=== PATIENT | male | born 1945 | race Caucasian/White ===

== ENCOUNTER → 2017-06-26 08:08 | Outpatient (CLI) | payer MEDICARE, OTHER, SELFPAY ==
[2017-05-20 14:31] VITALS: BMI 25.0
[2017-06-26 12:18] LABS: Absolute Neutrophil Count 2.8 X10^3/uL (2.0-7.7); Basophil# 0.03 X10^3/uL; Basophil% 0.6 % (0-1); Eosinophil# 0.23 X10^3/uL; Eosinophils% 4.8 % (0-5); Hematocrit 45.9 % (40-54); Hemoglobin 15.3 g/dl (13.0-16.5); Lymphocyte % 25.1 % (19-41); Mean Corp Hgb Conc 33.3 g/gl (32-36); Mean Corpuscular Hgb 30.6 pg (27.0-32.0); Mean Corpuscular Volume 91.8 fL (80-94); Mean Platelet Vol. 9.7 fl (6.2-12.0); Monocyte# 0.47 X10^3/uL; Monocyte% 9.8 % (0-10); Neutrophil # 2.84 X10^3/uL (2.7-7.7); Neutrophil % 59.5 % (47-70); Platelet Count 340 K/mm3 (150-450); RBC Distribution Width CV 15.2 % (11.6-14.6); RBC Distribution Width SD 49.4 fl (35.1-43.9); White Blood Count 4.8 K/mm3 (4.4-11.0)
[2017-06-26 12:29] LABS: Anion Gap 10 (5-15); BUN 15 mg/dL (7-18); BUN/Creat Ratio 14.9 RATIO (10-20); Chloride 103 mmol/L (98-107); Creatinine, Serum 1.01 mg/dL (0.70-1.30); EST Glomerular Filtration Rate 77 mL/min (>60); Est Glom Filt Rate - Afr Amer 93 mL/min (>60); Glucose 132 mg/dL (70-110); Sodium Level 141 mmol/L (136-145); T4 Free Direct 1.18 ng/dL (0.76-1.46); Thyroid Stim Hormone (TSH) 1.89 uIU/mL (0.358-3.74)
[2017-06-26 12:40] LABS: POSITIVE COUNT NO; POSITIVE DIFFERENTIAL NO; POSITIVE MORPHOLOGY NO
[2017-06-26 12:42] LABS: International Normalized Ratio 1.8; Prothrombin Time (Protime)PT. 20.1 SECONDS (11.7-14.9)
== END ==
PROVIDERS: Family Provider Family Medicine; PCP Family Medicine; Visit Provider Family Medicine
DX: I48.91 Unspecified atrial fibrillation (principal); I10 Essential (primary) hypertension; E03.9 Hypothyroidism, unspecified
CPT/HCPCS: 36415; 80048; 84439; 84443; 85025; 85610

== ENCOUNTER 2017-08-13 16:54 | Observation (INO) | payer MEDICARE, OTHER, SELFPAY ==
[2017-05-20 14:31] VITALS: BMI 25.0
[2017-08-13] VITALS (13 sets, daily range): BP systolic 109–184; BP diastolic 69–107; PULSE 55–70; RESP 12–18; TEMP 36.5–36.9; O2SAT 94–98; BMI 27.3; BMI 26.5
--- NOTE | 2017-08-13 17:51 | RAD_ITS ---
STUDY: X-RAY CHEST REASON FOR EXAM: Male, 71 years old. Hypertension TECHNIQUE: PA and lateral views of the chest. COMPARISON: May 13, 2016 and January 07, 2017 FINDINGS: The lungs are hyperinflated. No focal consolidation is visualized. Normal size heart. Normal mediastinum and madeline. Normal visualized pulmonary arteries. There is atherosclerotic calcification of the aortic arch with tortuosity. There are diffuse degenerative changes of the visualized thoracic spine. There are stable bilateral rib deformities consistent with healed fractures. There is no demonstrated abnormality of the visualized soft tissue structures of the upper abdomen. RAD/Chest PA and Lateral IMPRESSION: Hyperinflated lungs may reflect underlying COPD. Electronically Signed: Cristal Holly MD at 19:37 EDT Tel , Service support ,
--- NOTE | 2017-08-13 17:51 | EKG12_ITS ---
Test Reason : CP Blood Pressure : / mmHG Vent. Rate : 058 BPM Atrial Rate : 058 BPM P-R Int : 178 ms QRS Dur : 112 ms QT Int : 426 ms P-R-T Axes : 021 -32 -04 degrees QTc Int : 418 ms Sinus bradycardia Left axis deviation Abnormal ECG Confirmed by CHANO SANCHEZ, LY ([id number]), telegraph editor NIKOLAS QUINN ([id number] on 08/14/2017 2:33:40 PM Referred By: SAROJ/STEVE Confirmed By:LY MADDEN MD
[2017-08-13] MEDS: Aspirin 81 MG TAB.CHEW 324 MG PO (18:04)
[2017-08-13 18:22] LABS: Absolute Lymphocyte Count 1.72 X10^3/ul (0.83-4.51); Absolute Neutrophil Count 3.4 X10^3/uL (2.0-7.7); Basophil# 0.02 X10^3/uL; Basophil% 0.3 % (0-1); Eosinophil# 0.24 X10^3/uL; Hematocrit 47.7 % (40-54); Hemoglobin 16.2 g/dl (13.0-16.5); Lymphocyte # 1.72 X10^3/ul (4.0); Lymphocyte % 28.5 % (19-41); Mean Corpuscular Hgb 30.6 pg (27.0-32.0); Mean Platelet Vol. 9.1 fl (6.2-12.0); Monocyte# 0.62 X10^3/uL; Monocyte% 10.3 % (0-10); Neutrophil # 3.42 X10^3/uL (2.7-7.7); Neutrophil % 56.7 % (47-70); Platelet Count 331 K/mm3 (150-450); RBC Distribution Width CV 14.9 % (11.6-14.6); RBC Distribution Width SD 48.2 fl (35.1-43.9)
--- NOTE | 2017-08-13 18:22 | NURSING ---
NO LW OR POA
[2017-08-13 18:23] LABS: POSITIVE COUNT NO; POSITIVE DIFFERENTIAL NO; POSITIVE MORPHOLOGY NO
[2017-08-13] MEDS: Labetalol 20 MG/4 ML Vial 10 MG IV (18:26)
[2017-08-13 18:28] LABS: International Normalized Ratio 1.9; Prothrombin Time (Protime)PT. 22.1 SECONDS (11.7-14.9)
[2017-08-13 18:40] LABS: Anion Gap 5 (5-15); BUN 16 mg/dL (7-18); BUN/Creat Ratio 18.3 RATIO (10-20); Calcium,Total 9.1 mg/dL (8.5-10.1); Chloride 104 mmol/L (98-107); Creatinine, Serum 0.87 mg/dL (0.70-1.30); EST Glomerular Filtration Rate 91 mL/min (>60); Est Glom Filt Rate - Afr Amer 110 mL/min (>60); Estimated Creatinine Clearance 63.32 ml/min; Glucose 90 mg/dL (74-106); Potassium 4.3 mmol/L (3.5-5.1); Sodium Level 139 mmol/L (136-145)
--- NOTE | 2017-08-13 19:43 | NURSING ---
PAGED DR. LUO
--- NOTE | 2017-08-13 19:49 | NURSING ---
DR. LUO CALLED BACK AT 1945
--- NOTE | 2017-08-13 19:54 | ED.VISSUMM ---
- ER Visit Summary Date of Service: 08/13/17 Chief Complaint: Elevated blood pressure History of Present Illness: The patient is a 71 M who was sent in by his card maker for accelerated hypertension. Over the past 2-3 weeks his blood pressures been uncontrolled. He was as high as 230s in the office today despite starting amlodipine. Therefore his physician wanted him evaluated for other causes including renal failure. The patient states he has had a mild headache. On arrival here he had about 15-20 minutes of substernal sharp chest pain which resolved by the time I evaluated him. There was no associated shortness of breath or diaphoresis and he does not have a known history of coronary artery disease. He does have a history of carotid dissections. These were nonsurgical. He is on warfarin for history of A. fib as well. He has had no neurological symptoms such as visual changes weakness paresthesias or speech difficulty. Physical Examination: Initial blood pressure 172/107 vitals otherwise unremarkable Moist mucous members Heart regular rhythm bradycardia 3 out of 6 systolic murmur no carotid bruit Lungs are clear Abdomen soft Extremities nontender without edema 2+ symmetric radial pulses Test Results: EKG shows sinus rhythm at rate of 58. CBC BMP unremarkable and troponin negative. INR 1.9. Two-view chest x-ray shows hyperinflation otherwise normal. Emergency Department Course and Treatment: Patient was given IV labetalol and on reevaluation his blood pressure is 152/93. Patient was sent by his card maker. I again spoke to Dr. Ontiveros. He asked that the patient be admitted for observation. He recommended discontinuing metoprolol in place of carvedilol. Discussed with the hospitalist and admitted. Treatment Plan: [] Disposition: Admit Impression: Accelerated hypertension Chest pain This note was generated with [employer] dictation software. It may contain incorrect words, spelling, and punctuation that were not noted in review of the chart prior to signing ED Disposition - Plan for ED Patient: Chief Complaint: Hypertension Referrals: Tapan Cornelius MD [Primary Care Provider] -
--- NOTE | 2017-08-13 19:59 | ED.DCSUM_ITS ---
- ER Visit Summary Date of Service: 08/13/17 Chief Complaint: Elevated blood pressure History of Present Illness: The patient is a 71 M who was sent in by his machine brusher for accelerated hypertension. Over the past 2-3 weeks his blood pressures been uncontrolled. He was as high as 230s in the office today despite starting amlodipine. Therefore his physician wanted him evaluated for other causes including renal failure. The patient states he has had a mild headache. On arrival here he had about 15-20 minutes of substernal sharp chest pain which resolved by the time I evaluated him. There was no associated shortness of breath or diaphoresis and he does not have a known history of coronary artery disease. He does have a history of carotid dissections. These were nonsurgical. He is on warfarin for history of A. fib as well. He has had no neurological symptoms such as visual changes weakness paresthesias or speech difficulty. Physical Examination: Initial blood pressure 172/107 vitals otherwise unremarkable Moist mucous members Heart regular rhythm bradycardia 3 out of 6 systolic murmur no carotid bruit Lungs are clear Abdomen soft Extremities nontender without edema 2+ symmetric radial pulses Test Results: EKG shows sinus rhythm at rate of 58. CBC BMP unremarkable and troponin negative. INR 1.9. Two-view chest x-ray shows hyperinflation otherwise normal. Emergency Department Course and Treatment: Patient was given IV labetalol and on reevaluation his blood pressure is 152/93. Patient was sent by his machine brusher. I again spoke to Dr. Ontiveros. He asked that the patient be admitted for observation. He recommended discontinuing metoprolol in place of carvedilol. Discussed with the hospitalist and admitted. Treatment Plan: [] Disposition: Admit Impression: Accelerated hypertension Chest pain This note was generated with [employer] dictation software. It may contain incorrect words, spelling, and punctuation that were not noted in review of the chart prior to signing ED Disposition - Plan for ED Patient: Chief Complaint: Hypertension Referrals: Tapan Cornelius MD [Primary Care Provider] -
--- NOTE | 2017-08-13 20:34 | PCM.HP.STD ---
Problem List (1) Paroxysmal A-fib Status: Chronic (2) Aortic stenosis, moderate Status: Chronic (3) Pericarditis Status: Chronic (4) SERGO (obstructive sleep apnea) Status: Chronic (5) Carotid dissection, bilateral Status: Chronic (6) Hypothyroidism Status: Chronic (7) Hypertension Status: Chronic (8) Chest pain Status: Acute Comment: He has been having chest pain now for the past 2 weeks. (9) Dyslipidemia Status: Chronic (10) Hypertensive urgency Status: Acute History of Present Illness Date of Admission: 08/13/17 Chief Complaint: chest pain. The patient is a 71 year old M who was sent to the emergency room for uncontrolled high blood pressure from his community development officer's office. Patient's blood pressure upon arrival was 224/125 at the office. Here it was as high as 184/104. Patient received 2 doses of IV labetalol and currently it is 155/91. While patient was here, he developed midsternal chest pain that lasted for 15 minutes. Patient denied any other symptoms but was noted by others to be diaphoretic. Patient states that this is similar to when he has had pleurisy. Patient's medical records do not notes pleurisy but does note the patient does have a history of pericarditis. Suspect that is probably related with peritonitis that he had had. Patient is currently chest pain-free at this time. Patient is being admitted for further chest pain evaluation and workup. [] Past Medical History Past Medical History (Chronic Problems): Chronic Problems Paroxysmal A-fib (Chronic) Aortic stenosis, moderate (Chronic) Pericarditis (Chronic) SERGO (obstructive sleep apnea) (Chronic) Carotid dissection, bilateral (Chronic) Hypothyroidism (Chronic) Hypertension (Chronic) Dyslipidemia (Chronic) Family history of cardiovascular disease (Chronic) Allergies cephalexin Adverse Reaction (Verified 08/13/17 16:58) Pain in joints levofloxacin [From Levaquin] Adverse Reaction (Verified 08/13/17 16:58) Unknown GENERALIZED ACHINESS Home Medications: Ambulatory Orders Medication Instructions Recorded Co Q-10 1 tablet PO BID 01/07/17 Levothyroxine [Synthroid] 75 mcg PO DAILY 01/07/17 Lisinopril [Zestril] 20 mg PO BID 01/07/17 Metoprolol Tartrate 12.5 mg PO BID 01/07/17 Multivitamin,Therapeutic [Thera] 1 each PO DAILY 01/07/17 Flecainide [Tambocor] 50 mg PO BID 05/20/17 Lysine [l-Lysine] 500 mg PO DAILY 05/20/17 Warfarin [Coumadin (PBKC)] 7.5 mg PO DAILY 05/20/17 Ubidecarenone [Q-Sorb Co Q-10] 100 mg PO BID 08/13/17 Surgical History: appendectomy, herniorrhaphy - Right inguinal, total knee arthroplasty - He had a right total knee arthroplasty 2 years ago and had a left total knee arthroplasty 6 weeks ago., TURP - He is actually had 3 surgeries on his prostate., - - Thymectomy Psychiatric History: No pertinent psych hx Lives: Spouse/ Significant Other Smoking Status: Never smoker Tobacco Use: Non-smoker Alcohol: None Drugs: None - *Family History Paternal History Items: - - His father suddenly at the age of 75 and the patient does not know the cause. Sibling History Items: Heart Disease - He has a brother who is older than he has has had a stent in the past and his twin sister has had an ablation. Review of Systems Constitutional: Denies: Anorexia, Chills, Fever, Weight Change Eyes: Denies: Blurred vision, Double vision HEENT: Denies: Head Aches, Sinus Congestion, Sinus Drainage Cardiovascular: Reports: Chest Pain. Denies: Edema Respiratory: Denies: Cough, Shortness of breath at rest, Sputum production Gastrointestinal: Denies: Abdominal Pain, Nausea, Vomiting Genitourinary: Denies: Dysuria Musculoskeletal: Denies: Joint Pain, Joint Tenderness Skin: Denies: Rash, Wounds Neurological: Denies: Numbness, Tingling, Focal weakness Psychiatric: Denies: Anxiety, Depression, Homicidal Ideations, Suicidal Ideations Endocrine: Denies: Change in Body Habitus, Heat/ Cold Intolerance Hematologic/ Lymphatic: Denies: Easy Bruising, Easy Bleeding, Hx of blood clot VTE Information - Inpt Only VTE Present on Admission: No Patient Problems: Active and Suspected Problems Hypertensive urgency (Acute) - Physical Exam General: Alert, Cooperative, No apparent distress HEENT: Atraumatic, Normocephalic Neck: No Nodes, Thyroid Normal Size and Texture Lungs: Clear to auscultation, Normal air movement, No rhonchi, No wheeze Cardiovascular: Regular rate, Regular Rhythm, Normal S1, Normal S2, No murmurs Abdomen: Bowel Sounds Present, Soft, Non Tender, Non-Distended, No Hepato-splenomegaly Extremities: No edema, No Calf Tenderness Skin: No rashes, No breakdown Musculoskeletal: No Tenderness to Palpation of Joints or Extremities, No Muscle Wasting Neurological: Muscle tone normal, Coordination normal Psych/Mental Status: Normal Affect, Appropriate Vital Signs Temp Pulse Resp BP Pulse Ox 36.9 C 57 L 12 155/91 H 98 08/13/17 16:55 08/13/17 19:56 08/13/17 19:56 08/13/17 19:56 08/13/17 19:56 Oxygen Delivery Method Room Air Weight: 72.2 kg Body Mass Index (BMI) 27.3 Finger Stick Blood Glucose 89 Laboratory Tests Past 24 Hrs 08/13/17 08/13/17 08/13/17 18:10 18:10 18:10 WBC 6.0 RBC 5.30 Hgb 16.2 Hct 47.7 MCV 90.0 MCH 30.6 MCHC 34.0 RDW 14.9 H RDW Differential 48.2 H Plt Count 331 MPV 9.1 Immature Gran % (Auto) 0.200 Neut % (Auto) 56.7 Lymph % (Auto) 28.5 [place] % (Auto) 10.3 H Eos % (Auto) 4.0 Baso % (Auto) 0.3 Absolute Neuts (auto) 3.4 Absolute Lymphs (auto) 1.72 Total Counted Not Reportable PT 22.1 H INR 1.9 Sodium 139 Potassium 4.3 Chloride 104 Carbon Dioxide 30.0 Anion Gap 5 BUN 16 Creatinine 0.87 Estim Creat Clear Calc 63.32 Est GFR (MDRD) Af Amer 110 Est GFR (MDRD) Non-Af 91 BUN/Creatinine Ratio 18.3 Glucose 90 Calcium 9.1 Troponin I < 0.02 EKG reviewed and showed normal sinus rhythm. Clinical Impression(s) from Imaging Studies Chest X-Ray 08/13/17 17:51 IMPRESSION: Hyperinflated lungs may reflect underlying COPD. Electronically Signed: Cristal Holly MD at 19:37 EDT Tel , Service support , Assessment/Plan Active and Suspected Problems Hypertensive urgency (Acute) 1. Chest pain atypical Workup here thus far has been negative Plan is for further workup with a nuclear stress in the morning. 2. Hypertensive urgency Improved. Continue with lisinopril 20 mg twice daily per cardiology's recommendations, change metoprolol tartrate to carvedilol. Patient will be started on carvedilol 6.25 mg twice daily. Patient was on an as needed dose of amlodipine. Amlodipine not be used as a more of a scheduled medication then as needed. Will hold off on starting amlodipine based on how his blood pressure will respond with the carvedilol for now. 3. Carotid dissections stable follow up with vascular surgery 4. pAfib in NSR continue w coumadin and Bblocker 5. DVT proph: on coumadin. Code Visit OBSV E&M: 10346 Initial observation care L3
--- NOTE | 2017-08-13 20:45 | HP.PCM_ITS ---
Problem List (1) Paroxysmal A-fib Status: Chronic (2) Aortic stenosis, moderate Status: Chronic (3) Pericarditis Status: Chronic (4) SERGO (obstructive sleep apnea) Status: Chronic (5) Carotid dissection, bilateral Status: Chronic (6) Hypothyroidism Status: Chronic (7) Hypertension Status: Chronic (8) Chest pain Status: Acute Comment: He has been having chest pain now for the past 2 weeks. (9) Dyslipidemia Status: Chronic (10) Hypertensive urgency Status: Acute History of Present Illness Date of Admission: 08/13/17 Chief Complaint: chest pain. The patient is a 71 year old M who was sent to the emergency room for uncontrolled high blood pressure from his groover operator's office. Patient's blood pressure upon arrival was 224/125 at the office. Here it was as high as 184/104. Patient received 2 doses of IV labetalol and currently it is 155/91. While patient was here, he developed midsternal chest pain that lasted for 15 minutes. Patient denied any other symptoms but was noted by others to be diaphoretic. Patient states that this is similar to when he has had pleurisy . Patient's medical records do not notes pleurisy but does note the patient does have a history of pericarditis. Suspect that is probably related with peritonitis that he had had. Patient is currently chest pain-free at this time. Patient is being admitted for further chest pain evaluation and workup. [] Past Medical History Past Medical History (Chronic Problems): Chronic Problems Paroxysmal A-fib (Chronic) Aortic stenosis, moderate (Chronic) Pericarditis (Chronic) SERGO (obstructive sleep apnea) (Chronic) Carotid dissection, bilateral (Chronic) Hypothyroidism (Chronic) Hypertension (Chronic) Dyslipidemia (Chronic) Family history of cardiovascular disease (Chronic) Allergies cephalexin Adverse Reaction (Verified 08/13/17 16:58) Pain in joints levofloxacin [From Levaquin] Adverse Reaction (Verified 08/13/17 16:58) Unknown GENERALIZED ACHINESS Home Medications: Ambulatory Orders Medication Instructions Recorded Co Q-10 1 tablet PO BID 01/07/17 Levothyroxine [Synthroid] 75 mcg PO DAILY 01/07/17 Lisinopril [Zestril] 20 mg PO BID 01/07/17 Metoprolol Tartrate 12.5 mg PO BID 01/07/17 Multivitamin,Therapeutic [Thera] 1 each PO DAILY 01/07/17 Flecainide [Tambocor] 50 mg PO BID 05/20/17 Lysine [l-Lysine] 500 mg PO DAILY 05/20/17 Warfarin [Coumadin (PBKC)] 7.5 mg PO DAILY 05/20/17 Ubidecarenone [Q-Sorb Co Q-10] 100 mg PO BID 08/13/17 Surgical History: appendectomy, herniorrhaphy - Right inguinal, total knee arthroplasty - He had a right total knee arthroplasty 2 years ago and had a left total knee arthroplasty 6 weeks ago., TURP - He is actually had 3 surgeries on his prostate., - - Thymectomy Psychiatric History: No pertinent psych hx Lives: Spouse/ Significant Other Smoking Status: Never smoker Tobacco Use: Non-smoker Alcohol: None Drugs: None - *Family History Paternal History Items: - - His father suddenly at the age of 75 and the patient does not know the cause. Sibling History Items: Heart Disease - He has a brother who is older than he has has had a stent in the past and his twin sister has had an ablation. Review of Systems Constitutional: Denies: Anorexia, Chills, Fever, Weight Change Eyes: Denies: Blurred vision, Double vision HEENT: Denies: Head Aches, Sinus Congestion, Sinus Drainage Cardiovascular: Reports: Chest Pain. Denies: Edema Respiratory: Denies: Cough, Shortness of breath at rest, Sputum production Gastrointestinal: Denies: Abdominal Pain, Nausea, Vomiting Genitourinary: Denies: Dysuria Musculoskeletal: Denies: Joint Pain, Joint Tenderness Skin: Denies: Rash, Wounds Neurological: Denies: Numbness, Tingling, Focal weakness Psychiatric: Denies: Anxiety, Depression, Homicidal Ideations, Suicidal Ideations Endocrine: Denies: Change in Body Habitus, Heat/ Cold Intolerance Hematologic/ Lymphatic: Denies: Easy Bruising, Easy Bleeding, Hx of blood clot VTE Information - Inpt Only VTE Present on Admission: No Patient Problems: Active and Suspected Problems Hypertensive urgency (Acute) - Physical Exam General: Alert, Cooperative, No apparent distress HEENT: Atraumatic, Normocephalic Neck: No Nodes, Thyroid Normal Size and Texture Lungs: Clear to auscultation, Normal air movement, No rhonchi, No wheeze Cardiovascular: Regular rate, Regular Rhythm, Normal S1, Normal S2, No murmurs Abdomen: Bowel Sounds Present, Soft, Non Tender, Non-Distended, No Hepato- splenomegaly Extremities: No edema, No Calf Tenderness Skin: No rashes, No breakdown Musculoskeletal: No Tenderness to Palpation of Joints or Extremities, No Muscle Wasting Neurological: Muscle tone normal, Coordination normal Psych/Mental Status: Normal Affect, Appropriate Vital Signs Temp Pulse Resp BP Pulse Ox 36.9 C 57 L 12 155/91 H 98 08/13/17 16:55 08/13/17 19:56 08/13/17 19:56 08/13/17 19:56 08/13/17 19:56 Oxygen Delivery Method Room Air Weight: 72.2 kg Body Mass Index (BMI) 27.3 Finger Stick Blood Glucose 89 Laboratory Tests Past 24 Hrs 08/13/17 08/13/17 08/13/17 18:10 18:10 18:10 WBC 6.0 RBC 5.30 Hgb 16.2 Hct 47.7 MCV 90.0 MCH 30.6 MCHC 34.0 RDW 14.9 H RDW Differential 48.2 H Plt Count 331 MPV 9.1 Immature Gran % (Auto) 0.200 Neut % (Auto) 56.7 Lymph % (Auto) 28.5 [place] % (Auto) 10.3 H Eos % (Auto) 4.0 Baso % (Auto) 0.3 Absolute Neuts (auto) 3.4 Absolute Lymphs (auto) 1.72 Total Counted Not Reportable PT 22.1 H INR 1.9 Sodium 139 Potassium 4.3 Chloride 104 Carbon Dioxide 30.0 Anion Gap 5 BUN 16 Creatinine 0.87 Estim Creat Clear Calc 63.32 Est GFR (MDRD) Af Amer 110 Est GFR (MDRD) Non-Af 91 BUN/Creatinine Ratio 18.3 Glucose 90 Calcium 9.1 Troponin I < 0.02 EKG reviewed and showed normal sinus rhythm. Clinical Impression(s) from Imaging Studies Chest X-Ray 08/13/17 17:51 IMPRESSION: Hyperinflated lungs may reflect underlying COPD. Electronically Signed: Cristal Holly MD at 19:37 EDT Tel , Service support , Assessment/Plan Active and Suspected Problems Hypertensive urgency (Acute) 1. Chest pain * atypical * Workup here thus far has been negative * Plan is for further workup with a nuclear stress in the morning. 2. Hypertensive urgency * Improved. * Continue with lisinopril 20 mg twice daily per cardiology's recommendations, change metoprolol tartrate to carvedilol. Patient will be started on carvedilol 6.25 mg twice daily. Patient was on an as needed dose of amlodipine. Amlodipine not be used as a more of a scheduled medication then as needed. Will hold off on starting amlodipine based on how his blood pressure will respond with the carvedilol for now. 3. Carotid dissections * stable * follow up with vascular surgery 4. pAfib * in NSR * continue w coumadin and Bblocker 5. DVT proph: on coumadin. Code Visit OBSV E&M: 31227 Initial observation care L3
[2017-08-14] VITALS (10 sets, daily range): BP systolic 132–151; BP diastolic 80–90; PULSE 50–61; RESP 15–158; TEMP 36.5–36.8; O2SAT 94–97
[2017-08-14] MEDS: Lisinopril 20 MG Tablet PO ×2 (00:10→05:59)
[2017-08-14] MEDS: Carvedilol 6.25 MG Tablet PO ×2 (00:10→09:48)
[2017-08-14] MEDS: Flecainide 100 MG Tablet 50 MG PO ×2 (00:11→09:48)
--- NOTE | 2017-08-14 04:00 | EKG12_ITS ---
Test Reason : AM EKG Blood Pressure : / mmHG Vent. Rate : 052 BPM Atrial Rate : 052 BPM P-R Int : 188 ms QRS Dur : 112 ms QT Int : 464 ms P-R-T Axes : 016 -29 -16 degrees QTc Int : 431 ms Sinus bradycardia Otherwise normal ECG When compared with ECG of 07-JAN-2017 19:32, No significant change was found Confirmed by CHANO SANCHEZ, LY ([id number]), news assignment editor NIKOLAS QUINN ([id number]) on 08/18/2017 1:49:33 PM Referred By: DR DAVIDSON Confirmed By:LY MADDEN MD
[2017-08-14 04:32] LABS: Hematocrit 43.4 % (40-54); Hemoglobin 14.8 g/dl (13.0-16.5); Mean Corp Hgb Conc 34.1 g/gl (32-36); Mean Platelet Vol. 9.2 fl (6.2-12.0); Platelet Count 303 K/mm3 (150-450); RBC Distribution Width SD 48.9 fl (35.1-43.9); Red Blood Count 4.77 M/mm3 (4.6-6.2); White Blood Count 4.9 K/mm3 (4.4-11.0)
[2017-08-14 04:33] LABS: Scan Indicated on CBC? Y/N NO
[2017-08-14 04:38] LABS: Anion Gap 8 (5-15); BUN 17 mg/dL (7-18); BUN/Creat Ratio 21.8 RATIO (10-20); Calcium,Total 8.4 mg/dL (8.5-10.1); Chloride 105 mmol/L (98-107); Cholesterol 224 mg/dL (200); Creatinine, Serum 0.78 mg/dL (0.70-1.30); EST Glomerular Filtration Rate 104 mL/min (>60); Est Glom Filt Rate - Afr Amer 125 mL/min (>60); Estimated Creatinine Clearance 55.09 ml/min; Glucose 86 mg/dL (74-106); High Density Lipoprotein 61 mg/dL; Potassium 3.7 mmol/L (3.5-5.1); Sodium Level 140 mmol/L (136-145); Triglycerides 213 mg/dL; Very Low Density Lipoprotein 43 mg/dL (5-40)
[2017-08-14 04:41] LABS: International Normalized Ratio 1.9
[2017-08-14 04:51] LABS: Partial Thromboplast Time 39.1 Seconds (24.1-36.2)
[2017-08-14] MEDS: Levothyroxine 75 MCG Tablet PO (05:58)
[2017-08-14] MEDS: Aspirin E.C. 81 MG Tablet PO (05:58)
--- NOTE | 2017-08-14 09:17 | STRESSREP ---
Stress Test Report Pharmacologic myocardial perfusion stress test. 71-year-old man with a history of chest pain. Stress protocol: Resting EKG demonstrates sinus bradycardia with a rate of 56 bpm normal intervals and noted resting blood pressure 152/102 mmHg. 0.4 mg of regadenoson was infused per usual protocol followed by rapid intravenous saline flush injection. Continuous EKG monitoring was performed. The maximum heart rate attained was 93 bpm which was 63% of maximum predicted heart rate the maximum workload attained was 1 metabolic equivalent. At rest there were no ST or T-wave changes noted to suggest abnormal flow reserve at peak infusion no ST or T-wave changes were noted suggest abnormal flow reserve. No clinical angina was noted no arrhythmias were noted. Resting hypertension was noted with a blood pressure 154 102. Myocardial perfusion protocol. 11.4 mCi of technetium 99m sestamibi was injected at rest. 0.4 mg regadenoson was infused per usual protocol. At peak infusion 33.1 mCi of technetium 99m sestamibi was injected. Stress images were obtained stress and rest images were reconstructed and compared in the short axis vertical long and horizontal long axis. Gated images were also obtained. Perfusion SPECT analysis: Review of the stress images demonstrate normal uptake of tracer noted in all areas of the myocardium. The resting images similarly demonstrate normal uptake of tracer noted in all areas of the myocardium. No areas of reversibility are noted suggest ischemia. Gated SPECT analysis. The gated ejection fraction is noted to be 61%. Conclusion: Normal pharmacologic myocardial perfusion stress test. Preserved ejection fraction.
--- NOTE | 2017-08-14 09:22 | STRESSREP_ITS ---
Stress Test Report Pharmacologic myocardial perfusion stress test. 71-year-old man with a history of chest pain. Stress protocol: Resting EKG demonstrates sinus bradycardia with a rate of 56 bpm normal intervals and noted resting blood pressure 152/102 mmHg. 0.4 mg of regadenoson was infused per usual protocol followed by rapid intravenous saline flush injection. Continuous EKG monitoring was performed. The maximum heart rate attained was 93 bpm which was 63% of maximum predicted heart rate the maximum workload attained was 1 metabolic equivalent. At rest there were no ST or T- wave changes noted to suggest abnormal flow reserve at peak infusion no ST or T- wave changes were noted suggest abnormal flow reserve. No clinical angina was noted no arrhythmias were noted. Resting hypertension was noted with a blood pressure 154 102. Myocardial perfusion protocol. 11.4 mCi of technetium 99m sestamibi was injected at rest. 0.4 mg regadenoson was infused per usual protocol. At peak infusion 33.1 mCi of technetium 99m sestamibi was injected. Stress images were obtained stress and rest images were reconstructed and compared in the short axis vertical long and horizontal long axis. Gated images were also obtained. Perfusion SPECT analysis: Review of the stress images demonstrate normal uptake of tracer noted in all areas of the myocardium. The resting images similarly demonstrate normal uptake of tracer noted in all areas of the myocardium. No areas of reversibility are noted suggest ischemia. Gated SPECT analysis. The gated ejection fraction is noted to be 61%. Conclusion: Normal pharmacologic myocardial perfusion stress test. Preserved ejection fraction.
[2017-08-14] MEDS: Acetaminophen 325 MG Tablet 650 MG PO (09:48)
[2017-08-14] MEDS: Multivitamins,Therapeutic Tablet 1 TABLET PO (09:48)
[2017-08-14] MEDS: oxyCODONE 5 MG Tablet PO (11:23)
[2017-08-14] MEDS: 0.9% NaCl Peripheral Flush Adult/Peds IV (11:26)
[2017-08-14] MEDS: amLODIPine 5 MG Tablet PO (11:36)
--- NOTE | 2017-08-14 14:57 | DCINST_ITS ---
- Discharge Diagnoses Current Active Problems: Current Active and Chronic Problems Paroxysmal A-fib (Chronic) Aortic stenosis, moderate (Chronic) Pericarditis (Chronic) SERGO (obstructive sleep apnea) (Chronic) Carotid dissection, bilateral (Chronic) Hypertensive urgency (Acute) You will use the following diet at home:: No restrictions Your food should be the consistency of: Regular Your liquids should be the consistency of: Regular/Thin Discharge Activity: Return to Normal Activity Weight Bearing Status: Full weight bearing Allergies/Adverse Reactions: Allergies cephalexin Adverse Reaction (Verified 08/13/17 16:58) Pain in joints levofloxacin [From Levaquin] Adverse Reaction (Verified 08/13/17 16:58) Unknown GENERALIZED ACHINESS Medications to take at Discharge Co Q-10 1 tablet PO BID 01/07/17 Levothyroxine [Synthroid] 75 mcg PO DAILY 01/07/17 Lisinopril [Zestril] 20 mg PO BID 01/07/17 Multivitamin,Therapeutic [Thera] 1 each PO DAILY 01/07/17 Flecainide [Tambocor] 50 mg PO BID 05/20/17 Lysine [l-Lysine] 500 mg PO DAILY 05/20/17 Warfarin [Coumadin] 7.5 mg PO DAILY 05/20/17 Ubidecarenone [Q-Sorb Co Q-10] 100 mg PO BID 08/13/17 Amlodipine [Norvasc] 5 mg PO DAILY #1 tablet 08/14/17 Carvedilol [Coreg (Beta Jarret)] 6.25 mg PO BID #60 tab 08/14/17 Hydrochlorothiazide 12.5 mg PO DAILY #30 cap 08/14/17 The following prescriptions were given: Amlodipine [Norvasc] 5 mg PO DAILY #1 tablet Hydrochlorothiazide 12.5 mg PO DAILY #30 cap Carvedilol [Coreg (Beta Jarert)] 6.25 mg PO BID #60 tab Primary Care Physician: Tapan Cornelius MD [Primary Care Provider] - Please follow up with your Primary Care Physician in: in 2 weeks Please Follow Up With: renal ultrasound/ [facility] Please Follow Up With: Eulogio Ontiveros MD When: as directed
--- NOTE | 2017-08-16 10:42 | PCM.DC.SUM ---
Discharge Date and Diagnosis Date of Admission: 08/13/17 Date of Discharge: 08/14/17 - Primary Discharge Diagnosis #1 musculoskeletal chest pain #2 hypertensive urgency #3 coronary artery disease - Secondary Discharge Diagnosis Chronic Problems Paroxysmal A-fib (Chronic) Aortic stenosis, moderate (Chronic) Pericarditis (Chronic) SERGO (obstructive sleep apnea) (Chronic) Carotid dissection, bilateral (Chronic) Hypothyroidism (Chronic) Hypertension (Chronic) Dyslipidemia (Chronic) Family history of cardiovascular disease (Chronic) Hospital Course and Treatment Operations: None Procedures: Nuclear stress test Summary of Care Provided: The patient is a 71 year old M who was seen in the emergency room at [facility] after being sent in by his windows systems administrator due to elevated blood pressure. According to his windows systems administrator, patient's blood pressures been elevated for the last 2-3 weeks and despite medication changes, the blood pressure remains elevated. Patient did complain of headache. On arrival to the emergency room,patient had a brief episode of chest pain that was sharp and substernal. Workup in the emergency room included an EKG which showed a normal sinus rhythm of 58, troponin was unremarkable, CBC and BMP are unremarkable. Chest x-ray showed hyperinflation but was otherwise normal. Patient was given IV labetalol and his blood pressure decreased, patient was placed in observation status on PCU and it was recommended by his windows systems administrator that his metoprolol should be discontinued and carvedilol should be started. Nuclear stress test was ordered and this was unremarkable. Patient's blood pressure medications were further adjusted during his hospital stay, his was upset that he did not have a renal duplex arterial study but this was not conveyed to the attending physician during his hospitalization that this needs to be done. Patient was set up for this test on 08/17/17, I let his windows systems administrator know about this. On 08/14/17, patient was seen and examined felt in stable condition for discharge home Discharge Activity: Return to Normal Activity Weight Bearing Status: Full weight bearing Home Medications: Medications to take at Discharge Co Q-10 1 tablet PO BID 01/07/17 Levothyroxine [Synthroid] 75 mcg PO DAILY 01/07/17 Lisinopril [Zestril] 20 mg PO BID 01/07/17 Multivitamin,Therapeutic [Thera] 1 each PO DAILY 01/07/17 Flecainide [Tambocor] 50 mg PO BID 12/27/17 Lysine [l-Lysine] 500 mg PO DAILY 05/20/17 Warfarin [Coumadin] 7.5 mg PO DAILY 05/20/17 Ubidecarenone [Q-Sorb Co Q-10] 100 mg PO BID 08/13/17 Amlodipine [Norvasc] 5 mg PO DAILY #1 tablet 08/14/17 Carvedilol [Coreg (Beta Jarret)] 6.25 mg PO BID #60 tab 08/14/17 Hydrochlorothiazide 12.5 mg PO DAILY #30 cap 08/14/17 Following Prescrptions Were Given to Patient: Amlodipine [Norvasc] 5 mg PO DAILY #1 tablet Hydrochlorothiazide 12.5 mg PO DAILY #30 cap Carvedilol [Coreg (Beta Jarret)] 6.25 mg PO BID #60 tab Primary Care Physician: Tapan Cornelius MD [Primary Care Provider] - Please follow up with your Primary Care Physician in: in 2 weeks Please Follow Up With: renal ultrasound/ [facility] Please Follow Up With: Eulogio Ontiveros MD When: as directed Disposition: Home Minutes spent on discharge:: 25 Patient Condition:: Stable Medical Necessity - Tobacco Use Smoking Status: Never smoker Tobacco Use: Non-smoker Meaningful Use Info Meaningful Use Diagnoses (Choose all that apply): None applicable Code Visit OBSV E&M: 26117 Observation care discharge
--- NOTE | 2017-08-16 10:46 | DS.PCM_ITS ---
Discharge Date and Diagnosis Date of Admission: 08/13/17 Date of Discharge: 08/14/17 - Primary Discharge Diagnosis #1 musculoskeletal chest pain #2 hypertensive urgency #3 coronary artery disease - Secondary Discharge Diagnosis Chronic Problems Paroxysmal A-fib (Chronic) Aortic stenosis, moderate (Chronic) Pericarditis (Chronic) SERGO (obstructive sleep apnea) (Chronic) Carotid dissection, bilateral (Chronic) Hypothyroidism (Chronic) Hypertension (Chronic) Dyslipidemia (Chronic) Family history of cardiovascular disease (Chronic) Hospital Course and Treatment Operations: None Procedures: Nuclear stress test Summary of Care Provided: The patient is a 71 year old M who was seen in the emergency room at [facility] after being sent in by his board handler due to elevated blood pressure. According to his board handler, patient's blood pressures been elevated for the last 2-3 weeks and despite medication changes, the blood pressure remains elevated. Patient did complain of headache. On arrival to the emergency room,patient had a brief episode of chest pain that was sharp and substernal. Workup in the emergency room included an EKG which showed a normal sinus rhythm of 58, troponin was unremarkable, CBC and BMP are unremarkable. Chest x-ray showed hyperinflation but was otherwise normal. Patient was given IV labetalol and his blood pressure decreased, patient was placed in observation status on PCU and it was recommended by his board handler that his metoprolol should be discontinued and carvedilol should be started. Nuclear stress test was ordered and this was unremarkable. Patient's blood pressure medications were further adjusted during his hospital stay, his was upset that he did not have a renal duplex arterial study but this was not conveyed to the attending physician during his hospitalization that this needs to be done. Patient was set up for this test on 08/17/17, I let his board handler know about this. On 08/14/17, patient was seen and examined felt in stable condition for discharge home Discharge Activity: Return to Normal Activity Weight Bearing Status: Full weight bearing Home Medications: Medications to take at Discharge Co Q-10 1 tablet PO BID 01/07/17 Levothyroxine [Synthroid] 75 mcg PO DAILY 01/07/17 Lisinopril [Zestril] 20 mg PO BID 01/07/17 Multivitamin,Therapeutic [Thera] 1 each PO DAILY 01/07/17 Flecainide [Tambocor] 50 mg PO BID 12/27/17 Lysine [l-Lysine] 500 mg PO DAILY 05/20/17 Warfarin [Coumadin] 7.5 mg PO DAILY 05/20/17 Ubidecarenone [Q-Sorb Co Q-10] 100 mg PO BID 08/13/17 Amlodipine [Norvasc] 5 mg PO DAILY #1 tablet 08/14/17 Carvedilol [Coreg (Beta Jarret)] 6.25 mg PO BID #60 tab 08/14/17 Hydrochlorothiazide 12.5 mg PO DAILY #30 cap 08/14/17 Following Prescrptions Were Given to Patient: Amlodipine [Norvasc] 5 mg PO DAILY #1 tablet Hydrochlorothiazide 12.5 mg PO DAILY #30 cap Carvedilol [Coreg (Beta Jarret)] 6.25 mg PO BID #60 tab Primary Care Physician: Tapan Cornelius MD [Primary Care Provider] - Please follow up with your Primary Care Physician in: in 2 weeks Please Follow Up With: renal ultrasound/ [facility] Please Follow Up With: Eulogio Ontiveros MD When: as directed Disposition: Home Minutes spent on discharge:: 25 Patient Condition:: Stable Medical Necessity - Tobacco Use Smoking Status: Never smoker Tobacco Use: Non-smoker Meaningful Use Info Meaningful Use Diagnoses (Choose all that apply): None applicable Code Visit OBSV E&M: 97972 Observation care discharge
== END 2017-08-14 14:56 | disposition home or self-care (01) ==
LOC: ED 18:17 → PCU 20:36
PROVIDERS: Emergency Provider Emergency Medicine; Family Provider Family Medicine; PCP Family Medicine; Visit Provider Internal Medicine
DX: R07.89 Other chest pain (principal); I16.0 Hypertensive urgency; I10 Essential (primary) hypertension; I25.10 Atherosclerotic heart disease of native coronary artery without angina pectoris; I48.0 Paroxysmal atrial fibrillation; G47.33 Obstructive sleep apnea (adult) (pediatric); E78.5 Hyperlipidemia, unspecified; E03.9 Hypothyroidism, unspecified; Z79.01 Long term (current) use of anticoagulants; Z79.899 Other long term (current) drug therapy; Z82.49 Family history of ischemic heart disease and other diseases of the circulatory system
CPT/HCPCS: 36415; 71046; 78452; 80048; 80061; 84484; 85025; 85027; 85610; 85730; 93005; 93017; 96374; 99218; 99284; A9500; A4216; G0378; J2785

== ENCOUNTER → 2017-08-17 08:52 | Outpatient (CLI) | payer MEDICARE, OTHER, SELFPAY ==
[2017-05-20 14:31] VITALS: BMI 25.0
--- NOTE | 2017-08-17 09:00 | RDU_ITS ---
Reason For Study: HYPERTENSION Right Renal Artery Left Renal Artery Right renal artery ostium 89.1/28.4 Left renal artery ostium 126.0/41.0 RSV/EDV. PSV/EDV. Right renal artery proximal Left renal artery proximal PSV/EDV 97.0/29.2 PSV/EDV. 122.0/48.5 . Right renal artery mid 83.0/31.7 Left renal artery mid 127.0/42.6 PSV/EDV. PSV/EDV . Right renal artery distal Left renal artery distal 96.5/30.2 101.0/35.4 PSV/EDV. PSV/EDV. Right RAR 1.2. Left RAR 1.5. Right Renal Parenchyma Left Renal Parenchyma Upper Pole Medula 34.2/10.9 Left upper pole medulla 27.8/9.2 PSV/EDV. PSV/EDV . Right upper pole medulla EDR .32 . Left upper pole medulla EDR .33 . Right upper pole medulla R.I. .68 . Left upper pole medulla R.I. .67 . Upper Mars Cortx 18.6/8.3 PSV/EDV. UP Cortex 35.1/12.2 PSV/EDV. Right upper pole cortex EDR .45 . Left upper pole cortex EDR .35 . Right upper pole cortex R.I. .56 . Left upper pole cortex R.I. .65 . Right lower Pole medulla 29.6/9.8 Left lower Pole medulla 24.8/8.6 PSV/EDV . PSV/EDV . Right lower pole medulla EDR .33 . Left lower pole medulla EDR .35 . Right lower pole medulla R.I. .67 . Left lower pole medulla R.I. .65 . Lower Pole Cortex 21.7/8.3 PSV/EDV. Lower Pole Cortx 18.0/6.1 PSV/EDV. Right lower pole cortex EDR .38 . Left lower pole cortex EDR .34 . Right lower pole cortex R.I. .62 . Left lower pole cortex R.I. .66 . Right Renal Hilar Left Renal Hilar Right Hilar avg 36.1/9.5 PSV/EDV. LT Hilar avg 41.0/10.9 PSV/EDV . Right hilar acceleration time 66 Left hilar acceleration time 51 m/sec. m/sec. Right Renal Dimensions Left Renal Dimensions Right kidney size 12.9 cm . Left kidney size 11.6 cm . Right cortical dimension 1.7 cm . Left cortical dimension 1.5 cm . Cysts noted 5.0 x 6.0 cm and 1.9 x 1.8 cm. Aorta Proximal abdominal aorta 1.9 X 1.7 cm . Distal abdominal aorta 1.4 X 1.5 cm . Proximal abdominal aorta peak systolic velocity is 82.1 cm/sec . Distal abdominal aorta peak systolic velocity is 79.3 cm/sec . Interpretation Summary Less than 60% bilateral renal artery stenosis. Preserved renal length of 12.9cm on the right and 11.6cm on the left. Right renal cysts measuring 5 x 6cm and 1.9 x 1.8 cm Normal aortic diameter 1.9 x 1.7cm with normal flow Ordering Physician: Eulogio Ontiveros Referring Physician: Tapan Cornelius Performed By: Yenni Moya RVT
== END ==
PROVIDERS: Family Provider Family Medicine; PCP Family Medicine; Visit Provider Internal Medicine Cardiovascular Disease
DX: I15.0 Renovascular hypertension (principal)
CPT/HCPCS: 93975

== ENCOUNTER → 2017-08-31 10:34 | Outpatient (CLI) | payer MEDICARE, OTHER, SELFPAY ==
[2017-05-20 14:31] VITALS: BMI 25.0
[2017-08-31 11:37] LABS: PSA,Total- Diagnostic 4.71 ng/mL (0.0-4.0)
== END ==
PROVIDERS: Family Provider Family Medicine; PCP Family Medicine; Visit Provider Urology
DX: R97.20 Elevated prostate specific antigen [PSA] (principal)
CPT/HCPCS: 36415; 84153

== ENCOUNTER 2017-10-17 13:19 | Emergency (ER) | payer MEDICARE, OTHER, SELFPAY ==
[2017-05-20 14:31] VITALS: BMI 25.0
[2017-10-17 13:20] VITALS: BP 135/84; PULSE 71; RESP 18; TEMP 37.2; O2SAT 95; BMI 25.8
--- NOTE | 2017-10-17 13:35 | RAD_ITS ---
STUDY: X-RAY CHEST REASON FOR EXAM: Male, 71 years old. Fever. TECHNIQUE: Single AP portable view of the chest. COMPARISON: 08/13/2017. FINDINGS: The lungs are hyperexpanded. There are coarsened interstitial markings suggestive of mild chronic fibrosis. No gross focal infiltrates. No gross effusions. Normal size heart. Normal mediastinum and madeline. Normal visualized pulmonary arteries. Normal visualized aortic arch and descending thoracic aorta. Normal visualized thoracic spine. Normal visualized ribs, clavicles, and shoulders. There is no demonstrated abnormality of the visualized soft tissue structures of the upper abdomen. RAD/Chest 1 View (Portable) IMPRESSION: There are findings consistent with COPD. There is no evidence of acute chest disease. Electronically Signed: Mervin Huang MD at 14:06 EDT , Service support ,
--- NOTE | 2017-10-17 13:35 | EKG12_ITS ---
Test Reason : GEN ILLNESS Blood Pressure : / mmHG Vent. Rate : 063 BPM Atrial Rate : 063 BPM P-R Int : 166 ms QRS Dur : 100 ms QT Int : 404 ms P-R-T Axes : 021 -35 -02 degrees QTc Int : 413 ms Normal sinus rhythm Left axis deviation Abnormal ECG Confirmed by MARGIE SANCHEZ, FREEMAN ([id number]), index editor NIKOLAS QUINN ([id number]) on 10/21/2017 2:21:54 PM Referred By: SAMI Confirmed By:FREEMAN HANSON MD
--- NOTE | 2017-10-17 13:41 | ED.RN ---
PER PT HAS BEEN TAKING ERECTILE DYSFUNCTION MEDICATION HE BOUGHT OUT OF PAPER. PT HAS NOT TAKEN FOR 7 DAYS.
[2017-10-17 13:44] VITALS: BP 142/91; PULSE 78; RESP 16; O2SAT 95
[2017-10-17] MEDS: 0.9% Normal Saline 1,000 ML 150 ML IV (13:45)
--- NOTE | 2017-10-17 13:45 | PCA ---
OLD EKG GOTTEN
[2017-10-17 14:09] LABS: Absolute Lymphocyte Count 0.95 X10^3/ul (0.83-4.51); Absolute Neutrophil Count 4.2 X10^3/uL (2.0-7.7); Basophil# 0.02 X10^3/uL; Basophil% 0.3 % (0-1); Eosinophil# 0.12 X10^3/uL; Eosinophils% 1.8 % (0-5); Hematocrit 43.7 % (40-54); Hemoglobin 15.1 g/dl (13.0-16.5); Lymphocyte # 0.95 X10^3/ul (4.0); Lymphocyte % 14.4 % (19-41); Mean Corp Hgb Conc 34.6 g/gl (32-36); Mean Corpuscular Hgb 30.8 pg (27.0-32.0); Mean Platelet Vol. 8.6 fl (6.2-12.0); Monocyte# 1.32 X10^3/uL; Neutrophil # 4.18 X10^3/uL (2.7-7.7); Neutrophil % 63.2 % (47-70); Platelet Count 310 K/mm3 (150-450); RBC Distribution Width CV 13.9 % (11.6-14.6); Red Blood Count 4.91 M/mm3 (4.6-6.2); White Blood Count 6.6 K/mm3 (4.4-11.0)
[2017-10-17 14:10] LABS: POSITIVE COUNT NO; POSITIVE DIFFERENTIAL NO; POSITIVE MORPHOLOGY NO
[2017-10-17 14:42] LABS: ALB/GLOB Ratio 0.8 RATIO (0.9-2.4); AST(SGOT) 14 U/L (15-37); Alanine Aminotransfer ALT/SGPT 17 U/L (16-61); Albumin, Serum 3.6 g/dL (3.2-5.0); Alkaline Phosphatase 70 U/L (45-117); Anion Gap 7 (5-15); BUN 20 mg/dL (7-18); BUN/Creat Ratio 17.4 RATIO (10-20); Calcium,Total 8.7 mg/dL (8.5-10.1); Chloride 101 mmol/L (98-107); Creatinine, Serum 1.15 mg/dL (0.70-1.30); EST Glomerular Filtration Rate 66 mL/min (>60); Est Glom Filt Rate - Afr Amer 80 mL/min (>60); Estimated Creatinine Clearance 49.76 ml/min; Globulin 4.6 g/dL (2.2-4.2); Glucose 93 mg/dL (74-106); Potassium 4.4 mmol/L (3.5-5.1); Protein, Total 8.2 g/dL (6.4-8.2); Sodium Level 134 mmol/L (136-145)
[2017-10-17 14:56] LABS: Lactic Acid 1.1 mmol/L (0.4-2.0)
[2017-10-17 15:16] LABS: Bacteria 0 SEEN /hpf (None Seen); Squamous Epithelial Cells - UA 0 SEEN /hpf (0-5); White Blood Cells 0 SEEN /hpf (0-5)
[2017-10-17 15:30] VITALS: TEMP 37.1
[2017-10-17 15:34] LABS: Color, Urine Yellow (Yellow); Glucose, Dipstick Normal (Normal); Ketone-Dipstick Negative (Negative); Leukocyte Esterase-Dipstick 25 /ul (Negative); Nitrite-Dipstick Negative (Negative); Occult Blood-Urine 150 /ul (Negative); Protein-Dipstick 30 mg/dl (Negative); Urine Bilirubin Dipstick Negative (Negative); Urine Clarity Clear (Clear); Urine Urobilinogen 1 mg/dl (Normal)
[2017-10-17 15:46] LABS: Hyaline Cast 0-5 SEEN /lpf (0-5)
[2017-10-17 15:47] LABS: Mucous, Urine RARE /hpf (<or=2+); Red Blood Cells-Urine 0-5 SEEN /hpf (0-5)
[2017-10-17 15:59] LABS: Internal QC Validated? YES +Cl - CLEAR BKGD; Monotest Negative (Negative); Record Kit Lot#, Mono 13171517
--- NOTE | 2017-10-17 16:17 | ED.VISSUMM ---
- ER Visit Summary Date of Service: 10/17/17 Chief Complaint: [Fever] History of Present Illness: The patient is a 71 M [presents the emergency department complaint of fever, body aches, and generalized weakness. Patient states that his symptoms started about a week ago. The fever only started 2 days ago. Patient denies any cough. Patient denies nausea, vomiting, or diarrhea. Patient denies any shortness of breath. Patient states at times he will have some mild discomfort with deep breath. Patient denies urinary symptoms. Patient denies sore throat or ear pain. Patient denies rashes. Past medical history significant for hypertension, high cholesterol, pericarditis history, A. fib, BPH.] Physical Examination: [HEENT-PERRLA, EOMI. Cranial nerves II through XII grossly intact. TMs clear. Mucous membranes moist. No adenopathy. No nuchal rigidity, negative Kernig's, negative Brudzinski's. Cardiovascular-regular rate and rhythm without murmur or ectopy Lungs-clear to auscultation, chest wall stable without crepitus or subcu emphysema Abdomen-normoactive bowel sounds, soft, nontender, no rebound or rigidity, no peritoneal signs. Skin-no rashes Extremities-intact ?4, normal range of motion, normal pulses, atraumatic] Test Results: [EKG obtained on arrival showed a sinus rhythm with a ventricular rate of 63 bpm with no acute ST segment changes. Blood cultures ordered. CBC with differential obtained showed a white count 6.6, hemoglobin 15, hematocrit 44, platelets 310. Chemistries unremarkable. Liver enzymes were normal. Urinalysis was normal. Influenza screen was negative, Monospot was negative lactate was normal at 1.1. Chest x-ray showed COPD otherwise nothing acute.] Emergency Department Course and Treatment: [Case was discussed with Dr. Tapan Cornelius who is patient's primary care physician.] Treatment Plan: [At this point I do not feel antibiotics are indicated as no source has been found for the fever and suspect etiology may be viral. Patient will follow up with Dr. Tapan Cornelius in 3-4 days. Patient to return to ER if condition should worsen in any way or new symptoms should arise.] Disposition: [Discharged to home in stable condition] Impression: [Fever-etiology uncertain Myalgias] This note was generated with [employer] software. It may contain incorrect words, spelling, and punctuation that were not noted in review of the chart prior to signing ED Disposition - Plan for ED Patient: Chief Complaint: General Illness Referrals: Tapan Cornelius MD [Primary Care Provider] -
--- NOTE | 2017-10-17 16:21 | ED.DEP ---
ED Disposition - Plan for ED Patient: Chief Complaint: General Illness Instructions: ED Fever Unconf Cause, ED Muscle Aching Referrals: Tapan Cornelius MD [Primary Care Provider] - 3-5 Days
[2017-10-17 16:33] VITALS: BP 141/87; PULSE 76; RESP 18; O2SAT 93
--- NOTE | 2017-10-17 16:34 | ED.RN ---
REVIEWED D/C INSTRUCTIONS, FOLLOW UP CARE, AND S/S THAT WOULD WARRANT A RETURN TO THE ED WITH PT. PT VERBALIZED AN UNDERSTANDING AND DENIES FURTHER QUESTIONS FOR THIS RN. PT SKIN P/W/D, RESP EVEN AND UNLABORED, PT A&O X 3, NO DISTRESS NOTED. PT AMBULATED OUT OF ED, GAIT STEADY.
== END 2017-10-17 16:35 | disposition home or self-care (01) ==
PROVIDERS: Emergency Provider Emergency Medicine; Family Provider Family Medicine; PCP Family Medicine
DX: R50.9 Fever, unspecified (principal); M79.1 Myalgia; I31.9 Disease of pericardium, unspecified; I10 Essential (primary) hypertension; E78.00 Pure hypercholesterolemia, unspecified; I48.91 Unspecified atrial fibrillation; N40.0 Benign prostatic hyperplasia without lower urinary tract symptoms; J44.9 Chronic obstructive pulmonary disease, unspecified; Z79.01 Long term (current) use of anticoagulants; Z79.899 Other long term (current) drug therapy
CPT/HCPCS: 71045; 80053; 81001; 83605; 85025; 86308; 87040; 87804; 93005; 99283

== ENCOUNTER → 2017-11-24 14:56 | Outpatient (CLI) | payer MEDICARE, OTHER, SELFPAY ==
[2017-05-20 14:31] VITALS: BMI 25.0
--- NOTE | 2017-11-24 | IMM_PTH ---
PATIENT: HANG KEENAN LOC: [facility] U#:[id number] AGE/SX: 79/M ROOM: RE11/24/[address]: Dr. Devon Briones MD : 1945 BED: DIS: SPEC #: [id number] RECD: 11/30/17 09:34 STATUS: CASSIDY REQ #: [id number] RHYS: 11/24/17 00:[address]: Devon Briones DEPT: IMMUNOHISTOCHEMISTRY RECD BY: Zahida Montano ENTERED: 11/30/17 09:35 SP TYPE: IMMUNO OTHR DR: Dr. Tapan Cornelius MD Tissues: C - PROSTATE RIGHT Procedures: P40 (add) 34BE12 (initial) PHYSICIAN & INSTITUTION [place] [id number] SPECIMEN INFORMATION: Tissue Source: C - Right prostate, base, core biopsy Clinical Info: Elevated PSA Specimen Number: [id number] CPT code: 44443, 19931 METHODOLOGY: Deparaffinized sections of prefer/formalin-fixed tissue or PAP/DQ stained slides are incubated with monoclonal/polyclonal antibodies/oligonucleotide probes. Localization is made via biotin free immunoperoxidase method. Appropriate controls are performed and reacted as expected. Results on target cell population are indicated in the following table: RESULTS: ANTIBODY / CLONE RESULT Block C P40 (BC28) positive 34BE12 (34BE12) positive These tests were developed and their performance characteristics determined by [facility]. They may not have been cleared or approved by the U.S. Food and Drug Administration. The FDA has determined that such clearance or approval is not necessary. INTERPRETATION: C. Right prostate, base, core biopsy: Benign prostatic tissue. AM:antelmo 11/30/17
--- NOTE | 2017-11-24 08:00 | PROSBIL_PTH ---
PATIENT: HANG KEENAN LOC: [facility] U#:[id number] AGE/SX: 79/M ROOM: RE11/24/[address]: Dr. Devon Briones MD : 1945 BED: DIS: SPEC #: [id number] RECD: 11/24/17 14:52 STATUS: CASSIDY ANKITA #: [id number] RHYS: 11/24/17 08:[address]: Devon Briones DEPT: SURGICAL PATHOLOGY RECD BY: Raffy Kimball ENTERED: 11/26/17 08:04 SP TYPE: PROST BX FREDI DR: Dr. Tapan Cornelius MD Tissues: A - PROSTATE RIGHT B - PROSTATE RIGHT C - PROSTATE RIGHT D - PROSTATE LEFT E - PROSTATE LEFT F - PROSTATE LEFT Procedures: PROSTATE BX HEADER OPERATION: Prostate biopsy PRE-OP DIAGNOSIS: Elevated PSA TISSUE SUBMITTED: A - Right apex, B - Right mid, C - Right base, D - Left apex, E - Left mid, F - Left base MICROSCOPIC DIAGNOSIS A. Right prostate, apex, core biopsy: Minimal chronic inflammation. B. Right prostate, mid, core biopsy: Focal glandular atrophy. Mild chronic inflammation. C. Right prostate, base, core biopsy: Focal glandular atrophy. Mild chronic inflammation. See comment. D. Left prostate, apex, core biopsy: Focal glandular atrophy. Mild chronic inflammation and focal acute inflammation. E. Left prostate, mid, core biopsy: Focal glandular atrophy. Mild chronic inflammation. F. Left prostate, base, core biopsy: Focal glandular atrophy. Mild chronic inflammation. AM:antelmo 11/27/17 COMMENT Immunohistochemistry ([id number]) supports the above diagnosis. MICROSCOPIC DESCRIPTION Slides are reviewed. GROSS DESCRIPTION A - Received is one container designated prostate, right apex. The specimen consists of two elongated fragments of light perez-white soft tissue each measuring 1.5 cm in length and 0.1 cm in diameter. The specimen is totally submitted in one cassette. B - Received is one container designated prostate, right mid. The specimen consists of two elongated fragments of light perez-white soft tissue each measuring 1.5 cm in length and 0.1 cm in diameter. The specimen is totally submitted in one cassette. C - Received is one container designated prostate, right base. The specimen consists of two elongated fragments of light perez-white soft tissue each measuring 1.5 cm in length and 0.1 cm in diameter. The specimen is totally submitted in one cassette. D - Received is one container designated prostate, left apex. The specimen consists of two elongated fragments of light perez-white soft tissue each measuring 1 cm in length and 0.1 cm in diameter. The specimen is totally submitted in one cassette. E - Received is one container designated prostate, left mid. The specimen consists of two elongated fragments of light perez-white soft tissue each measuring 1.5 cm in length and 0.1 cm in diameter. The specimen is totally submitted in one cassette. F - Received is one container designated prostate, left base. The specimen consists of two elongated fragments of light perez-white soft tissue each measuring 1.5 cm in length and 0.1 cm in diameter. The specimen is totally submitted in one cassette. / AM:antelmo 11/26/17 TC:3 CPT: G0146
== END ==
PROVIDERS: Family Provider Family Medicine; PCP Family Medicine; Visit Provider Urology
DX: R97.20 Elevated prostate specific antigen [PSA] (principal)
CPT/HCPCS: 88305; 88341; 88342; G0416

== ENCOUNTER → 2018-03-05 08:29 | Outpatient (CLI) | payer MEDICARE, OTHER, SELFPAY ==
[2017-05-20 14:31] VITALS: BMI 25.0
[2018-03-05 12:40] LABS: Absolute Lymphocyte Count 1.35 X10^3/ul (0.83-4.51); Absolute Neutrophil Count 3.5 X10^3/uL (2.0-7.7); Basophil# 0.02 X10^3/uL; Basophil% 0.3 % (0-1); Eosinophil# 0.25 X10^3/uL; Eosinophils% 4.4 % (0-5); Hematocrit 46.1 % (40-54); Hemoglobin 15.3 g/dl (13.0-16.5); Lymphocyte # 1.35 X10^3/ul (4.0); Lymphocyte % 23.6 % (19-41); Mean Corp Hgb Conc 33.2 g/gl (32-36); Mean Corpuscular Hgb 30.4 pg (27.0-32.0); Mean Corpuscular Volume 91.7 fL (80-94); Mean Platelet Vol. 9.5 fl (6.2-12.0); Monocyte% 10.5 % (0-10); Neutrophil # 3.49 X10^3/uL (2.7-7.7); Platelet Count 314 K/mm3 (150-450); RBC Distribution Width CV 14.1 % (11.6-14.6); RBC Distribution Width SD 46.3 fl (35.1-43.9); Red Blood Count 5.03 M/mm3 (4.6-6.2); White Blood Count 5.7 K/mm3 (4.4-11.0)
[2018-03-05 12:41] LABS: POSITIVE COUNT NO; POSITIVE DIFFERENTIAL NO; POSITIVE MORPHOLOGY NO
[2018-03-05 12:59] LABS: Anion Gap 4 (5-15); BUN 23 mg/dL (7-18); BUN/Creat Ratio 22.3 RATIO (10-20); Calcium,Total 8.9 mg/dL (8.5-10.1); Chloride 106 mmol/L (98-107); Creatinine, Serum 1.03 mg/dL (0.70-1.30); EST Glomerular Filtration Rate 75 mL/min (>60); Est Glom Filt Rate - Afr Amer 91 mL/min (>60); Glucose 94 mg/dL (74-106); Sodium Level 138 mmol/L (136-145); Thyroid Stim Hormone (TSH) 2.36 uIU/mL (0.358-3.74)
== END ==
PROVIDERS: Family Provider Family Medicine; PCP Family Medicine; Visit Provider Family Medicine
DX: I10 Essential (primary) hypertension (principal); I48.91 Unspecified atrial fibrillation; E03.9 Hypothyroidism, unspecified
CPT/HCPCS: 36415; 80048; 83735; 84439; 84443; 85025

== ENCOUNTER → 2018-06-29 09:05 | Outpatient (CLI) | payer MEDICARE, OTHER, SELFPAY ==
[2017-05-20 14:31] VITALS: BMI 25.0
[2018-06-29 12:42] LABS: T4 Free Direct 1.22 ng/dL (0.76-1.46); Thyroid Stim Hormone (TSH) 1.32 uIU/mL (0.358-3.74)
== END ==
PROVIDERS: Family Provider Family Medicine; PCP Family Medicine; Visit Provider Family Medicine
DX: E03.9 Hypothyroidism, unspecified (principal)
CPT/HCPCS: 36415; 84439; 84443

== ENCOUNTER → 2018-09-14 07:50 | Outpatient (CLI) | payer MEDICARE, OTHER, SELFPAY ==
[2017-05-20 14:31] VITALS: BMI 25.0
--- NOTE | 2018-09-14 07:53 | CT_ITS ---
STUDY: CT ABDOMEN AND PELVIS WITH AND WITHOUT CONTRAST REASON FOR EXAM: Male, 72 years old. 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 RADIATION DOSAGE (If Supplied By Facility): CTDIvol = ( 17.43 ) mGy, DLP = ( 1624.77 ) mGycm TECHNIQUE: Transaxial images were obtained from the dome of the diaphragm to the symphysis pubis without oral contrast. 100mL IV Isovue 300 was administered. Sagittal and coronal images were reconstructed. Individualized dose optimization techniques were used for this CT. COMPARISON: March 17, 2017. FINDINGS: The visualized lung bases are unremarkable for right greater than left bibasilar dependent atelectasis. There is a 5 mm well-circumscribed hypodensity within the medial segment left hepatic lobe seen on sequence 3 image 15. The liver otherwise appears unremarkable. Normal gallbladder and extrahepatic biliary system. Normal spleen. Normal pancreas. Normal bilateral adrenal glands. There is a stable anterior upper pole renal cyst. This finding measures water density. 5.75 cm in maximum extent. This finding is homogeneous and measures water density. Normal left kidney. Normal visualized stomach. There are multiple, scattered,, nonenhanced air-fluid levels throughout nondistended loops of small bowel. Diverticula There is non-visualization of the appendix. No obstruction. No free fluid. No free air. The aorta system is remarkable for multifocal calcified plaque without delineation of aneurysm. Normal inferior vena cava. The urinary bladder demonstrates diffuse wall thickening. The seminal vesicles are also enlarged. The prostate is quite enlarged containing multiple dystrophic calcifications and demonstrating mass effect upon the urinary bladder base. Normal abdominal wall. There is no acute osseous abnormality. There is no suspicious lytic or blastic osseous finding. Mild diffuse degenerative changes of the spine are identified. Stable left fatty only inguinal hernia. CT/CT Abd/Pelvis W/WO Contrast IMPRESSION: The 5 mm in hypodensity within the medial segment left hepatic lobe most consistent with a cyst versus a small hemangioma. Upon further review there is decreased overall attenuation of the liver most commonly secondary to fatty infiltration/steatosis Bilateral renal cysts. No description. No free air. Multifocal calcified vascular plaque. Fatty only periumbilical hernia. Small fatty left inguinal hernia. Atherosclerotic peripheral vascular disease. No evident aneurysm. Diffuse Urinary bladder wall thickening probably a manifestation of chronic outlet obstruction. Small, fatty only umbilical hernia. There is very prominent prostatomegaly with mass effect upon the urinary bladder base. This finding appears stable. Electronically Signed: Andrea Saenz MD at 15:33 EDT , Service support ,
[2018-09-14 08:06] LABS: EGFR FINGERSTICK > 60.0000 mL/min (>60)
== END ==
PROVIDERS: Family Provider Family Medicine; PCP Family Medicine; Referring Provider Nurse Practitioner Adult Health; Visit Provider Nurse Practitioner Adult Health
DX: R31.0 Gross hematuria (principal)
CPT/HCPCS: 74178; Q9967

== ENCOUNTER → 2018-11-02 08:04 | Outpatient (CLI) | payer MEDICARE, OTHER, SELFPAY ==
[2017-05-20 14:31] VITALS: BMI 25.0
[2018-10-28 11:09] VITALS: BMI 26.2
--- NOTE | 2018-11-02 08:20 | RAD_ITS ---
HISTORY: PRE OP; H/O THYMUS GLAND CA WITH REMOVAL, HEART MURMUR ADDITIONAL HISTORY: None provided. COMPARISON: 10/17/2017, 05/13/2016 TECHNIQUE: Frontal and lateral chest radiographs. Number of images including paperwork: 2 FINDINGS: LUNGS AND PLEURA: Hyperinflation. No consolidation, mass or pleural effusion. Minimal linear basilar opacities appear similar, probably scarring. CARDIAC SILHOUETTE: Stable. MEDIASTINUM AND ANTOLIN: Stable. UPPER ABDOMEN: Unremarkable. SKELETON AND SOFT TISSUES: No acute findings. Degenerative changes. OTHER DEVICES AND HARDWARE: None. RAD/Chest PA and Lateral IMPRESSION: No acute cardiopulmonary abnormality. Hyperinflation suggesting COPD. at 2225 Reported and signed by: Akilah Flynn MD Electronically Signed: Akilah Flynn MD at 22:24 EDT Tel , Service support ,
[2018-11-02 08:44] LABS: Absolute Lymphocyte Count 1.49 X10^3/ul (0.83-4.51); Absolute Neutrophil Count 4.5 X10^3/uL (2.0-7.7); Basophil# 0.03 X10^3/uL; Basophil% 0.4 % (0-1); Eosinophil# 0.32 X10^3/uL; Eosinophils% 4.5 % (0-5); Hemoglobin 16.3 g/dl (13.0-16.5); Lymphocyte # 1.49 X10^3/ul (4.0); Mean Corpuscular Hgb 30.4 pg (27.0-32.0); Mean Corpuscular Volume 89.4 fL (80-94); Monocyte# 0.73 X10^3/uL; Monocyte% 10.3 % (0-10); Neutrophil # 4.49 X10^3/uL (2.7-7.7); Neutrophil % 63.4 % (47-70); Platelet Count 325 K/mm3 (150-450); RBC Distribution Width CV 14.8 % (11.6-14.6); RBC Distribution Width SD 47.6 fl (35.1-43.9); Red Blood Count 5.37 M/mm3 (4.6-6.2); White Blood Count 7.1 K/mm3 (4.4-11.0)
[2018-11-02 08:47] LABS: POSITIVE COUNT NO; POSITIVE DIFFERENTIAL NO; POSITIVE MORPHOLOGY NO
[2018-11-02 08:52] LABS: International Normalized Ratio 2.2; Prothrombin Time (Protime)PT. 24.1 SECONDS (11.7-14.9)
[2018-11-02 09:07] LABS: AST(SGOT) 20 U/L (15-37); Alanine Aminotransfer ALT/SGPT 27 U/L (16-61); Albumin, Serum 3.9 g/dL (3.2-5.0); Alkaline Phosphatase 76 U/L (45-117); Anion Gap 8 (5-15); BUN 20 mg/dL (7-18); BUN/Creat Ratio 21.6 RATIO (10-20); Bilirubin, Direct 0.15 mg/dL (0.00-0.30); Calcium,Total 9.1 mg/dL (8.5-10.1); Chloride 104 mmol/L (98-107); Cholesterol 228 mg/dL (200); Creatinine, Serum 0.93 mg/dL (0.70-1.30); EST Glomerular Filtration Rate 84 mL/min (>60); Est Glom Filt Rate - Afr Amer 102 mL/min (>60); Globulin 4.4 g/dL (2.2-4.2); Glucose 98 mg/dL (74-106); High Density Lipoprotein 71 mg/dL; Potassium 4.4 mmol/L (3.5-5.1); Protein, Total 8.3 g/dL (6.4-8.2); Sodium Level 141 mmol/L (136-145); Triglycerides 120 mg/dL; Very Low Density Lipoprotein 24 mg/dL (5-40)
== END ==
PROVIDERS: Family Provider Family Medicine; PCP Family Medicine; Referring Provider Internal Medicine Cardiovascular Disease; Visit Provider Internal Medicine Cardiovascular Disease
DX: I35.0 Nonrheumatic aortic (valve) stenosis (principal); I48.0 Paroxysmal atrial fibrillation; E78.5 Hyperlipidemia, unspecified; R07.89 Other chest pain
CPT/HCPCS: 36415; 71046; 80048; 80061; 80076; 85025; 85610

== ENCOUNTER → 2018-11-05 14:31 | Outpatient (CLI) | payer MEDICARE, OTHER, SELFPAY ==
[2017-05-20 14:31] VITALS: BMI 25.0
[2018-10-28 11:09] VITALS: BMI 26.2
--- NOTE | 2018-11-05 14:34 | ECHOD_ITS ---
Reason For Study: VAVLE REPLACEMENT-EVAL Procedure This was a 2D Doppler, Color Flow transthoracic echocardiogram. Exam performed in department. Left Ventricle Normal size and thickness. The estimated ejection fraction is 65 %. Stage 1 diastolic dysfunction. No regional wall motion abnormalities noted. Right Ventricle Normal size and thickness. Normal systolic function. Atria Normal left atrium. Normal right atrium. Normal atrial septum. Mitral Valve The mitral valve is structurally normal. No prolapse or stenosis seen. Tricuspid Valve Normal tricuspid valve. Trivial tricuspid valve insufficiency. Right ventricular systolic pressure estimated to be 34 mmHg. Aortic Valve Trisinus/trileaflet aortic valve. Moderate focal aortic valve thickening. Moderate diffuse aortic valve thickening. Moderate restriction of the aortic valve. Moderate aortic stenosis. Peak aortic valve gradient 40 mmHg. Mean aortic valve gradient 25 mmHg. Calculated aortic valve area (continuity equation) is 1.2 cm2. Pulmonic Valve Normal pulmonic valve. Trivial pulmonic valve insufficiency. Great Vessels Normal aortic root. Mild atherosclerosis of the aortic arch. Normal inferior vena cava. Inferior vena cava collapse with sniff. Pericardium/Pleural No pericardial effusion. MMode/2D Measurements & Calculations LVIDd: 4.5 cm IVSd: 1.1 cm LVOT diam: 2.0 cm LVIDs: 2.8 cm LVPWd: 1.1 cm LVOT area: 3.3 cm2 RVDd: 2.8 cm FS: 36.8 % Ao root diam: 3.4 cm LAV(MOD-bp): 40.6 ml LVAd ap4: 26.8 cm2 LAV(MOD-bp) Indexed: 22.9 ml/m2 EDV(MOD-sp4): 72.7 ml LAV(MOD-sp2): 42.6 ml EDV(sp4-el): 75.6 ml LAV(MOD-sp4): 36.1 ml LVAs ap4: 15.7 cm2 ESV(MOD-sp4): 32.9 ml ESV(sp4-el): 33.3 ml EF(MOD-sp4): 54.7 % EF(sp4-el): 56.0 % SV(MOD-sp4): 39.8 ml SV(sp4-el): 42.3 ml LA A4 area: 14.7 cm2 LA dimension(2D): 4.2 cm RA A4 area: 10.8 cm2 Time Measurements MV dec time: 0.34 sec Doppler Measurements & Calculations MV E max kevin: 57.1 cm/sec Lat Peak E' Kevin: 9.5 cm/sec Med Peak E' Kevin: 6.9 cm/sec MV A max kevin: 82.2 cm/sec E/E' lat: 6.0 E/E' med: 8.2 MV E/A: 0.69 Ao V2 max: 317.3 cm/sec LV V1 max: 109.5 cm/sec SV(LVOT): 83.3 ml Ao max P.3 mmHg LV V1 max P.8 mmHg Ao V2 mean: 235.6 cm/sec LV V1 mean P.4 mmHg Ao mean P.5 mmHg LV V1 mean: 71.0 cm/sec Ao V2 VTI: 64.1 cm LV V1 VTI: 25.6 cm NADEGE(I,D): 1.3 cm2 NADEGE(V,D): 1.1 cm2 PA V2 max: 139.8 cm/sec TR max kevin: 266.9 cm/sec PI dec slope: 154.5 cm/sec2 TR max P.5 mmHg Interpretation Summary The estimated ejection fraction is 65 %. Stage 1 diastolic dysfunction. Trivial tricuspid valve insufficiency. Right ventricular systolic pressure estimated to be 34 mmHg. At least moderate aortic stenosis; may be underestimated. Peak aortic valve gradient 40 mmHg. Mean aortic valve gradient 25 mmHg. Calculated aortic valve area (continuity equation) is 1.2 cm2. Compared to echo report dated 02/24/2013, LV function has remained the same, but aortic stenosis has gone from mild to at least moderate. Ordering Physician: Ryan Bermudez Referring Physician: MANNY ROPER Performed By: Padmaja Clemente RDCS
== END ==
PROVIDERS: Family Provider Family Medicine; PCP Family Medicine; Referring Provider Internal Medicine Cardiovascular Disease; Visit Provider Internal Medicine Cardiovascular Disease
DX: R07.89 Other chest pain (principal)
CPT/HCPCS: 93306

== ENCOUNTER 2018-11-12 06:41 | Day surgery (SDC) | payer MEDICARE, OTHER, SELFPAY ==
[2017-05-20 14:31] VITALS: BMI 25.0
[2018-10-28 11:09] VITALS: BMI 26.2
[2018-11-10 14:16] VITALS: BMI 26.2
[2018-11-12 06:55] LABS: Prothrombin Time Fingerstick 16.3 SEC (11.9-14.4)
[2018-11-12 09:36] LABS: Blood Gas Specimen Type VEN; SITE OTHER; VBG BASE EXCESS -1 mmol/L (-1.0-3.5); VBG Bicarbonate 25 mmol/L (22-26); VBG Oxygen Content 26 mmol/L (23-33); VBG PO2 41 mmHg (25-40); VBG SO2 73 % (50-70); VBG pCO2 45.1 mmHg (41-51); VBG pH 7.35 (7.32-7.42)
[2018-11-12 09:36] LABS: Base Excess -1 mmol/L (-2 to +2); Bicarbonate 24.3 mmol/L (22-26); Blood Gas Specimen Type ART; PO2 65 mmHG (75-100); SO2 91 % (95-99); Total Carbon Dioxide 26 mmol/L; pCO2 44.4 mmHg (35-45); pH 7.35 (7.35-7.45)
[2018-11-12 09:36] LABS: Blood Gas Specimen Type VEN; VBG BASE EXCESS -1 mmol/L (-1.0-3.5); VBG Bicarbonate 25 mmol/L (22-26); VBG Oxygen Content 26 mmol/L (23-33); VBG PO2 41 mmHg (25-40); VBG SO2 73 % (50-70); VBG pCO2 44.3 mmHg (41-51); VBG pH 7.35 (7.32-7.42)
--- NOTE | 2018-11-12 09:46 | CL.D_ITS ---
Patient Name: HANG KEENAN Study Date: 11/12/2018 Performing: Ryan Bermudez MD Ht: 64.96 inches 165 cm : 1945 Wt: 158.73 lbs 72 kg Age: 72 Gender: male BSA: 1.79 PROCEDURE(S) PERFORMED [id number]/LHC/COR/LV DC11-AO ROOT ANGIO WITH HEART CATH CLINICAL PROFILE AND INDICATIONS Indications: New Onset Angina <= 2 months, Suspected CAD, Valvular Disease, Cardiac Transplantati on evaluation - postoperative Heart Failure: None Stress/Imaging Date: 08/14/2017Stress Test with SPECT MPI: Negative Angina Classification Anginal Classification w/in 2 Weeks: CCS II CAD Presentations: Unstable angina. 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 Surgical Intervention DEVEN in 1-2 week to eval for AVR vs medical management followed by PCI to LAD. Restart lovenox on 11/14/2108. Start plavix 75mg po daily. Manual sheath removal. DESCRIPTION OF PROCEDURE The patient arrived to the procedure lab. The risks and benefits of the procedure as well as a full d escription of our services here and current unavailability of surgical backup were fully explained to the patient and/or their significant other prior to the catheterization. The Timeout was completed, verifying the correct patient and procedure. The patient's procedural site was prepped and draped in the usual fashion. Local anesthetic was given subcutaneously to right groin region with Lidocaine 2%. Using a modified Seldinger technique, arterial access was obtained via the right femoral artery, a 4 Fr sheath was inserted Venous access was obtained via the right femoral vein, a 7Fr sheath was insert ed. A 7Fr thermal dilution catheter was inserted and right heart pressures were recorded, it was then advanced to PA position for cardiac outputs. Thermal dilution cardiac outputs were then recorded. O2 saturations were then obtained. Simultaneous pressures were then recorded. Left Ventriculography was performed in MCARTHUR projection using a 4 Fr. Pigtail catheter. LV to AO pullback pr essures were then recorded. Left Coronary Artery selective angiography was performed in multiple view s using a 4 Fr. JL5 catheter. Right Coronary Artery selective angiography was then performed in multi ple views using a 4 Fr. 3DRC catheter.The arterial sheath was pulled and manual compression applied u ntil hemostasis is achieved. CORONARY ANGIOGRAPHY DOMINANCE: Right Dominant LEFT HEART ASSESSMENT Left Ventricular Ejection Fraction: by LV Gram 65 % Normal LV wall motion Normal Left Ventricular systolic function RIGHT HEART ASSESSMENT Thermal CO: 5.23 Thermal CI: 2.92 Anusha CO: 5.97 Anusha CI: 3.34 PW: 02/28 5 PA: 8 15 RV: 28/0 4 RA: 11/25 2 PVR: 153 SVR: 1652 Mitral Valve Area: >3.50 Mitral Valve index: 1.96 Mitral Valve Mean Gradient: 10.5 Right Heart pressures - normal LEFT MAIN: Angiographically normal LEFT ANTERIOR DESCENDING ARTERY: PROX LAD: Mild luminal irregularities less than 30% MID LAD: 85 % Stenosis CIRCUMFLEX ARTERY: MID CIRC: Moderate luminal irregularities up to 50% RIGHT CORONARY ARTERY: Mild luminal irregularities less than 30% RT PDA: Proximal - Mild luminal irregularities VALVE FINDINGS: Aortic Valve Stenosis - mild Aortic Valve Insufficiency: Grade 1 AORTIC ROOT: Angiographically normal COMPLICATIONS No Complications PROCEDURE MEDICATIONS SUMMARY OF HEMODYNAMIC DATA Time AIR REST ECG 07:31:36 RA 11/25 (2) SV 09:05:44 RV 28/0, 4 09:06:14 PW 02/28 (5) PV 09:07:33 PA /8 (15) PA 09:07:46 LV 162/-15, 11 09:18:42 LV 161/-17, 10 09:18:49 LV 164/-17, 9 09:19:15 PW (16) 09:19:15 LV 157/-16, 8 09:19:22 PW 03/02 (6) 09:19:22 LV 164/-15, 10 09:19:32 PW 03/02 (6) 09:19:32 LV 155/-16, 10 09:19:56 RV 28/0, 4 09:19:56 LV 160/-14, 14 09:21:08 LV 166/-13, 14 09:21:17 LVp 170/-14, 14 09:21:22 AOp 165/76 (109) 09:21:27 AO 150/81 (110) SA 09:21:58 Valve Area (c P-P/ms Time AIR REST Mitral 3.50 10.5 mn/200 ms 09:19:22 Mitral 3.50 14.2 mn/117 ms 09:19:32 Type SV CO (l/m) CI (l/m/ HR Time AIR REST Thermal 90.20 5.23 2.92 58 07:31:36 Anusha 102.90 5.97 3.34 58 07:31:36 Label % O2 Pres/Loc Time AIR REST AO 91 PV 09:27:53 PA 73 PA 09:27:58 Signed By Ryan Bermudez MD On 11/12/2018 09:45:46 Ryan Bermudez MD
== END 2018-11-12 14:30 | disposition home or self-care (01) ==
PROVIDERS: Family Provider Family Medicine; PCP Family Medicine; Referring Provider Internal Medicine Cardiovascular Disease; Visit Provider Internal Medicine Cardiovascular Disease
DX: I25.110 Atherosclerotic heart disease of native coronary artery with unstable angina pectoris (principal); I35.2 Nonrheumatic aortic (valve) stenosis with insufficiency; E78.5 Hyperlipidemia, unspecified; I10 Essential (primary) hypertension; I73.9 Peripheral vascular disease, unspecified; R07.89 Other chest pain; E03.9 Hypothyroidism, unspecified; I48.0 Paroxysmal atrial fibrillation; I34.0 Nonrheumatic mitral (valve) insufficiency; Z79.01 Long term (current) use of anticoagulants; Z79.899 Other long term (current) drug therapy
CPT/HCPCS: 36416; 82803; 85610; 93460; 93567; J7040; C1751; C1769; C1894; J2405; Q9967

== ENCOUNTER 2018-11-23 08:37 | Day surgery (SDC) | payer MEDICARE, OTHER, SELFPAY ==
[2017-05-20 14:31] VITALS: BMI 25.0
[2018-11-10 14:16] VITALS: BMI 26.2
[2018-11-22 15:07] VITALS: BMI 26.2
[2018-11-23] VITALS (22 sets, daily range): BP systolic 125–162; BP diastolic 71–99; PULSE 52–73; RESP 12–20; TEMP 36–36.2; O2SAT 91–97; BMI 23.5; BMI 26.2
--- NOTE | 2018-11-23 08:39 | ECHOTEE_ITS ---
Reason For Study: Aortic stenosis Medication DEVEN probe passed without difficulty. No complications were noted. [id number] gargled and swallowed. Cetacaine Topical [place] given X2 orally. Versed 2 mg given slow IVP. Fentanyl 25 mcg given slow IVP. Performed a rapid injection of agitated mix of 9 cc saline and 1cc air to assess for atrial septal defect. Left Ventricle Normal size and thickness. The estimated ejection fraction is 65 %. Stage 1 diastolic dysfunction. No regional wall motion abnormalities noted. Right Ventricle Normal size and thickness. The right ventricular wall motion is normal. Atria Normal atrial septum. Bubble contrast study negative for right to left interatrial shunt. Normal left atrium. No thrombus is detected in the left atrial appendage. Normal right atrium. Mitral Valve The mitral valve is structurally normal. No prolapse or stenosis seen. Trivial mitral valve insufficiency. Tricuspid Valve Normal tricuspid valve. Trivial tricuspid valve insufficiency. Unable to estimate RV systolic pressure due to insufficient tricuspid regurgitant envelope. Aortic Valve Trisinus/trileaflet aortic valve. Moderate diffuse aortic valve thickening. Mild focal aortic valve thickening. Moderate restriction of the aortic valve. Moderate aortic stenosis. Peak aortic valve gradient 24 mmHg. Mean aortic valve gradient 14 mmHg. Calculated aortic valve area (continuity equation) is 1.4-16 cm2. Pulmonic Valve Normal pulmonic valve. Doppler Measurements & Calculations MV E max joel: 58.0 cm/sec Ao V2 max: 250.7 cm/sec MV A max joel: 79.2 cm/sec Ao V2 mean: 163.7 cm/sec MV E/A: 0.73 Ao V2 VTI: 57.2 cm Interpretation Summary The study was technically limited. The estimated ejection fraction is 65 %. Stage 1 diastolic dysfunction. Bubble contrast study negative for right to left interatrial shunt. Trivial mitral valve insufficiency. Trivial tricuspid valve insufficiency. Moderate restriction of the aortic valve. Moderate aortic stenosis. Calculated aortic valve area (continuity equation) is 1.4-16 cm2. No thrombus is detected in the left atrial appendage. Ordering Physician: Ryan Bermudez Referring Physician: Tapan Cornelius Performed By: Radha Bruce RDCS
[2018-11-23 09:46] LABS: Prothrombin Time Fingerstick 12.1 SEC (11.9-14.4)
[2018-11-23 11:40] LABS: ACT Activated Clotting Time 158 sec (74-137)
--- NOTE | 2018-11-23 11:47 | CL.I_ITS ---
Patient Name: HANG KEENAN Study Date: 11/23/2018 Performing: Ryan Bermudez MD Ht: 66.92 inches 170 cm : 1945 Wt: 149.91 lbs 68 kg Age: 72 Gender: male BSA: 1.79 PROCEDURE(S) PERFORMED [id number] W OR WO PTCA, SINGLE CORONARY ARTERY [id number], EACH ADD'L CORONARY ART, SAME MAJOR CLINICAL PROFILE AND CO-MORBIDITIES Indications: Worsening Angina, New Onset Angina <= 2 months, Worsening Angina, Valvular Disease Heart Failure: None Stress/Imaging Stress Test w/SPECT MPI: Yes Result: Negative Stress Test with SPECT MPI: Negative Angina Classification Anginal Classification w/in 2 Weeks: CCS III CAD Presentations: Unstable angina. Other: Aortic stenosis Comorbidities/Risk Factors: Hypertension Dyslipidemia CONCLUSIONS Successful PTCA/JOSEFINA mid LAD with a 2.5 x 32 Promus Synergy, post dilated in proximal 2/3 with a 2.75 x 8 NC balloon, and flared at proximal stent with a 3.0 x 8 NC Balloon; 85%-->0%, no dissection. Successful PCI with PTCA to the balloon angioplasty only to ostium of DIAG#1 with a 2.0 x 12 balloon; 75%-->30%, no dissection. 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 Bermudez Restart lovenox and coumadin on 10/27/18. INR next week. Manual sheath removal as pt is too thin for Mynx closure. DESCRIPTION OF PROCEDURE The patient arrived to the procedure lab. The risks and benefits of the procedure as well as a full d escription of our services here and current unavailability of surgical backup were fully explained to the patient and/or their significant other prior to the catheterization. The Timeout was completed, verifying the correct patient and procedure. The patient's procedural site was prepped and draped in the usual fashion. Local anesthetic was given subcutaneously to right groin region with Lidocaine 2%. Using a modified Seldinger technique, arterial access was obtained via the right femoral artery, a 6 Fr sheath was inserted.. The images were reviewed and options discussed. A decision was then made to proceed with an Intervention, IVUS or other adjunct procedure. Arterial sheath was exchanged for a 6 Fr, 55cm Sheath. EBU 3.75 Guide catheter was inserted and engaged into the LCA. Angiogram performed pre balloon dilatation. BMW #1 Guide wire was advanced to t he LAD. BMW #2 Guide wire was inserted as a lillie wire into Diagonal branch emerge 2.0 x 12 Balloon c atheter was advanced across lesion in the LAD, mid. PTCA balloon inflated at 6 atms for 9 secs. PTCA balloon inflated at 6 atms for 11 secs. PTCA balloon inflated at 8 atms for 10 secs. PTCA balloon inf lated at 6 atms for 8 secs. PTCA balloon inflated at 8 atms for 11 secs. PTCA balloon inflated at 6 a tms for 6 secs. 2.5 x 32 Synergy Drug Eluting stent was advanced across the lesion in the LAD, mid. 2 .75 x 8 NC Emerge Balloon catheter was inserted post stent. Angiogram performed post stent deployment . 3.0 x 8 NC Emerge Balloon catheter was inserted post stent. PTCA balloon inflated at 12 atms for 10 secs. BMW #2 Guide wire was repositioned to the 1st Diagonal 2.0 x 12 Emerge Balloon catheter was advanced across lesion in the first diagonal, ostial. PTCA balloon inflated at 6 atms fo r 33 secs. The arterial sheath was pulled and manual compression applied until hemostasis is achieve d. INTERVENTION INFORMATION LESION SITE: LAD (Mid) Lesion Complexity: High/C, lesion at bifurcation: Yes, thrombus present: No, lesion length: 32 mm, cu lprit lesion: Yes Pre Stenosis: 85 % Pre intervention NATHALIE flow: 3 PROCEDURE: Drug Eluting Stent with pre and post dilatation Post Stenosis: 0 % Post intervention NATHALIE flow: 3 Lesion Devices: Medtronic 6 Fr EBU3.75 100cm Guide Catheter Lovelace .014 BMW [place] Straight 190cm Lovelace .014 BMW [place] Straight 190cm Hubert Sci EMERGE MR 2.00x12 BALLOON Hubert Sci Synergy MR JOSEFINA 2.50x32 Hubert Sci NC EMERGE MR 2.75x08 BALLOON Hubert Sci NC EMERGE MR 3.00x08 BALLOON LESION SITE: 1st Diagonal (Ostial) Lesion Complexity: Non-High/Non-C, lesion at bifurcation: Yes, thrombus present: No, lesion length: 8 mm, culprit lesion: No Pre Stenosis: 75 % Pre intervention NATHALIE flow: 3 PROCEDURE: Balloon Angioplasty Post Stenosis: 30 % Post intervention NATHALIE flow: 3 Lesion Devices: Medtronic 6 Fr EBU3.75 100cm Guide Catheter Lovelace .014 BMW [place] Straight 190cm Hubert Sci EMERGE MR 2.00x12 BALLOON COMPLICATIONS No Complications PROCEDURE MEDICATIONS Oxygen: 2 L/min via nasal cannula Heparin 6000 unit(s) IV 11/23/2018 10:49:00 Nitro 200 mcg IC 11/23/2018 10:52:25 Nitro 200 mcg IC 11/23/2018 10:52:25 Nitro 200 mcg IC 11/23/2018 10:59:08 Nitro 200 mcg IC 11/23/2018 11:08:11 Nitro 200 mcg IC 11/23/2018 11:13:41 SUMMARY OF HEMODYNAMIC DATA Time AIR REST ECG 10:39:37 AO 161/88 (120) SA 10:49:49 AO 152/82 (110) 10:50:27 Signed By Ryan Bermudez MD On 11/23/2018 11:46:57 Ryan Bermudez MD
--- NOTE | 2018-11-23 12:50 | EKG12_ITS ---
Test Reason : AM EKG Blood Pressure : / mmHG Vent. Rate : 056 BPM Atrial Rate : 056 BPM P-R Int : 190 ms QRS Dur : 112 ms QT Int : 452 ms P-R-T Axes : 020 -22 -08 degrees QTc Int : 436 ms Sinus bradycardia Nonspecific ST/T Wave Abnormality Confirmed by MARGIE SANCHEZ, FREEMAN ([id number]), book editor OMAR BAEZ ([id number]) on 11/29/2018 2:02:47 PM Referred By: Ryan Bermudez Confirmed By:FREEMAN HANSON MD
[2018-11-23] MEDS: 0.9% Normal Saline 1,000 ML 150 ML IV (13:33)
[2018-11-23] MEDS: amLODIPine 5 MG Tablet PO ×2 (13:36→21:13)
--- NOTE | 2018-11-23 14:05 | CRPHASE1 ---
Patient Communication PHII Cardiac Rehab Discussed with Patient:: Yes Guide to Cardiac Rehab Given to Patient:: Yes Cardiac Rehab Facility Choice List Given to Patient:: Yes Choice Program [facility] PHII:: Communication Given to CR, Refer to [facility] Refer Phase II Cardiac Rehab:: Yes Sessions:: 36 sessions - 3 days/wk, 12 weeks Risk Factors/Lifestyle Smoking Status: Never smoker Hx Hypertension: Yes Hx Diabetes Mellitus Type 1: No Hx Diabetes Mellitus Type 2: No Hx Metabolic Disorders: No Hx Dyslipidemia: Yes Hx Obesity: No Height: 5 ft 5 in - BMI 26.2 Stress: Work-related, Home/Family Risk Factor for Sedentary Lifestyle: Moderate Risk Family History: Family History (Last Reviewed 10/28/18 @ 10:58 by Penny Hercules) Unknown No problems noted. Phase I Education Given On:: [place], Nutrition, Antiplatelet medication Knowledge of Condition:: Yes Learning Preferences: Verbal, Written - AT BEDSIDE Hospital Course Presenting Symptoms:: CHEST PAINS X 2 WEEKS Medical/Surgical History [place]:: No CAD:: No COPD:: No SERGO:: Yes Diabetes:: No Hypertension:: Yes Dyslipidemia:: Yes Arrhythmias:: Yes - HX PAROXSYMAL ATRIAL FIB PVD:: Yes - HX BILATERAL CAROTID DISSECTION 2015 Renal:: Yes - HX KIDNEY STONES Thyroid:: Yes - HYPOTHYROID CABG: No Discharge/Home/Social Eval Discharge Disposition: Home Marital Status: Cardiac Rehabilitation Info Cardiac Rehabilitation Program Information: Cardiac Rehabilitation is important for patients like you who are recovering from a heart problem. Cardiac rehabilitation programs are recognized as integral to the continued care of the patient with coronary heart disease. The cardiac rehabilitation program is designed to optimize a patient's physical, psychological, and social functioning. Health care services manager work in cardiac rehabilitation programs and assist you with getting the treatments you need to get stronger and healthier - like exercise, healthy eating habits, and medications. Cardiac rehabilitation has been show to help people with heart problems live longer and have better life enjoyment than people who do not go to cardiac rehabilitation. Please contact the Cardiac Rehabilitation Program at [facility] at in two weeks if you have not heard from them.
--- NOTE | 2018-11-23 14:11 | CRPH1.INST_ITS ---
General Education CAD and cardiac anatomy and function:: Patient communicates acknowledgment, Family communicates acknowledgment Explanation of diagnoses and procedures:: Patient communicates acknowledgment, Family communicates acknowledgment Sign/Symptoms of [place]:: Patient communicates acknowledgment, Family communicates acknowledgment Antiplatelet therapy: Patient communicates acknowledgment, Family communicates acknowledgment Proper use of NTG-SL: Not instructed Emergency procedures and activation of EMS: Patient communicates acknowledgment, Family communicates acknowledgment Compliance of all prescribed medications: Patient communicates acknowledgment, Family communicates acknowledgment - 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 Smoking Patient Nicotine/Smoking Risk Factors Are:: Never smoked Dyslipidemia Patient Dyslipidemia Risk Factors Are:: Total Cholesterol, Triglycerides, HDL, LDL Recommendations Include:: Lipid profile provided, Reviewed NCEP/ATP guidelines, Therapeutic Lifestyle Change dietary guidelines Dyslipidemia Response Code:: Patient communicates acknowledgment, Family communicates acknowledgment Overweight/Obesity Patient Overweight/Obesity Risk Factors Are:: BMI Normal [24-29 & > 65 years old ] Hypertension Recommendations Include:: Maintain BP <130/85, DASH dietary guidelines, Decrease/maintain normal body weight, Moderation of ETOH Hypertension:: Patient communicates acknowledgment, Family communicates acknowledgment Heart Disease Recommendations Include:: Educated family members of their risk, Educated family members of importance of prevention of heart disease Heart Disease Response Code:: Patient communicates acknowledgment, Family communicates acknowledgment Diabetes Patient Diabetes Risk Factors Are:: No documented hx of diabetes Metabolic Syndrome Recommendations Include:: Does not meet criteria Sedentary Patient Sedentary Risk Factors Are:: Lack of regular exercise Sedentary Response Code:: Patient communicates acknowledgment, Family communicates acknowledgment Stress Recommendations Include:: Identification of stressors, and assessment of coping skills, Stress management techniques Stress Response Code:: Patient communicates acknowledgment, Family communicates acknowledgment
[2018-11-23] MEDS: Carvedilol 6.25 MG Tablet PO (21:12)
[2018-11-23] MEDS: Rosuvastatin Calcium 5 MG Tablet PO (21:13)
[2018-11-23] MEDS: Flecainide 100 MG Tablet 50 MG PO (21:13)
[2018-11-24] VITALS (11 sets, daily range): BP systolic 97–137; BP diastolic 56–83; PULSE 52–60; RESP 13–19; TEMP 36.1–36.4; O2SAT 92–98
[2018-11-24 03:26] LABS: Hematocrit 41.3 % (40-54); Hemoglobin 13.9 g/dl (13.0-16.5); Mean Corp Hgb Conc 33.7 g/gl (32-36); Mean Corpuscular Hgb 30.7 pg (27.0-32.0); Mean Corpuscular Volume 91.2 fL (80-94); Mean Platelet Vol. 8.9 fl (6.2-12.0); Platelet Count 243 K/mm3 (150-450); RBC Distribution Width CV 15.1 % (11.6-14.6); RBC Distribution Width SD 49.9 fl (35.1-43.9); Red Blood Count 4.53 M/mm3 (4.6-6.2)
[2018-11-24 03:31] LABS: Scan Indicated on CBC? Y/N NO
[2018-11-24 03:41] LABS: Anion Gap 7 (5-15); BUN 18 mg/dL (7-18); BUN/Creat Ratio 21.5 RATIO (10-20); Calcium,Total 8.5 mg/dL (8.5-10.1); Chloride 108 mmol/L (98-107); Creatinine, Serum 0.84 mg/dL (0.70-1.30); EST Glomerular Filtration Rate 95 mL/min (>60); Est Glom Filt Rate - Afr Amer 115 mL/min (>60); Estimated Creatinine Clearance 67.11 ml/min; Glucose 96 mg/dL (74-106); Sodium Level 141 mmol/L (136-145)
[2018-11-24] MEDS: Levothyroxine 75 MCG Tablet PO (05:01)
--- NOTE | 2018-11-24 07:43 | PCM.PN.CARD ---
Subjectve: Patient feeling very well this morning. No 24-hour events. Telemetry showed normal sinus rhythm, otherwise negative. EKG showed sinus bradycardia, no acute changes. Right groin is clean/dry/intact without evidence of thrills, bruits or hematoma. Hemoglobin and creatinine within nominal limits. Objective: Vital Signs Temp Pulse Resp BP Pulse Ox 96.9 F L 60 18 116/80 95 11/24/18 02:00 11/24/18 06:00 11/24/18 06:00 11/24/18 06:00 11/24/18 06:00 Oxygen Flow Rate (L/min) 2 Oxygen Delivery Method Room Air Weight: 157 lb 10.088 oz Body Mass Index (BMI) 26.2 Finger Stick Blood Glucose 89 Intake and Output for Last 24 Hours 11/22/18 11/23/18 11/24/18 23:59 23:59 23:59 Intake Total 1006 / 1535 1009 / 1009 Output Total 850 / 1125 1000 / 1000 Balance 156 / 410 9 / 9 General: Awake, Alert, Oriented x 3 HEENT: PERRL, EOMI, Sclera Non Icteric Neck: Supple, Good ROM, No Lymph Node Enlargement Lungs: Clear to auscultation Cardiovascular: Regular Rhythm, Normal S1, Normal S2, No Murmurs, No Rubs, No Gallops Vascular: No Carotid Bruits, Normal Femoral Pulses, Normal Radial Pulses, Normal Dorsalis Pedal Pulse, Normal Posterior Tibial Pulses Abdomen: Bowel Sounds Present, Soft, Non Tender, No HSM, No Organomegaly Extremities: No Cyanosis, No Clubbing, No edema Neurological: No Focal Motor or Sensory Deficit 11/23/18 09:37: INR 1.00 11/24/18 03:18: Sodium 141, Potassium 4.0, Chloride 108 H, Carbon Dioxide 26.0, Anion Gap 7, BUN 18, Creatinine 0.84, Est GFR (MDRD) Af Amer 115, Est GFR (MDRD) Non-Af 95, BUN/Creatinine Ratio 21.5 H, Glucose 96, Calcium 8.5 11/24/18 03:18: WBC 6.0, RBC 4.53 L, Hgb 13.9, Hct 41.3, MCV 91.2, MCH 30.7, MCHC 33.7, RDW 15.1 H, RDW Differential 49.9 H, Plt Count 243, MPV 8.9 Rhythm: EKG: ECHO: Stress Test: Cardiac Cath: PCI: CT Surgery: Holter monitor: EPS: PPM: CXR: Chest CT Scan: Medical Necessity - Tobacco Use Smoking Status: Never smoker Assessment/Plan 1. Unstable angina: Patient has had unstable angina for the past several weeks, but also was found to have aortic stenosis concerning for its severity. Patient underwent transesophageal echocardiogram on 11/23/2018 which showed at best moderate aortic stenosis. From there he underwent elective angioplasty and stenting of his mid LAD with an excellent result. In addition he underwent PTCA only angioplasty of his diagonal ostium with an excellent result. Overnight the patient has felt much better, and denies any chest pain symptoms. He will continue baby aspirin for life and Plavix for at least one years time. We will hold off on his Lovenox and Coumadin until 11/26/2018 at which time he will restart both for his history of CVA, bilateral carotid dissection, possible paroxysmal atrial fibrillation. I have explained the medication sequence of the Plavix, aspirin, Coumadin and Lovenox to his Mrs. Schaeffer who I believe is a nurse, and she has agreed to assist with his Lovenox as she had prior to his angioplasty. 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 I advised him not to do any tractor work or walk through the [place] for at least 1 week's time until his groin is healed and he has been seen by our office staff. Patient is voiced understanding and agrees to comply. 2. Aortic stenosis: The patient has had at least most moderate aortic stenosis at this time and no sentinel events of presyncope or syncope. I do not believe he requires aortic valve replacement at this time. Aortic valve replacement in this gentleman would be somewhat problematic given his history of bilateral carotid artery dissection. I am hopeful that his angioplasty and stenting of his LAD will relieve his chest pain symptoms. 3. Hyperlipidemia: Continue rosuvastatin. Repeat lipid profile after cardiac rehab is completed. 4. Patient may be discharged home today and follow-up with Dr. Bermudez going forward. Code Visit Inpatient E&M: 45254 Subs Hosp L2
--- NOTE | 2018-11-24 08:04 | PCM.PN.BLA ---
Progress Note Patient is not on a betablocker despite CAD d/t bradycardia.
--- NOTE | 2018-11-24 08:05 | PCM.DC.CCA ---
Discharge Diet: Low fat/ Low Cholesterol Discharge Activity: Return to Normal Activity May shower in (days): 1 - No tub baths for 5 days May resume sexual activity in: 1-2 weeks Lifting Restrictions: no lifting greater than 10 pounds for 3 days Call your doctor if your incision/area has: Continuous Slow Oozing, Sudden Increased Bleeding, Increased Pain/ Swelling, Increased Redness, Foul Smelling Discharge, Swelling at the incision site Call your doctor if you observe: Fever of 101 or Higher, Shortness of breath, Chest pain Remove Dressing in (days):: 1 Cleanse incision/area with: Soap & Water Additional Instructions: You will continue with Aspirin and Plavix therapy. You will remain on Plavix therapy for at least one year. If anyone asks you to stop your Plavix, please call the [facility]. Please take both Lovenox injections and Coumadin on Thursday (November 27) and Thursday (November 28). Please have your INR checked on Thursday (November 29). We will then be able to decide if can stop injections based on INR level. You will have your right groin evaluated at the [facility] on 12/01/2018 at 9:45. If this looks well, you will be able to drive. You are scheduled for a hospital follow-up with Jeri Cruz, Physician [facility], on December 21, 2018 at 3:00 PM. Allergies/Adverse Reactions: Allergies cefuroxime Allergy (Intermediate, Verified 10/25/18 09:04) Rash rosuvastatin [From Crestor] Adverse Reaction (Severe, Verified 10/25/18 09:04) severe myalgias lisinopril Adverse Reaction (Intermediate, Verified 10/25/18 09:04) didn't control bp well, labile cephalexin Adverse Reaction (Verified 10/25/18 09:04) Pain in joints levofloxacin [From Levaquin] Adverse Reaction (Verified 10/25/18 09:04) Unknown GENERALIZED ACHINESS Medications to take at Discharge Levothyroxine [Synthroid] 75 mcg PO DAILY 01/07/17 Multivitamin,Therapeutic [Thera] 1 ea PO DAILY 01/07/17 Ubidecarenone [Q-Sorb Co Q-10] 100 mg PO BID 08/13/17 Carvedilol [Coreg (Beta Jarret)] 6.25 mg PO BID #60 tab 08/14/17 flecainide 50 mg tablet 50 mg PO Q12H 04/05/18 amlodipine 5 mg tablet 5 mg PO BID #180 tab 10/28/18 aspirin 81 mg tablet,delayed release 81 mg PO DAILY #30 tab 10/28/18 dutasteride 0.5 mg capsule 0.5 mg PO DAILY 10/28/18 lysine 500 mg tablet 500 mg PO DAILY 10/28/18 omega-3 fatty acids 1,000 mg capsule 1,000 mg PO DAILY 10/28/18 rosuvastatin 5 mg tablet 5 mg PO DAILY 10/28/18 clopidogrel 75 mg tablet 75 mg PO DAILY #30 tab 11/12/18 enoxaparin 60 mg/0.6 mL subcutaneous syringe 60 mg SC Q12H #2.4 ml 11/24/18 Orders to be completed after discharge: Phase II, Outpatient Cardiac Rehab Location: None Selected Primary Care Physician: Tapan Cornelius MD [Primary Care Provider] - Test Results: Test results from this visit will be discussed in further detail at your follow-up appointment, if applicable. Please Follow Up With: Jeri Cruz - Physician [facility] When: December 21, 2018 at 3:00 PM Please Follow Up With: [facility] Nurse - Groin Check When: December 01, 2018 at 9:45 AM Proposed Discharge Date: 11/24/18 Cardiac Rehabilitation Info Cardiac Rehabilitation Program Information: Cardiac Rehabilitation is important for patients like you who are recovering from a heart problem. Cardiac rehabilitation programs are recognized as integral to the continued care of the patient with coronary heart disease. The cardiac rehabilitation program is designed to optimize a patient's physical, psychological, and social functioning. Health primary care physician work in cardiac rehabilitation programs and assist you with getting the treatments you need to get stronger and healthier - like exercise, healthy eating habits, and medications. Cardiac rehabilitation has been show to help people with heart problems live longer and have better life enjoyment than people who do not go to cardiac rehabilitation. Please contact the Cardiac Rehabilitation Program at [facility] at in two weeks if you have not heard from them.
[2018-11-24] MEDS: Multivitamins,Therapeutic Tablet 1 TABLET PO (08:07)
[2018-11-24] MEDS: Aspirin E.C. 81 MG Tablet PO (08:07)
[2018-11-24] MEDS: amLODIPine 5 MG Tablet PO (08:08)
[2018-11-24] MEDS: Omega-3 Acid Ethyl Esters 1 GM Capsule PO (08:08)
[2018-11-24] MEDS: Clopidogrel Bisulfate 75 MG Tablet PO (08:08)
[2018-11-24] MEDS: Carvedilol 6.25 MG Tablet PO (08:08)
[2018-11-24] MEDS: Flecainide 100 MG Tablet 50 MG PO (08:09)
[2018-11-24] MEDS: Finasteride 5 MG Tablet PO (08:09)
== END 2018-11-24 10:15 | disposition home or self-care (01) ==
LOC: CVS 09:30 → ICU 11-24 07:16
PROVIDERS: Family Provider Family Medicine; PCP Family Medicine; Referring Provider Internal Medicine Cardiovascular Disease; Visit Provider Internal Medicine Cardiovascular Disease
DX: I35.0 Nonrheumatic aortic (valve) stenosis (principal); I34.0 Nonrheumatic mitral (valve) insufficiency; I25.110 Atherosclerotic heart disease of native coronary artery with unstable angina pectoris; Z95.5 Presence of coronary angioplasty implant and graft; E78.5 Hyperlipidemia, unspecified; R07.89 Other chest pain; I48.0 Paroxysmal atrial fibrillation; I77.71 Dissection of carotid artery; I10 Essential (primary) hypertension; E03.9 Hypothyroidism, unspecified; G47.33 Obstructive sleep apnea (adult) (pediatric); Z79.02 Long term (current) use of antithrombotics/antiplatelets; Z79.82 Long term (current) use of aspirin; Z79.899 Other long term (current) drug therapy; Z86.73 Personal history of transient ischemic attack (TIA), and cerebral infarction without residual deficits
CPT/HCPCS: 36416; 80048; 85027; 85347; 85610; 92921; 92928; 93005; 93312; 93320; 93325; J7030; J7040; A4216; C1725; C1769; C1874; C1887; C1894; C9600

== ENCOUNTER → 2018-12-01 11:18 | Outpatient (CLI) | payer MEDICARE, OTHER, SELFPAY ==
[2017-05-20 14:31] VITALS: BMI 25.0
[2018-11-23 12:20] VITALS: BMI 26.2
--- NOTE | 2018-12-01 11:22 | ADUL_ITS ---
Reason For Study: R/O Pseudoaneurysm Right Velocities Common Iliac Artery, dist = 104.6 cm./sec. Common Femoral Artery, mid = 89.6 cm./sec. Supf Femoral Artery, prox = 70.3 cm./sec. CFV & SFV are compressible, spontaneous, phasic, competent and demonstrates normal augmentation. No evidence of pseudoaneurysm noted. Interpretation Summary Normal flow right common femoral artery Normal flow right common femoral vein No evidence for pseudoaneurysm or arteriovenous fistula Ordering Physician: Ryan Bermudez Referring Physician: Tapan Cornelius Performed By: Abbie Rboert, DELMA, RVT
== END ==
PROVIDERS: Family Provider Family Medicine; PCP Family Medicine; Referring Provider Internal Medicine Cardiovascular Disease; Visit Provider Internal Medicine Cardiovascular Disease
DX: S75.001A Unspecified injury of femoral artery, right leg, initial encounter (principal); R09.89 Other specified symptoms and signs involving the circulatory and respiratory systems
CPT/HCPCS: 93926

== ENCOUNTER → 2018-12-03 08:36 | Outpatient (CLI) | payer MEDICARE, OTHER, SELFPAY ==
[2017-05-20 14:31] VITALS: BMI 25.0
[2018-12-01 10:37] VITALS: BMI 26.2
[2018-12-03 12:32] LABS: Prothrombin Time (Protime)PT. 22.6 SECONDS (11.7-14.9)
== END ==
PROVIDERS: Family Provider Family Medicine; PCP Family Medicine; Visit Provider Internal Medicine Cardiovascular Disease
DX: I48.0 Paroxysmal atrial fibrillation (principal)
CPT/HCPCS: 36415; 85610

== ENCOUNTER → 2018-12-07 08:58 | Outpatient (CLI) | payer MEDICARE, OTHER, SELFPAY ==
[2017-05-20 14:31] VITALS: BMI 25.0
[2018-11-23 12:20] VITALS: BMI 26.2
[2018-12-01 10:37] VITALS: BMI 26.2
--- NOTE | 2018-12-07 09:44 | PCM.CR.ITP ---
General Information - General Information Admitting Diagnosis: PCI with stent - Education/Goals Barriers to Learning: None Individual Counseling: Initial Assessment: Abnormal Cholesterol Levels, High Blood Pressure, Hypertension, Stress, Family History of Heart Disease (under 65 years) Cardiac Rehabilitation Goals: 1. Maintain the individual as the primary focus of care. 2. To improve the patient's quality of life. 3. Identification of cardiac risk factors and provide cardiac risk factor management. 4. Enhance the psychosocial status of the patient. 5. Reconditioning enough to allow the patient to resume customary activities. 6. Control symptoms of cardiac disease Scale for measuring improvement of personal goals: Enter appropriate number in Comments. 2 = Unchanged. 3 = Slightly Better. 4 = Moderate Improvement. 5 = Met my Goal Personal Goals: Initial Assessment: Improve management of stress and emotions, Get back to work, or to resume activities faster, Improve knowledge of cardiac disease Exercise - Initial Assessment - Visit Date of Eval: 12/07/18 - Stages of Change Stages of Change:: Action - Physician Prescribed Exercise Modalities: Biodyne, Rower, Airdyne, NuStep, SciFit Frequency (days/week): 3x/week for 12 weeks [36 sessions] Target Heart Rate:: 95-124 - Hypertension Do any of the following apply?: Yes Resting Blood Pressure:: 118/82 - Intervention Home Exercise/Activity Goal:: Moderate Exercise 30 min/day x 5 days/wk - Education Goals:: Warm-up, RPE MAYA Scale, S/S, Safe Exercise, Self-Monitoring - Exercise Program Goals Exercise Program Goals: Aerobic Activity >30 min Nutrition - Initial Assessment - Program Goals Nutrition Program Goals: LDL <70. Total Cholesterol <200. HDL >45. Triglycerides <150. HgbA1C <7%. BMI <25 - Visit Date of Assessment:: 12/07/18 - Stages of Change Stages of Change:: Action - Lipids Total Cholesterol (mg/dL) Goal = less than 200 mg/dL: 228 HDL Cholesterol (mg/dL) Goal = less than 45 mg/dL: 71 LDL Cholesterol (mg/dL) Goal = less than 70 mg/dL: 133 - Diabetes Diabetes:: No - Weight Management Height: 5 ft 5 in Weight:: 158 lb - Intervention Referral to dietitian:: No Referral to Diabetic Clinic:: No Will attend diet classes:: Yes - Education Gave educational materials for:: Signs & symptoms of hypoglycemia, Signs & symptoms of hyperglycemia, Relate diabetes to coronary artery disease, Healthy eating Tobacco - Initial Assessment - Program Goals Tobacco Program Goals: Complete smoking cessation. Attend education classes. Improve Knowledge Test score - Stage of Change Stages of Change:: Action - Learning Barriers Learning Barriers: Ready to Learn - Family Support Do you have family support?: Yes - Tobacco Use Tobacco Use: Non-smoker - Intervention Smoking Cessation Referral:: No - Education Attended class for:: Treating Heart Disease, How The Heart Works, What it means to have Heart Disease, How Coronary Artery Disease is Diagnosed, Heart Procedures, What Heart Medications Do, Risk Factors & Modifications, Living an Active Life, Nutrition, Emotions & Heart Disease, Stress Management & Relaxation, Sleep Disorders & Heart Disease Psychosocial - Initial Assess - Target Goals Target Goals: Assess presence or absence of depression. Using a valid screening tool, maximizes coping skills. Positive support system - Stages of Change Stages of Change:: Action - Psychosocial Test Tool Used:: HANDS Depression Questionnaire - Intervention PS - Interventions: Yes Attend Stress Management Classes, Yes Uses Stress Management Skills, No Referral to Mental Health, No Referral to [facility] Case Management, No Referral to Physician - Education Gave educational materials for:: Coping techniques, Signs & symptoms of depression, Stress management, Relaxation techniques - Assistive Devices Assistive Devices:: None, Cane Fall Risk Assessed:: No Patient Health Questionnaire Initial Assessment 1. Little interest or pleasure in doing things: Not at all - 2. Feeling down, depressed, or hopeless: Not at all 3. Trouble falling or staying asleep, or sleeping too much: Several days 4. Feeling tired or having little energy: Several days 5. Poor appetite or overeating: Not at all 6. Feeling bad about yourself -- or that you are a failure or have let yourself or your family down: Several days 7. Trouble concentrating on things, such as reading the newspaper or watching television: Not at all 8. Moving or speaking so slowly that other people could have noticed. Or the opposite - being so fidgety or restless that you have been moving around a lot more than usual: Not at all 9. Thoughts that you would be better off , or of hurting yourself in some way: Not at all How difficult have these problems made it for you to do your work, take care of things at home, or get along with other people?: Somewhat difficult Total Score: 3 DAMIAN-Q SV Test - Statements CAD is a disease of the arteries in the heart: False Examples of risk factors for heart disease: True Eating more meat and dairy products: False Anti-platelet medications such as aspirin are important: True The only effective way to manage stress: True An exercise warm-up slowly increases heart rate: I Don't Know Prepared, processed foods usually have high sodium: True Depression is common after a heart attack: I Don't Know The statin medications lower cholesterol: True To control blood pressure, lower the amount of sodium: True If someone gets chest discomfort during walking: False Transfats are partially hydrogenated vegetable oils: I Don't Know Sleep apnea that is not treated increases the risk: I Don't Know To control cholesterol, one should become a vegetarian: False Someone knows if he/she is exercising at the right level: I Don't Know Diabetes cannot be prevented with exercise & health eating: False Stress is a large risk for heart attack: True A diet that can help lower blood pressure is rich in: I Don't Know Self-Efficacy Initial Assessment We would like to know how confident you are in doing certain activities. Please select your confidence level for:: Select your confidence level for the following using the scale 1-10 where 1 is not at all confident and 10 is totally confident. Your score is the average of all 6 responses. Fatigue: How confident are you that you can keep the fatigue caused by your disease from interfering with the things you want to do? Select Number: 10 Physical Discomfort or Pain: How confident are you that you can keep the physical discomfort or pain of your disease from interfering with the things you want to do? Select Number: 10 Emotional Distress: How confident are you that you can keep the emotional distress caused by your disease from interfering with the things you want to do? Select Number: 10 Other Symptoms or Health Problems: How confident are you that you can keep other symptoms or health problems from interfering with the things you want to do? Select Number: 10 Different Tasks and Activities: How confident are you that you can do the different tasks and activities needed to manage your health condition so as to reduce your need to see a doctor? Select Number: 10 Medication: How confident are you that you can do things other than just taking medication to reduce how much your illness affects your everyday life? Select Number: 10 Total Score:: 10 Nutrition Survey - Nutrition Survey Instructions Scoring Instructions: Scoring is as follows: Yes = 1 points. No = 0 point. Patient score that is >/=12 is considered to be at potential nutritional risk and could benefit from a referral to a registered dietitian. - Nutrition Survey Initial Have you lost >10 lbs over the past 2 months without trying?: No Are you following a special diet at home for diabetes, low fat, or low salt?: Yes Are you interested in meeting with a dietitian for help understanding your diet?: Yes Do you eat less than 3 meals a day?: No Do you eat fatty meats (gay, sausage, ribs, etc), fried foods, desserts, large amounts of salad dressings, margarine, butter, or cheese most days?: No Do you have food allergies? [Enter types in comment field]: No Do you eat in restaurants more than 3 times a week?: No Do you season food with salt, seasoning salt, or garlic salt?: No Do you used canned, boxed, frozen meals, or soups, seasoning packets?: Yes Total Score:: 3
--- NOTE | 2018-12-07 09:48 | PCM.CR.HP2 ---
CR - History & Physical - General Arrival date:: 12/07/18 Arrival time:: 09:00 Date of Referral:: 11/23/18 Date of CR Evaluation:: 12/07/18 Referring Physician: DR SPENCER Primary Diagnosis: PCI WITH STENT - History of Present Cardiac Event Onset Date: Enter Onset Date of cardiac illnesses in Comment field below Current stable Angina Pectoris:: No Coronary Artery Bypass Graft:: No Heart valve replacement or repair:: No PTCA or coronary stenting:: Yes Heart or Heart-Lung Transplant:: No Heart Failure EF <35%:: No Type of Symptoms:: DISCOMFORT IN CHEST Were there any complications?: NO - Medications Home Medications: Ambulatory Orders Medication Instructions Recorded Levothyroxine [Synthroid] 75 mcg PO DAILY 01/07/17 Multivitamin,Therapeutic [Thera] 1 ea PO DAILY 01/07/17 Ubidecarenone [Q-Sorb Co Q-10] 100 mg PO BID 08/13/17 Carvedilol [Coreg (Beta Jarret)] 6.25 mg PO BID #60 tab 08/14/17 flecainide 50 mg tablet 50 mg PO Q12H 04/05/18 amlodipine 5 mg tablet 5 mg PO BID #180 tab 10/28/18 aspirin 81 mg tablet,delayed 81 mg PO DAILY #30 tab 10/28/18 release dutasteride 0.5 mg capsule 0.5 mg PO DAILY 10/28/18 lysine 500 mg tablet 500 mg PO DAILY 10/28/18 omega-3 fatty acids 1,000 mg 1,000 mg PO DAILY 10/28/18 capsule rosuvastatin 5 mg tablet 5 mg PO DAILY 10/28/18 clopidogrel 75 mg tablet 75 mg PO DAILY #30 tab 11/12/18 enoxaparin 60 mg/0.6 mL 60 mg SC Q12H #2.4 ml 11/24/18 subcutaneous syringe warfarin 7.5 mg tablet 7.5 mg PO DAILY #1 tab 12/01/18 - Allergies Allergies/Adverse Reactions: Allergies cefuroxime Allergy (Intermediate, Verified 10/25/18 09:04) Rash rosuvastatin [From Crestor] Adverse Reaction (Severe, Verified 10/25/18 09:04) severe myalgias lisinopril Adverse Reaction (Intermediate, Verified 10/25/18 09:04) didn't control bp well, labile cephalexin Adverse Reaction (Verified 10/25/18 09:04) Pain in joints levofloxacin [From Levaquin] Adverse Reaction (Verified 10/25/18 09:04) Unknown GENERALIZED ACHINESS - Sleep Disorder Evaluation Hx of Sleep Apnea: No Do you snore loudly (louder than talking or can be heard through closed doors)?: No Do you often feel tired/ fatigued/ sleepy during daytime?: No Has anyone observed you stop breathing during sleep?: No History of Hypertension (for STOP score): Yes STOP Results: Negative Advanced Directives - Advanced Directives Power of Metal Gauge Maker: Yes Living Will: Yes Advance Directives Information Provided: Yes Advance Directives on File: No - PT AND ENCOURAGE TO BRING COPIES OF THESE TO [facility] MEDICAL RECORDS DEPT. DNR Order?:: No Past Medical History - Past Medical Illness Medical History: Past Medical History (Last Updated 11/23/18 @ 17:15 by Penny Hercules) Atherosclerotic heart disease of [place] coronary artery without angina pectoris (Chronic) I25.10 Successful PTCA/JOSEFINA mid LAD with a 2.5 x 32 Promus Synergy, post dilated in proximal 2/3 with a 2.75 x 8 NC balloon, and flared at proximal stent with a 3.0 x 8 NC Balloon; 85%-->0%, no dissection. Successful PCI with PTCA to the balloon angioplasty only to ostium of DIAG#1 with a 2.0 x 12 balloon; 75%-->30%, no dissection. Chest tightness (Acute) R07.89 Hematuria (Acute) R31.9 Hearing loss of left ear (Chronic) H91.92 Since childhood Nonrheumatic mitral valve regurgitation (Chronic) I34.0 Mild 1+ per echo 06/15/17 @ [facility] Nonrheumatic aortic (valve) stenosis (Chronic) I35.0 Moderately severe per echo 06/15/[address] 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 - Past Surgical History Surgical History: Past Surgical History (Last Updated 11/23/18 @ 17:15 by Penny Hercules) Stented coronary artery (Chronic) Onset Date: 11/23/18 Z95.5 Successful PTCA/JOSEFINA mid LAD with a 2.5 x 32 Promus Synergy, post dilated in proximal 2/3 with a 2.75 x 8 NC balloon, and flared at proximal stent with a 3.0 x 8 NC Balloon; 85%-->0%, no dissection. Successful PCI with PTCA to the balloon angioplasty only to ostium of DIAG#1 with a 2.0 x 12 balloon; 75%-->30%, no dissection. H/O right and left heart catheterization (Chronic) Onset Date: 11/12/18 Z98.890 Normal LV size, wall motion,and systolic function; Perserved Left Ventricular systolic function with normal EDP; LVEF: by LV gram 65 %; Single vessel CAD of the mid LAD; Non obstructive coronary arteries. Aortic Valve Stenosis- Mild; Right heart pressures - Normal; Aortic Valve Insufficiency Mild RECOMMENDATIONS: Staged percutaneous intervention vs. Surgical Intervention; DEVEN in 1-2 week to eval for AVR vs medical management followed by PCI to LAD. Restart lovenox on 11/14/2108. Start plavix 75mg po daily. Manual sheath removal. History of thymectomy (Chronic) Onset Date: 04/23/17 Z90.89 Done @ [facility] per Dr. Ryan Quintanilla for anterior mediastinal mass, malignant Surgical History: appendectomy, herniorrhaphy - Right inguinal, total knee arthroplasty - He had a right total knee arthroplasty 2 years ago and had a left total knee arthroplasty 6 weeks ago., TURP - He is actually had 3 surgeries on his prostate., - - Thymectomy - Family History Summary Family History: Family History (Last Reviewed 10/28/18 @ 10:58 by Penny Hercules) Unknown No problems noted. Social History - Smoking History Smoking Status: Never smoker - Alcohol Use Alcohol Usage: No - Substance Abuse Hx Substance Use: No - Occupation Occupation (List type of work in comments):: Employed - [employer] Hours worked per day:: 12 - Hobbies, Recreation, Social Activities Hobbies: Other - [employer] Recreational Activities: I am able to engage in most, but not all activities Social Environment - Status Marital Status: - Current Living Arrangements Living Environment:: Spouse - Children How many children do you have?: 5 Do any of your children live nearby?: Yes - Safety Do you feel safe in your surroundings?: Yes - Assistance Do you need any assistance at home?: NONE Review of Systems - Review of Systems Hints: Right click = Denies (Slash). Left click = Reports ([place]) Review of Present Symptoms: Reports: Appetite - Normal, Sleep - Normal. Denies: Shortness of Breath at Rest, Shortness of Breath with Exertion, PVD, Operative Discomfort, Angina, Wound Healing, Dizziness/Lightheadedness, Fatigue, Heart Arrhythmia/Irregularities, Appetite - Special Diet - Pain Is Patient Pain Free?: Yes Risk Factor Assessment - Chief Complaint Chief Complaint: PCI WITH STENT - Vital Signs Temperature: 98.6 F Respiratory Rate: 16 Pulse Ox: 96 Blood Pressure: 118/82 Nailbeds:: PINK - Pulse Pulse Rate: 58 Pulse Rhythm: Regular - Hypertension How long have you been treated?: 4-5 YEARS On medication(s)?: YES Blood Pressure Sitting - Left Arm: 118/82 - Stress Stress: Work-related, Home/Family - ADULT CHILDREN - Blood Cholesterol/Lipids Total Cholesterol (mg/dL) Goal = less than 200 mg/dL: 228 HDL Cholesterol (mg/dL) Goal = less than 40 mg/dL: 71 LDL Cholesterol (mg/dL) Goal = less than 70 mg/dL: 133 - Diabetes Nutrition Referral for Diabetes: No - Obesity Height: 5 ft 5 in Weight:: 158 lb Weight in Pounds: 158.0 lbs Weight Source: Estimated by Patient Body Mass Index (BMI): 26.2 Nutritional Referral for Obesity: No - Physical Inactivity Physical Inactivity: Reg Exercise 30 min/day, Physically demanding job - Risk Stratification Risk Guidelines: Lowest Risk: Risk Factor for Smoking, Risk Factor for Dyslipidemia, Risk Factor for Diabetes, Risk Factor for Obesity, Risk Factor for Sedentary Lifestyle, Risk Factor for Depression, Moderate Risk: Risk Factor for Hypertension - For Smoking Smoking Risk Guidelines: Smoking Low Risk: None or quit greater than 6 months ago. Smoking Moderate Risk: Smoker or quit 6 months or less ago. Smoking High Risk: Smoker - For Dyslipidemia Dyslipidemia Risk Guidelines: Low Risk: Moderate Risk: High Risk: 15-25% fat 25.1-29% fat >/= 30% fat. <7% sat fat 7-9% sat fat >9% sat fat. <150 mg chol 150-299 mg chol >/= 300 mg chol. LDL <100 LDL 100-129 LDL >/= 130. Chol/HDL ratio <5.0 Chol/HDL ratio 5.0-6.0 Chol/HDL ratio >6.0. Triglycerides <100 Triglycerides 100-149 Triglycerides >/= 150 - For Diabetes Mellitus Diabetes Risk Guidelines: Diabetes Low Risk: HgA1c <6.5% and/or FBG <120. Diabetes Moderate Risk: HgA1c 6.6-7.9% and/or FBG 120-180. Diabetes High Risk: HgA1c >/= 8% and/or FBG >180 - For Obesity/Overweight Obesity/Overweight Risk Guidelines: Obesity Low Risk: BMI <25.0. Obesity Moderate Risk: BMI 25-29.9. Obesity High Risk: BMI >/= 30.0 - For Hypertension Hypertension Risk Guidelines: Hypertension Low Risk: Systolic <120 and Diastolic <80. Hypertension Moderate Risk: Systolic 120-139 and Diastolic 80-89. Hypertension High Risk: Systolic >/= 140 and Diastolic >/= 90 - For Sedentary Lifestyle Sedentary Lifestyle Risk Guidelines: Sedentary Lifestyle Low Risk: >/= 1,500 kcal/week. Sedentary Lifestyle Moderate Risk: 700-1,499 kcal/week. Sedentary Lifestyle High Risk: < 700 kcal/week - For Depression Depression Risk Guidelines: Depression Low Risk: Not clinically depressed. Depression Moderate Risk: Mildly depressed. Depression High Risk: Clinically depressed - Family History Family History: Family History (Last Reviewed 10/28/18 @ 10:58 by Penny Hercules) Unknown No problems noted. Motivation - Motivation to Participate On a scale of 1 to 10, how prepared are you to commit to attending program?: 10 What do you see as barriers to successfully being able to complete the program?: WORK What do you see as the benefits of succesfully completing the program? In other words, what do you hope to get out of participating in the program?: KNOW MY HEALTH BETTER Are there issues you are dealing with that will interfere with completing the program?: WORK Do you have a spouse or signficant other, family or friends who will help support you to complete the program?: SPOUSE
[2018-12-07 10:13] VITALS: BP 118/82; PULSE 58; RESP 16; TEMP 37; O2SAT 96; BMI 26.2
[2018-12-07 10:22] VITALS: BP 118/82
== END ==
PROVIDERS: Family Provider Family Medicine; PCP Family Medicine; Referring Provider Internal Medicine Cardiovascular Disease; Visit Provider Internal Medicine Cardiovascular Disease
DX: I25.10 Atherosclerotic heart disease of native coronary artery without angina pectoris (principal); Z95.5 Presence of coronary angioplasty implant and graft; G47.33 Obstructive sleep apnea (adult) (pediatric); E03.9 Hypothyroidism, unspecified; I10 Essential (primary) hypertension; N40.0 Benign prostatic hyperplasia without lower urinary tract symptoms; I48.0 Paroxysmal atrial fibrillation; E78.5 Hyperlipidemia, unspecified; Z79.899 Other long term (current) drug therapy; Z79.02 Long term (current) use of antithrombotics/antiplatelets; Z79.01 Long term (current) use of anticoagulants

== ENCOUNTER 2018-12-10 13:41 | Outpatient (RCR) | payer MEDICARE, OTHER, SELFPAY ==
[2017-05-20 14:31] VITALS: BMI 25.0
[2018-12-07 10:13] VITALS: BMI 26.2
== END 2018-12-22 23:59 ==
LOC: CR 13:41
PROVIDERS: Family Provider Family Medicine; PCP Family Medicine; Referring Provider Internal Medicine Cardiovascular Disease; Visit Provider Internal Medicine Cardiovascular Disease
DX: I25.10 Atherosclerotic heart disease of native coronary artery without angina pectoris (principal); Z95.5 Presence of coronary angioplasty implant and graft
CPT/HCPCS: 93798

== ENCOUNTER 2018-12-10 14:52 | Emergency (ER) | payer MEDICARE, OTHER, SELFPAY ==
[2017-05-20 14:31] VITALS: BMI 25.0
[2018-12-07 10:13] VITALS: BMI 26.2
[2018-12-10] VITALS (7 sets, daily range): BP systolic 142–165; BP diastolic 88–109; PULSE 53–58; RESP 12–18; TEMP 36.4; O2SAT 94–99; BMI 27.6
--- NOTE | 2018-12-10 15:07 | EKG12_ITS ---
Test Reason : CP Blood Pressure : / mmHG Vent. Rate : 055 BPM Atrial Rate : 055 BPM P-R Int : 184 ms QRS Dur : 116 ms QT Int : 434 ms P-R-T Axes : 021 -27 006 degrees QTc Int : 415 ms Sinus bradycardia Otherwise normal ECG Confirmed by CHANO SANCHEZ, LY ([id number]), digital editor PHANI SURESH ([id number]) on 12/13/2018 12:56:45 PM Referred By: DC Confirmed By:LY MADDEN MD
--- NOTE | 2018-12-10 15:08 | RAD_ITS ---
STUDY: X-RAY CHEST REASON FOR EXAM: Male, 73 years old. Chest pain TECHNIQUE: Portable chest COMPARISON: 11/02/2018 FINDINGS: There is left lower lobe scar or linear subsegmental atelectasis. There is faint density overlying the left clavicle and first rib. There is no demonstrated pleural abnormality. There is mild cardiomegaly with left ventricular enlargement.. Normal mediastinum and madeline. Normal visualized pulmonary arteries. Normal visualized aortic arch and descending thoracic aorta. Normal visualized thoracic spine. Normal visualized ribs, clavicles, and shoulders. There is no demonstrated abnormality of the visualized soft tissue structures of the upper abdomen. RAD/Chest 1 View (Portable) IMPRESSION: Mild cardiomegaly with left ventricular enlargement Faint density overlying left clavicle and first rib which is either a bone island or possible pulmonary nodule, CT chest follow-up is recommended Left lower lobe scar or linear subsegmental atelectasis Electronically Signed: Yuri Rosales, at 17:03 EDT Tel , Service support ,
--- NOTE | 2018-12-10 15:10 | ED.VISSUMM ---
- ER Visit Summary Date of Service: 12/10/18 Chief Complaint: Chest pain History of Present Illness: The patient is a 73 M who presents with chest pain. He has a history of coronary disease. He had a cardiac catheterization on November 23 of this year. He had a mid LAD stent placed and PTCA of his diagonal ostium. He has been doing well since the catheterization. He went to his first cardiac rehab session today. He was on the treadmill around 2:15 PM. He started to have chest pain that felt like his prior angina. He felt lightheaded and also complained of headache. He has been compliant with his medications including aspirin, Plavix, and Coumadin. He also has a history of atrial fibrillation and carotid dissection. He denies any other associated symptoms. Physical Examination: Blood pressure 165/89. Afebrile. Heart rate 58. Patient alert and oriented. No acute distress. Skin appears normal in color without pallor or diaphoresis. Heart regular. Lungs clear. Extremities nontender. Strong pulses. Good strength and sensation. Test Results: EKG shows sinus rhythm at a rate of 55. No sign of acute ischemia or infarction pattern. Laboratory studies and chest x-ray are pending. Emergency Department Course and Treatment: Patient placed on a monitor. EKG as above. IV access obtained. He was treated with aspirin and morphine while awaiting results. CBC, BMP unremarkable. INR done earlier today was therapeutic per patient. Troponin normal. Chest x-ray showed chronic changes and nothing acute, possibly a left pulmonary nodule. Patient was discussed with Dr. Ding. He advised that the patient may be discharged if he has a negative delta troponin and if he is pain-free. I spoke with the patient. I rechecked a 3-hour troponin which was normal. The patient reported that his pain had resolved. Patient is on blood thinners, recently on Lovenox, now therapeutic on Coumadin. I have no further suspicion for PE. He had a CT 8 years ago which was unremarkable. He has no leg swelling. He has no neurologic symptoms to suggest a vascular pathology. No other pain to suggest vascular. Patient would prefer discharge home. I advised the patient to discontinue his cardiac rehab until cleared by his mucker cofferdam. He was should return right away if his pain returns. Patient and his were advised to follow-up regarding the left pulmonary nodule. Treatment Plan: As above Disposition: Discharge Impression: 1. Chest pain 2. Left pulmonary nodule This note was generated with [employer] dictation software. It may contain incorrect words, spelling, and punctuation that were not noted in review of the chart prior to signing ED Disposition - Plan for ED Patient: Referrals: Tapan Cornelius MD [Primary Care Provider] -
[2018-12-10 15:14] LABS: Absolute Lymphocyte Count 1.15 X10^3/uL (0.83-4.51); Absolute Neutrophil Count 3.5 X10^3/uL (2.0-7.7); Basophil# 0.04 X10^3/uL; Basophil% 0.7 % (0-1); Eosinophil# 0.36 X10^3/uL; Eosinophils% 6.3 % (0-5); Hematocrit 41.9 % (40-54); Hemoglobin 14.6 g/dL (13.0-16.5); Lymphocyte # 1.15 X10^3/ul (4.0); Mean Corp Hgb Conc 34.8 g/dL (32-36); Mean Corpuscular Hgb 31.5 pg (27.0-32.0); Mean Corpuscular Volume 90.5 fL (80-94); Mean Platelet Vol. 9.1 fl (6.2-12.0); Monocyte# 0.71 X10^3/uL; Monocyte% 12.4 % (0-10); NRBC Flagged by Analyzer 0 % (0-5); Neutrophil # 3.46 X10^3/uL (2.7-7.7); Neutrophil % 60.3 % (47-70); Platelet Count 275 K/mm3 (150-450); RBC Distribution Width CV 14.8 % (11.6-14.6); RBC Distribution Width SD 48.7 fl (35.1-43.9); Red Blood Count 4.63 M/mm3 (4.6-6.2); White Blood Count 5.7 K/mm3 (4.4-11.0)
[2018-12-10 15:21] LABS: Partial Thromboplast Time 39.5 Seconds (24.1-36.2)
[2018-12-10] MEDS: Aspirin 81 MG TAB.CHEW 324 MG PO (15:22)
[2018-12-10 15:30] LABS: Anion Gap 7 (5-15); BUN 21 mg/dL (7-18); Calcium,Total 8.9 mg/dL (8.5-10.1); Chloride 107 mmol/L (98-107); Creatinine, Serum 0.88 mg/dL (0.70-1.30); EST Glomerular Filtration Rate 90 mL/min (>60); Est Glom Filt Rate - Afr Amer 109 mL/min (>60); Estimated Creatinine Clearance 60.73 ml/min; Glucose 90 mg/dL (74-106); Sodium Level 141 mmol/L (136-145)
--- NOTE | 2018-12-10 15:33 | ED.RN ---
PT REPORTS HE DOES NOT WANT MORPHINE AT THIS TIME. WILL CONTINUE TO MONITOR.
--- NOTE | 2018-12-10 18:54 | ED.DEP ---
ED Disposition - Plan for ED Patient: Instructions: CHEST PAIN, Uncertain Cause Referrals: Ryan Bermudez MD [STAFF PHYSICIAN] -
== END 2018-12-10 19:04 | disposition home or self-care (01) ==
LOC: ED 15:31
PROVIDERS: Emergency Provider Emergency Medicine; Family Provider Family Medicine; PCP Family Medicine
DX: R91.1 Solitary pulmonary nodule (principal); R07.9 Chest pain, unspecified; R51 Headache; R42 Dizziness and giddiness; I25.10 Atherosclerotic heart disease of native coronary artery without angina pectoris; I48.0 Paroxysmal atrial fibrillation; I77.71 Dissection of carotid artery; E78.00 Pure hypercholesterolemia, unspecified; G47.33 Obstructive sleep apnea (adult) (pediatric); Z95.5 Presence of coronary angioplasty implant and graft; Z79.82 Long term (current) use of aspirin; Z79.02 Long term (current) use of antithrombotics/antiplatelets; Z79.01 Long term (current) use of anticoagulants; Z79.899 Other long term (current) drug therapy
CPT/HCPCS: 71045; 80048; 84484; 85025; 85730; 93005; 99285; A4216

== ENCOUNTER 2018-12-24 09:01 | Outpatient (RCR) | payer MEDICARE, OTHER, SELFPAY ==
[2017-05-20 14:31] VITALS: BMI 25.0
[2018-12-21 14:32] VITALS: BMI 26.6
--- NOTE | 2019-01-07 08:42 | PCM.CR.ITP ---
General Information - General Information Admitting Diagnosis: PCI with stent - Education/Goals Barriers to Learning: None Cardiac Rehabilitation Goals: 1. Maintain the individual as the primary focus of care. 2. To improve the patient's quality of life. 3. Identification of cardiac risk factors and provide cardiac risk factor management. 4. Enhance the psychosocial status of the patient. 5. Reconditioning enough to allow the patient to resume customary activities. 6. Control symptoms of cardiac disease Scale for measuring improvement of personal goals: Enter appropriate number in Comments. 2 = Unchanged. 3 = Slightly Better. 4 = Moderate Improvement. 5 = Met my Goal Exercise - Initial Assessment - Visit Date of Eval: 01/07/19 Session #:: 1 - Pt is on medical hold Tobacco - Initial Assessment - Program Goals Tobacco Program Goals: Complete smoking cessation. Attend education classes. Improve Knowledge Test score - Learning Barriers Learning Barriers: Ready to Learn Psychosocial - Initial Assess - Target Goals Target Goals: Assess presence or absence of depression. Using a valid screening tool, maximizes coping skills. Positive support system - Psychosocial Test Tool Used:: HANDS Depression Questionnaire - Assistive Devices Fall Risk Assessed:: No
== END 2019-01-22 23:59 ==
LOC: CR 09:01
PROVIDERS: Family Provider Family Medicine; PCP Family Medicine; Referring Provider Internal Medicine Cardiovascular Disease; Visit Provider Internal Medicine Cardiovascular Disease
DX: I25.10 Atherosclerotic heart disease of native coronary artery without angina pectoris (principal); Z95.5 Presence of coronary angioplasty implant and graft
CPT/HCPCS: 93798

== ENCOUNTER → 2019-01-08 08:14 | Outpatient (CLI) | payer MEDICARE, OTHER, SELFPAY ==
[2017-05-20 14:31] VITALS: BMI 25.0
[2018-12-21 14:32] VITALS: BMI 26.6
--- NOTE | 2019-01-08 08:26 | CT_ITS ---
STUDY: CT CHEST WITHOUT CONTRAST REASON FOR EXAM: Male, 73 years old. Lung nodule seen on CXR, chest pain now resolved. Hx hypertension, malignant tumor (thymus) removed from behind sternum 2 years ago, heart stent. RADIATION DOSAGE (If Supplied By Facility): CTDIvol = ( 10.85 ) mGy, DLP = ( 428.31 ) mGycm TECHNIQUE: Transaxial imaging was performed without the administration of intravenous contrast material. Individualized dose optimization techniques were used for this CT. COMPARISON: 10 December 2018 plain film FINDINGS: The lungs are normal. There is no demonstrated pleural abnormality. There are calcifications of the coronary arteries. Normal mediastinum. Normal hilar regions. Normal unenhanced pulmonary arteries. Normal aorta arch and descending thoracic aorta. There are multi-level degenerative changes of the thoracic spine. Peripelvic cysts are present with right lower renal partially viewed in largest cyst measuring 3.[address]/Chest without Contrast IMPRESSION: No evidence of acute cardiopulmonary process or evidence of left upper lung nodule. Electronically Signed: Jair Valle DO at 9:32 EDT , Service support ,
== END ==
PROVIDERS: Family Provider Family Medicine; PCP Family Medicine; Referring Provider Family Medicine; Visit Provider Family Medicine
DX: R91.1 Solitary pulmonary nodule (principal)
CPT/HCPCS: 71250

== ENCOUNTER → 2019-06-17 08:10 | Outpatient (CLI) | payer MEDICARE, OTHER, SELFPAY ==
[2017-05-20 14:31] VITALS: BMI 25.0
[2019-06-09 09:19] VITALS: BMI 27.4
[2019-06-17 08:47] LABS: AST(SGOT) 27 U/L (15-37); Alanine Aminotransfer ALT/SGPT 33 U/L (16-61); Alkaline Phosphatase 74 U/L (45-117); Cholesterol 221 mg/dL (200); Globulin 3.8 g/dL (2.2-4.2); High Density Lipoprotein 82 mg/dL; Protein, Total 7.8 g/dL (6.4-8.2); Triglycerides 77 mg/dL; Very Low Density Lipoprotein 15 mg/dL (5-40)
== END ==
LOC: LAB 08:12
PROVIDERS: PCP Family Medicine; Referring Provider Internal Medicine Cardiovascular Disease; Visit Provider Internal Medicine Cardiovascular Disease
DX: E78.00 Pure hypercholesterolemia, unspecified (principal)
CPT/HCPCS: 36415; 80061; 80076

== ENCOUNTER 2019-07-06 03:36 | Inpatient (IN) | payer MEDICARE, OTHER, SELFPAY ==
[2017-05-20 14:31] VITALS: BMI 25.0
[2019-06-09 09:19] VITALS: BMI 27.4
[2019-07-06] VITALS (15 sets, daily range): BP systolic 63–116; BP diastolic 54–83; PULSE 54–159; RESP 12–21; TEMP 36.7–37; O2SAT 92–100; BMI 28.0; BMI 27.6
--- NOTE | 2019-07-06 03:39 | ED.RN ---
called for ekg per rn request, pulled old ekgs for
--- NOTE | 2019-07-06 03:56 | EKG12_ITS ---
Test Reason : RHYTHM CONVERSION Blood Pressure : / mmHG Vent. Rate : 068 BPM Atrial Rate : 068 BPM P-R Int : 210 ms QRS Dur : 114 ms QT Int : 412 ms P-R-T Axes : 029 -36 -03 degrees QTc Int : 438 ms Sinus rhythm with sinus arrhythmia with 1st degree A-V block Left axis deviation Abnormal ECG Confirmed by DEJAN SPENCER ([id number]), newspaper editor managing NIKOLAS QUINN ([id number]) on 07/07/2019 3:03:09 PM Referred By: NARGIS Confirmed By:DEJAN SPENCER
--- NOTE | 2019-07-06 03:56 | RAD_ITS ---
STUDY: X-RAY CHEST REASON FOR EXAM: Male, 73 years old. WOKE UP AT 0100 WITH A RAPID HEART RATE PER PT. HAVING CHEST DISCOMFORT -- HX OF AFIB TECHNIQUE: Single AP portable view of the chest. COMPARISON: 11/02/2018. 12/03/2018. 01/07/2017 FINDINGS: There are superimposed monitor leads. Minor scarring in the left base. There are areas of hyperinflation. There is no focal parenchymal abnormality. There is no demonstrated pleural abnormality. There is mild cardiac enlargement. Normal mediastinum and madeline. Normal visualized pulmonary arteries. There is atherosclerotic calcification of the aortic arch with tortuosity. There are diffuse degenerative changes of the visualized thoracic spine. Normal visualized ribs, clavicles, and shoulders. There is no demonstrated abnormality of the visualized soft tissue structures of the upper abdomen. RAD/Chest 1 View (Portable) IMPRESSION: Stable cardiac enlargement, atherosclerosis, scarring in the left base, hyperinflation and degenerative changes. Exam No pulmonary edema, congestive heart failure or confluent pneumonia. Electronically Signed: Ally Najera MD at 4:36 EST , Service support ,
--- NOTE | 2019-07-06 03:57 | ED.VIS.GEN ---
History of Present Illness Chief Complaint: Palpitations Informant: Patient Narrative: Patient stated he awoke up approximately 3 hours ago with heart palpitations and heart racing. He has had atrial fibrillation in the past. Also stated he has had SVT. He is never needed to be defibrillated. Currently he is having some chest pressure substernal. He has had acute coronary syndrome in the past. He has cardiac stents. He is on Coumadin. Current severity is mild. Denies shortness of breath. Worsened by nothing. Comes in for further evaluation. He stated he is out of his flecainide for the last 3 days. He takes this for atrial fibrillation. He also takes Cardizem. He took a dose of his 's flecainide tonight 100 mg which is a double dose for him. - Past Medical History (1) Chest tightness Status: Acute (2) Hematuria Status: Acute (3) Somatic dysfunction of rib cage region Status: Acute (4) Atelectasis Status: Chronic (5) Atherosclerotic heart disease of [place] coronary artery without angina pectoris Status: Chronic Comment: Successful PTCA/JOSEFINA mid LAD with a 2.5 x 32 Promus Synergy, post dilated in proximal 2/3 with a 2.75 x 8 NC balloon, and flared at proximal stent with a 3.0 x 8 NC Balloon; 85%-->0%, no dissection. Successful PCI with PTCA to the balloon angioplasty only to ostium of DIAG#1 with a 2.0 x 12 balloon; 75%-->30%, no dissection. (6) Carotid dissection, bilateral Status: Chronic Comment: Spontaneous (7) Family history of cardiovascular disease Status: Chronic (8) H/O right and left heart catheterization Status: Chronic Comment: Normal LV size, wall motion,and systolic function; Perserved Left Ventricular systolic function with normal EDP; LVEF: by LV gram 65 %; Single vessel CAD of the mid LAD; Non obstructive coronary arteries. Aortic Valve Stenosis- Mild; Right heart pressures - Normal; Aortic Valve Insufficiency Mild RECOMMENDATIONS: Staged percutaneous intervention vs. Surgical Intervention; DEVEN in 1-2 week to eval for AVR vs medical management followed by PCI to LAD. Restart lovenox on 11/14/2108. Start plavix 75mg po daily. Manual sheath removal. (9) Hearing loss of left ear Status: Chronic Comment: Since childhood (10) History of thymectomy Status: Chronic Comment: Done @ [facility] per Dr. Ryan Quintanilla for anterior mediastinal mass, malignant (11) Hyperlipidemia Status: Chronic (12) Hypertension Status: Chronic (13) Hypothyroidism Status: Chronic (14) Nonrheumatic aortic (valve) stenosis Status: Chronic Comment: Moderately severe per echo 06/15/[address] Ontiveros [facility]: NADEGE 0.84 (15) Nonrheumatic mitral valve regurgitation Status: Chronic Comment: Mild 1+ per echo 06/15/17 @ [facility] (16) SERGO (obstructive sleep apnea) Status: Chronic (17) Paroxysmal A-fib Status: Chronic (18) Pericarditis Status: Chronic (19) Stented coronary artery Status: Chronic Comment: Successful PTCA/JOSEFINA mid LAD with a 2.5 x 32 Promus Synergy, post dilated in proximal 2/3 with a 2.75 x 8 NC balloon, and flared at proximal stent with a 3.0 x 8 NC Balloon; 85%-->0%, no dissection. Successful PCI with PTCA to the balloon angioplasty only to ostium of DIAG#1 with a 2.0 x 12 balloon; 75%-->30%, no dissection. (20) Thymoma, malignant Status: Chronic Past Medical History - Allergies and Home Meds Allergies/Adverse Reactions: Allergies cefuroxime Allergy (Intermediate, Verified 07/06/19 03:37) Rash rosuvastatin [From Crestor] Adverse Reaction (Severe, Verified 07/06/19 03:37) severe myalgias lisinopril Adverse Reaction (Intermediate, Verified 07/06/19 03:37) didn't control bp well, labile cephalexin Adverse Reaction (Verified 07/06/19 03:37) Pain in joints levofloxacin [From Levaquin] Adverse Reaction (Verified 07/06/19 03:37) Unknown GENERALIZED ACHINESS Primary Care Physician: Tapan Cornelius MD [Primary Care Provider] - Prior records reviewed: Yes Past Medical History: - - Problem list Surgical History: appendectomy, herniorrhaphy - Right inguinal, total knee arthroplasty - He had a right total knee arthroplasty 2 years ago and had a left total knee arthroplasty 6 weeks ago., TURP - He is actually had 3 surgeries on his prostate., - - Thymectomy Lives: With Family Smoking Status: Never smoker Alcohol: None Drugs: None - Family History Paternal Family History: Family History (Last Reviewed 06/09/19 @ 08:23 by Penny Hercules) Unknown No problems noted. Family History: Reports: - - His father suddenly at the age of 75 and the patient does not know the cause. Sibling Family History: Family History (Last Reviewed 06/09/19 @ 08:23 by Penny Hercules) Unknown No problems noted. Family History: Reports: Heart Disease - He has a brother who is older than he has has had a stent in the past and his twin sister has had an ablation. Review of Systems General: Denies: Chills, Fever, Sweats Eyes: Denies: Visual changes - bilaterally, Diplopia ENT: Denies: Rhinorrhea, Sore throat Cardiovascular: Reports: Chest pain, Palpitations, Heart racing Respiratory: Denies: Dyspnea, Cough, Dyspnea on exertion Gastrointestinal: Denies: Abdominal pain, Nausea, Vomiting, Diarrhea, Melena, Hematochezia Genitourinary: Denies: Dysuria, Hematuria, Frequency Musculoskeletal: Denies: Back pain, Extremity Pain Skin: Denies: Rash, Wounds Neurological: Denies: Headache, Weakness, Numbness Physical Exam Vital Signs/Narrative: Vital Signs Temp Pulse Resp BP Pulse Ox 07/06/19 03:37 98.6 F 149 H 17 114/69 96 General: Well nourished, Well developed, No Acute Distress Head: Normocephalic, Atraumatic Eyes: Perrl, EOMI ENT: Moist mucous membranes, No rhinorrhea Neck: Supple, Nontender Cardiovascular: Regular rhythm, No murmurs, Tachycardia. Negative for: Regular rate Respiratory: No distress, CTA bilaterally, Chest nontender Abdomen: Soft, Nontender, Nondistended, Normal bowel sounds Back: Nontender, Normal Inspection Extremities: Nontender, No edema Skin: Normal color, No rash Neurological: Alert, Oriented x3, Cranial nerves II-XII grossly intact, Normal Strength, Normal Sensation Psychological: Normal affect, Normal Mood Diagnostic/Tx/Re-eval - Medical Decision Making Initial blood pressure 114/69 however dropped to 80 systolic. Patient with persistent chest pressure. Due to the fact that the patient has an atrial tachycardia which I suspect is SVT and the patient is hypotensive with chest pressure I will synchronize cardiovert this patient. Lab work and chest x-ray obtained. EKG shows regular tachycardia consistent with SVT at 150. Patient was cardioverted with 150 J with no conversion. This was after giving 20 mg of propofol procedural sedation. The patient was then cardioverted again at 200 J with no conversion. The patient had no difficulty protecting his airway. He woke up soon after. Case discussed with cardiology Dr. Bermudez. He recommended adenosine. The patient given 6 mg of adenosine with no conversion. Patient was given 12 mg of adenosine with conversion to normal sinus rhythm. Repeat EKG obtained shows sinus rhythm at a rate of 68 with no acute ischemia. Lab work returned with no major abnormalities. Troponin negative. CBC shows nothing acute. Electrolytes normal. Chest x-ray shows nothing acute. Patient monitored in department. Discussed again with cardiology Dr. Bermudez. Given a dose of his Coreg. He already took a dose of flecainide double dose of 100 mg at home. Discussed with the hospitalist. At this time due to the fact that the patient was hypotensive with SVT requiring cardioversion we admit the patient for close monitoring. On reevaluation he has no chest discomfort - Critical Care Time Critical care time (excluding procedures): 30-74 minutes ED Disposition - Plan for ED Patient: Disposition: [facility] Diagnosis: Sustained SVT, Hypotension
[2019-07-06 04:03] LABS: Absolute Lymphocyte Count 1.67 X10^3/uL (0.83-4.51); Absolute Neutrophil Count 5.4 X10^3/uL (2.0-7.7); Basophil# 0.05 X10^3/uL; Basophil% 0.6 % (0-1); Eosinophil# 0.41 X10^3/uL; Eosinophils% 4.9 % (0-5); Hematocrit 49.1 % (40-54); Hemoglobin 16.2 g/dL (13.0-16.5); Lymphocyte # 1.67 X10^3/ul (4.0); Lymphocyte % 19.8 % (19-41); Mean Corpuscular Hgb 30.5 pg (27.0-32.0); Mean Corpuscular Volume 92.3 fL (80-94); Monocyte# 0.85 X10^3/uL; Monocyte% 10.1 % (0-10); NRBC Flagged by Analyzer 0 % (0-5); Neutrophil # 5.43 X10^3/uL (2.7-7.7); Neutrophil % 64.2 % (47-70); Platelet Count 336 K/mm3 (150-450); RBC Distribution Width CV 14.3 % (11.6-14.6); RBC Distribution Width SD 48.5 fl (35.1-43.9); Red Blood Count 5.32 M/mm3 (4.6-6.2); White Blood Count 8.4 K/mm3 (4.4-11.0)
[2019-07-06 04:13] LABS: International Normalized Ratio 2.5; Prothrombin Time (Protime)PT. 26.8 SECONDS (11.7-14.9)
[2019-07-06 04:16] LABS: Anion Gap 5 (5-15); BUN 20 mg/dL (7-18); BUN/Creat Ratio 21.6 RATIO (10-20); Chloride 106 mmol/L (98-107); Creatinine, Serum 0.92 mg/dL (0.70-1.30); EST Glomerular Filtration Rate 85 mL/min (>60); Est Glom Filt Rate - Afr Amer 102 mL/min (>60); Estimated Creatinine Clearance 58.09 ml/min; Glucose 105 mg/dL (74-106); Potassium 3.9 mmol/L (3.5-5.1); Sodium Level 139 mmol/L (136-145)
[2019-07-06] MEDS: Adenosine 6 MG/2 ML Syringe IV (04:22)
[2019-07-06] MEDS: Adenosine 6 MG/2 ML Syringe 12 MG IV (04:23)
--- NOTE | 2019-07-06 04:27 | EKG12_ITS ---
Test Reason : DYSRHYTHMIA Blood Pressure : / mmHG Vent. Rate : 150 BPM Atrial Rate : 150 BPM P-R Int : 000 ms QRS Dur : 120 ms QT Int : 298 ms P-R-T Axes : 000 -52 040 degrees QTc Int : 470 ms Supraventricular tachycardia Left anterior fascicular block Abnormal ECG Confirmed by DEJAN SPENCER ([id number]), video news editor NIKOLAS QUINN ([id number]) on 07/07/2019 3:03:44 PM Referred By: NARGIS Confirmed By:DEJAN SPENCER
--- NOTE | 2019-07-06 04:27 | EKG12_ITS ---
Test Reason : DYSRHYTHMIA Blood Pressure : / mmHG Vent. Rate : 136 BPM Atrial Rate : 138 BPM P-R Int : 000 ms QRS Dur : 102 ms QT Int : 330 ms P-R-T Axes : 000 -47 009 degrees QTc Int : 496 ms Supraventricular tachycardia Left axis deviation Pulmonary disease pattern Abnormal ECG Confirmed by DEJAN SPENCER ([id number]), slot editor NIKOLAS QUINN ([id number]) on 07/07/2019 3:03:24 PM Referred By: NARGIS Confirmed By:DEJAN SPENCER
[2019-07-06] MEDS: Propofol 200 MG/20 ML Vial 20 MG IV BOLUS (04:28)
[2019-07-06] MEDS: Carvedilol 6.25 MG Tablet PO (05:22)
--- NOTE | 2019-07-06 05:54 | HP.PCM_ITS ---
Problem List (1) SVT (supraventricular tachycardia) Status: Acute (2) Atherosclerotic heart disease of [place] coronary artery without angina pectoris Status: Chronic Qualifiers: [place] vs. transplanted heart: [place] heart Qualified Code(s): I25.10 - Atherosclerotic heart disease of [place] coronary artery without angina pectoris Comment: Successful PTCA/JOSEFINA mid LAD with a 2.5 x 32 Promus Synergy, post d ilated in proximal 2/3 with a 2.75 x 8 NC balloon, and flared at proximal stent with a 3.0 x 8 NC Balloon; 85%-->0%, no dissection. Successful PCI with PTCA to the balloon angioplasty only to ostium of DIAG#1 with a 2.0 x 12 balloon; 75%-->30%, no dissection. (3) Hearing loss of left ear Status: Chronic Qualifiers: Hearing loss type: unspecified Qualified Code(s): H91.92 - Unspecified hearing loss, left ear Comment: Since childhood (4) Thymoma, malignant Status: Chronic (5) Hyperlipidemia Status: Chronic Qualifiers: Hyperlipidemia type: pure hypercholesterolemia Qualified Code(s): E78.00 - Pure hypercholesterolemia, unspecified; E78.0 - Pure hypercholesterolemia (6) Paroxysmal A-fib Status: Chronic (7) SERGO (obstructive sleep apnea) Status: Chronic (8) Carotid dissection, bilateral Status: Chronic Comment: Spontaneous (9) Hypothyroidism Status: Chronic Qualifiers: Hypothyroidism type: unspecified Qualified Code(s): E03.9 - Hypothyroidism, unspecified (10) Hypertension Status: Chronic Qualifiers: Hypertension type: essential hypertension Qualified Code(s): I10 - Essential (primary) hypertension History of Present Illness Date of Admission: 07/06/19 Chief Complaint: Chest pain, palpitations, lightheadedness, dizziness The patient is a 73 y/o M w/ PMHx: CAD s/p PCI mid LAD and balloon angioplasty to the ostium of the diagonal, HTN, HLD, Hx Pericarditis s/p thymectomy w/ hx Thymoma, Chronic L sided hearing deficit, Hypothyroidism, Valvular Heart Disease, SERGO, PAF, Hx Carotid dissection BL who presents to the [facility] ED on 07/06/19 with history of onset palpitations with racing heart sensation with substernal chest pressure, rated 3-4 out of 10 in severity with no radiation with no associated dyspnea, diaphoresis, nausea or emesis with no alleviating or worsening factors; however, he did have lightheadedness and dizziness associated prompting eventual ED presentation as patient with history of PAF. Patient does note that he has been out of his flecainide for approximately 3 days. He did take a dose of his 's flecainide on evening prior to ED presentation of approximately 100 mg. In the ED upon presentation patient noted to be in SVT, hypotensive with a shock attempted, unsuccessful with administration of initially adenosine 6 mg and repeat dose of 12 mg administered with spontaneous conversion following. Additional ED work-up included initial T 88.6, heart rate initially in the 140s to 150s with improvement to 71 following conversion, BP initially 89/69 with currently improvement to 115/83, respiratory rate 18, 100% on 2 L nasal cannula, CBC with WC 8.4, hemoglobin 16.2, platelet 336 without market shift, INR 2.5, BMP unremarkable, troponin less than 0.015, EKG upon initial presentation with evidence of SVT with repeat performed following spontaneous conversion with confirmation of sinus rhythm, chest x-ray with cardiac enlargement, atherosclerosis with scarring at the left base with hyperinflation and degenerative changes. In the ED as noted patient administered adenosine 6 mg IV x1 followed by adenosine 12 mg IV x1 with propofol 20 mg IV bolus administered for shock in addition to recently administered Coreg 6.25 mg p.o. x1. On evaluation patient noted resolution of prior chest discomfort, 0-10. Past Medical History Past Medical History (Chronic Problems): Chronic Problems (Last Reviewed 06/09/19 @ 08:23 by Penny Hercules) Atherosclerotic heart disease of [place] coronary artery without angina pectoris (Chronic) Successful PTCA/JOSEFINA mid LAD with a 2.5 x 32 Promus Synergy, post dilated in proximal 2/3 with a 2.75 x 8 NC balloon, and flared at proximal stent with a 3.0 x 8 NC Balloon; 85%-->0%, no dissection. Successful PCI with PTCA to the balloon angioplasty only to ostium of DIAG#1 with a 2.0 x 12 balloon; 75%-->30%, no dissection. Stented coronary artery (Chronic 11/23/18) Successful PTCA/JOSEFINA mid LAD with a 2.5 x 32 Promus Synergy, post dilated in proximal 2/3 with a 2.75 x 8 NC balloon, and flared at proximal stent with a 3.0 x 8 NC Balloon; 85%-->0%, no dissection. Successful PCI with PTCA to the balloon angioplasty only to ostium of DIAG#1 with a 2.0 x 12 balloon; 75%-->30%, no dissection. H/O right and left heart catheterization (Chronic 11/12/18) Normal LV size, wall motion,and systolic function; Perserved Left Ventricular systolic function with normal EDP; LVEF: by LV gram 65 %; Single vessel CAD of the mid LAD; Non obstructive coronary arteries. Aortic Valve Stenosis- Mild; Right heart pressures - Normal; Aortic Valve Insufficiency Mild RECOMMENDATIONS: Staged percutaneous intervention vs. Surgical Intervention; DEVEN in 1-2 week to eval for AVR vs medical management followed by PCI to LAD. Restart lovenox on 11/14/2108. Start plavix 75mg po daily. Manual sheath removal. Hearing loss of left ear (Chronic) Since childhood Nonrheumatic mitral valve regurgitation (Chronic) Mild 1+ per echo 06/15/17 @ [facility] [place] Nonrheumatic aortic (valve) stenosis (Chronic) Moderately severe per echo 06/15/[address] Ontiveros [facility]: NADEGE 0.84 History of thymectomy (Chronic 04/23/17) Done @ [facility] per Dr. Ryan Quintanilla for anterior mediastinal mass, malignant Atelectasis (Chronic) Thymoma, malignant (Chronic) Hyperlipidemia (Chronic) Paroxysmal A-fib (Chronic) Pericarditis (Chronic) SERGO (obstructive sleep apnea) (Chronic) Carotid dissection, bilateral (Chronic 04/08/16) Spontaneous Hypothyroidism (Chronic) Hypertension (Chronic) Family history of cardiovascular disease (Chronic) Medical History: Medical History (Last Reviewed 06/09/19 @ 08:23 by Penny Hercules) Atherosclerotic heart disease of [place] coronary artery without angina pectoris (Chronic) I25.10 Successful PTCA/JOSEFINA mid LAD with a 2.5 x 32 Promus Synergy, post dilated in proximal 2/3 with a 2.75 x 8 NC balloon, and flared at proximal stent with a 3.0 x 8 NC Balloon; 85%-->0%, no dissection. Successful PCI with PTCA to the balloon angioplasty only to ostium of DIAG#1 with a 2.0 x 12 balloon; 75%-->30%, no dissection. Chest tightness (Acute) R07.89 Hematuria (Acute) R31.9 Hearing loss of left ear (Chronic) H91.92 Since childhood Nonrheumatic mitral valve regurgitation (Chronic) I34.0 Mild 1+ per echo 06/15/17 @ [facility] [place] Nonrheumatic aortic (valve) stenosis (Chronic) I35.0 Moderately severe per echo 06/15/[address] Ontiveros [facility] [place]: NADEGE 0.84 Atelectasis (Chronic) J98.11 Thymoma, malignant (Chronic) C37 Hyperlipidemia (Chronic) E78.5 Paroxysmal A-fib (Chronic) I48.0 SERGO (obstructive sleep apnea) (Chronic) G47.33 Carotid dissection, bilateral (Chronic) Onset Date: 04/08/16 I77.71 Spontaneous Hypothyroidism (Chronic) E03.9 Hypertension (Chronic) I10 History of BPH Z87.438 History of kidney stones Z87.442 History of pericarditis Onset Date: ~04/2017 Z86.79 post thymectomy Right inguinal hernia K40.90 Chest pain (Resolved) R07.9 He has been having chest pain now for the past 2 weeks. Allergies cefuroxime Allergy (Intermediate, Verified 07/06/19 03:37) Rash rosuvastatin [From Crestor] Adverse Reaction (Severe, Verified 07/06/19 03:37) severe myalgias lisinopril Adverse Reaction (Intermediate, Verified 07/06/19 03:37) didn't control bp well, labile cephalexin Adverse Reaction (Verified 07/06/19 03:37) Pain in joints levofloxacin [From Levaquin] Adverse Reaction (Verified 07/06/19 03:37) Unknown GENERALIZED ACHINESS Home Medications: Ambulatory Orders Medication Instructions Recorded Levothyroxine [Synthroid] 75 mcg PO DAILY 01/07/17 Multivitamin,Therapeutic [Thera] 1 ea PO DAILY 01/07/17 Ubidecarenone [Q-Sorb Co Q-10] 100 mg PO BID 08/13/17 Carvedilol [Coreg (Beta Jarret)] 6.25 mg PO BID #60 tab 08/14/17 aspirin 81 mg tablet,delayed 81 mg PO DAILY #30 tab 10/28/18 release rosuvastatin 5 mg tablet 5 mg PO DAILY 10/28/18 clopidogrel 75 mg tablet 75 mg PO DAILY #30 tab 11/12/18 warfarin 7.5 mg tablet 7.5 mg PO DAILY #1 tab 12/01/18 nitroglycerin 0.4 mg sublingual 0.4 mg SUBLINGUAL Q5-15M PRN #25 12/21/18 tablet tab amlodipine 5 mg tablet 2.5 mg PO DAILY tab 02/04/19 flecainide 50 mg tablet 50 mg PO Q12H #90 tab 06/09/19 lysine 500 mg tablet 500 mg PO DAILY 06/09/19 Surgical History: Surgical History (Last Reviewed 06/09/19 @ 08:23 by Penny Hercules) Stented coronary artery (Chronic) Onset Date: 11/23/18 Z95.5 Successful PTCA/JOSEFINA mid LAD with a 2.5 x 32 Promus Synergy, post dilated in proximal 2/3 with a 2.75 x 8 NC balloon, and flared at proximal stent with a 3.0 x 8 NC Balloon; 85%-->0%, no dissection. Successful PCI with PTCA to the balloon angioplasty only to ostium of DIAG#1 with a 2.0 x 12 balloon; 75%-->30%, no dissection. H/O right and left heart catheterization (Chronic) Onset Date: 11/12/18 Z98.890 Normal LV size, wall motion,and systolic function; Perserved Left Ventricular systolic function with normal EDP; LVEF: by LV gram 65 %; Single vessel CAD of the mid LAD; Non obstructive coronary arteries. Aortic Valve Stenosis- Mild; Right heart pressures - Normal; Aortic Valve Insufficiency Mild RECOMMENDATIONS: Staged percutaneous intervention vs. Surgical Intervention; DEEVN in 1-2 week to eval for AVR vs medical management followed by PCI to LAD. Restart lovenox on 11/14/2108. Start plavix 75mg po daily. Manual sheath removal. History of thymectomy (Chronic) Onset Date: 04/23/17 Z90.89 Done @ [facility] per Dr. Ryan Quintanilla for anterior mediastinal mass, malignant Surgical History: appendectomy, herniorrhaphy - Right inguinal, total knee arthroplasty - He had a right total knee arthroplasty 2 years ago and had a left total knee arthroplasty 6 weeks ago., TURP - He is actually had 3 surgeries on his prostate., - - Thymectomy Psychiatric History: No pertinent psych hx Lives: With Family Smoking Status: Never smoker Tobacco Use: Non-smoker Alcohol: None Drugs: None - *Family History Paternal Family History: Family History (Last Reviewed 06/09/19 @ 08:23 by Penny Hercules) Unknown No problems noted. History Items: - - His father suddenly at the age of 75 and the patient does not know the cause. Sibling Family History: Family History (Last Reviewed 06/09/19 @ 08:23 by Penny Hercules) Unknown No problems noted. History Items: Heart Disease - He has a brother who is older than he has has had a stent in the past and his twin sister has had an ablation. Review of Systems Constitutional: Reports: Malaise, Weakness, Fatigue. Denies: Chills, Fever, Weight Change HEENT: Denies: Head Aches, Sinus Congestion, Sinus Drainage Cardiovascular: Reports: Chest Pain, Chest Pressure, Light Headedness, Palpitations. Denies: Chest Tightness, Heaviness, Orthopnea, Syncope Respiratory: Denies: Cough, Shortness of Breath, Shortness of breath at rest, Shortness of breath upon exertion, Sputum production Gastrointestinal: Denies: Abdominal Pain, Nausea, Vomiting Genitourinary: Denies: Dysuria Musculoskeletal: Reports: Joint Pain. Denies: Joint Tenderness Skin: Denies: Rash, Wounds Neurological: Denies: Numbness, Tingling, Focal weakness Psychiatric: Denies: Anxiety, Depression, Homicidal Ideations, Suicidal Ideations Hematologic/ Lymphatic: Denies: Easy Bruising, Easy Bleeding VTE Information - Inpt Only VTE Present on Admission: No VTE Mechan Device Prophylaxis: SCD's VTE Pharm Prophylaxis ordered?: No Reason prophylaxis not ordered:: Treatment Not Indicated - Continue home coumadin w/ INR trending. Patient Problems: Active and Suspected Problems (Last Reviewed 06/09/19 @ 08:23 by Penny Hercules) SVT (supraventricular tachycardia) (Acute) Sustained SVT (Acute) Hypotension (Acute) Subjective: Seated upright in the ED bed extremely fatigued appearing, notes prior chest pressure and palpitations have improved. Objective: Physical Examination: General: awake, alert, oriented x 3 and cooperative, seated right in the ED bed, very fatigued appearing, notes chest pressure has resolved. Skin: normal color, turgor, no icterus, cyanosis. HEENT: AT/NC, EOMI, PERRLA, moderately dry MM, no carotid bruits or JVD noted. Lungs: CTA bilaterally, moderate effort, moderate decrease BL bases, no rales, ronchi or wheezing. Heart: Currently improved, regular rate and rhythm; no gallop, rub audible. Abdomen: soft, NTTP, ND, normal BS, no HSM. Extremities: no cyanosis, clubbing, or edema. Neurological: patient awake, alert, oriented x 3; cognitive function intact; pupils equally reactive to light and accomodation; cranial nerves II-XII grossly normal, moving all 4 extremities, no focal deficits, strength moderately to severely globally decreased secondary to recent acute presentation. Psychiatric: affect appears fatigued, no acute evidence of depressive or anxiety feelings. - Physical Exam Vitals/I&O's: Vital Signs Temp Pulse Resp BP Pulse Ox 98.6 F 71 15 115/83 H 96 07/06/19 03:37 07/06/19 05:00 07/06/19 05:00 07/06/19 05:00 07/06/19 05:00 Oxygen Flow Rate (L/min) [6] 15 Oxygen Flow Rate (L/min) [5] 15 Oxygen Flow Rate (L/min) [4] 15 Oxygen Flow Rate (L/min) [2] 15 Oxygen Flow Rate (L/min) [1 ( 15 Initial Baseline)] Oxygen Flow Rate (L/min) 2 Oxygen Delivery Method [6] Non-Rebreather Oxygen Delivery Method [5] Non-Rebreather Oxygen Delivery Method [4] Non-Rebreather Oxygen Delivery Method [3] Non-Rebreather Oxygen Delivery Method [2] Non-Rebreather Oxygen Delivery Method [1 ( Non-Rebreather Initial Baseline)] Oxygen Delivery Method Nasal Cannula Weight: 163 lb 2.273 oz Body Mass Index (BMI) 28.0 Finger Stick Blood Glucose 89 Laboratory Results 07/06/19 03:40: WBC 8.4, RBC 5.32, Hgb 16.2, Hct 49.1, MCV 92.3, MCH 30.5, MCHC 33.0, RDW Std Deviation 48.5 H, RDW Coeff of Eddie 14.3, Plt Count 336, MPV 9.0, Immature Gran % (Auto) 0.400, Neut % (Auto) 64.2, Lymph % (Auto) 19.8, [place] % (Auto) 10.1 H, Eos % (Auto) 4.9, Baso % (Auto) 0.6, Absolute Neuts (auto) 5.4, Absolute Lymphs (auto) 1.67, Nucleated RBC % 0 07/06/19 03:40: PT 26.8 H, INR 2.5 07/06/19 03:40: Sodium 139, Potassium 3.9, Chloride 106, Carbon Dioxide 28.0, Anion Gap 5, BUN 20 H, Creatinine 0.92, Estim Creat Clear Calc 58.09, Est GFR (MDRD) Af Amer 102, Est GFR (MDRD) Non-Af 85, BUN/Creatinine Ratio 21.6 H, Glucose 105, Calcium 9.0, Troponin I < 0.015 Assessment/Plan All Active Problems (Last Reviewed 06/09/19 @ 08:23 by Penny Hercules) SVT (supraventricular tachycardia) (Acute) Sustained SVT (Acute) Hypotension (Acute) Chest tightness (Acute) Hematuria (Acute) Somatic dysfunction of rib cage region (Acute) Chest pain (Resolved) Dehydration (Resolved) Elevated d-dimer (Resolved) Generalized weakness (Resolved) Hypertensive urgency (Resolved) The patient is a 73 y/o M w/ PMHx: CAD s/p PCI mid LAD and balloon angioplasty to the ostium of the diagonal, HTN, HLD, Hx Pericarditis s/p thymectomy w/ hx Thymoma, Chronic L sided hearing deficit, Hypothyroidism, Valvular Heart Disease, SERGO, PAF, Hx Carotid dissection BL who presents to the [facility] ED on 07/06/19 with history of onset palpitations with racing heart sensation with substernal chest pressure with no radiation with no associated dyspnea, diaphoresis, nausea or emesis with no alleviating or worsening factors; however, he did have lightheadedness and dizziness associated. 1. Chest Pain, Hypotension, Palpitations secondary to SVT: In the ED as noted patient with SVT upon presentation, shocked x1 unsuccessful with follow-up adenosine x2 with spontaneous conversion following prior to need for additional shock, likely onset with recent missed flecainide regimen x3 days given that the patient is on this regimen for his paroxysmal atrial fibrillation concurrently, will admit to telemetry, closely monitor, reinitiate patient's flecainide regimen which he had missed x 3 days prior to recent administration of an increased dose from his , will consult cardiology as may prefer addition/alteration to current regimen including potential increase of his beta- jarret, Cardizem or even flecainide, per Dr. Bermudez direction given double dose of his flecainide recently will initiate next dose in the evening, will obtain magnesium level with supplementation as needed, obtain TSH level, cycle cardiac enzymes, repeat EKG in a.m. 2. CAD: Status post 11/2018 PCI to the LAD and balloon angioplasty to the ostium of the diagonal, will continue aspirin, Plavix, coumadin w/ INR trending, Coreg, not on VINEET inhibitor or ARB. 3. Hypertension: Continue home regimen including Norvasc, Coreg, PRN hydralazine. 4. Hyperlipidemia: Continue home statin regimen. 5. Hypothyroidism: Continue home synthroid regimen, TSH and free T4 pending. 6. History of thymoma: Status post thymectomy, noted postoperative complication with pericarditis. 7. Valvular heart disease: 11/23/2018 DEVEN with noted EF 65%, stage I diastolic dysfunction, bubble contrast study negative for right to left interatrial shunt, trivial MVI, trivial TBI, moderate restriction of the aortic valve, moderate aortic stenosis, calcified aortic valve area 1.4 to 1.6 cm? with no thrombus detected in the left atrial appendage. 8. History of carotid dissection: Spontaneous dissection per report, maintained on asa, plavix, Coumadin with INR trending, continue hypertensive regimen as well as statin therapy. 9. SERGO: CPAP nightly. 10. DVT prophylaxis: SCDs, Coumadin with INR trending, therapeutic upon admission. 11. CODE status: Patient HCPOA is patient's and living will is currently in place. Discussed CODE status at length including difference between FULL code, DNR-CCA and DNR-CC status. Following discussions about the differences in these status, requested full code. Advanced Care Planning Face to Face Time: 16 minutes. Code Visit Inpatient E&M: 11610 Init Hosp L3 Procedures: 15397 Advncd Care Plan 30 Min
[2019-07-06 07:55] LABS: Magnesium 2.1 mg/dL (1.6-2.6); T4 Free Direct 0.98 ng/dL (0.76-1.46); Thyroid Stim Hormone (TSH) 3.79 uIU/mL (0.358-3.74)
[2019-07-06] MEDS: 0.9% Normal Saline 1,000 ML 100 ML IV (08:03)
[2019-07-06] MEDS: 0.9% Saline Lock 10 ML Syringe IV (08:03)
[2019-07-06] MEDS: amLODIPine 2.5 MG Tablet PO (08:07)
[2019-07-06] MEDS: Clopidogrel Bisulfate 75 MG Tablet PO (08:07)
[2019-07-06] MEDS: Aspirin E.C. 81 MG Tablet PO (08:07)
[2019-07-06] MEDS: Flecainide 100 MG Tablet 50 MG PO (08:08)
[2019-07-06] MEDS: Famotidine 20 MG Tablet PO (08:08)
--- NOTE | 2019-07-06 08:32 | PCM.CONS.C ---
<Roger Kamara - Last Filed: 07/06/19 09:30> Problem List (1) SVT (supraventricular tachycardia) Status: Acute (2) Atherosclerotic heart disease of [place] coronary artery without angina pectoris Status: Chronic Qualifiers: [place] vs. transplanted heart: [place] heart Qualified Code(s): I25.10 - Atherosclerotic heart disease of [place] coronary artery without angina pectoris Comment: Successful PTCA/JOSEFINA mid LAD with a 2.5 x 32 Promus Synergy, post dilated in proximal 2/3 with a 2.75 x 8 NC balloon, and flared at proximal stent with a 3.0 x 8 NC Balloon; 85%-->0%, no dissection. Successful PCI with PTCA to the balloon angioplasty only to ostium of DIAG#1 with a 2.0 x 12 balloon; 75%-->30%, no dissection. (3) Stented coronary artery Status: Chronic Comment: Successful PTCA/JOSEFINA mid LAD with a 2.5 x 32 Promus Synergy, post dilated in proximal 2/3 with a 2.75 x 8 NC balloon, and flared at proximal stent with a 3.0 x 8 NC Balloon; 85%-->0%, no dissection. Successful PCI with PTCA to the balloon angioplasty only to ostium of DIAG#1 with a 2.0 x 12 balloon; 75%-->30%, no dissection. (4) Chest tightness Status: Acute (5) Nonrheumatic mitral valve regurgitation Status: Chronic Comment: Mild 1+ per echo 06/15/17 @ [facility] (6) Nonrheumatic aortic (valve) stenosis Status: Chronic Comment: Moderately severe per echo 06/15/[address] Ontiveros [facility]: NADEGE 0.84 (7) Paroxysmal A-fib Status: Chronic (8) Hypertension Status: Chronic Qualifiers: Hypertension type: essential hypertension Qualified Code(s): I10 - Essential (primary) hypertension Reason for Consult Date of Consultation: 07/06/19 Reason for Consultation: SVT, chest pressure History of Present Illness: The patient is a 73 year old M who presented to [facility] Emergency Department on 07/06/2019 for palpitations. He has a past medical history of coronary artery disease status post stenting to his LAD and balloon angioplasty to the ostium of his diagonal in November 2018, thymus tumor resection with negative biopsy for malignancy or metastasis and pericarditis in 2015, spontaneous bilateral carotid dissections, moderate aortic valve stenosis, supraventricular tachycardia, paroxysmal atrial fibrillation, hypertension, hyperlipidemia, and obstructive sleep apnea. Patient presented to the Emergency Department for palpitations and a sense of heart racing for approximately 3 hours. He also noted substernal chest pressure. He did acknowledge being out of his flecainide for 3 days and took 1 of his 's dosages at 100 mg. In the Emergency Department his blood pressure initially was 114/69 and later noted to be systolic in the 80s. Due to his SVT, chest pressure, and hypotension, he underwent a cardioversion at 150 J, which was unsuccessful. He underwent a second cardioversion at 200 J which was also unsuccessful. He was given 6 mg of adenosine, which was also unsuccessful. He was given 12 mg of adenosine and converted to sinus rhythm. His troponin was negative. Electrolytes were noted to be normal. Chest x-ray is negative. On reevaluation his chest discomfort had resolved. Patient was admitted for observation given symptoms and recent ER treatment plan. Cardiology was consulted for further assistance. Past Medical History Allergies/Adverse Reactions: Allergies cefuroxime Allergy (Intermediate, Verified 07/06/19 03:37) Rash rosuvastatin [From Crestor] Adverse Reaction (Severe, Verified 07/06/19 03:37) severe myalgias lisinopril Adverse Reaction (Intermediate, Verified 07/06/19 03:37) didn't control bp well, labile cephalexin Adverse Reaction (Verified 07/06/19 03:37) Pain in joints levofloxacin [From Levaquin] Adverse Reaction (Verified 07/06/19 03:37) Unknown GENERALIZED ACHINESS Home Medications: Ambulatory Orders Medication Instructions Recorded Levothyroxine [Synthroid] 75 mcg PO DAILY 01/07/17 Multivitamin,Therapeutic [Thera] 1 ea PO DAILY 01/07/17 Ubidecarenone [Q-Sorb Co Q-10] 100 mg PO BID 08/13/17 Carvedilol [Coreg (Beta Jarret)] 6.25 mg PO BID #60 tab 08/14/17 aspirin 81 mg tablet,delayed 81 mg PO DAILY #30 tab 10/28/18 release rosuvastatin 5 mg tablet 5 mg PO DAILY 10/28/18 clopidogrel 75 mg tablet 75 mg PO DAILY #30 tab 11/12/18 warfarin 7.5 mg tablet 7.5 mg PO DAILY #1 tab 12/01/18 nitroglycerin 0.4 mg sublingual 0.4 mg SUBLINGUAL Q5-15M PRN #25 12/21/18 tablet tab amlodipine 5 mg tablet 2.5 mg PO DAILY tab 02/04/19 flecainide 50 mg tablet 50 mg PO Q12H #90 tab 06/09/19 lysine 500 mg tablet 500 mg PO DAILY 06/09/19 Past Medical History (Chronic Problems): Chronic Problems (Last Reviewed 06/09/19 @ 08:23 by Penny Hercules) Atherosclerotic heart disease of [place] coronary artery without angina pectoris (Chronic) Successful PTCA/JOSEFINA mid LAD with a 2.5 x 32 Promus Synergy, post dilated in proximal 2/3 with a 2.75 x 8 NC balloon, and flared at proximal stent with a 3.0 x 8 NC Balloon; 85%-->0%, no dissection. Successful PCI with PTCA to the balloon angioplasty only to ostium of DIAG#1 with a 2.0 x 12 balloon; 75%-->30%, no dissection. Stented coronary artery (Chronic 11/23/18) Successful PTCA/JOSEFINA mid LAD with a 2.5 x 32 Promus Synergy, post dilated in proximal 2/3 with a 2.75 x 8 NC balloon, and flared at proximal stent with a 3.0 x 8 NC Balloon; 85%-->0%, no dissection. Successful PCI with PTCA to the balloon angioplasty only to ostium of DIAG#1 with a 2.0 x 12 balloon; 75%-->30%, no dissection. H/O right and left heart catheterization (Chronic 11/12/18) Normal LV size, wall motion,and systolic function; Perserved Left Ventricular systolic function with normal EDP; LVEF: by LV gram 65 %; Single vessel CAD of the mid LAD; Non obstructive coronary arteries. Aortic Valve Stenosis- Mild; Right heart pressures - Normal; Aortic Valve Insufficiency Mild RECOMMENDATIONS: Staged percutaneous intervention vs. Surgical Intervention; DEVEN in 1-2 week to eval for AVR vs medical management followed by PCI to LAD. Restart lovenox on 11/14/2108. Start plavix 75mg po daily. Manual sheath removal. Hearing loss of left ear (Chronic) Since childhood Nonrheumatic mitral valve regurgitation (Chronic) Mild 1+ per echo 06/15/17 @ [facility] [place] Nonrheumatic aortic (valve) stenosis (Chronic) Moderately severe per echo 06/15/[address] Ontiveros [facility]: NADEGE 0.84 History of thymectomy (Chronic 04/23/17) Done @ [facility] per Dr. Ryan Quintanilla for anterior mediastinal mass, malignant Atelectasis (Chronic) Thymoma, malignant (Chronic) Hyperlipidemia (Chronic) Paroxysmal A-fib (Chronic) Pericarditis (Chronic) SERGO (obstructive sleep apnea) (Chronic) Carotid dissection, bilateral (Chronic 04/08/16) Spontaneous Hypothyroidism (Chronic) Hypertension (Chronic) Family history of cardiovascular disease (Chronic) Surgical History: appendectomy, herniorrhaphy - Right inguinal, total knee arthroplasty - He had a right total knee arthroplasty 2 years ago and had a left total knee arthroplasty 6 weeks ago., TURP - He is actually had 3 surgeries on his prostate., - - Thymectomy Psychiatric History: No pertinent psych hx - *Family History Paternal Family History: Family History (Last Reviewed 06/09/19 @ 08:23 by Penny Hercules) Unknown No problems noted. History Items: - - His father suddenly at the age of 75 and the patient does not know the cause. Sibling Family History: Family History (Last Reviewed 06/09/19 @ 08:23 by Penny Hercules) Unknown No problems noted. History Items: Heart Disease - He has a brother who is older than he has has had a stent in the past and his twin sister has had an ablation. Lives: With Family Smoking Status: Never smoker Tobacco Use: Non-smoker Alcohol: None Drugs: None Review of Systems - Review of Systems General: Reports: Fatigue. Denies: Fever, Malaise, Chills HEENT: Denies: Vision Change Cardiovascular: Denies: Chest Discomfort, Chest Discomfort at Rest, Chest Discomfort with Exertion, Chest Pressure, Chest Tightness, Chest Heaviness, Shortness of Breath, Shortness of Breath at Rest, Shortness of Breath with Exertion, Orthopnea, PND, Peripheral Edema, Palpitations, Lightheadedness, Dizziness, Near Syncope, Syncope Respiratory: Denies: Cough Neurological: Denies: Dizziness Subjectve: Patient seen and evaluated. He states feeling fatigued this morning. He denies any shortness of breath, chest pain, lightheadedness, dizziness, or palpitations. Patient states having episode of palpitations on day 07/03/2019. This lasted for approximately 10 minutes and resolved. He states he took his last flecainide on day 07/01/2019. He said 1 pill from pharmacy over the weekend. He then proceeded take 1 pill of his 's night 100 mg. Objective: Vital Signs Temp Pulse Resp BP Pulse Ox 98.0 F 55 L 18 116/72 95 07/06/19 06:50 07/06/19 07:14 07/06/19 06:50 07/06/19 06:50 07/06/19 06:50 Oxygen Flow Rate (L/min) [6] 15 Oxygen Flow Rate (L/min) [5] 15 Oxygen Flow Rate (L/min) [4] 15 Oxygen Flow Rate (L/min) [2] 15 Oxygen Flow Rate (L/min) [1 ( 15 Initial Baseline)] Oxygen Flow Rate (L/min) 2 Oxygen Delivery Method [6] Non-Rebreather Oxygen Delivery Method [5] Non-Rebreather Oxygen Delivery Method [4] Non-Rebreather Oxygen Delivery Method [3] Non-Rebreather Oxygen Delivery Method [2] Non-Rebreather Oxygen Delivery Method [1 ( Non-Rebreather Initial Baseline)] Oxygen Delivery Method Room Air Weight: 161 lb 6.054 oz Body Mass Index (BMI) 27.6 Finger Stick Blood Glucose 89 General: Healthy Appearing, Awake, Alert, Oriented x 3, Cooperative, No Acute Distress, Lethargic Oral: Moist Mucosa Neck: No JVD Lungs: Clear to auscultation Cardiovascular: Regular Rhythm, Normal S1, Normal S2 Murmur Murmur: Grade 2/6, Crescendo-Decrescendo, LLSB, RLSB Vascular: No Carotid Bruits Abdomen: Soft Extremities: No Cyanosis, No Clubbing, No edema, Normal Capillary Refill Neurological: No Focal Motor or Sensory Deficit Psych/Mental Status: Appropriate, Normal Affect 07/06/19 03:40: WBC 8.4, RBC 5.32, Hgb 16.2, Hct 49.1, MCV 92.3, MCH 30.5, MCHC 33.0, Plt Count 336, MPV 9.0, Immature Gran % (Auto) 0.400, Neut % (Auto) 64.2, Lymph % (Auto) 19.8, Mitchell % (Auto) 10.1 H, Eos % (Auto) 4.9, Baso % (Auto) 0.6, Absolute Neuts (auto) 5.4, Nucleated RBC % 0 07/06/19 03:40: PT 26.8 H, INR 2.5 07/06/19 03:40: Sodium 139, Potassium 3.9, Chloride 106, Carbon Dioxide 28.0, Anion Gap 5, BUN 20 H, Creatinine 0.92, Est GFR (MDRD) Af Amer 102, Est GFR (MDRD) Non-Af 85, BUN/Creatinine Ratio 21.6 H, Glucose 105, Calcium 9.0, Troponin I < 0.015 07/06/19 03:40: Magnesium 2.1, Troponin I Cancelled 07/06/19 07:42: Troponin I 0.113 H Rhythm: EKG: ECHO: 11/08/2018 Interpretation Summary The estimated ejection fraction is 65 %. Stage 1 diastolic dysfunction. Trivial tricuspid valve insufficiency. Right ventricular systolic pressure estimated to be 34 mmHg. At least moderate aortic stenosis; may be underestimated. Peak aortic valve gradient 40 mmHg. Mean aortic valve gradient 25 mmHg. Calculated aortic valve area (continuity equation) is 1.2 cm2. Compared to echo report dated 02/24/2013, LV function has remained the same, but aortic stenosis has gone from mild to at least moderate. Stress Test: 08/14/2017 Conclusion: Normal pharmacologic myocardial perfusion stress test. Preserved ejection fraction. Cardiac Cath: 11/12/2018 CONCLUSIONS Normal LV size, wall motion,and systolic function Perserved Left Ventricular systolic function with normal EDP LVEF: by LV gram 65 % Single vessel CAD of the mid LAD Non obstructive coronary arteries Aortic Valve Stenosis- Mild Right heart pressures - Normal Aortic Valve Insufficiency Mild RECOMMENDATIONS Staged percutaneous intervention vs. Surgical Intervention DEVEN in 1-2 week to eval for AVR vs medical management followed by PCI to LAD. Restart lovenox on 11/14/2108. Start plavix 75mg po daily. Manual sheath removal. CORONARY ANGIOGRAPHY DOMINANCE: Right Dominant LEFT HEART ASSESSMENT Left Ventricular Ejection Fraction: by LV Gram 65 % Normal LV wall motion Normal Left Ventricular systolic function RIGHT HEART ASSESSMENT Thermal CO: 5.23 Thermal CI: 2.92 Anusha CO: 5.97 Anusha CI: 3.34 PW: /7 5 PA: 27/8 15 RV: 28/0 4 RA: 7/4 2 PVR: 153 SVR: 1652 Mitral Valve Area: >3.50 Mitral Valve index: 1.96 Mitral Valve Mean Gradient: 10.5 Right Heart pressures - normal LEFT MAIN: Angiographically normal LEFT ANTERIOR DESCENDING ARTERY: PROX LAD: Mild luminal irregularities less than 30% MID LAD: 85 % Stenosis CIRCUMFLEX ARTERY: MID CIRC: Moderate luminal irregularities up to 50% RIGHT CORONARY ARTERY: Mild luminal irregularities less than 30% RT PDA: Proximal - Mild luminal irregularities VALVE FINDINGS: Aortic Valve Stenosis - mild Aortic Valve Insufficiency: Grade 1 AORTIC ROOT: Angiographically normal PCI: 11/23/2018 CONCLUSIONS Successful PTCA/JOSEFINA mid LAD with a 2.5 x 32 Promus Synergy, post dilated in proximal 2/3 with a 2.75 x 8 NC balloon, and flared at proximal stent with a 3.0 x 8 NC Balloon; 85%-->0%, no dissection. Successful PCI with PTCA to the balloon angioplasty only to ostium of DIAG#1 with a 2.0 x 12 balloon; 75%-->30%, no dissection. CT Surgery: Holter monitor: EPS: PPM: CXR: Chest CT Scan: Assessment/Plan 1. SVT/paroxysmal atrial fibrillation Patient underwent cardioversion x2 in the Emergency Department that were unsuccessful. He underwent adenosine 6 mg which was also unsuccessful. Patient converted to sinus rhythm after 12 mg adenosine IV. His telemetry this morning continues to show sinus rhythm/sinus bradycardia. At this time, he will continue current medical therapy which includes Coreg 6.25 mg p.o. twice daily and flecainide 50 mg p.o. twice daily. He will continue with Coumadin therapy. 2. Chest pain Patient did present to the Emergency Department with with chest pressure. This pain appeared to have resolved after conversion to sinus rhythm. He denies chest pressure this morning. His initial troponin was negative. Second upon was slightly elevated 0.113. It is very possible that his elevated troponin was due to recent cardioversion. However, given his history of coronary artery disease, he will undergo a medical nuclear stress test. If this is positive he may require heart catheterization for further assessment. 3. Atherosclerotic coronary artery disease He does have history of stenting in November 2018. His last stress test was noted to be in July 2017. As noted above, his elevated troponin is thought to be related to his cardioversions in the Emergency Department rather than an acute coronary event. However, given his coronary artery disease history and symptoms of vague short lasting chest pressure a few weeks ago, he will undergo a stress test to evaluate further. He denies any chest pain today. Based on results of his stress test, further recommendation will be made. 4. Valvular heart disease His last echocardiogram in October 2018 showed ejection of 65%, stage I diastolic dysfunction, structurally normal mitral valve, RVSP of 34 mmHg, moderate aortic valve stenosis with a peak aortic valve gradient 40 mmHg, mean aortic valve gradient 25 mmHg, and a calculated aortic valve area 1.2 cm?. At this time, he will continue current medical therapy. We will continue to monitor on an outpatient basis. 5. Hyperlipidemia He will continue current statin medication. This to be followed on outpatient basis. 6. Hypertension Patient's blood pressure is well-controlled. We will continue to monitor. We will not make any medication regimen changes. Patient's case was discussed and reviewed with Dr. Bermudez, who will also personally evaluate patient. Thank you for allowing us to participate in the patients plan of care, if you have any questions please do not hesitate to call. This note was generated using a voice recognition system and there may be incorrect words, spelling or punctuation that were not noted when reviewing the office note prior to saving. <Ryan Bermudez - Last Filed: 07/06/19 10:50> Problem List (1) Non-STEMI (non-ST elevated myocardial infarction) Status: Acute (2) SVT (supraventricular tachycardia) Status: Acute (3) Hypotension Status: Acute (4) Atherosclerotic heart disease of [place] coronary artery without angina pectoris Status: Chronic Qualifiers: [place] vs. transplanted heart: [place] heart Qualified Code(s): I25.10 - Atherosclerotic heart disease of [place] coronary artery without angina pectoris Comment: Successful PTCA/JOSEFINA mid LAD with a 2.5 x 32 Promus Synergy, post dilated in proximal 2/3 with a 2.75 x 8 NC balloon, and flared at proximal stent with a 3.0 x 8 NC Balloon; 85%-->0%, no dissection. Successful PCI with PTCA to the balloon angioplasty only to ostium of DIAG#1 with a 2.0 x 12 balloon; 75%-->30%, no dissection. (5) Stented coronary artery Status: Chronic Comment: Successful PTCA/JOSEFINA mid LAD with a 2.5 x 32 Promus Synergy, post dilated in proximal 2/3 with a 2.75 x 8 NC balloon, and flared at proximal stent with a 3.0 x 8 NC Balloon; 85%-->0%, no dissection. Successful PCI with PTCA to the balloon angioplasty only to ostium of DIAG#1 with a 2.0 x 12 balloon; 75%-->30%, no dissection. (6) H/O right and left heart catheterization Status: Chronic Comment: Normal LV size, wall motion,and systolic function; Perserved Left Ventricular systolic function with normal EDP; LVEF: by LV gram 65 %; Single vessel CAD of the mid LAD; Non obstructive coronary arteries. Aortic Valve Stenosis- Mild; Right heart pressures - Normal; Aortic Valve Insufficiency Mild RECOMMENDATIONS: Staged percutaneous intervention vs. Surgical Intervention; DEVEN in 1-2 week to eval for AVR vs medical management followed by PCI to LAD. Restart lovenox on 11/14/2108. Start plavix 75mg po daily. Manual sheath removal. (7) Chest tightness Status: Acute (8) SERGO (obstructive sleep apnea) Status: Chronic Reason for Consult History of Present Illness: The patient is a 73 year old M, current patient of mine as is his , with a history of supraventricular tachycardia and paroxysmal atrial fibrillation. The patient apparently ran out of his flecainide over the weekend, and went to go refill it on Thursday here at [facility], but unfortunately they did not have enough medication and he received 1 flecainide tablet on 07/04/2019. The patient was instructed to return the next day 07/05/2019 afternoon, for the remainder of his flecainide medication per the patient. Although the patient took his flecainide tablet on Thursday, he had no flecainide for the following day. At around 2 AM last evening he awoke with palpitations, and substernal chest pain. He took 100 mg of his 's flecainide, however this did not improve his symptoms and he presented to [facility] ER early this morning. At that time he was found to be in what appeared to be supraventricular tachycardia. The ER physician attempted to cardiovert him which was initially successful but then he reverted back to supraventricular tachycardia. I was then called about the patient's condition, and recommended we attempt to chemically cardiovert the patient with adenosine. The patient received 6 mg followed by 12 mg of adenosine which converted him to normal sinus rhythm. His electrolytes and initial troponin were negative however his second troponin was 0.113 and he was admitted to the PCU. Prior to this the patient denies any exertional chest pain, angina, shortness of breath or dyspnea on exertion. He did not complete cardiac rehab. EKG this morning shows normal sinus rhythm, left anterior hemiblock, no acute changes. Past Medical History - *Family History Paternal Family History: Family History (Last Reviewed 06/09/19 @ 08:23 by Penny Hercules) Unknown No problems noted. Sibling Family History: Family History (Last Reviewed 06/09/19 @ 08:23 by Penny Hercules) Unknown No problems noted. Review of Systems - Review of Systems General: Denies: Fever, Night Sweats, Fatigue Cardiovascular: Reports: Chest Discomfort at Rest, Palpitations. Denies: Chest Discomfort, Shortness of Breath, Orthopnea, PND, Peripheral Edema, Lightheadedness, Dizziness, Near Syncope, Syncope Respiratory: Denies: Cough, Sputum Production, Hemoptysis Gastrointestinal: Denies: Hematemesis, Hematochezia, Melena Genitourinary: Denies: Dysuria, Hematuria Skin: Denies: Rash Objective: Vital Signs Temp Pulse Resp BP Pulse Ox 98.0 F 55 L 18 116/72 95 07/06/19 06:50 07/06/19 07:14 07/06/19 06:50 07/06/19 06:50 07/06/19 06:50 Oxygen Flow Rate (L/min) [6] 15 Oxygen Flow Rate (L/min) [5] 15 Oxygen Flow Rate (L/min) [4] 15 Oxygen Flow Rate (L/min) [2] 15 Oxygen Flow Rate (L/min) [1 ( 15 Initial Baseline)] Oxygen Flow Rate (L/min) 2 Oxygen Delivery Method [6] Non-Rebreather Oxygen Delivery Method [5] Non-Rebreather Oxygen Delivery Method [4] Non-Rebreather Oxygen Delivery Method [3] Non-Rebreather Oxygen Delivery Method [2] Non-Rebreather Oxygen Delivery Method [1 ( Non-Rebreather Initial Baseline)] Oxygen Delivery Method Room Air Weight: 161 lb 6.054 oz Body Mass Index (BMI) 27.6 Finger Stick Blood Glucose 89 General: Awake, Alert, Oriented x 3 HEENT: PERRL, EOMI, Sclera Non Icteric Neck: Supple, Good ROM, No Lymph Node Enlargement Lungs: Clear to auscultation Cardiovascular: Regular Rhythm, Normal S1, Normal S2, No Murmurs, No Rubs, No Gallops 07/06/19 03:40: WBC 8.4, RBC 5.32, Hgb 16.2, Hct 49.1, MCV 92.3, MCH 30.5, MCHC 33.0, Plt Count 336, MPV 9.0, Immature Gran % (Auto) 0.400, Neut % (Auto) 64.2, Lymph % (Auto) 19.8, Mitchell % (Auto) 10.1 H, Eos % (Auto) 4.9, Baso % (Auto) 0.6, Absolute Neuts (auto) 5.4, Nucleated RBC % 0 07/06/19 03:40: PT 26.8 H, INR 2.5 07/06/19 03:40: Sodium 139, Potassium 3.9, Chloride 106, Carbon Dioxide 28.0, Anion Gap 5, BUN 20 H, Creatinine 0.92, Est GFR (MDRD) Af Amer 102, Est GFR (MDRD) Non-Af 85, BUN/Creatinine Ratio 21.6 H, Glucose 105, Calcium 9.0, Troponin I < 0.015 07/06/19 03:40: Magnesium 2.1, Troponin I Cancelled 07/06/19 07:42: Troponin I 0.113 H 07/06/19 10:02: Troponin I 0.152 H Rhythm: EKG: ECHO: Stress Test: Cardiac Cath: PCI: CT Surgery: Holter monitor: EPS: PPM: CXR: Chest CT Scan: Assessment/Plan Interventional cardiology attending addendum: The patient was seen and examined in conjunction with Roger kamara. Agree with the above. Please refer to my history and physical to describe the patient's most recent events. At this point the patient has known coronary occlusive disease and elective PCI and angioplasty of his LAD in November 2018. Given the patient's recurrent chest pain despite his SVT and mild troponin release, I believe it is reasonable to obtain a modified Hari treadmill echocardiogram to assess for possible anterior ischemia. If this is grossly abnormal, the patient may require a repeat diagnostic coronary angiogram. I do not believe his aortic stenosis is significant enough to disqualify him from modified Hari treadmill echocardiogram. He has had no sentinel events and tolerated his SVT rather well. In addition I would recommend the patient never run out of his flecainide, and advised him to fill his prescription prior to completely running out of his flecainide medication. In addition I went to the pharmacy here at [facility] to explain what happened to the patient and put a note in his computer chart that he may fill his prescription prior to its termination. The patient be resumed on flecainide 50 mg p.o. twice daily as well as his carvedilol. If his stress test is negative he may be discharged home. Thank you very much for the opportunity to participate in the cardiac care of your patient. Consultation time took place between 10 AM and 10:50 AM. Code Visit Inpatient E&M: 40344 Init Hosp L2
--- NOTE | 2019-07-06 10:14 | STE_ITS ---
Reason For Study: CHEST PAIN Stress Results Protocol: MODIFIED MONIKA Maximum Predicted HR: 145 bpm Target HR: 123 bpm % Maximum Predicted HR: 69 % DurationHeart Rate Stage (mm:ss) (bpm) BP BASELINE 53 120/74 STAGE 0 3:00 86 140/80 STAGE 1/2 3:00 86 152/84 STAGE 1 3:00 92 152/84 STAGE 2 1:20 100 / RECOVERY 63 120/74 Stress Duration: 10:20 mm:ss Maximum Stress HR: 100 bpm Baseline Echocardiogram Findings The estimated ejection fraction is 65 %. Stress Echo Wall motion Data Resting WM Intermediate WM Stress WM Resting Wall Motion Wall Motion Stress No regional wall motion No regional wall motion abnormalities noted. abnormalities noted. EKG Data The baseline ECG displays normal sinus rhythm. The patient exercised according to the regular Monika protocol for a total duration of 4:21. The maximum heart rate attained was 100 beats per minute. This was 68% of maximum predicted heart rate. The patient exercised into stage 2 of the Monika protocol. During stress, there were no ST or T wave changes noted to suggest ischemia. No clinical angina was noted. Interpretation Summary The estimated ejection fraction is 65 %. Normal, adequate, treadmill echocardiogram. Negative for ischemia by EKG and echocardiographic criteria. No anginal symptoms noted. Rare PVC noted. Appropriate blood pressure response to exercise. Although patient did not reach target heart rate, his rate pressure product of 13,984 demonstrated an adequate test. All love contracted normally at peak exercise. Test terminated due to fatigue. Final LVEF is 75%. No complications. Ordering Physician: Ryan Bermudez Referring Physician: Ryan Bermudez MD Performed By: Padmaja Clemente RDCS
--- NOTE | 2019-07-06 11:35 | CASEMGMT ---
RN MISTY SYSTEMS TESTER CM to room to meet with patient for initial transition planning/care coordination assessment. JESSICA JAY introduced self and role at [facility]. Pt voices understanding and consents to assessment at this time. Pt resting in bed in no distress at this time. Pt's twin sister @ [place] and pt agreeable to her staying during assessment. Pt is A/O at this time and answers all questions appropriately. Care providers, pharmacy, and demographics verified/updated at this time. PCP: Dr Tapan Cornelius Specialists: Dr Ryan Quintanilla @ [facility] (Hx of Hymectomy) Dr Varma--@ [facility], vascular. Dr Bermudez--cardiology Preferred Pharmacy: [facility] Retail Insurance: [employer] MCR Prescription Benefit: Yes Living Will/HPOA: Has both LW and Healthcare POA, who is his , Trina Schaeffer. Copies not on file @ [facility] and pt is aware. LNOK: , Trina (who is a retired Surgical nurse). 3 sons and 2 daughters Living Arrangements: Lives with his in 2-story home. Denies issues with stairs. Independent. Transportation: Pt states drives self and states no transportation concerns at this time. also drives. DME: Denies using any DME and denies needs. H/P states pt has a CPAP, but pt states he does not have a CPAP and states, I never will. HHC/SNF: No history of either. Pt wishes to return home and states has no concerns with going home at time of discharge. CM to follow for any discharge planning/needs. Pt voices no concerns/needs at this time. Advised pt to ask for CM if any further questions/concerns/needs arise. Voices understanding. PLAN: Home. Erin HERNÁNDEZ RN, CM
--- NOTE | 2019-07-06 14:35 | DCINST_ITS ---
- Discharge Diagnoses Current Active Problems: Current Active and Chronic Problems (Last Reviewed 06/09/19 @ 08:23 by Penny Hercules) SVT (supraventricular tachycardia) (Acute) Sustained SVT (Acute) Hypotension (Acute) Non-STEMI (non-ST elevated myocardial infarction) (Acute) You will use the following diet at home:: Cardiac Your food should be the consistency of: Regular Discharge Activity: May Not Drive - for arrthymia Call your doctor if you observe: Fever of 101 or Higher, Coldness, Increased Pain, Inability to urinate, Inability to have a bowel movement, Shortness of breath, Dizziness, Fainting spells, Swelling in the ankles, Chest pain, Prolonged hiccoughing, Increased palpitations (irregular heartbeat), Calf discomfort, Uncontrolled pain Allergies/Adverse Reactions: Allergies cefuroxime Allergy (Intermediate, Verified 07/06/19 03:37) Rash rosuvastatin [From Crestor] Adverse Reaction (Severe, Verified 07/06/19 03:37) severe myalgias lisinopril Adverse Reaction (Intermediate, Verified 07/06/19 03:37) didn't control bp well, labile cephalexin Adverse Reaction (Verified 07/06/19 03:37) Pain in joints levofloxacin [From Levaquin] Adverse Reaction (Verified 07/06/19 03:37) Unknown GENERALIZED ACHINESS Medications to take at Discharge Levothyroxine [Synthroid] 75 mcg PO DAILY 01/07/17 Multivitamin,Therapeutic [Thera] 1 ea PO DAILY 01/07/17 Ubidecarenone [Q-Sorb Co Q-10] 100 mg PO BID 08/13/17 Carvedilol [Coreg (Beta Jarret)] 6.25 mg PO BID #60 tab 08/14/17 aspirin 81 mg tablet,delayed release 81 mg PO DAILY #30 tab 10/28/18 rosuvastatin 5 mg tablet 5 mg PO DAILY 10/28/18 clopidogrel 75 mg tablet 75 mg PO DAILY #30 tab 11/12/18 warfarin 7.5 mg tablet 7.5 mg PO DAILY #1 tab 12/01/18 nitroglycerin 0.4 mg sublingual tablet 0.4 mg SUBLINGUAL Q5-15M PRN #25 tab 12/21/18 amlodipine 5 mg tablet 2.5 mg PO DAILY tab 02/04/19 flecainide 50 mg tablet 50 mg PO Q12H #90 tab 06/09/19 lysine 500 mg tablet 500 mg PO DAILY 06/09/19 Primary Care Physician: Tapan Cornelius MD [Primary Care Provider] - Please follow up with your Primary Care Physician in: in 2 weeks Test Results: Test results from this visit will be discussed in further detail at your follow- up appointment, if applicable. Please Follow Up With: Ryan Bermudez MD When: in 3-4 weeks
--- NOTE | 2019-07-06 14:36 | DS.PCM_ITS ---
Discharge Date and Diagnosis - Problem List Patient Problems: Active and Suspected Problems (Last Reviewed 06/09/19 @ 08:23 by Penny Hercules) SVT (supraventricular tachycardia) (Acute) Sustained SVT (Acute) Hypotension (Acute) Non-STEMI (non-ST elevated myocardial infarction) (Acute) Date of Admission: 07/06/19 Date of Discharge: 07/06/19 - Primary Discharge Diagnosis Active and Suspected Problems (Last Reviewed 06/09/19 @ 08:23 by Penny Hercules) SVT (supraventricular tachycardia) (Acute) Sustained SVT (Acute) Hypotension (Acute) Non-STEMI (non-ST elevated myocardial infarction) (Acute) - Secondary Discharge Diagnosis Chronic Problems (Last Reviewed 06/09/19 @ 08:23 by Penny Hercules) Atherosclerotic heart disease of [place] coronary artery without angina pectoris (Chronic) Successful PTCA/JOSEFINA mid LAD with a 2.5 x 32 Promus Synergy, post dilated in proximal 2/3 with a 2.75 x 8 NC balloon, and flared at proximal stent with a 3.0 x 8 NC Balloon; 85%-->0%, no dissection. Successful PCI with PTCA to the balloon angioplasty only to ostium of DIAG#1 with a 2.0 x 12 balloon; 75%-->30%, no dissection. Stented coronary artery (Chronic 11/23/18) Successful PTCA/JOSEFINA mid LAD with a 2.5 x 32 Promus Synergy, post dilated in proximal 2/3 with a 2.75 x 8 NC balloon, and flared at proximal stent with a 3.0 x 8 NC Balloon; 85%-->0%, no dissection. Successful PCI with PTCA to the balloon angioplasty only to ostium of DIAG#1 with a 2.0 x 12 balloon; 75%-->30%, no dissection. H/O right and left heart catheterization (Chronic 11/12/18) Normal LV size, wall motion,and systolic function; Perserved Left Ventricular systolic function with normal EDP; LVEF: by LV gram 65 %; Single vessel CAD of the mid LAD; Non obstructive coronary arteries. Aortic Valve Stenosis- Mild; Right heart pressures - Normal; Aortic Valve Insufficiency Mild RECOMMENDATIONS: Staged percutaneous intervention vs. Surgical Intervention; DEVEN in 1-2 week to eval for AVR vs medical management followed by PCI to LAD. Restart lovenox on 11/14/2108. Start plavix 75mg po daily. Manual sheath removal. Hearing loss of left ear (Chronic) Since childhood Nonrheumatic mitral valve regurgitation (Chronic) Mild 1+ per echo 06/15/17 @ [facility] Nonrheumatic aortic (valve) stenosis (Chronic) Moderately severe per echo 06/15/[address] Ontiveros [facility]: NADEGE 0.84 History of thymectomy (Chronic 04/23/17) Done @ [facility] per Dr. Ryan Quintanilla for anterior mediastinal mass, malignant Atelectasis (Chronic) Thymoma, malignant (Chronic) Hyperlipidemia (Chronic) Paroxysmal A-fib (Chronic) Pericarditis (Chronic) SERGO (obstructive sleep apnea) (Chronic) Carotid dissection, bilateral (Chronic 04/08/16) Spontaneous Hypothyroidism (Chronic) Hypertension (Chronic) Family history of cardiovascular disease (Chronic) Hospital Course and Treatment Imaging Results: 07/06/19 10:14 Stress Test Echo w/o Contrast [ECHO] Routine Operations: None Summary of Care Provided: The patient is a 73 year old M with history of coronary artery disease status post LAD stent and balloon angioplasty November 2018 pericarditis in 2014 after thymus tumor resection with negative biopsy for malignancy moderate aortic stenosis and arrhythmia was admitted with palpitation. Patient had palpitation for about 3 hours along with dizziness, near syncope, near fainting along with substernal chest pressure. He did not take flecainide for 3 days. Patient denies syncope. In ER, he underwent cardioversion at 150 J was unsuccessful then 200 J joules unsuccessfully. He then converted to sinus rhythm after 12 mg of adenosine. Telemetry rhythm reviewed. It was SVT and then dropped QRS dropped/heart block probably secondary to IV adenosine Then patient was admitted in PCU and filter pulp washer consulted. Slight increase in troponin mostly secondary to DC cardioversion. Electrolytes within normal limit. K3.9, magnesium 2.1. TSH 3.79, free T4 normal. Thereafter, patient had modified Hari protocol treadmill stress echo. It is reported normal, adequate treadmill echo, negative for ischemia by EKG and echocardiographic criteria. Anginal symptoms. Adequate blood pressure and acceptable heart rate response. Patient has 3 refills of flecainide. Advised to continue flecainide and carvedilol. Patient other comorbidities include coronary artery disease status post PCI in November 2018, hypertension, dyslipidemia, hypothyroidism, moderate aortic stenosis and history of carotid dissection. Obstructive sleep apnea on CPAP. Patient on Coumadin. INR therapeutic Discharge medication reconciliation done. Discharge follow-up instructions completed. Discharge process discussed with the patient and all questions were answered to patient's satisfaction. Patient was admitted as inpatient but was discharged because of sooner recovery than expected. Total time spent, exact 35 minutes on discharge meds reconciliation, examinat ion, coordination of care with nurses and ancillary staff, review of imaging and blood test and discussion with the patient on follow-up instructions Patient Problems: Active and Suspected Problems (Last Reviewed 06/09/19 @ 08:23 by Penny Hercules) SVT (supraventricular tachycardia) (Acute) Sustained SVT (Acute) Hypotension (Acute) Non-STEMI (non-ST elevated myocardial infarction) (Acute) Subjective: Seen and examined. Telemetry reviewed. Patient admitted with SVT, and was hemodynamically unstable with low blood pressure. Patient had DC shock but is still was in SVT therefore adenosine was tried. Prior to the second dose, he converted to sinus rhythm. Patient also had dropped QRS complex for about 19 beats most likely after adenosine. Currently, in sinus rhythm heart rate in 50s. - Physical Exam Vitals/I&O's: Vital Signs Temp Pulse Resp BP Pulse Ox 98.0 F 54 L 15 108/61 94 07/06/19 12:38 07/06/19 12:38 07/06/19 12:38 07/06/19 12:38 07/06/19 12:38 Oxygen Flow Rate (L/min) [6] 15 Oxygen Flow Rate (L/min) [5] 15 Oxygen Flow Rate (L/min) [4] 15 Oxygen Flow Rate (L/min) [2] 15 Oxygen Flow Rate (L/min) [1 ( 15 Initial Baseline)] Oxygen Flow Rate (L/min) 2 Oxygen Delivery Method [6] Non-Rebreather Oxygen Delivery Method [5] Non-Rebreather Oxygen Delivery Method [4] Non-Rebreather Oxygen Delivery Method [3] Non-Rebreather Oxygen Delivery Method [2] Non-Rebreather Oxygen Delivery Method [1 ( Non-Rebreather Initial Baseline)] Oxygen Delivery Method Room Air Weight: 161 lb 6.054 oz Body Mass Index (BMI) 27.6 Finger Stick Blood Glucose 89 Intake and Output for Last 24 Hours 07/04/19 07/05/19 07/06/19 23:59 23:59 23:59 Intake Total 886.67 / 886.67 Balance 886.67 / 886.67 General: Alert, Oriented x3, Cooperative HEENT: Atraumatic, PERRLA, EOMI, Normocephalic Neck: Supple, No JVD, Negative Carotid Bruits Lungs: Clear to auscultation, Normal air movement, No rhonchi, No wheeze, No rales Cardiovascular: Regular rate, Regular Rhythm, Normal S1, Normal S2, Bradycardic, Murmur - Ejection systolic murmur present over right second intercostal space and left lower sternal border. Abdomen: Bowel Sounds Present, Soft, Non Tender, Non-Distended Extremities: No edema, Capillary Refill Less than 3 Seconds Skin: No rashes, No breakdown Musculoskeletal: No Tenderness to Palpation of Joints or Extremities, Arthritic Changes Neurological: Cranial nerves II-XII grossly intact Psych/Mental Status: Normal Affect, Appropriate Laboratory Results 07/06/19 03:40: WBC 8.4, RBC 5.32, Hgb 16.2, Hct 49.1, MCV 92.3, MCH 30.5, MCHC 33.0, RDW Std Deviation 48.5 H, RDW Coeff of Eddie 14.3, Plt Count 336, MPV 9.0, Immature Gran % (Auto) 0.400, Neut % (Auto) 64.2, Lymph % (Auto) 19.8, [place] % (Auto) 10.1 H, Eos % (Auto) 4.9, Baso % (Auto) 0.6, Absolute Neuts (auto) 5.4, Absolute Lymphs (auto) 1.67, Nucleated RBC % 0 07/06/19 03:40: PT 26.8 H, INR 2.5 07/06/19 03:40: Sodium 139, Potassium 3.9, Chloride 106, Carbon Dioxide 28.0, Anion Gap 5, BUN 20 H, Creatinine 0.92, Estim Creat Clear Calc 58.09, Est GFR (MDRD) Af Amer 102, Est GFR (MDRD) Non-Af 85, BUN/Creatinine Ratio 21.6 H, Glucose 105, Calcium 9.0, Troponin I < 0.015 07/06/19 03:40: Magnesium 2.1, Troponin I Cancelled, TSH 3.79 H, Free T4 0.98 07/06/19 07:42: Troponin I 0.113 H 07/06/19 10:02: Troponin I 0.152 H Current Medications Acetaminophen (Tylenol) 650 mg PO Q6H PRN PRN PRN Reason: Pain Score 1-10/Temp > 100.7 F Al Hydroxide/Mg Hydroxide (Mylanta Ii) 30 ml PO Q6H PRN PRN PRN Reason: Gastric Burning Albuterol Sulfate (Ventolin Aerosols) 2.5 mg INHALATION Q2H PRN PRN PRN Reason: SOB/Wheezing Amlodipine Besylate (Norvasc) 2.5 mg PO DAILY [facility] Last Admin: 07/06/19 08:07 Dose: 2.5 mg Documented by: Aspirin (Ecotrin) 81 mg PO DAILY@0800 [facility] Last Admin: 07/06/19 08:07 Dose: 81 mg Documented by: Atorvastatin Calcium (Lipitor) 10 mg PO QHS [facility] Carvedilol (Coreg) 6.25 mg PO BID [facility] Clopidogrel Bisulfate (Plavix) 75 mg PO DAILY [facility] Last Admin: 07/06/19 08:07 Dose: 75 mg Documented by: Famotidine (Pepcid) 20 mg PO BID [facility] Last Admin: 07/06/19 08:08 Dose: 20 mg Documented by: Flecainide Acetate (Tambocor) 50 mg PO Q12H [facility] Last Admin: 07/06/19 08:08 Dose: 50 mg Documented by: Glucagon () 1 mg IM .X1 PRN PRN Reason: Hypoglycemia Guaifenesin (Robitussin) 20 ml PO Q4H PRN PRN PRN Reason: COUGH Sodium Chloride () 250 mls @ 15 mls/hr IV .[id number] PRN PRN Reason: Saline Flush Sodium Chloride () 250 mls @ 15 mls/hr IV .[id number] PRN PRN Reason: Additional IVPB Infusion Sodium Chloride () 1,000 mls @ 100 mls/hr IV .Q10H [facility] Stop: 07/06/19 17:24 Last Infusion: 07/06/19 12:55 Dose: 0 mls/hr Documented by: Dextrose (Dextrose 10%-Water) 250 mls @ 999 mls/hr IV .Q16M PRN; Protocol PRN Reason: HYPOGLYCEMIA Levothyroxine Sodium (Synthroid) 75 mcg PO DAILY@0600 [facility] Last Admin: 07/06/19 08:09 Dose: Not Given Documented by: Magnesium Hydroxide (Milk Of Magnesia) 30 ml PO DAILY PRN PRN PRN Reason: Constipation Melatonin (Melatonin) 3 mg PO QHS PRN PRN PRN Reason: INSOMNIA Morphine Sulfate () 2 mg IV Q3H PRN PRN PRN Reason: Pain Score 6-10/10 Nitroglycerin (Nitrostat) 0.4 mg SUBLINGUAL Q5M PRN PRN Reason: CARDIAC/CHEST PAIN Ondansetron HCl (Zofran) 4 mg IV Q8H PRN PRN PRN Reason: NAUSEA/VOMITING Oxycodone HCl (Oxyir) 5 mg PO Q4H PRN PRN PRN Reason: Pain Score 4-5/10 Prochlorperazine Edisylate (Compazine Iv) 5 mg IV Q4H PRN PRN PRN Reason: Breakthrough Nausea/Vomiting Psyllium Hydrophilic Mucilloid (Metamucil) 1 packet PO DAILY PRN PRN PRN Reason: Constipation Senna/Docusate Sodium (Senokot-S, Michelle-Colace) 2 tablet PO BID PRN PRN PRN Reason: Constipation Sodium Chloride () 10 - 40 ml IV UD PRN PRN Reason: SALINE FLUSH Last Admin: 07/06/19 08:03 Dose: 10 ml Documented by: Throat Lozenges (Cepacol Sore Throat Lozenge) 1 lozenge MUCOUS MEM Q2H PRN PRN PRN Reason: SORE THROAT Warfarin Sodium (Coumadin (Pbkc)) 7.5 mg PO DAILY@1700 [facility] Discharge Activity: May Not Drive - for arrthymia Call your doctor if you observe: Fever of 101 or Higher, Coldness, Increased Pain, Inability to urinate, Inability to have a bowel movement, Shortness of breath, Dizziness, Fainting spells, Swelling in the ankles, Chest pain, Prolonge d hiccoughing, Increased palpitations (irregular heartbeat), Calf discomfort, Uncontrolled pain Home Medications: Medications to take at Discharge Levothyroxine [Synthroid] 75 mcg PO DAILY 01/07/17 Multivitamin,Therapeutic [Thera] 1 ea PO DAILY 01/07/17 Ubidecarenone [Q-Sorb Co Q-10] 100 mg PO BID 08/13/17 Carvedilol [Coreg (Beta Jarret)] 6.25 mg PO BID #60 tab 08/14/17 aspirin 81 mg tablet,delayed release 81 mg PO DAILY #30 tab 10/28/18 rosuvastatin 5 mg tablet 5 mg PO DAILY 10/28/18 clopidogrel 75 mg tablet 75 mg PO DAILY #30 tab 11/12/18 warfarin 7.5 mg tablet 7.5 mg PO DAILY #1 tab 12/01/18 nitroglycerin 0.4 mg sublingual tablet 0.4 mg SUBLINGUAL Q5-15M PRN #25 tab 12/21/18 amlodipine 5 mg tablet 2.5 mg PO DAILY tab 02/04/19 flecainide 50 mg tablet 50 mg PO Q12H #90 tab 06/09/19 lysine 500 mg tablet 500 mg PO DAILY 06/09/19 Primary Care Physician: Tapan Cornelius MD [Primary Care Provider] - Please follow up with your Primary Care Physician in: in 2 weeks Please Follow Up With: Ryan Bermudez MD When: in 3-4 weeks Medical Necessity - Tobacco Use Smoking Status: Never smoker Tobacco Use: Non-smoker Meaningful Use Info Meaningful Use Diagnoses (Choose all that apply): None applicable Code Visit Inpatient E&M: 34268 Disch Hosp
--- NOTE | 2019-07-06 14:47 | PHA.DC.MR ---
Pharmacy Service has performed discharge medication reconciliation for this patient. The patient's discharge medication list was reviewed for discrepancies and discrepancies were resolved. Home Medications Levothyroxine [Synthroid] 75 mcg PO DAILY 01/07/17 Multivitamin,Therapeutic [Thera] 1 ea PO DAILY 01/07/17 Ubidecarenone [Q-Sorb Co Q-10] 100 mg PO BID 08/13/17 Carvedilol [Coreg (Beta Jarret)] 6.25 mg PO BID #60 tab 08/14/17 aspirin 81 mg tablet,delayed release 81 mg PO DAILY #30 tab 10/28/18 rosuvastatin 5 mg tablet 5 mg PO DAILY 10/28/18 clopidogrel 75 mg tablet 75 mg PO DAILY #30 tab 11/12/18 warfarin 7.5 mg tablet 7.5 mg PO DAILY #1 tab 12/01/18 nitroglycerin 0.4 mg sublingual tablet 0.4 mg SUBLINGUAL Q5-15M PRN #25 tab 12/21/18 amlodipine 5 mg tablet 2.5 mg PO DAILY tab 02/04/19 flecainide 50 mg tablet 50 mg PO Q12H #90 tab 06/09/19 lysine 500 mg tablet 500 mg PO DAILY 06/09/19
== END 2019-07-06 15:36 | disposition home or self-care (01) | DRG 310 ==
LOC: ED 06:10 → PCU 06:29
PROVIDERS: Admitting Provider Family Medicine; Emergency Provider Emergency Medicine; PCP Family Medicine; Visit Provider Internal Medicine
DX: I47.1 Supraventricular tachycardia (principal); I25.10 Atherosclerotic heart disease of native coronary artery without angina pectoris; E78.5 Hyperlipidemia, unspecified; E03.9 Hypothyroidism, unspecified; I10 Essential (primary) hypertension; G47.33 Obstructive sleep apnea (adult) (pediatric); H91.92 Unspecified hearing loss, left ear; I95.9 Hypotension, unspecified; I48.0 Paroxysmal atrial fibrillation; Z79.02 Long term (current) use of antithrombotics/antiplatelets; Z79.82 Long term (current) use of aspirin; Z79.01 Long term (current) use of anticoagulants; Z95.5 Presence of coronary angioplasty implant and graft; I35.0 Nonrheumatic aortic (valve) stenosis; I34.0 Nonrheumatic mitral (valve) insufficiency
CPT/HCPCS: 36415; 71045; 80048; 83735; 84439; 84443; 84484; 85025; 85610; 92960; 93005; 93017; 93350; 99152; 99251; 99285; J7030; A4216; G0463; J0153

== ENCOUNTER 2019-11-19 09:29 | Emergency (ER) | payer MEDICARE, OTHER, SELFPAY ==
[2017-05-20 14:31] VITALS: BMI 25.0
[2019-08-05 13:28] VITALS: BMI 27.4
[2019-11-19 09:30] VITALS: BP 155/87; PULSE 65; RESP 17; TEMP 36.3; O2SAT 95; BMI 25.0
--- NOTE | 2019-11-19 09:53 | ED.VIS.GEN ---
History of Present Illness Informant: Patient, Significant Other Onset: Days - 2 days Context: Gradual Onset Timing: Continuous Quality: bloody, blood clots Location: urine Current Severity: Severe Maximum Severity: Severe Worsened by: urination Relieved by: nothing Associated Symptoms: Urge incontinence Narrative: 73-year-old male presents to the emergency department with hematuria, passing clots and some urge incontinence. He has had this problem in the past and he follows with Dr. Briones. He is on warfarin for history of a carotid dissection. He is also on aspirin. For 2 days he has been passing blood and clots and has had some urge incontinence. He often feels like he does not able to fully empty his bladder. He gets severe discomfort suprapubic. He denies any other symptoms of bleeding. He denies dysuria. He denies any lightheadedness or dizziness. Prior similar symptoms: Yes Recent Illness/Hospitalization: No <César Urena - Last Filed: 11/19/19 13:07> <Marie Delarosa - Last Filed: 11/19/19 23:49> Chief Complaint: Complaint Past Medical History Prior records reviewed: Yes Past Medical History: - - Carotid artery dissection hypertension hyperlipidemia Surgical History: appendectomy, herniorrhaphy - Right inguinal, total knee arthroplasty - He had a right total knee arthroplasty 2 years ago and had a left total knee arthroplasty 6 weeks ago., TURP - He is actually had 3 surgeries on his prostate., - - Thymectomy Lives: With Family Smoking Status: Never smoker Alcohol: None Drugs: None - Family History Paternal Family History: Family History (Last Reviewed 08/05/19 @ 13:28 by Penny Hercules) Unknown No problems noted. Family History: Reports: - - His father suddenly at the age of 75 and the patient does not know the cause. Sibling Family History: Family History (Last Reviewed 08/05/19 @ 13:28 by Penny Hercules) Unknown No problems noted. Family History: Reports: Heart Disease - He has a brother who is older than he has has had a stent in the past and his twin sister has had an ablation. <César Urena - Last Filed: 11/19/19 13:07> - Family History Paternal Family History: Family History (Last Reviewed 08/05/19 @ 13:28 by Penny Hercules) Unknown No problems noted. Sibling Family History: Family History (Last Reviewed 08/05/19 @ 13:28 by Penny Hercules) Unknown No problems noted. <Melonie Delarosason - Last Filed: 11/19/19 23:49> - Allergies and Home Meds Allergies/Adverse Reactions: Allergies cefuroxime Allergy (Intermediate, Verified 11/19/19 09:30) Rash rosuvastatin [From Crestor] Adverse Reaction (Severe, Verified 11/19/19 09:30) severe myalgias lisinopril Adverse Reaction (Intermediate, Verified 11/19/19 09:30) didn't control bp well, labile cephalexin Adverse Reaction (Verified 11/19/19 09:30) Pain in joints levofloxacin [From Levaquin] Adverse Reaction (Verified 11/19/19 09:30) Unknown GENERALIZED ACHINESS Primary Care Physician: Devon Briones MD [STAFF PHYSICIAN] - 2 Days Tapan Cornelius MD [Primary Care Provider] - Review of Systems All systems negative except as indicated General: Denies: Chills, Fever, Sweats Eyes: Denies: Visual changes - bilaterally, Diplopia ENT: Denies: Rhinorrhea, Sore throat Cardiovascular: Denies: Chest pain, Palpitations Respiratory: Denies: Dyspnea, Cough, Dyspnea on exertion Gastrointestinal: Denies: Abdominal pain, Nausea, Vomiting, Diarrhea, Melena, Hematochezia Genitourinary: Reports: Hematuria, Frequency. Denies: Dysuria Musculoskeletal: Denies: Myalgias, Arthralgias, Neck pain, Back pain, Extremity Pain Skin: Denies: Rash, Abscess, Abrasions, Wounds Neurological: Denies: Headache, Weakness, Numbness Hematologic: Denies: Easy bruising, Easy bleeding <César Urena - Last Filed: 11/19/19 13:07> Physical Exam Vital Signs/Narrative: Vital Signs Temp Pulse Resp BP Pulse Ox 11/19/19 09:30 97.4 F L 65 17 155/87 H 95 Inital Vital Signs reviewed: Yes General: Well nourished, Well developed, No Acute Distress Head: Normocephalic, Atraumatic Eyes: Perrl, EOMI ENT: Moist mucous membranes, No rhinorrhea Neck: Supple, Nontender Cardiovascular: Regular rate, Regular rhythm, No murmurs Respiratory: No distress, CTA bilaterally, Chest nontender Abdomen: Soft, Nontender, Nondistended, Normal bowel sounds : - - Normal inspection of the penis and scrotum. No swelling or bruising signs of trauma or infection. Back: Nontender, Normal Inspection Extremities: Nontender, No edema Skin: Normal color, No rash Neurological: Alert, Oriented x3, Cranial nerves II-XII grossly intact, Normal Strength, Normal Sensation Psychological: Normal affect, Normal Mood <César Urena - Last Filed: 11/19/19 13:07> Diagnostic/Tx/Re-eval - Medical Decision Making We spoke with on-call urology recommended bladder scan and if retaining Espinoza catheter with irrigation. Bladder scan showed nearly 300 cc of urine. Espinoza catheter was placed. It was irrigated until clear. There are no clots noted or further bleeding. His INR is therapeutic at 2.7. The rest of his labs are unremarkable. Again spoke with on-call urology Dr. Briones, mended discharging with Espinoza catheter in place with leg bag and follow-up on Thursday in his office or return for worsening bleeding. Patient and are agreeable with plan. Return precautions discussed. Will continue medications as prescribed. Discharged - Critical Care Time Critical care time (excluding procedures): Discussing w/Consultants <César Urena - Last Filed: 11/19/19 13:07> - Medical Decision Making I have personally performed a face to face assessment and have reviewed the MAINTENANCE ASSOCIATE/PA note. My pang findings include 73 year old male presenting with hematuria, on coumadin. Espinoza catheter placed and irrgated until clear. INR therapeutic. Discussed with urology and patient will follow up as an outpatient. Advised to return to the ED for worsening bleeding. <Marie Delarosa - Last Filed: 11/19/19 23:49> ED Disposition <César Urena - Last Filed: 11/19/19 13:07> <Marie Delarosa - Last Filed: 11/19/19 23:49> - Plan for ED Patient: Disposition: Home or Assisted Living Diagnosis: Urinary retention, Hematuria, therapeutic inr Instructions: ED Espinoza Catheter Care, ED Hematuria, ED Urinary Retention Male Referrals: Tapan Cornelius MD [Primary Care Provider] - Devon Briones MD [STAFF PHYSICIAN] - 2 Days
[2019-11-19 10:32] LABS: Bacteria 0 SEEN /hpf (None Seen); Mucous, Urine 0 SEEN /hpf (<or=2+); Squamous Epithelial Cells - UA 0 SEEN /hpf (0-5); White Blood Cells 0 SEEN /hpf (0-5)
[2019-11-19 10:39] LABS: Color, Urine Red (Yellow); Glucose, Dipstick Normal (Normal); Ketone-Dipstick 5 mg/dl (Negative); Leukocyte Esterase-Dipstick Negative /ul (Negative); Nitrite-Dipstick Negative (Negative); Occult Blood-Urine 250 /ul (Negative); Protein-Dipstick 500 mg/dl (Negative); Specific Gravity, Urine 1.015 (1.002-1.030); Urine Bilirubin Dipstick Negative (Negative); Urine Clarity Turbid (Clear); Urine Urobilinogen Normal (Normal)
[2019-11-19 10:59] LABS: Absolute Lymphocyte Count 0.95 X10^3/uL (0.83-4.51); Basophil# 0.03 X10^3/uL; Basophil% 0.3 % (0-1); Eosinophil# 0.09 X10^3/uL; Eosinophils% 0.9 % (0-5); Hematocrit 44.2 % (40-54); Hemoglobin 14.6 g/dL (13.0-16.5); Lymphocyte # 0.95 X10^3/ul (4.0); Lymphocyte % 9.8 % (19-41); Mean Corpuscular Hgb 30.7 pg (27.0-32.0); Mean Corpuscular Volume 93.1 fL (80-94); Mean Platelet Vol. 8.9 fl (6.2-12.0); Monocyte# 0.55 X10^3/uL; Monocyte% 5.7 % (0-10); NRBC Flagged by Analyzer 0 % (0-5); Neutrophil # 8.04 X10^3/uL (2.7-7.7); Neutrophil % 82.9 % (47-70); Platelet Count 300 K/mm3 (150-450); RBC Distribution Width CV 14.9 % (11.6-14.6); RBC Distribution Width SD 50.9 fl (35.1-43.9); Red Blood Count 4.75 M/mm3 (4.6-6.2); White Blood Count 9.7 K/mm3 (4.4-11.0)
[2019-11-19 11:06] LABS: Anion Gap 3 (5-15); BUN 23 mg/dL (7-18); BUN/Creat Ratio 28.3 RATIO (10-20); Chloride 107 mmol/L (98-107); Creatinine, Serum 0.81 mg/dL (0.70-1.30); EST Glomerular Filtration Rate 98 mL/min (>60); Est Glom Filt Rate - Afr Amer 119 mL/min (>60); Estimated Creatinine Clearance 73.67 ml/min; Glucose 106 mg/dL (74-106); Potassium 4.2 mmol/L (3.5-5.1); Sodium Level 138 mmol/L (136-145)
[2019-11-19 11:06] LABS: Red Blood Cells-Urine > 100 SEEN /hpf (0-5)
[2019-11-19 11:17] LABS: International Normalized Ratio 2.7; Prothrombin Time (Protime)PT. 28.1 SECONDS (11.7-14.9)
[2019-11-19 11:37] VITALS: BP 142/89; PULSE 61; RESP 18; O2SAT 97
== END 2019-11-19 13:40 | disposition home or self-care (01) ==
PROVIDERS: Emergency Provider Physician Assistant Medical; PCP Family Medicine
DX: R33.9 Retention of urine, unspecified (principal); R31.9 Hematuria, unspecified; Z79.01 Long term (current) use of anticoagulants; Z79.82 Long term (current) use of aspirin; I10 Essential (primary) hypertension
CPT/HCPCS: 51702; 80048; 81001; 85025; 85610; 87086; 99284; A4216

== ENCOUNTER 2019-11-19 22:34 | Inpatient (IN) | payer MEDICARE, OTHER, SELFPAY ==
[2017-05-20 14:31] VITALS: BMI 25.0
[2019-11-19 09:30] VITALS: BMI 25.0
[2019-11-19 22:35] VITALS: BP 138/78; PULSE 56; RESP 15; TEMP 36.6; O2SAT 95; BMI 24.2
--- NOTE | 2019-11-19 22:46 | EKG12_ITS ---
Test Reason : CARDIAC HISTORY Blood Pressure : / mmHG Vent. Rate : 054 BPM Atrial Rate : 054 BPM P-R Int : 190 ms QRS Dur : 114 ms QT Int : 442 ms P-R-T Axes : 008 -30 -05 degrees QTc Int : 419 ms Sinus bradycardia Left axis deviation Abnormal ECG Confirmed by MARGIE SANCHEZ, FREEMAN ([id number]), videotape editor OMAR BAEZ ([id number]) on 11/22/2019 11:02:33 AM Referred By: SAROJ Confirmed By:FREEMAN HANSON MD
--- NOTE | 2019-11-19 22:47 | ED.VIS.GEN ---
History of Present Illness Chief Complaint: Complaint Informant: Patient Onset: Today Context: Gradual Onset Timing: Intermittent Current Severity: Moderate Maximum Severity: Moderate Narrative: The patient is a 73-year-old male with medical history significant for SVT, paroxysmal atrial fibrillation, prior CO, hypertension, and hyperlipidemia that presents to the emergency department with hematuria. Patient was actually seen here earlier for the same. At that point, he had a 22 Bulgarian three-way catheter placed. He was irrigated until clear. There is no evidence of obstruction. He was discussed with urology who was planning to see the patient Thursday. Tonight, he has had 2 episodes where he has obstructed his Espinoza with clots. He was having leakage around the Espinoza. He does get some cramping pain in his suprapubic area. He denies fevers or chills. He is otherwise been in his normal state of health. Prior similar symptoms: Yes Recent Illness/Hospitalization: No Past Medical History - Allergies and Home Meds Allergies/Adverse Reactions: Allergies cefuroxime Allergy (Intermediate, Verified 11/19/19 09:30) Rash rosuvastatin [From Crestor] Adverse Reaction (Severe, Verified 11/19/19 09:30) severe myalgias lisinopril Adverse Reaction (Intermediate, Verified 11/19/19 09:30) didn't control bp well, labile cephalexin Adverse Reaction (Verified 11/19/19 09:30) Pain in joints levofloxacin [From Levaquin] Adverse Reaction (Verified 11/19/19 09:30) Unknown GENERALIZED ACHINESS Primary Care Physician: Tapan Cornelius MD [Primary Care Provider] - Prior records reviewed: Yes Past Medical History: - - A. fib, SVT, hypertension, hyperlipidemia Surgical History: appendectomy, herniorrhaphy - Right inguinal, total knee arthroplasty - He had a right total knee arthroplasty 2 years ago and had a left total knee arthroplasty 6 weeks ago., TURP - He is actually had 3 surgeries on his prostate., - - Thymectomy Smoking Status: Never smoker - Family History Paternal Family History: Family History (Last Reviewed 08/05/19 @ 13:28 by Penny Hercules) Unknown No problems noted. Family History: Reports: - - His father suddenly at the age of 75 and the patient does not know the cause. Sibling Family History: Family History (Last Reviewed 08/05/19 @ 13:28 by Penny Hercules) Unknown No problems noted. Family History: Reports: Heart Disease - He has a brother who is older than he has has had a stent in the past and his twin sister has had an ablation. Review of Systems General: Denies: Chills, Fever, Sweats Eyes: Denies: Visual changes - bilaterally, Diplopia ENT: Denies: Rhinorrhea, Sore throat Cardiovascular: Denies: Chest pain, Palpitations Respiratory: Denies: Dyspnea, Cough, Dyspnea on exertion Gastrointestinal: Denies: Abdominal pain, Nausea, Vomiting, Diarrhea, Melena, Hematochezia Genitourinary: Reports: Hematuria. Denies: Dysuria, Frequency Musculoskeletal: Denies: Back pain, Extremity Pain Skin: Denies: Rash, Wounds Neurological: Denies: Headache, Weakness, Numbness Physical Exam Vital Signs/Narrative: Vital Signs Temp Pulse Resp BP Pulse Ox 11/19/19 22:35 97.9 F 56 L 15 138/78 H 95 Inital Vital Signs reviewed: Yes General: Well nourished, Well developed, No Acute Distress Head: Normocephalic, Atraumatic Eyes: Perrl, EOMI ENT: Moist mucous membranes, No rhinorrhea Neck: Supple, Nontender Cardiovascular: Regular rate, Regular rhythm, No murmurs Respiratory: No distress, CTA bilaterally, Chest nontender Abdomen: Soft, Nontender, Nondistended, Normal bowel sounds Back: Nontender, Normal Inspection Extremities: Nontender, No edema Skin: Normal color, No rash Neurological: Alert, Oriented x3, Cranial nerves II-XII grossly intact, Normal Strength, Normal Sensation Psychological: Normal affect, Normal Mood Diagnostic/Tx/Re-eval - Medical Decision Making The patient has had a rather thorough work-up already today. He has had recurrent bleeding with clotting of his Espinoza. He has a three-way in place and is still blocked it with his gross hematuria. He is on Coumadin. He was started on CBI. I did discuss this case with Dr. Briones. He agrees with plan for admission for continued bladder irrigation and potential intervention. Impression 1. Gross hematuria ED Disposition - Plan for ED Patient: Referrals: Tapan Cornelius MD [Primary Care Provider] -
[2019-11-19 23:16] LABS: Absolute Lymphocyte Count 1.41 X10^3/uL (0.83-4.51); Absolute Neutrophil Count 6.5 X10^3/uL (2.0-7.7); Basophil# 0.05 X10^3/uL; Basophil% 0.5 % (0-1); Eosinophil# 0.35 X10^3/uL; Eosinophils% 3.8 % (0-5); Hemoglobin 15.2 g/dL (13.0-16.5); Lymphocyte # 1.41 X10^3/ul (4.0); Lymphocyte % 15.1 % (19-41); Mean Corpuscular Hgb 30.2 pg (27.0-32.0); Mean Corpuscular Volume 91.3 fL (80-94); Mean Platelet Vol. 8.9 fl (6.2-12.0); Monocyte# 0.98 X10^3/uL; Monocyte% 10.5 % (0-10); NRBC Flagged by Analyzer 0 % (0-5); Neutrophil # 6.49 X10^3/uL (2.7-7.7); Neutrophil % 69.7 % (47-70); Platelet Count 324 K/mm3 (150-450); RBC Distribution Width CV 15.2 % (11.6-14.6); RBC Distribution Width SD 50.1 fl (35.1-43.9); Red Blood Count 5.04 M/mm3 (4.6-6.2); White Blood Count 9.3 K/mm3 (4.4-11.0)
[2019-11-19 23:24] LABS: International Normalized Ratio 2.6; Prothrombin Time (Protime)PT. 27.1 SECONDS (11.7-14.9)
[2019-11-19 23:26] VITALS: BP 135/76; PULSE 86; RESP 16; TEMP 36.8; O2SAT 97
[2019-11-19 23:32] LABS: AST(SGOT) 19 U/L (15-37); Alanine Aminotransfer ALT/SGPT 27 U/L (16-61); Albumin, Serum 3.9 g/dL (3.2-5.0); Alkaline Phosphatase 66 U/L (45-117); Anion Gap 6 (5-15); BUN 21 mg/dL (7-18); BUN/Creat Ratio 24.9 RATIO (10-20); Calcium,Total 8.8 mg/dL (8.5-10.1); Chloride 107 mmol/L (98-107); Creatinine, Serum 0.84 mg/dL (0.70-1.30); EST Glomerular Filtration Rate 94 mL/min (>60); Est Glom Filt Rate - Afr Amer 114 mL/min (>60); Estimated Creatinine Clearance 68.57 ml/min; Globulin 3.8 g/dL (2.2-4.2); Glucose 100 mg/dL (74-106); Potassium 4.3 mmol/L (3.5-5.1); Protein, Total 7.7 g/dL (6.4-8.2); Sodium Level 139 mmol/L (136-145)
--- NOTE | 2019-11-19 23:45 | NURSING ---
Talked to Syl LOPEZ in ER. Each of the pt's home meds were reviewed by her with Dr. Briones before they were ordered.
[2019-11-20 00:23] VITALS: BP 144/90; PULSE 55; RESP 18; TEMP 36.8; O2SAT 99
[2019-11-20 00:37] VITALS: BMI 25.5
[2019-11-20 00:45] VITALS: BMI 25.5
[2019-11-20] MEDS: 0.9% Normal Saline 1,000 ML 75 ML IV ×2 (01:24→13:58)
[2019-11-20] MEDS: 0.9% Saline Lock 10 ML Syringe IV (01:24)
[2019-11-20 05:19] VITALS: BP 137/83; PULSE 56; RESP 18; TEMP 36.4; O2SAT 95
[2019-11-20] MEDS: Levothyroxine 75 MCG Tablet PO (05:38)
[2019-11-20 06:20] LABS: Hematocrit 41.7 % (40-54); Hemoglobin 13.7 g/dL (13.0-16.5); Mean Corp Hgb Conc 32.9 g/dL (32-36); Mean Corpuscular Hgb 30.8 pg (27.0-32.0); Mean Corpuscular Volume 93.7 fL (80-94); Mean Platelet Vol. 9.2 fl (6.2-12.0); Platelet Count 291 K/mm3 (150-450); RBC Distribution Width CV 15.5 % (11.6-14.6); RBC Distribution Width SD 52.9 fl (35.1-43.9); Red Blood Count 4.45 M/mm3 (4.6-6.2); White Blood Count 7.3 K/mm3 (4.4-11.0)
[2019-11-20 06:56] LABS: Anion Gap 5 (5-15); BUN 18 mg/dL (7-18); BUN/Creat Ratio 24.1 RATIO (10-20); Calcium,Total 8.3 mg/dL (8.5-10.1); Chloride 108 mmol/L (98-107); Creatinine, Serum 0.75 mg/dL (0.70-1.30); EST Glomerular Filtration Rate 108 mL/min (>60); Est Glom Filt Rate - Afr Amer 131 mL/min (>60); Glucose 100 mg/dL (74-106); Potassium 4.1 mmol/L (3.5-5.1); Sodium Level 140 mmol/L (136-145)
[2019-11-20 09:42] VITALS: BP 131/78; PULSE 59; RESP 18; TEMP 36.9; O2SAT 95
[2019-11-20] MEDS: Multivitamins,Therapeutic Tablet 1 TABLET PO (09:44)
[2019-11-20] MEDS: Carvedilol 6.25 MG Tablet PO ×2 (09:45→21:17)
[2019-11-20] MEDS: amLODIPine 2.5 MG Tablet PO (09:45)
[2019-11-20] MEDS: Flecainide 100 MG Tablet 50 MG PO ×2 (09:45→21:17)
--- NOTE | 2019-11-20 10:02 | PCM.HP.STD ---
Problem List (1) Gross hematuria Status: Acute History of Present Illness Date of Admission: 11/19/19 Chief Complaint: Gross hematuria The patient is a 73 year old male who has a history of a large prostate prior TURP a long time ago says he was doing well without any problems and suddenly started bleeding and had heavy blood clots came to emergency room catheter was placed he was sent home with a catheter but came back with catheter clogged so he was admitted for three-way irrigation. He does take Coumadin. His INR was 2.6 on admission. His urine is now clear on slow irrigation, plan to do a CT scan. Past Medical History Past Medical History (Chronic Problems): Chronic Problems (Last Reviewed 08/05/19 @ 13:28 by Penny Hercules) Atherosclerotic heart disease of [place] coronary artery without angina pectoris (Chronic) Successful PTCA/JOSEFINA mid LAD with a 2.5 x 32 Promus Synergy, post dilated in proximal 2/3 with a 2.75 x 8 NC balloon, and flared at proximal stent with a 3.0 x 8 NC Balloon; 85%-->0%, no dissection. Successful PCI with PTCA to the balloon angioplasty only to ostium of DIAG#1 with a 2.0 x 12 balloon; 75%-->30%, no dissection. Stented coronary artery (Chronic 11/23/18) Successful PTCA/JOSEFINA mid LAD with a 2.5 x 32 Promus Synergy, post dilated in proximal 2/3 with a 2.75 x 8 NC balloon, and flared at proximal stent with a 3.0 x 8 NC Balloon; 85%-->0%, no dissection. Successful PCI with PTCA to the balloon angioplasty only to ostium of DIAG#1 with a 2.0 x 12 balloon; 75%-->30%, no dissection. H/O right and left heart catheterization (Chronic 11/12/18) Normal LV size, wall motion,and systolic function; Perserved Left Ventricular systolic function with normal EDP; LVEF: by LV gram 65 %; Single vessel CAD of the mid LAD; Non obstructive coronary arteries. Aortic Valve Stenosis- Mild; Right heart pressures - Normal; Aortic Valve Insufficiency Mild RECOMMENDATIONS: Staged percutaneous intervention vs. Surgical Intervention; DEVEN in 1-2 week to eval for AVR vs medical management followed by PCI to LAD. Restart lovenox on 11/14/2108. Start plavix 75mg po daily. Manual sheath removal. Hearing loss of left ear (Chronic) Since childhood Nonrheumatic mitral valve regurgitation (Chronic) Mild 1+ per echo 06/15/17 @ [facility] [place] Nonrheumatic aortic (valve) stenosis (Chronic) Moderately severe per echo 06/15/[address] Ontiveros [facility] [place]: NADEGE 0.84 History of thymectomy (Chronic 04/23/17) Done @ [facility] per Dr. Ryan Quintanilla for anterior mediastinal mass, malignant Atelectasis (Chronic) Thymoma, malignant (Chronic) Hyperlipidemia (Chronic) Paroxysmal A-fib (Chronic) Pericarditis (Chronic) SERGO (obstructive sleep apnea) (Chronic) Carotid dissection, bilateral (Chronic 04/08/16) Spontaneous Hypothyroidism (Chronic) Hypertension (Chronic) Family history of cardiovascular disease (Chronic) Medical History: Medical History (Last Reviewed 11/20/19 @ 10:[address] Devon Briones MD) Atherosclerotic heart disease of [place] coronary artery without angina pectoris (Chronic) I25.10 Successful PTCA/JOSEFINA mid LAD with a 2.5 x 32 Promus Synergy, post dilated in proximal 2/3 with a 2.75 x 8 NC balloon, and flared at proximal stent with a 3.0 x 8 NC Balloon; 85%-->0%, no dissection. Successful PCI with PTCA to the balloon angioplasty only to ostium of DIAG#1 with a 2.0 x 12 balloon; 75%-->30%, no dissection. Chest tightness (Acute) R07.89 Hematuria (Acute) R31.9 Hearing loss of left ear (Chronic) H91.92 Since childhood Nonrheumatic mitral valve regurgitation (Chronic) I34.0 Mild 1+ per echo 06/15/17 @ [facility] [place] Nonrheumatic aortic (valve) stenosis (Chronic) I35.0 Moderately severe per echo 06/15/[address] Ontiveros [facility] [place]: NADEGE 0.84 Atelectasis (Chronic) J98.11 Thymoma, malignant (Chronic) C37 Hyperlipidemia (Chronic) E78.5 Paroxysmal A-fib (Chronic) I48.0 SERGO (obstructive sleep apnea) (Chronic) G47.33 Carotid dissection, bilateral (Chronic) Onset Date: 04/08/16 I77.71 Spontaneous Hypothyroidism (Chronic) E03.9 Hypertension (Chronic) I10 History of BPH Z87.438 History of kidney stones Z87.442 History of pericarditis Onset Date: ~04/2017 Z86.79 post thymectomy Right inguinal hernia K40.90 Chest pain (Resolved) R07.9 He has been having chest pain now for the past 2 weeks. Allergies cefuroxime Allergy (Intermediate, Verified 11/19/19 09:30) Rash rosuvastatin [From Crestor] Adverse Reaction (Severe, Verified 11/19/19 09:30) severe myalgias lisinopril Adverse Reaction (Intermediate, Verified 11/19/19 09:30) didn't control bp well, labile cephalexin Adverse Reaction (Verified 11/19/19 09:30) Pain in joints levofloxacin [From Levaquin] Adverse Reaction (Verified 11/20/19 00:40) achiness Home Medications: Ambulatory Orders Medication Instructions Recorded Levothyroxine [Synthroid] 75 mcg PO DAILY 01/07/17 Multivitamin,Therapeutic [Thera] 1 ea PO DAILY 01/07/17 Ubidecarenone [Q-Sorb Co Q-10] 100 mg PO DAILY 08/13/17 rosuvastatin 5 mg tablet 5 mg PO DAILY 10/28/18 nitroglycerin 0.4 mg sublingual 0.4 mg SUBLINGUAL Q5-15M PRN #25 12/21/18 tablet tab amlodipine 5 mg tablet 2.5 mg PO DAILY tab 02/04/19 lysine 500 mg tablet 500 mg PO DAILY 06/09/19 Aspirin [Low Dose Aspirin EC] 81 mg PO DAILY 11/19/19 Carvedilol [Coreg (Beta Ajrret)] 6.25 mg PO BID 11/19/19 Flecainide [Tambocor] 50 mg PO BID 11/19/19 Warfarin Sodium 7.5 mg PO DAILY 11/19/19 Surgical History: Surgical History (Last Reviewed 11/20/19 @ 10:[address] Devon Briones MD) Stented coronary artery (Chronic) Onset Date: 11/23/18 Z95.5 Successful PTCA/JOSEFINA mid LAD with a 2.5 x 32 Promus Synergy, post dilated in proximal 2/3 with a 2.75 x 8 NC balloon, and flared at proximal stent with a 3.0 x 8 NC Balloon; 85%-->0%, no dissection. Successful PCI with PTCA to the balloon angioplasty only to ostium of DIAG#1 with a 2.0 x 12 balloon; 75%-->30%, no dissection. H/O right and left heart catheterization (Chronic) Onset Date: 11/12/18 Z98.890 Normal LV size, wall motion,and systolic function; Perserved Left Ventricular systolic function with normal EDP; LVEF: by LV gram 65 %; Single vessel CAD of the mid LAD; Non obstructive coronary arteries. Aortic Valve Stenosis- Mild; Right heart pressures - Normal; Aortic Valve Insufficiency Mild RECOMMENDATIONS: Staged percutaneous intervention vs. Surgical Intervention; DEVEN in 1-2 week to eval for AVR vs medical management followed by PCI to LAD. Restart lovenox on 11/14/2108. Start plavix 75mg po daily. Manual sheath removal. History of thymectomy (Chronic) Onset Date: 04/23/17 Z90.89 Done @ [facility] per Dr. Ryan Quintanilla for anterior mediastinal mass, malignant Surgical History: appendectomy, herniorrhaphy - Right inguinal, total knee arthroplasty - He had a right total knee arthroplasty 2 years ago and had a left total knee arthroplasty 6 weeks ago., TURP - He is actually had 3 surgeries on his prostate., - - Thymectomy Psychiatric History: No pertinent psych hx Lives: Spouse/ Significant Other Smoking Status: Never smoker Tobacco Use: Non-smoker Alcohol: None Drugs: None - *Family History Paternal Family History: Family History (Last Reviewed 08/05/19 @ 13:28 by Penny Hercules) Unknown No problems noted. History Items: - - His father suddenly at the age of 75 and the patient does not know the cause. Sibling Family History: Family History (Last Reviewed 08/05/19 @ 13:28 by Penny Hercules) Unknown No problems noted. History Items: Heart Disease - He has a brother who is older than he has has had a stent in the past and his twin sister has had an ablation. Review of Systems Constitutional: Denies: Chills, Fever, Weight Change HEENT: Denies: Head Aches, Sinus Congestion, Sinus Drainage Cardiovascular: Denies: Chest Pain, Palpitations Respiratory: Denies: Cough, Shortness of breath at rest, Sputum production Gastrointestinal: Denies: Abdominal Pain, Nausea, Vomiting Genitourinary: Reports: Hematuria. Denies: Dysuria Musculoskeletal: Denies: Joint Pain, Joint Tenderness Skin: Denies: Rash, Wounds Neurological: Denies: Numbness, Tingling, Focal weakness Psychiatric: Denies: Anxiety, Depression, Homicidal Ideations, Suicidal Ideations Hematologic/ Lymphatic: Denies: Easy Bruising, Easy Bleeding VTE Information - Inpt Only VTE Present on Admission: No VTE Mechan Device Prophylaxis: SCD's Patient Problems: Active and Suspected Problems (Last Reviewed 08/05/19 @ 13:28 by Penny Hercules) Gross hematuria (Acute) - Physical Exam Vitals/I&O's: Vital Signs Temp Pulse Resp BP Pulse Ox 98.4 F 59 L 18 131/78 H 95 11/20/19 09:42 11/20/19 09:42 11/20/19 09:42 11/20/19 09:42 11/20/19 09:42 Oxygen Delivery Method Room Air Weight: 71.8 kg Body Mass Index (BMI) 25.5 Finger Stick Blood Glucose 89 Intake and Output for Last 24 Hours 11/18/19 11/19/19 11/20/19 23:59 23:59 23:59 Intake Total 300 / 300 Output Total 1575 / 1575 Balance -1275 / -1275 General: Alert, Oriented x3, Cooperative HEENT: Atraumatic, PERRLA, EOMI, Normocephalic Neck: Supple, No JVD, Negative Carotid Bruits Lungs: Clear to auscultation, Normal air movement Cardiovascular: Regular rate, No murmurs Abdomen: Bowel Sounds Present, Soft, Non Tender Extremities: No edema, Capillary Refill Less than 3 Seconds Skin: No rashes, No breakdown Musculoskeletal: No Tenderness to Palpation of Joints or Extremities Neurological: Cranial nerves II-XII grossly intact Psych/Mental Status: Normal Affect, Appropriate Laboratory Results 11/19/19 22:50: WBC 9.3, RBC 5.04, Hgb 15.2, Hct 46.0, MCV 91.3, MCH 30.2, MCHC 33.0, RDW Std Deviation 50.1 H, RDW Coeff of Eddie 15.2 H, Plt Count 324, MPV 8.9, Immature Gran % (Auto) 0.400, Neut % (Auto) 69.7, Lymph % (Auto) 15.1 L, [place] % (Auto) 10.5 H, Eos % (Auto) 3.8, Baso % (Auto) 0.5, Absolute Neuts (auto) 6.5, Absolute Lymphs (auto) 1.41, Nucleated RBC % 0 11/19/19 22:50: PT 27.1 H, INR 2.6 11/19/19 22:50: Sodium 139, Potassium 4.3, Chloride 107, Carbon Dioxide 26.0, Anion Gap 6, BUN 21 H, Creatinine 0.84, Estim Creat Clear Calc 68.57, Est GFR (MDRD) Af Amer 114, Est GFR (MDRD) Non-Af 94, BUN/Creatinine Ratio 24.9 H, Glucose 100, Calcium 8.8, Total Bilirubin 0.50, AST 19, ALT 27, Alkaline Phosphatase 66, Total Protein 7.7, Albumin 3.9, Globulin 3.8, Albumin/Globulin Ratio 1.0 11/20/19 05:28: WBC 7.3, RBC 4.45 L, Hgb 13.7, Hct 41.7, MCV 93.7, MCH 30.8, MCHC 32.9, RDW Std Deviation 52.9 H, RDW Coeff of Eddie 15.5 H, Plt Count 291, MPV 9.2 11/20/19 05:28: Sodium 140, Potassium 4.1, Chloride 108 H, Carbon Dioxide 27.0, Anion Gap 5, BUN 18, Creatinine 0.75, Estim Creat Clear Calc 57.60, Est GFR (MDRD) Af Amer 131, Est GFR (MDRD) Non-Af 108, BUN/Creatinine Ratio 24.1 H, Glucose 100, Calcium 8.3 L Current Medications Amlodipine Besylate (Norvasc) 2.5 mg PO DAILY [facility] Last Admin: 11/20/19 09:45 Dose: 2.5 mg Documented by: Atorvastatin Calcium (Lipitor) 10 mg PO DAILY@2200 [facility] Carvedilol (Coreg) 6.25 mg PO BID [facility] Last Admin: 11/20/19 09:45 Dose: 6.25 mg Documented by: Flecainide Acetate (Tambocor) 50 mg PO BID [facility] Last Admin: 11/20/19 09:45 Dose: 50 mg Documented by: Sodium Chloride () 1,000 mls @ 75 mls/hr IV .[id number] [facility] Last Admin: 11/20/19 01:24 Dose: 75 mls/hr Documented by: Levothyroxine Sodium (Synthroid) 75 mcg PO DAILY@0600 [facility] Last Admin: 11/20/19 05:38 Dose: 75 mcg Documented by: Morphine Sulfate () 1 - 2 mg IV Q2H PRN PRN PRN Reason: PAIN (-03/03) Multivitamins (Multivitamin) 1 tablet PO DAILYCM [facility] Last Admin: 11/20/19 09:44 Dose: 1 tablet Documented by: Nitroglycerin (Nitrostat) 0.4 mg SUBLINGUAL Q5M PRN PRN Reason: chest pain Ondansetron HCl (Zofran) 4 mg IV Q8H PRN PRN PRN Reason: nausea Sodium Chloride () 10 - 40 ml IV UD PRN PRN Reason: SALINE FLUSH Last Admin: 11/20/19 01:24 Dose: 10 ml Documented by: Assessment/Plan All Active Problems (Last Reviewed 08/05/19 @ 13:28 by Penny Hercules) SVT (supraventricular tachycardia) (Acute) Sustained SVT (Acute) Hypotension (Acute) Non-STEMI (non-ST elevated myocardial infarction) (Acute) Gross hematuria (Acute) Chest tightness (Acute) Hematuria (Acute) Somatic dysfunction of rib cage region (Acute) Chest pain (Resolved) Dehydration (Resolved) Elevated d-dimer (Resolved) Generalized weakness (Resolved) Hypertensive urgency (Resolved) 73-year-old male admitted with gross hematuria continue with bladder irrigation, will do a CT scan of the abdomen pelvis. If urine clears up we will remove catheter tomorrow for voiding trial.
--- NOTE | 2019-11-20 10:05 | CT_ITS ---
STUDY: CT ABDOMEN AND PELVIS WITH AND WITHOUT CONTRAST REASON FOR EXAM: Male, 73 years old. Gross hematuria RADIATION DOSAGE (If Supplied By Facility): CTDIvol = ( 12.24 ) mGy, DLP = ( 1026.62 ) mGycm TECHNIQUE: Transaxial images were obtained from the dome of the diaphragm to the symphysis pubis without oral contrast. IV 100mL Isovue-300 was administered. Sagittal and coronal images were reconstructed. Individualized dose optimization techniques were used for this CT. COMPARISON: September 14, 2018 FINDINGS: The visualized lung bases are unremarkable. The visualized portions of the heart are within normal limits. Normal liver. Normal gallbladder and extrahepatic biliary system. Normal spleen. Normal pancreas. Normal bilateral adrenal glands. Cysts up to 5.8 cm in the right kidney. Probable parapelvic cysts in the left kidney. Small hiatal hernia. Normal small intestine. Normal colon. The appendix is not visualized. Normal abdominal aorta. Normal inferior vena cava. Normal retroperitoneum. Espinoza catheter in the urinary bladder. Filling defect within the layering contrast in the urinary bladder may be due to blood clots. Intraluminal gas in the gallbladder with small anterior diverticuli noted. Mild urinary bladder wall thickening. The prostate measures 4.3 x 5.1 cm Normal abdominal wall. Degenerative vertebral changes. CT/CT Abd/Pelvis W/WO Contrast IMPRESSION: Mild urinary bladder wall thickening may be due to incomplete distention. Intraluminal filling defects may be related to blood clots. Small urinary bladder diverticuli anteriorly. Espinoza catheter in place. Bilateral renal cysts. No renal stones noted. Small hiatal hernia. Electronically Signed: Joseph Prince DO at 11:40 EDT Tel [phone], Service support ,
[2019-11-20 14:00] VITALS: BP 121/76; PULSE 57; RESP 18; TEMP 37.2; O2SAT 97
--- NOTE | 2019-11-20 14:30 | NURSING ---
[address] GARCIA WITH NS CBI DRAINING CLEAR YELLOW. NO BLEEDING, NO CLOTS NOTED. PT IS HOWEVER HAVING MODERATE AMOUNT OF LEAKING AROUND CATHETER INSERTION SITE. DR LINARES MADE AWARE. STATES MANUALLY FLUSH CATHETER & MONITOR.
[2019-11-20 20:29] VITALS: BP 136/79; PULSE 55; RESP 20; TEMP 37.1; O2SAT 98
[2019-11-20 20:45] VITALS: PULSE 54
[2019-11-20] MEDS: Atorvastatin Calcium 10 MG Tablet PO (21:17)
[2019-11-21 02:01] VITALS: BP 139/81; PULSE 61; RESP 16; TEMP 36.6; O2SAT 95
--- NOTE | 2019-11-21 03:34 | NURSING ---
Pt felt like he was leaking around galvan a little in attends. Catheter flushed with just a couple of tiny clots noted. CBI continues to run. Urine looks clear in tubing. Attends changed.
[2019-11-21] MEDS: 0.9% Normal Saline 1,000 ML 75 ML IV (03:35)
[2019-11-21] MEDS: Levothyroxine 75 MCG Tablet PO (06:39)
--- NOTE | 2019-11-21 06:56 | PCM.PROGNOTE ---
Patient Problems: Active and Suspected Problems (Last Reviewed 11/20/19 @ 10:[address] Devon Briones MD) Gross hematuria (Acute) Subjective: urine clear, ct scan reviewed and clear could be prostate bleeding d/c galvan - Physical Exam Vitals/I&O's: Vital Signs Temp Pulse Resp BP Pulse Ox 97.9 F 61 16 139/81 H 95 11/21/19 02:01 11/21/19 02:01 11/21/19 02:01 11/21/19 02:01 11/21/19 02:01 Oxygen Delivery Method Room Air Weight: 71.8 kg Body Mass Index (BMI) 25.5 Finger Stick Blood Glucose 89 Intake and Output for Last 24 Hours 11/19/19 11/20/19 11/21/19 23:59 23:59 23:59 Intake Total 1882.5 / 1882.5 1200 / 1200 Output Total 1575 / 1575 1600 / 1600 Balance 307.5 / 307.5 -400 / -400 General: Alert, Oriented x3, Cooperative HEENT: Atraumatic, PERRLA, EOMI, Normocephalic Neck: Supple, No JVD, Negative Carotid Bruits Lungs: Clear to auscultation, Normal air movement Cardiovascular: Regular rate, No murmurs Abdomen: Bowel Sounds Present, Soft, Non Tender Extremities: No edema, Capillary Refill Less than 3 Seconds Skin: No rashes, No breakdown Musculoskeletal: No Tenderness to Palpation of Joints or Extremities Neurological: Cranial nerves II-XII grossly intact Psych/Mental Status: Normal Affect, Appropriate Laboratory Results 11/20/19 05:28: Sodium 140, Potassium 4.1, Chloride 108 H, Carbon Dioxide 27.0, Anion Gap 5, BUN 18, Creatinine 0.75, Estim Creat Clear Calc 57.60, Est GFR (MDRD) Af Amer 131, Est GFR (MDRD) Non-Af 108, BUN/Creatinine Ratio 24.1 H, Glucose 100, Calcium 8.3 L Current Medications Amlodipine Besylate (Norvasc) 2.5 mg PO DAILY [facility] Last Admin: 11/20/19 09:45 Dose: 2.5 mg Documented by: Atorvastatin Calcium (Lipitor) 10 mg PO DAILY@2200 [facility] Last Admin: 11/20/19 21:17 Dose: 10 mg Documented by: Carvedilol (Coreg) 6.25 mg PO BID [facility] Last Admin: 11/20/19 21:17 Dose: 6.25 mg Documented by: Flecainide Acetate (Tambocor) 50 mg PO BID [facility] Last Admin: 11/20/19 21:17 Dose: 50 mg Documented by: Sodium Chloride () 1,000 mls @ 75 mls/hr IV .[id number] [facility] Last Admin: 11/21/19 03:35 Dose: 75 mls/hr Documented by: Iopamidol (Contrast Allergy Check) 0 ml IV X1 [facility] Last Admin: 11/20/19 17:20 Dose: Not Given Documented by: Levothyroxine Sodium (Synthroid) 75 mcg PO DAILY@0600 [facility] Last Admin: 11/21/19 06:39 Dose: 75 mcg Documented by: Morphine Sulfate () 1 - 2 mg IV Q2H PRN PRN PRN Reason: PAIN (-03/03) Multivitamins (Multivitamin) 1 tablet PO DAILYCM [facility] Last Admin: 11/20/19 09:44 Dose: 1 tablet Documented by: Nitroglycerin (Nitrostat) 0.4 mg SUBLINGUAL Q5M PRN PRN Reason: chest pain Ondansetron HCl (Zofran) 4 mg IV Q8H PRN PRN PRN Reason: nausea Sodium Chloride () 10 - 40 ml IV UD PRN PRN Reason: SALINE FLUSH Last Admin: 11/20/19 01:24 Dose: 10 ml Documented by: Medical Necessity - Tobacco Use Smoking Status: Never smoker Tobacco Use: Non-smoker Assessment/Plan All Active Problems (Last Reviewed 11/20/19 @ 10:[address] Devon Briones MD) SVT (supraventricular tachycardia) (Acute) Sustained SVT (Acute) Hypotension (Acute) Non-STEMI (non-ST elevated myocardial infarction) (Acute) Gross hematuria (Acute) Chest tightness (Acute) Hematuria (Acute) Somatic dysfunction of rib cage region (Acute) Chest pain (Resolved) Dehydration (Resolved) Elevated d-dimer (Resolved) Generalized weakness (Resolved) Hypertensive urgency (Resolved) home today follow up outpatient for cyto stay off coumadin for risk of surgery
--- NOTE | 2019-11-21 06:58 | DCINST_ITS ---
Discharge Diet: Light diet - advance as tolerated Discharge Activity: Return to Normal Activity, May Shower Call your doctor if your incision/area has: Sudden Increased Bleeding Additional Instructions: do not take coumadin okay to take baby aspirin Allergies/Adverse Reactions: Allergies cefuroxime Allergy (Intermediate, Verified 11/19/19 09:30) Rash rosuvastatin [From Crestor] Adverse Reaction (Severe, Verified 11/19/19 09:30) severe myalgias lisinopril Adverse Reaction (Intermediate, Verified 11/19/19 09:30) didn't control bp well, labile cephalexin Adverse Reaction (Verified 11/19/19 09:30) Pain in joints levofloxacin [From Levaquin] Adverse Reaction (Verified 11/20/19 00:40) achiness Medications to take at Discharge Levothyroxine [Synthroid] 75 mcg PO DAILY 01/07/17 Multivitamin,Therapeutic [Thera] 1 ea PO DAILY 01/07/17 Ubidecarenone [Q-Sorb Co Q-10] 100 mg PO DAILY 08/13/17 rosuvastatin 5 mg tablet 5 mg PO DAILY 10/28/18 nitroglycerin 0.4 mg sublingual tablet 0.4 mg SUBLINGUAL Q5-15M PRN #25 tab 11/24 amlodipine 5 mg tablet 2.5 mg PO DAILY tab 02/04/19 lysine 500 mg tablet 500 mg PO DAILY 06/09/19 Aspirin [Low Dose Aspirin EC] 81 mg PO DAILY 11/19/19 Carvedilol [Coreg (Beta Jarret)] 6.25 mg PO BID 11/19/19 Flecainide [Tambocor] 50 mg PO BID 11/19/19 Finasteride [Proscar] 5 mg PO DAILY #90 tab 11/21/19 The following prescriptions were given: Finasteride [Proscar] 5 mg PO DAILY #90 tab Transmission Status: Pending to [facility] Primary Care Physician: Tapan Cornelius MD [Primary Care Provider] - Test Results: Test results from this visit will be discussed in further detail at your follow- up appointment, if applicable. Please Follow Up With: Devon Briones MD When: please call to make an appointment.
--- NOTE | 2019-11-21 06:59 | PCM.DC.SUM ---
Discharge Date and Diagnosis - Problem List Patient Problems: Active and Suspected Problems (Last Reviewed 11/20/19 @ 10:[address] Devon Briones MD) Gross hematuria (Acute) Date of Admission: 11/19/19 Date of Discharge: 11/21/19 - Primary Discharge Diagnosis Acute Problems: Active Problems (Last Reviewed 11/20/19 @ 10:[address] Devon Briones MD) Gross hematuria (Acute) - Secondary Discharge Diagnosis Chronic Problems: Chronic Problems (Last Reviewed 11/20/19 @ 10:[address] Devon Briones MD) Atherosclerotic heart disease of [place] coronary artery without angina pectoris (Chronic) Successful PTCA/JOSEFINA mid LAD with a 2.5 x 32 Promus Synergy, post dilated in proximal 2/3 with a 2.75 x 8 NC balloon, and flared at proximal stent with a 3.0 x 8 NC Balloon; 85%-->0%, no dissection. Successful PCI with PTCA to the balloon angioplasty only to ostium of DIAG#1 with a 2.0 x 12 balloon; 75%-->30%, no dissection. Stented coronary artery (Chronic 11/23/18) Successful PTCA/JOSEFINA mid LAD with a 2.5 x 32 Promus Synergy, post dilated in proximal 2/3 with a 2.75 x 8 NC balloon, and flared at proximal stent with a 3.0 x 8 NC Balloon; 85%-->0%, no dissection. Successful PCI with PTCA to the balloon angioplasty only to ostium of DIAG#1 with a 2.0 x 12 balloon; 75%-->30%, no dissection. H/O right and left heart catheterization (Chronic 11/12/18) Normal LV size, wall motion,and systolic function; Perserved Left Ventricular systolic function with normal EDP; LVEF: by LV gram 65 %; Single vessel CAD of the mid LAD; Non obstructive coronary arteries. Aortic Valve Stenosis- Mild; Right heart pressures - Normal; Aortic Valve Insufficiency Mild RECOMMENDATIONS: Staged percutaneous intervention vs. Surgical Intervention; DEVEN in 1-2 week to eval for AVR vs medical management followed by PCI to LAD. Restart lovenox on 11/14/2108. Start plavix 75mg po daily. Manual sheath removal. Hearing loss of left ear (Chronic) Since childhood Nonrheumatic mitral valve regurgitation (Chronic) Mild 1+ per echo 06/15/17 @ [facility] Nonrheumatic aortic (valve) stenosis (Chronic) Moderately severe per echo 06/15/[address] Ontiveros [facility] [place]: NADEGE 0.84 History of thymectomy (Chronic 04/23/17) Done @ [facility] per Dr. Ryan Quintanilla for anterior mediastinal mass, malignant Atelectasis (Chronic) Thymoma, malignant (Chronic) Hyperlipidemia (Chronic) Paroxysmal A-fib (Chronic) Pericarditis (Chronic) SERGO (obstructive sleep apnea) (Chronic) Carotid dissection, bilateral (Chronic 04/08/16) Spontaneous Hypothyroidism (Chronic) Hypertension (Chronic) Family history of cardiovascular disease (Chronic) Hospital Course and Treatment Operations: None Procedures: None Summary of Care Provided: The patient is a 73 year old male admitted with bleeding on coumadin for carotid dissection several years ago bleeding stopped after CBI ct scan with no obvious cause probably prostate h/o TURP in the past. d/c galvan home with urine when goes home hold coumadin for high risk of bleeding will restart in 1 week risk is low discussed with patient. Patient Problems: Active and Suspected Problems (Last Reviewed 11/20/19 @ 10:[address] Devon Briones MD) Gross hematuria (Acute) - Physical Exam Vitals/I&O's: Vital Signs Temp Pulse Resp BP Pulse Ox 97.9 F 61 16 139/81 H 95 11/21/19 02:01 11/21/19 02:01 11/21/19 02:01 11/21/19 02:01 11/21/19 02:01 Oxygen Delivery Method Room Air Weight: 71.8 kg Body Mass Index (BMI) 25.5 Finger Stick Blood Glucose 89 Intake and Output for Last 24 Hours 11/19/19 11/20/19 11/21/19 23:59 23:59 23:59 Intake Total 1882.5 / 1882.5 1200 / 1200 Output Total 1575 / 1575 1600 / 1600 Balance 307.5 / 307.5 -400 / -400 General: Alert, Oriented x3, Cooperative HEENT: Atraumatic, PERRLA, EOMI, Normocephalic Neck: Supple, No JVD, Negative Carotid Bruits Lungs: Clear to auscultation, Normal air movement Cardiovascular: Regular rate, No murmurs Abdomen: Bowel Sounds Present, Soft, Non Tender Extremities: No edema, Capillary Refill Less than 3 Seconds Skin: No rashes, No breakdown Musculoskeletal: No Tenderness to Palpation of Joints or Extremities Neurological: Cranial nerves II-XII grossly intact Psych/Mental Status: Normal Affect, Appropriate Current Medications Amlodipine Besylate (Norvasc) 2.5 mg PO DAILY [facility] Last Admin: 11/20/19 09:45 Dose: 2.5 mg Documented by: Atorvastatin Calcium (Lipitor) 10 mg PO DAILY@2200 [facility] Last Admin: 11/20/19 21:17 Dose: 10 mg Documented by: Carvedilol (Coreg) 6.25 mg PO BID [facility] Last Admin: 11/20/19 21:17 Dose: 6.25 mg Documented by: Flecainide Acetate (Tambocor) 50 mg PO BID [facility] Last Admin: 11/20/19 21:17 Dose: 50 mg Documented by: Sodium Chloride () 1,000 mls @ 75 mls/hr IV .[id number] [facility] Last Admin: 11/21/19 03:35 Dose: 75 mls/hr Documented by: Iopamidol (Contrast Allergy Check) 0 ml IV X1 [facility] Last Admin: 11/20/19 17:20 Dose: Not Given Documented by: Levothyroxine Sodium (Synthroid) 75 mcg PO DAILY@0600 [facility] Last Admin: 11/21/19 06:39 Dose: 75 mcg Documented by: Morphine Sulfate () 1 - 2 mg IV Q2H PRN PRN PRN Reason: PAIN (1-10/10) Multivitamins (Multivitamin) 1 tablet PO DAILYCM [facility] Last Admin: 11/20/19 09:44 Dose: 1 tablet Documented by: Nitroglycerin (Nitrostat) 0.4 mg SUBLINGUAL Q5M PRN PRN Reason: chest pain Ondansetron HCl (Zofran) 4 mg IV Q8H PRN PRN PRN Reason: nausea Sodium Chloride () 10 - 40 ml IV UD PRN PRN Reason: SALINE FLUSH Last Admin: 11/20/19 01:24 Dose: 10 ml Documented by: Discharge Diet: Light diet - advance as tolerated Discharge Activity: Return to Normal Activity, May Shower Call your doctor if your incision/area has: Sudden Increased Bleeding Home Medications: Medications to take at Discharge Levothyroxine [Synthroid] 75 mcg PO DAILY 01/07/17 Multivitamin,Therapeutic [Thera] 1 ea PO DAILY 01/07/17 Ubidecarenone [Q-Sorb Co Q-10] 100 mg PO DAILY 08/13/17 rosuvastatin 5 mg tablet 5 mg PO DAILY 10/28/18 nitroglycerin 0.4 mg sublingual tablet 0.4 mg SUBLINGUAL Q5-15M PRN #25 tab 12/21/18 amlodipine 5 mg tablet 2.5 mg PO DAILY tab 02/04/19 lysine 500 mg tablet 500 mg PO DAILY 06/09/19 Aspirin [Low Dose Aspirin EC] 81 mg PO DAILY 11/19/19 Carvedilol [Coreg (Beta Jarret)] 6.25 mg PO BID 11/19/19 Flecainide [Tambocor] 50 mg PO BID 11/19/19 Finasteride [Proscar] 5 mg PO DAILY #90 tab 11/21/19 Following Prescrptions Were Given to Patient: Finasteride [Proscar] 5 mg PO DAILY #90 tab Transmission Status: Pending to [facility] Primary Care Physician: Tapan Cornelius MD [Primary Care Provider] - Please Follow Up With: Devon Briones MD When: please call to make an appointment. Additional Instructions: do not take coumadin okay to take baby aspirin Medical Necessity - Tobacco Use Smoking Status: Never smoker Tobacco Use: Non-smoker Meaningful Use Info Meaningful Use Diagnoses (Choose all that apply): None applicable
[2019-11-21 07:29] VITALS: BP 140/81; PULSE 55; RESP 18; TEMP 37; O2SAT 97
[2019-11-21 07:35] VITALS: PULSE 60
[2019-11-21] MEDS: Carvedilol 6.25 MG Tablet PO (07:40)
[2019-11-21] MEDS: Flecainide 100 MG Tablet 50 MG PO (07:40)
[2019-11-21] MEDS: amLODIPine 2.5 MG Tablet PO (07:41)
[2019-11-21] MEDS: Multivitamins,Therapeutic Tablet 1 TABLET PO (07:41)
--- NOTE | 2019-11-21 10:25 | CASEMGMT ---
JESSICA JAY attempted to complete assessment but patient was discharged. Patient lives with and is established with Dr Cornelius as PCP. Patient is to follow-up with urology. No needs identified.
--- NOTE | 2019-11-22 15:33 | CASEMGMT ---
RN CM Discharge Follow-up Phone Call: MILY: Shala Strata: 3 Call Date: 11/22/19 Discharge Date: 11/21/19 Time of Call: 1530 Duration: 1 min Admitting Diagnosis: Gross hematuria RN MISTY attempted to complete follow-up phone call after recent hospitalization. No answer, voice message left with return contact information.
== END 2019-11-21 09:58 | disposition home or self-care (01) | DRG 696 ==
LOC: ED 23:08 → MS3 23:23
PROVIDERS: Admitting Provider Urology; Emergency Provider Emergency Medicine; PCP Family Medicine; Visit Provider Urology
DX: R31.0 Gross hematuria (principal); I47.1 Supraventricular tachycardia; I48.0 Paroxysmal atrial fibrillation; I25.2 Old myocardial infarction; I10 Essential (primary) hypertension; E78.5 Hyperlipidemia, unspecified; Z79.01 Long term (current) use of anticoagulants; Z79.899 Other long term (current) drug therapy; Z79.82 Long term (current) use of aspirin
CPT/HCPCS: 36415; 51702; 74178; 80048; 80053; 81001; 85025; 85027; 85610; 87077; 87086; 87088; 87186; 93005; 99284; 99285; J7030; Q9967; A4216

== ENCOUNTER → 2019-12-01 11:38 | Outpatient (CLI) | payer MEDICARE, OTHER, SELFPAY ==
[2017-05-20 14:31] VITALS: BMI 25.0
[2019-11-20 00:37] VITALS: BMI 25.5
--- NOTE | 2019-12-01 | FLU_PTH ---
PATIENT: HANG KEENAN LOC: [facility] U#:[id number] AGE/SX: 79/M ROOM: RE12/01/[address]: Dr. Devon Briones MD : 1945 BED: DIS: SPEC #: [id number] RECD: 12/01/19 13:48 STATUS: CASSIDY REJesus #: [id number] RHYS: 12/01/19 00:[address]: Devon Briones DEPT: CYTOLOGY RECD BY: Arden Falcon ENTERED: 12/01/19 13:48 SP TYPE: Fluid OTHR DR: Dr. Tapan Cornelius MD Tissues: Urine Procedures: Special Stain Group II Cytospin Fluid HEADER OPERATION: Not noted PRE-OP DIAGNOSIS: Hematuria TISSUE SUBMITTED: Urine for cytology DIAGNOSIS CYTOLOGY Urine for cytology (cytospin): Negative for malignant cells. Acute inflammation. See comment. VERONIKA:antelmo 12/02/19 COMMENT Clinical correlation and appropriate follow up are necessary. CYTOLOGY STUDY Slides are reviewed. CYTOLOGY GROSS Received is 50 ml of sheridan yellow, hazy fluid labeled with the patient's name and and designated per the requisition as urine. Submitted for cytology preparation. / antelmo 12/01/19 TC:2 CPT: 51483
[2019-12-01 13:08] LABS: Cytology, Body Fluid / CSF SEE PATHOLOGY REPORT
== END ==
PROVIDERS: PCP Family Medicine; Referring Provider Urology; Visit Provider Urology
DX: R31.9 Hematuria, unspecified (principal)
CPT/HCPCS: 88108; 88305; 88313

== ENCOUNTER → 2020-02-08 07:40 | Outpatient (CLI) | payer MEDICARE, OTHER, SELFPAY ==
[2017-05-20 14:31] VITALS: BMI 25.0
[2020-01-19 09:31] VITALS: BMI 27.1
--- NOTE | 2020-02-08 07:41 | ECHOD_ITS ---
Reason For Study: Valve Evaluation Procedure This was a 2D Doppler, Color Flow transthoracic echocardiogram. Exam performed in department. Left Ventricle Normal LV size. The estimated ejection fraction is 65 %. No evidence for diastolic dysfunction. No regional wall motion abnormalities noted. Right Ventricle Normal RV size. Normal systolic function. Atria Normal left atrium. Normal right atrium. No doppler evidence for ASD. Mitral Valve There is no mitral valve stenosis. Trivial mitral valve insufficiency. Tricuspid Valve There is no tricuspid stenosis. Trivial tricuspid valve insufficiency. Pulmonary artery systolic pressure is 25 mmHg. Aortic Valve Trisinus/trileaflet aortic valve. Moderate diffuse aortic valve thickening. Mild aortic stenosis. Trivial aortic valve insufficiency. Pulmonic Valve There is no pulmonic valvular stenosis. Trivial pulmonic valve insufficiency. Great Vessels Normal aortic root. Pericardium/Pleural No pericardial effusion. MMode/2D Measurements & Calculations LVIDd: 5.0 cm IVSd: 1.8 cm LVOT diam: 2.0 cm LVIDs: 2.7 cm LVPWd: 1.1 cm LVOT area: 3.3 cm2 RVDd: 4.0 cm FS: 45.7 % Ao root diam: 3.7 cm LAV(MOD-bp): 43.9 ml Aortic Valve Planimetry: 1.0 cm2 LA dimension: 4.3 cm LAV(MOD-bp) Indexed: 25.4 ml/m2 LAV(MOD-sp2): 48.9 ml LAV(MOD-sp4): 39.5 ml LA A4 area: 15.5 cm2 RA A4 area: 12.9 cm2 Time Measurements MV dec time: 0.35 sec Doppler Measurements & Calculations MV E max kevin: 61.1 cm/sec Lat Peak E' Kevin: 6.8 cm/sec Med Peak E' Kevin: 5.4 cm/sec MV A max kevin: 71.3 cm/sec E/E' lat: 8.9 E/E' med: 11.4 MV E/A: 0.86 MV V2 max: 75.5 cm/sec MV P1/2t max kevin: 55.9 cm/sec Ao V2 max: 262.2 cm/sec MV max P.3 mmHg MV P1/2t: 100.7 msec Ao max P.5 mmHg MV V2 mean: 38.3 cm/sec MV dec slope: 162.5 cm/sec2 Ao V2 mean: 181.3 cm/sec MV mean P.70 mmHg Ao mean P.8 mmHg MV V2 VTI: 26.7 cm MVA(P1/2t): 2.2 cm2 Ao V2 VTI: 55.4 cm MVA(VTI): 1.9 cm2 NADEGE(I,D): 0.94 cm2 NADEGE(V,D): 0.95 cm2 LV V1 max: 75.5 cm/sec SV(LVOT): 52.0 ml PA V2 max: 71.3 cm/sec LV V1 max P.3 mmHg LV V1 mean P.94 mmHg LV V1 mean: 43.4 cm/sec LV V1 VTI: 15.8 cm TR max kevin: 220.9 cm/sec TR max P.5 mmHg Interpretation Summary The estimated ejection fraction is 65 %. No evidence for diastolic dysfunction. Trivial mitral valve insufficiency. Trivial tricuspid valve insufficiency. Mild aortic stenosis. Trivial aortic valve insufficiency. Ordering Physician: Ryan Bermudez Referring Physician: Tapan Cornelius Performed By: Bernard Dumont RCS
== END ==
PROVIDERS: PCP Family Medicine; Referring Provider Internal Medicine Cardiovascular Disease; Visit Provider Internal Medicine Cardiovascular Disease
DX: I47.1 Supraventricular tachycardia (principal)
CPT/HCPCS: 93306

== ENCOUNTER 2021-02-14 07:11 | Emergency (ER) | payer MEDICARE, OTHER, SELFPAY ==
[2017-05-20 14:31] VITALS: BMI 25.0
[2021-02-14 07:12] VITALS: BP 169/109; PULSE 65; RESP 6; TEMP 36.7; O2SAT 96; BMI 25.0
--- NOTE | 2021-02-14 07:35 | RAD_ITS ---
STUDY: X-RAY - LEFT HAND, ATTENTION INDEX FINGER REASON FOR EXAM: Male, 75 years old. Injury (left index) TECHNIQUE: 3 view(s) of the finger were obtained. COMPARISON: None. FINDINGS: Normal metacarpal head. Normal metacarpophalangeal joint. Normal proximal phalanx. Normal middle phalanx. Nondisplaced fracture at the base of the distal phalanx of the index finger. Normal proximal interphalangeal joint. There is severe degenerative arthrosis of the distal interphalangeal joint. Diffuse overlying soft tissue swelling. RAD/Finger(s) Min 2 Views IMPRESSION: Degenerative joint disease, as described above. Nondisplaced fracture at the base of the distal phalanx of the index finger. Soft tissue swelling. Electronically Signed: Larry Hewitt MD at 8:09 EDT , Service support ,
--- NOTE | 2021-02-14 07:35 | VDLE_ITS ---
Reason For Study: pain RIGHT GSV is normal. CFV is compressible, spontaneous, phasic, competent and demonstrates normal augmentation. FV is compressible, spontaneous, phasic, competent and demonstrates normal augmentation. POP V is compressible, spontaneous, phasic, competent and demonstrates normal augmentation. T/P Trunk is compressible. PTV is compressible. RT PerV is compressible. Procedure This is a venous duplex using B-mode, color flow and spectral Doppler. Exam performed portable in ED. The exam was abbreviated due to the COVID 19 protocol. The exam was diagnostic. A preliminary report was called and/or faxed to Dr. Labyo. VL/Venous Duplex US, Unilateral Interpretation Summary There is no evidence of right lower extremity deep vein thrombosis. Right great saphenous vein appears patent and compressible segmentally. Abbreviated COVID-19 protocol Ordering Physician: Seth Laboy Performed By: Morales Jasmine RVT
--- NOTE | 2021-02-14 07:38 | EX.ED.UPPERE ---
HPI History of Present Illness Chief Complaint: Upper Extremity Injury Informant: patient and spouse/S.O. Occured/Mechanism Mechanism/Context: Yes injury Onset/Context/Timing Onset: Today and Hours Context: Sudden Onset Timing: Continuous Quality of Pain: Dull Current Severity: Mild Maximum Severity: Mild Associated Symptoms Associated Symptoms: Negative for Parasthesia and Weakness Narrative Narrative: 75-year-old male history of CAD with a stent on Coumadin. Patient works as a [employer]. Today he has left index finger caught in a mixer machine causing a laceration and injury. This occurred about an hour ago. Unsure of his last tetanus. Also he his is concerned because he has had right calf pain for the last several weeks. It is better with walking and worse with just sitting or lying. He denies any chest pain or shortness of breath. He is on Coumadin. He has never had a DVT or PE. He has had no recent travel, surgery or immobilization. He denies knee pain. Tetanus Immunization: Unknown Prior similar symptoms: No Recent Illness/Hospitalization: No [facility] Medical History (Updated 02/14/21 @ 09:[address] Seth Laboy MD) Atelectasis Atherosclerotic heart disease of [place] coronary artery without angina pectoris Carotid dissection, 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) Chest pain Chest tightness Hearing loss of left ear Hematuria History of BPH History of kidney stones History of pericarditis (~04/2017) Hyperlipidemia Hypertension Hypothyroidism Nonrheumatic aortic (valve) stenosis Nonrheumatic mitral valve regurgitation SERGO (obstructive sleep apnea) Paroxysmal A-fib Right inguinal hernia Thymoma, malignant Home Medications levothyroxine 75 mcg PO DAILY 01/07/17 [History Last Taken 11/19/19 05:00] therapeutic multivitamin 1 ea PO DAILY 01/07/17 [History Last Taken 11/19/19 08:00] coenzyme Q10 100 mg PO DAILY 08/13/17 [History Last Taken 11/19/19 08:00] rosuvastatin 5 mg tablet 5 mg PO DAILY 10/28/18 [History Last Taken 11/19/19 08:00] nitroglycerin 0.4 mg sublingual tablet 0.4 mg SUBLINGUAL Q5-15M PRN #25 tab 12/21/18 [Rx Last Taken Unknown] lysine 500 mg tablet 500 mg PO DAILY 06/09/19 [History Last Taken 11/19/19 08:00] aspirin 81 mg PO DAILY 11/19/19 [History Last Taken 11/19/19 08:00] flecainide 50 mg PO BID 11/19/19 [History Last Taken 11/19/19 18:00] finasteride 5 mg PO DAILY #90 tab 11/21/19 [Rx Last Taken Unknown] carvedilol 6.25 mg tablet 6.25 mg PO DAILY tab 01/19/20 [History Last Taken Unknown] warfarin 7.5 mg tablet 7.5 mg PO DAILY tab 01/19/20 [History Last Taken Unknown] amlodipine 2.5 mg tablet 2.5 mg PO DAILY #90 tab 02/07/20 [Rx Last Taken Unknown] cephalexin 500 mg PO Q8H 7 Days #21 cap 02/14/21 [Rx Last Taken Unknown] Allergy/AdvReac Type Severity Reaction Status Date / Time cefuroxime Allergy Intermediate Rash Verified 02/14/21 07:13 rosuvastatin [From Crestor] AdvReac Severe severe Verified 02/14/21 07:13 myalgias lisinopril AdvReac Intermediate didn't Verified 02/14/21 07:13 control bp well, labile cephalexin AdvReac Pain in Verified 02/14/21 07:13 joints levofloxacin [From Levaquin] AdvReac achiness Verified 02/14/21 07:13 Family History Unknown No problems noted. Surgical History H/O right and left heart catheterization (11/12/18) History of thymectomy (04/23/17) Stented coronary artery (11/23/18) Social History Smoking Status: Never smoker ROS ROS ED ROS Narrative Denies recent illness. Review of Systems ROS Unobtainable: Denies due to encephalopathy Constitutional Constitutional ED: Denies frequent falls Eyes Eyes: Denies change in vision ENT ENT ED: Denies ear pain or sore throat Cardiovascular Cardiovascular: Denies chest pain Respiratory/Chest Respiratory/Chest: Denies cough or dyspnea Gastrointestinal Gastrointestinal: Denies abdominal pain, diarrhea, nausea or vomiting Genitourinary Genitourinary ED: Denies dysuria Musculoskeletal Musculoskeletal: Denies myalgias Integumentary Denies rash Neurologic Neurologic: Denies headache(s) Psychiatric Psychiatric: Denies depression Endocrine Endocrinology: Denies polyuria Hematologic/Lymphatic Hematologic/Lymphatic: Denies easy bruising Allergic/Immunologic Allergic/Immunologic ED: Denies urticaria EXAM Physical Exam Narrative Exam Narrative: Well-appearing male no acute distress. Vital signs stable afebrile. H EENT exam unremarkable. Lungs are clear. Heart regular rhythm. Abdomen soft nontender. Moving all 4 extremities. Neurovascularly intact. The left index finger he has flexion-extension there is a large laceration over the finger. It appears irregular in shape that is probably from chronic arthritis but an x-ray will be obtained to rule out fracture. There is no obvious foreign body noted. He has normal touch sensation. There is oozing of blood. The other fingers thumb and palm are unremarkable. Both lower extremities are unremarkable. There is no swelling to his right calf. There is no cord. He has range of motion to his knee ankle and foot. There is no bony deformity. Neurologic exam unremarkable. Const Vital Signs: 02/14/21 07:12 Temperature 98.1 F Temperature Source Temporal Pulse Rate 65 Respiratory Rate 6 L Blood Pressure 169/109 H Blood Pressure Mean 129 Pulse Ox 96 Oxygen Delivery Method Room Air Positive well nourished and well developed; Negative for obese, cachectic, contractures or unkempt General Appearance ED: well developed and NAD; Negative for unkempt, cachectic or contractures Nutritional Appearance: Negative for cachectic or obese HEENT Reports moist mucous membranes normocephalic and atraumatic Eyes PERRL and EOMs intact bilaterally Neck full ROM and supple General: Negative for tenderness Chest Wall inspection of chest normal and palpation of chest normal Resp normal respiratory effort and clear to auscultation bilaterally Effort and Inspection: Negative for pain with movement Cardio regular rate, regular rhythm, S1 normal heart sound, S2 normal heart sound and no murmurs GI non-tender, non-distended and no masses Auscultation: normoactive bowel sounds Palpation: soft; Negative for tender or guarding Back/Spine no CVA tenderness General Back: Negative for CVA tenderness Extremity normal to inspection Extremity Narrative: Except laceration left index finger on the palmar aspect. The large wound. He has flexion, extension and touch sensation. Right calf is nontender. Nonswollen. No cords. He has normal flexion-extension of the right hip, knee ankle and foot. He is a strong DP pulse. Neuro oriented x3, CN's II-XII intact bilaterally and moves all extremities Sensorium / Orientation: alert, oriented to person, oriented to place and oriented to time; Negative for orientation impaired, lethargic or stuporous Motor Exam: strength 5/5 throughout Psych mental status grossly normal Appearance: Negative for unkempt Skin Lesions: no lesions Rashes: no rashes MDM MDM MDM Narrative Medical decision making narrative: Patient has a significant laceration left index finger. X-ray will be obtained. Tetanus will be updated. He is on Coumadin not level be checked as has been checked in a while and also a venous study to be done of his right calf even though clinically I do not think he has a DVT. The left index finger may need to be washed out thoroughly. Cleaned and closed. Lab Data Attestation: I reviewed the patient's lab results. Lab results narrative: INR is 2.7. Venous study of his right lower extremity shows no DVT as read by the satellite dish technician reported to me. Radiography Diagnostic Testing: X-ray right index finger three views interpreted by myself shows arthritis but no acute fracture. I went over the x-ray results and other test results with the patient and his . Procedures Lacerations Left index finger: Length: 3 in Depth: Muscle Shape: Linear Prep: Sterile Conditions and Shure-Clens Laceration repair: Digital block, Irrigated, Lidocaine, Nerve block, Skin sutures and Wound explored Number of Sutures/Ming: 7 Suture Information: Ethilon Comment: Patient has a deep irregular linear laceration on the palmar aspect of his left index finger. Approximately 3 inches in length. There is a secondary wound on the radial side that has loss of tissue. There is significant swelling. The finger is neurovascularly intact. The laceration involves the skin and subcu tissue digital muscle on the flexor side and is down to the flexor tendon but I do not see any obvious tendon laceration. He has full flexion-extension of the digit. Digital block was performed. Wound was cleaned with Shur-Clens copiously irrigated and explored. I did not see any foreign bodies. Closed as best as I could with 7 simple interrupted 3-0 Ethilon sutures. I needed thicker suturing to approximate the wound. Patient tolerated procedure well. Patient, his and myself discussed the wound in his care and follow-up. He will be placed on Keflex. Wound dressing and aluminum splint. Discharge Plan Triage Chief Complaint: Upper Extremity Injury ED Provider: Seth Laboy Dx/Rx/DC Orders Clinical Impression: Finger laceration Instructions: ED Laceration, Hand: All Closures Prescriptions: New cephalexin 500 mg capsule 500 mg PO Q8H 7 Days Qty: 21 RF: 0 No Action rosuvastatin 5 mg tablet 5 mg PO DAILY RF: 0 lysine 500 mg tablet 500 mg PO DAILY RF: 0 nitroglycerin 0.4 mg tablet, sublingual 0.4 mg SUBLINGUAL Q5-15M PRN (Reason: chest pain) Qty: 25 RF: 3 warfarin 7.5 mg tablet 7.5 mg PO DAILY RF: 0 carvedilol 6.25 mg tablet 6.25 mg PO DAILY RF: 0 therapeutic multivitamin 1 EACH tablet 1 ea PO DAILY RF: 0 levothyroxine 75 MCG tablet 75 mcg PO DAILY RF: 0 coenzyme Q10 100 MG capsule 100 mg PO DAILY RF: 0 flecainide 100 MG tablet 50 mg PO BID RF: 0 aspirin 81 MG tablet,delayed release (DR/EC) 81 mg PO DAILY RF: 0 finasteride 5 MG tablet 5 mg PO DAILY Qty: 90 RF: 3 amlodipine 2.5 mg tablet 2.5 mg PO DAILY Qty: 90 RF: 3 Primary Care Provider: Tapan Cornelius Referrals: Yossi Mondragon MD [STAFF PHYSICIAN] - 1 Week Tapan Cornelius MD [Primary Care Provider] - As Needed Activity Restrictions/Additional Instructions: This is a bad laceration it was deep and just above the tendon. You need to take very good care of it. Ice and elevate to decrease pain and swelling. Tylenol for pain. Clean daily with soap and water or peroxide and water at least once a day if not twice a day. Apply antibiotic ointment daily. Stitches out in 14 days. There are 7 stitches. I used larger thicker stitches to approximate the wound better. Any signs of infection such as redness streaks fever or pus return. Antibiotic Keflex 1 pill 3 times a day to prevent infection. Call and follow-up with either Dr. Mondragon or your primary care physician to ensure this is improving. This wound will take weeks to heal. Keep it dry and clean except when cleaning it. Have your Coumadin level rechecked in 2 to 3 weeks because the antibiotic may change the Coumadin level. Disposition Disposition: Home, Self Care
[2021-02-14] MEDS: Diphth,Pertuss(Acell),Tet Vac 0.5 ML Vial IM (08:00)
[2021-02-14] MEDS: Lidocaine 1% (20 ml mdv) 20 ML Vial 10 ML INFILT (08:01)
[2021-02-14 08:03] LABS: International Normalized Ratio 2.6
== END 2021-02-14 09:43 | disposition home or self-care (01) ==
PROVIDERS: Emergency Provider Emergency Medicine; PCP Family Medicine
DX: S61.211A Laceration without foreign body of left index finger without damage to nail, initial encounter (principal); I25.10 Atherosclerotic heart disease of native coronary artery without angina pectoris; M79.661 Pain in right lower leg; Z95.5 Presence of coronary angioplasty implant and graft; Z87.442 Personal history of urinary calculi; X58.XXXA Exposure to other specified factors, initial encounter
CPT/HCPCS: 12002; 73140; 85610; 90471; 90715; 93971; 99283

== ENCOUNTER 2021-02-15 06:42 | Emergency (ER) | payer MEDICARE, OTHER, SELFPAY ==
[2017-05-20 14:31] VITALS: BMI 25.0
[2021-02-15 06:44] VITALS: BP 167/99; PULSE 76; RESP 16; TEMP 36.6; O2SAT 96; BMI 25.7
--- NOTE | 2021-02-15 07:08 | EDS_ITS ---
HPI History of Present Illness Chief Complaint: Wound Informant: patient and family Narrative Narrative: Patient is a 75-year-old male that is on Coumadin therapy secondary to proximal atrial fibrillation presenting with bleeding wound. Patient sustained a laceration to his left index finger yesterday. Laceration repair was performed however there is another part that had an avulsion that cannot be sutured. This part is continued to bleed since she has gone home. Patient's has change his bandage about 5 times and then came back because it kept bleeding. Patient denies any lightheadedness or chest pain. Patient's INR was 2.6 yesterday. [facility] Medical History (Updated 02/15/21 @ 08:[address] Greta Callahan, DO) Atelectasis Atherosclerotic heart disease of [place] coronary artery without angina pectoris Carotid dissection, 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) Chest pain Chest tightness Hearing loss of left ear Hematuria History of BPH History of kidney stones History of pericarditis (~04/2017) Hyperlipidemia Hypertension Hypothyroidism Nonrheumatic aortic (valve) stenosis Nonrheumatic mitral valve regurgitation SERGO (obstructive sleep apnea) Paroxysmal A-fib Right inguinal hernia Thymoma, malignant Home Medications levothyroxine 75 mcg PO DAILY 01/07/17 [History Last Taken 11/19/19 05:00] therapeutic multivitamin 1 ea PO DAILY 01/07/17 [History Last Taken 11/19/19 08:00] coenzyme Q10 100 mg PO DAILY 08/13/17 [History Last Taken 11/19/19 08:00] rosuvastatin 5 mg tablet 5 mg PO DAILY 10/28/18 [History Last Taken 11/19/19 08:00] nitroglycerin 0.4 mg sublingual tablet 0.4 mg SUBLINGUAL Q5-15M PRN #25 tab 12/21/18 [Rx Last Taken Unknown] lysine 500 mg tablet 500 mg PO DAILY 06/09/19 [History Last Taken 11/19/19 08:00] aspirin 81 mg PO DAILY 11/19/19 [History Last Taken 11/19/19 08:00] flecainide 50 mg PO BID 11/19/19 [History Last Taken 11/19/19 18:00] finasteride 5 mg PO DAILY #90 tab 11/21/19 [Rx Last Taken Unknown] carvedilol 6.25 mg tablet 6.25 mg PO DAILY tab 01/19/20 [History Last Taken Unknown] warfarin 7.5 mg tablet 7.5 mg PO DAILY tab 01/19/20 [History Last Taken Unknown] amlodipine 2.5 mg tablet 2.5 mg PO DAILY #90 tab 02/07/20 [Rx Last Taken Unknown] cephalexin 500 mg PO Q8H 7 Days #21 cap 02/14/21 [Rx Last Taken Unknown] Allergy/AdvReac Type Severity Reaction Status Date / Time cefuroxime Allergy Intermediate Rash Verified 02/15/21 06:49 rosuvastatin [From Crestor] AdvReac Severe severe Verified 02/15/21 06:49 myalgias lisinopril AdvReac Intermediate didn't Verified 02/15/21 06:49 control bp well, labile cephalexin AdvReac Pain in Verified 02/15/21 06:49 joints levofloxacin [From Levaquin] AdvReac achiness Verified 02/15/21 06:49 Family History Unknown No problems noted. Surgical History H/O right and left heart catheterization (11/12/18) History of thymectomy (04/23/17) Stented coronary artery (11/23/18) Social History Smoking Status: Never smoker ROS ROS ED Constitutional Constitutional ED: Denies chills, fever(s) or malaise Eyes Eyes: Denies blurry vision or loss of vision ENT ENT ED: Denies rhinorrhea or sore throat Cardiovascular Cardiovascular: Denies chest pain or dizziness Respiratory/Chest Respiratory/Chest: Denies cough or dyspnea Gastrointestinal Gastrointestinal: Denies nausea or vomiting Genitourinary Genitourinary ED: Denies dysuria or hematuria Musculoskeletal Musculoskeletal: Denies arthralgias or myalgias Integumentary Reports other Details: bleeding wound ; Denies rash or wounds Neurologic Neurologic: Denies focal weakness or headache(s) Psychiatric Psychiatric: Denies anxiety or behavioral changes EXAM Physical Exam Const Vital Signs: 02/15/21 06:44 Temperature 97.8 F Temperature Source Temporal Pulse Rate 76 Respiratory Rate 16 Blood Pressure 167/99 H Blood Pressure Mean 121 Pulse Ox 96 Oxygen Delivery Method Room Air Positive well nourished and well developed General Appearance ED: well developed HEENT Reports moist mucous membranes Negative for trauma Eyes PERRL and EOMs intact bilaterally General Eye ED: Negative for pale conjunctiva Neck supple Resp normal respiratory effort Extremity Extremity Narrative: Laceration to left index finger with associated surrounding pain General Extremety ED: Yes tenderness Neuro oriented x3 and no sensory deficits noted Sensorium / Orientation: alert Psych mental status grossly normal Skin Skin Narrative: Patient has a laceration along the Left index finger that is sutured. On the distal aspect there is about a 1 cm area of avulsion of the skin that is oozing steadily. MDM MDM MDM Narrative Medical decision making narrative: Patient evaluated for bleeding wounds. He appears nontoxic in no acute distress. Is hemodynamically stable. He does not have any symptoms of acute blood loss including lightheadedness or dizziness. Bleeding is controlled with direct pressure and Gelfoam. Pressure bandages applied. Patient counseled on wound care as well as return precautions. He is instructed to hold his Coumadin today should he have further bleeding. Will follow up with his Coumadin clinic for INR check on. Patient is counseled on signs and symptoms requiring return to the emergency room. Patient verbalizes agreement and understand this plan. Patient discharged home in stable and improved condition. Discharge Plan Triage Chief Complaint: Wound ED Provider: Greta Callahan Dx/Rx/DC Orders Clinical Impression: Finger laceration, Bleeding from wound, Chronic anticoagulation Instructions: ED Post Op Wound Check, Bleeding, ED Skin Avulsion, ED Wound Check (No Infection) Prescriptions: No Action rosuvastatin 5 mg tablet 5 mg PO DAILY RF: 0 lysine 500 mg tablet 500 mg PO DAILY RF: 0 nitroglycerin 0.4 mg tablet, sublingual 0.4 mg SUBLINGUAL Q5-15M PRN (Reason: chest pain) Qty: 25 RF: 3 warfarin 7.5 mg tablet 7.5 mg PO DAILY RF: 0 carvedilol 6.25 mg tablet 6.25 mg PO DAILY RF: 0 therapeutic multivitamin 1 EACH tablet 1 ea PO DAILY RF: 0 levothyroxine 75 MCG tablet 75 mcg PO DAILY RF: 0 coenzyme Q10 100 MG capsule 100 mg PO DAILY RF: 0 flecainide 100 MG tablet 50 mg PO BID RF: 0 aspirin 81 MG tablet,delayed release (DR/EC) 81 mg PO DAILY RF: 0 finasteride 5 MG tablet 5 mg PO DAILY Qty: 90 RF: 3 cephalexin 500 mg capsule 500 mg PO Q8H 7 Days Qty: 21 RF: 0 amlodipine 2.5 mg tablet 2.5 mg PO DAILY Qty: 90 RF: 3 Primary Care Provider: Tapan Cornelius Referrals: Tapan Cornelius MD [Primary Care Provider] - Activity Restrictions/Additional Instructions: Please follow-up with your doctor that manages your INR/Coumadin level for recheck on Thursday. Hold your Coumadin today and resume tomorrow if you have no further bleeding. If you have further bleeding remove the bandages, applied direct pressure and then apply remaining Gelfoam directly to the wound with further pressure. Return to the emergency room if you cannot get bleeding controlled. Disposition Disposition: Home, Self Care Discharge Date/Time: 02/15/21 08:43
[2021-02-15] MEDS: Morphine 4 MG/ML Syringe IM (07:54)
[2021-02-15] MEDS: Acetaminophen 325 MG Tablet 650 MG PO (07:55)
--- NOTE | 2021-02-15 08:28 | ED.RN ---
DRESSING APPLIED TO FINGER. SURGIFOAM PLACED FIRST, FOLLOWED BY 2X2, THEN TUBE GAUZE. PRESSURE THEN REINFORCED WITH COBAN. PT INSTRUCTED ABOUT CARE
[2021-02-15] MEDS: Gelfoam 12-7 MM Sponge (1) 1 EACH TOPICAL (08:33)
== END 2021-02-15 08:43 | disposition home or self-care (01) ==
PROVIDERS: Emergency Provider Emergency Medicine; PCP Family Medicine
DX: S61.211A Laceration without foreign body of left index finger without damage to nail, initial encounter (principal); I25.10 Atherosclerotic heart disease of native coronary artery without angina pectoris; Z79.01 Long term (current) use of anticoagulants; Z87.442 Personal history of urinary calculi; X58.XXXA Exposure to other specified factors, initial encounter
CPT/HCPCS: 96372; 99282

== ENCOUNTER → 2021-02-18 09:04 | Outpatient (CLI) | payer MEDICARE, OTHER, SELFPAY ==
[2017-05-20 14:31] VITALS: BMI 25.0
[2021-02-18 10:22] LABS: PSA,Total- Diagnostic 3.42 ng/mL (0.0-4.0)
== END ==
PROVIDERS: PCP Family Medicine; Referring Provider Urology; Visit Provider Urology
DX: R97.20 Elevated prostate specific antigen [PSA] (principal)
CPT/HCPCS: 36415; 84153

== ENCOUNTER 2021-07-01 07:35 | Outpatient (CLI) | payer MEDICARE, OTHER, SELFPAY ==
[2017-05-20 14:31] VITALS: BMI 25.0
--- NOTE | 2021-07-01 07:45 | CT_ITS ---
STUDY: CT RIGHT LOWER EXTREMITY WITHOUT CONTRAST REASON FOR EXAM: Right knee osteoarthritis, surgical planning. TECHNIQUE: Transaxial CT imaging of the lower extremity was performed. Coronal and sagittal images were reformatted. Individualized dose optimization techniques were used for this CT. COMPARISON: None. FINDINGS: Knee: There is a unicompartmental medial femorotibial arthroplasty. There are small marginal osteophytes of the lateral femorotibial compartment and mild joint space narrowing at the mesial aspect of the lateral femorotibial compartment (coronal reconstruction 30). There are marginal osteophytes, subchondral cystic change especially of the femoral trochlea and and joint space narrowing of the patellofemoral compartment (axial image 294). There is a small joint effusion. There is vascular calcification. Hip: There are small marginal osteophytes of the femoral head, a small subchondral cyst of the acetabulum and joint space narrowing of the posterior aspect of the right hip (axial image 28). There are prostatic calcifications. Ankle: Normal tibiotalar, posterior subtalar and calcaneocuboid articulations. There is mild subchondral cystic change of the head of the talus CT/Extremity Lower without Contra IMPRESSION: Right knee osteoarthritis, unicompartmental medial femorotibial arthroplasty. Electronically Signed: Wu Rodríguez MD at 15:01 EST ,
[2021-07-01 09:07] LABS: AST(SGOT) 25 U/L (15-37); Alanine Aminotransfer ALT/SGPT 29 U/L (16-61); Albumin, Serum 3.9 g/dL (3.2-5.0); Alkaline Phosphatase 77 U/L (45-117); Bilirubin, Direct 0.18 mg/dL (0.00-0.30); Cholesterol 236 mg/dL (200); Globulin 4.3 g/dL (2.2-4.2); High Density Lipoprotein 90 mg/dL; Protein, Total 8.2 g/dL (6.4-8.2); Triglycerides 85 mg/dL; Very Low Density Lipoprotein 17 mg/dL (5-40)
== END 2021-07-01 23:59 | disposition home or self-care (01) ==
PROVIDERS: Nurse Practitioner Family; PCP Family Medicine; Referring Provider Specialist; Visit Provider Specialist
DX: E03.9 Hypothyroidism, unspecified (principal); E78.00 Pure hypercholesterolemia, unspecified; Z96.651 Presence of right artificial knee joint
CPT/HCPCS: 73700; 80061; 80076

== ENCOUNTER 2021-07-09 06:01 | Outpatient (CLI) | payer MEDICARE, OTHER, SELFPAY ==
[2017-05-20 14:31] VITALS: BMI 25.0
--- NOTE | 2021-07-09 06:04 | ECHOCS_ITS ---
Reason For Study: AV Disorder Procedure This was a 2D Doppler, Color Flow transthoracic echocardiogram. The study was technically difficult. Contrast injection was performed. Exam performed in department. Left Ventricle Normal LV size. Left ventricular systolic function is normal. The estimated ejection fraction is 65 %. Diastolic function is indeterminate. No regional wall motion abnormalities noted. Right Ventricle Normal RV size. Normal systolic function. Atria Normal left atrium. Normal right atrium. No doppler evidence for ASD. Mitral Valve There is mild to moderate mitral annular calcification. Extensionthe mitral annular calcification onto the base of the posterior mitral valve leaflet. Mild (1+) mitral valve insufficiency. Tricuspid Valve Normal tricuspid valve. Mild tricuspid valve insufficiency. Right ventricular systolic pressure estimated to be 30 mmHg. Aortic Valve Trisinus/trileaflet aortic valve. Mild diffuse aortic valve thickening. Moderate focal aortic valve thickening. Moderate focal aortic valve calcification. Moderate to severe aortic valve stenosis. Trivial aortic valve insufficiency. Pulmonic Valve The pulmonic valve is not well visualized. Great Vessels Normal sized aortic root. Pericardium/Pleural No pericardial effusion. Medication 22 gauge I.V. with prn adaptor inserted into right arm. Diluted definity 4ml given slow IV push to enhance endocardial definition. MMode/2D Measurements & Calculations LVIDd: 4.2 cm IVSd: 1.6 cm LVOT diam: 2.0 cm LVIDs: 3.0 cm LVPWd: 1.3 cm RVDd: 3.6 cm FS: 29.4 % LVOT area: 3.2 cm2 Ao root diam: 3.7 cm LAV(MOD-bp): 55.8 ml LA A4 area: 18.1 cm2 ACS: 0.34 cm LAV(MOD-bp) Indexed: 31.0 ml/m2 LAV(MOD-sp2): 57.2 ml LAV(MOD-sp4): 53.8 ml RA A4 area: 11.5 cm2 Time Measurements MV dec time: 0.42 sec Doppler Measurements & Calculations MV E max kevin: 58.0 cm/sec Lat Peak E' Kevin: 2.6 cm/sec Med Peak E' Kevin: 4.1 cm/sec MV A max kevin: 94.9 cm/sec E/E' lat: 21.9 E/E' med: 14.3 MV E/A: 0.61 MV V2 max: 89.3 cm/sec MV P1/2t max kevin: 64.3 cm/sec Ao V2 max: 337.9 cm/sec MV max P.2 mmHg MV P1/2t: 110.3 msec Ao max P.7 mmHg MV V2 mean: 54.2 cm/sec MV dec slope: 170.7 cm/sec2 Ao V2 mean: 231.5 cm/sec MV mean P.3 mmHg Ao mean P.8 mmHg MV V2 VTI: 21.8 cm MVA(P1/2t): 2.0 cm2 Ao V2 VTI: 68.9 cm MVA(VTI): 3.2 cm2 NADEGE(I,D): 1.0 cm2 NADEGE(V,D): 0.78 cm2 LV V1 max: 81.6 cm/sec SV(LVOT): 69.1 ml PA V2 max: 154.1 cm/sec LV V1 max P.7 mmHg LV V1 mean P.6 mmHg LV V1 mean: 59.6 cm/sec LV V1 VTI: 21.5 cm TR max kevin: 260.0 cm/sec TR max P.0 mmHg ECHO/Echo Complete W/ Contrast Interpretation Summary The study was technically difficult. Contrast injection was performed. Left ventricular systolic function is normal. The estimated ejection fraction is 65 %. There is mild to moderate mitral annular calcification. Extensionthe mitral annular calcification onto the base of the posterior mitral valve leaflet. Mild (1+) mitral valve insufficiency. Mild tricuspid valve insufficiency. Moderate to severe aortic valve stenosis. Trivial aortic valve insufficiency. Right ventricular systolic pressure estimated to be 30 mmHg. Diastolic function is indeterminate. Ordering Physician: Roger Kamara Referring Physician: Tapan Cornelius Performed By: Bernard Dumont RCS
--- NOTE | 2021-07-09 13:24 | STRESSREP_ITS ---
Stress Test Report Date: 07-09-2021 Procedure: Pharmacologic stress nuclear imaging study Indications: CAD; PCI; PAF; aortic valve disorder; preoperative evaluation Consent: Per the patient Procedure: The patient underwent pharmacologic (Regadenoson 0.4mg ) evaluation with a peak heart rate of 93 beats per minute (65%predicted maximal heart rate) and a peak blood pressure of 144/92 mmHg. The baseline ECG demonstrated normal sinus rhythm. The peak pharmacologic ECG demonstrated no obvious ECG changes. There were no cardiac dysrhythmias pretest, during pharmacologic infusion, or recovery. There was no complaint of chest discomfort during pharmacologic infusion or recovery. The examination was discontinued secondary to completion of protocol. Impression: 1. Pharmacologic (Regadenoson) evaluation 2. Peak pharmacologic ECG with no obvious ECG changes. 3. There were no cardiac dysrhythmias pretest, during pharmacologic infusion, or recovery. 4. Nuclear images pending Myocardial perfusion imaging study: Technique: The patient was injected with 10.9 millicuries of technetium 99m Cardiolite and subsequently rest SPECT Cardiolite nuclear imaging was obtained in the horizontal long, vertical long, and short axis views. The patient underwent pharmacologic (Regadenoson) evaluation with a peak heart rate of 93 beats per minute (65% percent predicted maximal heart rate) and a peak blood pressure of 144/92 mmHg. The patient was injected with 33.6 millicuries of technetium 99m Cardiolite and subsequently stress SPECT Cardiolite nuclear imaging was obtained in the horizontal long, vertical long, and short axis views. A gated Cardiolite study at peak stress was obtained. Interpretation: Rest and stress SPECT Cardiolite nuclear imaging status post realignment, normalization, and attenuation correction demonstrate relative uniform tracer uptake and myocardial perfusion appearing within normal limits. There is end systolic thickening and brightening. The gated Cardiolite study demonstrates myocardial thickening and inward wall motion. The reported LVEF is 57%. Impression: 1. Rest and stress SPECT Cardiolite nuclear imaging demonstrate relative uniform tracer uptake and myocardial perfusion appearing within normal limits. 2. The gated Cardiolite study reports an LVEF of 57%. This note was generated with [employer] software. It may contain incorrect words, spelling, and punctuation that were not noted in checking the note before signing.
== END 2021-07-09 23:59 | disposition home or self-care (01) ==
LOC: CVS 06:02
PROVIDERS: PCP Family Medicine; Referring Provider Internal Medicine Cardiovascular Disease; Visit Provider Internal Medicine Cardiovascular Disease
DX: Z01.810 Encounter for preprocedural cardiovascular examination (principal); I47.1 Supraventricular tachycardia; I48.0 Paroxysmal atrial fibrillation; I25.10 Atherosclerotic heart disease of native coronary artery without angina pectoris; I35.0 Nonrheumatic aortic (valve) stenosis; Z95.5 Presence of coronary angioplasty implant and graft
CPT/HCPCS: 78452; 93017; 93306; A9500; Q9957; A4216; C8929; J2785

== ENCOUNTER 2021-07-10 12:19 | Observation (INO) | payer MEDICARE, OTHER, SELFPAY ==
[2017-05-20 14:31] VITALS: BMI 25.0
[2021-07-01 08:26] LABS: Absolute Lymphocyte Count 1.29 X10^3/uL (0.83-4.51); Absolute Neutrophil Count 5.3 X10^3/uL (2.0-7.7); Basophil# 0.05 X10^3/uL; Basophil% 0.6 % (0-1); Eosinophil# 0.36 X10^3/uL; Eosinophils% 4.6 % (0-5); Hematocrit 51.9 % (40-54); Lymphocyte # 1.29 X10^3/ul (0.83-4.51); Lymphocyte % 16.4 % (19-41); Mean Corp Hgb Conc 32.8 g/dL (32-36); Mean Corpuscular Hgb 29.7 pg (27.0-32.0); Mean Corpuscular Volume 90.6 fL (80-94); Mean Platelet Vol. 9.2 fl (6.2-12.0); Monocyte% 10.2 % (0-10); NRBC Flagged by Analyzer 0 % (0-5); Neutrophil % 67.6 % (47-70); Platelet Count 364 K/mm3 (150-450); RBC Distribution Width CV 14.6 % (11.6-14.6); RBC Distribution Width SD 48.4 fl (35.1-43.9); Red Blood Count 5.73 M/mm3 (4.6-6.2); White Blood Count 7.9 K/mm3 (4.4-11.0)
[2021-07-01 09:02] LABS: Anion Gap 2 (5-15); BUN 20 mg/dL (7-18); BUN/Creat Ratio 20.2 RATIO (10-20); Calcium,Total 9.2 mg/dL (8.5-10.1); Chloride 107 mmol/L (98-107); Creatinine, Serum 0.99 mg/dL (0.70-1.30); EST Glomerular Filtration Rate 78 mL/min (>60); Est Glom Filt Rate - Afr Amer 94 mL/min (>60); Glucose 101 mg/dL (74-106); Potassium 4.4 mmol/L (3.5-5.1); Sodium Level 139 mmol/L (136-145)
[2021-07-02 16:16] LABS: Thyroid Stim Hormone (TSH) 7.24 uIU/mL (0.358-3.74)
[2021-07-04 10:27] LABS: MG Sendout 2.2 mg/dL (1.6-2.3)
--- NOTE | 2021-07-09 06:17 | RAD_ITS ---
STUDY: X-RAY CHEST REASON FOR EXAM: Male, 75 years old. Preop TECHNIQUE: PA and lateral views of the chest. COMPARISON: Comparison is made with prior study dated 07/06/2019. FINDINGS: Stable mild linear scarring at the left lung base. There is no demonstrated pleural abnormality. Normal size heart. Normal mediastinum and madeline. Normal visualized pulmonary arteries. There is atherosclerotic tortuosity of the aortic arch and descending thoracic aorta. There are diffuse degenerative changes of the visualized thoracic spine. Normal visualized ribs, clavicles, and shoulders. There is no demonstrated abnormality of the visualized soft tissue structures of the upper abdomen. RAD/Chest PA and Lateral IMPRESSION: Stable minimal linear scarring at the left lung base. Electronically Signed: Larry Hewitt MD at 14:18 EST ,
[2021-07-10] VITALS (11 sets, daily range): BP systolic 119–135; BP diastolic 76–89; PULSE 67–88; RESP 16–18; TEMP 36.1–37; O2SAT 91–98; BMI 27.2
[2021-07-10] MEDS: Lactated Ringers 1,000 ML 999 ML IV ×2 (09:49→15:07)
[2021-07-10] MEDS: Acetaminophen 500 MG Tablet 1000 MG PO ×2 (09:50→20:42)
[2021-07-10] MEDS: Celecoxib 200 MG Capsule 400 MG PO (09:50)
[2021-07-10] MEDS: Gabapentin 600 MG Tablet PO (09:50)
[2021-07-10 09:51] LABS: Bedside Glucose 85 mg/dL (70-110)
[2021-07-10 10:02] LABS: International Normalized Ratio 1.1; Partial Thromboplast Time 33.2 Seconds (24.1-36.2); Prothrombin Time (Protime)PT. 13.3 SECONDS (11.7-14.9)
[2021-07-10] MEDS: Lactated Ringers 1,000 ML 125 ML IV (10:30)
[2021-07-10] MEDS: Lactated Ringers 1,000 ML 75 ML IV (11:53)
[2021-07-10] MEDS: Cefazolin 2 GM in 0.9% Normal Saline 100 ML IV (12:10)
[2021-07-10] MEDS: TXA 1000mg in NS100 100ml (IVPB at Incision) 660 MG IV (12:20)
--- NOTE | 2021-07-10 12:20 | RAD_ITS ---
STUDY: X-RAY - RIGHT KNEE REASON FOR EXAM: Male, 75 years old. Post op -- AP and Lateral xray of operative knee in PACU TECHNIQUE: 2 view(s) of the knee. COMPARISON: None. FINDINGS: Normal visualized distal femur. Normal visualized proximal tibia and fibula. Normal proximal tibiofibular articulation. The patient is status post total knee replacement. There is good alignment. Postoperative soft tissue changes. RAD/Knee 1 or 2 Views IMPRESSION: Status post total knee replacement. There is good alignment. Postoperative soft tissue changes. Electronically Signed: Larry Hewitt MD at 15:33 EST ,
[2021-07-10] MEDS: dexAMETHasone 10 MG/ML Vial IV (12:30)
[2021-07-10] MEDS: TXA 1000mg in NS100 100ml (IVPB at Closure) 660 MG IV (14:10)
--- NOTE | 2021-07-10 14:10 | PCM.OPRPT ---
Report of Operation Date of Procedure: 07/10/21 Pre-Operative Diagnosis: Right knee primary osteoarthritis, painful right knee partial replacement Post-Operative Diagnosis: Right knee primary osteoarthritis, painful right knee partial replacement Surgery/Procedure Performed:: Right minimally invasive robotic revision total knee replacement entire femoral and tibial components Description of Surgical Findings:: Stable knee with good patella tracking Surgeon: Malick Gonzales television picture tube rebuilder: Vish Hernandez Type of Anesthesia: General Anesthesiologist: Tej Dickey Special Medications: 2 g Ancef, 1 g TXA at incision, 1 g TXA closure, 10 mg Decadron, joint cocktail (5 mg Duramorph, 30 mL of 0.5% Ropivicaine, 1000 units of epinephrine, 30 mg of Toradol) Specimen's removed: Bony cuts Estimated Blood Loss (mL): 50 Fluids Replaced: 1200 mL crystalloid Description of Procedure: Implants used: 1. [place] size 4 triathlon total stabilized right femoral component with 12 x 50 mm cemented stem 2. [place] size 5 universal tibial baseplate with 5 mm medial augment and 12 x 50 mm cemented stem 3. [place] X3 9 mm PS polyethylene 4. [place] X3 32 mm asymmetric patella Brief history operative indications: 75-year-old m with history of right knee partial medial compartment replacement with progression of patellofemoral and lateral compartment osteoarthritis with radiographic findings with loss of joint space, osteophyte formation and subchondral sclerosis. Failed conservative measures as mentioned in the H&P. Discussion of revision total knee arthroplasty as well as risk and benefits were discussed the patient including but not limited to blood loss, DVTs, PEs, neurovascular damage, general risk of anesthesia including loss of life, and stiffness or instability were discussed with patient. Patient demonstrated understanding and was able to sign informed consent. Procedure: On the date of procedure patient's right lower extremity was marked in the preoperative area. The patient was then taken back to the operating room where the patient was placed on the table in the supine position. All bony prominences were identified a well-padded. Anesthesia assumed control of the C-spine and airway and remained controlled throughout the remainder of the procedure. A tourniquet was placed on the right upper thigh and the leg was prepped in a sterile fashion. The surgeon then scrubbed at this time .Upon reentering the room right lower extremity was draped in a standard orthopedic fashion. A timeout was then called and everyone agreed upon the side, the site, the procedure to be performed, patient's identity and antibiotics given. Esmarch bandage was used to exsanguinate the extremity and the tourniquet was placed up to 250 mmHg with the knee in flexion. A midline skin incision was made and sharp dissection was taken down through skin subcutaneous tissue and fat. The standard medial parapatellar incision was made and the patella was subluxed laterally. An Appropriate deep MCL release was done and the fat pad was resected. Our attention was then directed to the patella. The patella was everted and a flat resection was made. The knee was then flexed up in 2 femoral pins were placed inside the incision and 2 tibial pins were placed outside the incision in the medial tibia bicortically. Once this was completed the 2 checkpoints in the femur and tibia were placed. Knee was then flexed up and the bony landmarks were registered. Once this was completed knee was taken through range of motion and manually stressed allowing us to a plan for an appropriate tibial cut. After registering in stressing the knee and coming up with our tentative surgical plan the implants were then removed. First we focused on the femur removing it with an osteotome. The tibial component was removed with a saw and osteotome. Residual cement was removed. Membrane from behind each implant were sent for culture. After removing the implants with minimal bone loss we proceeded with the surgical revision. The robotic arm was brought into the field sterilely and checkpoint and saw were registered. Based on the patient's deformity the tibial cut was made in 2 degrees of varus. In addition we made a 5 mm deeper medial sided cut for a medial 5 mm augment. At this time the tensioner was then placed in the joint and ligament tension was checked at 90 degrees and full extension. Based on the patient's ligamentous tension appropriate adjustments were made to the operative plan and ligament releases were done. Once we were happy with our operative plan with balanced flexion and extension gaps our attention was directed to the femur. The robot was brought into the field sterilely and registered. Posterior condylar cuts, anterior chamfer cuts and anterior cuts were appropriately made for a size 4 femur. When these were completed the saws were switched out in the distal femoral and posterior chamfer cuts were made. Protecting the soft tissue throughout this time. A size 5 tibial base plate was selected. the knee was flexed to 90 degrees and the soft tissues and posterior osteophytes were removed from the joint. 40 cc of the periarticular injection was injected into the posterior medial corner of the joint. After this was done we then prepared the tibia for the augment and stem. Once this was done we prepared the femur for the total stabilized implant cutting the notch and reaming for the stem. The appropriate trials were then placed on the femur and tibia. A trial polyethylene was trialed to ensure proper balancing and stability of the knee. The appropriate tibial internal rotation was then marked with a bovie. Our attention was then directed to the patella. The lug holes were drilled and the patella trial was placed. Patellar tracking was checked and deemed appropriate. Once we were happy lug holes were drilled for the femur and trial components were removed. the tibia was subluxed and pinned into place and the keel was punched and drilled appropriately. Final components were verified and opened, and cement was mixed in a vacuum. [employer] Simplex cement was used. The wound was copiously irrigated with normal saline. When the cement was ready the components were cemented into place starting with the tibia, femur and finally cementing the patella. The trial poly component was placed and the knee was placed in full extension. All excess cement was removed in the process. Once the cement had cured the tracking, alignment and balance were verified and a size 9 mm PS polyethylene component was placed. Once the final components were placed a 3-minute dilute Betadine lavage was performed followed by an Irrisept lavage was performed and the wound was copiously irrigated with normal saline solution and the periarticular injection was given. The wound was closed in a layer downs fashion using #1 vicryl interrupted sutures for the arthrotomy, 2-0 interrupted Vicryl suture for the subcuticular layer and riya for final skin closure. A sterile compressive dressing was then placed. The patient was then awakened from anesthesia, transferred to the [facility] and transferred to the PACU for recovery. Post op plan DVT ppx: Patient will resume home aspirin and warfarin dose tomorrow for DVT prophylaxis, thigh high compression stockings Follow up: in office in 2 weeks for wound check PT: to start POD #0 at hospital, outpatient PT should be arranged. Patient will be on doxycycline for 2 weeks as we follow cultures My physician photography assistant was a vital part of this case. He was important in appropriate retraction during the case, and protection of soft tissues during bony cuts. His intimate knowledge of the case and my steps aided in safe and expedient completion of the procedure as well as appropriate position of the leg during the case. He was also vital in assisting with closure under my direct supervision. Due to the complexity of this case robotic arm was used to assist in the surgery to improve accuracy and clinical outcomes. Complications No intraoperative complications Admit VTE Documentation VTE Present on Admission: No VTE Mechan Device Prophylaxis: SCD's and Thigh High DALTON Hose VTE Pharm Prophylaxis ordered?: Yes
[2021-07-10] MEDS: Ensure Surgery 237 ML LIQUID PO (17:46)
--- NOTE | 2021-07-10 18:23 | PN.HOSP_ITS ---
Documented by User: ISSA Bowles 07/10/21 18:31 Subjective Subjective Patient seen and examined. Patient lying in bed, no distress noted, eating ice cup. and RN at bedside. Objective Data Objective Data Vital Signs: Vital Signs Temp Pulse Resp BP Pulse Ox 98.6 F 88 18 134/87 H 98 07/10/21 17:00 07/10/21 17:00 07/10/21 17:00 07/10/21 17:00 07/10/21 17:00 Oxygen Flow Rate (L/min) 2 Oxygen Delivery Method Room Air Weight: 158 lb 11.725 oz Body Mass Index (BMI) 27.2 Intake & Output: Intake and Output for Last 24 Hours 07/08/21 07/09/21 07/10/21 23:59 23:59 23:59 Intake Total 4392.33 / 4392.33 Balance 4392.33 / 4392.33 Lab / Micro Data Result Diagrams: 07/01/21 08:03 07/01/21 08:03 Labs: Laboratory Results - last 24 hr 07/10/21 09:35: POC Glucose 85 07/10/21 09:47: PT 13.3, INR 1.1, APTT 33.2 Micro: Microbiology 07/01/21 08:03 Swab (Method) Nasal Screen MRSA/MSSA - Final Radiography Diagnostic Testing: Radiology Impression Knee X-Ray 07/10/21 12:20 IMPRESSION: Status post total knee replacement. There is good alignment. Postoperative soft tissue changes. Electronically Signed: Larry Hewitt MD at 15:33 EST , Physical Exam Const alert, oriented x3 and no apparent distress HEENT head/scalp atraumatic Head and Scalp: normocephalic Eyes conjunctivae normal and no scleral icterus Neck no lymphadenopathy and supple General: trachea midline Resp normal respiratory effort, normal air movement, no use of accessory muscles and clear to auscultation bilaterally Effort and Inspection: able to speak in complete sentences and symmetric chest movement Cardio regular rate, regular rhythm and peripheral pulses 2+ throughout Heart Sounds: murmur Peripheral Pulses: pulses 2+ throughout GI normal to inspection, nondistended, normoactive bowel sounds, soft to palpation and non-tender Extremity normal to inspection, full ROM and no clubbing, cyanosis or edema Peripheral Pulses: Yes pulses 2+ throughout Skin no rashes or lesions noted, no wounds and skin turgor normal Neuro oriented x3, moves all extremities, no focal motor deficits and no sensory deficits noted Sensorium / Orientation: awake and alert Psych affect normal Assessment & Plan Assessment/Plan (1) Essential hypertension: (2) Paroxysmal A-fib: PLAN: 1.Hypertension -Vital signs per protocol, stable -continue home regimen including amlodipine, carvedilol 2.BPH -Continue finasteride 3.Paroxysmal AFib -Continue flecainide - Will restart Warfarin at the direction of ortho 4. TKR -Pain management per ortho -Restart warfarin at ortho discretion -immobilizer in place DVT prophylaxis-SCD's This patient was seen by ISSA Bowles under the supervision of Dr. Orellana. 13 minutes spent in coordination of care of patient. Documented by User: Dr. Boston Orellana MD 07/10/21 19:55 Subjective Subjective Date of consult/service: 07/10/2021 Referring physician: Attending Malick Lorenz Reason for consult: Medical management with multiple complex medical problems including non-STEMI, coronary artery status post stent, valvular heart disease, hypothyroidism, paroxysmal A. fib HPI: The patient is a 75-year-old patient with being admitted to [facility] floor after elective right minimally invasive robotic revision of TKR on 07/10/21. Patient does not have chest pain, shortness of breath, palpitation. He is still mild groggy/lethargy from anesthetic effects. Patient voided urine spontaneously. Had bowel movement yesterday. Past medical history: History of carotid dissection bilateral which was conservatively managed in [facility]. Coronary artery disease status post stent, supraventricular tachycardia, paroxysmal A. fib. Moderate to severe aortic stenosis as per echo in June 2021, mild MR, mild tricuspid insufficiency. Hypertension, dyslipidemia, hypothyroidism and kidney stones Past surgical history: Multiple including hernia repair, kidney stone, laser surgery for BPH, multiple knee surgeries Objective Data Lab / Micro Data Result Diagrams: 07/01/21 08:03 07/01/21 08:03 Physical Exam Narrative General: Mild lethargic, drowsy. Oriented to place and person. HEENT: Atraumatic, PERRLA, EOMI, Normocephalic Oral: No Gingival or Mucosal Lesions/ Ulcerations Neck: Supple, No JVD, Negative Carotid Bruits Lungs: Air entry diminished in bilateral lung bases. No crepitation/rhonchi Cardiovascular: Regular rate, Regular Rhythm, Normal S1, Normal S2, grade 4/6 systolic ejection murmur at right second ICS, pansystolic murmur over cardiac apex and LLSB. Abdomen: Bowel Sounds Present, Soft, Non Tender, Non-Distended : No renal angle tenderness. No suprapubic tenderness. Extremities: No edema, Capillary Refill Less than 3 Seconds Skin: No rashes, No breakdown Musculoskeletal: Right knee TKR under ice pack. No obvious hematoma. Right ankle 5/5. Neurological: Cranial nerves II-XII grossly intact, DTR 2+/4 and Symmetrical, no gross asymmetry in touch or pressure in between right and left lower extremities. Psych/Mental Status: Flat affect Assessment & Plan Assessment/Plan (1) Atherosclerotic heart disease of [place] coronary artery without angina pectoris: QUALIFIERS: [place] vs. transplanted heart: [place] heart Qualified Code(s): I25.10 - Atherosclerotic heart disease of [place] coronary artery without angina pectoris PLAN: This patient was seen in conjunction with RONNIE Morris. I have independently interviewed and examined the patient and reviewed pertinent history, examination findings, laboratory and plan of management. I have reviewed the note and agree with the documented findings with the few additional points. In brief, patient is 75-year-old question gentleman with multiple comorbidities admitted for elective right TKR by Dr. Gonzales, orthopedic surgeon. The patient had right minimally invasive robotic revision of total knee replacement, entire femoral and tibial components. Patient voided urine. No chest pain or shortness of breath. Twelve-lead EKG last 112 322 shows sinus bradycardia 59 bpm, LAD, QTC 415 ms. Last 2D echo in June 2021 shows moderate to severe aortic stenosis, mild MR, mild TR, RVSP 30 mmHg. The patient also had found to be clinically a stress test in June 2021 reported myocardial perfusion within normal limit. Blood pressure and heart rate is in normal limits. No hypoxia or tachypnea. 2. Valvular heart disease, history of SVT and paroxysmal A. fib history of carotid dissection: Moderate to severe aortic stenosis, mild MR, mild TR as mentioned above. Continue patient cardiac medications. Patient on flecainide. Resume warfarin when hemostasis is controlled and appropriate by orthopedic surgeon. 3. Hypertension and dyslipidemia: Blood pressure in normal limit. Continue amlodipine and carvedilol. On rosuvastatin 5 mg daily. 4. History of BPH status post prostate surgery: Monitor for urine retention. Patient voided spontaneously urine Rest of the comorbidities as mentioned above. I have discussed my assessment with RONNIE Morris and orders have been reviewed. Total time of the visit includes total time spent in counseling or coordination of care, (more than 50% of the total time, spent in obtaining medical information from nurses and other ancillary care providers,explaining to the patient about labs, imaging, diagnosis and management), discussion with building performance consultant, review of labs and imaging is 45 minutes; I spent 30 minutes, more than half time and PA spent 15 minutes Charges/Coding Visit Charges Office Visits / Consults: 21501 OP Consult L4
[2021-07-10] MEDS: Cefazolin 1 GM/50 ML BAG IV (20:38)
[2021-07-10] MEDS: Atorvastatin Calcium 20 MG Tablet PO (20:41)
[2021-07-10] MEDS: Flecainide 100 MG Tablet 50 MG PO (20:41)
[2021-07-10] MEDS: Carvedilol 6.25 MG Tablet PO (20:41)
[2021-07-10] MEDS: Senna/Docusate Sodium 1 Tablet 2 TABLET PO (20:41)
[2021-07-10] MEDS: Doxycycline 100 MG CAPSULE PO (20:41)
[2021-07-11 01:00] VITALS: BMI 27.2
[2021-07-11 02:38] VITALS: BP 132/89; PULSE 77; RESP 18; TEMP 36.4; O2SAT 94
[2021-07-11] MEDS: Cefazolin 1 GM/50 ML BAG IV (04:35)
[2021-07-11 05:00] VITALS: BMI 27.2
[2021-07-11] MEDS: oxyCODONE 5 MG Tablet PO ×2 (06:00→13:00)
[2021-07-11] MEDS: Acetaminophen 500 MG Tablet 1000 MG PO ×3 (06:00→21:18)
[2021-07-11] MEDS: Levothyroxine 75 MCG Tablet PO (06:00)
[2021-07-11 06:38] LABS: Mean Corp Hgb Conc 32.6 g/dL (32-36); Mean Corpuscular Volume 88.8 fL (80-94); Mean Platelet Vol. 9.1 fl (6.2-12.0); Platelet Count 340 K/mm3 (150-450); RBC Distribution Width CV 14.6 % (11.6-14.6); RBC Distribution Width SD 46.5 fl (35.1-43.9); Red Blood Count 5.18 M/mm3 (4.6-6.2)
[2021-07-11 07:04] LABS: Anion Gap 5 (5-15); BUN 16 mg/dL (7-18); BUN/Creat Ratio 16.4 RATIO (10-20); Calcium,Total 8.7 mg/dL (8.5-10.1); Chloride 103 mmol/L (98-107); Creatinine, Serum 0.97 mg/dL (0.70-1.30); EST Glomerular Filtration Rate 79 mL/min (>60); Est Glom Filt Rate - Afr Amer 96 mL/min (>60); Glucose 135 mg/dL (74-106); Potassium 4.5 mmol/L (3.5-5.1); Sodium Level 134 mmol/L (136-145)
[2021-07-11] MEDS: Aspirin E.C. 81 MG Tablet PO ×2 (08:18→10:52)
[2021-07-11 08:30] VITALS: BP 130/83; PULSE 59; RESP 18; TEMP 36.3; O2SAT 98
[2021-07-11] MEDS: Ensure Surgery 237 ML LIQUID PO ×3 (08:48→17:14)
[2021-07-11 09:00] VITALS: BMI 27.2
[2021-07-11 09:39] VITALS: RESP 18
--- NOTE | 2021-07-11 10:23 | PN.ORTHO_ITS ---
Subjective Subjective The patient was sitting in bedside chair upon examination. Patient denies any chest pain, shortness of breath, dizziness, lightheadedness, nausea or vomiting, or calf pain. Pain is controlled on medications. No adverse overnight events. his right knee did buckle o not comfortable on his right kneen him with nursing. He did do therapy and was slightly better. He is still Patient states this morning. Objective Data Objective Data Vital Signs: Vital Signs Temp Pulse Resp BP Pulse Ox 97.3 F L 59 L 18 130/83 H 98 07/11/21 08:30 07/11/21 08:30 07/11/21 09:39 07/11/21 08:30 07/11/21 08:30 Oxygen Flow Rate (L/min) 2 Oxygen Delivery Method Room Air Weight: 72 kg Body Mass Index (BMI) 27.2 Intake & Output: Intake and Output for Last 24 Hours 07/09/21 07/10/21 07/11/21 23:59 23:59 23:59 Intake Total 5392.33 / 5812.33 1270 / 1270 Output Total 500 / 1400 1974 Balance 4892.33 / 4412.33 -705 / -705 Lab / Micro Data Result Diagrams: 07/11/21 06:25 07/11/21 06:25 Labs: Laboratory Results - last 24 hr 07/11/21 06:25: WBC 18.0 H, RBC 5.18, Hgb 15.0, Hct 46.0, MCV 88.8, MCH 29.0, MCHC 32.6, RDW Std Deviation 46.5 H, RDW Coeff of Eddie 14.6, Plt Count 340, MPV 9.1 07/11/21 06:25: Sodium 134 L, Potassium 4.5, Chloride 103, Carbon Dioxide 26.0, Anion Gap 5, BUN 16, Creatinine 0.97, Estim Creat Clear Calc 53.40, Est GFR (MDRD) Af Amer 96, Est GFR (MDRD) Non-Af 79, BUN/Creatinine Ratio 16.4, Glucose 135 H, Calcium 8.7 Micro: Microbiology 07/01/21 08:03 Swab (Method) Nasal Screen MRSA/MSSA - Final Radiography Diagnostic Testing: Radiology Impression Knee X-Ray 07/10/21 12:20 IMPRESSION: Status post total knee replacement. There is good alignment. Postoperative soft tissue changes. Electronically Signed: Larry Hewitt MD at 15:33 EST , Physical Exam Narrative Vital signs stable and afebrile. Patient is able to plantarflex and dorsiflex actively. Sensation is intact to light touch to saphenous, sural, superficial and deep peroneal, and tibial distribution. Dressing is clean dry and intact. Patient currently wearing DALTON hose and SCDs Negative Homans bilaterally, negative signs and symptoms of DVT. Const alert, oriented x3 and no apparent distress Assessment & Plan Assessment/Plan (1) Status post revision of total replacement of right knee: PLAN: 1. S/P right revision partial knee replacement to a total knee a rthroplasty POD #1 2. Continue Pain Medications: Tylenol and oxycodone 3. DVT Prophylaxis: Patient is resuming his warfarin and his 81 mg aspirin. Patient has history of atrial fibrillation. Patient will follow with provider managing his Coumadin to make sure his INR is therapeutic over the next 1 to 2 weeks. 4. PT/OT: Continue with physical therapy, weightbearing as tolerated with walker 5. H & H: 15.0/46.0, asymptomatic. Postoperative anemia secondary to acute blood loss from surgery without any intra operative complications. 6. Reactive leukocytosis: 18.0, afebrile. Patient did receive Decadron intraoperatively. 7. Continue antibiotics while following cultures: Cultures are currently pending. Will be placed on doxycycline for 2 weeks postoperatively 8. Continue postoperative medical management per medicine 9. Encouraged Incentive Spirometry 10. Disposition: Patient was having some difficulties this morning while weightbearing and did have buckling of the knee. I would like him to continue with physical therapy today and tomorrow. I would like him to stay an additio nal day so that we can make sure he goes home in a safe manner. Physical therapy appointment will be adjusted as he was scheduled to begin outpatient physical therapy tomorrow. We will recheck lab work tomorrow. I have reviewed the [place] Automated Rx Reporting System ([place]ARRS) report for this patient for refill pattern and other prescriber involvement as part of the appropriate surveillance for the provision of acute and chronic controlled medications. The report was requested and reviewed on the date of this entry and was considered in the prescribing process.
[2021-07-11] MEDS: Famotidine 20 MG Tablet PO (10:51)
[2021-07-11] MEDS: Carvedilol 6.25 MG Tablet PO ×2 (10:52→21:18)
[2021-07-11] MEDS: amLODIPine 5 MG Tablet PO (10:52)
[2021-07-11] MEDS: Finasteride 5 MG Tablet PO (10:52)
[2021-07-11] MEDS: Doxycycline 100 MG CAPSULE PO ×2 (10:52→21:18)
[2021-07-11] MEDS: Senna/Docusate Sodium 1 Tablet 2 TABLET PO ×2 (10:52→21:18)
[2021-07-11] MEDS: Flecainide 100 MG Tablet 50 MG PO ×2 (10:52→21:17)
[2021-07-11] MEDS: Cholecalciferol (VIT D3) 25 MCG TABLET (1,000 UNITS) PO (10:53)
--- NOTE | 2021-07-11 11:00 | CASEMGMT ---
Addendum entered by Ramu Brandt 07/11/21 16:36: 1245: To room to talk w/pt. Pt states he still has not decided if he wants to do OP therapy or HHC. He states he understands ASHLEY Wahl, feels he would have better recovery/therapy w/OP therapy but he states again he would not be able to tolerate wearing a mask while doing therapy @ [facility]. He states, if he does decide to do OP therapy, that his would be able to take him to the appts. Also states, if his was not available, he would be able to contact someone else to take him. Pt was provided with list of C providers including quality and resource use data and consistent with the patient's preferred geographic region, medical needs, and insurance network. The pt's states he will look over the list and continue to think about what he would like to do. [place] form also explained to pt at this time re: Observation status for treatment of Rt total knee w/NAHID. Explained hospitalization will be paid per his insurance policy for Outpatient billing and condition will continue to be evaluated for Inpt necessity. Also let pt know that [facility] sends paper in the billing packet with their phone number if questions arise. Discussed Pharmacy section of [place] form and self administered medication guideline. Pt verbalizes understanding and does not have further questions. Form signed, copy made and placed in chart, and original given to pt. Erin HERNÁNDEZ RN CM Original Note: RN CM COTTON DISPATCHER CM to room to meet with patient for initial transition planning/care coordination assessment. RN CM introduced self and role at [facility]. Pt voices understanding and consents to assessment at this time. Pt sitting up in recliner chair in no distress at this time. Pt is A/O at this time and answers all questions appropriately. Care providers, pharmacy, and demographics verified/updated at this time. PCP: Dr Tapan Cornelius Specialists: Dr Gonzales-ortho, Dr Bravo-cardio, Dr Briones-urology. 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 He plans to call and schedule f/u appt w/her. Preferred Pharmacy: [facility] Retail Insurance: YULISSA, [employer] Prescription Benefit: Yes Living Will/HPOA: Has both LW and HPOA, who is his , Trina. Copies of both are on e-chart @ [facility]. LNOK: , Trina. 5 children. Living Arrangements: Lives w/ in 2-story home w/1 step to enter. FFSU. 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 does most home mgmt tasks and able to assist pt as needed. also helps to manage pt's medications and appts. Transportation: Pt, DME: States has the following DME: shower chair, walker. Pt has grab bars but they have not been installed yet. Pt states no need for further DME at this time. HHC/SNF: No history of either. Pt wishes to return home and states has no concerns with going home at time of discharge. Discussed OP therapy. Pt states he can't stand wearing a mask for an hour for OP therapy and would like to do HHC. ASHLEY Srinivasan, made aware of same. Per Vish, he states feels better has better recovery/outcome w/OP therapy and that he will discuss this with pt further. Pt voices no further concerns/needs at this time. Advised pt to ask for CM if any further questions/concerns/needs arise. Voices understanding. PLAN: TBD. Home w/HHC vs Home w/OP therapy. CM to follow for further discharge planning/needs after ASHLEY Wahl, talks w/pt. Erin HERNÁNDEZ RN CM
[2021-07-11 13:00] VITALS: BMI 27.2
[2021-07-11 15:53] VITALS: BP 125/74; PULSE 68; RESP 18; TEMP 36.8; O2SAT 98
--- NOTE | 2021-07-11 16:41 | PCM.PN.HOSP ---
Subjective Subjective Patient reports his knee gave out on him this morning when he got up with therapy. He did have a block and explained to him that he perhaps may do better later this afternoon with therapy. He denies any specific complaints other than his leg giving out and states his pain is fairly well controlled. Objective Data Objective Data Vital Signs: Vital Signs Temp Pulse Resp BP Pulse Ox 98.2 F 68 18 125/74 H 98 07/11/21 15:53 07/11/21 15:53 07/11/21 15:53 07/11/21 15:53 07/11/21 15:53 Oxygen Flow Rate (L/min) 2 Oxygen Delivery Method Room Air Weight: 72 kg Body Mass Index (BMI) 27.2 Intake & Output: Intake and Output for Last 24 Hours 07/09/21 07/10/21 07/11/21 23:59 23:59 23:59 Intake Total 5392.33 / 5812.33 2470 / 2470 Output Total 500 / 1400 3375 / 3375 Balance 4892.33 / 4412.33 -905 / -905 Lab / Micro Data Result Diagrams: 07/11/21 06:25 07/11/21 06:25 Labs: Laboratory Results - last 24 hr 07/11/21 06:25: WBC 18.0 H, RBC 5.18, Hgb 15.0, Hct 46.0, MCV 88.8, MCH 29.0, MCHC 32.6, RDW Std Deviation 46.5 H, RDW Coeff of Eddie 14.6, Plt Count 340, MPV 9.1 07/11/21 06:25: Sodium 134 L, Potassium 4.5, Chloride 103, Carbon Dioxide 26.0, Anion Gap 5, BUN 16, Creatinine 0.97, Estim Creat Clear Calc 53.40, Est GFR (MDRD) Af Amer 96, Est GFR (MDRD) Non-Af 79, BUN/Creatinine Ratio 16.4, Glucose 135 H, Calcium 8.7 Micro: Microbiology 07/10/21 15:09 Tissue - Knee Gram Stain - Final 07/10/21 15:09 Tissue - Knee Wound Culture - Preliminary No growth-Final to follow 07/10/21 15:09 Tissue - Knee Gram Stain - Final 07/10/21 15:09 Tissue - Knee Wound Culture - Preliminary No growth-Final to follow 07/10/21 15:09 Tissue - Knee Gram Stain - Final 07/10/21 15:09 Tissue - Knee Wound Culture - Preliminary No growth-Final to follow 07/01/21 08:03 Swab (Method) Nasal Screen MRSA/MSSA - Final Physical Exam Const alert, oriented x3, no apparent distress, healthy appearing and well nourished Constitutional Narrative: Slightly overweight older white male sitting up in a chair at the bedside, appears comfortable and nontoxic Exam Limitations: no limitations Nutritional Appearance: overweight HEENT head/scalp atraumatic and moist oral mucous membranes Head and Scalp: normocephalic Resp normal respiratory effort, no retractions, no use of accessory muscles and clear to auscultation bilaterally Auscultation: Negative for crackles, rales, rhonchi or wheezes Cardio regular rate, regular rhythm, S1 normal heart sound, S2 normal heart sound, no murmurs, no rub, no gallops, no clicks and no JVD GI normal to inspection, nondistended, normoactive bowel sounds, soft to palpation, non-tender and non-distended; Negative for hepatosplenomegaly Extremity no clubbing, cyanosis or edema Extremity Narrative: Bilateral DALTON hose in place, polar ice on knee-R Peripheral Pulses: Yes pulses 2+ throughout Neuro oriented x3, moves all extremities and no focal motor deficits Sensorium / Orientation: awake and alert Speech: speech normal Assessment & Plan Assessment/Plan (1) Leukocytosis: (2) Hyponatremia: (3) Status post revision of total replacement of right knee: PLAN: Severe right knee osteoarthritis status post TKA-revision -Postop day 1 -Slight weakness when up with therapy today -Continue PT/OT -Pain management per primary service -Recommend bowel regimen -Weightbearing as tolerated -Resuming warfarin and continuing his home aspirin dose -We will need follow-up INR -Plan is for follow-up doxycycline for 2 weeks after discharge -Preliminary cultures from the OR are negative thus far Leukocytosis -Suspect reactive -Repeat CBC in a.m. Mild hyponatremia -Sodium is 135 -May be related to volume resuscitation in the OR -Repeat BMP in a.m. Paroxysmal atrial fibrillation/HTN/HPL -Continue carvedilol 6.25 mg daily -Continue flecainide -Restart Coumadin -Continue aspirin -Continue Crestor -Continue amlodipine Moderate to severe aortic stenosis -Monitor clinically -No signs of acute decompensation at this time Hypothyroidism -Continue levothyroxine BPH -Continue finasteride -Has had TURP previously -Monitor urine output DVT prophylaxis -Management per primary service -Reinitiating Coumadin Charges/Coding Visit Charges Inpatient E&M: 30693 Subs Hosp L2
[2021-07-11 16:51] VITALS: BMI 27.2
[2021-07-11 21:00] VITALS: BMI 27.2
[2021-07-11] MEDS: Atorvastatin Calcium 20 MG Tablet PO (21:17)
[2021-07-11 21:30] VITALS: BP 137/81; PULSE 60; RESP 16; TEMP 36.5; O2SAT 96
[2021-07-12 04:00] VITALS: BP 139/88; PULSE 60; RESP 16; TEMP 37; O2SAT 97
[2021-07-12] MEDS: oxyCODONE 5 MG Tablet PO ×3 (04:13→13:59)
[2021-07-12] MEDS: Levothyroxine 75 MCG Tablet PO (06:17)
[2021-07-12] MEDS: Acetaminophen 500 MG Tablet 1000 MG PO ×2 (06:18→13:59)
[2021-07-12 06:24] LABS: Hemoglobin 14.2 g/dL (13.0-16.5); Mean Corpuscular Hgb 29.6 pg (27.0-32.0); Mean Corpuscular Volume 89.6 fL (80-94); Mean Platelet Vol. 9.2 fl (6.2-12.0); Platelet Count 297 K/mm3 (150-450); RBC Distribution Width CV 14.8 % (11.6-14.6); RBC Distribution Width SD 47.5 fl (35.1-43.9); White Blood Count 10.4 K/mm3 (4.4-11.0)
[2021-07-12 06:35] LABS: International Normalized Ratio 1.1; Prothrombin Time (Protime)PT. 13.2 SECONDS (11.7-14.9)
[2021-07-12 06:53] LABS: Anion Gap 3 (5-15); BUN 23 mg/dL (7-18); BUN/Creat Ratio 23.3 RATIO (10-20); Calcium,Total 8.5 mg/dL (8.5-10.1); Chloride 107 mmol/L (98-107); Creatinine, Serum 0.99 mg/dL (0.70-1.30); EST Glomerular Filtration Rate 78 mL/min (>60); Est Glom Filt Rate - Afr Amer 94 mL/min (>60); Estimated Creatinine Clearance 52.32 ml/min; Glucose 86 mg/dL (74-106); Potassium 4.4 mmol/L (3.5-5.1); Sodium Level 140 mmol/L (136-145)
--- NOTE | 2021-07-12 07:07 | PCM.PN.ORT ---
Subjective Subjective The patient was sitting in bed upon examination. Patient denies any chest pain, shortness of breath, dizziness, lightheadedness, nausea or vomiting, or calf pain. Pain is controlled on medications. No adverse overnight events. Patient states he does feel better today. He tolerated therapy much better in the afternoon. He also reports he has been up walking in the room by himself. There has been some drainage from the middle one third of the dressing. Objective Data Objective Data Vital Signs: Vital Signs Temp Pulse Resp BP Pulse Ox 98.6 F 60 16 139/88 H 97 07/12/21 04:00 07/12/21 04:00 07/12/21 04:00 07/12/21 04:00 07/12/21 04:00 Oxygen Flow Rate (L/min) 2 Oxygen Delivery Method Room Air Weight: 72 kg Body Mass Index (BMI) 27.2 Intake & Output: Intake and Output for Last 24 Hours 07/10/21 07/11/21 07/12/21 23:59 23:59 23:59 Intake Total 5392.33 / 5812.33 2470 / 2470 Output Total 500 / 1400 3375 / 3825 1250 / 1250 Balance 4892.33 / 4412.33 -905 / -1355 -1250 / -1250 Lab / Micro Data Result Diagrams: 07/12/21 05:55 07/12/21 05:55 Labs: Laboratory Results - last 24 hr 07/12/21 05:55: WBC 10.4, RBC 4.80, Hgb 14.2, Hct 43.0, MCV 89.6, MCH 29.6, MCHC 33.0, RDW Std Deviation 47.5 H, RDW Coeff of Eddie 14.8 H, Plt Count 297, MPV 9.2 07/12/21 05:55: PT 13.2, INR 1.1 07/12/21 05:55: Sodium 140, Potassium 4.4, Chloride 107, Carbon Dioxide 30.0, Anion Gap 3 L, BUN 23 H, Creatinine 0.99, Estim Creat Clear Calc 52.32, Est GFR (MDRD) Af Amer 94, Est GFR (MDRD) Non-Af 78, BUN/Creatinine Ratio 23.3 H, Glucose 86, Calcium 8.5 Micro: Microbiology 07/10/21 15:09 Tissue - Knee Gram Stain - Final 07/10/21 15:09 Tissue - Knee Wound Culture - Preliminary No growth-Final to follow 07/10/21 15:09 Tissue - Knee Gram Stain - Final 07/10/21 15:09 Tissue - Knee Wound Culture - Preliminary No growth-Final to follow 07/10/21 15:09 Tissue - Knee Gram Stain - Final 07/10/21 15:09 Tissue - Knee Wound Culture - Preliminary No growth-Final to follow 07/01/21 08:03 Swab (Method) Nasal Screen MRSA/MSSA - Final Physical Exam Narrative Vital signs stable and afebrile. Patient is able to plantarflex and dorsiflex actively. Sensation is intact to light touch to saphenous, sural, superficial and deep peroneal, and tibial distribution. Patient did have some drainage from the middle one third of the Mepilex dressing. Remaining dressings are clean dry and intact. DALTON hose and SCDs are in place Negative Homans bilaterally, negative signs and symptoms of DVT. Const alert, oriented x3 and no apparent distress Assessment & Plan Assessment/Plan (1) Status post revision of total replacement of right knee: PLAN: 1. S/P right revision partial knee replacement to a total knee arthroplasty POD #2 2. Continue Pain Medications: Tylenol and oxycodone 3. DVT Prophylaxis: Patient is resuming his warfarin and his 81 mg aspirin. Patient has history of atrial fibrillation. Patient will follow with provider managing his Coumadin to make sure his INR is therapeutic over the next 1 to 2 weeks. 4. PT/OT: Continue with physical therapy, weightbearing as tolerated with walker 5. H & H: 14.2/43.0, asymptomatic. Postoperative anemia secondary to acute blood loss from surgery without any intra operative complications. 6. Reactive leukocytosis: Resolved, currently 10.4, afebrile. Patient did receive Decadron intraoperatively. 7. Continue antibiotics while following cultures: Cultures are currently with no growth or no organisms seen. Will be placed on doxycycline for 2 weeks postoperatively while continuing to follow cultures 8. Continue postoperative medical management per medicine 9. Encouraged Incentive Spirometry 10. Disposition: Patient overall is doing much better today. He tolerated therapy much better in the afternoon. He has been up walking on his own. At this time I do feel patient is orthopedically stable and plan will be for discharge home today. Patient states he is going to do outpatient physical therapy. We will have case management move his appointment from today to early next week. He will continue with exercises through the weekend. Prior to discharge today we will have a new Mepilex dressing placed. He will continue with ice through the weekend. Patient would like the prescription to be E scribed to [facility]. He will follow-up per postop instructions. He will contact her office with any concerns or questions once discharged from the hospital I have reviewed the [place] Automated Rx Reporting System (OARRS) report for this patient for refill pattern and other prescriber involvement as part of the appropriate surveillance for the provision of acute and chronic controlled medications. The report was requested and reviewed on the date of this entry and was considered in the prescribing process.
--- NOTE | 2021-07-12 07:13 | DCINST_ITS ---
Discharge Instructions Diet Discharge Diet: No restrictions Activity Discharge Activity: May Not Drive (while taking narcotic pain medications.) May shower in (days): 1 (Please turn dressing away from water. Okay to get wet as long as dressing is intact to skin.) Ice area for (Minutes): 20 (Every 1-2 hours while awake[address] place barrier between the skin and ice pack.) Weight Bearing Status: Weight bearing as tolerated Keep extremity elevated above heart level: Operative Extremity Dressing / Incision Call your doctor if your incision/area has: Continuous Slow Oozing, Sudden Increased Bleeding, Increased Pain/ Swelling, Increased Redness and Foul Smelling Discharge Call your doctor if you observe: Fever of 101 or Higher, Coldness, Increased Pain, Numbness or Tingling, Change in Color, Shortness of breath, Chest pain, Calf discomfort and Uncontrolled pain Remove Dressing in: 3 days (Okay to remove dressing on July 15, 2021) Additional Dressing/Incision Instructions:: Follow [facility] Post-op Instructions. Once postoperative dressing has been removed only use gentle soap and water over the incision. Do not use any ointments, Neosporin, salves, alcohol pads over the incision for 6 weeks postoperatively. Do not submerge underwater for 6 weeks postoperatively. Continue with DALTON hose/elastic stockings for 2 weeks postoperatively. May remove at nighttime but needs to be placed back on the leg during the day. Do NOT use alcohol with narcotic pain medication. Do NOT make important decisions while taking narcotic medication. If you have problems with taking your medication (rash, itching, nausea, etc.) call the office at once. Follow Up Care Test Results: Test results from this visit will be discussed in further detail at your follow-up appointment, if applicable. Discharge Plan Admission Admit Date/Time: 07/10/21 12:19 Attending Provider: Dulce Espana Primary Care Provider: Tapan Cornelius Consulting Providers: [place] Orell[place] Discharge Orders/Prescriptions Prescriptions: New acetaminophen 500 mg Tablet 1,000 mg PO TID 14 Days Qty: 84 RF: 0 doxycycline monohydrate 100 mg Capsule 100 mg PO BID Qty: 26 RF: 0 oxycodone 5 mg Tablet 5 - 10 mg PO Q4H PRN PRN (Reason: Pain Score 4-10) 5 Days Qty: 52 RF: 0 Continued lysine 500 mg tablet 500 mg PO DAILY RF: 0 nitroglycerin 0.4 mg tablet, sublingual 0.4 mg SUBLINGUAL Q5-15M PRN (Reason: chest pain) Qty: 25 RF: 3 warfarin 7.5 mg tablet 7.5 mg PO DAILY RF: 0 carvedilol 6.25 mg tablet 6.25 mg PO BID RF: 0 cholecalciferol (vitamin D3) 25 mcg (1,000 unit) tablet 25 mcg PO DAILY RF: 0 cyanocobalamin (vitamin B-12) [Vitamin B-12] 1,000 mcg tablet 1,000 mcg PO DAILY RF: 0 therapeutic multivitamin 1 EACH tablet 1 ea PO DAILY RF: 0 levothyroxine 75 MCG tablet 75 mcg PO DAILY RF: 0 flecainide 100 MG tablet 50 mg PO BID RF: 0 aspirin 81 MG tablet,delayed release (DR/EC) 81 mg PO DAILY RF: 0 finasteride 5 MG tablet 5 mg PO DAILY Qty: 90 RF: 3 amlodipine 5 mg tablet 5 mg PO DAILY Qty: 90 RF: 3 rosuvastatin 5 mg tablet 10 mg PO DAILY RF: 0 Other Ambulatory Orders: Albumin, Serum (Routine) Timeframe: 20210701 Facility: [facility] - Location: Laboratory Ordered By: Dr. Malick Gonzales Basic Metabolic Profile (BMP) (Routine) Timeframe: 20210701 Facility: [facility] - Location: Laboratory Ordered By: Dr. Malick Gonzales CBC W/Diff, Automated (Routine) Timeframe: 20210701 Facility: [facility] - Location: Laboratory Ordered By: Dr. Malick Gonzales MRSA/SAID SCREEN (PRE SURG) (Routine) Timeframe: 20210701 Facility: [facility] - Location: Laboratory Ordered By: Dr. Mailck Gonzales Referrals / Follow Up: Tapan Cornelius MD [Primary Care Provider] - Disposition Disposition (needs filled in before D/C Order can be placed): Home, Self Care
[2021-07-12 08:35] VITALS: BP 164/98; PULSE 77; RESP 18; TEMP 36.9; O2SAT 95
[2021-07-12] MEDS: Flecainide 100 MG Tablet 50 MG PO (08:50)
[2021-07-12] MEDS: Cholecalciferol (VIT D3) 25 MCG TABLET (1,000 UNITS) PO (08:50)
[2021-07-12] MEDS: amLODIPine 5 MG Tablet PO (08:51)
[2021-07-12] MEDS: Aspirin E.C. 81 MG Tablet PO (08:51)
[2021-07-12] MEDS: Senna/Docusate Sodium 1 Tablet 2 TABLET PO (08:52)
[2021-07-12] MEDS: Famotidine 20 MG Tablet PO (08:52)
[2021-07-12] MEDS: Finasteride 5 MG Tablet PO (08:52)
[2021-07-12] MEDS: Carvedilol 6.25 MG Tablet PO (08:52)
[2021-07-12] MEDS: Doxycycline 100 MG CAPSULE PO (08:52)
--- NOTE | 2021-07-12 10:35 | CASEMGMT ---
Late entry for 07/11/2021 at 5pm. JESSICA JAY in to pt room per request of to review [place] form. Reviewed the document and purpose, she verbalized understanding. Pt states that pt does not want to wear a mask at outpt therapy. She states that if the doctor writes a rx stating he does not have to wear a mask, it will be accepted. She states that cannot come from the ortho doctory. They will discuss HHC vs outpt and JESSICA JAY to check back in the morning.
--- NOTE | 2021-07-12 10:37 | CASEMGMT ---
Discussed rx with hospitalist in rounds, no order received for pt to not wear mask at therapy. JESSICA JAY in to pt room, pt finishing with therapy. Pt states he does not have a choice about going to outpt. He is aware this RN MISTY called [facility] and their policy is to wear a mask as well. Pt upset and began to state his beliefs with mask wearing. He declines HHC, he will keep his appt at [facility]. Pt denies further needs at this time.
[2021-07-12 13:55] VITALS: BP 132/78; PULSE 78; RESP 18; TEMP 36.9; O2SAT 94
== END 2021-07-12 14:50 | disposition home or self-care (01) ==
LOC: SDC 13:23 → MS3 13:23
PROVIDERS: Anesthesiology; Physician Assistant Surgical; Admitting Provider Specialist; PCP Family Medicine; Referring Provider Specialist; Visit Provider Internal Medicine
PROC: 0SRC0JZ Replacement of Right Knee Joint with Synthetic Substitute, Open Approach (ICD-10-PCS; CPT 27447; principal; 2021-07-10 11:00)
DX: M17.11 Unilateral primary osteoarthritis, right knee (principal); I48.0 Paroxysmal atrial fibrillation; I47.1 Supraventricular tachycardia; I10 Essential (primary) hypertension; E78.5 Hyperlipidemia, unspecified; I25.10 Atherosclerotic heart disease of native coronary artery without angina pectoris; E03.9 Hypothyroidism, unspecified; E87.1 Hypo-osmolality and hyponatremia; E78.00 Pure hypercholesterolemia, unspecified; L40.9 Psoriasis, unspecified; N40.0 Benign prostatic hyperplasia without lower urinary tract symptoms; I35.0 Nonrheumatic aortic (valve) stenosis; Z79.01 Long term (current) use of anticoagulants; Z79.899 Other long term (current) drug therapy; Z79.890 Hormone replacement therapy; Z79.82 Long term (current) use of aspirin; Z96.651 Presence of right artificial knee joint; Z95.5 Presence of coronary angioplasty implant and graft
CPT/HCPCS: 27447; S2900; 01402; 36415; 71046; 73560; 73700; 78452; 80048; 80061; 80076; 82040; 82962; 83735; 84443; 85025; 85027; 85610; 85730; 87015; 87070; 87075; 87081; 87102; 87116; 87176; 87205; 87206; 93017; 93306; 96365; 96366; 97110; 97162; 97166; 97530; 97535; 99218; 99251; A9500; C1776; J7120; Q9957; A4216; C8929; G0378; G0463; J2405; J2785

== ENCOUNTER 2021-07-31 11:22 | Outpatient (CLI) | payer MEDICARE, OTHER, SELFPAY ==
[2017-05-20 14:31] VITALS: BMI 25.0
[2021-07-31 12:53] LABS: Thyroid Stim Hormone (TSH) 8.82 uIU/mL (0.358-3.74)
== END 2021-07-31 23:59 | disposition home or self-care (01) ==
LOC: LAB 11:24
PROVIDERS: PCP Family Medicine; Referring Provider Physician Assistant Medical; Visit Provider Physician Assistant Medical
DX: E03.9 Hypothyroidism, unspecified (principal)
CPT/HCPCS: 36415; 84443

== ENCOUNTER 2021-09-14 16:25 | Inpatient (IN) | payer MEDICARE, OTHER, SELFPAY ==
[2017-05-20 14:31] VITALS: BMI 25.0
[2021-09-14] VITALS (20 sets, daily range): BP systolic 107–169; BP diastolic 82–133; PULSE 74–89; RESP 12–32; TEMP 36.6–37.2; O2SAT 92–100; BMI 27.4; BMI 27.6
--- NOTE | 2021-09-14 16:35 | EKG12_ITS ---
Test Reason : CP Blood Pressure : / mmHG Vent. Rate : 068 BPM Atrial Rate : 068 BPM P-R Int : 168 ms QRS Dur : 102 ms QT Int : 398 ms P-R-T Axes : 050 -50 021 degrees QTc Int : 423 ms Sinus rhythm with marked sinus arrhythmia Left anterior fascicular block Voltage criteria for left ventricular hypertrophy ST-Segment abnormality: Consider Anterior Infarct MT-Possibly Acute Abnormal ECG Confirmed by MARGIE SANCHEZ, FREEMAN ([id number]), medical transcription editor OMAR BAEZ ([id number]) on 09/17/2021 9:21:11 AM Referred By: Toro Guillermo Confirmed By:FREEMAN HANSON MD
--- NOTE | 2021-09-14 16:37 | EDS_ITS ---
HPI History of Present Illness Chief Complaint: Chest Pain Informant: patient and family Onset/Context/Timing Onset: Today Activity at onset: sudden and exertion (Clearing brush) Timing: Continuous Quality: Positive for Tightness Location: Substernal Current Severity: Severe Maximum Severity: Severe Worsened By: Nothing Relieved By: Nothing Associated Symptoms: Positive for - (weak) Narrative Narrative: Limited history available from this patient who was not feeling well, started having chest pain while exerting himself working in his field. Called family and immediately brought to the hospital. History of having had a stent and is on warfarin for paroxysmal atrial fibrillation. [facility] Medical History Arthritis Atelectasis Atherosclerotic heart disease of [place] coronary artery without angina pectoris Cancer Cardiology follow-up encounter Carotid dissection, 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) Chest pain Chest pain Chest tightness Easy bruising Essential hypertension Excessive bleeding Hearing loss of left ear Hematuria High cholesterol History of BPH History of echocardiogram History of kidney stones History of pericarditis (~04/2017) History of stress test Hyperlipidemia Hypothyroidism Nonrheumatic aortic (valve) stenosis Nonrheumatic mitral valve regurgitation SERGO (obstructive sleep apnea) Paroxysmal A-fib Right inguinal hernia Stented coronary artery (11/23/18) Thymoma, malignant Wears glasses Wears partial dentures Home Medications levothyroxine 75 mcg PO DAILY 01/07/17 [History Last Taken 07/10/21] nitroglycerin 0.4 mg sublingual tablet 0.4 mg SUBLINGUAL Q5-15M PRN #25 tab 12/21/18 [Rx Last Taken Unknown] lysine 500 mg tablet 500 mg PO DAILY 06/09/19 [History Last Taken 11/19/19 08:00] aspirin 81 mg PO DAILY 11/19/19 [History Last Taken 07/03/21] finasteride 5 mg PO DAILY #90 tab 11/21/19 [Rx Last Taken Unknown] warfarin 7.5 mg tablet 7.5 mg PO DAILY tab 01/19/20 [History Last Taken 07/05/21] carvedilol 6.25 mg tablet 6.25 mg PO BID tab 06/27/21 [History Last Taken 07/10/21] cholecalciferol (vitamin D3) 25 mcg (1,000 unit) tablet 25 mcg PO DAILY 06/27/21 [History Last Taken Unknown] cyanocobalamin (vitamin B-12) 1,000 mcg tablet 1,000 mcg PO DAILY 06/27/21 [History Last Taken Unknown] acetaminophen 1,000 mg PO TID 14 Days #84 tab 07/12/21 [Rx Last Taken Unknown] amlodipine 5 mg tablet 5 mg PO DAILY tab 07/31/21 [History Last Taken Unknown] multivitamin 1 tab PO DAILY 07/31/21 [History Last Taken Unknown] rosuvastatin 5 mg tablet 5 mg PO DAILY tab 07/31/21 [History Last Taken Unknown] flecainide 50 mg tablet 50 mg PO BID #180 tab 08/05/21 [Rx Last Taken Unknown] warfarin 5 mg PO QODAY 09/14/21 [History Last Taken Unknown] Allergy/AdvReac Type Severity Reaction Status Date / Time cefuroxime Allergy Intermediate Rash Verified 09/14/21 16:34 rosuvastatin [From Crestor] AdvReac Severe severe Verified 09/14/21 16:34 myalgias lisinopril AdvReac Intermediate didn't Verified 09/14/21 16:34 control bp well, labile cephalexin AdvReac Pain in Verified 09/14/21 16:34 joints levofloxacin [From Levaquin] AdvReac achiness Verified 09/14/21 16:34 Family History Father Heart disease Hypertension Mother CVA (cerebral vascular accident) Brother Cancer Hypertension Sister Cancer Hypertension Surgical History H/O right and left heart catheterization (11/12/18) History of arthroscopy of left knee History of cardiac catheterization History of hernia repair History of partial knee replacement History of thymectomy (04/23/17) History of tonsillectomy History of transurethral resection of prostate Presence of coronary angioplasty implant and graft (~11/23/18) Social History Smoking Status: Never smoker alcohol intake: never substance use type: does not use caffeine: No EXAM Physical Exam Const Vital Signs: 09/14/21 16:26 09/14/21 16:37 09/14/21 16:39 Temperature 98.9 F Temperature Source Temporal Pulse Rate 83 75 Respiratory Rate 24 H 19 H 20 H Blood Pressure 169/133 H 169/133 H Blood Pressure Mean 145 Pulse Ox 100 98 Oxygen Delivery Method Room Air Oxygen Flow Rate (L/min) 09/14/21 16:43 09/14/21 16:45 09/14/21 16:48 Temperature Temperature Source Pulse Rate 86 89 Respiratory Rate Blood Pressure 169/133 H 122/86 H Blood Pressure Mean Pulse Ox 98 Oxygen Delivery Method Nasal Cannula Oxygen Flow Rate (L/min) 2 Positive well nourished and well developed Constitutional Narrative: Appears malaised, but alert and able to follow commands General Appearance ED: well developed HEENT Reports moist mucous membranes normocephalic and atraumatic Eyes PERRL and EOMs intact bilaterally Neck full ROM and supple Resp normal respiratory effort and clear to auscultation bilaterally Cardio regular rate and regular rhythm Cardio Narrative: Occasionally irregular but for the most part regular Heart Sounds: murmur systolic GI non-tender and non-distended Auscultation: normoactive bowel sounds Palpation: soft; Negative for pulsatile mass Back/Spine no CVA tenderness General Back: other FROM Extremity normal to inspection General Extremety ED: Negative for edema, pulses abnormal or tenderness General Extremity: Negative for edema or pulses abnormal Neuro CN's II-XII intact bilaterally and no sensory deficits noted Sensorium / Orientation: awake and alert Motor Exam: strength 5/5 throughout Skin no rashes or lesions noted and no wounds Heart Score History: Highly Suspicious ECG: Significant ST-Depression Age: >/= 65 years Risk Factors: >/= 3 Risk Factors or History of CAD Troponin: </= Normal Limit Score: 8 MDM MDM MDM Narrative Medical decision making narrative: Patient is on warfarin, so until cardiology arrived to hold off on giving any medications other than morphine, nitroglycerin, and amiodarone since he had a nonsustained run of ventricular tachycardia for about 5 or 6 seconds followed by lots of ectopy. Discussed w/ Dr. Guillermo. INR came back a little subtherapeutic 1.5. He requested that we hold off on aspirin, Brilinta, heparin, other drips as able provide medications during the procedure in the Ingredient Handler. Patient was given nitroglycerin, IV fluid bolus, and morphine here, it helped his pain a little but he was still in painful distress, his blood pressure remained stable. Disposition directly to the Ingredient Handler. Lab Data Attestation: I reviewed the patient's lab results. Labs: Laboratory Results - last 24 hr 09/14/21 09/14/21 16:30 16:30 WBC 10.2 RBC 4.90 Hgb 14.4 Hct 43.4 MCV 88.6 MCH 29.4 MCHC 33.2 RDW Std Deviation 54.4 H RDW Coeff of Eddie 17.0 H Plt Count 419 MPV 9.1 Immature Gran % (Auto) 0.400 Neut % (Auto) 55.4 Lymph % (Auto) 28.6 [place] % (Auto) 11.7 H Eos % (Auto) 3.3 Baso % (Auto) 0.6 Absolute Neuts (auto) 5.6 Absolute Lymphs (auto) 2.91 Nucleated RBC % 0 PT 18.0 H INR 1.5 APTT 28.5 Rhythm Strip Rhythm Strip: Sinus Rhythm Rate: 90 Ectopy: PVC(s) EKG Initial EKG: Attestation: I personally reviewed and interpreted this EKG as follows: Interpretation: Sinus Rhythm and S-T Elevation (septolat, I, aVL, and also V1) Comments: lateral STEMI Prior EKG tracings: available for review Prior: Changed Critical Care Time Critical Care Time: Yes Critical care time (excluding procedures): 30-74 minutes (40 min), Including time spent:, Discussing w/Patient &/or Family/Director Of Product Design, Discussing w/Consultants and Arranging Admission or Transfer Discharge Plan Dx/Rx/DC Orders Clinical Impression: ST elevation (STEMI) myocardial infarction, Paroxysmal A-fib, Nonrheumatic aortic (valve) stenosis, Ventricular tachycardia, nonsustained Disposition Disposition: Acute Care [facility]
[2021-09-14 16:41] LABS: Absolute Lymphocyte Count 2.91 X10^3/uL (0.83-4.51); Absolute Neutrophil Count 5.6 X10^3/uL (2.0-7.7); Basophil# 0.06 X10^3/uL; Basophil% 0.6 % (0-1); Eosinophil# 0.34 X10^3/uL; Eosinophils% 3.3 % (0-5); Hematocrit 43.4 % (40-54); Hemoglobin 14.4 g/dL (13.0-16.5); Lymphocyte # 2.91 X10^3/ul (0.83-4.51); Lymphocyte % 28.6 % (19-41); Mean Corp Hgb Conc 33.2 g/dL (32-36); Mean Corpuscular Hgb 29.4 pg (27.0-32.0); Mean Corpuscular Volume 88.6 fL (80-94); Mean Platelet Vol. 9.1 fl (6.2-12.0); Monocyte# 1.19 X10^3/uL; Monocyte% 11.7 % (0-10); NRBC Flagged by Analyzer 0 % (0-5); Neutrophil # 5.63 X10^3/uL (2.7-7.7); Neutrophil % 55.4 % (47-70); Platelet Count 419 K/mm3 (150-450); RBC Distribution Width SD 54.4 fl (35.1-43.9); White Blood Count 10.2 K/mm3 (4.4-11.0)
[2021-09-14] MEDS: Nitroglycerin Oint 1 INCH PACKET TD (16:45)
[2021-09-14] MEDS: Morphine 4 MG/ML Syringe IV (16:45)
[2021-09-14] MEDS: Nitroglycerin SL (ED/IMG/CATH) 0.4 MG TABLET SL (16:48)
--- NOTE | 2021-09-14 16:49 | RAD_ITS ---
STUDY: X-RAY CHEST REASON FOR EXAM: Male, 75 years old. chest pain TECHNIQUE: AP COMPARISON: None. FINDINGS: The lungs are clear and expanded. There is no demonstrated pleural abnormality. There is mild cardiac enlargement. Normal mediastinum and madeline. Normal visualized pulmonary arteries. There is atherosclerotic calcification of the aortic arch with tortuosity. There is demineralization of the osseous structures. Old right rib fractures. There is no demonstrated abnormality of the visualized soft tissue structures of the upper abdomen. RAD/Chest 1 View (Portable) IMPRESSION: Nonacute portable x-ray examination of the chest. Electronically Signed: Royer Alvarez MD (Brooks) at 17:11 EDT ,
[2021-09-14 16:50] LABS: International Normalized Ratio 1.5
[2021-09-14 16:51] LABS: Partial Thromboplast Time 28.5 Seconds (24.1-36.2)
[2021-09-14] MEDS: Morphine 2 MG/ML Syringe IV (16:53)
--- NOTE | 2021-09-14 16:55 | HP.PCM.HOS_ITS ---
Documented by User: Tammy Rosa NP, AMMONIUM NITRATE NEUTRALIZER-C 09/14/21 17:21 HPI - General HPI Narrative HANG KEENAN, is a 75 M who presents to the emergency room due to chest pain. Patient was outside working in the yard when he developed chest pain. He called his son who brought him to the emergency room. Patient appears restless and very uncomfortable upon examination in the emergency room. He reports 10/10 crushing pain in the center of his chest. He denies pain radiation. He describes associated shortness of breath, nausea and diaphoresis. STEMI alert called in ER. He has a past medical history of CAD with history of stents in 2019, nonrheumatic aortic valve stenosis, paroxysmal atrial fibrillation, SVT, hypertension, hyperlipidemia, obstructive sleep apnea, BPH, hypothyroidism. [facility] Medical History Arthritis Atelectasis Atherosclerotic heart disease of [place] coronary artery without angina pectoris Cancer Cardiology follow-up encounter Carotid dissection, 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) Chest pain Chest pain Chest tightness Easy bruising Essential hypertension Excessive bleeding Hearing loss of left ear Hematuria High cholesterol History of BPH History of echocardiogram History of kidney stones History of pericarditis (~04/2017) History of stress test Hyperlipidemia Hypothyroidism Nonrheumatic aortic (valve) stenosis Nonrheumatic mitral valve regurgitation SERGO (obstructive sleep apnea) Paroxysmal A-fib Right inguinal hernia Stented coronary artery (11/23/18) Thymoma, malignant Wears glasses Wears partial dentures Home Medications levothyroxine 75 mcg PO DAILY 01/07/17 [History Last Taken 07/10/21] nitroglycerin 0.4 mg sublingual tablet 0.4 mg SUBLINGUAL Q5-15M PRN #25 tab 12/21/18 [Rx Last Taken Unknown] lysine 500 mg tablet 500 mg PO DAILY 06/09/19 [History Last Taken 11/19/19 08:00] aspirin 81 mg PO DAILY 11/19/19 [History Last Taken 07/03/21] finasteride 5 mg PO DAILY #90 tab 11/21/19 [Rx Last Taken Unknown] warfarin 7.5 mg tablet 7.5 mg PO QODAY tab 01/19/20 [History Last Taken 07/05/21] carvedilol 6.25 mg tablet 6.25 mg PO BID tab 06/27/21 [History Last Taken 07/10/21] cholecalciferol (vitamin D3) 25 mcg (1,000 unit) tablet 25 mcg PO DAILY 06/27/21 [History Last Taken Unknown] cyanocobalamin (vitamin B-12) 1,000 mcg tablet 1,000 mcg PO DAILY 06/27/21 [History Last Taken Unknown] acetaminophen 1,000 mg PO TID 14 Days #84 tab 07/12/21 [Rx Last Taken Unknown] amlodipine 5 mg tablet 5 mg PO DAILY tab 07/31/21 [History Last Taken Unknown] multivitamin 1 tab PO DAILY 07/31/21 [History Last Taken Unknown] rosuvastatin 5 mg tablet 5 mg PO DAILY tab 07/31/21 [History Last Taken Unknown] flecainide 50 mg tablet 50 mg PO BID #180 tab 08/05/21 [Rx Last Taken Unknown] warfarin 5 mg PO QODAY 09/14/21 [History Last Taken Unknown] Allergy/AdvReac Type Severity Reaction Status Date / Time cefuroxime Allergy Intermediate Rash Verified 09/14/21 16:34 rosuvastatin [From Crestor] AdvReac Severe severe Verified 09/14/21 16:34 myalgias lisinopril AdvReac Intermediate didn't Verified 09/14/21 16:34 control bp well, labile cephalexin AdvReac Pain in Verified 09/14/21 16:34 joints levofloxacin [From Levaquin] AdvReac achiness Verified 09/14/21 16:34 Family History (Reviewed 09/14/21 @ 17:03 by Tammy Rosa AMMONIUM NITRATE NEUTRALIZER, AMMONIUM NITRATE NEUTRALIZER-C) Father Heart disease Hypertension Mother CVA (cerebral vascular accident) Brother Cancer Hypertension Sister Cancer Hypertension Surgical History H/O right and left heart catheterization (11/12/18) History of arthroscopy of left knee History of cardiac catheterization History of hernia repair History of partial knee replacement History of thymectomy (04/23/17) History of tonsillectomy History of transurethral resection of prostate Presence of coronary angioplasty implant and graft (~11/23/18) Social History (Reviewed 09/14/21 @ 17:03 by Tammy Rosa AMMONIUM NITRATE NEUTRALIZER, AMMONIUM NITRATE NEUTRALIZER-C) Smoking Status: Never smoker alcohol intake: never substance use type: does not use caffeine: No ROS ROS Narrative Diaphoresis Constitutional Constitutional: Denies change in weight, chills, fatigue or fever(s) Cardiovascular Cardiovascular: Reports chest pain; Denies edema, lightheadedness, palpitations or syncope Respiratory/Chest Respiratory/Chest: Reports dyspnea; Denies cough, productive cough or wheezing Gastrointestinal Gastrointestinal: Reports nausea; Denies abdominal pain, constipation, diarrhea or vomiting Genitourinary Genitourinary: Denies burning urination, difficulty urinating, dysuria, hematuria, urinary frequency, urinary incontinence or urinary urgency Musculoskeletal Musculoskeletal: Denies back pain, joint pain or muscle weakness Integumentary Integumentary: Denies erythema, lesions, rash or wounds Neurologic Neurologic: Denies abnormal speech, confusion, dizziness, focal weakness, numbness, paresthesias, seizure-like activity or syncope Psychiatric Psychiatric: Denies anxiety or depression Hematologic/Lymphatic Hematologic/Lymphatic: Denies anemia, easy bleeding or easy bruising Allergic/Immunologic Allergic/Immunologic: Denies hives or asthma Vital Signs Vital Signs Vital Signs: 09/14/21 16:26 09/14/21 16:37 09/14/21 16:39 Temperature 98.9 F Temperature Source Temporal Pulse Rate 83 75 Respiratory Rate 24 H 19 H 20 H Blood Pressure 169/133 H 169/133 H Blood Pressure Mean 145 Pulse Ox 100 98 Oxygen Delivery Method Room Air Oxygen Flow Rate (L/min) 09/14/21 16:43 09/14/21 16:45 09/14/21 16:48 Temperature Temperature Source Pulse Rate 86 89 Respiratory Rate Blood Pressure 169/133 H 122/86 H Blood Pressure Mean Pulse Ox 98 Oxygen Delivery Method Nasal Cannula Oxygen Flow Rate (L/min) 2 Weight Weight: 160 lb Body Mass Index (BMI) 27.4 Physical Exam Const alert and oriented x3 Constitutional Narrative: Appears restless, uncomfortable/painful Orientation / Consciousness: awake, oriented to person, oriented to place and oriented to time HEENT normocephalic and moist oral mucous membranes Eyes PERRL, EOMs intact bilaterally and conjunctivae normal Neck no lymphadenopathy Resp normal respiratory effort and clear to auscultation bilaterally Cardio regular rate and regular rhythm Heart Sounds: murmur Peripheral Pulses: pulses 2+ throughout GI normal to inspection, nondistended, normoactive bowel sounds, non-tender and non-distended Extremity normal to inspection Skin no rashes or lesions noted Lesions: no lesions Rashes: no rashes Trauma: no lacerations or abrasions Neuro CN's II-XII intact bilaterally, no focal motor deficits, no sensory deficits noted and deep tendon reflexes 2+ bilaterally Psych mental status grossly normal Mood & Affect: anxious Results Lab / Micro Data Result Diagrams: 09/14/21 16:30 09/14/21 16:30 Labs: Laboratory Results - last 24 hr 09/14/21 16:30: WBC 10.2, RBC 4.90, Hgb 14.4, Hct 43.4, MCV 88.6, MCH 29.4, MCHC 33.2, RDW Std Deviation 54.4 H, RDW Coeff of Eddie 17.0 H, Plt Count 419, MPV 9.1, Immature Gran % (Auto) 0.400, Neut % (Auto) 55.4, Lymph % (Auto) 28.6, [place] % (Auto) 11.7 H, Eos % (Auto) 3.3, Baso % (Auto) 0.6, Absolute Neuts (auto) 5.6, Absolute Lymphs (auto) 2.91, Nucleated RBC % 0 09/14/21 16:30: PT 18.0 H, INR 1.5, APTT 28.5 Rhythm Strip Rhythm Strip: Sinus Rhythm Rate: 90 Ectopy: PVC(s) Assessment & Plan Assessment/Plan (1) ST elevation (STEMI) myocardial infarction: PLAN: 1. STEMI-aspirin, morphine, nitro in ED. STEMI alert called and patient to undergo emergent heart cath. Further recommendations per cardiology. 2. Nonsustained V. tach-amnio bolus in ER. Emergent cath as noted above. 3. CAD-stenting to LAD and balloon angioplasty to the ostium of the diagonal 11/2018. On aspirin, statin, carvedilol. 4. Nonrheumatic aortic valve stenosis-echocardiogram June 2021 demonstrated an EF of 65%, moderate to severe aortic valve stenosis. 5. Paroxysmal atrial fibrillation-on flecainide, Coumadin. 6. Hypertension-stable, continue amlodipine, carvedilol. 7. Hyperlipidemia-continue statin. 8. Obstructive sleep apnea-continue home PAP regimen. 9. BPH-continue finasteride, history of TURP. 10. Hypothyroidism-continue Synthroid. DVT prophylaxis- coumadin This patient was seen by Tammy Rosa NP-Lorrie under the supervision of Dr. Gonzalez. Time spent examining patient, reviewing data and subsequent management of care: 16 minutes Documented by User: Dr. Bharat Gonzalez DO 09/14/21 18:52 HPI - General General Date of Admission: 09/14/21 [facility] Medical History Arthritis Atelectasis Atherosclerotic heart disease of [place] coronary artery without angina pectoris Cancer Cardiology follow-up encounter Carotid dissection, 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) Chest pain Chest pain Chest tightness Easy bruising Essential hypertension Excessive bleeding Hearing loss of left ear Hematuria High cholesterol History of BPH History of echocardiogram History of kidney stones History of pericarditis (~04/2017) History of stress test Hyperlipidemia Hypothyroidism Nonrheumatic aortic (valve) stenosis Nonrheumatic mitral valve regurgitation SERGO (obstructive sleep apnea) Paroxysmal A-fib Right inguinal hernia Stented coronary artery (11/23/18) Thymoma, malignant Wears glasses Wears partial dentures Home Medications levothyroxine 75 mcg PO DAILY 01/07/17 [History Last Taken 07/10/21] nitroglycerin 0.4 mg sublingual tablet 0.4 mg SUBLINGUAL Q5-15M PRN #25 tab 12/21/18 [Rx Last Taken Unknown] lysine 500 mg tablet 500 mg PO DAILY 06/09/19 [History Last Taken 11/19/19 08:00] aspirin 81 mg PO DAILY 11/19/19 [History Last Taken 07/03/21] finasteride 5 mg PO DAILY #90 tab 11/21/19 [Rx Last Taken Unknown] warfarin 7.5 mg tablet 7.5 mg PO QODAY tab 01/19/20 [History Last Taken 07/05/21] carvedilol 6.25 mg tablet 6.25 mg PO BID tab 06/27/21 [History Last Taken 07/10/21] cholecalciferol (vitamin D3) 25 mcg (1,000 unit) tablet 25 mcg PO DAILY 06/27/21 [History Last Taken Unknown] cyanocobalamin (vitamin B-12) 1,000 mcg tablet 1,000 mcg PO DAILY 06/27/21 [History Last Taken Unknown] acetaminophen 1,000 mg PO TID 14 Days #84 tab 07/12/21 [Rx Last Taken Unknown] amlodipine 5 mg tablet 5 mg PO DAILY tab 07/31/21 [History Last Taken Unknown] multivitamin 1 tab PO DAILY 07/31/21 [History Last Taken Unknown] rosuvastatin 5 mg tablet 5 mg PO DAILY tab 07/31/21 [History Last Taken Unknown] flecainide 50 mg tablet 50 mg PO BID #180 tab 08/05/21 [Rx Last Taken Unknown] warfarin 5 mg PO QODAY 09/14/21 [History Last Taken Unknown] Allergy/AdvReac Type Severity Reaction Status Date / Time cefuroxime Allergy Intermediate Rash Verified 09/14/21 16:34 rosuvastatin [From Crestor] AdvReac Severe severe Verified 09/14/21 16:34 myalgias lisinopril AdvReac Intermediate didn't Verified 09/14/21 16:34 control bp well, labile cephalexin AdvReac Pain in Verified 09/14/21 16:34 joints levofloxacin [From Levaquin] AdvReac achiness Verified 09/14/21 16:34 Family History (Reviewed 09/14/21 @ 17:03 by Tammy Rosa AMMONIUM NITRATE NEUTRALIZER, AMMONIUM NITRATE NEUTRALIZER-C) Father Heart disease Hypertension Mother CVA (cerebral vascular accident) Brother Cancer Hypertension Sister Cancer Hypertension Surgical History H/O right and left heart catheterization (11/12/18) History of arthroscopy of left knee History of cardiac catheterization History of hernia repair History of partial knee replacement History of thymectomy (04/23/17) History of tonsillectomy History of transurethral resection of prostate Presence of coronary angioplasty implant and graft (~11/23/18) Social History Smoking Status: Never smoker alcohol intake: never substance use type: does not use caffeine: No Results Lab / Micro Data Result Diagrams: 09/14/21 16:30 09/14/21 16:30 Charges/Coding Addendum Addendum: Patient was seen and examined independently of Tammy Rosa, came to the emergency room today at [facility] for evaluation of precordial chest pain, patient was outside working in his yard when he developed chest pain, he called his son who brought him into the emergency room by private car. At the time of my examination, patient complains of severe precordial chest pain, he appears diaphoretic, he does not appear short of breath. Patient states his chest pain is a 10 out of 10 in intensity. EKG was performed which showed an acute STEMI involving the anterior lateral wall on the EKG. On examination he appeared uncomfortable secondary to severe precordial chest. Vital signs as documented. Skin warm and dry and without overt rashes. Neck without JVD, neck was supple, trachea midline, thyroid was normal. Lungs clear bilaterally, normal air movement was noted. Heart exam notable for regular rhythm, normal sounds and absence of murmurs, rubs or gallops. Abdomen unremarkable and without evidence of organomegaly, masses, or abdominal aortic enlargement. Bowel sounds are present, abdomen is not distended. Extremities nonedematous, no cyanosis was noted, no clubbing was noted. Neuro: Cranial nerves II through XII are grossly intact, no focal motor deficits were noted, sensation to light touch and pinprick intact, motor exam 5/5 throughout. Psych: Patient is alert and oriented x3, patient appears in distress secondary to severe precordial chest pain. Patient was taken to the cardiac Human Factors Scientist, his LAD was noted to be 100% occluded and he had a JOSEFINA inserted. There is also some coronary disease in the circumflex artery which was not addressed during the cardiac catheterization. Impression: #[address] elevation anterior lateral MN-again patient underwent JOSEFINA insertion in the LAD, he will be admitted to ICU for further care, patient's medications will be continued with additional medications ordered per cardiology. #2 nonsustained ventricular tachycardia-patient was started on amiodarone by the emergency room physician due to a 6-second episode of nonsustained ventricular tachycardia, following this episode there were PACs noted. #3 paroxysmal atrial fibrillation-patient is currently on Coumadin, this will be continued, INR will be rechecked #4 hyperlipidemia-patient will remain on a statin #5 hypothyroidism-patient is on Synthroid I have reviewed Tammy Rosa's history and physical including her medical assessment and plan of care and endorse it with the above additions. Total clinical time spent by myself addressing the patient's medical issues, reviewing the patient's data, and collaborating with the patient's care team: 55 minutes. Visit Charges Inpatient E&M: 27588 Init Hosp L3
[2021-09-14 17:02] LABS: Anion Gap 9 (5-15); BUN 22 mg/dL (7-18); BUN/Creat Ratio 18.3 RATIO (10-20); Calcium,Total 9.6 mg/dL (8.5-10.1); Chloride 108 mmol/L (98-107); EST Glomerular Filtration Rate 62 mL/min (>60); Est Glom Filt Rate - Afr Amer 75 mL/min (>60); Estimated Creatinine Clearance 43.17 ml/min; Glucose 128 mg/dL (74-106); Potassium 4.2 mmol/L (3.5-5.1); Sodium Level 139 mmol/L (136-145); Troponin-I HS 8 pg/mL (3.0-78.0)
--- NOTE | 2021-09-14 17:12 | CM.ED ---
Addendum entered by Dasha Roman 09/14/21 18:16: BYRON provided emotional support to patient's . BYRON also took patient's machine adjuster leader case trim to the Professor Of Early Childhood Education to provide support. BYRON spoke to finishing lab technician staff and they advised that they would take the patient's family to the ICU. SW remains available if needs arise. Dasha HAZEL Original Note: BYRON Note Referral Source: STEMI Referral Reason: STEMI SW responded to STEMI alert. Patient's son was present in the ED. Patient's is on the way. BYRON walked patient's son to the ammunition assembly laborer and provided emotional support. Dasha HAZEL
--- NOTE | 2021-09-14 18:12 | PCIREPORT_ITS ---
PCI Cardiac Cath Report PCI Report: 1. Successful PCI of the culprit, occluded proximal LAD stent with predilatation, followed by placement of drug-eluting stent 3 x 32 mm Synergy Postdilated with 3 x 20 mm NC balloon With reduction of stenosis from 100% to 0% And improvement of NATHALIE from NATHALIE 0 to NATHALIE-3 flow. 2. Selective left coronary angiography 3. Selective right cholangiography 4. Placement of TR band to maintain hemostasis of the right radial artery arteriotomy site Consent; Risk and benefit of the procedure explained, in detail to the patient, he elected to proceed, and informed consent obtained. Preprocedure diagnosis: 75-year-old patient presented to the emergency room with severe retrosternal chest pain, evidently he was working outside in the yard when he developed severe retrosternal chest pain, patient called his son who brought him to the emergency room he was very restless and very uncomfortable when I saw him in the ER on examination. With severe crushing chest pain described as 10 out of 10. In the center of the chest no specific radiation From review of the record patient had a history of PCI and stent by Dr. Bermudez in 2019 where he stented the mid LAD using drug-eluting stent 2.5 mm in diameter/LEV/and patient has nonrheumatic aortic valve stenosis paroxysmal atrial fibrillation supraventricular tachycardia hypertension hyperlipidemia obstructive sleep apnea and was on medical therapy. Also noted he will currently was taking Coumadin. Carvedilol, amlodipine, rosuvastatin and he was on flecainide 50 mg twice daily in addition to warfarin. Physical exam in the ER cardiac rhythm is sinus he had episode of nonsustained V. tach requiring 150 mg of IV amiodarone. S1-S2 is regular systolic murmur heard in the aortic valve area no diastolic murmur Chest exam clear to auscultation bilateral. Based on the clinical presentation patient was taken as an emergency to the [facility], I did not see ST elevation in the LAD distribution minor change in the septal region V1 V2. Procedures in detail; Patient was brought to the emergency to the [facility], Access obtained from the right radial artery 6 [place] sheath placed in the right radial artery, will proceed with a diagnostic catheter we used a 5 [place]ian [place] as well we used 5 Burundian JL 4.5 Cannulated the right coronary without difficulty multiple views right colostomy obtained following this catheter exchanged for 5 Burundian JL 4.5 cannulated the left coronary ostium and multiple views the left wrist and were obtained following this we identified the culprit which is occluded proximal LAD stent. Then we proceed with interventional plan Interventional equipments and plan; 1. 6 Bur[place]ian 3.5 EBU guide catheter 2. 0 0.14 run-through extra floppy 180 cm straight wire 3. 0.035 to 60 cm exchange wire 4. 2 x 15 mm emerge MR balloon 5. 3 x 32 mm drug-eluting stent/JOSEFINA-synergy 6. 3 x 20 mm NC balloon Medication used in the [facility]; 1. Was given a total of 10,000 heparin 3000 through the right radial sheath 5000 and ACT level was still on the lower to 14 then we will add another 2000 heparin 2. We will give 2 bolus of Integrilin with Integrilin infusion 3. Brilinta 180 mg. 4. He was given also aspirin in the ER Procedure in detail; Following access from the right radial artery proceed with the 5 [place] catheter advanced ascending aorta cannulated the right coronary ostium multiple views of the right colostomy obtained following this catheter exchanged for 5 Burundian JL 4.5 and selective angiographic view left difficulty tomorrow plan Following this we identified the culprit lesion is occluded proximal LAD stent then will proceed with the guide catheter which is a 6 Burundian 3.5 EBU guide catheter cannulated the left main and then across the lesion using run-through wire and then we proceed with balloon dilatation using 2 x 15 mm balloon followed by placement of drug-eluting stent 3 x 32 mm Synergy, followed by postdilatation using 3 3 x 20 mm NC balloon and achieve a NATHALIE-3 flow and excellent result. Findings #1 left main is the normal angiographically bifurcating into LAD and left circumflex 2. Proximal LAD stent is occluded 3. Large OM1 with 75% stenosis in the midportion of the OM1 4. RCA large dominant with no significant obstructive atherosclerosis Conclusion and recommendation 1. Successful PCI of the culprit lesion is identified There is a lesion involving the ostial diagonal however this was left because he had 2 layers of stents in the mid LAD which will make it difficult to cannulate and to intervene on the diagonal there is a NATHALIE-3 flow in the diagonal and the left it alone The OM1 lesion is significant however patient following the PCI does not have any symptoms of chest pain hemodynamically stable and I will plan to do that as an outpatient in elective 2 to 3 weeks. 2. This patient's primary precision dyer Dr. Bravo and I will discuss the case with him and he will resume care on Thursday Echocardiogram will be performed on Thursday Patient will continue on DAPT Brilinta 90 mg twice daily in addition to low-dose aspirin 3. We will discuss need for further anticoagulation with his primary ca rdiologist Patient will start on phase 1 cardiac rehab program.
--- NOTE | 2021-09-14 18:15 | EKG12_ITS ---
Test Reason : Blood Pressure : / mmHG Vent. Rate : 073 BPM Atrial Rate : 073 BPM P-R Int : 184 ms QRS Dur : 108 ms QT Int : 438 ms P-R-T Axes : 042 -35 088 degrees QTc Int : 482 ms Normal sinus rhythm with sinus arrhythmia Left axis deviation T wave abnormality consider anterior-lateral ischemia Abnormal ECG Confirmed by MARGIE SANCHEZ, FREEMAN ([id number]), editorial assistant MOAR BAEZ ([id number]) on 09/18/2021 10:07:31 AM Referred By: Toro Guillermo Confirmed By:FREEMAN HANSON MD
[2021-09-14 18:54] LABS: Hematocrit 41.4 % (40-54); Hemoglobin 13.7 g/dL (13.0-16.5); Mean Corp Hgb Conc 33.1 g/dL (32-36); Mean Corpuscular Hgb 29.5 pg (27.0-32.0); Mean Corpuscular Volume 89.2 fL (80-94); Mean Platelet Vol. 9.3 fl (6.2-12.0); Platelet Count 348 K/mm3 (150-450); RBC Distribution Width SD 55.3 fl (35.1-43.9); Red Blood Count 4.64 M/mm3 (4.6-6.2); White Blood Count 14.2 K/mm3 (4.4-11.0)
--- NOTE | 2021-09-14 19:10 | ECHOCS_ITS ---
Reason For Study: STEMI Procedure This was a 2D Doppler, Color Flow transthoracic echocardiogram. The study was technically difficult. Contrast injection was performed. Exam performed portable in ICU/CCU. Left Ventricle Normal LV size. Moderate concentric left ventricular hypertrophy. Segmental dysfunction with preserved ejection fraction (see wall motion). The estimated ejection fraction is 60 %. There is evidence of diastolic dysfunction. Mid-Anterior : Hypokinetic. Mid-anteroseptal : Hypokinetic. Anterior [place] : Hypokinetic. Lateral [place] : Dyskinetic. Right Ventricle Normal RV size. Normal systolic function. Atria Normal left atrium. Normal right atrium. No doppler evidence for ASD. Mitral Valve There is mild to moderate mitral annular calcification. Extension of the mitral annular calcification on the base of the posterior mitral valve leaflet. Trivial mitral valve insufficiency. Tricuspid Valve Normal tricuspid valve. Mild tricuspid valve insufficiency. Right ventricular systolic pressure estimated to be 26 mmHg. Aortic Valve Trisinus/trileaflet aortic valve. Mild diffuse aortic valve thickening. Moderate focal aortic valve calcification. Moderate to severe aortic valve stenosis. Trivial aortic valve insufficiency. Pulmonic Valve The pulmonic valve is not well visualized. Great Vessels Normal sized aortic root. Pericardium/Pleural No pericardial effusion. Medication Diluted definity 2ml given slow IV push to enhance endocardial definition. MMode/2D Measurements & Calculations LVIDd: 4.6 cm IVSd: 1.6 cm LVOT diam: 2.0 cm LVIDs: 3.1 cm LVPWd: 1.3 cm RVDd: 3.6 cm FS: 32.3 % LVOT area: 3.2 cm2 Ao root diam: 3.6 cm LAV(MOD-bp): 62.5 ml LVAd ap4: 36.2 cm2 LAV(MOD-bp) Indexed: 35.3 ml/m2 LVLd ap4: 8.9 cm LAV(MOD-sp2): 58.2 ml EDV(MOD-sp4): 118.6 ml LAV(MOD-sp4): 62.1 ml EDV(sp4-el): 124.6 ml LVAs ap4: 24.0 cm2 LVLs ap4: 8.6 cm ESV(MOD-sp4): 54.7 ml ESV(sp4-el): 57.1 ml EF(MOD-sp4): 53.9 % EF(sp4-el): 54.2 % LVAd ap2: 32.5 cm2 SV(MOD-sp4): 63.9 ml SV(MOD-sp2): 53.3 ml LVLd ap2: 9.0 cm EDV(MOD-sp2): 94.3 ml EDV(sp2-el): 99.0 ml LVAs ap2: 20.2 cm2 LVLs ap2: 8.2 cm ESV(MOD-sp2): 41.1 ml ESV(sp2-el): 42.5 ml EF(MOD-sp2): 56.4 % SV(sp4-el): 67.5 ml LA dimension(2D): 3.7 cm LA A4 area: 20.7 cm2 RA A4 area: 11.9 cm2 Doppler Measurements & Calculations MV E max kevin: 51.8 cm/sec Lat Peak E' Kevin: 3.1 cm/sec Med Peak E' Kevin: 3.5 cm/sec MV A max kevin: 91.5 cm/sec E/E' lat: 16.7 E/E' med: 14.9 MV E/A: 0.57 Ao V2 max: 310.6 cm/sec LV V1 max: 84.3 cm/sec SV(LVOT): 54.8 ml Ao max P.7 mmHg LV V1 max P.9 mmHg Ao V2 mean: 222.9 cm/sec LV V1 mean P.7 mmHg Ao mean P.2 mmHg LV V1 mean: 62.6 cm/sec Ao V2 VTI: 56.8 cm LV V1 VTI: 16.9 cm NADEGE(I,D): 0.96 cm2 NADEGE(V,D): 0.88 cm2 PA V2 max: 142.3 cm/sec TR max kevin: 239.3 cm/sec TR max P.9 mmHg ECHO/Echo Complete W/ Contrast Interpretation Summary The study was technically difficult. Contrast injection was performed. Segmental dysfunction with preserved ejection fraction (see wall motion). The estimated ejection fraction is 60 %. Moderate concentric left ventricular hypertrophy. There is mild to moderate mitral annular calcification. Extension of the mitral annular calcification on the base of the posterior mitr al valve leaflet Trivial mitral valve insufficiency. Mild tricuspid valve insufficiency. Moderate to severe aortic valve stenosis. Trivial aortic valve insufficiency. Right ventricular systolic pressure estimated to be 26 mmHg. There is evidence of diastolic dysfunction. Ordering Physician: Bharat Gonzalez Referring Physician: Tapan Cornelius Performed By: Radha Bruce RDCS
[2021-09-14] MEDS: 0.9% Normal Saline 1,000 ML 75 ML IV (19:49)
[2021-09-14 20:19] LABS: Troponin-I HS 7863 pg/mL (3.0-78.0)
[2021-09-14] MEDS: Flecainide 100 MG Tablet 50 MG PO (21:52)
[2021-09-14] MEDS: Atorvastatin Calcium 40 MG Tablet PO (21:52)
[2021-09-14 23:48] LABS: Troponin-I HS 25179 pg/mL (3.0-78.0)
[2021-09-15] VITALS (27 sets, daily range): BP systolic 97–145; BP diastolic 71–97; PULSE 62–92; RESP 11–20; TEMP 36.4–36.9; O2SAT 92–98
[2021-09-15] MEDS: Morphine 4 MG/ML Syringe IV ×2 (01:57→06:05)
[2021-09-15] MEDS: Ondansetron 4 MG/2 ML Vial IV (01:58)
[2021-09-15 04:21] LABS: Hematocrit 40.9 % (40-54); Hemoglobin 13.6 g/dL (13.0-16.5); Mean Corp Hgb Conc 33.3 g/dL (32-36); Mean Corpuscular Hgb 29.3 pg (27.0-32.0); Mean Corpuscular Volume 88.1 fL (80-94); Mean Platelet Vol. 9.1 fl (6.2-12.0); Platelet Count 327 K/mm3 (150-450); RBC Distribution Width CV 17.2 % (11.6-14.6); RBC Distribution Width SD 54.9 fl (35.1-43.9); Red Blood Count 4.64 M/mm3 (4.6-6.2)
[2021-09-15 04:42] LABS: AST(SGOT) 209 U/L (15-37); Alanine Aminotransfer ALT/SGPT 46 U/L (16-61); Albumin, Serum 3.8 g/dL (3.2-5.0); Alkaline Phosphatase 72 U/L (45-117); Anion Gap 9 (5-15); BUN 17 mg/dL (7-18); BUN/Creat Ratio 19.3 RATIO (10-20); Calcium,Total 8.5 mg/dL (8.5-10.1); Chloride 99 mmol/L (98-107); Creatinine, Serum 0.88 mg/dL (0.70-1.30); EST Glomerular Filtration Rate 89 mL/min (>60); Est Glom Filt Rate - Afr Amer 107 mL/min (>60); Estimated Creatinine Clearance 58.86 ml/min; Globulin 3.8 g/dL (2.2-4.2); Glucose 101 mg/dL (74-106); Potassium 3.7 mmol/L (3.5-5.1); Protein, Total 7.6 g/dL (6.4-8.2); Sodium Level 134 mmol/L (136-145)
[2021-09-15 05:07] LABS: International Normalized Ratio 1.4; Prothrombin Time (Protime)PT. 17.1 SECONDS (11.7-14.9)
[2021-09-15] MEDS: Levothyroxine 75 MCG Tablet PO (06:04)
[2021-09-15] MEDS: TITRATION PARAMETER CHANGE 1 EACH IV (07:04)
--- NOTE | 2021-09-15 07:24 | PCM.PN.HOSP ---
Objective Data Objective Data Vital Signs: Vital Signs Temp Pulse Resp BP Pulse Ox 98.4 F 67 18 128/90 H 97 09/15/21 04:00 09/15/21 07:00 09/15/21 07:00 09/15/21 07:00 09/15/21 07:00 Oxygen Flow Rate (L/min) 2 Oxygen Delivery Method Room Air Weight: 157 lb 13.616 oz Body Mass Index (BMI) 27.6 Intake & Output: Intake and Output for Last 24 Hours 09/13/21 09/14/21 09/15/21 23:59 23:59 23:59 Intake Total 300 / 500 1200 / 1200 Output Total 700 / 1450 1350 / 1350 Balance -400 / -950 -150 / -150 Lab / Micro Data Result Diagrams: 09/15/21 04:15 09/15/21 04:15 Labs: Laboratory Results - last 24 hr 09/14/21 16:30: WBC 10.2, RBC 4.90, Hgb 14.4, Hct 43.4, MCV 88.6, MCH 29.4, MCHC 33.2, RDW Std Deviation 54.4 H, RDW Coeff of Eddie 17.0 H, Plt Count 419, MPV 9.1, Immature Gran % (Auto) 0.400, Neut % (Auto) 55.4, Lymph % (Auto) 28.6, [place] % (Auto) 11.7 H, Eos % (Auto) 3.3, Baso % (Auto) 0.6, Absolute Neuts (auto) 5.6, Absolute Lymphs (auto) 2.91, Nucleated RBC % 0 09/14/21 16:30: PT 18.0 H, INR 1.5, APTT 28.5 09/14/21 16:30: Sodium 139, Potassium 4.2, Chloride 108 H, Carbon Dioxide 22.0, Anion Gap 9, BUN 22 H, Creatinine 1.20, Estim Creat Clear Calc 43.17, Est GFR (MDRD) Af Amer 75, Est GFR (MDRD) Non-Af 62, BUN/Creatinine Ratio 18.3, Glucose 128 H, Calcium 9.6, Troponin I High Sens 8 09/14/21 18:35: WBC 14.2 H, RBC 4.64, Hgb 13.7, Hct 41.4, MCV 89.2, MCH 29.5, MCHC 33.1, RDW Std Deviation 55.3 H, RDW Coeff of Eddie 17.0 H, Plt Count 348, MPV 9.3 09/14/21 19:40: Troponin I High Sens [id number] H* 09/14/21 22:00: Troponin I High Sens [id number] H* 09/15/21 02:05: Troponin I High Sens [id number] H* 09/15/21 04:15: WBC 11.0, RBC 4.64, Hgb 13.6, Hct 40.9, MCV 88.1, MCH 29.3, MCHC 33.3, RDW Std Deviation 54.9 H, RDW Coeff of Eddie 17.2 H, Plt Count 327, MPV 9.1 09/15/21 04:15: Sodium 134 L, Potassium 3.7, Chloride 99, Carbon Dioxide 26.0, Anion Gap 9, BUN 17, Creatinine 0.88, Estim Creat Clear Calc 58.86, Est GFR (MDRD) Af Amer 107, Est GFR (MDRD) Non-Af 89, BUN/Creatinine Ratio 19.3, Glucose 101, Calcium 8.5, Total Bilirubin 1.50 H, AST 209 H, ALT 46, Alkaline Phosphatase 72, Total Protein 7.6, Albumin 3.8, Globulin 3.8, Albumin/Globulin Ratio 1.0 09/15/21 04:15: PT Cancelled, INR Cancelled 09/15/21 04:50: PT 17.1 H, INR 1.4 Radiography Diagnostic Testing: Radiology Impression Chest X-Ray 09/14/21 16:49 IMPRESSION: Nonacute portable x-ray examination of the chest. Electronically Signed: Royer Alvarez MD (Brooks) at 17:11 EDT Reading Location ID and State: [facility] / [place] , Service support , Rhythm Strip Rhythm Strip: Sinus Rhythm Rate: 90 Ectopy: PVC(s) Assessment & Plan Assessment/Plan (1) ST elevation (STEMI) myocardial infarction: PLAN: 1. STEMI-aspirin, morphine, nitro in ED. STEMI alert called and patient to undergo emergent heart cath. Further recommendations per cardiology. The patient had successful PCI of the culprit occluded proximal LAD stent with dilatation and JOSEFINA. Large OM1 with 75% restenosis in the midportion. RCA large dominant with no significant obstruction. 2. Nonsustained V. tach-amnio bolus in ER. Patient on amiodarone drip 3. CAD-stenting to LAD and balloon angioplasty to the ostium of the diagonal 11/2018. On aspirin, statin, carvedilol. 4. Nonrheumatic aortic valve stenosis-echocardiogram June 2021 demonstrated an EF of 65%, moderate to severe aortic valve stenosis. 5. Paroxysmal atrial fibrillation-on flecainide, Coumadin. 6. Hypertension-stable, continue amlodipine, carvedilol. 7. Hyperlipidemia-continue statin. 8. Obstructive sleep apnea-continue home PAP regimen. 9. BPH-continue finasteride, history of TURP. 10. Hypothyroidism-continue Synthroid. DVT prophylaxis- coumadin
--- NOTE | 2021-09-15 09:33 | PN.HOSP_ITS ---
Documented by User: Tammy Rosa NP, [facility]IECE HANDLER-C 09/15/21 09:43 Subjective Subjective Patient seen and examined. Reports he still has chest pain in the center of his chest although now feels sore as opposed to significant pain. Denies shortness of breath, nausea or other associated symptoms. Objective Data Objective Data Vital Signs: Vital Signs Temp Pulse Resp BP Pulse Ox 98.4 F 66 18 128/90 H 97 09/15/21 04:00 09/15/21 07:00 09/15/21 07:00 09/15/21 07:00 09/15/21 07:00 Oxygen Flow Rate (L/min) 2 Oxygen Delivery Method Room Air Weight: 157 lb 13.616 oz Body Mass Index (BMI) 27.6 Intake & Output: Intake and Output for Last 24 Hours 09/13/21 09/14/21 09/15/21 23:59 23:59 23:59 Intake Total 300 / 500 1200 / 1200 Output Total 700 / 1450 1350 / 1350 Balance -400 / -950 -150 / -150 Lab / Micro Data Result Diagrams: 09/15/21 04:15 09/15/21 04:15 Labs: Laboratory Results - last 24 hr 09/14/21 16:30: WBC 10.2, RBC 4.90, Hgb 14.4, Hct 43.4, MCV 88.6, MCH 29.4, MCHC 33.2, RDW Std Deviation 54.4 H, RDW Coeff of Eddie 17.0 H, Plt Count 419, MPV 9.1, Immature Gran % (Auto) 0.400, Neut % (Auto) 55.4, Lymph % (Auto) 28.6, [place] % (Auto) 11.7 H, Eos % (Auto) 3.3, Baso % (Auto) 0.6, Absolute Neuts (auto) 5.6, Absolute Lymphs (auto) 2.91, Nucleated RBC % 0 09/14/21 16:30: PT 18.0 H, INR 1.5, APTT 28.5 09/14/21 16:30: Sodium 139, Potassium 4.2, Chloride 108 H, Carbon Dioxide 22.0, Anion Gap 9, BUN 22 H, Creatinine 1.20, Estim Creat Clear Calc 43.17, Est GFR (MDRD) Af Amer 75, Est GFR (MDRD) Non-Af 62, BUN/Creatinine Ratio 18.3, Glucose 128 H, Calcium 9.6, Troponin I High Sens 8 09/14/21 18:35: WBC 14.2 H, RBC 4.64, Hgb 13.7, Hct 41.4, MCV 89.2, MCH 29.5, MCHC 33.1, RDW Std Deviation 55.3 H, RDW Coeff of Eddie 17.0 H, Plt Count 348, MPV 9.3 09/14/21 19:40: Troponin I High Sens 7863 H* 09/14/21 22:00: Troponin I [place] Sens 54710 H* 09/15/21 02:05: Troponin I High Sens [id number] H* 09/15/21 04:15: WBC 11.0, RBC 4.64, Hgb 13.6, Hct 40.9, MCV 88.1, MCH 29.3, MCHC 33.3, RDW Std Deviation 54.9 H, RDW Coeff of Eddie 17.2 H, Plt Count 327, MPV 9.1 09/15/21 04:15: Sodium 134 L, Potassium 3.7, Chloride 99, Carbon Dioxide 26.0, Anion Gap 9, BUN 17, Creatinine 0.88, Estim Creat Clear Calc 58.86, Est GFR (MDRD) Af Amer 107, Est GFR (MDRD) Non-Af 89, BUN/Creatinine Ratio 19.3, Glucose 101, Calcium 8.5, Total Bilirubin 1.50 H, AST 209 H, ALT 46, Alkaline Phosphatase 72, Total Protein 7.6, Albumin 3.8, Globulin 3.8, Albumin/Globulin Ratio 1.0 09/15/21 04:15: PT Cancelled, INR Cancelled 09/15/21 04:50: PT 17.1 H, INR 1.4 09/15/21 08:30: Troponin I High Sens [id number] H* Radiography Diagnostic Testing: Radiology Impression Chest X-Ray 09/14/21 16:49 IMPRESSION: Nonacute portable x-ray examination of the chest. Electronically Signed: Royer Alvarez MD (Brooks) at 17:11 EDT Reading Location ID and State: [facility] / [place] , Service support , Rhythm Strip Rhythm Strip: Sinus Rhythm Rate: 90 Ectopy: PVC(s) Physical Exam Const alert, oriented x3 and no apparent distress Orientation / Consciousness: awake, oriented to person, oriented to place and oriented to time HEENT normocephalic and moist oral mucous membranes Eyes PERRL, EOMs intact bilaterally and conjunctivae normal Neck no lymphadenopathy Resp normal respiratory effort and clear to auscultation bilaterally Cardio regular rate, regular rhythm and no murmurs Peripheral Pulses: pulses 2+ throughout GI normal to inspection, nondistended, normoactive bowel sounds, non-tender and non-distended Extremity normal to inspection Skin no rashes or lesions noted Lesions: no lesions Rashes: no rashes Trauma: no lacerations or abrasions Neuro CN's II-XII intact bilaterally, no focal motor deficits, no sensory deficits noted and deep tendon reflexes 2+ bilaterally Psych mental status grossly normal and affect normal Assessment & Plan Assessment/Plan (1) ST elevation (STEMI) myocardial infarction: PLAN: 1. STEMI-cardiology consulted. Underwent PCI of occluded proximal LAD followed by placement of drug-eluting stent. On Integrilin infusion. Patient also noted to have OM1 lesion that will likely require additional PCI, plan for elective cath in 2 to 3 weeks. Echo in a.m. Continue Brilinta, aspirin, carvedilol. 2. Nonsustained V. tach-amnio bolus in ER. PVCs on telemetry, no further episodes of NSVT. 3. CAD-stenting to LAD and balloon angioplasty to the ostium of the diagonal 11/2018. PCI to proximal LAD as noted above. On aspirin, statin, carvedilol. Brilinta added. 4. Nonrheumatic aortic valve stenosis-echocardiogram June 2021 demonstrated an EF of 65%, moderate to severe aortic valve stenosis. 5. Paroxysmal atrial fibrillation-on flecainide, Coumadin. 6. Hypertension-stable, continue amlodipine, carvedilol. 7. Hyperlipidemia-continue statin. 8. Obstructive sleep apnea-continue home PAP regimen. 9. BPH-continue finasteride, history of TURP. 10. Hypothyroidism-continue Synthroid. DVT prophylaxis- Coumadin This patient was seen by [facility] under the supervision of Dr. Orellana. Time spent examining patient, reviewing data and subsequent management of care: 12 minutes Documented by User: Dr. Boston Orellana MD 09/15/21 10:27 Subjective Subjective Follow-up for STEMI Patient is still has chest tightness left-sided, 2-4/10 intensity, intermittent. Patient also had NSVT yesterday. No shortness of breath. Objective Data Lab / Micro Data Result Diagrams: 09/15/21 04:15 09/15/21 04:15 Physical Exam Narrative General: Alert, Oriented x3, Cooperative HEENT: Atraumatic, PERRLA, EOMI, Normocephalic Oral: No Gingival or Mucosal Lesions/ Ulcerations Neck: Supple, No JVD, Negative Carotid Bruits Lungs: Air entry diminished in bilateral lung bases. No crepitation/rhonchi Cardiovascular: Sinus rhythm with PVCs, Normal S1, Normal S2, ejection systolic murmur over right second ICS. Abdomen: Bowel Sounds Present, Soft, Non Tender, Non-Distended : No renal angle tenderness. No suprapubic tenderness. Extremities: No edema, Capillary Refill Less than 3 Seconds Skin: No rashes, No breakdown Musculoskeletal: No Tenderness to Palpation of Joints or Extremities Neurological: Cranial nerves II-XII grossly intact, DTR 2+/4 and Symmetrical, Neuro grossly intact Psych/Mental Status: Normal Affect, Appropriate Assessment & Plan Assessment/Plan (1) ST elevation (STEMI) myocardial infarction: PLAN: This patient was seen in conjunction with SHORT PIECE HANDLERTammy. I have independently interviewed and examined the patient and reviewed pertinent history, examination findings, laboratory and plan of management. I have reviewed the note and agree with the documented findings with the few additional points. In brief, patient is admitted for chest pain while exertion. In the ED, diagnosis was made STEMI or minor ST elevation in the septal region V1 and V2. Patient was taken to [facility]. The patient had successful PCI of the culprit occluded proximal LAD stent with dilatation and JOSEFINA. Large OM1 with 75% re stenosis in the midportion. RCA large dominant with no significant obstruction. Patient is still having mild chest tightness. He needs to continue monitor. On aspirin, Brilinta and carvedilol. 2. Patient also had nonsustained V. tach's about 5 to 6 seconds in ED. Patient had 150 mill Movymia syndrome in ED. Patient still has PVCs although frequency has decreased overnight. 3. Coronary artery status post LAD stent and balloon angioplasty clinic diagonal ostium in November [address] Bermudez. 4. Nonrheumatic aortic valve stenosis as per echo 10/11/2021, EF 75% moderate to severe . 5. Multiple other comorbidities include paroxysmal A. fib on flecainide and warfarin, hypertension, dyslipidemia, SERGO on CPAP, BPH status post TURP, hypothyroidism. Multiple comorbidities complicates the present care and expect difficult and delay recovery I have discussed my assessment with SHORT PIECE HANDLERTammy and orders have been reviewed. Total time of the visit includes total time spent in counseling or coordination of care, (more than 50% of the total time, spent in obtaining medical information from nurses and other ancillary care providers,explaining to the patient about labs, imaging, diagnosis and management), discussion with identity management consultant, review of labs and imaging is 30 minutes; I spent 30 minutes, more than half time and PA spent 15 minutes Charges/Coding Visit Charges Inpatient E&M: 88013 Subs Hosp L3
--- NOTE | 2021-09-15 10:00 | EKG12_ITS ---
Test Reason : POST-CATH STEMI Blood Pressure : / mmHG Vent. Rate : 079 BPM Atrial Rate : 079 BPM P-R Int : 208 ms QRS Dur : 116 ms QT Int : 402 ms P-R-T Axes : 044 -41 014 degrees QTc Int : 460 ms Sinus rhythm with 1st degree A-V block Left axis deviation Borderline Prolonged QT , may be secondary to QRS abnormality Septal PR, age undetermined Confirmed by MARGIE SANCHEZ, FREEMAN ([id number]), book editor OMAR BAEZ ([id number]) on 09/18/2021 10:08:13 AM Referred By: Toro Guillermo Confirmed By:FREEMAN HANSON MD
[2021-09-15] MEDS: Aspirin E.C. 81 MG Tablet PO (11:05)
[2021-09-15] MEDS: amLODIPine 5 MG Tablet PO (11:06)
[2021-09-15] MEDS: Finasteride 5 MG Tablet PO (11:08)
[2021-09-15] MEDS: Flecainide 100 MG Tablet 50 MG PO ×2 (11:08→20:16)
[2021-09-15] MEDS: NON-FORMULARY TOPICAL ×2 (16:00→20:18)
--- NOTE | 2021-09-15 16:21 | CON.PCM.CA_ITS ---
Assessment & Plan Assessment/Plan (1) Essential hypertension: (2) Atherosclerotic heart disease of [place] coronary artery without angina pectoris: QUALIFIERS: [place] vs. transplanted heart: [place] heart Qualified Code(s): I25.10 - Atherosclerotic heart disease of [place] coronary artery without angina pectoris (3) Hyperlipidemia: QUALIFIERS: Hyperlipidemia type: pure hypercholesterolemia Qualified Code(s): E78.00 - Pure hypercholesterolemia, unspecified; E78.0 - Pure hypercholesterolemia (4) Paroxysmal A-fib: (5) ST elevation (STEMI) myocardial infarction: PLAN: 75-year-old patient presented with symptoms of severe retrosternal chest pain had a history of CAD with prior PCI and stent by Dr. Bermudez in 2019 using drug-eluting stent to the mid LAD 2.5 mm in diameter Patient had paroxysmal defibrillation and was on Coumadin INR subtherapeutic 1.5 on admission Patient was taken as an emergency to the [facility] with occluded proximal LAD with successful PCI and stent using a drug-eluting stent 3 x 32 mm Remained stable clinically no further episode of chest pain with resolution of ST-T change Cardiac care plan recommendations; 1. I reviewed his current medication will continue on DAPT Brilinta 90 mg twice daily in addition to low-dose aspirin 81 mg 2. Patient had paroxysmal atrial fibrillation and I will continue on Coumadin with INR target 2?3 3. Echocardiogram tomorrow Also reviewed the current medication he is on beta-shawn carvedilol statin and flecainide and maintaining normal sinus rhythm. 4. Patient to follow-up with his primary safety investigator/cause analyst Dr. Bravo HPI Consult Data Date of Consult: 09/15/21 HPI Narrative Reason for Consultation: STEMI/cad/ pCI of LAD/instent occlusion/Pafib HPI Narrative: HANG KEENAN, is a 75 M who presents [facility] Medical History (Reviewed 09/14/21 @ 17:03 by Tmamy Rosa AMBULATORY SERVICE REPRESENTATIVE, AMBULATORY SERVICE REPRESENTATIVE-C) Arthritis Atelectasis Atherosclerotic heart disease of [place] coronary artery without angina pectoris Cancer Cardiology follow-up encounter Carotid dissection, 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) Chest pain Chest pain Chest tightness Easy bruising Essential hypertension Excessive bleeding Hearing loss of left ear Hematuria High cholesterol History of BPH History of echocardiogram History of kidney stones History of pericarditis (~04/2017) History of stress test Hyperlipidemia Hypothyroidism Nonrheumatic aortic (valve) stenosis Nonrheumatic mitral valve regurgitation SERGO (obstructive sleep apnea) Paroxysmal A-fib Right inguinal hernia Stented coronary artery (11/23/18) Thymoma, malignant Wears glasses Wears partial dentures Home Medications levothyroxine 75 mcg PO DAILY 01/07/17 [History Last Taken 07/10/21] nitroglycerin 0.4 mg sublingual tablet 0.4 mg SUBLINGUAL Q5-15M PRN #25 tab 12/21/18 [Rx Last Taken Unknown] lysine 500 mg tablet 500 mg PO DAILY 06/09/19 [History Last Taken 11/19/19 08:00] aspirin 81 mg PO DAILY 11/19/19 [History Last Taken 07/03/21] finasteride 5 mg PO DAILY #90 tab 11/21/19 [Rx Last Taken Unknown] warfarin 7.5 mg tablet 7.5 mg PO QODAY tab 01/19/20 [History Last Taken 07/05/21] carvedilol 6.25 mg tablet 6.25 mg PO BID tab 06/27/21 [History Last Taken 07/10] cholecalciferol (vitamin D3) 25 mcg (1,000 unit) tablet 25 mcg PO DAILY 06/27/21 [History Last Taken Unknown] cyanocobalamin (vitamin B-12) 1,000 mcg tablet 1,000 mcg PO DAILY 06/27/21 [History Last Taken Unknown] acetaminophen 1,000 mg PO TID 14 Days #84 tab 07/12/21 [Rx Last Taken Unknown] amlodipine 5 mg tablet 5 mg PO DAILY tab 07/31/21 [History Last Taken Unknown] multivitamin 1 tab PO DAILY 07/31/21 [History Last Taken Unknown] rosuvastatin 5 mg tablet 5 mg PO DAILY tab 07/31/21 [History Last Taken Unknown] flecainide 50 mg tablet 50 mg PO BID #180 tab 08/05/21 [Rx Last Taken Unknown] warfarin 5 mg PO QODAY 09/14/21 [History Last Taken Unknown] Allergy/AdvReac Type Severity Reaction Status Date / Time cefuroxime Allergy Intermediate Rash Verified 09/14/21 16:34 rosuvastatin [From Crestor] AdvReac Severe severe Verified 09/14/21 16:34 myalgias lisinopril AdvReac Intermediate didn't Verified 09/14/21 16:34 control bp well, labile cephalexin AdvReac Pain in Verified 09/14/21 16:34 joints levofloxacin [From Levaquin] AdvReac achiness Verified 09/14/21 16:34 Family History Father Heart disease Hypertension Mother CVA (cerebral vascular accident) Brother Cancer Hypertension Sister Cancer Hypertension Surgical History H/O right and left heart catheterization (11/12/18) History of arthroscopy of left knee History of cardiac catheterization History of hernia repair History of partial knee replacement History of thymectomy (04/23/17) History of tonsillectomy History of transurethral resection of prostate Presence of coronary angioplasty implant and graft (~11/23/18) Social History Smoking Status: Never smoker alcohol intake: never substance use type: does not use caffeine: No ROS ROS Narrative Presented with symptoms of retrosternal severe chest pain 10 of 10 Evidently he was working in his yard and developed symptoms of chest pain called his son who drove him over to the ER where EKG was obtained there was no ST elevation noted in the EKG however he had severe chest pain and had a PCI and stent of the LAD [place] [address] Bermudez and based on that he was taken immediately to the [facility] with a PCI and stent of occluded LAD stent. He see his primary safety investigator/cause analyst Dr. Bravo and had a history of proximal atrial fibrillation and was on low-dose aspirin in addition to Coumadin. Rest of the review of systems unremarkable Physical Exam Narrative Seen and evaluated today at bedside along with the nursing staff and at bedside Alert orientated x3 not in acute distress Does not have any active symptoms or chest pain budget director showed underlying normal sinus rhythm Blood pressure stable Cardiac exam S1-S2 regular Chest exam is clear to auscultation bilateral Abdomen soft Examination lower extremity no clubbing no cyanosis no extremity edema. Risk Stratification Risk Stratification Applicable: Yes Age >/= 65: Yes >/= 3 CAD Risk Factors (HTN, HLD, DM, family hx of CAD, or current smoker): Yes Aspirin Use in the Past 7 Days: Yes Severe Angina (>/= episodes in 24 hours): Yes EKG ST Changes >/= 0.5mm: Yes Positive Cardiac Marker: Yes NATHALIE Risk Stratification Score: 6 NATHALIE % Risk: 41% Risk Objective Data Vital Signs: Vital Signs Temp Pulse Resp BP Pulse Ox 97.7 F L 72 13 114/73 93 09/15/21 12:00 09/15/21 14:00 09/15/21 14:00 09/15/21 14:00 09/15/21 14:37 Oxygen Flow Rate (L/min) 2 Oxygen Delivery Method Room Air Weight: 157 lb 13.616 oz Body Mass Index (BMI) 27.6 Intake & Output: Intake and Output for Last 24 Hours 09/13/21 09/14/21 09/15/21 23:59 23:59 23:59 Intake Total 300 / 500 1620.00 / 1620.00 Output Total 700 / 1450 1550 / 1550 Balance -400 / -950 70.00 / 70.00 Lab / Micro Data Result Diagrams: 09/15/21 04:15 09/15/21 04:15 Labs: Laboratory Results - last 24 hr 09/14/21 16:30: WBC 10.2, RBC 4.90, Hgb 14.4, Hct 43.4, MCV 88.6, MCH 29.4, MCHC 33.2, RDW Std Deviation 54.4 H, RDW Coeff of Eddie 17.0 H, Plt Count 419, MPV 9.1, Immature Gran % (Auto) 0.400, Neut % (Auto) 55.4, Lymph % (Auto) 28.6, [place] % (Auto) 11.7 H, Eos % (Auto) 3.3, Baso % (Auto) 0.6, Absolute Neuts (auto) 5.6, Absolute Lymphs (auto) 2.91, Nucleated RBC % 0 09/14/21 16:30: PT 18.0 H, INR 1.5, APTT 28.5 09/14/21 16:30: Sodium 139, Potassium 4.2, Chloride 108 H, Carbon Dioxide 22.0, Anion Gap 9, BUN 22 H, Creatinine 1.20, Estim Creat Clear Calc 43.17, Est GFR (MDRD) Af Amer 75, Est GFR (MDRD) Non-Af 62, BUN/Creatinine Ratio 18.3, Glucose 128 H, Calcium 9.6, Troponin I High Sens 8 09/14/21 18:35: WBC 14.2 H, RBC 4.64, Hgb 13.7, Hct 41.4, MCV 89.2, MCH 29.5, MCHC 33.1, RDW Std Deviation 55.3 H, RDW Coeff of Eddie 17.0 H, Plt Count 348, MPV 9.3 09/14/21 19:40: Troponin I High Sens [id number] H* 09/14/21 22:00: Troponin I High Sens [id number] H* 09/15/21 02:05: Troponin I [place] Sens [id number] H* 09/15/21 04:15: WBC 11.0, RBC 4.64, Hgb 13.6, Hct 40.9, MCV 88.1, MCH 29.3, MCHC 33.3, RDW Std Deviation 54.9 H, RDW Coeff of Eddie 17.2 H, Plt Count 327, MPV 9.1 09/15/21 04:15: Sodium 134 L, Potassium 3.7, Chloride 99, Carbon Dioxide 26.0, Anion Gap 9, BUN 17, Creatinine 0.88, Estim Creat Clear Calc 58.86, Est GFR (MDRD) Af Amer 107, Est GFR (MDRD) Non-Af 89, BUN/Creatinine Ratio 19.3, Glucose 101, Calcium 8.5, Total Bilirubin 1.50 H, AST 209 H, ALT 46, Alkaline Phosphatase 72, Total Protein 7.6, Albumin 3.8, Globulin 3.8, Albumin/Globulin Ratio 1.0 09/15/21 04:15: PT Cancelled, INR Cancelled 09/15/21 04:50: PT 17.1 H, INR 1.4 09/15/21 08:30: Troponin I High Sens [id number] H* Rhythm Strip Rhythm Strip: Sinus Rhythm Rate: 90 Ectopy: PVC(s) Cardiology Labs/Tests 09/14/21 16:30: WBC 10.2, RBC 4.90, Hgb 14.4, Hct 43.4, MCV 88.6, MCH 29.4, MCHC 33.2, Plt Count 419, MPV 9.1, Immature Gran % (Auto) 0.400, Neut % (Auto) 55.4, Lymph % (Auto) 28.6, [place] % (Auto) 11.7 H, Eos % (Auto) 3.3, Baso % (Auto) 0.6, Absolute Neuts (auto) 5.6, Nucleated RBC % 0 09/14/21 16:30: PT 18.0 H, INR 1.5, APTT 28.5 09/14/21 16:30: Sodium 139, Potassium 4.2, Chloride 108 H, Carbon Dioxide 22.0, Anion Gap 9, BUN 22 H, Creatinine 1.20, Est GFR (MDRD) Af Amer 75, Est GFR (MDRD) Non-Af 62, BUN/Creatinine Ratio 18.3, Glucose 128 H, Calcium 9.6 09/14/21 18:35: WBC 14.2 H, RBC 4.64, Hgb 13.7, Hct 41.4, MCV 89.2, MCH 29.5, MCHC 33.1, Plt Count 348, MPV 9.3 09/15/21 04:15: WBC 11.0, RBC 4.64, Hgb 13.6, Hct 40.9, MCV 88.1, MCH 29.3, MCHC 33.3, Plt Count 327, MPV 9.1 09/15/21 04:15: Sodium 134 L, Potassium 3.7, Chloride 99, Carbon Dioxide 26.0, Anion Gap 9, BUN 17, Creatinine 0.88, Est GFR (MDRD) Af Amer 107, Est GFR (MDRD) Non-Af 89, BUN/Creatinine Ratio 19.3, Glucose 101, Calcium 8.5, Total Bilirubin 1.50 H 09/15/21 04:15: PT Cancelled, INR Cancelled 09/15/21 04:50: PT 17.1 H, INR 1.4 Rhythm: Normal sinus rhythm with episode of SVT EKG: Consistent with septal infarction ECHO: Stress Test: Cardiac Cath: Left main normal, occluded proximal LAD with successful PCI and stent With drug-eluting stent 3 x 32 mm Synergy, postdilated with NC balloon 3 mm. 80% stenosis of the proximal large OM1 RCA is dominant with no significant atherosclerosis Radiography Diagnostic Testing: Radiology Impression Chest X-Ray 09/14/21 16:49 IMPRESSION: Nonacute portable x-ray examination of the chest. Electronically Signed: Royer Alvarez MD (Brooks) at 17:11 EDT ,
[2021-09-15] MEDS: Acetaminophen 325 MG Tablet 650 MG PO (17:42)
--- NOTE | 2021-09-15 18:15 | EKG12_ITS ---
Test Reason : POST PCI Blood Pressure : / mmHG Vent. Rate : 062 BPM Atrial Rate : 062 BPM P-R Int : 186 ms QRS Dur : 106 ms QT Int : 448 ms P-R-T Axes : 042 -20 007 degrees QTc Int : 454 ms Normal sinus rhythm with sinus arrhythmia Septal infarct , age undetermined Abnormal ECG Confirmed by MARGIE SANCHEZ, FREEMAN ([id number]), digital editor OMAR BAEZ ([id number]) on 09/18/2021 10:07:45 AM Referred By: Toro Guillermo Confirmed By:FREEMAN HANSON MD
[2021-09-15] MEDS: Atorvastatin Calcium 40 MG Tablet PO (20:16)
[2021-09-15] MEDS: Carvedilol 3.125 MG TABLET PO (20:16)
[2021-09-15] MEDS: TICAGRELOR 90 MG TABLET PO (20:18)
[2021-09-16] VITALS (17 sets, daily range): BP systolic 99–147; BP diastolic 65–94; PULSE 66–95; RESP 12–23; TEMP 36.6–37.2; O2SAT 86–96
[2021-09-16 03:53] LABS: Hemoglobin 13.9 g/dL (13.0-16.5); Mean Corp Hgb Conc 33.9 g/dL (32-36); Mean Corpuscular Hgb 29.9 pg (27.0-32.0); Mean Corpuscular Volume 88.2 fL (80-94); Mean Platelet Vol. 9.2 fl (6.2-12.0); Platelet Count 326 K/mm3 (150-450); RBC Distribution Width CV 17.4 % (11.6-14.6); RBC Distribution Width SD 55.8 fl (35.1-43.9); Red Blood Count 4.65 M/mm3 (4.6-6.2); White Blood Count 8.3 K/mm3 (4.4-11.0)
[2021-09-16 04:01] LABS: International Normalized Ratio 1.5; Prothrombin Time (Protime)PT. 17.4 SECONDS (11.7-14.9)
[2021-09-16 04:14] LABS: Anion Gap 6 (5-15); BUN 22 mg/dL (7-18); BUN/Creat Ratio 22.2 RATIO (10-20); Calcium,Total 8.7 mg/dL (8.5-10.1); Chloride 102 mmol/L (98-107); Creatinine, Serum 0.99 mg/dL (0.70-1.30); EST Glomerular Filtration Rate 78 mL/min (>60); Est Glom Filt Rate - Afr Amer 94 mL/min (>60); Estimated Creatinine Clearance 52.32 ml/min; Glucose 108 mg/dL (74-106); Potassium 3.9 mmol/L (3.5-5.1); Sodium Level 136 mmol/L (136-145)
[2021-09-16] MEDS: Levothyroxine 75 MCG Tablet PO (04:52)
[2021-09-16] MEDS: Acetaminophen 325 MG Tablet 650 MG PO (04:55)
--- NOTE | 2021-09-16 07:27 | CRPHASE1 ---
Patient Communication Former Patient:: Phase II PHII Cardiac Rehab Discussed with Patient:: Yes Guide to Cardiac Rehab Given to Patient:: Yes Cardiac Rehab Facility Choice List Given to Patient:: Yes Choice Program [facility] CR PHII:: Communication Given to CR I[employer] Systems Programmer:: Toro Guillermo Refer Phase II Cardiac Rehab:: Yes Sessions:: 36 sessions - 3 days/wk, 12 weeks Cardiac Rehabilitation Info Cardiac Rehabilitation Program Information: Cardiac Rehabilitation is important for patients like you who are recovering from a heart problem. Cardiac rehabilitation programs are recognized as integral to the continued care of the patient with coronary heart disease. The cardiac rehabilitation program is designed to optimize a patient's physical, psychological, and social functioning. Health child care group leader work in cardiac rehabilitation programs and assist you with getting the treatments you need to get stronger and healthier - like exercise, healthy eating habits, and medications. Cardiac rehabilitation has been show to help people with heart problems live longer and have better life enjoyment than people who do not go to cardiac rehabilitation. Please contact the Cardiac Rehabilitation Program at [facility] at in two weeks if you have not heard from them.
--- NOTE | 2021-09-16 07:28 | CRPH1.INSTRU ---
General Education CAD and cardiac anatomy and function:: Patient communicates acknowledgment Explanation of diagnoses and procedures:: Patient communicates acknowledgment Sign/Symptoms of [place]:: Patient communicates acknowledgment Antiplatelet therapy: Patient communicates acknowledgment Proper use of NTG-SL: Patient communicates acknowledgment Emergency procedures and activation of EMS: Patient communicates acknowledgment Compliance of all prescribed medications: Patient communicates acknowledgment Dyslipidemia Patient Dyslipidemia Risk Factors Are:: Total Cholesterol, Triglycerides, HDL, LDL Recommendations Include:: Lipid profile not available, Therapeutic Lifestyle Change dietary guidelines Dyslipidemia Response Code:: Patient communicates acknowledgment Overweight/Obesity Patient Overweight/Obesity Risk Factors Are:: BMI Normal [24-29 & > 65 years old] Recommendations Include:: Weight loss of 5-10%, Reduced calorie diet, Exercise 5-7 times/week Overweight/Obesity:: Patient communicates acknowledgment, Family communicates acknowledgment Hypertension Recommendations Include:: Maintain BP <130/85, Decrease/maintain normal body weight Hypertension:: Patient communicates acknowledgment Heart Disease Patient Heart Disease Risk Factors Are:: Previous cardiac event Recommendations Include:: Educated family members of their risk, Educated family members of importance of prevention of heart disease Heart Disease Response Code:: Patient communicates acknowledgment Diabetes Patient Diabetes Risk Factors Are:: No documented hx of diabetes Sedentary Patient Sedentary Risk Factors Are:: Lack of regular exercise Recommendations Include:: Aerobic exercise 5-7 times/week for 20-30 minutes continuously, Benefits of regular exercise, Discussed home walking program, Monitored Outpatient Cardiac Rehab Sedentary Response Code:: Patient communicates acknowledgment Stress Recommendations Include:: Identification of stressors, and assessment of coping skills Stress Response Code:: Patient communicates acknowledgment
[2021-09-16] MEDS: Aspirin E.C. 81 MG Tablet PO (09:05)
--- NOTE | 2021-09-16 10:05 | NURSING ---
Dr. Bravo in to see pt. at [phone]
[2021-09-16] MEDS: Lidocaine 5% Patch 2 PATCH TOPICAL (10:27)
[2021-09-16] MEDS: amLODIPine 5 MG Tablet PO (10:28)
[2021-09-16] MEDS: Finasteride 5 MG Tablet PO (10:28)
[2021-09-16] MEDS: TICAGRELOR 90 MG TABLET PO (10:28)
[2021-09-16] MEDS: NON-FORMULARY TOPICAL (10:29)
[2021-09-16] MEDS: Carvedilol 3.125 MG TABLET PO (10:29)
--- NOTE | 2021-09-16 10:29 | PN.CARD_ITS ---
Subjective Subjective Patient seen and evaluated today at bedside He is alert orientated No event from last night Symptoms of chest pain resolved. Objective Data Vital Signs: Vital Signs Temp Pulse Resp BP Pulse Ox 98.9 F 87 17 116/80 94 09/16/21 08:00 09/16/21 09:00 09/16/21 09:00 09/16/21 09:00 09/16/21 09:20 Oxygen Flow Rate (L/min) 2 Oxygen Delivery Method Room Air Weight: 160 lb 7.944 oz Body Mass Index (BMI) 27.6 Intake & Output: Intake and Output for Last 24 Hours 09/14/21 09/15/21 09/16/21 23:59 23:59 23:59 Intake Total 300 / 500 1890.00 / 1890.00 Output Total 700 / 1450 2170 / 2170 650 / 650 Balance -400 / -950 -280.00 / -280.00 -650 / -650 Lab / Micro Data Result Diagrams: 09/16/21 03:40 09/16/21 03:40 Labs: Laboratory Results - last 24 hr 09/16/21 03:40: WBC 8.3, RBC 4.65, Hgb 13.9, Hct 41.0, MCV 88.2, MCH 29.9, MCHC 33.9, RDW Std Deviation 55.8 H, RDW Coeff of Eddie 17.4 H, Plt Count 326, MPV 9.2 09/16/21 03:40: PT 17.4 H, INR 1.5 09/16/21 03:40: Sodium 136, Potassium 3.9, Chloride 102, Carbon Dioxide 28.0, Anion Gap 6, BUN 22 H, Creatinine 0.99, Estim Creat Clear Calc 52.32, Est GFR (MDRD) Af Amer 94, Est GFR (MDRD) Non-Af 78, BUN/Creatinine Ratio 22.2 H, Glucose 108 H, Calcium 8.7 Rhythm Strip Rhythm Strip: Sinus Rhythm Rate: 90 Ectopy: PVC(s) Cardiology Labs/Tests 09/16/21 03:40: WBC 8.3, RBC 4.65, Hgb 13.9, Hct 41.0, MCV 88.2, MCH 29.9, MCHC 33.9, Plt Count 326, MPV 9.2 09/16/21 03:40: PT 17.4 H, INR 1.5 09/16/21 03:40: Sodium 136, Potassium 3.9, Chloride 102, Carbon Dioxide 28.0, Anion Gap 6, BUN 22 H, Creatinine 0.99, Est GFR (MDRD) Af Amer 94, Est GFR (MDRD) Non-Af 78, BUN/Creatinine Ratio 22.2 H, Glucose 108 H, Calcium 8.7 Rhythm: EKG: ECHO: Stress Test: Cardiac Cath: PCI: CT Surgery: Holter monitor: EPS: PPM: CXR: Chest CT Scan: Physical Exam Narrative Review of design engineer marine equipment showed normal sinus Cardiovascular exam S1-S2 regular He had ejection systolic murmur heard in the aortic valve area/aortic stenosis Chest exam clear to auscultation bilateral Examination abdomen soft Examination lower extremity no clubbing no cyanosis no lower extremity edema Assessment & Plan Assessment/Plan (1) SVT (supraventricular tachycardia): (2) Hypotension: (3) Essential hypertension: (4) Nonrheumatic mitral valve regurgitation: (5) Nonrheumatic aortic (valve) stenosis: (6) Hyperlipidemia: QUALIFIERS: Hyperlipidemia type: pure hypercholesterolemia Qualified Code(s): E78.00 - Pure hypercholesterolemia, unspecified; E78.0 - Pure hypercholesterolemia (7) Paroxysmal A-fib: (8) SERGO (obstructive sleep apnea): (9) ST elevation (STEMI) myocardial infarction: PLAN: Patient seen and evaluated today at bedside in ICU Post PCI of LAD for NSTEMI Stable clinically securities compliance examiner showed normal sinus Cardiac exam S1-S2 normal Had systolic murmur heard in the aortic valve area consistent with aortic stenosis Cardiac care plan recommendations; 1. Discontinued flecainide due to recent ME 2. Echocardiogram to evaluate LV function as well to assess severity of the aortic stenosis 3. Continue on dual antiplatelet with Brilinta/aspirin 4. We will continue on Coumadin with a target INR 2?3 5. Patient has a significant atherosclerosis of large OM1 proximal of around 80% This can be done as an outpatient 1 to 2 weeks 6. His primary electrical appliance mechanic Dr. Bravo will review his echocardiogram and he will discuss further plan as an outpatient setting. The rest of the cardiac medication. From cardiac standpoint patient is stable clinically he can be discharged
--- NOTE | 2021-09-16 10:50 | CASEMGMT ---
RN CM Face to Face with patient for initial transition planning/care coordination assessment. RN CM introduced self and role at [facility]. Patient lying in bed, alert and oriented, at bedside. Patient willing to participate in assessment and is able to answer all questions appropriately. Care providers, pharmacy, and demographics verified. Patient wishes to discharge home, denies need for home health at this time. Patient states he has no further needs or concerns at this time. CM to follow for discharge planning needs that may arise. PCP: Ashli Specialists: Shelly dimension warehouse supervisor; nayely Gonzales Preferred Pharmacy: [facility] retail Insurance: [employer], [employer] Prescription Benefit: yes Living Will/HPOA: yes, Trina Schaeffer LNOK: , son Living Arrangements: Patient lives with in a Transportation: self, DME/HHC: Patient has cane and walker at home. No previous HHC or SNF. Disposition Plan: Patient to discharge home with family support and follow-up plans in place. Lela HERNÁNDEZ, RN, CM
--- NOTE | 2021-09-16 10:54 | PCM.DC ---
Discharge Instructions Diet Discharge Diet: Low fat / Low cholesterol and 2000 mg Sodium Diet Activity Additional Activity Instructions:: follow post op cath/activity instructions Dressing / Incision Call your doctor if your incision/area has: Continuous Slow Oozing, Sudden Increased Bleeding, Increased Pain/ Swelling, Increased Redness, Foul Smelling Discharge and Swelling at the incision site Call your doctor if you observe: Shortness of breath, Dizziness and Chest pain Follow Up Care Test Results: Test results from this visit will be discussed in further detail at your follow-up appointment, if applicable. Discharge Plan Admission Admit Date/Time: 09/14/21 18:33 Primary Reason for Your Visit: STEMI Attending Provider: Debra Ford Primary Care Provider: Tapan Cornelius Consulting Providers: Toro Guillermo Instructions Patient Instructions: Symptoms of a Heart Attack, Angiography Risks Complications, Taking Medicines for Your Heart, Heart Attack: Back at Home, Living Well After a Heart Attack Discharge Orders/Prescriptions Prescriptions: New Brilinta 90 mg Tablet 90 mg PO BID 30 Days Qty: 60 RF: 0 Continued lysine 500 mg tablet 500 mg PO DAILY RF: 0 nitroglycerin 0.4 mg tablet, sublingual 0.4 mg SUBLINGUAL Q5-15M PRN (Reason: chest pain) Qty: 25 RF: 3 warfarin 7.5 mg tablet 7.5 mg PO QODAY RF: 0 carvedilol 6.25 mg tablet 6.25 mg PO BID RF: 0 amlodipine 5 mg tablet 5 mg PO DAILY RF: 0 multivitamin Tablet 1 tab PO DAILY RF: 0 cholecalciferol (vitamin D3) 25 mcg (1,000 unit) tablet 25 mcg PO DAILY RF: 0 cyanocobalamin (vitamin B-12) [Vitamin B-12] 1,000 mcg tablet 1,000 mcg PO DAILY RF: 0 levothyroxine 75 MCG tablet 75 mcg PO DAILY RF: 0 aspirin 81 MG tablet,delayed release (DR/EC) 81 mg PO DAILY RF: 0 finasteride 5 MG tablet 5 mg PO DAILY Qty: 90 RF: 3 acetaminophen 500 mg Tablet 1,000 mg PO TID 14 Days Qty: 84 RF: 0 warfarin 5 mg Tablet 5 mg PO QODAY RF: 0 rosuvastatin 5 mg tablet 5 mg PO DAILY RF: 0 Discontinued flecainide 50 mg tablet 50 mg PO BID Qty: 180 RF: 3 Referrals / Follow Up: Shamir Bravo MD [STAFF PHYSICIAN] - 09/30/21 10:30 am Tapan Cornelius MD [Primary Care Provider] - 09/25/21 8:40 am (Appointment made for 09/25 at 0840am w/ Dr. Stewart. Dr. Cornelius had not availability for a couple weeks. ) Disposition Disposition (needs filled in before D/C Order can be placed): Home, Self Care
--- NOTE | 2021-09-16 11:04 | PCM.DC.SUM ---
Documented by User: Tammy Rosa NP, AIR QUALITY SPECIALIST-C 09/16/21 12:26 Providers Date of Admission: 09/14/21 Date of Discharge: 09/16/21 Primary Care Physician: Dr. Tapan Cornelius MD Consultations 09/14/21 19:10 Consult: Cardiology Routine Consulting Provider: Toro Guillermo Reason for Consult: acute STEMI EMERGENT Consult: Yes MD Notified: Yes Date Notified: 09/14/21 Time Notified: 18:38 Method of Notification: Verbal Method of Consult:: In-Person Reason For Visit: ACUTE STEMI Diagnosis Discharge Diagnosis (1) SVT (supraventricular tachycardia): Status: Acute Code(s): I47.1 - Supraventricular tachycardia (2) Hypotension: Status: Acute Code(s): I95.9 - Hypotension, unspecified (3) Essential hypertension: Status: Acute Code(s): I10 - Essential (primary) hypertension (4) Nonrheumatic mitral valve regurgitation: Status: Chronic Code(s): I34.0 - Nonrheumatic mitral (valve) insufficiency (5) Nonrheumatic aortic (valve) stenosis: Status: Chronic Code(s): I35.0 - Nonrheumatic aortic (valve) stenosis (6) Hyperlipidemia: Status: Chronic Code(s): E78.5 - Hyperlipidemia, unspecified Qualifiers: Hyperlipidemia type: pure hypercholesterolemia Qualified Code(s): E78.00 - Pure hypercholesterolemia, unspecified; E78.0 - Pure hypercholesterolemia (7) Paroxysmal A-fib: Status: Chronic Code(s): I48.0 - Paroxysmal atrial fibrillation (8) SERGO (obstructive sleep apnea): Status: Chronic Code(s): G47.33 - Obstructive sleep apnea (adult) (pediatric) (9) ST elevation (STEMI) myocardial infarction: Status: Acute Code(s): I21.3 - ST elevation (STEMI) myocardial infarction of unspecified site Medications at Discharge Home Medications levothyroxine 75 mcg PO DAILY 01/07/17 nitroglycerin 0.4 mg sublingual tablet 0.4 mg SUBLINGUAL Q5-15M PRN #25 tab 12/21/18 lysine 500 mg tablet 500 mg PO DAILY 06/09/19 aspirin 81 mg PO DAILY 11/19/19 finasteride 5 mg PO DAILY #90 tab 11/21/19 warfarin 7.5 mg tablet 7.5 mg PO QODAY tab 01/19/20 carvedilol 6.25 mg tablet 6.25 mg PO BID tab 06/27/21 cholecalciferol (vitamin D3) 25 mcg (1,000 unit) tablet 25 mcg PO DAILY 06/27/21 cyanocobalamin (vitamin B-12) 1,000 mcg tablet 1,000 mcg PO DAILY 06/27/21 acetaminophen 1,000 mg PO TID 14 Days #84 tab 07/12/21 amlodipine 5 mg tablet 5 mg PO DAILY tab 07/31/21 multivitamin 1 tab PO DAILY 07/31/21 rosuvastatin 5 mg tablet 5 mg PO DAILY tab 07/31/21 warfarin 5 mg PO QODAY 09/14/21 ticagrelor [Brilinta] 90 mg PO BID 30 Days #60 tab 09/16/21 Hospital Course Operations None Procedures 2-D Echocardiogram and Cardiac catheterization Summary of Care Provided Hospital Course: Patient is a 75-year-old male admitted 09/14/2021 due to chest pain. 1. STEMI-cardiology consulted. Underwent PCI of occluded proximal LAD followed by placement of drug-eluting stent. Patient also noted to have OM1 lesion that will require additional PCI, plan for elective cath in 2 to 3 weeks. Continue Brilinta, aspirin, carvedilol. Follow-up with cardiology in 2 weeks. 2. Nonsustained V. tach-amnio bolus in ER. PVCs on telemetry, no further episodes of NSVT. 3. CAD-stenting to LAD and balloon angioplasty to the ostium of the diagonal 11/2018. PCI to proximal LAD as noted above. On aspirin, statin, carvedilol. Brilinta added. 4. Nonrheumatic aortic valve stenosis-echocardiogram June 2021 demonstrated an EF of 65%, moderate to severe aortic valve stenosis. Repeat echo pending and will be reviewed prior to discharge. 5. Paroxysmal atrial fibrillation-on Coumadin, carvedilol. Flecainide discontinued due to ME. 6. Hypertension-stable, continue amlodipine, carvedilol. 7. Hyperlipidemia-continue statin. 8. Obstructive sleep apnea-continue home PAP regimen. 9. BPH-continue finasteride, history of TURP. 10. Hypothyroidism-continue Synthroid. Physical Exam Const alert, oriented x3 and no apparent distress Orientation / Consciousness: awake, oriented to person, oriented to place and oriented to time HEENT normocephalic and moist oral mucous membranes Eyes PERRL, EOMs intact bilaterally and conjunctivae normal Neck no lymphadenopathy Resp normal respiratory effort and clear to auscultation bilaterally Cardio regular rate, regular rhythm. + murmur Peripheral Pulses: pulses 2+ throughout GI normal to inspection, nondistended, normoactive bowel sounds, non-tender and non-distended Extremity normal to inspection Skin no rashes or lesions noted Lesions: no lesions Rashes: no rashes Trauma: no lacerations or abrasions Neuro CN's II-XII intact bilaterally, no focal motor deficits, no sensory deficits noted and deep tendon reflexes 2+ bilaterally Psych mental status grossly normal and affect normal Patient seen and examined prior to discharge. Physical assessment as noted above. Patient is stable for discharge with follow up recommendations as noted above. This patient was seen by ISSA Henry under the supervision of Dr. Ford. Time spent examining patient, reviewing data and subsequent management of care: 17 minutes Weight / BMI Weight Weight: 160 lb 7.944 oz Body Mass Index (BMI) 27.6 ABG / Lab / Microbiology Data Result Diagrams: 09/16/21 03:40 09/16/21 03:40 Laboratory: Laboratory Results - last 24 hr 09/16/21 03:40: WBC 8.3, RBC 4.65, Hgb 13.9, Hct 41.0, MCV 88.2, MCH 29.9, MCHC 33.9, RDW Std Deviation 55.8 H, RDW Coeff of Eddie 17.4 H, Plt Count 326, MPV 9.2 09/16/21 03:40: PT 17.4 H, INR 1.5 09/16/21 03:40: Sodium 136, Potassium 3.9, Chloride 102, Carbon Dioxide 28.0, Anion Gap 6, BUN 22 H, Creatinine 0.99, Estim Creat Clear Calc 52.32, Est GFR (MDRD) Af Amer 94, Est GFR (MDRD) Non-Af 78, BUN/Creatinine Ratio 22.2 H, Glucose 108 H, Calcium 8.7 D/C Instructions Discharge Diet: Low fat / Low cholesterol and 2000 mg Sodium Diet Additional Activity Instructions: follow post op cath/activity instructions Call your doctor if your incision/area has: Continuous Slow Oozing, Sudden Increased Bleeding, Increased Pain/ Swelling, Increased Redness, Foul Smelling Discharge and Swelling at the incision site Call your doctor if you observe: Shortness of breath, Dizziness and Chest pain Meaningful Use Info Meaningful Use Diagnoses (Choose all that apply): AMI AMI/Post PCI/Angioplasty Aspirin given w/in 24hrs of arrival?: Yes ASA at discharge?: Yes Statins at discharge?: Yes Gregg/ARB at discharge?: Yes Beta Jarret at discharge?: Yes Done w/ Acute ME measure.: Yes Discharge Plan Admission Admit Date/Time: 09/14/21 18:33 Primary Reason for Your Visit: STEMI Attending Provider: Debra Ford Primary Care Provider: Tapan Cornelius Consulting Providers: Toro Guillermo Instructions Patient Instructions: Symptoms of a Heart Attack, Angiography Risks Complications, Taking Medicines for Your Heart, Heart Attack: Back at Home, Living Well After a Heart Attack Discharge Orders/Prescriptions Prescriptions: New Brilinta 90 mg Tablet 90 mg PO BID 30 Days Qty: 60 RF: 0 Continued lysine 500 mg tablet 500 mg PO DAILY RF: 0 nitroglycerin 0.4 mg tablet, sublingual 0.4 mg SUBLINGUAL Q5-15M PRN (Reason: chest pain) Qty: 25 RF: 3 warfarin 7.5 mg tablet 7.5 mg PO QODAY RF: 0 carvedilol 6.25 mg tablet 6.25 mg PO BID RF: 0 amlodipine 5 mg tablet 5 mg PO DAILY RF: 0 multivitamin Tablet 1 tab PO DAILY RF: 0 cholecalciferol (vitamin D3) 25 mcg (1,000 unit) tablet 25 mcg PO DAILY RF: 0 cyanocobalamin (vitamin B-12) [Vitamin B-12] 1,000 mcg tablet 1,000 mcg PO DAILY RF: 0 levothyroxine 75 MCG tablet 75 mcg PO DAILY RF: 0 aspirin 81 MG tablet,delayed release (DR/EC) 81 mg PO DAILY RF: 0 finasteride 5 MG tablet 5 mg PO DAILY Qty: 90 RF: 3 acetaminophen 500 mg Tablet 1,000 mg PO TID 14 Days Qty: 84 RF: 0 warfarin 5 mg Tablet 5 mg PO QODAY RF: 0 rosuvastatin 5 mg tablet 5 mg PO DAILY RF: 0 Discontinued flecainide 50 mg tablet 50 mg PO BID Qty: 180 RF: 3 Referrals / Follow Up: Shamir Bravo MD [STAFF PHYSICIAN] - 09/30/21 10:30 am Tapan Cornelius MD [Primary Care Provider] - 09/25/21 8:40 am (Appointment made for 09/25 at 0840am w/ Dr. Stewart. Dr. Cornelius had not availability for a couple weeks. ) Disposition Disposition (needs filled in before D/C Order can be placed): Home, Self Care Documented by User: Dr. Debra Ford MD 09/16/21 14:32 Providers Date of Admission: 09/14/21 Date of Discharge: 09/16/21 Reason For Visit: ACUTE STEMI Medications at Discharge Home Medications levothyroxine 75 mcg PO DAILY 01/07/17 nitroglycerin 0.4 mg sublingual tablet 0.4 mg SUBLINGUAL Q5-15M PRN #25 tab 12/21/18 lysine 500 mg tablet 500 mg PO DAILY 06/09/19 aspirin 81 mg PO DAILY 11/19/19 finasteride 5 mg PO DAILY #90 tab 11/21/19 warfarin 7.5 mg tablet 7.5 mg PO QODAY tab 01/19/20 carvedilol 6.25 mg tablet 6.25 mg PO BID tab 06/27/21 cholecalciferol (vitamin D3) 25 mcg (1,000 unit) tablet 25 mcg PO DAILY 06/27/21 cyanocobalamin (vitamin B-12) 1,000 mcg tablet 1,000 mcg PO DAILY 06/27/21 acetaminophen 1,000 mg PO TID 14 Days #84 tab 07/12/21 amlodipine 5 mg tablet 5 mg PO DAILY tab 07/31/21 multivitamin 1 tab PO DAILY 07/31/21 rosuvastatin 5 mg tablet 5 mg PO DAILY tab 07/31/21 warfarin 5 mg PO QODAY 09/14/21 ticagrelor [Brilinta] 90 mg PO BID 30 Days #60 tab 09/16/21 ABG / Lab / Microbiology Data Result Diagrams: 09/16/21 03:40 09/16/21 03:40 Discharge Plan Admission Admit Date/Time: 09/14/21 18:33 Primary Reason for Your Visit: STEMI Attending Provider: Debra Ford Primary Care Provider: Tapan Cornelius Consulting Providers: Toro Guillermo Instructions Patient Instructions: Symptoms of a Heart Attack, Angiography Risks Complications, Taking Medicines for Your Heart, Heart Attack: Back at Home, Living Well After a Heart Attack Discharge Orders/Prescriptions Prescriptions: New Brilinta 90 mg Tablet 90 mg PO BID 30 Days Qty: 60 RF: 0 Continued lysine 500 mg tablet 500 mg PO DAILY RF: 0 nitroglycerin 0.4 mg tablet, sublingual 0.4 mg SUBLINGUAL Q5-15M PRN (Reason: chest pain) Qty: 25 RF: 3 warfarin 7.5 mg tablet 7.5 mg PO QODAY RF: 0 carvedilol 6.25 mg tablet 6.25 mg PO BID RF: 0 amlodipine 5 mg tablet 5 mg PO DAILY RF: 0 multivitamin Tablet 1 tab PO DAILY RF: 0 cholecalciferol (vitamin D3) 25 mcg (1,000 unit) tablet 25 mcg PO DAILY RF: 0 cyanocobalamin (vitamin B-12) [Vitamin B-12] 1,000 mcg tablet 1,000 mcg PO DAILY RF: 0 levothyroxine 75 MCG tablet 75 mcg PO DAILY RF: 0 aspirin 81 MG tablet,delayed release (DR/EC) 81 mg PO DAILY RF: 0 finasteride 5 MG tablet 5 mg PO DAILY Qty: 90 RF: 3 acetaminophen 500 mg Tablet 1,000 mg PO TID 14 Days Qty: 84 RF: 0 warfarin 5 mg Tablet 5 mg PO QODAY RF: 0 rosuvastatin 5 mg tablet 5 mg PO DAILY RF: 0 Discontinued flecainide 50 mg tablet 50 mg PO BID Qty: 180 RF: 3 Referrals / Follow Up: Shamir Bravo MD [STAFF PHYSICIAN] - 09/30/21 10:30 am Tapan Cornelius MD [Primary Care Provider] - 09/25/21 8:40 am (Appointment made for 09/25 at 0840am w/ Dr. Stewart. Dr. Cornelius had not availability for a couple weeks. ) Disposition Disposition (needs filled in before D/C Order can be placed): Home, Self Care Charges/Coding Addendum Addendum: This patient was seen in conjunction with Tammy Rosa NP. I have independently interviewed and examined the patient and reviewed pertinent historical, laboratory, and other data. I have reviewed her note and concur with her documentation 75-year-old male with past medical history of CAD status post stent to LAD and balloon angioplasty to the ostium of the diagonal in 2019 who comes in with severe onset of chest pain. EKG had showed ST elevations in lead V1 and V2. Patient also had an episode of nonsustained V. tach, received amiodarone boluses. He underwent emergent cardiac catheterization and had a stent placed in the proximal LAD. He has 75% stenosis of his obtuse marginal 1. Postprocedure, patient was monitored in the hospital with no acute event. He complains of pain in the posterior neck that improved Lidoderm patches and Tylenol as needed. He will follow-up with cardiac rehab in the outpatient. Physical Exam: Gen: Comfortable, not pale, not jaundiced CVS:HS I +II, regular, no murmurs RESP: Diminished at lung bases GI: BS present and normal, soft, nontender, no palpable organs EXT:No edema Time spent coordinating all aspects of patient's care, discussing with cardiology and nursin minutes Visit Charges Inpatient E&M: 45938 Disch Hosp
--- NOTE | 2021-09-16 13:55 | CHAPLAIN ---
Type of Pastoral Visit _x__ Initial Visit ___ Follow-up Visit ___ On-call Visit ___ General Patient Visit ___ Spiritual Assessment ___ Family Conference ___ Bereavement ___ Rapid Response ___ Code Blue ___ Other (describe below) Pastoral Care Referral From ___ Patient _x__ Family ___ Nurse ___ Physician ___ Assembly Operator ___ Nutritional Services Host ___ Other (describe below) Sacrament/Intervention _x__ Active listening ___ Anointing ___ Confucianist ___ Bereavement ___ Communion ___ Do exploration ___ ___ Life review _x__ Prayer ___ Reconciliation ___ Sacrament of Sick _x__ Supportive presence ___ Wedding ___ Other (describe below) Pastoral Comments patient and spouse in room; patient admits to some level of anxiety and being impatient for news about prognosis/damage to heart; patient speaks freely about his political views on current topics; redirected patient and spouse with offer of spiritual care and prayer; prayer is accepted by pt who acknowledges his belief in God; spouse shares concern for health and getting their spring sosa ready for planting
== END 2021-09-16 14:00 | disposition home or self-care (01) | DRG 247 ==
LOC: ED 16:46 → ICU 17:48
PROVIDERS: Internal Medicine; Admitting Provider Internal Medicine Interventional Cardiology; Emergency Provider Emergency Medicine; PCP Family Medicine; Referring Provider Internal Medicine Interventional Cardiology; Visit Provider Internal Medicine
DX: I21.02 ST elevation (STEMI) myocardial infarction involving left anterior descending coronary artery (principal); I47.1 Supraventricular tachycardia; I95.9 Hypotension, unspecified; I48.0 Paroxysmal atrial fibrillation; E03.9 Hypothyroidism, unspecified; I25.10 Atherosclerotic heart disease of native coronary artery without angina pectoris; I10 Essential (primary) hypertension; G47.33 Obstructive sleep apnea (adult) (pediatric); E78.00 Pure hypercholesterolemia, unspecified; N40.0 Benign prostatic hyperplasia without lower urinary tract symptoms; M54.2 Cervicalgia; I08.3 Combined rheumatic disorders of mitral, aortic and tricuspid valves; Z95.5 Presence of coronary angioplasty implant and graft; Z79.01 Long term (current) use of anticoagulants; Z79.02 Long term (current) use of antithrombotics/antiplatelets; Z79.82 Long term (current) use of aspirin; Z79.899 Other long term (current) drug therapy
CPT/HCPCS: 71045; 80048; 80053; 84484; 85025; 85027; 85610; 85730; 92941; 93005; 93306; 93454; 97802; 99284; J7030; Q9957; Q9967; A4216; C1725; C1769; C1874; C1887; C1894; C8929; C9606; J1327; J1940; J2405

== ENCOUNTER 2021-09-18 11:49 | Emergency (ER) | payer MEDICARE, OTHER, SELFPAY ==
[2017-05-20 14:31] VITALS: BMI 25.0
[2021-09-18 11:52] VITALS: BP 132/94; PULSE 85; RESP 14; TEMP 36.8; O2SAT 98; BMI 28.0
--- NOTE | 2021-09-18 12:36 | EKG12_ITS ---
Test Reason : Blood Pressure : / mmHG Vent. Rate : 066 BPM Atrial Rate : 066 BPM P-R Int : 166 ms QRS Dur : 106 ms QT Int : 408 ms P-R-T Axes : 031 -37 016 degrees QTc Int : 427 ms Normal sinus rhythm with sinus arrhythmia Left axis deviation Septal infarct , age undetermined Abnormal ECG Confirmed by MARGIE SANCHEZ, FREEMAN ([id number]), magazine editor OMAR BAEZ ([id number]) on 09/20/2021 10:18:30 AM Referred By: BRYAN Confirmed By:FREEMAN HANSON MD
[2021-09-18 12:49] LABS: Absolute Lymphocyte Count 1.07 X10^3/uL (0.83-4.51); Absolute Neutrophil Count 5.8 X10^3/uL (2.0-7.7); Basophil# 0.05 X10^3/uL; Basophil% 0.6 % (0-1); Eosinophil# 0.41 X10^3/uL; Hematocrit 44.1 % (40-54); Hemoglobin 14.5 g/dL (13.0-16.5); Lymphocyte # 1.07 X10^3/ul (0.83-4.51); Lymphocyte % 13.1 % (19-41); Mean Corp Hgb Conc 32.9 g/dL (32-36); Mean Corpuscular Hgb 29.7 pg (27.0-32.0); Mean Corpuscular Volume 90.2 fL (80-94); Mean Platelet Vol. 8.8 fl (6.2-12.0); Monocyte# 0.84 X10^3/uL; Monocyte% 10.3 % (0-10); NRBC Flagged by Analyzer 0 % (0-5); Neutrophil # 5.75 X10^3/uL (2.7-7.7); Neutrophil % 70.4 % (47-70); Platelet Count 321 K/mm3 (150-450); RBC Distribution Width CV 17.1 % (11.6-14.6); RBC Distribution Width SD 56.8 fl (35.1-43.9); Red Blood Count 4.89 M/mm3 (4.6-6.2); White Blood Count 8.2 K/mm3 (4.4-11.0)
[2021-09-18] MEDS: 0.9% Normal Saline 1,000 ML 150 ML IV (12:50)
--- NOTE | 2021-09-18 13:00 | RAD_ITS ---
STUDY: X-RAY CHEST REASON FOR EXAM: Male, 75 years old. cp TECHNIQUE: Single AP portable view of the chest. COMPARISON: SEPTEMBER 14, 2021 FINDINGS: The lungs are clear and expanded. There is no demonstrated pleural abnormality. There is mild cardiac enlargement. Normal mediastinum and madeline. Normal visualized pulmonary arteries. There is atherosclerotic tortuosity of the aortic arch and descending thoracic aorta. There are diffuse degenerative changes of the visualized thoracic spine. Normal visualized ribs, clavicles, and shoulders. There is no demonstrated abnormality of the visualized soft tissue structures of the upper abdomen. RAD/Chest 1 View (Portable) IMPRESSION: Degenerative changes, as described above. No demonstrated acute cardiopulmonary process. Electronically Signed: Robert Ling MD at 13:16 EDT ,
[2021-09-18 13:02] LABS: International Normalized Ratio 1.6; Prothrombin Time (Protime)PT. 18.4 SECONDS (11.7-14.9)
[2021-09-18 13:08] LABS: Anion Gap 7 (5-15); BUN 20 mg/dL (7-18); BUN/Creat Ratio 21.8 RATIO (10-20); Calcium,Total 8.4 mg/dL (8.5-10.1); Chloride 108 mmol/L (98-107); Creatinine, Serum 0.92 mg/dL (0.70-1.30); EST Glomerular Filtration Rate 85 mL/min (>60); Est Glom Filt Rate - Afr Amer 103 mL/min (>60); Glucose 93 mg/dL (74-106); Sodium Level 140 mmol/L (136-145); Troponin-I HS 7384 pg/mL (3.0-78.0)
[2021-09-18 13:52] VITALS: BP 123/85; PULSE 86; RESP 19; O2SAT 97
--- NOTE | 2021-09-18 14:28 | EDS_ITS ---
HPI History of Present Illness Chief Complaint: Palpitations Informant: patient Onset/Context/Timing Onset: Today Current Severity: Gone Maximum Severity: Moderate Narrative Narrative: Patient presents via EMS secondary to palpitations. Patient was seen 4 days ago with an acute STEMI. He was taken emergently to [facility]. While in the emergency room at that time he did have a short run of V. tach and received 150 mg of amiodarone. He had an in-stent stenosis that was cleared and a new stent was placed. Patient was discharged home on Thursday, 2 days ago. Patient states while sitting at rest today he developed palpitations and racing heart. His checked his vital signs multiple times and noted his heart rate to be elevated. EMS was called. Initial EKG revealed evidence of SVT at 168. After speaking with med control 6 mg of adenosine was given and patient converted to a sinus rhythm in the 80s. On arrival to the emergency room patient states he has mild discomfort but denies actual chest pain or palpitations at this time. [facility] Medical History Arthritis Atelectasis Atherosclerotic heart disease of resighini coronary artery without angina pectoris Cancer Cardiology follow-up encounter Carotid dissection, 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) Chest pain Chest pain Chest tightness Easy bruising Essential hypertension Excessive bleeding Hearing loss of left ear Hematuria High cholesterol History of BPH History of echocardiogram History of kidney stones History of pericarditis (~04/2017) History of stress test Hyperlipidemia Hypothyroidism Nonrheumatic aortic (valve) stenosis Nonrheumatic mitral valve regurgitation SERGO (obstructive sleep apnea) Paroxysmal A-fib Right inguinal hernia Stented coronary artery (09/14/21) Thymoma, malignant Wears glasses Wears partial dentures Home Medications levothyroxine 75 mcg PO DAILY 01/07/17 [History Last Taken 09/18/21] nitroglycerin 0.4 mg sublingual tablet 0.4 mg SUBLINGUAL Q5-15M PRN #25 tab 12/21/18 [Rx Last Taken Unknown] lysine 500 mg tablet 500 mg PO DAILY 06/09/19 [History Last Taken 09/18/21] aspirin 81 mg PO DAILY 11/19/19 [History Last Taken 09/18/21] finasteride 5 mg PO DAILY #90 tab 11/21/19 [Rx Last Taken 09/18/21] warfarin 7.5 mg tablet 7.5 mg PO QODAY tab 01/19/20 [History Last Taken 09/16/21] carvedilol 6.25 mg tablet 6.25 mg PO BID tab 06/27/21 [History Last Taken 09/18/21] cholecalciferol (vitamin D3) 25 mcg (1,000 unit) tablet 25 mcg PO DAILY 06/27/21 [History Last Taken 09/18/21] cyanocobalamin (vitamin B-12) 1,000 mcg tablet 1,000 mcg PO DAILY 06/27/21 [History Last Taken 09/18/21] acetaminophen 1,000 mg PO TID 14 Days #84 tab 07/12/21 [Rx Last Taken Unknown] amlodipine 5 mg tablet 5 mg PO DAILY tab 07/31/21 [History Last Taken 09/18/21] multivitamin 1 tab PO DAILY 07/31/21 [History Last Taken 09/18/21] rosuvastatin 5 mg tablet 5 mg PO DAILY tab 07/31/21 [History Last Taken 09/17/21] warfarin 5 mg PO QODAY 09/14/21 [History Last Taken 09/17/21] ticagrelor [Brilinta] 90 mg PO BID 30 Days #60 tab 09/16/21 [Rx Last Taken 09/18/21] amiodarone 200 mg PO DAILY 09/18/21 [History Last Taken Unknown] amiodarone 200 mg PO DAILY #35 tab 09/18/21 [Rx Last Taken Unknown] carvedilol [Coreg] 12.5 mg PO BID #60 tab 09/18/21 [Rx Last Taken Unknown] Allergy/AdvReac Type Severity Reaction Status Date / Time cefuroxime Allergy Intermediate Rash Verified 09/18/21 11:54 rosuvastatin [From Crestor] AdvReac Severe severe Verified 09/18/21 11:54 myalgias lisinopril AdvReac Intermediate didn't Verified 09/18/21 11:54 control bp well, labile cephalexin AdvReac Pain in Verified 09/18/21 11:54 joints levofloxacin [From Levaquin] AdvReac achiness Verified 09/18/21 11:54 Family History Father Heart disease Hypertension Mother CVA (cerebral vascular accident) Brother Cancer Hypertension Sister Cancer Hypertension Surgical History H/O right and left heart catheterization (11/12/18) History of arthroscopy of left knee History of cardiac catheterization History of hernia repair History of partial knee replacement History of thymectomy (04/23/17) History of tonsillectomy History of transurethral resection of prostate Presence of coronary angioplasty implant and graft (~09/14/21) Social History Smoking Status: Never smoker alcohol intake: never substance use type: does not use caffeine: No ROS ROS ED Constitutional Constitutional ED: Denies chills or fever(s) Eyes Eyes: Denies change in vision ENT ENT ED: Denies sore throat Cardiovascular Cardiovascular: Reports chest pain, palpitations and racing heartbeat Respiratory/Chest Respiratory/Chest: Denies cough or dyspnea Gastrointestinal Gastrointestinal: Denies abdominal pain, nausea or vomiting Genitourinary Genitourinary ED: Denies dysuria Musculoskeletal Musculoskeletal: Denies back pain or neck pain Integumentary Denies rash Neurologic Neurologic: Denies headache(s) or weakness Allergic/Immunologic Allergic/Immunologic ED: Denies urticaria EXAM Physical Exam Const Vital Signs: 09/18/21 11:52 09/18/21 13:52 09/18/21 15:19 Temperature 98.2 F Temperature Source Temporal Pulse Rate 85 86 86 Respiratory Rate 14 19 H 18 Blood Pressure 132/94 H 123/85 H 116/86 H Blood Pressure Mean 106 97 96 Pulse Ox 98 97 Oxygen Delivery Method Room Air Room Air Positive well nourished and well developed General Appearance ED: well developed HEENT Reports moist mucous membranes Eyes PERRL and EOMs intact bilaterally Neck supple Chest Wall inspection of chest normal and palpation of chest normal Resp normal respiratory effort and clear to auscultation bilaterally Cardio regular rate and regular rhythm GI non-tender Palpation: soft Extremity normal to inspection Neuro oriented x3 Sensorium / Orientation: alert Psych mental status grossly normal Skin no rashes or lesions noted MDM MDM MDM Narrative Medical decision making narrative: 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 EKG, lab work, chest x-ray obtained. Lab Data Attestation: I reviewed the patient's lab results. Labs: Laboratory Results - last 24 hr 09/18/21 09/18/21 09/18/21 12:40 12:40 12:40 WBC 8.2 RBC 4.89 Hgb 14.5 Hct 44.1 MCV 90.2 MCH 29.7 MCHC 32.9 RDW Std Deviation 56.8 H RDW Coeff of Eddie 17.1 H Plt Count 321 MPV 8.8 Immature Gran % (Auto) 0.600 Neut % (Auto) 70.4 H Lymph % (Auto) 13.1 L Drew % (Auto) 10.3 H Eos % (Auto) 5.0 Baso % (Auto) 0.6 Absolute Neuts (auto) 5.8 Absolute Lymphs (auto) 1.07 Nucleated RBC % 0 PT 18.4 H INR 1.6 Sodium 140 Potassium 4.0 Chloride 108 H Carbon Dioxide 25.0 Anion Gap 7 BUN 20 H Creatinine 0.92 Estim Creat Clear Calc 56.30 Est GFR (MDRD) Af Amer 103 Est GFR (MDRD) Non-Af 85 BUN/Creatinine Ratio 21.8 H Glucose 93 Calcium 8.4 L Troponin I High Sens 7384 H* Radiography Chest X-Ray - ED: 1 View, Read by ED Physician and Chronic Changes Diagnostic Testing: Clinical Impression(s) from Imaging Studies Chest X-Ray 09/18/21 13:00 IMPRESSION: Degenerative changes, as described above. No demonstrated acute cardiopulmonary process. Electronically Signed: Robert Ling MD at 13:16 EDT Reading Location ID and State: [address] [place] [address] , Service support , EKG Initial EKG: Attestation: I personally reviewed and interpreted this EKG as follows: Interpretation: Sinus Rhythm (Sinus at 66 with no acute ischemia.) Treatment and Re-Evaluation Narrative: Patient is remained in sinus rhythm throughout his ED stay. Chest x- ray per my interpretation shows chronic changes. Lab work reveals normal potassium. Troponin 7300. It appears his troponin peaked around 45,000 while he was in the hospital. I spoke with Dr. Bravo. He believes the patient had episode of arrhythmia secondary to stopping flecainide when he was here in the hospital and starting amiodarone at a low dose. He is currently on amiodarone 200 mg daily. He did suggest patient take amiodarone 3 times daily x1 week, then twice daily x1 week, then back to daily dose. He also asked that we have the patient double his Coreg dose from 6.25-12.5. states that his blood pressure was low last evening in the 90s. I asked her to check his blood pressure before the evening Coreg dose. If his systolic blood pressure is less than 105 to give the smaller dose. Patient is to follow-up for another heart cath on October 01. He is to check with the office to see when he needs to stop his Coumadin prior to that procedure. All medication instructions have been written out for patient and family. Return instructions provided. Discharge Plan Triage Chief Complaint: Palpitations ED Provider: Rebecca Hendrickson Dx/Rx/DC Orders Clinical Impression: SVT (supraventricular tachycardia) Instructions: ED Understanding Supraventricular Tachycardia (SVT) Prescriptions: New amiodarone 200 mg tablet 200 mg PO DAILY Qty: 35 RF: 0 carvedilol [Coreg] 12.5 mg tablet 12.5 mg PO BID Qty: 60 RF: 0 No Action lysine 500 mg tablet 500 mg PO DAILY RF: 0 nitroglycerin 0.4 mg tablet, sublingual 0.4 mg SUBLINGUAL Q5-15M PRN (Reason: chest pain) Qty: 25 RF: 3 warfarin 7.5 mg tablet 7.5 mg PO QODAY RF: 0 carvedilol 6.25 mg tablet 6.25 mg PO BID RF: 0 amlodipine 5 mg tablet 5 mg PO DAILY RF: 0 multivitamin Tablet 1 tab PO DAILY RF: 0 cholecalciferol (vitamin D3) 25 mcg (1,000 unit) tablet 25 mcg PO DAILY RF: 0 cyanocobalamin (vitamin B-12) [Vitamin B-12] 1,000 mcg tablet 1,000 mcg PO DAILY RF: 0 levothyroxine 75 MCG tablet 75 mcg PO DAILY RF: 0 aspirin 81 MG tablet,delayed release (DR/EC) 81 mg PO DAILY RF: 0 finasteride 5 MG tablet 5 mg PO DAILY Qty: 90 RF: 3 acetaminophen 500 mg Tablet 1,000 mg PO TID 14 Days Qty: 84 RF: 0 warfarin 5 mg Tablet 5 mg PO QODAY RF: 0 Brilinta 90 mg Tablet 90 mg PO BID 30 Days Qty: 60 RF: 0 amiodarone 200 mg tablet 200 mg PO DAILY RF: 0 rosuvastatin 5 mg tablet 5 mg PO DAILY RF: 0 Primary Care Provider: Tapan Cornelius Referrals: Shamir Bravo MD [STAFF PHYSICIAN] - Keep [facility] appointment Tapan Cornelius MD [Primary Care Provider] - Activity Restrictions/Additional Instructions: Medication changes: You are currently on Amiodarone 200mg dailly. For the next 1 week, take Amiodarone 200mg three times a day, then Amiodarone 200mg twice a day for one week, then Back to Amiodarone 200mg daily as previously prescribed. You are currently on Carvedilol 6.25mg daily. Please increase your dose to 12.5mg twice daily. If your blood pressure is low (systolic < 105) only take 6.25mg as discussed.) You will need to stop your Coumadin before your heart cath on October 01. If you do not hear from your heart doctor by early next week, please call them for further instructions about when to stop your Coumadin. Disposition Disposition: Home, Self Care Discharge Date/Time: 09/18/21 16:15
[2021-09-18 15:19] VITALS: BP 116/86; PULSE 86; RESP 18
[2021-09-18 16:14] VITALS: BP 116/86; PULSE 86; RESP 16
== END 2021-09-18 16:15 | disposition home or self-care (01) ==
PROVIDERS: Emergency Provider Emergency Medicine; PCP Family Medicine; Visit Provider Emergency Medicine
DX: I47.1 Supraventricular tachycardia (principal); I48.0 Paroxysmal atrial fibrillation; I10 Essential (primary) hypertension; E78.5 Hyperlipidemia, unspecified; I25.10 Atherosclerotic heart disease of native coronary artery without angina pectoris; G47.33 Obstructive sleep apnea (adult) (pediatric); M19.90 Unspecified osteoarthritis, unspecified site; E03.9 Hypothyroidism, unspecified; Z95.5 Presence of coronary angioplasty implant and graft; Z79.82 Long term (current) use of aspirin; Z79.01 Long term (current) use of anticoagulants; Z79.899 Other long term (current) drug therapy
CPT/HCPCS: 71045; 80048; 84484; 85025; 85610; 93005; 99285; A4216

== ENCOUNTER 2021-10-01 11:27 | Observation (INO) | payer MEDICARE, OTHER, SELFPAY ==
[2017-05-20 14:31] VITALS: BMI 25.0
[2021-09-23 13:35] LABS: INR Fingerstick 1.9; Prothrombin Time Fingerstick 22.2 SEC (11.7-14.9)
[2021-09-30 07:54] VITALS: BMI 28.3
--- NOTE | 2021-09-30 15:12 | PCM.HP.BLA ---
History and Physical Date of Admission: 10/01/21 [facility] [address], [place] [phone] OFFICE VISITDate of Service: 09/30/21 MR#:[id number]:[id number]: HANG KEENAN [facility] #:[id number]:[id number] Provider: ISSA Raza/Sex: 75/M [facility] HPI HPI History of Present Illness Surgical H&P: Yes Details: This is a 75-year-old male who presents to the office today for a cardiovascular outpatient follow-up. He has a history of coronary artery disease with stenting to his LAD and balloon angioplasty to the ostium of the diagonal in November 2018. He also has a history of nonrheumatic aortic valve stenosis, paroxysmal atrial fibrillation, supraventricular tachycardia, hypertension, hyperlipidemia, and obstructive sleep apnea. He did undergo stress test and echocardiogram for preoperative assessment in June of this year. He was noted to have moderate to severe aortic stenosis. He presented to the emergency room on 09/15/2021 with symptoms of severe retrosternal chest pain. He was taken to the [facility], and underwent a successful PCI and stent to the proximal LAD using a drug-eluting stent 3 x 32 mm. He is scheduled for a staged PCI for the 75-80% stenosis of the proximal large OM 1, on 10/01/2021. From a cardiac standpoint, the patient is doing well. He denies any palpitations. He does have complaints of intermittent mild chest discomfort, located mid sternum with rest and exertion. This does not radiate and he denies any other symptoms. He does have an occasional SOB with exertion-he states this is newer. He denies Orthopnea, and PND. He does not have bleeding issues; no blood in urine, stool or nosebleeds. He states that he has not had any energy since being discharged from the hospital-he is attributing this to either the amiodarone or carvedilol. He denies myalgias, or claudication. He denies edema, or sudden weight gain. He states that he has had an occasional lightheadedness. He denies dizziness, syncopal or near syncopal episodes, and headaches. Intake Vital Signs 09/30/21 10:17 Height 5 ft 4 in Weight: 160 lb BMI 27.4 BP 134/83 H Blood Pressure Location Lt brachial Position Sitting Respiration 18 Pulse 49 L Pulse Source Monitor Pulse Oximetry (%) 98 Intake Visit Reasons: STEMI Block Operator Required: No Is patient in pain?: No Allergies cefuroxime Allergy (Intermediate, Verified 09/30/21 10:43) Rash rosuvastatin [From Crestor] Adverse Reaction (Severe, Verified 09/30/21 10:43) severe myalgias lisinopril Adverse Reaction (Intermediate, Verified 09/30/21 10:43) didn't control bp well, labile cephalexin Adverse Reaction (Verified 09/30/21 10:43) Pain in joints levofloxacin [From Levaquin] Adverse Reaction (Verified 09/30/21 10:43) achiness Medications nitroglycerin 0.4 mg sublingual tablet 0.4 mg SUBLINGUAL Q5-15M PRN #25 tab 12/21/18 [Rx Confirmed 09/30/21] lysine 500 mg tablet 500 mg PO DAILY 06/09/19 [History Confirmed 09/30/21] aspirin 81 mg PO DAILY 11/19/19 [History Confirmed 09/30/21] finasteride 5 mg PO DAILY #90 tab 11/21/19 [Rx Confirmed 09/30/21] warfarin 7.5 mg tablet 7.5 mg PO QODAY tab 01/19/20 [History Confirmed 09/30/21] cholecalciferol (vitamin D3) 25 mcg (1,000 unit) tablet 25 mcg PO DAILY 06/27/21 [History Confirmed 09/30/21] cyanocobalamin (vitamin B-12) 1,000 mcg tablet 1,000 mcg PO DAILY 06/27/21 [History Confirmed 09/30/21] acetaminophen 1,000 mg PO TID 14 Days #84 tab 07/12/21 [Rx Confirmed 09/30/21] amlodipine 5 mg tablet 5 mg PO DAILY tab 07/31/21 [History Confirmed 09/30/21] multivitamin 1 tab PO DAILY 07/31/21 [History Confirmed 09/30/21] rosuvastatin 5 mg tablet 5 mg PO DAILY tab 07/31/21 [History Confirmed 09/30/21] warfarin 5 mg PO QODAY 09/14/21 [History Confirmed 09/30/21] ticagrelor [Brilinta] 90 mg PO BID 30 Days #60 tab 09/16/21 [Rx Confirmed 09/30/21] amiodarone 200 mg PO DAILY #35 tab 09/18/21 [Rx Confirmed 09/30/21] carvedilol [Coreg] 12.5 mg PO BID #60 tab 09/18/21 [Rx Confirmed 09/30/21] levothyroxine 75 mcg tablet 88 mcg PO DAILY tab 09/30/21 [History Confirmed 09/30/21] [facility] Medical History (Updated 09/30/21 @ 14:25 by Audrey Georges NP, EXTRACTOR OPERATOR SOLVENT PROCESS-C) Arthritis Atelectasis Atherosclerotic heart disease of [place] coronary artery without angina pectoris Cancer Cardiology follow-up encounter Carotid dissection, 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) Chest pain Chest pain Chest tightness Easy bruising Essential hypertension Excessive bleeding Hearing loss of left ear Hematuria High cholesterol History of BPH History of echocardiogram History of kidney stones History of pericarditis (~04/2017) History of stress test Hyperlipidemia 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 Nonrheumatic aortic (valve) stenosis Nonrheumatic mitral valve regurgitation SERGO (obstructive sleep apnea) Paroxysmal A-fib Right inguinal hernia ST elevation (STEMI) myocardial infarction Stented coronary artery (09/14/21) Thymoma, malignant Wears glasses Wears partial dentures Surgical History H/O right and left heart catheterization (11/12/18) History of arthroscopy of left knee History of cardiac catheterization History of hernia repair History of partial knee replacement History of thymectomy (04/23/17) History of tonsillectomy History of transurethral resection of prostate Presence of coronary angioplasty implant and graft (~09/14/21) Family History (Reviewed 09/30/21 @ 10:43 by Audrey Georges EXTRACTOR OPERATOR SOLVENT PROCESS, EXTRACTOR OPERATOR SOLVENT PROCESS-C) Father Heart disease Hypertension Mother CVA (cerebral vascular accident) Brother Cancer Hypertension Sister Cancer Hypertension Social History Smoking Status: Never smoker alcohol intake: never substance use type: does not use caffeine: No ROS Const Const: Positive for fatigue (since discharge-attributing this to amiodarone or carvedilol); Negative for weakness, fever(s), headache(s), chills, frequent falls, weight gain or weight loss Eyes Eyes: Negative for blind spots, loss of peripheral vision, transient loss of vision, blurry vision, change in vision, double vision, floaters or tunnel vision ENT ENT: Negative for headache(s), dizziness, Nosebleed/epistaxis, balance problems or neck pain Cardio Chest Pain: Yes Frequency: weekly Character: other (discomfort) Onset: at rest and exercise Location: mid sternal Duration: minutes Exacerbation: exercise Palpitations: No Edema: None Muscle aches with walking: None Resp Respiratory: Positive for SOB with activity (newer); Negative for SOB at rest or SOB orthopnea\SOB lying down GI GI: Negative nausea, vomiting, heartburn, bloating, vomiting blood/hematemesis, bright, red blood in stools or black,tarry stools Musc Musc: Negative for muscle aches/ myalgia, muscle weakness, joint pain or balance problems Neuro Neuro: Positive for lightheadedness (occasional); Negative for dizziness, near syncope, syncope, orthostatic symptoms, frequent falls, headache(s), weakness, blurry vision or double vision Armand Hematologic/Lymphatic: Negative for easy bleeding or easy bruising Endo Endo: Positive for fatigue (since discharge-attributing this to amiodarone or carvedilol) Cardiology Exam Const Appearance: cooperative and no acute distress Orientation: alert and oriented x3 Head Head: normal to inspection Ears: hearing grossly normal bilaterally Nose: external nose normal Face and Sinus: face symmetric Eyes General: appearance normal, both eyes and all related structures Eyelids: eyelids normal Conjunctivae: conjunctivae normal Pupils: PERRL and pupil size EOM: EOM intact bilaterally Neck Neck: normal visual inspection Carotids: Negative bruit Chest Chest inspection: normal inspection of the chest and normal respiratory effort Auscultation: Bilateral: Clear to Auscultation Cardio Palpation: normal PMI Rate: bradycardic Rhythm: regular rhythm Heart sounds: S1 normal, S2 normal and murmur; Negative rub or gallop Murmur: Grade 3/6, harsh, mid systolic and KELLY loudest primary aortic area GI GI: normal to inspection and soft; Negative no hepatosplenomegaly Neuro General: patient alert, patient oriented x3 and CN's II-XI intact bilaterally Skin Skin: no rashes or lesions noted Extremities Pulses: Normal: Right Posterior Tibial Pulse, Left Posterior Tibial Pulse, Right Radial Pulse and Left Radial Pulse Lower Extremity Edema: None: Bilateral Psych Psychological: normal affect Supplemental Info Supplemental Information Cardiac Catheterization 08/2021: Findings #1 left main is the normal angiographically bifurcating into LAD and left circumflex 2. Proximal LAD stent is occluded 3. Large OM1 with 75% stenosis in the midportion of the OM1 4. RCA large dominant with no significant obstructive atherosclerosis Conclusion and recommendation 1. Successful PCI of the culprit lesion is identified There is a lesion involving the ostial diagonal however this was left because he had 2 layers of stents in the mid LAD which will make it difficult to cannulate and to intervene on the diagonal there is a NATHALIE-3 flow in the diagonal and the left it alone The OM1 lesion is significant however patient following the PCI does not have any symptoms of chest pain hemodynamically stable and I will plan to do that as an outpatient in elective 2 to 3 weeks. Echocardiogram 09/14/2021: Interpretation Summary The study was technically difficult. Contrast injection was performed. Segmental dysfunction with preserved ejection fraction (see wall motion). The estimated ejection fraction is 60 %. Moderate concentric left ventricular hypertrophy. There is mild to moderate mitral annular calcification. Extension of the mitral annular calcification on the base of the posterior mitral valve leaflet Trivial mitral valve insufficiency. Mild tricuspid valve insufficiency. Moderate to severe aortic valve stenosis. Trivial aortic valve insufficiency. Right ventricular systolic pressure estimated to be 26 mmHg. There is evidence of diastolic dysfunction. Echocardiogram 06/2021: Left ventricular systolic function is normal. The estimated ejection fraction is 65 %. There is mild to moderate mitral annular calcification. Extension the mitral annular calcification onto the base of the posterior mitral valve leaflet. Mild (1+) mitral valve insufficiency. Mild tricuspid valve insufficiency. Moderate to severe aortic valve stenosis. Trivial aortic valve insufficiency. Right ventricular systolic pressure estimated to be 30 mmHg. Diastolic function is indeterminate. Echocardiogram from 02/08/2020: Interpretation Summary The estimated ejection fraction is 65 %. No evidence for diastolic dysfunction. Trivial mitral valve insufficiency. Trivial tricuspid valve insufficiency. Mild aortic stenosis. Trivial aortic valve insufficiency. Transesophageal echocardiogram from 11/23/2018: Interpretation Summary The study was technically limited. The estimated ejection fraction is 65 %. Stage 1 diastolic dysfunction. Bubble contrast study negative for right to left interatrial shunt. Trivial mitral valve insufficiency. Trivial tricuspid valve insufficiency. Moderate restriction of the aortic valve. Moderate aortic stenosis. Calculated aortic valve area (continuity equation) is 1.4-16 cm2. No thrombus is detected in the left atrial appendage. Echocardiogram from 06/13/2017: Conclusions: ?Exam dictation: Pericardial effusion ?The left ventricle is normal in size. There is mild concentric left ventricular perjury. Left ventricular systolic function is normal. EF equals 53?5% (2D biplane) indeterminate left ventricular diastolic dysfunction. ?The right ventricle is normal in size. Right ventricular systolic function is normal. ?The left atrial cavity is mildly dilated. ?Tricuspid aortic valve. There is a low flow, low gradient, moderately severe aortic valve stenosis. NADEGE area is 0.84 cm? (0.48 cm?/m?) by continuity, VTI. The peak gradient is 32 mmHg, the mean gradient is 18 mmHg and the dimensionless valve index is 0.27. ?Exam was compared with prior CC echocardiographic exam performed on 04/25/2017, no significant change. Transthoracic Echocardiogram from 02/24/2013: Interpretation Summary 1. Normal LV size, wall motion, and systolic function, EF 60% 2. Mild (stage I) diastolic dysfunction 3. Mild concentric LVH 4. Calcific aortic valve disease with mild and trivial AR 5. Mitral annular calcification with 1+ MR 6. Normal estimated pulmonary artery pressure 7. No previous echoes available for comparison. Heart catheterization from 11/12/2018: CONCLUSIONS Normal LV size, wall motion,and systolic function Perserved Left Ventricular systolic function with normal EDP LVEF: by LV gram 65 % Single vessel CAD of the mid LAD Non obstructive coronary arteries Aortic Valve Stenosis- Mild Right heart pressures - Normal Aortic Valve Insufficiency Mild RECOMMENDATIONS Staged percutaneous intervention vs. Surgical Intervention DEVEN in 1-2 week to eval for AVR vs medical management followed by PCI to LAD. Restart lovenox on 11/14/2108. Start plavix 75mg po daily. Manual sheath removal. CORONARY ANGIOGRAPHY DOMINANCE: Right Dominant LEFT HEART ASSESSMENT Left Ventricular Ejection Fraction: by LV Gram 65 % Normal LV wall motion Normal Left Ventricular systolic function RIGHT HEART ASSESSMENT Thermal CO: 5.23 Thermal CI: 2.92 Anusha CO: 5.97 Anusha CI: 3.34 PW: 10/7 5 PA: 27/8 15 RV: 28/0 4 RA: 7/4 2 PVR: 153 SVR: 1652 Mitral Valve Area: >3.50 Mitral Valve index: 1.96 Mitral Valve Mean Gradient: 10.5 Right Heart pressures - normal LEFT MAIN: Angiographically normal LEFT ANTERIOR DESCENDING ARTERY: PROX LAD: Mild luminal irregularities less than 30% MID LAD: 85 % Stenosis CIRCUMFLEX ARTERY: MID CIRC: Moderate luminal irregularities up to 50% RIGHT CORONARY ARTERY: Mild luminal irregularities less than 30% RT PDA: Proximal - Mild luminal irregularities VALVE FINDINGS: Aortic Valve Stenosis - mild Aortic Valve Insufficiency: Grade 1 AORTIC ROOT: Angiographically normal Stress Test Report Date: 07-09-2021 Procedure: Pharmacologic stress nuclear imaging study Indications: CAD; PCI; PAF; aortic valve disorder; preoperative evaluation Consent: Per the patient Procedure: The patient underwent pharmacologic (Regadenoson 0.4mg ) evaluation with a peak heart rate of 93 beats per minute (65%predicted maximal heart rate) and a peak blood pressure of 144/92 mmHg. The baseline ECG demonstrated normal sinus rhythm. The peak pharmacologic ECG demonstrated no obvious ECG changes. There were no cardiac dysrhythmias pretest, during pharmacologic infusion, or recovery. There was no complaint of chest discomfort during pharmacologic infusion or recovery. The examination was discontinued secondary to completion of protocol. Impression: 1. Pharmacologic (Regadenoson) evaluation 2. Peak pharmacologic ECG with no obvious ECG changes. 3. There were no cardiac dysrhythmias pretest, during pharmacologic infusion, or recovery. 4. Nuclear images pending Myocardial perfusion imaging study: Technique: The patient was injected with 10.9 millicuries of technetium 99m Cardiolite and subsequently rest SPECT Cardiolite nuclear imaging was obtained in the horizontal long, vertical long, and short axis views. The patient underwent pharmacologic (Regadenoson) evaluation with a peak heart rate of 93 beats per minute (65% percent predicted maximal heart rate) and a peak blood pressure of 144/92 mmHg. The patient was injected with 33.6 millicuries of technetium 99m Cardiolite and subsequently stress SPECT Cardiolite nuclear imaging was obtained in the horizontal long, vertical long, and short axis views. A gated Cardiolite study at peak stress was obtained. Interpretation: Rest and stress SPECT Cardiolite nuclear imaging status post realignment, normalization, and attenuation correction demonstrate relative uniform tracer uptake and myocardial perfusion appearing within normal limits. There is end systolic thickening and brightening. The gated Cardiolite study demonstrates myocardial thickening and inward wall motion. The reported LVEF is 57%. Impression: 1. Rest and stress SPECT Cardiolite nuclear imaging demonstrate relative uniform tracer uptake and myocardial perfusion appearing within normal limits. 2. The gated Cardiolite study reports an LVEF of 57%. Labs: No Data to Display Diagnostics: Electrocardiogram Echocardiogram Chest X-Ray Pulmonary: No Data to Display Assessment and Plan Assessment and Plan (1) Chest tightness: Status: Acute Plan - Audrey Georges NP, EXTRACTOR OPERATOR SOLVENT PROCESS-C: Patient does have complaints of chest discomfort, and shortness of breath with exertion?this is newer. He is scheduled for a staged PCI of his large OM1 on 10/01/2021. (2) Atherosclerotic heart disease of [place] coronary artery without angina pectoris: Status: Acute Qualifiers: [place] vs. transplanted heart: [place] heart Qualified Code(s): I25.10 - Atherosclerotic heart disease of [place] coronary artery without angina pectoris Comment: Successful PTCA/JOSEFINA mid LAD with a 2.5 x 32 Promus Synergy, post dilated in proximal 2/3 with a 2.75 x 8 NC balloon, and flared at proximal stent with a 3.0 x 8 NC Balloon; 85%-->0%, no dissection. Successful PCI with PTCA to the balloon angioplasty only to ostium of DIAG#1 with a 2.0 x 12 balloon; 75%-->30%, no dissection. Plan - Audrey Georges NP, EXTRACTOR OPERATOR SOLVENT PROCESS-C: Patient has a history of coronary artery disease with recent stent placement in August 2021. He does have complaints of chest discomfort, and occasional shortness of breath with exertion?this is newer. He is scheduled for a staged PCI of his Large OM1 on 10/01/2021. At this time, he will continue with his current medical therapy, along with aggressive risk factor and lifestyle modifications. (3) Stented coronary artery: Status: Chronic Comment: Successful PCI of the culprit, occluded proximal LAD stent with predilatation, followed by placement of drug-eluting stent 3 x 32 mm Synergy Postdilated with 3 x 20 mm NC balloon per cardiac cath 09/14/21 Dr. Guillermo ;Successful PTCA/JOSEFINA mid LAD with a 2.5 x 32 Promus Synergy, post dilated in proximal 2/3 with a 2.75 x 8 NC balloon, and flared at proximal stent with a 3.0 x 8 NC Balloon; 85%-->0%, no dissection. Successful PCI with PTCA to the balloon angioplasty only to ostium of DIAG#1 with a 2.0 x 12 balloon; 75%-->30%, no dissection. Orders: Orders: 12 Lead EKG performed by [facility] Today Stacey Georges NP, EXTRACTOR OPERATOR SOLVENT PROCESS-C: Patient has a history of coronary artery disease with recent stent placement to his LAD in August 2021. He does have complaints of chest discomfort, and occasional shortness of breath with exertion?this is newer. He is scheduled for a staged PCI of his Large OM1 on 10/01/2021. At this time, he will continue with his current medical therapy, along with aggressive risk factor and lifestyle modifications. (4) Paroxysmal A-fib: Status: Acute Stacey Georges NP, EXTRACTOR OPERATOR SOLVENT PROCESS-C: Patient has a history of paroxysmal atrial fibrillation. His EKG from today demonstrated sinus bradycardia with heart rate of 50. He does have complaints of lightheadedness since starting amiodarone. He will be asked to decrease his amiodarone dose to 100 mg daily. He will continue carvedilol 12.5 mg twice daily, and warfarin. He will continue to monitor for any concerning symptoms of atrial fibrillation. (5) Sustained SVT: Status: Acute Stacey Georges NP, EXTRACTOR OPERATOR SOLVENT PROCESS-C: Patient has a history of sustained SVT. His EKG from today demonstrates sinus bradycardia with heart rate of 50. He denies any recent SVT symptoms or events. He does have complaints of lightheadedness with starting amiodarone. After discussing with Dr. Bravo, he will be asked to decrease his amiodarone 100 mg daily. He will continue carvedilol 12.5 mg twice daily. He will continue to monitor for any concerning symptoms. (6) Nonrheumatic aortic (valve) stenosis: Status: Acute Comment: Moderately severe per echo 06/15/[address] Weston PEREZ [place]: NADEGE 0.84 Stacey Georges NP, EXTRACTOR OPERATOR SOLVENT PROCESS-C: Patient has a history of nonrheumatic aortic valve stenosis. His most recent echocardiogram from 09/14/2021 demonstrated moderate to severe aortic valve stenosis. We will continue to monitor this with history, exam, and echocardiograms as deemed appropriate. (7) Nonrheumatic mitral valve regurgitation: Status: Acute Comment: Mild 1+ per echo 06/15/17 @ [facility] Tian Stacey Georges EXTRACTOR OPERATOR SOLVENT PROCESS, EXTRACTOR OPERATOR SOLVENT PROCESS-C: Patient has a history of nonrheumatic mitral valve regurgitation. His most recent echocardiogram from 09/14/2021 demonstrated mild to moderate mitral annular calcification, extension of the mitral annular calcification on the base of the posterior mitral valve leaflet, and trivial mitral valve insufficiency. We will continue to monitor this with history, exam, and echocardiograms as deemed appropriate. (8) Essential hypertension: Status: Acute Stacey - Audrey Georges EXTRACTOR OPERATOR SOLVENT PROCESS, EXTRACTOR OPERATOR SOLVENT PROCESS-C: Patient has a history of hypertension. His blood pressure is well controlled at this time. He will continue with his current medical therapy, along with monitoring blood pressures at home. He will notify our office of any persistent high or low blood pressure readings. (9) Hyperlipidemia: Status: Acute Qualifiers: Hyperlipidemia type: pure hypercholesterolemia Qualified Code(s): E78.00 - Pure hypercholesterolemia, unspecified; E78.0 - Pure hypercholesterolemia Stacey Georges EXTRACTOR OPERATOR SOLVENT PROCESS, EXTRACTOR OPERATOR SOLVENT PROCESS-C: Patient has a history of hyperlipidemia. His most recent lipid panel from 07/01/2021: Cholesterol 236, HDL 90, LDL 129, triglycerides 85. He will continue rosuvastatin 5 mg daily, along with aggressive risk factor and lifestyle modifications. Plan Details Additional Comments: Patient will follow up in 4-6 weeks, or sooner if needed. Thank you for allowing me to participate in the care of your patient. Please don't hesitate to call if any issues arise. This note was generated using a voice recognition system and there may be incorrect words, spelling, or punctuation that were not noted when reviewing the office note prior to saving. Follow Up: 4-6 Weeks (EXTRACTOR OPERATOR SOLVENT PROCESS/PA) COVID (Procedure Consent) Procedure Criteria Procedure Criteria: Yes Elective The surgeon/proceduralist and patient have discussed in detail the risk of exposure to and/or potential harm posed by the COVID-19 virus with having a surgery/procedure at this time versus the risk of delaying the surgery/procedure. It is not possible to know either the risk of delaying the surgery or procedure or chance of getting an infection with perfect accuracy, but a joint decision was made between the patient and the surgeon/proceduralist to proceed at this time with the scheduled surgery/procedure as indicated on the consent form. Coding Level of Care Code Off vis,est,level 3 Diagnoses Chest tightness R07.89 Atherosclerotic heart disease of [place] coronary artery without angina pectoris I25.10 [place] vs. transplanted heart: [place] heart Stented coronary artery Z95.5 Paroxysmal A-fib I48.0 Sustained SVT I47.1 Nonrheumatic aortic (valve) stenosis I35.0 Nonrheumatic mitral valve regurgitation I34.0 Essential hypertension I10 Hyperlipidemia E78.00; E78.0 Hyperlipidemia type: pure hypercholesterolemia Coding Level of Care Code Off vis,est,level 3 Diagnoses Chest tightness R07.89 Atherosclerotic heart disease of [place] coronary artery without angina pectoris I25.10 [place] vs. transplanted heart: [place] heart Stented coronary artery Z95.5 Paroxysmal A-fib I48.0 Sustained SVT I47.1 Nonrheumatic aortic (valve) stenosis I35.0 Nonrheumatic mitral valve regurgitation I34.0 Essential hypertension I10 Hyperlipidemia E78.00; E78.0 Hyperlipidemia type: pure hypercholesterolemia 09/30/21 1440<Electronically signed by Audrey Georges EXTRACTOR OPERATOR SOLVENT PROCESS EXTRACTOR OPERATOR SOLVENT PROCESS-C>Date Audrey Georges NP EXTRACTOR OPERATOR SOLVENT PROCESS-C 09/30/21 1510<Electronically signed by Shamir Bravo MD>Cosigner Signature:Date (if applicable)Shamir Bravo MD CC: Dr. Tapan Cornelius MD ~ Assessment & Plan Addt'l Comments I have re-examined the patient. There are no clinical changes since date of exam. The patient is going to continue under the care of Dr. Guillermo of interventional cardiology. This note was generated using a voice recognition system and there may be incorrect words, spelling or punctuation that were not noted when reviewing the office note prior to saving.
[2021-10-01] VITALS (13 sets, daily range): BP systolic 107–149; BP diastolic 68–82; PULSE 48–67; RESP 14–18; TEMP 36.6–36.8; O2SAT 94–98; BMI 26.6
[2021-10-01 07:55] LABS: Prothrombin Time Fingerstick 12.8 SEC (11.7-14.9)
[2021-10-01 09:12] LABS: AST(SGOT) 21 U/L (15-37); Alanine Aminotransfer ALT/SGPT 31 U/L (16-61); Albumin, Serum 3.8 g/dL (3.2-5.0); Alkaline Phosphatase 72 U/L (45-117); Bilirubin, Direct 0.24 mg/dL (0.00-0.30); Cholesterol 169 mg/dL (200); Globulin 3.9 g/dL (2.2-4.2); High Density Lipoprotein 72 mg/dL; Protein, Total 7.7 g/dL (6.4-8.2); Triglycerides 86 mg/dL; Very Low Density Lipoprotein 17 mg/dL (5-40)
--- NOTE | 2021-10-01 11:20 | PCIREPORT_ITS ---
PCI Cardiac Cath Report PCI Report: 1. Successful PCI of proximal OM eccentric 80% stenosis, with primary stenting using drug-eluting stent JOSEFINA/Reed Vasquez MR 3 x 22 mm Postdilated with 3 x 15 mm NC emerge balloon With reduction of stenosis from 80% to 0% And maintenance of pre and post NATHALIE-3 flow. 2. Successful placement of TR band to right radial artery arteriotomy site 3. Moderate sedation. Preprocedure diagnosis; 75-year-old patient scheduled today for elective PCI of OM1 branch Patient recently has episode of STEMI with occluded mid LAD stent had V. tach and has a PCI and stent of the LAD Also had paroxysmal atrial fibrillation was on warfarin and amiodarone for now Patient had a history of valve disease with moderate to severe aortic stenosis LV function is preserved. Today in the Blood Bank Laboratory Technician he been stable clinically he does not have any symptoms of chest pain Access; Right radial artery approach with placement of 6 Micronesian sheath/trauma to the right radial artery A cocktail of 3000 units of heparin, 200 mcg of nitroglycerin and 2.5 mg of verapamil was given through the sheath. In addition patient given a total of 6000 units of heparin The ACT level was 253 at the end of the procedure he was given additional doses of 2000 units of heparin to keep the ACT in the range of around 300 Patient already took his Brilinta and aspirin today. Consent; Risk and benefit of the procedure explained in detail informed consent obtained and placed in the chart Interventional equipment used; 1. 6 Micronesian 3.5 EBU guide catheter 100 cm 2. 0.014 run-through extra floppy 180 cm straight wire 3. 3 x 22 mm drug-eluting stent JOSEFINA/Reed Vasquez 4. 3 x 15 mm NC emerge MR balloon Procedure in detail; Under fluoroscopic guidance we will proceed with a 6 Micronesian 3.5 EBU guide catheter advanced ascending aorta cannulated the left main without difficulty noted the left main is short, then we proceed with 0.014 guidewire run-through across the lesion in the proximal OM1. 2 views MCARTHUR caudal and CAMBODIAN caudal/spider views were obtained. As interventional be used during this procedure And then will proceed with primary stenting using 3 x 22 mm drug-eluting stent followed by NC balloon 3 x 15 mm and achieve an excellent result with no complication in the Blood Bank Laboratory Technician. Conclusion and recommendation; 1. Patient to continue on DAPT with Brilinta low-dose aspirin for 1 year 2. Patient had paroxysmal atrial fibrillation will be on warfarin will be guided by INR 3. Rest of his medication have been reviewed and we will continue the current medication 4. Patient is scheduled for cardiac rehab phase 1 5. Patient will follow up with his primary long lines operator Dr. Bravo for continuation of cardiac care plan for medical management. I discussed with and the patient the PCI procedures and the findings and there is no complication in the Blood Bank Laboratory Technician. Toro Guillermo MD,FACC,[facility] supervisor cytogenetic laboratory
--- NOTE | 2021-10-01 11:45 | EKG12_ITS ---
Test Reason : PC Blood Pressure : / mmHG Vent. Rate : 048 BPM Atrial Rate : 048 BPM P-R Int : 196 ms QRS Dur : 106 ms QT Int : 526 ms P-R-T Axes : 021 -28 041 degrees QTc Int : 469 ms Sinus bradycardia T wave abnormality, consider anterolateral ischemia Prolonged QT Abnormal ECG Confirmed by MARGIE SANCHEZ, FREEMAN ([id number]), news assignment editor OMAR BAEZ ([id number]) on 10/02/2021 11:17:56 AM Referred By: Toro Guillermo Confirmed By:FREEMAN HANSON MD
--- NOTE | 2021-10-01 13:44 | CRPHASE1_ITS ---
Patient Communication Former Patient:: Phase II PHII Cardiac Rehab Discussed with Patient:: Yes Guide to Cardiac Rehab Given to Patient:: No - Staged Procedure. Pt received Booklet on previous hospitalization. Cardiac Rehab Facility Choice List Given to Patient:: Yes Choice Program [facility] PHII:: Communication Given to CR Certified Physician Assistant:: Toro Guillermo Refer Phase II Cardiac Rehab:: Yes Sessions:: 36 sessions - 3 days/wk, 12 weeks Cardiac Rehabilitation Info Cardiac Rehabilitation Program Information: Cardiac Rehabilitation is important for patients like you who are recovering from a heart problem. Cardiac rehabilitation programs are recognized as integral to the continued care of the patient with coronary heart disease. The cardiac rehabilitation program is designed to optimize a patient's physical, psychological, and social functioning. Health career based intervention coordinator work in cardiac rehabilitation programs and assist you with getting the treatments you need to get stronger and healthier - like exercise, healthy eating habits, and medications. Cardiac rehabilitation has been show to help people with heart problems live longer and have better life enjoyment than people who do not go to cardiac rehabilitation. Please contact the Cardiac Rehabilitation Program at [facility] at in two weeks if you have not heard from them.
--- NOTE | 2021-10-01 13:47 | CRPH1.INSTRU ---
General Education CAD and cardiac anatomy and function:: Patient communicates acknowledgment, Needs reinforcement Explanation of diagnoses and procedures:: Patient communicates acknowledgment, Needs reinforcement Sign/Symptoms of ME:: Patient communicates acknowledgment, Needs reinforcement Antiplatelet therapy: Patient communicates acknowledgment, Needs reinforcement Proper use of NTG-SL: Patient communicates acknowledgment, Needs reinforcement Emergency procedures and activation of EMS: Patient communicates acknowledgment, Needs reinforcement Compliance of all prescribed medications: Patient communicates acknowledgment, Needs reinforcement Smoking Patient Nicotine/Smoking Risk Factors Are:: Non-smoker Dyslipidemia Patient Dyslipidemia Risk Factors Are:: Total Cholesterol, Triglycerides, HDL, LDL Recommendations Include:: Lipid profile not available, Reviewed NCEP/ATP guidelines, Therapeutic Lifestyle Change dietary guidelines Dyslipidemia Response Code:: Patient communicates acknowledgment Overweight/Obesity Patient Overweight/Obesity Risk Factors Are:: BMI Normal [24-29 & > 65 years old] Recommendations Include:: Weight loss of 5-10%, Reduced calorie diet, Exercise 5-7 times/week Overweight/Obesity:: Patient communicates acknowledgment Hypertension Recommendations Include:: Maintain BP <130/85, Decrease/maintain normal body weight, Moderation of ETOH Hypertension:: Patient communicates acknowledgment, Family communicates acknowledgment Heart Disease Patient Heart Disease Risk Factors Are:: Previous cardiac event Recommendations Include:: Educated family members of their risk Heart Disease Response Code:: Patient communicates acknowledgment Sedentary Patient Sedentary Risk Factors Are:: Lack of regular exercise Recommendations Include:: Aerobic exercise 5-7 times/week for 20-30 minutes continuously, Benefits of regular exercise, Discussed home walking program, Monitored Outpatient Cardiac Rehab Sedentary Response Code:: Patient communicates acknowledgment, Family communicates acknowledgment Stress Patient Stress Risk Factors Are:: Patient denies stress as a risk factor Recommendations Include:: Identification of stressors, and assessment of coping skills, Stress management techniques Stress Response Code:: Patient communicates acknowledgment, Family communicates acknowledgment
[2021-10-01] MEDS: 0.9% Normal Saline 1,000 ML 75 ML IV (14:02)
[2021-10-01] MEDS: Atorvastatin Calcium 10 MG Tablet PO (14:04)
[2021-10-01] MEDS: Acetaminophen 500 MG Tablet 1000 MG PO ×2 (14:36→22:18)
[2021-10-01] MEDS: Finasteride 5 MG Tablet PO (14:37)
--- NOTE | 2021-10-01 19:22 | CHAPLAIN ---
Type of Pastoral Visit _x__ Initial Visit ___ Follow-up Visit ___ On-call Visit ___ General Patient Visit ___ Spiritual Assessment ___ Family Conference ___ Bereavement ___ Rapid Response ___ Code Blue ___ Other (describe below) Pastoral Care Referral From _x__ Patient ___ Family ___ Nurse ___ Physician ___ Director Of Sustainable Design ___ [place] Filler ___ Other (describe below) Sacrament/Intervention _x__ Active listening ___ Anointing ___ Restoration ___ Bereavement ___ Communion _x__ Do exploration ___ _x__ Life review _x__ Prayer ___ Reconciliation ___ Sacrament of Sick ___ Supportive presence ___ Wedding ___ Other (describe below) Pastoral Comments much life review and expression of the answers to prayer and the goodness of God in patient's life
[2021-10-01] MEDS: Carvedilol 12.5 MG Tablet PO (22:18)
[2021-10-01] MEDS: TICAGRELOR 90 MG TABLET PO (22:18)
[2021-10-02 03:28] VITALS: PULSE 52
[2021-10-02 04:00] VITALS: BP 119/66; PULSE 51; RESP 18; TEMP 36.6; O2SAT 95
[2021-10-02] MEDS: Levothyroxine 75 MCG Tablet PO (05:26)
[2021-10-02] MEDS: Acetaminophen 500 MG Tablet 1000 MG PO (05:27)
[2021-10-02 06:15] LABS: Absolute Neutrophil Count 4.9 X10^3/uL (2.0-7.7); Basophil# 0.04 X10^3/uL; Basophil% 0.6 % (0-1); Eosinophils% 5.6 % (0-5); Hematocrit 41.4 % (40-54); Hemoglobin 13.5 g/dL (13.0-16.5); Lymphocyte % 16.9 % (19-41); Mean Corp Hgb Conc 32.6 g/dL (32-36); Mean Corpuscular Hgb 29.5 pg (27.0-32.0); Mean Corpuscular Volume 90.6 fL (80-94); Mean Platelet Vol. 9.1 fl (6.2-12.0); Monocyte# 0.57 X10^3/uL; NRBC Flagged by Analyzer 0 % (0-5); Neutrophil # 4.87 X10^3/uL (2.7-7.7); Neutrophil % 68.3 % (47-70); Platelet Count 343 K/mm3 (150-450); RBC Distribution Width CV 17.2 % (11.6-14.6); Red Blood Count 4.57 M/mm3 (4.6-6.2); White Blood Count 7.1 K/mm3 (4.4-11.0)
[2021-10-02 06:43] LABS: ALB/GLOB Ratio 0.9 RATIO (0.9-2.4); AST(SGOT) 17 U/L (15-37); Alanine Aminotransfer ALT/SGPT 26 U/L (16-61); Albumin, Serum 3.5 g/dL (3.2-5.0); Alkaline Phosphatase 64 U/L (45-117); Anion Gap 7 (5-15); BUN 21 mg/dL (7-18); BUN/Creat Ratio 19.3 RATIO (10-20); Calcium,Total 8.7 mg/dL (8.5-10.1); Chloride 108 mmol/L (98-107); Creatinine, Serum 1.09 mg/dL (0.70-1.30); EST Glomerular Filtration Rate 70 mL/min (>60); Est Glom Filt Rate - Afr Amer 84 mL/min (>60); Estimated Creatinine Clearance 49.37 ml/min; Globulin 3.7 g/dL (2.2-4.2); Glucose 87 mg/dL (74-106); Potassium 4.1 mmol/L (3.5-5.1); Protein, Total 7.2 g/dL (6.4-8.2); Sodium Level 138 mmol/L (136-145)
[2021-10-02 06:59] VITALS: PULSE 54
[2021-10-02 07:14] VITALS: O2SAT 95
[2021-10-02] MEDS: Multivitamins,Therapeutic Tablet 1 TABLET PO (08:07)
[2021-10-02] MEDS: Aspirin E.C. 81 MG Tablet PO (08:07)
[2021-10-02] MEDS: Amiodarone 200 MG Tablet 100 MG PO (08:07)
--- NOTE | 2021-10-02 08:26 | PCM.DC ---
Discharge Instructions Diet Discharge Diet: Low fat / Low cholesterol Activity Discharge Activity: May Not Drive (x 48 hours), May Shower (today) and May Take a Tub Bath (in 7 days) May resume sexual activity in: 1-2 weeks Weight Bearing Status: - (avoid heavy exertional activity for 1-2 weeks) Dressing / Incision Call your doctor if your incision/area has: Continuous Slow Oozing, Sudden Increased Bleeding, Increased Pain/ Swelling, Increased Redness, Foul Smelling Discharge and Swelling at the incision site Call your doctor if you observe: Fever of 101 or Higher, Shortness of breath, Dizziness, Fainting spells, Swelling in the ankles, Chest pain, Increased palpitations (irregular heartbeat) and Uncontrolled pain Remove Dressing in: 1 day Cleanse incision/area with: Soap & Water Follow Up Care Please Follow Up With: Shamir Bravo MD When: 11/08/2021: 9:00 AM: with ASHLEY Mccullough Test Results: Test results from this visit will be discussed in further detail at your follow-up appointment, if applicable. Discharge Plan Admission Admit Date/Time: 10/01/21 11:27 Primary Reason for Your Visit: CAD; Staged PCI Attending Provider: Toro Guillermo Primary Care Provider: Tapan Cornelius Consulting Providers: Shamir Bravo Discharge Orders/Prescriptions Prescriptions: Continued lysine 500 mg tablet 500 mg PO DAILY RF: 0 nitroglycerin 0.4 mg tablet, sublingual 0.4 mg SUBLINGUAL Q5-15M PRN (Reason: chest pain) Qty: 25 RF: 3 warfarin 7.5 mg tablet 7.5 mg PO QODAY RF: 0 multivitamin Tablet 1 tab PO DAILY RF: 0 cholecalciferol (vitamin D3) 25 mcg (1,000 unit) tablet 25 mcg PO DAILY RF: 0 cyanocobalamin (vitamin B-12) [Vitamin B-12] 1,000 mcg tablet 1,000 mcg PO DAILY RF: 0 amiodarone 200 mg tablet 100 mg PO DAILY Qty: 35 RF: 0 levothyroxine 75 mcg tablet 88 mcg PO DAILY RF: 0 aspirin 81 MG tablet,delayed release (DR/EC) 81 mg PO DAILY RF: 0 finasteride 5 MG tablet 5 mg PO DAILY Qty: 90 RF: 3 acetaminophen 500 mg Tablet 1,000 mg PO TID 14 Days Qty: 84 RF: 0 warfarin 5 mg Tablet 5 mg PO QODAY RF: 0 Brilinta 90 mg Tablet 90 mg PO BID 30 Days Qty: 60 RF: 0 carvedilol [Coreg] 12.5 mg tablet 12.5 mg PO BID Qty: 60 RF: 0 rosuvastatin 5 mg tablet 5 mg PO DAILY RF: 0 No Action amlodipine 5 mg tablet 5 mg PO DAILY RF: 0 Referrals / Follow Up: Tapan Cornelius MD [Primary Care Provider] - Shamir Bravo MD [STAFF PHYSICIAN] -
--- NOTE | 2021-10-02 08:34 | PCM.DC.SUM ---
Providers Date of Admission: 10/01/21 Date of Discharge: 10/02/21 Primary Care Physician: Dr. Tapan Cornelius MD Reason For Visit: STAGED PROCEDURE Diagnosis Discharge Diagnosis (1) Atherosclerotic heart disease of [place] coronary artery without angina pectoris: Status: Acute Code(s): I25.10 - Atherosclerotic heart disease of [place] coronary artery without angina pectoris Qualifiers: [place] vs. transplanted heart: [place] heart Qualified Code(s): I25.10 - Atherosclerotic heart disease of [place] coronary artery without angina pectoris (2) Stented coronary artery: Status: Chronic Code(s): Z95.5 - Presence of coronary angioplasty implant and graft (3) Nonrheumatic aortic (valve) stenosis: Status: Acute Code(s): I35.0 - Nonrheumatic aortic (valve) stenosis (4) Nonrheumatic mitral valve regurgitation: Status: Acute Code(s): I34.0 - Nonrheumatic mitral (valve) insufficiency (5) Paroxysmal A-fib: Status: Acute Code(s): I48.0 - Paroxysmal atrial fibrillation (6) Hyperlipidemia: Status: Acute Code(s): E78.5 - Hyperlipidemia, unspecified Qualifiers: Hyperlipidemia type: pure hypercholesterolemia Qualified Code(s): E78.00 - Pure hypercholesterolemia, unspecified; E78.0 - Pure hypercholesterolemia (7) Essential hypertension: Status: Acute Code(s): I10 - Essential (primary) hypertension Medications at Discharge Home Medications nitroglycerin 0.4 mg sublingual tablet 0.4 mg SUBLINGUAL Q5-15M PRN #25 tab 12/21/18 lysine 500 mg tablet 500 mg PO DAILY 06/09/19 aspirin 81 mg PO DAILY 11/19/19 finasteride 5 mg PO DAILY #90 tab 11/21/19 warfarin 7.5 mg tablet 7.5 mg PO QODAY tab 01/19/20 cholecalciferol (vitamin D3) 25 mcg (1,000 unit) tablet 25 mcg PO DAILY 06/27/21 cyanocobalamin (vitamin B-12) 1,000 mcg tablet 1,000 mcg PO DAILY 06/27/21 acetaminophen 1,000 mg PO TID 14 Days #84 tab 07/12/21 amlodipine 5 mg tablet 5 mg PO DAILY tab 07/31/21 multivitamin 1 tab PO DAILY 07/31/21 rosuvastatin 5 mg tablet 5 mg PO DAILY tab 07/31/21 warfarin 5 mg PO QODAY 09/14/21 Brilinta 90 mg PO BID 30 Days #60 tab 09/16/21 carvedilol [Coreg] 12.5 mg PO BID #60 tab 09/18/21 amiodarone 200 mg tablet 100 mg PO DAILY #35 tab 09/30/21 levothyroxine 75 mcg tablet 88 mcg PO DAILY tab 09/30/21 Hospital Course Procedures Cardiac catheterization and - (Cardiac Intervention: PTCA/STENT) Summary of Care Provided Minutes Spent on Discharge: 45 Hospital Course: Is a 75-year-old male with a past cardiovascular history of an acute ST segment elevation MS status post LAD PCI who presented for staged cardiac catheterization/PCI/stent to the [facility]. This was performed on 10-01-2021 under the direction of Dr. Guillermo of Interventional Cardiology. The procedure included a successful PCI of proximal OM eccentric 80% stenosis, with primary stenting using drug-eluting stent JOSEFINA/[email or web address] [place] MR 3 x 22 mm Postdilated with 3 x 15 mm NC emerge balloon MR. With reduction of stenosis from 80% to 0% and maintenance of pre and post NATHALIE-3 flow. The procedure was without apparent adverse event/complication. The patient was monitored overnight and remained symptomatically and hemodynamically stable. On this day it was felt the patient was stable to be released home for continued outpatient cardiovascular follow-up. Physical Exam Const alert, oriented x3 and no apparent distress General Appearance: cooperative, comfortable, well kempt and well developed HEENT normocephalic, head/scalp atraumatic and hearing grossly normal bilaterally Head and Scalp: normal to inspection, normocephalic and atraumatic Eyes PERRL, EOMs intact bilaterally and conjunctivae normal Neck full ROM Chest Chest: symmetrical chest wall rise Resp normal respiratory effort Auscultation: clear to auscultation bilaterally Cardio regular rate, regular rhythm, S1 normal heart sound and S2 normal heart sound Heart Sounds: murmur systolic III/ harsh mid left sternal border, LVOT and sternal notch GI normal to inspection, nondistended, normoactive bowel sounds Extremity no pedal edema Peripheral Pulses: Yes radial pulses present right (No bruits: No hematoma) 2+ Skin no rashes or lesions noted Neuro oriented x3, moves all extremities, no focal motor deficits and no sensory deficits noted Weight / BMI Weight Weight: 160 lb 1.6 oz Body Mass Index (BMI) 26.6 ABG / Lab / Microbiology Data Result Diagrams: 10/02/21 05:30 10/02/21 05:30 Laboratory: Laboratory Results - last 24 hr 10/01/21 07:56: Total Bilirubin 1.10 H, Direct Bilirubin 0.24, AST 21, ALT 31, Alkaline Phosphatase 72, Total Protein 7.7, Albumin 3.8, Globulin 3.9, Triglycerides 86, Cholesterol 169, LDL Cholesterol 80, VLDL Cholesterol 17, HDL Cholesterol 72 10/02/21 05:30: WBC 7.1, RBC 4.57 L, Hgb 13.5, Hct 41.4, MCV 90.6, MCH 29.5, MCHC 32.6, RDW Std Deviation 57.0 H, RDW Coeff of Eddie 17.2 H, Plt Count 343, MPV 9.1, Immature Gran % (Auto) 0.600, Neut % (Auto) 68.3, Lymph % (Auto) 16.9 L, [place] % (Auto) 8.0, Eos % (Auto) 5.6 H, Baso % (Auto) 0.6, Absolute Neuts (auto) 4.9, Absolute Lymphs (auto) 1.20, Nucleated RBC % 0 10/02/21 05:30: Sodium 138, Potassium 4.1, Chloride 108 H, Carbon Dioxide 23.0, Anion Gap 7, BUN 21 H, Creatinine 1.09, Estim Creat Clear Calc 49.37, Est GFR (MDRD) Af Amer 84, Est GFR (MDRD) Non-Af 70, BUN/Creatinine Ratio 19.3, Glucose 87, Calcium 8.7, Total Bilirubin 1.00, AST 17, ALT 26, Alkaline Phosphatase 64, Total Protein 7.2, Albumin 3.5, Globulin 3.7, Albumin/Globulin Ratio 0.9 D/C Instructions Discharge Diet: Low fat / Low cholesterol May resume sexual activity in: 1-2 weeks Weight Bearing Status: - (avoid heavy exertional activity for 1-2 weeks) Call your doctor if your incision/area has: Continuous Slow Oozing, Sudden Increased Bleeding, Increased Pain/ Swelling, Increased Redness, Foul Smelling Discharge and Swelling at the incision site Call your doctor if you observe: Fever of 101 or Higher, Shortness of breath, Dizziness, Fainting spells, Swelling in the ankles, Chest pain, Increased palpitations (irregular heartbeat) and Uncontrolled pain Cleanse incision/area with: Soap & Water Additional Instructions: Comment regarding medications: Acetaminophen/Tylenol: Previously prescribed by the PCP: Continue with acetaminophen/Tylenol under the directions of of the PCP. Please Follow Up With: Shamir Bravo MD When: 11/08/2021: 9:00 AM: with ASHLEY Mccullough Meaningful Use Info Meaningful Use Diagnoses (Choose all that apply): None applicable Discharge Plan Admission Admit Date/Time: 10/01/21 11:27 Primary Reason for Your Visit: CAD; Staged PCI Attending Provider: Toro Guillermo Primary Care Provider: Tapan Cornelius Consulting Providers: Shamir Bravo Discharge Orders/Prescriptions Prescriptions: Continued lysine 500 mg tablet 500 mg PO DAILY RF: 0 nitroglycerin 0.4 mg tablet, sublingual 0.4 mg SUBLINGUAL Q5-15M PRN (Reason: chest pain) Qty: 25 RF: 3 warfarin 7.5 mg tablet 7.5 mg PO QODAY RF: 0 multivitamin Tablet 1 tab PO DAILY RF: 0 cholecalciferol (vitamin D3) 25 mcg (1,000 unit) tablet 25 mcg PO DAILY RF: 0 cyanocobalamin (vitamin B-12) [Vitamin B-12] 1,000 mcg tablet 1,000 mcg PO DAILY RF: 0 amiodarone 200 mg tablet 100 mg PO DAILY Qty: 35 RF: 0 levothyroxine 75 mcg tablet 88 mcg PO DAILY RF: 0 aspirin 81 MG tablet,delayed release (DR/EC) 81 mg PO DAILY RF: 0 finasteride 5 MG tablet 5 mg PO DAILY Qty: 90 RF: 3 acetaminophen 500 mg Tablet 1,000 mg PO TID 14 Days Qty: 84 RF: 0 warfarin 5 mg Tablet 5 mg PO QODAY RF: 0 Brilinta 90 mg Tablet 90 mg PO BID 30 Days Qty: 60 RF: 0 carvedilol [Coreg] 12.5 mg tablet 12.5 mg PO BID Qty: 60 RF: 0 rosuvastatin 5 mg tablet 5 mg PO DAILY RF: 0 No Action amlodipine 5 mg tablet 5 mg PO DAILY RF: 0 Referrals / Follow Up: Shamir Bravo MD [STAFF PHYSICIAN] - Tapan Cornelius MD [Primary Care Provider] -
[2021-10-02 09:25] VITALS: BP 108/67; PULSE 56; RESP 16; TEMP 36.6; O2SAT 96
[2021-10-02] MEDS: Cyanocobalamin 500 MCG Tablet 1000 MCG PO (09:25)
[2021-10-02] MEDS: TICAGRELOR 90 MG TABLET PO (09:25)
[2021-10-02] MEDS: Cholecalciferol (VIT D3) 25 MCG TABLET (1,000 UNITS) PO (09:26)
[2021-10-02] MEDS: Finasteride 5 MG Tablet PO (09:26)
[2021-10-02] MEDS: Atorvastatin Calcium 10 MG Tablet PO (09:26)
--- NOTE | 2021-10-02 09:56 | PHA.DC.MR ---
Pharmacy Service has performed discharge medication reconciliation for this patient. The patient's discharge medication list was reviewed for discrepancies and discrepancies were resolved. Home Medications nitroglycerin 0.4 mg sublingual tablet 0.4 mg SUBLINGUAL Q5-15M PRN #25 tab 12/21/18 lysine 500 mg tablet 500 mg PO DAILY 06/09/19 aspirin 81 mg PO DAILY 11/19/19 finasteride 5 mg PO DAILY #90 tab 11/21/19 warfarin 7.5 mg tablet 7.5 mg PO QODAY tab 01/19/20 cholecalciferol (vitamin D3) 25 mcg (1,000 unit) tablet 25 mcg PO DAILY 06/27/21 cyanocobalamin (vitamin B-12) 1,000 mcg tablet 1,000 mcg PO DAILY 06/27/21 acetaminophen 1,000 mg PO TID 14 Days #84 tab 07/12/21 amlodipine 5 mg tablet 5 mg PO DAILY tab 07/31/21 multivitamin 1 tab PO DAILY 07/31/21 rosuvastatin 5 mg tablet 5 mg PO DAILY tab 07/31/21 warfarin 5 mg PO QODAY 09/14/21 Brilinta 90 mg PO BID 30 Days #60 tab 09/16/21 carvedilol [Coreg] 12.5 mg PO BID #60 tab 09/18/21 amiodarone 200 mg tablet 100 mg PO DAILY #35 tab 09/30/21 levothyroxine 75 mcg tablet 88 mcg PO DAILY tab 09/30/21
--- NOTE | 2021-10-02 10:00 | EKG12_ITS ---
Test Reason : AM EKG Blood Pressure : / mmHG Vent. Rate : 054 BPM Atrial Rate : 054 BPM P-R Int : 190 ms QRS Dur : 098 ms QT Int : 466 ms P-R-T Axes : 019 -26 069 degrees QTc Int : 441 ms Sinus bradycardia T wave abnormality, consider anterior ischemia Abnormal ECG Confirmed by MARGIE SANCHEZ, FREEMAN ([id number]), publishing editor OMAR BAEZ ([id number]) on 10/03/2021 8:46:16 AM Referred By: Toro Guillermo Confirmed By:FREEMAN HANSON MD
== END 2021-10-02 08:46 | disposition home or self-care (01) ==
LOC: CLSP 11:52 → PCU 11:54
PROVIDERS: Admitting Provider Internal Medicine Cardiovascular Disease; PCP Family Medicine; Referring Provider Internal Medicine Interventional Cardiology; Visit Provider Internal Medicine Interventional Cardiology
DX: I25.10 Atherosclerotic heart disease of native coronary artery without angina pectoris (principal); I47.1 Supraventricular tachycardia; I48.0 Paroxysmal atrial fibrillation; R06.02 Shortness of breath; I10 Essential (primary) hypertension; I08.0 Rheumatic disorders of both mitral and aortic valves; Z79.02 Long term (current) use of antithrombotics/antiplatelets; R07.89 Other chest pain; E78.5 Hyperlipidemia, unspecified; Z01.818 Encounter for other preprocedural examination; Z95.5 Presence of coronary angioplasty implant and graft; Z79.890 Hormone replacement therapy; Z79.899 Other long term (current) drug therapy; Z79.01 Long term (current) use of anticoagulants; M19.90 Unspecified osteoarthritis, unspecified site; G47.33 Obstructive sleep apnea (adult) (pediatric); I25.2 Old myocardial infarction; N40.0 Benign prostatic hyperplasia without lower urinary tract symptoms; E03.9 Hypothyroidism, unspecified
CPT/HCPCS: 36415; 36416; 80053; 80061; 80076; 80299; 85025; 85610; 92928; 93005; 96360; 96361; 99152; 99153; 99218; C1874; J7030; Q9967; C1725; C1769; C1887; C1894; C9600; G0378

== ENCOUNTER → 2021-10-15 | Outpatient (CLI) | payer MEDICARE, OTHER, SELFPAY ==
[2017-05-20 14:31] VITALS: BMI 25.0
--- NOTE | 2021-10-15 08:46 | PCM.CR.HP2 ---
CR - History & Physical - General Arrival date:: 10/15/21 Arrival time:: 08:00 Date of Referral:: 10/01/21 Date of CR Evaluation:: 10/15/21 Referring Physician: Dr. Shamir Bravo Primary Diagnosis: NSTEMI, PCI w/coronary stenting - History of Present Cardiac Event Onset Date: Enter Onset Date of cardiac illnesses in Comment field below Acute Myocardial Infarction within 12 months:: Yes - 09/14/2021 PTCA or coronary stenting:: Yes - 09/14/2021 Type of Symptoms:: chest pain Were there any complications?: none - Sleep Disorder Evaluation Hx of Sleep Apnea: No Do you snore loudly (louder than talking or can be heard through closed doors)?: Yes Do you often feel tired/ fatigued/ sleepy during daytime?: No Has anyone observed you stop breathing during sleep?: No History of Hypertension (for STOP score): Yes STOP Results: Positive - Medications Home Medications: Ambulatory Orders Medication Instructions Recorded nitroglycerin 0.4 mg sublingual 0.4 mg SUBLINGUAL Q5-15M PRN #25 12/21/18 tablet tab lysine 500 mg tablet 500 mg PO DAILY 06/09/19 aspirin 81 mg PO DAILY 11/19/19 finasteride 5 mg PO DAILY #90 tab 11/21/19 cholecalciferol (vitamin D3) 25 25 mcg PO DAILY 06/27/21 mcg (1,000 unit) tablet cyanocobalamin (vitamin B-12) 1,000 mcg PO DAILY 06/27/21 1,000 mcg tablet multivitamin 1 tab PO DAILY 07/31/21 rosuvastatin 5 mg tablet 5 mg PO DAILY tab 07/31/21 amiodarone 200 mg tablet 100 mg PO DAILY #35 tab 09/30/21 acetaminophen 500 mg tablet 1,000 mg PO TID PRN tab 10/09/21 amlodipine 5 mg tablet 5 mg PO .PRN PRN #90 tab 10/09/21 carvedilol 12.5 mg tablet 12.5 mg PO BID #60 tab 10/09/21 levothyroxine 88 mcg tablet 88 mcg PO DAILY 10/09/21 ticagrelor 90 mg tablet 90 mg PO BID 30 Days #60 tab 10/09/21 warfarin 5 mg tablet 5 mg PO QODAY 10/09/21 warfarin 7.5 mg tablet 7.5 mg PO QODAY tab 10/09/21 - Allergies Allergies/Adverse Reactions: Allergies cefuroxime Allergy (Intermediate, Verified 10/09/21 11:18) Rash rosuvastatin [From Crestor] Adverse Reaction (Severe, Verified 10/09/21 11:18) severe myalgias lisinopril Adverse Reaction (Intermediate, Verified 10/09/21 11:18) didn't control bp well, labile cephalexin Adverse Reaction (Verified 10/09/21 11:18) Pain in joints levofloxacin [From Levaquin] Adverse Reaction (Verified 10/09/21 11:18) achiness Advanced Directives - Advanced Directives 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 Has not been vaccinated. Had contact w/person w/symptoms or Covid-19 (+) last 14 days: No Has High Risk Exposures ID'd by Health dept/Inf Control team: No 65 years or older:: Yes Lives in Assisted Living facility:: No Has a chronic lung disease or moderate to severe asthma:: No Has a serious heart condition:: Yes Immunocompromised:: No Severely obese (Body Mass Index of 40 or higher):: No Diabetic:: No Has chronic kidney disease undergoing dialysis:: No Has liver disease:: No - Past Medical Illness Medical History: Past Medical History (Last Reviewed 10/09/21 @ 11:23 by Vashti Haynes) Arthritis M19.90 Atelectasis J98.11 Atherosclerotic heart disease of [place] coronary artery without angina pectoris I25.10 Successful PTCA/JOSEFINA mid LAD with a 2.5 x 32 Promus Synergy, post dilated in proximal 2/3 with a 2.75 x 8 NC balloon, and flared at proximal stent with a 3.0 x 8 NC Balloon; 85%-->0%, no dissection. Successful PCI with PTCA to the balloon angioplasty only to ostium of DIAG#1 with a 2.0 x 12 balloon; 75%-->30%, no dissection. 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 Ontiveros [facility]: NADEGE 0.84 Nonrheumatic mitral valve regurgitation I34.0 Mild 1+ per echo 06/15/17 @ [facility] SERGO (obstructive sleep apnea) G47.33 Paroxysmal A-fib I48.0 [address] inguinal hernia K40.90 ST elevation (STEMI) myocardial infarction I21.3 Stented coronary artery Onset Date: 10/01/21 Z95.5 Successful PCI of proximal OM eccentric 80% stenosis, with primary stenting using drug-eluting stent JOSEFINA/[employer] [place] MR 3 x 22 mm Postdilated with 3 x 15 mm NC emerge balloon MR. With reduction of stenosis from 80% to 0%, And maintenance of pre and post NATHALIE-3 flow 10/01/21 Dr. Guillermo ;Successful PCI of the culprit, occluded proximal LAD stent with predilatation, followed by placement of drug-eluting stent 3 x 32 mm Synergy Postdilated with 3 x 20 mm NC balloon per cardiac cath 09/14/21 Dr. Guillermo ;Successful PTCA/JOSEFINA mid LAD with a 2.5 x 32 Promus Synergy, post dilated in proximal 2/3 with a 2.75 x 8 NC balloon, and flared at proximal stent with a 3.0 x 8 NC Balloon; 85%-->0%, no dissection. Successful PCI with PTCA to the balloon angioplasty only to ostium of DIAG#1 with a 2.0 x 12 balloon; 75%-->30%, no dissection. Thymoma, malignant C37 Wears glasses Z97.3 Wears partial dentures Z97.2 - Past Surgical History Surgical History: Past Surgical History (Last Reviewed 10/09/21 @ 11:23 by Vashti Haynes) H/O right and left heart catheterization Onset Date: 11/12/18 Z98.890 Normal LV size, wall motion,and systolic function; Perserved Left Ventricular systolic function with normal EDP; LVEF: by LV gram 65 %; Single vessel CAD of the mid LAD; Non obstructive coronary arteries. Aortic Valve Stenosis- Mild; Right heart pressures - Normal; Aortic Valve Insufficiency Mild RECOMMENDATIONS: Staged percutaneous intervention vs. Surgical Intervention; DEVEN in 1-2 week to eval for AVR vs medical management followed by PCI to LAD. Restart lovenox on 11/14/2108. Start plavix 75mg po daily. Manual sheath removal. History of arthroscopy of left knee Z98.890 History of cardiac catheterization Z98.890 11/23/2018 [facility] History of hernia repair Z98.890, Z87.19 History of partial knee replacement Z96.659 History of thymectomy Onset Date: 04/23/17 Z90.89 Done @ [facility] per Dr. Ryan Quintanilla for anterior mediastinal mass, malignant History of tonsillectomy Z90.89 History of transurethral resection of prostate Z98.890, Z90.79 Presence of coronary angioplasty implant and graft Onset Date: ~09/14/21 Z95.5 Successful PCI of the culprit, occluded proximal LAD stent with predilatation, followed by placement of drug-eluting stent 3 x 32 mm Synergy Postdilated with 3 x 20 mm NC balloon per cardiac cath 09/14/21 Dr. Guillermo ;Successful PTCA/JOSEFINA mid LAD with a 2.5 x 32 Promus Synergy, post dilated in proximal 2/3 with a 2.75 x 8 NC balloon, and flared at proximal stent with a 3.0 x 8 NC Balloon; 85%-->0%, no dissection. Successful PCI with PTCA to the balloon angioplasty only to ostium of DIAG#1 with a 2.0 x 12 balloon; 75%-->30%, no dissection. Surgical History: appendectomy, herniorrhaphy - Right inguinal, total knee arthroplasty - He had a right total knee arthroplasty 2 years ago and had a left total knee arthroplasty 6 weeks ago., TURP - He is actually had 3 surgeries on his prostate., - - Thymectomy - Family History Summary Family History: Family History (Last Reviewed 10/09/21 @ 11:23 by Vashti Haynes) Father Heart disease Hypertension Mother CVA (cerebral vascular accident) Brother Cancer Hypertension Sister Cancer Hypertension Social History - Smoking History Smoking Status: Never smoker - Alcohol Use Alcohol Usage: No - Substance Abuse Hx Substance Use: No - Occupation Occupation (List type of work in comments):: Retired - Hobbies, Recreation, Social Activities Hobbies: Farm - help son with farming, 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 Left click = Reports ([place]) Review of Present Symptoms: Reports: Shortness of Breath with Exertion - sometimes, Operative Discomfort - still having some chest pressure since having the stent placed. Patient states he feels it is just the stent and not a heart concern at this time., Fatigue - still feels very tired and weak even after the stent., Appetite - Normal, Sleep - Normal. Denies: Shortness of Breath at Rest, Dizziness/Lightheadedness, Appetite - Special Diet, Sexual Changes - Pain Is Patient Pain Free?: Yes Pain Location: lower extremity - right knee surgery recently still having some discomfort in the knee. Pain Level: 2/10 Risk Factor Assessment - Vital Signs Temperature: 97.9 F Respiratory Rate: 14 Pulse Ox: 97 Blood Pressure: 132/94 - Pulse Pulse Rate: 85 Pulse Rhythm: Regular - Hypertension Blood Pressure Sitting - Left Arm: 132/94 - Blood Cholesterol/Lipids Total Cholesterol (mg/dL) Goal = less than 200 mg/dL: 169 HDL Cholesterol (mg/dL) Goal = less than 40 mg/dL: 72 LDL Cholesterol (mg/dL) Goal = less than 70 mg/dL: 80 Triglycerides (mg/dL) Goal = less than 150 mg/dL: 86 - Obesity Height: 5 ft 5 in Weight:: 160 lb Weight in Pounds: 160.0 lbs Weight Source: Stated by Patient Body Mass Index (BMI): 26.6 Nutritional Referral for Obesity: No - Physical Inactivity Physical Inactivity: None - Family History Family History: Family History (Last Reviewed 10/09/21 @ 11:23 by Vashti Haynes) Father Heart disease Hypertension Mother CVA (cerebral vascular accident) Brother Cancer Hypertension Sister Cancer Hypertension Motivation - Motivation to Participate On a scale of 1 to 10, how prepared are you to commit to attending program?: 3 What do you see as barriers to successfully being able to complete the program?: have mixed feeling about it, recovered fine the last time without it. What do you see as the benefits of succesfully completing the program? In other words, what do you hope to get out of participating in the program?: hope it would help Are there issues you are dealing with that will interfere with completing the program?: Wasn't treated well in the ER, have mixed feeling. Do you have a spouse or signficant other, family or friends who will help support you to complete the program?: Yes.
[2021-10-15 09:01] VITALS: BP 132/94; PULSE 85; RESP 14; TEMP 36.6; O2SAT 97; BMI 26.6
--- NOTE | 2021-10-15 09:01 | CR.ITP_ITS ---
Diagnosis - General Information Admitting Diagnosis: NSTEMI, PCI w/coronary stenting Personal Learning Style:: Audio/Visual, Written Barriers to Learning: Decreased Motivation, Hearing Impairment, Vision Impairment Stage of change r/t lifestyle modifications:: Contemplation Gave educational material for:: Treating Heart Disease, Emotions & Heart Disease, Stress Management & Relaxation, Sleep Disorders & Heart Disease, How The Heart Works, What it means to have Heart Disease, How Coronary Artery Disease is Diagnosed, Heart Procedures, What Heart Medications Do, Risk Factors & Modifications, Living an Active Life, Nutrition - Education/Goals Individual Counseling: Initial Assessment: Abnormal Cholesterol Levels, High Blood Pressure Cardiac Rehabilitation Goals: 1. Maintain the individual as the primary focus of care. 2. To improve the patient's quality of life. 3. Identification of cardiac risk factors and provide cardiac risk factor management. 4. Enhance the psychosocial status of the patient. 5. Reconditioning enough to allow the patient to resume customary activities. 6. Control symptoms of cardiac disease Personal Goals: Initial Assessment: Improve energy level, Get back to work, or to resume activities faster, Improve knowledge of cardiac disease, Improve diet and eating habits (eat healthier) Scale for measuring improvement of personal goals: Enter appropriate number in Comments. 2 = Unchanged. 3 = Slightly Better. 4 = Moderate Improvement. 5 = Met my Goal - Diagnosis & Disease Process Outcomes/Goals: Pt IDs own risk factors & lifestyle modifications by Session 10, Verbalizes symptoms of angina & response by session 3., Pt independently manages Plan/Interventions: Assist Pt to ID & engage in lifestyle modification to reduce CVD risk, Instruct on individual risk factors, Review symptoms of angina & emergency actions, Review secondary diagnosis & identify educational needs. - Safety Referral to Physical Therapy: No Referral to [facility] Case Management: No Fall Risk Assessed:: Yes Assistive Devices:: None Exercise - Initial Assessment - Visit Date of Eval: 10/15/21 Session #:: 0 - pre-cardiac rehab evaluation Mets: Pre-: >5 METS for 30 minutes by discharge Comments:: Patient was previously referred to Cardiac Rehab following a previous stent procedure and dropped out after his first session. Patient stated today, he is unlikely to participate in cardiac rehab but we will see. Patient is unhappy with his care as an inpatient during this recent PCI admission and treatment in the emergency room. I did provide the patient with the Name and phone number of the Patient Advocate (Chase Mulligan). - Physician Prescribed Exercise Modalities: Treadmill, NuStep, SciFit Frequency: 3x/week for 12 weeks [36 sessions] Intensity: 60-80% of age predicted maximum heart rate reserve Current METSs:: 3.0 Target Heart Rate:: 93-121 Resting Blood Pressure: 132/94 EKG Type: Normal Sinus Rhythm - Outcomes & Goals Goals:: Verbalizes understanding of THR, RPE & goal METS by session 6, Documents in home exercise log/reports 30 min aerobic 5 day/wk by DC, Demonstrates accurate pulse taking by DC - Intervention & Plan Exercise Program Goals: Instruct on personal THR & RPE, Instruct on MET level & personal MET goal, Show patient to take own pulse /validate performance until accurate, Instruct on home exercise - Physical Activity Home Exercise Physical Activity - Home Exercise: Safe Exercise, Warm-up, Self-monitoring, Cool-Down, Home Exercise > 30 min Daily, Sitting Time <3 hours/daily - Outcomes & Goals Outcomes/Goals: Demonstrates correct Warm-up/exercise Cool-Down (S3) if = 2.5 METs, Verbalizes symptoms of exercise intolerance by Session 3 (S3), Demonstrate safe equipment use (S3) & follows exercise prescrition (6) - Intervention & Plan Plan/Intervention: Instruct warm-up & cool-down if exercising at > 2 METs, Instruct on symptoms of exercise intolerance & actions to take, Instruct & monitor on saf, Assess intial functional capacity & safety risk Nutrition - Initial Assessment - Program Goals Nutrition Program Goals: LDL <100 optimal. 100 - 129 Near optimal. 130 - 159 Borderline High. 160 - 189 High. Total Cholesterol <200 desirable. 200 - 239 Borderline High. >/= 240 High. HDL < 40 Low >/=60 High. Triglycerides <150 desirable. <199 optimal. VlDL 5 - 40. HgbA1C <7%. BMI <25 Patient has diagnosis of Hyperlipidemia (ICD E78)?: Yes - Visit Date of Assessment:: 10/15/21 Session #:: 0 - Cholesterol/Lipids Triglycerides (mg/dL): 86 Total Cholesterol (mg/dL): 169 LDL Cholesterol (mg/dL): 80 HDL Cholesterol (mg/dL): 72 Determine presence & major risk factors that modify LDL goal: Hypertension or hypertensive medication, Family history of premature CHD in Male < 55 years: female <65 yearsFa, Age men > 45 years; women >/= 55 years Outcomes/Goals: Pt IDs own risk factors & lifestyle modifications by Session 10, Verbalizes symptoms of angina & response by session 3., Pt independently manages Intervention/Plan: Instruct on personal lipid levels & lipid goals/NCEP guidelines, Instruct on cholesterol Referral to dietitian:: No - Weight Mgt (Other Care) Not Applicable: Yes Height: 5 ft 4 in Weight:: 160 lb BMI: 27.4 Diagnosis Overweight/Obesity BMI> 30% ICD-10 E66: No Diagnosis High BMI/Morbid Obesity BMI> 35% ICD-10 Z68: No Outcomes/Goals: Pt sets, maintains & shows weight loss goal & trend during rehab Intervention/Plan: Instruct on ideal BMI & set weight loss goal w/patient, Assist pt to ID & incorporate diet changes for weight loss by S9, Encourage goal of using 250-300dcal per session for weight loss - Healthy Eating Habits Will attend diet classes:: Yes Outcomes/Goals:: Consume diet rich in vegs,fruits,whole grain/high fiber,fish,lean meat, Limit sat/trans fats,cholesterol & added salts & sugars Intervention/Plan:: Assess current eating habits - Education Gave educational materials for:: Healthy eating Nutrition - 30-Day Assessment Nutrition - 60-Day Assessment Nutrition - 90-Day Assessment Nutrition - Final Assessment Medical - Initial Assessment - Visit Date of Eval: 10/15/21 Session #:: 0 - pre-cardiac rehab evaluation - Medication Compliance Preventative Medication(s):: Aspirin, Ticagrelor/P2Y12 inhibitor, Statin/lipid, Beta shawn H/O mental health issues: depression, anxiety, or addiction?: No Doesn?t believe in the benefits of treatment?: No Believes medications are unnecessary or harmful?: No Has a concern about medication side effects?: No Expresses concern over the cost of medications?: No Outcomes/Goals: Verbalizes medications,desired effect & common side effects @ DC, Pt self-reports following medication regimen, Keeps card in wallet w/medications listed by DC Interventions/plans: Instruct on medication effects & side effects, Review medication list w/patient every two weeks, Instruct importance of taking meds as ordered & assist problem solving - Tobacco Use Tobacco Use: Non-smoker - Hypertension Hypertension Diagnosis:: Hypertension ICD-10 I10 Resting Blood Pressure:: 132/94 [place] [employer] Hypertension Guidelines: [place] [employer] Hypertension Guidelines. Normal BP Less than 120/80. Elevated BP 120/80. Hypertension Stage 1: BP 130-139/80-89. Hypertesnion Stage 2: BP 140 or higher/90 or higher. Hypertension Crisis: BP higher than 180/120 Outcomes/Goals: Able to verbalize/achieve optimal blood pressure <130/80, Incorporates diet changes & exercise for blood pressure control by DC Interventions/plan: Instruct on optimal blood pressure, hypertension & medications, Instruct on effects of sodium, alcohol, stress, exercise &hypertension - Tobacco Cessation Referral Smoking Cessation Referral:: No Individual Education/Counseling:: No Education Schedule Given:: Yes Medical- 30-Day Assessment Medical- 60-Day Assessment Medical- 90-Day Assessment Medical - Final Assessment Psychosocial - Initial Assess - VIsit Date of Eval: 10/15/21 Session #:: 0 - pre-cardiac rehab evaluation Not Applicable: No History of previous Mental disease:: Yes History of Emotional Disorders: Depression - Psychosocial Test Tool Used:: [employer] [place] QOL Cardiac, PHQ-9 Questionnaire phq-9 Severity: Severity. 1-4 Minimal Depression. 5-9 Mild Depression. 10-14 Moderate Depression. 15-19 Moderately Sever Depression. 20-27 Severe Depression. Rule: - Referral to Behavioral Health PS - Interventions: Yes Attend Stress Management Classes, No Referral to Behavioral Health if PHQ-9 score >9:, No Referral to [facility], No Referral to Physician if PHQ-9 if score is 5-9: - Outcomes/Goals: See list Psychosocial Outcomes/Goals:: ID's personal stressors & 2 strategies to manage stress by discharge - Intervention/Plan: See List Interventions/Plan:: Assess stressors,coping strategies & signs of derpression on admission, Instruct/assist pt to develop coping & personal stress Mgt strategies, Instruct patient to recognize signs & symptoms of depression, Instruct patient to recog Psychosocial - 30-Day Assess Psychosocial - 60-Day Assess Psychosocial - 90-Day Assess Psychosocial - Final Assessmen Patient Health Questionnaire Initial Assessment 1. Little interest or pleasure in doing things: Several days 2. Feeling down, depressed, or hopeless: Several days 3. Trouble falling or staying asleep, or sleeping too much: Not at all 4. Feeling tired or having little energy: Several days 5. Poor appetite or overeating: Several days 6. Feeling bad about yourself -- or that you are a failure or have let yourself or your family down: Several days 7. Trouble concentrating on things, such as reading the newspaper or watching television: Not at all 8. Moving or speaking so slowly that other people could have noticed. Or the opposite - being so fidgety or restless that you have been moving around a lot more than usual: Not at all 9. Thoughts that you would be better off , or of hurting yourself in some way: Not at all Total Score: 5 DAMIAN-Q SV Test - Statements CAD is a disease of the arteries in the heart: True Examples of risk factors for heart disease: True Angina is chest pain or discomfort: I Don't Know The benefits of resistance training include: I Don't Know Eating more meat and dairy products: I Don't Know Anti-platelet medications such as aspirin are important: False The only effective way to manage stress: False An exercise warm-up slowly increases heart rate: True Prepared, processed foods usually have high sodium: True Depression is common after a heart attack: True The statin medications lower cholesterol: True To control blood pressure, lower the amount of sodium: True If someone gets chest discomfort during walking: False Transfats are partially hydrogenated vegetable oils: I Don't Know Sleep apnea that is not treated increases the risk: I Don't Know To control cholesterol, one should become a vegetarian: False Someone knows if he/she is exercising at the right level: I Don't Know Diabetes cannot be prevented with exercise & health eating: False Stress is a large risk for heart attack: True A diet that can help lower blood pressure is rich in: True - Total Score Total Correct Responses: 12 Self-Efficacy Initial Assessment We would like to know how confident you are in doing certain activities. Please select your confidence level for:: Select your confidence level for the following using the scale 1-10 where 1 is not at all confident and 10 is totally confident. Your score is the average of all 6 responses. Fatigue: How confident are you that you can keep the fatigue caused by your disease from interfering with the things you want to do? Select Number: 8 Physical Discomfort or Pain: How confident are you that you can keep the physical discomfort or pain of your disease from interfering with the things you want to do? Select Number: 8 Emotional Distress: How confident are you that you can keep the emotional distress caused by your disease from interfering with the things you want to do? Select Number: 8 Other Symptoms or Health Problems: How confident are you that you can keep other symptoms or health problems from interfering with the things you want to do? Select Number: 9 Different Tasks and Activities: How confident are you that you can do the different tasks and activities needed to manage your health condition so as to reduce your need to see a doctor? Select Number: 9 Medication: How confident are you that you can do things other than just taking medication to reduce how much your illness affects your everyday life? Select Number: 9 Total Score:: 8 Nutrition Survey - Nutrition Survey Initial Have you lost >10 lbs over the past 2 months without trying?: No Are you following a special diet at home for diabetes, low fat, or low salt?: Yes Are you interested in meeting with a dietitian for help understanding your diet?: No Do you eat less than 3 meals a day?: No Do you eat fatty meats (gay, sausage, ribs, etc), fried foods, desserts, large amounts of salad dressings, margarine, butter, or cheese most days?: No Do you have food allergies? [Enter types in comment field]: No Do you eat in restaurants more than 3 times a week?: No Do you season food with salt, seasoning salt, or garlic salt?: No Do you used canned, boxed, frozen meals, or soups, seasoning packets?: No Total Score:: 1
[2021-10-15 09:14] VITALS: BP 132/94; BMI 27.4
== END | disposition home or self-care (01) ==
LOC: CR 08:08
PROVIDERS: PCP Family Medicine; Visit Provider Internal Medicine Cardiovascular Disease
DX: Z00.00 Encounter for general adult medical examination without abnormal findings (principal)

== ENCOUNTER 2021-11-04 08:00 | Outpatient (RCR) | payer MEDICARE, OTHER, SELFPAY ==
[2021-10-15 09:14] VITALS: BMI 27.4
--- NOTE | 2021-11-15 08:37 | PCM.CR.ITP ---
Diagnosis Exercise - 30-day Assessment - Visit Date of Eval: 11/15/21 Session #:: 6 - Physician Prescribed Exercise Modalities: Treadmill, Airdyne, NuStep Frequency: 3x/week for 12 weeks [36 sessions] Intensity: 60-80% of age predicted maximum heart rate reserve Current METSs:: 4 Target Heart Rate:: 93-121 Current RPE:: 10-11 Maximum Excercise HR:: 86 Resting Blood Pressure: 124/60 Maximum Exercise Blood Pressure: 140/72 EKG Type: NSR with occas PAC and rare PVC - Outcomes & Goals Goals:: Verbalizes understanding of THR, RPE & goal METS by session 6, Documents in home exercise log/reports 30 min aerobic 5 day/wk by DC, Demonstrates accurate pulse taking by DC, Other additional outcome/goals: see below - Intervention & Plan Exercise Program Goals: Instruct on personal THR & RPE, Instruct on MET level & personal MET goal, Show patient to take own pulse /validate performance until accurate, Instruct on home exercise, Other additional plan/int - 30-day Reassessments 30 day Reassessments:: Progressing - Physical Activity Home Exercise Physical Activity - Home Exercise: Safe Exercise, Warm-up, Self-monitoring, Cool-Down, Home Exercise > 30 min Daily, Sitting Time <3 hours/daily - Outcomes & Goals Outcomes/Goals: Demonstrates correct Warm-up/exercise Cool-Down (S3) if = 2.5 METs, Verbalizes symptoms of exercise intolerance by Session 3 (S3), Demonstrate safe equipment use (S3) & follows exercise prescrition (6), Other: See below - Intervention & Plan Plan/Intervention: Instruct warm-up & cool-down if exercising at > 2 METs, Instruct on symptoms of exercise intolerance & actions to take, Instruct & monitor on saf, Assess intial functional capacity & safety risk, Other See below - 30-day Reassessments 30 day Reassessments:: Progressing Nutrition - Initial Assessment Nutrition - 30-Day Assessment - Program Goals Nutrition Program Goals: LDL <100 optimal. 100 - 129 Near optimal. 130 - 159 Borderline High. 160 - 189 High. Total Cholesterol <200 desirable. 200 - 239 Borderline High. >/= 240 High. HDL < 40 Low >/=60 High. Triglycerides <150 desirable. <199 optimal. VlDL 5 - 40. HgbA1C <7%. BMI <25 Patient has diagnosis of Hyperlipidemia (ICD E78)?: Yes - Visit Date of Assessment:: 11/15/21 Session #:: 7 - Cholesterol/Lipids Determine presence & major risk factors that modify LDL goal: Hypertension or hypertensive medication, Low HDL cholesterol <40 mg/dL*, Family history of premature CHD in Male < 55 years: female <65 yearsFa, Age men > 45 years; women >/= 55 years Outcomes/Goals: Pt IDs own risk factors & lifestyle modifications by Session 10, Verbalizes symptoms of angina & response by session 3., Pt independently manages, Other Additional Outcomes/Goals: Intervention/Plan: Advocate for lipid panel cholesterol medication if applicable, Instruct on personal lipid levels & lipid goals/NCEP guidelines, Instruct on cholesterol, Other additional plan/int Referral to dietitian:: No - Weight Mgt (Other Care) Height: 5 ft 4 in Weight:: 71.214 kg BMI: 26.9 Diagnosis Overweight/Obesity BMI> 30% ICD-10 E66: No Diagnosis High BMI/Morbid Obesity BMI> 35% ICD-10 Z68: No Outcomes/Goals: Pt sets, maintains & shows weight loss goal & trend during rehab, Other additional outcomes/goals Intervention/Plan: Instruct on ideal BMI & set weight loss goal w/patient, Assist pt to ID & incorporate diet changes for weight loss by S9, Refer to Structured Weight Loss program as appropriate, Encourage goal of using 250-300dcal per session for weight loss, Other additional plan/interventions 30 day Reassessments:: Progressing - Healthy Eating Habits Will attend diet classes:: Yes Outcomes/Goals:: Consume diet rich in vegs,fruits,whole grain/high fiber,fish,lean meat, Limit sat/trans fats,cholesterol & added salts & sugars, Other additional outcome/goals: Intervention/Plan:: Assess current eating habits, Other Additional plan/interventions 30-day Reassessments:: Progressing - Education Gave educational materials for:: Signs & symptoms of hypoglycemia, Signs & symptoms of hyperglycemia, Relate diabetes to coronary artery disease, Healthy eating Nutrition - 60-Day Assessment Nutrition - 90-Day Assessment Nutrition - Final Assessment Medical - Initial Assessment Medical- 30-Day Assessment - Visit Date of Eval: 11/15/21 Session #:: 7 - Medication Compliance Preventative Medication(s):: Aspirin, Ticagrelor/P2Y12 inhibitor, Statin/lipid, Beta shawn H/O mental health issues: depression, anxiety, or addiction?: No Doesn?t believe in the benefits of treatment?: No Believes medications are unnecessary or harmful?: No Has a concern about medication side effects?: No Expresses concern over the cost of medications?: No Outcomes/Goals: Verbalizes medications,desired effect & common side effects @ DC, Pt self-reports following medication regimen, Keeps card in wallet w/medications listed by DC, Other additional outcome/goals: Interventions/plans: Instruct on medication effects & side effects, Review medication list w/patient every two weeks, Instruct importance of taking meds as ordered & assist problem solving, Other additional 30-day Reassessments:: Progressing - Tobacco Use Tobacco Use: Non-smoker - Hypertension Hypertension Diagnosis:: Hypertension ICD-10 I10 [place] [employer] Hypertension Guidelines: [place] [employer] Hypertension Guidelines. Normal BP Less than 120/80. Elevated BP 120/80. Hypertension Stage 1: BP 130-139/80-89. Hypertesnion Stage 2: BP 140 or higher/90 or higher. Hypertension Crisis: BP higher than 180/120 Peak Exercise Blood Pressure:: 124/60 Outcomes/Goals: Able to verbalize/achieve optimal blood pressure <130/80, Incorporates diet changes & exercise for blood pressure control by DC, Other additional outcomes/goals Interventions/plan: Instruct on optimal blood pressure, hypertension & medications, Instruct on effects of sodium, alcohol, stress, exercise &hypertension, Other additional plan/interventions 30 day Reassessments:: Progressing - Tobacco Cessation Referral Smoking Cessation Referral:: No Individual Education/Counseling:: No Education Schedule Given:: Yes Medical- 60-Day Assessment Medical- 90-Day Assessment Medical - Final Assessment Psychosocial - Initial Assess Psychosocial - 30-Day Assess - VIsit Date of Eval: 11/15/21 Session #:: 7 History of previous Mental disease:: Yes History of Emotional Disorders: Depression - Psychosocial Test Tool Used:: [employer] QOL Cardiac, PHQ-9 Questionnaire phq-9 Severity: Severity. 1-4 Minimal Depression. 5-9 Mild Depression. 10-14 Moderate Depression. 15-19 Moderately Sever Depression. 20-27 Severe Depression. Rule: - Outcomes/Goals: See list Psychosocial Outcomes/Goals:: ID's personal stressors & 2 strategies to manage stress by discharge, Other Additional outcome/goals: - Intervention/Plan: See List Interventions/Plan:: Assess stressors,coping strategies & signs of derpression on admission, Instruct/assist pt to develop coping & personal stress Mgt strategies, Refer to Behavioral Health if appropriate, Refer to Physician if appropriate, Instruct patient to recognize signs & symptoms of depression, Instruct patient to recog, Other additional plan/intervention - 30-day Reassessments: 30 day Reassessments:: Progressing Psychosocial - 60-Day Assess Psychosocial - 90-Day Assess Psychosocial - Final Assessmen Patient Health Questionnaire 30-Day Re-eval Assessment 1. Little interest or pleasure in doing things: Several days 2. Feeling down, depressed, or hopeless: Several days 3. Trouble falling or staying asleep, or sleeping too much: Not at all 4. Feeling tired or having little energy: Several days 5. Poor appetite or overeating: Several days 6. Feeling bad about yourself -- or that you are a failure or have let yourself or your family down: Several days 7. Trouble concentrating on things, such as reading the newspaper or watching television: Not at all 8. Moving or speaking so slowly that other people could have noticed. Or the opposite - being so fidgety or restless that you have been moving around a lot more than usual: Not at all 9. Thoughts that you would be better off , or of hurting yourself in some way: Not at all How difficult have these problems made it for you to do your work, take care of things at home, or get along with other people?: Not difficult at all Total Score: 5 Self-Efficacy 30-Day Re-eval Assessment We would like to know how confident you are in doing certain activities. Please select your confidence level for:: Select your confidence level for the following using the scale 1-10 where 1 is not at all confident and 10 is totally confident. Your score is the average of all 6 responses. Fatigue: How confident are you that you can keep the fatigue caused by your disease from interfering with the things you want to do? Select Number: 8 Physical Discomfort or Pain: How confident are you that you can keep the physical discomfort or pain of your disease from interfering with the things you want to do? Select Number: 8 Emotional Distress: How confident are you that you can keep the emotional distress caused by your disease from interfering with the things you want to do? Select Number: 8 Other Symptoms or Health Problems: How confident are you that you can keep other symptoms or health problems from interfering with the things you want to do? Select Number: 9 Different Tasks and Activities: How confident are you that you can do the different tasks and activities needed to manage your health condition so as to reduce your need to see a doctor? Select Number: 9 Medication: How confident are you that you can do things other than just taking medication to reduce how much your illness affects your everyday life? Select Number: 9 Total Score:: 8 Nutrition Survey
[2021-11-15 08:49] VITALS: BP 124/60; BMI 26.9
== END 2021-11-21 23:59 ==
LOC: CR 08:00
PROVIDERS: PCP Family Medicine; Visit Provider Internal Medicine Cardiovascular Disease
DX: I25.10 Atherosclerotic heart disease of native coronary artery without angina pectoris (principal); Z95.5 Presence of coronary angioplasty implant and graft
CPT/HCPCS: 93798

== ENCOUNTER 2021-11-07 11:54 | Emergency (ER) | payer MEDICARE, OTHER, SELFPAY ==
[2021-10-15 09:14] VITALS: BMI 27.4
[2021-11-07 11:56] VITALS: BP 157/105; PULSE 65; RESP 14; TEMP 36.8; O2SAT 95; BMI 26.9
--- NOTE | 2021-11-07 12:24 | EDS_ITS ---
HPI History of Present Illness Chief Complaint: Male Pain/Injury Pain Onset: Days (3) Context: Sudden Onset Timing: Continuous Worsened by: Nothing Relieved by: Nothing Urinary Symptoms Genitourinary Symptoms: Frequency, Burning, Dysuria and Hematuria Narrative Narrative: Patient presents with hematuria and burning with urination that has been getting worse over the last 3 days. Patient states it is gradually gotten worse. Patient states nothing makes it better nothing makes it worse. Patient admits to some urinary frequency. Patient denies any fevers or chills. Patient denies any back pain. Patient denies any nausea or vomiting. Patient is on Coumadin, Plavix, and aspirin. Patient has had some recent cardiac stents placed approximately 1 month ago. Patient states he has been passing some clots as well. 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 Nonrheumatic aortic (valve) stenosis Nonrheumatic mitral valve regurgitation SERGO (obstructive sleep apnea) Paroxysmal A-fib Right inguinal hernia ST elevation (STEMI) myocardial infarction Stented coronary artery (10/01/21) Thymoma, malignant Wears glasses Wears partial dentures Home Medications nitroglycerin 0.4 mg sublingual tablet 0.4 mg sublingual Q5-15M PRN chest pain #25 tabs 12/21/18 [Rx Last Taken Unknown] lysine 500 mg tablet 500 mg PO DAILY supplement 06/09/19 [History Last Taken 09/18/21] aspirin 81 mg tablet,delayed release 81 mg PO DAILY heart health 11/19/19 [History Last Taken 10/01/21] finasteride 5 mg tablet 5 mg PO DAILY #90 tabs 11/21/19 [Rx Last Taken 09/18/21] cholecalciferol (vitamin D3) 25 mcg (1,000 unit) tablet 25 mcg PO DAILY vitamin 06/27/21 [History Last Taken 09/18/21] cyanocobalamin (vitamin B-12) 1,000 mcg tablet (Vitamin B-12) 1,000 mcg PO DAILY vitamin 06/27/21 [History Last Taken 09/18/21] multivitamin 1 tab PO DAILY vitamin 07/31/21 [History Last Taken 09/18/21] rosuvastatin 5 mg tablet 5 mg PO DAILY cholesterol 07/31/21 [History Last Taken 09/17/21] amiodarone 200 mg tablet 100 mg PO DAILY #35 tabs 09/30/21 [Rx Last Taken 10/01/21] acetaminophen 500 mg tablet 1,000 mg PO TID PRN Pain 10/09/21 [History Last Taken Unknown] amlodipine 5 mg tablet 5 mg PO .PRN PRN blood pressure greater 140/90 mmHg #90 tabs 10/09/21 [Rx Last Taken Unknown] levothyroxine 88 mcg tablet 88 mcg PO DAILY 10/09/21 [History Last Taken Unknown] warfarin 5 mg tablet 5 mg PO QODAY blood thinner 10/09/21 [History Last Taken Unknown] warfarin 7.5 mg tablet 7.5 mg PO QODAY blood thinner 10/09/21 [History Last Taken Unknown] carvedilol 12.5 mg tablet (Coreg) 12.5 mg PO BID #180 tabs 10/22/21 [Rx Last Taken Unknown] nitrofurantoin monohydrate/macrocrystals 100 mg capsule 100 mg PO Q12 #10 CAPSULES 11/07/21 [Rx Last Taken Unknown] ticagrelor 90 mg tablet (Brilinta) 1 tab PO BID 11/07/21 [History Last Taken U nknown] Allergy/AdvReac Type Severity Reaction Status Date / Time cefuroxime Allergy Intermediate Rash Verified 11/07/21 11:56 rosuvastatin [From Crestor] AdvReac Severe severe Verified 11/07/21 11:56 myalgias lisinopril AdvReac Intermediate didn't Verified 11/07/21 11:56 control bp well, labile cephalexin AdvReac Pain in Verified 11/07/21 11:56 joints levofloxacin [From Levaquin] AdvReac achiness Verified 11/07/21 11:56 Family History Father Heart disease Hypertension Mother CVA (cerebral vascular accident) Brother Cancer Hypertension Sister Cancer Hypertension Surgical History H/O right and left heart catheterization (11/12/18) History of arthroscopy of left knee History of cardiac catheterization History of hernia repair History of partial knee replacement History of thymectomy (04/23/17) History of tonsillectomy History of transurethral resection of prostate Presence of coronary angioplasty implant and graft (~09/14/21) Social History Smoking Status: Never smoker alcohol intake: never substance use type: does not use caffeine: No ROS ROS ED Constitutional Constitutional ED: Denies chills or fever(s) Eyes Eyes: Denies blurry vision or change in vision ENT ENT ED: Denies rhinorrhea or sore throat Cardiovascular Cardiovascular: Denies chest pain or palpitations Respiratory/Chest Respiratory/Chest: Denies cough or dyspnea Gastrointestinal Gastrointestinal: Denies nausea or vomiting Genitourinary Genitourinary ED: Reports dysuria, hematuria and urinary frequency Musculoskeletal Musculoskeletal: Denies back pain or neck pain Integumentary Denies abscess or rash Neurologic Neurologic: Denies headache(s) or weakness Allergic/Immunologic Allergic/Immunologic ED: Denies mouth swelling or urticaria EXAM Physical Exam Const Vital Signs: 11/07/21 11:56 Temperature 98.2 F Temperature Source Temporal Pulse Rate 65 Respiratory Rate 14 Blood Pressure 157/105 H Blood Pressure Mean 122 Pulse Ox 95 Oxygen Delivery Method Room Air Positive well nourished and well developed General Appearance ED: well developed HEENT Reports moist mucous membranes Neck supple and no JVD Resp normal respiratory effort and clear to auscultation bilaterally Cardio regular rate, regular rhythm and no murmurs GI normal to inspection, nondistended, normoactive bowel sounds Palpation: soft and tender suprapubic; Negative for guarding Extremity normal to inspection General Extremety ED: Negative for edema or tenderness General Extremity: Negative for edema Neuro oriented x3, CN's II-XII intact bilaterally and no sensory deficits noted Sensorium / Orientation: alert Motor Exam: strength 5/5 throughout Psych mental status grossly normal Skin no rashes or lesions noted MDM MDM MDM Narrative Medical decision making narrative: CBC was within normal limits. Comprehensive metabolic profile was essentially within normal limits. PT with INR was therapeutic at 2.8. Urinalysis shows leukocyte esterase of 100. There were 50-100 red blood cells. There is 10-25 white blood cells. There is 1+ bacteria. Urine culture was ordered. Patient was given a dose of Macrobid here. Patient was given a prescription for Macrobid. Bladder scan was performed. There was 450 cc of urine noted. Because of this, Espinoza catheter was placed. There was good return of bloody urine. Patient was given a leg bag. Patient was instructed to follow-up with his primary care physician in 2-3 days for catheter removal. Patient understood and was agreeable with the plan. All questions were answered. Lab Data Attestation: I reviewed the patient's lab results. Labs: Laboratory Results - last 24 hr 11/07/21 11/07/21 11/07/21 13:00 13:05 13:05 WBC 7.6 RBC 4.50 L Hgb 13.2 Hct 40.1 MCV 89.1 MCH 29.3 MCHC 32.9 RDW Std Deviation 50.5 H RDW Coeff of Eddie 15.5 H Plt Count 326 MPV 9.2 Immature Gran % (Auto) 0.400 Neut % (Auto) 73.8 H Lymph % (Auto) 14.0 L [place] % (Auto) 8.0 Eos % (Auto) 3.3 Baso % (Auto) 0.5 Absolute Neuts (auto) 5.6 Absolute Lymphs (auto) 1.07 Nucleated RBC % 0 PT 29.3 H INR 2.8 Sodium Potassium Chloride Carbon Dioxide Anion Gap BUN Creatinine Estim Creat Clear Calc Est GFR (MDRD) Af Amer Est GFR (MDRD) Non-Af BUN/Creatinine Ratio Glucose Calcium Total Bilirubin AST ALT Alkaline Phosphatase Total Protein Albumin Globulin Albumin/Globulin Ratio Urine Color Red Urine Clarity Turbid Urine pH 7.0 Ur Specific [place] 1.010 Urine Protein 500 H Urine Glucose (UA) Normal Urine Ketones 5 H Urine Occult Blood 250 H Urine Nitrite Negative Urine Bilirubin Negative Urine Urobilinogen Normal Ur Leukocyte Esterase 100 H Urine RBC 50-100 SEEN Urine WBC 10-25 SEEN Ur Squamous Epith Cells 0-5 SEEN Urine Bacteria 1+ Urine Mucus 0 SEEN 11/07/21 13:05 WBC RBC Hgb Hct MCV MCH MCHC RDW Std Deviation RDW Coeff of Eddie Plt Count MPV Immature Gran % (Auto) Neut % (Auto) Lymph % (Auto) [place] % (Auto) Eos % (Auto) Baso % (Auto) Absolute Neuts (auto) Absolute Lymphs (auto) Nucleated RBC % PT INR Sodium 139 Potassium 4.0 Chloride 109 H Carbon Dioxide 25.0 Anion Gap 5 BUN 19 H Creatinine 0.97 Estim Creat Clear Calc 53.40 Est GFR (MDRD) Af Amer 96 Est GFR (MDRD) Non-Af 80 BUN/Creatinine Ratio 19.6 Glucose 84 Calcium 9.4 Total Bilirubin 0.70 AST 14 L ALT 20 Alkaline Phosphatase 65 Total Protein 7.6 Albumin 3.9 Globulin 3.7 Albumin/Globulin Ratio 1.1 Urine Color Urine Clarity Urine pH Ur Specific [place] Urine Protein Urine Glucose (UA) Urine Ketones Urine Occult Blood Urine Nitrite Urine Bilirubin Urine Urobilinogen Ur Leukocyte Esterase Urine RBC Urine WBC Ur Squamous Epith Cells Urine Bacteria Urine Mucus Discharge Plan Triage Chief Complaint: Male Pain/Injury ED Provider: Shawn Rodriguez Dx/Rx/DC Orders Clinical Impression: Hematuria, Urinary tract infection Instructions: ED Hematuria, ED Bladder Infection, Male (Adult) Prescriptions: New nitrofurantoin monohyd/m-cryst [nitrofurantoin monohyd/m-cryst] 100 mg capsule 100 mg PO Q12 Qty: 10 0RF No Action lysine 500 mg tablet 500 mg PO DAILY nitroglycerin 0.4 mg tablet, sublingual 0.4 mg SUBLINGUAL Q5-15M PRN (Reason: chest pain) Qty: 25 3RF Rx Instructions: until response; do not exceed 3 doses per episode warfarin 7.5 mg tablet 7.5 mg PO QODAY Label Comments: pt was told to stop today 11/07/21 Rx Instructions: Managed by PCP multivitamin Tablet 1 tab PO DAILY cholecalciferol (vitamin D3) 25 mcg (1,000 unit) tablet 25 mcg PO DAILY cyanocobalamin (vitamin B-12) [Vitamin B-12] 1,000 mcg tablet 1,000 mcg PO DAILY amiodarone 200 mg tablet 100 mg PO DAILY Qty: 35 0RF levothyroxine 88 mcg tablet 88 mcg PO DAILY acetaminophen 500 mg tablet 1,000 mg PO TID PRN (Reason: Pain) Rx Instructions: Do not take more than 3000 mg Tylenol in a 24-hour period. amlodipine 5 mg tablet 5 mg PO .PRN PRN (Reason: blood pressure greater 140/90 mmHg) Qty: 90 0RF aspirin 81 MG tablet,delayed release (DR/EC) 81 mg PO DAILY Label Comments: will stop 5days before surgery per dr Gonzales's instructions finasteride 5 MG tablet 5 mg PO DAILY Qty: 90 3RF warfarin 5 mg tablet 5 mg PO QODAY Label Comments: was told to stop warfain today 11/07/21 Rx Instructions: Managed by PCP Brilinta 90 mg tablet 1 tab PO BID rosuvastatin 5 mg tablet 5 mg PO DAILY carvedilol [Coreg] 12.5 mg tablet 12.5 mg PO BID Qty: 180 3RF Rx Instructions: must administer with a meal/food Primary Care Provider: Tapan Cornelius Referrals: Tapan Cornelius MD [Primary Care Provider] - 3-5 Days Disposition Disposition: Home, Self Care
[2021-11-07 13:16] LABS: Mucous, Urine 0 SEEN /hpf (<or=2+)
[2021-11-07 13:20] LABS: Absolute Lymphocyte Count 1.07 X10^3/uL (0.83-4.51); Absolute Neutrophil Count 5.6 X10^3/uL (2.0-7.7); Basophil# 0.04 X10^3/uL; Basophil% 0.5 % (0-1); Eosinophil# 0.25 X10^3/uL; Eosinophils% 3.3 % (0-5); Hematocrit 40.1 % (40-54); Hemoglobin 13.2 g/dL (13.0-16.5); Lymphocyte # 1.07 X10^3/ul (0.83-4.51); Mean Corp Hgb Conc 32.9 g/dL (32-36); Mean Corpuscular Hgb 29.3 pg (27.0-32.0); Mean Corpuscular Volume 89.1 fL (80-94); Mean Platelet Vol. 9.2 fl (6.2-12.0); Monocyte# 0.61 X10^3/uL; NRBC Flagged by Analyzer 0 % (0-5); Neutrophil # 5.62 X10^3/uL (2.7-7.7); Neutrophil % 73.8 % (47-70); Platelet Count 326 K/mm3 (150-450); RBC Distribution Width CV 15.5 % (11.6-14.6); RBC Distribution Width SD 50.5 fl (35.1-43.9); White Blood Count 7.6 K/mm3 (4.4-11.0)
[2021-11-07 13:22] LABS: Color, Urine Red (Yellow); Glucose, Dipstick Normal (Normal); Ketone-Dipstick 5 mg/dl (Negative); Leukocyte Esterase-Dipstick 100 /ul (Negative); Nitrite-Dipstick Negative (Negative); Occult Blood-Urine 250 /ul (Negative); Protein-Dipstick 500 mg/dl (Negative); Urine Bilirubin Dipstick Negative (Negative); Urine Clarity Turbid (Clear); Urine Urobilinogen Normal (Normal)
[2021-11-07 13:27] LABS: Red Blood Cells-Urine 50-100 SEEN /hpf (0-5)
[2021-11-07 13:28] LABS: Bacteria 1+ /hpf (None Seen); Squamous Epithelial Cells - UA 0-5 SEEN /hpf (0-5); White Blood Cells 10-25 SEEN /hpf (0-5)
[2021-11-07 13:32] LABS: International Normalized Ratio 2.8; Prothrombin Time (Protime)PT. 29.3 SECONDS (11.7-14.9)
[2021-11-07 13:33] LABS: ALB/GLOB Ratio 1.1 RATIO (0.9-2.4); AST(SGOT) 14 U/L (15-37); Alanine Aminotransfer ALT/SGPT 20 U/L (16-61); Albumin, Serum 3.9 g/dL (3.2-5.0); Alkaline Phosphatase 65 U/L (45-117); Anion Gap 5 (5-15); BUN 19 mg/dL (7-18); BUN/Creat Ratio 19.6 RATIO (10-20); Calcium,Total 9.4 mg/dL (8.5-10.1); Chloride 109 mmol/L (98-107); Creatinine, Serum 0.97 mg/dL (0.70-1.30); EST Glomerular Filtration Rate 80 mL/min (>60); Est Glom Filt Rate - Afr Amer 96 mL/min (>60); Globulin 3.7 g/dL (2.2-4.2); Glucose 84 mg/dL (74-106); Protein, Total 7.6 g/dL (6.4-8.2); Sodium Level 139 mmol/L (136-145)
[2021-11-07] MEDS: Nitrofurantoin Macrocrystals 100 MG Capsule PO (13:48)
[2021-11-07] MEDS: Lidocaine Jelly 2% 20 ML Syringe (URO-JET) 1 APPLIC TOPICAL (13:48)
[2021-11-07 14:27] VITALS: BP 162/89; PULSE 50; RESP 16; O2SAT 97
== END 2021-11-07 14:49 | disposition home or self-care (01) ==
PROVIDERS: Emergency Provider Emergency Medicine; PCP Family Medicine; Visit Provider Emergency Medicine
DX: R31.9 Hematuria, unspecified (principal); I48.0 Paroxysmal atrial fibrillation; N39.0 Urinary tract infection, site not specified; I10 Essential (primary) hypertension; I25.10 Atherosclerotic heart disease of native coronary artery without angina pectoris; E78.00 Pure hypercholesterolemia, unspecified; G47.33 Obstructive sleep apnea (adult) (pediatric); I25.2 Old myocardial infarction; M19.90 Unspecified osteoarthritis, unspecified site; E03.9 Hypothyroidism, unspecified; Z79.82 Long term (current) use of aspirin; Z79.899 Other long term (current) drug therapy; Z79.01 Long term (current) use of anticoagulants
CPT/HCPCS: 51702; 80053; 81001; 85025; 85610; 87086; A4216

== ENCOUNTER 2021-11-07 20:33 | Emergency (ER) | payer MEDICARE, OTHER, SELFPAY ==
[2021-10-15 09:14] VITALS: BMI 27.4
[2021-11-07 20:35] VITALS: BP 129/83; PULSE 54; RESP 15; TEMP 36.6; O2SAT 98; BMI 26.6
--- NOTE | 2021-11-07 21:35 | EDS_ITS ---
HPI History of Present Illness Chief Complaint: Complaint Detail of Chief Complaint: Unable to urinate. Catheter obstructed by blood. Informant: patient and spouse/S.O. Pain Onset: Today and Hours Timing: Continuous Current Severity: Mild Maximum Severity: Mild Narrative Narrative: 75-year-old male history of 3 prior prostate surgery Zalasta a TURP procedure. Today he presented earlier to the emergency department was diagnosed with urinary tract infection and hematuria. IDET [place] Espinoza catheter placed. He is done well pulmonary 1 home the catheter obstructed by the blood and clots and he is returning because its not draining now. He does have a history of coronary disease and is on Brilinta, Coumadin and aspirin. They did hold his Coumadin today. He denies any other complaints. He has had this happen before. 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 Nonrheumatic aortic (valve) stenosis Nonrheumatic mitral valve regurgitation SERGO (obstructive sleep apnea) Paroxysmal A-fib Right inguinal hernia ST elevation (STEMI) myocardial infarction Stented coronary artery (10/01/21) Thymoma, malignant Wears glasses Wears partial dentures Home Medications nitroglycerin 0.4 mg sublingual tablet 0.4 mg sublingual Q5-15M PRN chest pain #25 tabs 12/21/18 [Rx Last Taken Unknown] lysine 500 mg tablet 500 mg PO DAILY supplement 06/09/19 [History Last Taken 09/18/21] aspirin 81 mg tablet,delayed release 81 mg PO DAILY heart health 11/19/19 [History Last Taken 10/01/21] finasteride 5 mg tablet 5 mg PO DAILY #90 tabs 11/21/19 [Rx Last Taken 09/18/21] cholecalciferol (vitamin D3) 25 mcg (1,000 unit) tablet 25 mcg PO DAILY vitamin 06/27/21 [History Last Taken 09/18/21] cyanocobalamin (vitamin B-12) 1,000 mcg tablet (Vitamin B-12) 1,000 mcg PO DAILY vitamin 06/27/21 [History Last Taken 09/18/21] multivitamin 1 tab PO DAILY vitamin 07/31/21 [History Last Taken 09/18/21] rosuvastatin 5 mg tablet 5 mg PO DAILY cholesterol 07/31/21 [History Last Taken 09/17/21] amiodarone 200 mg tablet 100 mg PO DAILY #35 tabs 09/30/21 [Rx Last Taken 10/01/21] acetaminophen 500 mg tablet 1,000 mg PO TID PRN Pain 10/09/21 [History Last Taken Unknown] amlodipine 5 mg tablet 5 mg PO .PRN PRN blood pressure greater 140/90 mmHg #90 tabs 10/09/21 [Rx Last Taken Unknown] levothyroxine 88 mcg tablet 88 mcg PO DAILY 10/09/21 [History Last Taken Unknown] warfarin 5 mg tablet 5 mg PO QODAY blood thinner 10/09/21 [History Last Taken Unknown] warfarin 7.5 mg tablet 7.5 mg PO QODAY blood thinner 10/09/21 [History Last Taken Unknown] carvedilol 12.5 mg tablet (Coreg) 12.5 mg PO BID #180 tabs 10/22/21 [Rx Last Taken Unknown] nitrofurantoin monohydrate/macrocrystals 100 mg capsule 100 mg PO Q12 #10 CAPSULES 11/07/21 [Rx Last Taken Unknown] ticagrelor 90 mg tablet (Brilinta) 1 tab PO BID 11/07/21 [History Last Taken Unknown] Allergy/AdvReac Type Severity Reaction Status Date / Time cefuroxime Allergy Intermediate Rash Verified 11/07/21 11:56 rosuvastatin [From Crestor] AdvReac Severe severe Verified 11/07/21 11:56 myalgias lisinopril AdvReac Intermediate didn't Verified 11/07/21 11:56 control bp well, labile cephalexin AdvReac Pain in Verified 11/07/21 11:56 joints levofloxacin [From Levaquin] AdvReac achiness Verified 11/07/21 11:56 Family History Father Heart disease Hypertension Mother CVA (cerebral vascular accident) Brother Cancer Hypertension Sister Cancer Hypertension Surgical History H/O right and left heart catheterization (11/12/18) History of arthroscopy of left knee History of cardiac catheterization History of hernia repair History of partial knee replacement History of thymectomy (04/23/17) History of tonsillectomy History of transurethral resection of prostate Presence of coronary angioplasty implant and graft (~09/14/21) Social History Smoking Status: Never smoker alcohol intake: never substance use type: does not use caffeine: No ROS ROS ED ROS Narrative Denies recent illness. Hematuria. Review of Systems ROS Unobtainable: Denies due to encephalopathy Constitutional Constitutional ED: Denies chills Eyes Eyes: Denies blurry vision ENT ENT ED: Denies ear pain Cardiovascular Cardiovascular: Denies chest pain Respiratory/Chest Respiratory/Chest: Denies cough Gastrointestinal Gastrointestinal: Denies abdominal pain Genitourinary Genitourinary ED: Reports hematuria; Denies dysuria Musculoskeletal Musculoskeletal: Denies arthralgias Integumentary Denies abscess Neurologic Neurologic: Denies headache(s) Psychiatric Psychiatric: Denies anxiety Endocrine Endocrinology: Denies polydipsia Hematologic/Lymphatic Hematologic/Lymphatic: Denies easy bleeding Allergic/Immunologic Allergic/Immunologic ED: Denies mouth swelling EXAM Physical Exam Narrative Exam Narrative: Well. 75-year male no acute distress. Vital signs stable afebrile. H EENT exam unremarkable. Lungs are clear. Heart rate about 60. Abdomen soft. Nondistended normal bowel sounds no peritoneal signs.* exam circumcised male. Espinoza catheter in place. Is an 18 [place] Espinoza catheter currently is obstructed by blood and clots. Moving all 4 extremities. Nontender no edema. Const Vital Signs: 11/07/21 20:35 Temperature 97.9 F Temperature Source Temporal Pulse Rate 54 L Respiratory Rate 15 Blood Pressure 129/83 H Blood Pressure Mean 98 Pulse Ox 98 Oxygen Delivery Method Room Air Positive well nourished and well developed; Negative for obese, cachectic, contractures or unkempt General Appearance ED: well developed; Negative for unkempt, cachectic, contractures or pallor Nutritional Appearance: Negative for cachectic or obese HEENT Reports moist mucous membranes; Denies dry mucous membranes normocephalic and atraumatic; Negative for trauma or tenderness Mouth ED: No dry mucous membranes Mouth: No dry mucous membranes Eyes PERRL and EOMs intact bilaterally General Eye ED: Negative for pale conjunctiva or scleral icterus Neck no lymphadenopathy, supple and no JVD Resp normal respiratory effort and clear to auscultation bilaterally Cardio Negative for regular rate, S1 normal heart sound or no murmurs Cardio Narrative: Heart rate about 60. 4 6 systolic ejection murmur. Appears to be in A. fib. GI non-tender, non-distended and no masses Inspection: Negative for abdominal distention Auscultation: normoactive bowel sounds Palpation: soft; Negative for tender, guarding, hepatomegaly or splenomegaly no CVA tenderness Groin / Perineum Exam: Negative for edema Back/Spine no CVA tenderness Extremity normal to inspection General Extremety ED: Negative for edema General Extremity: Negative for edema Neuro oriented x3, moves all extremities and no focal motor deficits Sensorium / Orientation: alert, oriented to person, oriented to place and oriented to time; Negative for orientation impaired, confused, lethargic or stuporous Motor Exam: strength 5/5 throughout Psych mental status grossly normal Appearance: Negative for unkempt Skin General Skin Exam: Negative for jaundice or pallor Rashes: no rashes MDM MDM MDM Narrative Medical decision making narrative: 75-year-old male is seen emergency department earlier today. Diagnosed with UTI and hematuria. Now has an obstructed 18 [place] Espinoza catheter. That will be removed. We will place a 22 [place] Espinoza catheter and irrigated. I did review his labs from earlier today. He is on Coumadin his INR is 2.8 and they held that. Repeat exam patient is doing well at 10:35 PM. Nurse placed in 22 [place] Espinoza catheter. Draining well. Irrigated with a liter normal saline. Still blood- tinged urine but there is not gross clots or gross blood. Patient and are comfortable with him being discharged home. They will follow-up with his urologist. Return if worse. He is already been written for an antibiotic from his prior ER visit and he will hold his Coumadin for the next several days. Lab Data Attestation: I reviewed the patient's lab results. Lab results narrative: I did review the patient's labs from earlier today. CBC unremarkable. Ch emistries unremarkable. Normal creatinine. Urinalysis consistent with UTI. He is on Coumadin his INR was 2.8. Discharge Plan Triage Chief Complaint: Complaint ED Provider: Seth Laboy Dx/Rx/DC Orders Prescriptions: No Action lysine 500 mg tablet 500 mg PO DAILY nitroglycerin 0.4 mg tablet, sublingual 0.4 mg SUBLINGUAL Q5-15M PRN (Reason: chest pain) Qty: 25 3RF Rx Instructions: until response; do not exceed 3 doses per episode warfarin 7.5 mg tablet 7.5 mg PO QODAY Label Comments: pt was told to stop today 11/07/21 Rx Instructions: Managed by PCP multivitamin Tablet 1 tab PO DAILY cholecalciferol (vitamin D3) 25 mcg (1,000 unit) tablet 25 mcg PO DAILY cyanocobalamin (vitamin B-12) [Vitamin B-12] 1,000 mcg tablet 1,000 mcg PO DAILY amiodarone 200 mg tablet 100 mg PO DAILY Qty: 35 0RF levothyroxine 88 mcg tablet 88 mcg PO DAILY acetaminophen 500 mg tablet 1,000 mg PO TID PRN (Reason: Pain) Rx Instructions: Do not take more than 3000 mg Tylenol in a 24-hour period. amlodipine 5 mg tablet 5 mg PO .PRN PRN (Reason: blood pressure greater 140/90 mmHg) Qty: 90 0RF aspirin 81 MG tablet,delayed release (DR/EC) 81 mg PO DAILY Label Comments: will stop 5days before surgery per dr Gonzales's instructions finasteride 5 MG tablet 5 mg PO DAILY Qty: 90 3RF warfarin 5 mg tablet 5 mg PO QODAY Label Comments: was told to stop warfain today 11/07/21 Rx Instructions: Managed by PCP Brilinta 90 mg tablet 1 tab PO BID nitrofurantoin monohyd/m-cryst [nitrofurantoin monohyd/m-cryst] 100 mg capsule 100 mg PO Q12 Qty: 10 0RF rosuvastatin 5 mg tablet 5 mg PO DAILY carvedilol [Coreg] 12.5 mg tablet 12.5 mg PO BID Qty: 180 3RF Rx Instructions: must administer with a meal/food Primary Care Provider: Tapan Cornelius Referrals: Tapan Cornelius MD [Primary Care Provider] -
[2021-11-07] MEDS: Lidocaine Jelly 2% 20 ML Syringe (URO-JET) 1 APPLIC TOPICAL (22:24)
[2021-11-07 22:37] VITALS: BP 144/77; PULSE 50; RESP 14; O2SAT 96
--- NOTE | 2021-11-07 22:44 | ED.RN ---
16F [address] CATHETER REPLACED WITH [address] PER VO DR SAMUELS. STERILE TECHNIQUE USED. CLOSED LOOP MAINTAINED. IRRIGATED WITH 1000ML NS. PATIENT TOLERATED PROCEEDURE WELL.
== END 2021-11-07 22:49 | disposition home or self-care (01) ==
PROVIDERS: Emergency Provider Emergency Medicine; PCP Family Medicine; Visit Provider Emergency Medicine
DX: T83.091A Other mechanical complication of indwelling urethral catheter, initial encounter (principal); I48.0 Paroxysmal atrial fibrillation; N39.0 Urinary tract infection, site not specified; R30.0 Dysuria; G47.33 Obstructive sleep apnea (adult) (pediatric); I25.2 Old myocardial infarction; M19.90 Unspecified osteoarthritis, unspecified site; E03.9 Hypothyroidism, unspecified; R31.9 Hematuria, unspecified; I10 Essential (primary) hypertension; I25.10 Atherosclerotic heart disease of native coronary artery without angina pectoris; E78.00 Pure hypercholesterolemia, unspecified; Z79.82 Long term (current) use of aspirin; Z79.899 Other long term (current) drug therapy; Z79.01 Long term (current) use of anticoagulants; X58.XXXA Exposure to other specified factors, initial encounter
CPT/HCPCS: 51702; 80053; 81001; 85025; 85610; 87086; 99282; 99284; J7030; A4216

== ENCOUNTER 2021-11-18 14:17 | Emergency (ER) | payer MEDICARE, OTHER, SELFPAY ==
[2021-11-18 14:18] VITALS: BP 156/80; PULSE 72; RESP 18; TEMP 36.6; O2SAT 96; BMI 26.6
--- NOTE | 2021-11-18 15:17 | EX.ED.DYSGE1 ---
HPI History of Present Illness Chief Complaint: Other, Pain/Inj Informant: patient and spouse/S.O. Onset/Context/Timing Onset: Today Current Severity: Mild Maximum Severity: Severe Narrative Narrative: Patient presents with sharp pain along the right groin line that woke him up from sleep at 5 AM this morning. Is been intermittent throughout the day. Patient has had a Espinoza catheter in the last 10 days secondary to hematuria and retention. This was removed in Dr. Briones's office this afternoon. Patient was sent for a CT scan. Family was then sent to the emergency room for evaluation. He has not been able to urinate since the Espinoza catheter was removed. The pain in the groin was present before the Espinoza catheter was removed. Patient had previously been on Coumadin secondary to paroxysmal A. fib, but with his recent hematuria this has been held. 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 Nonrheumatic aortic (valve) stenosis Nonrheumatic mitral valve regurgitation SERGO (obstructive sleep apnea) Paroxysmal A-fib Right inguinal hernia ST elevation (STEMI) myocardial infarction Stented coronary artery (10/01/21) Thymoma, malignant Wears glasses Wears partial dentures Home Medications nitroglycerin 0.4 mg sublingual tablet 0.4 mg sublingual Q5-15M PRN chest pain #25 tabs 12/21/18 [Rx Last Taken Unknown] lysine 500 mg tablet 500 mg PO DAILY supplement 06/09/19 [History Last Taken 09/18/21] aspirin 81 mg tablet,delayed release 81 mg PO DAILY heart health 11/19/19 [History Last Taken 10/01/21] finasteride 5 mg tablet 5 mg PO DAILY #90 tabs 11/21/19 [Rx Last Taken 09/18/21] cholecalciferol (vitamin D3) 25 mcg (1,000 unit) tablet 25 mcg PO DAILY vitamin 06/27/21 [History Last Taken 09/18/21] cyanocobalamin (vitamin B-12) 1,000 mcg tablet (Vitamin B-12) 1,000 mcg PO DAILY vitamin 06/27/21 [History Last Taken 09/18/21] multivitamin 1 tab PO DAILY vitamin 07/31/21 [History Last Taken 09/18/21] rosuvastatin 5 mg tablet 5 mg PO DAILY cholesterol 07/31/21 [History Last Taken 09/17/21] amiodarone 200 mg tablet 100 mg PO DAILY #35 tabs 09/30/21 [Rx Last Taken 10/01/21] acetaminophen 500 mg tablet 1,000 mg PO TID PRN Pain 10/09/21 [History Last Taken Unknown] amlodipine 5 mg tablet 5 mg PO .PRN PRN blood pressure greater 140/90 mmHg #90 tabs 10/09/21 [Rx Last Taken Unknown] levothyroxine 88 mcg tablet 88 mcg PO DAILY 10/09/21 [History Last Taken Unknown] carvedilol 12.5 mg tablet (Coreg) 12.5 mg PO BID #180 tabs 10/22/21 [Rx Last Taken Unknown] nitrofurantoin monohydrate/macrocrystals 100 mg capsule 100 mg PO Q12 #10 CAPSULES 11/07/21 [Rx Last Taken Unknown] ticagrelor 90 mg tablet (Brilinta) 1 tab PO BID 11/07/21 [History Last Taken Unknown] ciprofloxacin HCl 500 mg tablet (Cipro) 500 mg PO BID #14 tabs 11/18/21 [Rx Last Taken Unknown] oxycodone 5 mg tablet 5 mg PO Q6H PRN pain 3 days #10 tabs 11/18/21 [Rx Last Taken Unknown] Allergy/AdvReac Type Severity Reaction Status Date / Time cefuroxime Allergy Intermediate Rash Verified 11/18/21 14:21 rosuvastatin [From Crestor] AdvReac Severe severe Verified 11/18/21 14:21 myalgias lisinopril AdvReac Intermediate didn't Verified 11/18/21 14:21 control bp well, labile cephalexin AdvReac Pain in Verified 11/18/21 14:21 joints levofloxacin [From Levaquin] AdvReac achiness Verified 11/18/21 14:21 Family History Father Heart disease Hypertension Mother CVA (cerebral vascular accident) Brother Cancer Hypertension Sister Cancer Hypertension Surgical History H/O right and left heart catheterization (11/12/18) History of arthroscopy of left knee History of cardiac catheterization History of hernia repair History of partial knee replacement History of thymectomy (04/23/17) History of tonsillectomy History of transurethral resection of prostate Presence of coronary angioplasty implant and graft (~09/14/21) Social History Smoking Status: Never smoker alcohol intake: never substance use type: does not use caffeine: No ROS ROS ED Constitutional Constitutional ED: Denies chills or fever(s) Eyes Eyes: Denies change in vision or discharge from eye(s) ENT ENT ED: Denies discharge from eye(s), rhinorrhea or sore throat Cardiovascular Cardiovascular: Denies chest pain or palpitations Respiratory/Chest Respiratory/Chest: Denies cough or dyspnea Gastrointestinal Gastrointestinal: Reports abdominal pain and other Details: Right groin pain ; Denies diarrhea, nausea or vomiting Genitourinary Genitourinary ED: Reports difficulty urinating Musculoskeletal Musculoskeletal: Denies back pain or extremity pain Integumentary Denies Abrasions or rash Neurologic Neurologic: Denies headache(s) or weakness Allergic/Immunologic Allergic/Immunologic ED: Denies lip swelling or urticaria EXAM Physical Exam Const Vital Signs: 11/18/21 14:18 11/18/21 17:20 Temperature 98 F Temperature Source Temporal Pulse Rate 72 Respiratory Rate 18 Respiratory Effort Normal Non-Labored Respiratory Pattern Normal Blood Pressure 156/80 H Blood Pressure Mean 105 Pulse Ox 96 Oxygen Delivery Method Room Air Positive well nourished and well developed General Appearance ED: well developed HEENT Reports moist mucous membranes Eyes PERRL and EOMs intact bilaterally Neck no lymphadenopathy Chest Wall inspection of chest normal and palpation of chest normal Resp normal respiratory effort and clear to auscultation bilaterally Cardio regular rate and regular rhythm Heart Sounds: murmur GI GI Narrative: Abdomen soft nontender. No palpable masses along the right groin line. Extremity normal to inspection Neuro oriented x3, CN's II-XII intact bilaterally and no sensory deficits noted Motor Exam: strength 5/5 throughout Psych mental status grossly normal Skin no rashes or lesions noted MDM MDM MDM Narrative Medical decision making narrative: Patient CT scan from today was read by radiology. Lab work and urinalysis obtained. Patient given a dose of oxycodone for pain. Lab Data Attestation: I reviewed the patient's lab results. Labs: Laboratory Results - last 24 hr 11/18/21 11/18/21 11/18/21 15:25 15:25 16:05 WBC 16.9 H RBC 4.35 L Hgb 12.4 L Hct 38.9 L MCV 89.4 MCH 28.5 MCHC 31.9 L RDW Std Deviation 49.2 H RDW Coeff of Eddie 14.9 H Plt Count 388 MPV 8.9 Immature Gran % (Auto) 0.700 Neut % (Auto) 83.7 H Lymph % (Auto) 5.0 L Eagle % (Auto) 9.4 Eos % (Auto) 0.9 Baso % (Auto) 0.3 Absolute Neuts (auto) 14.2 H Absolute Lymphs (auto) 0.85 Nucleated RBC % 0 Differential Comment SEE COMMENT Diff Path Review May foll Platelet Estimate ADEQUATE RBC Morphology N CHROM Anisocytosis RARE Macrocytosis RARE Sodium 135 L Potassium 4.5 Chloride 103 Carbon Dioxide 25.0 Anion Gap 7 BUN 16 Creatinine 1.04 Estim Creat Clear Calc 49.81 Est GFR (MDRD) Af Amer 89 Est GFR (MDRD) Non-Af 73 BUN/Creatinine Ratio 15.4 Glucose 113 H Calcium 9.5 Urine Color Yellow Urine Clarity Sl. Cloudy Urine pH 6.0 Ur Specific Mach[place] 1.010 Urine Protein 30 H Urine Glucose (UA) Normal Urine Ketones Negative Urine Occult Blood 150 H Urine Nitrite Positive H Urine Bilirubin Negative Urine Urobilinogen 1 H Ur Leukocyte Esterase 500 H Urine RBC 10-25 SEEN Urine WBC 5-10 SEEN Ur Squamous Epith Cells 0-5 SEEN Urine Bacteria 1+ Urine Mucus 0 SEEN Radiography Diagnostic Testing: Clinical Impression(s) from Imaging Studies Testicular Ultrasound 11/18/21 15:34 IMPRESSION: Bilateral epididymoorchitis, right worse than left. Moderate right hydrocele. Left-sided varicocele. Simple 5 mm epididymal head cyst. Electronically Signed: Iam Barcenas MD at 16:58 EDT , Treatment and Re-Evaluation Narrative: CBC reveals significant elevation of white count at 16.9 with a left shift. Chemistry studies unremarkable with normal renal function. Urinalysis is positive for nitrates with 5-10 white cells and 1+ bacteria. He does have 10-[address] scan is read as slightly irregular wall thickening of the bladder which could represent cystitis versus malignancy. Diverticulosis and cholelithiasis are also noted. was concerned for possible testicular torsion. In light of this testicular ultrasound was performed that reveals bilateral epididymoorchitis, right greater than left. There is a moderate right hydrocele. Patient will be treated with a course of Cipro for his urine as well as ultrasound findings. He will be given oxycodone for pain. He has been able to urinate while in the emergency room. Discharge Plan Triage Chief Complaint: Other, Pain/Inj ED Provider: Rebecca Hendrickson Dx/Rx/DC Orders Clinical Impression: Cystitis Instructions: ED Bladder Infection, Male (Adult) Prescriptions: New ciprofloxacin HCl [Cipro] 500 mg tablet 500 mg PO BID Qty: 14 0RF oxycodone 5 mg tablet 5 mg PO Q6H PRN (Reason: pain) 3 Days Qty: 10 0RF No Action lysine 500 mg tablet 500 mg PO DAILY nitroglycerin 0.4 mg tablet, sublingual 0.4 mg SUBLINGUAL Q5-15M PRN (Reason: chest pain) Qty: 25 3RF Rx Instructions: until response; do not exceed 3 doses per episode multivitamin Tablet 1 tab PO DAILY cholecalciferol (vitamin D3) 25 mcg (1,000 unit) tablet 25 mcg PO DAILY cyanocobalamin (vitamin B-12) [Vitamin B-12] 1,000 mcg tablet 1,000 mcg PO DAILY amiodarone 200 mg tablet 100 mg PO DAILY Qty: 35 0RF levothyroxine 88 mcg tablet 88 mcg PO DAILY acetaminophen 500 mg tablet 1,000 mg PO TID PRN (Reason: Pain) Rx Instructions: Do not take more than 3000 mg Tylenol in a 24-hour period. amlodipine 5 mg tablet 5 mg PO .PRN PRN (Reason: blood pressure greater 140/90 mmHg) Qty: 90 0RF aspirin 81 MG tablet,delayed release (DR/EC) 81 mg PO DAILY Label Comments: will stop 5days before surgery per dr Gonzales's instructions finasteride 5 MG tablet 5 mg PO DAILY Qty: 90 3RF Brilinta 90 mg tablet 1 tab PO BID nitrofurantoin monohyd/m-cryst [nitrofurantoin monohyd/m-cryst] 100 mg capsule 100 mg PO Q12 Qty: 10 0RF rosuvastatin 5 mg tablet 5 mg PO DAILY carvedilol [Coreg] 12.5 mg tablet 12.5 mg PO BID Qty: 180 3RF Rx Instructions: must administer with a meal/food Primary Care Provider: Tapan Cornelius Referrals: Devon Briones MD [STAFF PHYSICIAN] - 5-7 Days Tapan Cornelius MD [Primary Care Provider] - Disposition Disposition: Home, Self Care
[2021-11-18 15:29] LABS: Absolute Lymphocyte Count 0.85 X10^3/uL (0.83-4.51); Absolute Neutrophil Count 14.2 X10^3/uL (2.0-7.7); Basophil# 0.05 X10^3/uL; Basophil% 0.3 % (0-1); Eosinophil# 0.15 X10^3/uL; Eosinophils% 0.9 % (0-5); Hematocrit 38.9 % (40-54); Hemoglobin 12.4 g/dL (13.0-16.5); Lymphocyte # 0.85 X10^3/ul (0.83-4.51); Mean Corp Hgb Conc 31.9 g/dL (32-36); Mean Corpuscular Hgb 28.5 pg (27.0-32.0); Mean Corpuscular Volume 89.4 fL (80-94); Mean Platelet Vol. 8.9 fl (6.2-12.0); Monocyte# 1.59 X10^3/uL; Monocyte% 9.4 % (0-10); NRBC Flagged by Analyzer 0 % (0-5); Neutrophil # 14.17 X10^3/uL (2.7-7.7); Neutrophil % 83.7 % (47-70); POSITIVE DIFFERENTIAL YES; Platelet Count 388 K/mm3 (150-450); RBC Distribution Width CV 14.9 % (11.6-14.6); RBC Distribution Width SD 49.2 fl (35.1-43.9); Red Blood Count 4.35 M/mm3 (4.6-6.2); White Blood Count 16.9 K/mm3 (4.4-11.0)
--- NOTE | 2021-11-18 15:34 | US_ITS ---
INDICATION: pain-RT GROIN PAIN EXAMINATION: US Scrotum (Contents) TECHNIQUE: Realtime ultrasound of the testicles was performed with grayscale, Color Doppler and spectral Doppler analysis. COMPARISON: None. FINDINGS: RIGHT: TESTIS: Measures 4.9 x 3.3 x 2.7 cm. Heterogeneous in echotexture with a striated appearance, without focal lesion. COLOR DOPPLER: Increased arterial flow present in the testicle with monophasic waveforms. EPIDIDYMIS: Normal in size and echotexture, with a simple 5 mm epididymal head cyst. [Normal color Doppler flow pattern in the epididymis. HYDROCELE: Moderate. VARICOCELE: None. LEFT: TESTIS: Measures of 4.9 x 2.7 x 2 cm. Heterogeneous in echotexture with a striated appearance, without focal lesion. COLOR DOPPLER: Normal arterial flow present in the testicle with monophasic waveforms. EPIDIDYMIS: Normal in size and echotexture, without focal lesion. [Normal color Doppler flow pattern in the epididymis. HYDROCELE: None. VARICOCELE: Yes. US/Testicular with Arterial Flow IMPRESSION: Bilateral epididymoorchitis, right worse than left. Moderate right hydrocele. Left-sided varicocele. Simple 5 mm epididymal head cyst. Electronically Signed: Iam Barcenas MD at 16:58 EDT ,
[2021-11-18 15:49] LABS: Anion Gap 7 (5-15); BUN 16 mg/dL (7-18); BUN/Creat Ratio 15.4 RATIO (10-20); Calcium,Total 9.5 mg/dL (8.5-10.1); Chloride 103 mmol/L (98-107); Creatinine, Serum 1.04 mg/dL (0.70-1.30); EST Glomerular Filtration Rate 73 mL/min (>60); Est Glom Filt Rate - Afr Amer 89 mL/min (>60); Estimated Creatinine Clearance 49.81 ml/min; Glucose 113 mg/dL (74-106); Potassium 4.5 mmol/L (3.5-5.1); Sodium Level 135 mmol/L (136-145)
[2021-11-18 15:54] LABS: Differential Indicated SCAN CRITERIA MET
[2021-11-18] MEDS: oxyCODONE 5 MG Tablet PO (16:09)
[2021-11-18 16:10] LABS: Mucous, Urine 0 SEEN /hpf (<or=2+)
[2021-11-18 16:12] LABS: Color, Urine Yellow (Yellow); Glucose, Dipstick Normal (Normal); Ketone-Dipstick Negative (Negative); Leukocyte Esterase-Dipstick 500 /ul (Negative); Nitrite-Dipstick Positive (Negative); Occult Blood-Urine 150 /ul (Negative); Protein-Dipstick 30 mg/dl (Negative); Urine Bilirubin Dipstick Negative (Negative); Urine Clarity Sl. Cloudy (Clear); Urine Urobilinogen 1 mg/dl (Normal)
[2021-11-18 16:15] LABS: Anisocytosis RARE; Macrocytosis RARE; Platelet Estimate ADEQUATE (ADEQ); Red Cell Morphology N CHROM NORMAL (NORM C&C)
[2021-11-18 16:38] LABS: Bacteria 1+ /hpf (None Seen); Red Blood Cells-Urine 10-25 SEEN /hpf (0-5); Squamous Epithelial Cells - UA 0-5 SEEN /hpf (0-5); White Blood Cells 5-10 SEEN /hpf (0-5)
[2021-11-18 17:48] VITALS: PULSE 70; RESP 16; O2SAT 99
[2021-11-20 10:03] LABS: Pathologist Review Reviewed
== END 2021-11-18 17:51 | disposition home or self-care (01) ==
PROVIDERS: Emergency Provider Emergency Medicine; PCP Family Medicine; Visit Provider Emergency Medicine
DX: N30.91 Cystitis, unspecified with hematuria (principal); I25.10 Atherosclerotic heart disease of native coronary artery without angina pectoris; I10 Essential (primary) hypertension; G47.33 Obstructive sleep apnea (adult) (pediatric); I25.2 Old myocardial infarction; Z95.5 Presence of coronary angioplasty implant and graft; Z79.82 Long term (current) use of aspirin
CPT/HCPCS: 74176; 76870; 80048; 81001; 85025; 93976; 99284; A4216

== ENCOUNTER → 2021-11-18 | Outpatient (CLI) | payer MEDICARE, OTHER, SELFPAY ==
[2021-11-15 08:49] VITALS: BMI 26.9
--- NOTE | 2021-11-18 13:27 | CT_ITS ---
INDICATION: HEMATURIA, UNSPECIFIED EXAMINATION: CT Abdomen And Pelvis W/O Contrast Injection TECHNIQUE: Helically acquired images were obtained of the abdomen and pelvis without the use of IV contrast. A radiation dose optimization technique was used for this scan. Oral contrast: None. COMPARISON: 11/20/2019 FINDINGS: Evaluation of the solid organs and vascular structures is limited without intravenous contrast. Visualized lung bases: Unremarkable Liver: Unremarkable Gallbladder: Few small intraluminal stones seen. Spleen: Unremarkable Pancreas: Unremarkable Adrenal Glands: Unremarkable Kidneys: Simple 5.5 cm cyst in the right lower renal pole. Vasculature: Mild scattered aortoiliac atherosclerotic calcifications. GI Tract: Scattered diverticula throughout the colon without evidence of inflammation. Hiatal hernia. Lymphadenopathy: None Peritoneum: No ascites. Bladder: Slightly irregular wall thickening of the bladder. Reproductive organs: The prostate is mildly enlarged. Bones/Soft tissues: There are diffuse degenerative changes of the spine. CT/Abdomen/Pelvis without Cont IMPRESSION: Slightly irregular wall thickening of the bladder could represent cystitis versus malignancy. Consider cystoscopy. Mild prostatomegaly. Correlate with PSA levels. Diverticulosis. Cholelithiasis. Hiatal hernia. Electronically Signed: Iam Barcenas MD at 16:15 EDT ,
== END | disposition home or self-care (01) ==
PROVIDERS: PCP Family Medicine; Visit Provider Urology
DX: R31.9 Hematuria, unspecified (principal)
CPT/HCPCS: 74176

== ENCOUNTER → 2022-09-10 | Outpatient (CLI) | payer MEDICARE, OTHER, SELFPAY ==
[2022-09-10 10:22] LABS: Absolute Lymphocyte Count 1.19 X10^3/uL (0.83-4.51); Absolute Neutrophil Count 6.3 X10^3/uL (2.0-7.7); Basophil# 0.07 X10^3/uL; Basophil% 0.8 % (0-1); Eosinophil# 0.35 X10^3/uL; Eosinophils% 4.1 % (0-5); Hematocrit 50.3 % (40-54); Hemoglobin 16.1 g/dL (13.0-16.5); Lymphocyte # 1.19 X10^3/ul (0.83-4.51); Lymphocyte % 13.8 % (19-41); Mean Corpuscular Hgb 27.7 pg (27.0-32.0); Mean Corpuscular Volume 86.4 fL (80-94); Mean Platelet Vol. 9.2 fl (6.2-12.0); Monocyte# 0.71 X10^3/uL; Monocyte% 8.3 % (0-10); NRBC Flagged by Analyzer 0 % (0-5); Neutrophil # 6.25 X10^3/uL (2.7-7.7); Neutrophil % 72.7 % (47-70); POSITIVE MORPHOLOGY YES; Platelet Count 402 K/mm3 (150-450); RBC Distribution Width CV 20.4 % (11.6-14.6); RBC Distribution Width SD 61.1 fl (35.1-43.9); Red Blood Count 5.82 M/mm3 (4.6-6.2); White Blood Count 8.6 K/mm3 (4.4-11.0)
[2022-09-10 10:30] LABS: Differential Indicated SCAN CRITERIA MET
--- NOTE | 2022-09-10 10:53 | ECHOD_ITS ---
Reason For Study: Murmur Procedure This was a 2D Doppler, Color Flow transthoracic echocardiogram. Exam performed in department. Left Ventricle Moderate concentric left ventricular hypertrophy. The estimated ejection fraction is 55-60 %. Right Ventricle Normal right ventricle. Normal systolic function. Atria The left atrium is mildly enlarged. Normal right atrium. Mitral Valve There is mild mitral annular calcification. Trivial mitral valve insufficiency. Tricuspid Valve Normal tricuspid valve. Trivial tricuspid valve insufficiency. Aortic Valve Moderate to severe calcific aortic stenosis Aortic valve area 1-1.2 cm Squire Your maximum pressure gradient 43.9 mmHg AO mean pressure gradient 28.2 mmHg. Pulmonic Valve The pulmonic valve is not well visualized. Great Vessels Normal aortic root. Pericardium/Pleural No pericardial effusion. MMode/2D Measurements & Calculations LVIDd: 4.7 cm IVSd: 1.6 cm LVOT diam: 2.0 cm LVIDs: 2.9 cm LVPWd: 1.5 cm LVOT area: 3.0 cm2 RVDd: 3.8 cm FS: 38.9 % Ao root diam: 3.3 cm LAV(MOD-bp): 69.4 ml LVAd ap4: 21.6 cm2 ACS: 0.51 cm LAV(MOD-bp) Indexed: 40.2 ml/m2 LVLd ap4: 8.2 cm LAV(MOD-sp2): 66.5 ml EDV(MOD-sp4): 47.8 ml LAV(MOD-sp4): 62.0 ml EDV(sp4-el): 48.5 ml LVAs ap4: 11.0 cm2 LVLs ap4: 7.3 cm ESV(MOD-sp4): 14.9 ml ESV(sp4-el): 14.2 ml EF(MOD-sp4): 68.8 % EF(sp4-el): 70.7 % SV(MOD-sp4): 32.9 ml SV(sp4-el): 34.3 ml LA A4 area: 20.7 cm2 LA dimension(2D): 4.3 cm RA A4 area: 10.8 cm2 Time Measurements MV dec time: 0.43 sec Doppler Measurements & Calculations MV E max kevin: 67.9 cm/sec Lat Peak E' Kevin: 5.0 cm/sec Med Peak E' Kevin: 4.8 cm/sec MV A max kevin: 91.1 cm/sec E/E' lat: 13.6 E/E' med: 14.2 MV E/A: 0.75 Ao V2 max: 331.3 cm/sec LV V1 max: 111.7 cm/sec MV dec slope: 158.0 cm/sec2 Ao max P.9 mmHg LV V1 max P.0 mmHg Ao V2 mean: 255.6 cm/sec LV V1 mean P.2 mmHg Ao mean P.2 mmHg LV V1 mean: 85.6 cm/sec Ao V2 VTI: 65.6 cm LV V1 VTI: 25.1 cm AV (velocity ratio): 0.38 NADEGE(I,D): 1.2 cm2 NADEGE(V,D): 1.0 cm2 SV(LVOT): 75.8 ml PA V2 max: 121.7 cm/sec PI end-d kevin: 86.0 cm/sec TR max kevin: 263.3 cm/sec TR max P.7 mmHg ECHO/Echo Complete Interpretation Summary The estimated ejection fraction is 55-60 %. Moderate to severe calcific aortic stenosis Aortic valve area 1-1.2 cm Squire Your maximum pressure gradient 43.9 mmHg Trivial A high Mild MR AO mean pressure gradient 28.2 mmHg. No significant change from previous echocardiogram September 16, 2021 Ordering Physician: Jeri Toribio Referring Physician: Jeri Toribio Performed By: Fatimah Kamara, DELMA, RVT
[2022-09-10 10:57] LABS: Vitamin B12 980 pg/mL (211-911); Vitamin D,25 Hydroxy 31.1 ng/mL
[2022-09-10 10:59] LABS: ALB/GLOB Ratio 1.1 RATIO (0.9-2.4); AST(SGOT) 18 U/L (15-37); Alanine Aminotransfer ALT/SGPT 23 U/L (16-61); Albumin, Serum 4.2 g/dL (3.2-5.0); Alkaline Phosphatase 72 U/L (45-117); Anion Gap 3 (5-15); BUN 21 mg/dL (7-18); BUN/Creat Ratio 20.2 RATIO (10-20); Calcium,Total 9.1 mg/dL (8.5-10.1); Chloride 107 mmol/L (98-107); Cholesterol 256 mg/dL (200); Creatinine, Serum 1.04 mg/dL (0.70-1.30); EST Glomerular Filtration Rate 73 mL/min (>60); Est Glom Filt Rate - Afr Amer 89 mL/min (>60); Globulin 3.8 g/dL (2.2-4.2); Glucose 101 mg/dL (74-106); High Density Lipoprotein 79 mg/dL; PSA,Total- Diagnostic 2.99 ng/mL (0.0-4.0); Potassium 4.3 mmol/L (3.5-5.1); Sodium Level 137 mmol/L (136-145); T4 Free Direct 1.15 ng/dL (0.76-1.46); Thyroid Stim Hormone (TSH) 9.99 uIU/mL (0.358-3.74); Triglycerides 98 mg/dL; Very Low Density Lipoprotein 20 mg/dL (5-40)
[2022-09-10 12:12] LABS: Anisocytosis 1+
== END | disposition home or self-care (01) ==
LOC: CVS 10:52
PROVIDERS: Referring Provider Physician Assistant Medical; Visit Provider Physician Assistant Medical
DX: I10 Essential (primary) hypertension (principal); E55.9 Vitamin D deficiency, unspecified; R97.20 Elevated prostate specific antigen [PSA]; I25.10 Atherosclerotic heart disease of native coronary artery without angina pectoris
CPT/HCPCS: 36415; 80053; 80061; 82306; 82607; 84153; 84439; 84443; 85025; 93306

== ENCOUNTER 2022-10-31 08:02 | Outpatient (RCR) | payer MEDICARE, OTHER, SELFPAY ==
[2022-11-03 08:41] LABS: INR Fingerstick 2.1; Prothrombin Time Fingerstick 22.8 SEC (11.7-14.9)
== END 2022-10-31 18:00 | disposition home or self-care (01) ==
LOC: MTLAB 08:02
PROVIDERS: PCP Nurse Practitioner Family; Referring Provider Physician Assistant Medical; Visit Provider Physician Assistant Medical
DX: I25.10 Atherosclerotic heart disease of native coronary artery without angina pectoris (principal)
CPT/HCPCS: 36416; 85610

== ENCOUNTER → 2022-11-04 | Outpatient (CLI) | payer MEDICARE, OTHER, SELFPAY ==
--- NOTE | 2022-11-04 08:29 | ECHOD_ITS ---
Reason For Study: Procedure This was a 2D Doppler, Color Flow transthoracic echocardiogram. Myocardial strain analysis was performed in this exam to aid in the assessment of cardiac function. Exam performed in department. Left Ventricle Normal LV size. Moderate concentric left ventricular hypertrophy. Left ventricular systolic function is normal. The estimated ejection fraction is 60 %. No regional wall motion abnormalities noted. Right Ventricle Normal RV size. Normal systolic function. Atria The left atrium is mildly enlarged. Normal right atrium. Mitral Valve There is moderate mitral annular calcification. Mild (1+) eccentric mitral valve insufficiency. Tricuspid Valve Normal tricuspid valve. Mild tricuspid valve insufficiency. Aortic Valve Trisinus/trileaflet aortic valve. Moderate focal aortic valve thickening. Peak aortic valve gradient 42 mmHg. Mean aortic valve gradient 25 mmHg. Moderate aortic stenosis. Mild (1+) aortic valve insufficiency. Pulmonic Valve Normal pulmonic valve. Great Vessels Normal aortic root. The pulmonary artery is normal size. Normal inferior vena cava. Pericardium/Pleural No pericardial effusion. MMode/2D Measurements & Calculations LVIDd: 3.9 cm IVSd: 1.9 cm LVOT diam: 2.0 cm LVIDs: 2.4 cm LVPWd: 1.6 cm LVOT area: 3.3 cm2 RVDd: 3.9 cm FS: 37.3 % Ao root diam: 3.3 cm LAV(MOD-bp): 64.2 ml LVAd ap4: 27.7 cm2 LAV(MOD-bp) Indexed: 37.1 ml/m2 LVLd ap4: 8.3 cm LAV(MOD-sp2): 61.8 ml EDV(MOD-sp4): 77.6 ml LAV(MOD-sp4): 66.5 ml EDV(sp4-el): 78.3 ml LVAs ap4: 15.4 cm2 LVLs ap4: 7.7 cm ESV(MOD-sp4): 27.9 ml ESV(sp4-el): 26.0 ml EF(MOD-sp4): 64.0 % EF(sp4-el): 66.8 % LVAd ap2: 24.5 cm2 SV(MOD-sp4): 49.7 ml SV(MOD-sp2): 39.6 ml LVLd ap2: 8.4 cm EDV(MOD-sp2): 63.9 ml EDV(sp2-el): 60.4 ml LVAs ap2: 14.0 cm2 LVLs ap2: 7.7 cm ESV(MOD-sp2): 24.3 ml ESV(sp2-el): 21.7 ml EF(MOD-sp2): 62.0 % SV(sp4-el): 52.3 ml LA dimension(2D): 4.4 cm LA A4 area: 21.4 cm2 RA A4 area: 17.4 cm2 TAPSE: 1.6 cm Time Measurements MV dec time: 0.24 sec Doppler Measurements & Calculations MV E max kevin: 57.6 cm/sec Lat Peak E' Kevin: 3.5 cm/sec Med Peak E' Kevin: 4.2 cm/sec MV A max kevin: 80.9 cm/sec E/E' lat: 16.6 E/E' med: 13.6 MV E/A: 0.71 Ao V2 max: 322.1 cm/sec LV V1 max: 92.1 cm/sec MV dec slope: 238.7 cm/sec2 Ao max P.5 mmHg LV V1 max P.4 mmHg Ao V2 mean: 235.0 cm/sec LV V1 mean P.0 mmHg Ao mean P.6 mmHg LV V1 mean: 67.2 cm/sec Ao V2 VTI: 76.0 cm LV V1 VTI: 23.9 cm AV (velocity ratio): 0.31 NADEGE(I,D): 1.0 cm2 NADEGE(V,D): 0.94 cm2 SV(LVOT): 78.7 ml PA V2 max: 122.0 cm/sec TR max kevin: 191.2 cm/sec TR max P.6 mmHg ECHO/Echo Complete Interpretation Summary Normal LV size. Moderate concentric left ventricular hypertrophy. Left ventricular systolic function is normal. The estimated ejection fraction is 60 %. The left atrium is mildly enlarged. Mild (1+) eccentric mitral valve insufficiency. Moderate focal aortic valve thickening. Moderate aortic stenosis. Mild (1+) aortic valve insufficiency. Prior to the previous the above is essentially unchanged. The global longitudin al strain is borderline abnormal. The global longitudinal strain = -15.9% (abnormal). Ordering Physician: Jeri Toribio/Bobby Kim Referring Physician: Fatimah Hammond Performed By: Radha Bruce RDCS
== END | disposition home or self-care (01) ==
LOC: CVS 08:28
PROVIDERS: PCP Nurse Practitioner Family; Referring Provider Physician Assistant Medical; Visit Provider Physician Assistant Medical
DX: I25.10 Atherosclerotic heart disease of native coronary artery without angina pectoris (principal); I35.0 Nonrheumatic aortic (valve) stenosis
CPT/HCPCS: 93306

== ENCOUNTER 2022-12-11 10:26 | Outpatient (RCR) | payer MEDICARE, OTHER, SELFPAY ==
[2022-11-26 11:35] LABS: International Normalized Ratio 1.8; Prothrombin Time (Protime)PT. 20.6 SECONDS (11.7-14.9)
[2022-12-11 11:17] LABS: International Normalized Ratio 1.6; Prothrombin Time (Protime)PT. 19.2 SECONDS (11.7-14.9)
== END 2022-12-22 18:00 | disposition home or self-care (01) ==
LOC: LAB 10:26
PROVIDERS: PCP Nurse Practitioner Family; Referring Provider Physician Assistant Medical; Visit Provider Physician Assistant Medical
DX: I25.10 Atherosclerotic heart disease of native coronary artery without angina pectoris (principal)
CPT/HCPCS: 36415; 85610

== ENCOUNTER 2023-01-12 10:43 | Outpatient (RCR) | payer MEDICARE, OTHER, SELFPAY ==
[2023-01-01 11:34] LABS: International Normalized Ratio 1.9; Prothrombin Time (Protime)PT. 21.7 SECONDS (11.7-14.9)
[2023-01-12 11:10] LABS: International Normalized Ratio 1.9; Prothrombin Time (Protime)PT. 22.2 SECONDS (11.7-14.9)
[2023-01-12 11:43] LABS: PSA,Total- Diagnostic 2.73 ng/mL (0.0-4.0)
== END 2023-01-12 18:00 | disposition home or self-care (01) ==
LOC: LAB 10:43
PROVIDERS: PCP Nurse Practitioner Family; Referring Provider Physician Assistant Medical; Visit Provider Physician Assistant Medical
DX: I25.10 Atherosclerotic heart disease of native coronary artery without angina pectoris (principal); N40.1 Benign prostatic hyperplasia with lower urinary tract symptoms
CPT/HCPCS: 36415; 84153; 85610

== ENCOUNTER 2023-02-04 13:51 | Outpatient (RCR) | payer MEDICARE, OTHER, SELFPAY ==
[2023-02-04 14:49] LABS: International Normalized Ratio 2.8; Prothrombin Time (Protime)PT. 30.1 SECONDS (11.7-14.9)
== END 2023-02-04 18:00 | disposition home or self-care (01) ==
LOC: LAB 13:51
PROVIDERS: PCP Nurse Practitioner Family; Referring Provider Physician Assistant Medical; Visit Provider Physician Assistant Medical
DX: I25.10 Atherosclerotic heart disease of native coronary artery without angina pectoris (principal)
CPT/HCPCS: 36415; 85610

== ENCOUNTER 2023-03-17 11:08 | Outpatient (RCR) | payer MEDICARE, OTHER, SELFPAY ==
[2023-03-12 09:59] LABS: International Normalized Ratio 2.7; Prothrombin Time (Protime)PT. 28.6 SECONDS (11.7-14.9)
[2023-03-17 12:27] LABS: International Normalized Ratio 2.4; Prothrombin Time (Protime)PT. 26.8 SECONDS (11.7-14.9)
== END 2023-03-17 18:00 | disposition home or self-care (01) ==
LOC: LAB 11:08
PROVIDERS: PCP Nurse Practitioner Family; Referring Provider Physician Assistant Medical; Visit Provider Physician Assistant Medical
DX: I25.10 Atherosclerotic heart disease of native coronary artery without angina pectoris (principal)
CPT/HCPCS: 36415; 85610

== ENCOUNTER 2023-04-20 09:04 | Outpatient (RCR) | payer MEDICARE, OTHER, SELFPAY ==
[2023-03-25 14:47] LABS: International Normalized Ratio 1.9
[2023-04-20 10:15] LABS: Prothrombin Time (Protime)PT. 31.8 SECONDS (11.7-14.9)
== END 2023-04-23 18:00 | disposition home or self-care (01) ==
LOC: LAB 09:04
PROVIDERS: PCP Nurse Practitioner Family; Referring Provider Physician Assistant Medical; Visit Provider Physician Assistant Medical
DX: Z79.01 Long term (current) use of anticoagulants (principal); I25.10 Atherosclerotic heart disease of native coronary artery without angina pectoris
CPT/HCPCS: 36415; 85610

== ENCOUNTER 2023-06-15 10:31 | Outpatient (RCR) | payer MEDICARE, OTHER, SELFPAY ==
[2023-06-15 12:22] LABS: International Normalized Ratio 2.9; Prothrombin Time (Protime)PT. 30.4 SECONDS (11.7-14.9)
== END 2023-06-15 18:00 | disposition home or self-care (01) ==
LOC: LAB 10:31
PROVIDERS: PCP Nurse Practitioner Family; Referring Provider Physician Assistant Medical; Visit Provider Physician Assistant Medical
DX: I25.10 Atherosclerotic heart disease of native coronary artery without angina pectoris
CPT/HCPCS: 36415; 85610

== ENCOUNTER 2023-07-22 07:36 | Outpatient (RCR) | payer MEDICARE, OTHER, SELFPAY ==
[2023-07-22 10:20] LABS: Absolute Lymphocyte Count 1.19 X10^3/uL (0.83-4.51); Absolute Neutrophil Count 5.9 X10^3/uL (2.0-7.7); Basophil# 0.11 X10^3/uL; Basophil% 1.3 % (0-1); Eosinophil# 0.38 X10^3/uL; Eosinophils% 4.4 % (0-5); Hematocrit 49.5 % (40-54); Hemoglobin 15.9 g/dL (13.0-16.5); Lymphocyte # 1.19 X10^3/ul (0.83-4.51); Lymphocyte % 13.9 % (19-41); Mean Corp Hgb Conc 32.1 g/dL (32-36); Mean Corpuscular Hgb 28.4 pg (27.0-32.0); Mean Corpuscular Volume 88.6 fL (80-94); Mean Platelet Vol. 9.4 fl (6.2-12.0); Monocyte% 10.5 % (0-10); NRBC Flagged by Analyzer 0 % (0-5); Neutrophil # 5.92 X10^3/uL (2.7-7.7); Neutrophil % 69.2 % (47-70); Platelet Count 373 K/mm3 (150-450); RBC Distribution Width CV 16.3 % (11.6-14.6); RBC Distribution Width SD 52.4 fl (35.1-43.9); Red Blood Count 5.59 M/mm3 (4.6-6.2); White Blood Count 8.6 K/mm3 (4.4-11.0)
[2023-07-22 10:43] LABS: International Normalized Ratio 2.9; Prothrombin Time (Protime)PT. 30.3 SECONDS (11.7-14.9)
[2023-07-22 10:58] LABS: Hemoglobin A1c 5.6 % (3.8-5.6)
[2023-07-22 11:01] LABS: AST(SGOT) 28 U/L (15-37); Alanine Aminotransfer ALT/SGPT 24 U/L (16-61); Albumin, Serum 3.9 g/dL (3.2-5.0); Alkaline Phosphatase 92 U/L (45-117); Anion Gap 4 (5-15); BUN 25 mg/dL (7-18); BUN/Creat Ratio 22.7 RATIO (10-20); Calcium,Total 8.8 mg/dL (8.5-10.1); Chloride 111 mmol/L (98-107); Cholesterol 244 mg/dL (200); EST Glomerular Filtration Rate 69 mL/min (>60); Est Glom Filt Rate - Afr Amer 83 mL/min (>60); Globulin 3.8 g/dL (2.2-4.2); Glucose 102 mg/dL (74-106); High Density Lipoprotein 81 mg/dL; Potassium 3.9 mmol/L (3.5-5.1); Protein, Total 7.7 g/dL (6.4-8.2); Sodium Level 140 mmol/L (136-145); T4 Free Direct 1.57 ng/dL (0.76-1.46); Triglycerides 66 mg/dL; Very Low Density Lipoprotein 13 mg/dL (5-40)
== END 2023-07-23 18:00 | disposition home or self-care (01) ==
LOC: LAB 07:36
PROVIDERS: PCP Family Medicine; Referring Provider Physician Assistant Medical; Visit Provider Physician Assistant Medical
DX: Z79.01 Long term (current) use of anticoagulants (principal); I25.10 Atherosclerotic heart disease of native coronary artery without angina pectoris; I10 Essential (primary) hypertension; E78.5 Hyperlipidemia, unspecified; E03.9 Hypothyroidism, unspecified; E11.9 Type 2 diabetes mellitus without complications
CPT/HCPCS: 36415; 80053; 80061; 83036; 84439; 84443; 85025; 85610

== ENCOUNTER → 2023-07-31 | Outpatient (CLI) | payer MEDICARE, OTHER, SELFPAY ==
--- NOTE | 2023-07-31 13:21 | ECHOD_ITS ---
Reason For Study: NONRHEUMATIC AORTIC STENOSIS Procedure This was a 2D Doppler, Color Flow transthoracic echocardiogram. Exam performed in department. Left Ventricle Normal LV size. The estimated ejection fraction is 65 %. Unable to assess diastolic dysfunction. No regional wall motion abnormalities noted. Right Ventricle Normal RV size. Normal systolic function. Atria The left atrium is mildly enlarged. Normal right atrium. No doppler evidence for ASD. Mitral Valve There is moderate to severe mitral annular calcification. There is no mitral valve stenosis. Trivial mitral valve insufficiency. Tricuspid Valve There is no tricuspid stenosis. Trivial tricuspid valve insufficiency. Unable to estimate RV systolic pressure due to insufficient tricuspid regurgitant envelope. Aortic Valve Moderate diffuse aortic valve thickening. Trisinus/trileaflet aortic valve. Moderate aortic stenosis. Trivial aortic valve insufficiency. Pulmonic Valve There is no pulmonic valvular stenosis. No pulmonic valve insufficiency. Great Vessels Normal aortic root. Pericardium/Pleural No pericardial effusion. MMode/2D Measurements & Calculations LVIDd: 4.3 cm IVSd: 1.2 cm LVOT diam: 2.0 cm LVIDs: 2.9 cm LVPWd: 1.5 cm LVOT area: 3.1 cm2 RVDd: 3.9 cm FS: 33.0 % Ao root diam: 3.4 cm LAV(MOD-bp): 66.6 ml LVAd ap4: 36.5 cm2 LAV(MOD-bp) Indexed: 37.9 ml/m2 LVLd ap4: 8.7 cm LAV(MOD-sp2): 61.3 ml EDV(MOD-sp4): 126.2 ml LAV(MOD-sp4): 66.8 ml EDV(sp4-el): 130.2 ml LVAs ap4: 19.5 cm2 LVLs ap4: 7.4 cm ESV(MOD-sp4): 45.4 ml ESV(sp4-el): 43.7 ml EF(MOD-sp4): 64.0 % EF(sp4-el): 66.4 % SV(MOD-sp4): 80.8 ml SV(sp4-el): 86.5 ml LA A4 area: 22.0 cm2 LA dimension(2D): 4.1 cm RA A4 area: 18.9 cm2 TAPSE: 1.7 cm Time Measurements MV dec time: 0.26 sec Doppler Measurements & Calculations MV E max kevin: 72.4 cm/sec Lat Peak E' Kevin: 9.1 cm/sec Med Peak E' Kevin: 5.5 cm/sec MV A max kevin: 100.6 cm/sec E/E' lat: 7.9 E/E' med: 13.0 MV E/A: 0.72 Ao V2 max: 351.0 cm/sec LV V1 max: 90.1 cm/sec SV(LVOT): 72.2 ml Ao max P.3 mmHg LV V1 max P.2 mmHg Ao V2 mean: 251.4 cm/sec LV V1 mean P.8 mmHg Ao mean P.5 mmHg LV V1 mean: 63.8 cm/sec Ao V2 VTI: 83.0 cm LV V1 VTI: 23.3 cm AV (velocity ratio): 0.28 NADEGE(I,D): 0.87 cm2 NADEGE(V,D): 0.80 cm2 PA V2 max: 125.2 cm/sec TR max kevin: 248.1 cm/sec TR max P.6 mmHg ECHO/Echo Complete Interpretation Summary The estimated ejection fraction is 65 %. Unable to assess diastolic dysfunction. The left atrium is mildly enlarged. Trivial mitral valve insufficiency. Moderate aortic stenosis. Trivial aortic valve insufficiency. Ordering Physician: Jeri Toribio Referring Physician: ANKUR LOVETT Performed By: Padmaja Clemente RDCS
== END | disposition home or self-care (01) ==
LOC: CVS 13:20
PROVIDERS: PCP Nurse Practitioner Family; Referring Provider Physician Assistant Medical; Visit Provider Physician Assistant Medical
DX: I35.0 Nonrheumatic aortic (valve) stenosis (principal)
CPT/HCPCS: 93306

== ENCOUNTER → 2023-09-15 | Outpatient (CLI) | payer MEDICARE, OTHER, SELFPAY ==
[2023-09-15 13:02] LABS: International Normalized Ratio 2.3; Prothrombin Time (Protime)PT. 25.3 SECONDS (11.7-14.9)
== END | disposition home or self-care (01) ==
LOC: BFHLAB 11:15
PROVIDERS: PCP Nurse Practitioner Family; Visit Provider Physician Assistant Medical
DX: I25.10 Atherosclerotic heart disease of native coronary artery without angina pectoris (principal)
CPT/HCPCS: 36415; 85610

== ENCOUNTER 2023-11-05 11:47 | Outpatient (RCR) | payer MEDICARE, OTHER, SELFPAY ==
[2023-11-05 13:21] LABS: Prothrombin Time (Protime)PT. 22.7 SECONDS (11.7-14.9)
== END 2023-11-05 18:00 | disposition home or self-care (01) ==
LOC: LAB 11:47
PROVIDERS: PCP Nurse Practitioner Family; Referring Provider Physician Assistant Medical; Visit Provider Physician Assistant Medical
DX: I25.10 Atherosclerotic heart disease of native coronary artery without angina pectoris
CPT/HCPCS: 36415; 85610

== ENCOUNTER → 2023-11-18 | Outpatient (CLI) | payer MEDICARE, OTHER, SELFPAY ==
--- NOTE | 2023-11-18 08:28 | CDU_ITS ---
Reason For Study: Carotid bruit vs referred murmur Rt. Velocities/BP Lt. Velocities/BP Prox CCA 80.6/15.4 cm/sec. Prox CCA 117.0/24.9 cm/sec. Mid CCA 118.2/26.2 cm/sec. Mid CCA 83.9/17.6 cm/sec. Dist CCA 81.4/20.0 cm/sec. Dist CCA 77.7/17.6 cm/sec. Prox ICA 56.0/19.2 cm/sec. Prox ICA 60.0/22.6 cm/sec. Mid ICA 64.5/20.1 cm/sec. Mid ICA 55.6/19.3 cm/sec. Dist ICA 51.7/19.5 cm/sec. Dist ICA 53.4/19.3 cm/sec. Rt. ICA/CCA = 0.55. Lt. ICA/CCA = 0.66. Prox ECA 152.1/9.4 cm/sec. Prox ECA 101.1/11.4 cm/sec. Rt. Vert. 38.9/14.8 cm/sec. Lt. Vert. 34.6/9.0 cm/sec. Right Extracranial There is intimal thickening but no significant atherosclerotic plaque noted in the right common carotid artery. There is heterogeneous, irregular atherosclerotic plaque noted in the right internal carotid artery. There is heterogeneous, irregular atherosclerotic plaque noted in the right external carotid artery. Antegrade flow is noted in the right vertebral artery. Left Extracranial There is intimal thickening but no significant atherosclerotic plaque noted in the left common carotid artery. There is heterogeneous, irregular atherosclerotic plaque noted in the left internal carotid artery. There is homogeneous, irregular atherosclerotic plaque noted in the left external carotid artery. Antegrade flow is noted in the left vertebral artery. Procedure Carotid Duplex [id number]. This is a Carotid Duplex examination using B-mode, color flow and specral Doppler. Exam performed in department. VL/Carotid Duplex Ultrasound Interpretation Summary Irregular heterogenous calcific plaque with shadowing at the proximal right int ernal carotid artery with less than 50% stenosis Less than 50% stenosis right external carotid artery Irregular heterogenous plaque at the proximal left internal carotid artery with less than 50% stenosis Less than 50% stenosis left external carotid artery Patent and antegrade vertebral arteries bilaterally Ordering Physician: Олег Ortiz Referring Physician: Fatimah Hammond NP Performed By: Lela Silverman RVT and Student
--- NOTE | 2023-11-18 08:28 | ADUUE_ITS ---
Reason For Study: BP mismatch Lt arm LEFT Left Subclavian velocity = 124.9 cm/sec. Left Axillary velocity = 71.3 cm/sec. Left Brachial velocity = 72.3 cm/sec. Left Radial velocity = 46.2 cm/sec. Left Ulnar velocity = 41.2 cm/sec. Arm Seg Pressures Rt Brachial pressure = 136 mmHg. Lt Brachial pressure = 140 mmHg. VL/US Art Duplex Unilat UP Extrem Interpretation Summary Patent left upper extremity subclavian, axillary, brachial, radial, and ulnar a rteries. No focal areas of velocity elevation identified Right upper extremity blood pressure 136/82 Left upper extremity blood pressure 140/80 Ordering Physician: Олег Ortiz Referring Physician: Fatimah Hammond NP Performed By: Lela Silverman RVT and Student
== END | disposition home or self-care (01) ==
LOC: CVS 08:27
PROVIDERS: PCP Nurse Practitioner Family; Referring Provider Internal Medicine Cardiovascular Disease; Visit Provider Internal Medicine Cardiovascular Disease
DX: I73.9 Peripheral vascular disease, unspecified (principal); R09.89 Other specified symptoms and signs involving the circulatory and respiratory systems
CPT/HCPCS: 93880; 93931

== ENCOUNTER 2023-12-21 20:58 | Emergency (ER) | payer MEDICARE, OTHER, SELFPAY ==
[2023-12-21 21:00] VITALS: BP 155/91; PULSE 70; RESP 13; TEMP 36; O2SAT 94; BMI 26.4
--- NOTE | 2023-12-21 21:09 | EKG12_ITS ---
Test Reason : HIGH HR Blood Pressure : / mmHG Vent. Rate : 058 BPM Atrial Rate : 058 BPM P-R Int : 172 ms QRS Dur : 096 ms QT Int : 430 ms P-R-T Axes : 018 -36 -15 degrees QTc Int : 422 ms Sinus bradycardia with sinus arrhythmia Left axis deviation Pulmonary disease pattern Moderate voltage criteria for LVH, may be normal variant ( R in aVL , [place] product ) Nonspecific T wave abnormality Abnormal ECG Confirmed by JENNIFER SANCHEZ, DOUG ([id number]), sports editor JORY FELIZ ([id number]) on 12/25/2023 9:59:28 AM Referred By: Confirmed By:LETY RODRIGUEZ MD
[2023-12-21 21:29] LABS: Absolute Lymphocyte Count 1.35 X10^3/uL (0.83-4.51); Absolute Neutrophil Count 5.3 X10^3/uL (2.0-7.7); Basophil# 0.08 X10^3/uL; Eosinophil# 0.44 X10^3/uL; Eosinophils% 5.5 % (0-5); Hematocrit 48.9 % (40-54); Hemoglobin 15.6 g/dL (13.0-16.5); Lymphocyte # 1.35 X10^3/ul (0.83-4.51); Lymphocyte % 16.9 % (19-41); Mean Corp Hgb Conc 31.9 g/dL (32-36); Mean Corpuscular Hgb 28.4 pg (27.0-32.0); Mean Corpuscular Volume 88.9 fL (80-94); Mean Platelet Vol. 9.3 fl (6.2-12.0); Monocyte# 0.74 X10^3/uL; Monocyte% 9.3 % (0-10); NRBC Flagged by Analyzer 0 % (0-5); Neutrophil # 5.34 X10^3/uL (2.7-7.7); Neutrophil % 66.8 % (47-70); Platelet Count 330 K/mm3 (150-450); RBC Distribution Width CV 17.4 % (11.6-14.6); RBC Distribution Width SD 55.2 fl (35.1-43.9)
--- NOTE | 2023-12-21 21:29 | ED.VIS.CHEST ---
HPI History of Present Illness Chief Complaint: Chest Pain Narrative Narrative: 78-year-old male presenting with chest pain. He has a history of paroxysmal A-fib and is on Coumadin. He also has a history of SVT. He states he woke up from sleep at about 8 PM and is heart was racing and he was having some chest discomfort. He cannot describe the discomfort. He denies being diaphoretic or short of breath. Patient with history of hypertension, CAD, hyperlipidemia, NSTEMI. Patient states the pain feels similar to when he had a heart attack. Patient rates his pain a 2/10 right now. 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 ST elevation (STEMI) myocardial infarction History of stress test History of echocardiogram Wears glasses Wears partial dentures Cancer Arthritis High cholesterol Easy bruising Excessive bleeding Cardiology follow-up encounter Chest pain Essential hypertension Atherosclerotic heart disease of habematolel coronary artery without angina pectoris Stented coronary artery (10/01/21) Chest tightness Hematuria Hearing loss of left ear Nonrheumatic mitral valve regurgitation Nonrheumatic aortic (valve) stenosis History of pericarditis (~04/2017) Atelectasis Right inguinal hernia History of BPH History of kidney stones Thymoma, malignant Hyperlipidemia Carotid dissection, 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) SERGO (obstructive sleep apnea) Paroxysmal A-fib Hypothyroidism Chest pain Home Medications ?Medication ?Instructions ?Recorded ?Last Taken ?Type nitroglycerin 0.4 mg sublingual 0.4 mg sublingual Q5-15M PRN chest 12/21/18 Unknown Rx tablet pain #25 tabs lysine 500 mg tablet 500 mg PO DAILY supplement 06/09/19 09/18/21 History finasteride 5 mg tablet 5 mg PO DAILY #90 tabs 11/21/19 09/18/21 Rx cholecalciferol (vitamin D3) 25 25 mcg PO DAILY vitamin 06/27/21 09/18/21 History mcg (1,000 unit) tablet cyanocobalamin (vitamin B-12) 1,000 mcg PO DAILY vitamin 06/27/21 09/18/21 History 1,000 mcg tablet (Vitamin B-12) multivitamin 1 tab PO DAILY vitamin 07/31/21 09/18/21 History acetaminophen 500 mg tablet 1,000 mg PO TID PRN Pain 10/09/21 Unknown History aspirin 81 mg tablet,delayed 81 mg PO DAILY #30 tabs 10/22/22 Unknown Rx release (Adult Aspirin Regimen) amiodarone 100 mg tablet 100 mg PO DAILY #90 tabs 12/29/22 Unknown Rx amlodipine 2.5 mg tablet 2.5 mg PO DAILY #90 tabs 02/23/23 Unknown Rx warfarin 5 mg tablet 5 mg PO DAILY #90 tabs 04/20/23 Unknown Rx warfarin 7.5 mg tablet 7.5 mg PO 3XW 07/07/23 Unknown History levothyroxine 100 mcg capsule 100 mcg PO DAILY 11/05/23 Unknown History carvedilol 12.5 mg tablet (Coreg) 12.5 mg PO BID #180 tabs 11/20/23 Unknown Rx Allergy/AdvReac Type Severity Reaction Status Date / Time cefuroxime Allergy Intermediate Rash Verified 07/07/23 10:42 rosuvastatin (From Crestor) AdvReac Severe severe Verified 07/07/23 10:42 myalgias lisinopril AdvReac Intermediate didn't Verified 07/07/23 10:42 control bp well, labile cephalexin AdvReac Pain in Verified 07/07/23 10:42 joints levofloxacin (From Levaquin) AdvReac achiness Verified 07/07/23 10:42 Family History Father Heart disease Hypertension Mother CVA (cerebral vascular accident) Brother Cancer Hypertension Sister Cancer Hypertension Surgical History History of cataract extraction History of cardiac catheterization History of partial knee replacement History of arthroscopy of left knee History of transurethral resection of prostate History of tonsillectomy History of hernia repair Presence of coronary angioplasty implant and graft (~09/14/21) H/O right and left heart catheterization (11/12/18) History of thymectomy (04/23/17) Social History Smoking Status: Never smoker alcohol intake: never substance use type: does not use caffeine: No ROS ROS ED Constitutional Constitutional ED: Denies chills, fever(s) or sweats Eyes Eyes: Denies blurry vision or change in vision ENT ENT ED: Denies ear pain or sore throat Cardiovascular Cardiovascular: Reports chest pain, palpitations and racing heartbeat Respiratory/Chest Respiratory/Chest: Denies cough, dyspnea or sputum Gastrointestinal Gastrointestinal: Denies abdominal pain, constipation, diarrhea, nausea or vomiting Genitourinary Genitourinary ED: Denies dysuria, hematuria or urinary frequency Musculoskeletal Musculoskeletal: Denies arthralgias, myalgias or neck pain Integumentary Denies abscess, Abrasions or rash Neurologic Neurologic: Denies headache(s), paresthesias or weakness Psychiatric Psychiatric: Denies anxiety, depression, suicidal ideation or suicidal thoughts Endocrine Endocrinology: Denies polydipsia or polyuria EXAM Physical Exam Const Vital Signs: 12/21/23 21:00 12/21/23 21:09 12/21/23 21:36 Temperature 96.8 F L Temperature Source Tympanic Pulse Rate 70 66 Respiratory Rate 13 Blood Pressure 155/91 H 121/90 H Blood Pressure Mean 112 Pulse Ox 94 Oxygen Delivery Method Room Air Room Air 12/21/23 21:58 12/21/23 22:00 12/21/23 23:00 Temperature Temperature Source Pulse Rate 74 74 56 L Respiratory Rate 16 16 18 Blood Pressure 116/85 H 116/85 H 123/80 H Blood Pressure Mean 95 95 94 Pulse Ox 97 97 93 Oxygen Delivery Method Room Air Room Air Room Air 12/21/23 23:23 Temperature Temperature Source Pulse Rate 50 L Respiratory Rate Blood Pressure 123/73 H Blood Pressure Mean Pulse Ox Oxygen Delivery Method General Appearance ED: Negative for pallor HEENT Reports normocephalic, head/scalp atraumatic and moist mucous membranes Eyes PERRL and EOMs intact bilaterally Neck no lymphadenopathy and supple Chest Wall inspection of chest normal and palpation of chest normal Resp normal respiratory effort and clear to auscultation bilaterally Auscultation: Negative for rales, rhonchi or wheezes Cardio regular rate and regular rhythm GI normal to inspection, nondistended, normoactive bowel sounds and non-distended Auscultation: normoactive bowel sounds Palpation: soft Narrative: Deferred Back/Spine no CVA tenderness General Back: Negative for CVA tenderness Cervical Spine: Negative for cervical spine tenderness Extremity normal to inspection General Extremety ED: Yes edema and tenderness General Extremity: edema Neuro oriented x3 and CN's II-XII intact bilaterally Sensorium / Orientation: alert Motor Exam: strength 5/5 throughout Psych mental status grossly normal Attitude: No agitated Skin no rashes or lesions noted and no wounds General Skin Exam: Negative for jaundice or pallor Heart Score History: Slightly/Non-Suspicious ECG: Normal Age: >/= 65 years Risk Factors: >/= 3 Risk Factors or History of CAD Troponin: </= Normal Limit Score: 4 MDM MDM MDM Narrative Medical decision making narrative: Patient presenting with chest pain. Differential includes ACS, A-fib, SVT, pneumonia, dehydration, anemia, electrolyte abnormalities. Patient is on Coumadin for low suspicion for PE. CBC will be obtained to assess white blood cell count, hemoglobin, platelets. BMP to assess renal function, electrolytes, glucose. High-sensitivity troponin and EKG to assess for ischemia/dysrhythmia. Chest x-ray to rule out pneumonia. Patient was given a nitroglycerin which did seem to help with pain. CBC shows a normal white blood cell count 8.0. Hemoglobin 15.6. Platelets are normal at 330. INR slightly subtherapeutic at 1.5. He states that he took his medication just before he came to the ER and it is his normal nighttime dose. Renal function and electrolytes within normal limits. High-sensitivity troponin 17. EKG interpreted by myself shows a sinus bradycardia at a rate of 58 bpm without sign of ischemia or dysrhythmia. Patient's chest x-ray interpreted by myself shows no acute cardiopulmonary process. There is cardiomegaly present. Radiologist interprets this and agrees. Reevaluation the patient states that he still feeling uncomfortable. He states his pain is back up to a 3 of 10. He is offered pain medicine but declined. Delta troponin came back at 20 therefore there is no significant interval change. Patient states that when he was at home his heart rate was about 140. He has a history of A-fib and he has a history of SVT which could possibly have happened before we got an EKG. Since his workup is ultimately normal I feel he safe for discharge home. Return precautions were discussed. Impression: 1. Chest pain 2. Subtherapeutic INR Lab Data Attestation: I reviewed the patient's lab results. Labs: Laboratory Results - last 24 hr 12/21/23 12/21/23 12/21/23 20:40 21:48 23:24 WBC 8.0 RBC 5.50 Hgb 15.6 Hct 48.9 MCV 88.9 MCH 28.4 MCHC 31.9 L RDW Std Deviation 55.2 H RDW Coeff of Eddie 17.4 H Plt Count 330 MPV 9.3 Immature Gran % (Auto) 0.500 Neut % (Auto) 66.8 Lymph % (Auto) 16.9 L [place] % (Auto) 9.3 Eos % (Auto) 5.5 H Baso % (Auto) 1.0 Absolute Neuts (auto) 5.3 Absolute Lymphs (auto) 1.35 Nucleated RBC % 0 PT Cancelled 18.0 H INR Cancelled 1.5 Sodium 141 Potassium 3.6 Chloride 110 H Carbon Dioxide 26.0 Anion Gap 5 BUN 22 H Creatinine 0.99 Estim Creat Clear Calc 49.83 Est GFR (MDRD) Af Amer 94 Est GFR (MDRD) Non-Af 78 BUN/Creatinine Ratio 22.3 H Glucose 147 H Calcium 8.9 Troponin I High Sens 17 20 Radiography Diagnostic Testing: Clinical Impression(s) from Imaging Studies Chest X-Ray 12/21/23 21:42 IMPRESSION: No radiographic evidence of acute cardiopulmonary disease. Cardiomegaly. Electronically Signed: Costa Greene MD at 22:09 EDT Reading Location ID and State: [facility] / [place] Tel , Service support , Discharge Plan Triage Chief Complaint: Chest Pain ED Provider: Alphonso Ascencio Dx/Rx/DC Orders Instructions: ED Chest Pain, Uncertain Cause Prescriptions: No Action lysine 500 mg tablet 500 mg PO DAILY nitroglycerin 0.4 mg tablet, sublingual 0.4 mg SUBLINGUAL Q5-15M PRN (Reason: chest pain) Qty: 25 3RF Rx Instructions: until response; do not exceed 3 doses per episode multivitamin Tablet 1 tab PO DAILY cholecalciferol (vitamin D3) 25 mcg (1,000 unit) tablet 25 mcg PO DAILY cyanocobalamin (vitamin B-12) [Vitamin B-12] 1,000 mcg tablet 1,000 mcg PO DAILY acetaminophen 500 mg tablet 1,000 mg PO TID PRN (Reason: Pain) Rx Instructions: Do not take more than 3000 mg Tylenol in a 24-hour period. aspirin [Adult Aspirin Regimen] 81 mg tablet,delayed release (DR/EC) 81 mg PO DAILY Qty: 30 11RF warfarin 7.5 mg tablet 7.5 mg PO 3XW Protocol: Dose Management Condition: Thursday Dose/Route: 7.5 mg Instruction: 1 x 7.5 mg tablet Condition: Thursday Dose/Route: 7.5 mg Instruction: 1 x 7.5 mg tablet Condition: Thursday Dose/Route: 5 mg Instruction: 1 x 5 mg tablet Condition: Thursday Dose/Route: 7.5 mg Instruction: 1 x 7.5 mg tablet Condition: Dose/Route: 5 mg Instruction: 1 x 5 mg tablet Condition: Thursday Dose/Route: 5 mg Instruction: 1 x 5 mg tablet Condition: Thursday Dose/Route: 7.5 mg Instruction: 1 x 7.5 mg tablet Protocol Text: Adjustment Start Date: 11/05/23 INR Value: 2.0 INR Date: 11/05/23 Recheck Date: 12/03/23 levothyroxine 100 mcg capsule 100 mcg PO DAILY finasteride 5 MG tablet 5 mg PO DAILY Qty: 90 3RF amiodarone 100 mg tablet 100 mg PO DAILY Qty: 90 3RF amlodipine 2.5 mg tablet 2.5 mg PO DAILY Qty: 90 3RF warfarin 5 mg tablet 5 mg PO DAILY Qty: 90 3RF Protocol: Dose Management Condition: Thursday Dose/Route: 7.5 mg Instruction: 1 x 7.5 mg tablet Condition: Thursday Dose/Route: 7.5 mg Instruction: 1 x 7.5 mg tablet Condition: Thursday Dose/Route: 5 mg Instruction: 1 x 5 mg tablet Condition: Thursday Dose/Route: 7.5 mg Instruction: 1 x 7.5 mg tablet Condition: Dose/Route: 5 mg Instruction: 1 x 5 mg tablet Condition: Thursday Dose/Route: 5 mg Instruction: 1 x 5 mg tablet Condition: Thursday Dose/Route: 7.5 mg Instruction: 1 x 7.5 mg tablet Protocol Text: Adjustment Start Date: 11/05/23 INR Value: 2.0 INR Date: 11/05/23 Recheck Date: 12/03/23 Rx Instructions: Take one tab (5mg every day) and one and a half tab (7.5mg) on /Thu/Sat/Sun.; or use as directed. carvedilol [Coreg] 12.5 mg tablet 12.5 mg PO BID Qty: 180 3RF Rx Instructions: must administer with a meal/food Primary Care Provider: Fatimah Hammond Referrals: Fatimah Hammond, MEDICAL INTERN[facility] [Primary Care Provider] - Print Language: Syriac Disposition Disposition: Home, Self Care
[2023-12-21 21:36] VITALS: BP 121/90; PULSE 66
[2023-12-21] MEDS: Nitroglycerin (INPATIENT USE) 0.4 MG TAB.SUBL SL (21:36)
--- NOTE | 2023-12-21 21:42 | RAD_ITS ---
INDICATION: chest pain EXAMINATION/TECHNIQUE: X-RAY - XR Chest 1 View COMPARISON: September 18, 2021. FINDINGS: LINES/DEVICES: None. LUNGS: No consolidation, edema or effusion. No pneumothorax. MEDIASTINUM AND CARDIOVASCULAR STRUCTURES: Cardiomegaly BONES AND SOFT TISSUES: Unremarkable. RAD/Chest 1 View (Portable) IMPRESSION: No radiographic evidence of acute cardiopulmonary disease. Cardiomegaly. Electronically Signed: Costa Greene MD at 22:09 EDT ,
[2023-12-21 21:52] LABS: Anion Gap 5 (5-15); BUN 22 mg/dL (7-18); BUN/Creat Ratio 22.3 RATIO (10-20); Calcium,Total 8.9 mg/dL (8.5-10.1); Chloride 110 mmol/L (98-107); Creatinine, Serum 0.99 mg/dL (0.70-1.30); EST Glomerular Filtration Rate 78 mL/min (>60); Est Glom Filt Rate - Afr Amer 94 mL/min (>60); Estimated Creatinine Clearance 49.83 ml/min; Glucose 147 mg/dL (74-106); Potassium 3.6 mmol/L (3.5-5.1); Sodium Level 141 mmol/L (136-145); Troponin-I HS (w/2H Reflex) 17 pg/mL (3.0-78.0)
[2023-12-21 21:58] VITALS: BP 116/85; PULSE 74; RESP 16; O2SAT 97
[2023-12-21 22:00] VITALS: BP 116/85; PULSE 74; RESP 16; O2SAT 97
[2023-12-21 22:03] LABS: International Normalized Ratio 1.5
[2023-12-21 23:00] VITALS: BP 123/80; PULSE 56; RESP 18; O2SAT 93
[2023-12-21 23:16] LABS: Reflex Troponin-HS? (from REC) Y
[2023-12-21 23:23] VITALS: BP 123/73; PULSE 50
[2023-12-21] MEDS: Nitroglycerin Oint 1 INCH PACKET TD (23:23)
[2023-12-21 23:54] LABS: Troponin-I HS 20 pg/mL (3.0-78.0)
[2023-12-22] VITALS: BP 124/76; PULSE 47; RESP 19; TEMP 36.8; O2SAT 96
== END 2023-12-22 00:22 | disposition home or self-care (01) ==
PROVIDERS: Emergency Provider Student in an Organized Health Care Education/Training Program; PCP Nurse Practitioner Family; Visit Provider Student in an Organized Health Care Education/Training Program
DX: R07.9 Chest pain, unspecified (principal); I25.10 Atherosclerotic heart disease of native coronary artery without angina pectoris; I25.2 Old myocardial infarction; G47.33 Obstructive sleep apnea (adult) (pediatric)
CPT/HCPCS: 71045; 80048; 84484; 85025; 85610; 93005; 99284; A4216

== ENCOUNTER 2024-01-16 04:30 | Inpatient (IN) | payer MEDICARE, OTHER, SELFPAY ==
[2024-01-16] VITALS (16 sets, daily range): BP systolic 119–153; BP diastolic 71–90; PULSE 48–146; RESP 14–19; TEMP 36.5–36.7; O2SAT 87–99; BMI 26.6; BMI 25.7
--- NOTE | 2024-01-16 04:41 | EKG12_ITS ---
Test Reason : DYSRHYTHMIA Blood Pressure : / mmHG Vent. Rate : 051 BPM Atrial Rate : 051 BPM P-R Int : 178 ms QRS Dur : 148 ms QT Int : 470 ms P-R-T Axes : 016 -47 -16 degrees QTc Int : 433 ms Sinus bradycardia Right bundle branch block Left anterior fascicular block Bifascicular block Septal infarct , age undetermined Abnormal ECG Confirmed by Олег Ortiz ([id number]), editor producer OMAR BAEZ ([id number]) on 01/18/2024 10:26:02 AM Referred By: RU Confirmed By:Олег Ortiz
--- NOTE | 2024-01-16 04:41 | RAD_ITS ---
INDICATION: chest pain EXAMINATION/TECHNIQUE: X-RAY - XR Chest 1 View COMPARISON: 12/21/2023 FINDINGS: LINES/DEVICES: None. LUNGS: No consolidation. No pneumothorax. MEDIASTINUM: Aorta is atherosclerotic and tortuous. The aortic knob appears prominent, likely due to differences in positioning with patient rotated. CARDIAC SILHOUETTE: Top normal size for technique. BONES AND SOFT TISSUES: No acute abnormalities. RAD/Chest 1 View (Portable) IMPRESSION: No evidence of active intrathoracic disease. Electronically Signed: Carly Mosley MD at 6:19 EDT ,
--- NOTE | 2024-01-16 04:43 | EDS_ITS ---
HPI History of Present Illness Chief Complaint: Chest Pain Detail of Chief Complaint: Chest pain Informant: patient and spouse/S.O. Onset/Context/Timing Current Severity: 10/01 Narrative Narrative: Patient presents to the emergency department complaint of chest pain. Patient states that he had slept about 5 or 6 hours and then woke up and felt like his heart was racing and it was in the 140s range. Patient was given amiodarone and amlodipine by the . Patient subsequently then developed chest discomfort and was given 2 nitroglycerin tablets. EMS was called to bring patient to the ER. Patient describes a heaviness in his chest and some nausea. He describes a mild shortness of breath. Patient states it feels somewhat like pressure and an elephant sitting on his chest like when he had his last heart attack years ago. Patient on Coumadin for history of A-fib. [facility] Medical History group home current use of anticoagulant ST elevation (STEMI) myocardial infarction History of stress test History of echocardiogram Wears glasses Wears partial dentures Cancer Arthritis High cholesterol Easy bruising Excessive bleeding Cardiology follow-up encounter Chest pain Essential hypertension Atherosclerotic heart disease of [place] coronary artery without angina pectoris Stented coronary artery (10/01/21) Chest tightness Hematuria Hearing loss of left ear Nonrheumatic mitral valve regurgitation Nonrheumatic aortic (valve) stenosis History of pericarditis (~04/2017) Atelectasis Right inguinal hernia History of BPH History of kidney stones Thymoma, malignant Hyperlipidemia Carotid dissection, 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) SERGO (obstructive sleep apnea) Paroxysmal A-fib Hypothyroidism Chest pain Home Medications ?Medication ?Instructions ?Recorded ?Last Taken ?Type nitroglycerin 0.4 mg sublingual 0.4 mg sublingual Q5-15M PRN chest 12/21/18 01/16/24 Rx tablet pain #25 tabs lysine 500 mg tablet 500 mg PO DAILY supplement 06/09/19 09/18/21 History finasteride 5 mg tablet 5 mg PO DAILY #90 tabs 11/21/19 09/18/21 Rx cholecalciferol (vitamin D3) 25 25 mcg PO DAILY vitamin 06/27/21 09/18/21 History mcg (1,000 unit) tablet cyanocobalamin (vitamin B-12) 1,000 mcg PO DAILY vitamin 06/27/21 09/18/21 History 1,000 mcg tablet (Vitamin B-12) multivitamin 1 tab PO DAILY vitamin 07/31/21 09/18/21 History acetaminophen 500 mg tablet 1,000 mg PO TID PRN Pain 10/09/21 Unknown History aspirin 81 mg tablet,delayed 81 mg PO DAILY #30 tabs 10/22/22 Unknown Rx release (Adult Aspirin Regimen) amiodarone 100 mg tablet 100 mg PO DAILY #90 tabs 12/29/22 01/16/24 Rx amlodipine 2.5 mg tablet 2.5 mg PO DAILY #90 tabs 02/23/23 01/16/24 Rx warfarin 5 mg tablet 5 mg PO DAILY #90 tabs 04/20/23 Unknown Rx warfarin 7.5 mg tablet 7.5 mg PO 3XW 07/07/23 Unknown History levothyroxine 100 mcg capsule 100 mcg PO DAILY 11/05/23 Unknown History carvedilol 12.5 mg tablet (Coreg) 12.5 mg PO BID #180 tabs 11/20/23 Unknown Rx Allergy/AdvReac Type Severity Reaction Status Date / Time cefuroxime Allergy Intermediate Rash Verified 07/07/23 10:42 rosuvastatin (From Crestor) AdvReac Severe severe Verified 07/07/23 10:42 myalgias lisinopril AdvReac Intermediate didn't Verified 07/07/23 10:42 control bp well, labile cephalexin AdvReac Pain in Verified 07/07/23 10:42 joints levofloxacin (From Levaquin) AdvReac achiness Verified 07/07/23 10:42 Family History Father Heart disease Hypertension Mother CVA (cerebral vascular accident) Brother Cancer Hypertension Sister Cancer Hypertension Surgical History History of cataract extraction History of cardiac catheterization History of partial knee replacement History of arthroscopy of left knee History of transurethral resection of prostate History of tonsillectomy History of hernia repair Presence of coronary angioplasty implant and graft (~09/14/21) H/O right and left heart catheterization (11/12/18) History of thymectomy (04/23/17) Social History Smoking Status: Never smoker alcohol intake: never substance use type: does not use caffeine: No ROS ROS ED Review of Systems ROS Unobtainable: other Constitutional Constitutional ED: Reports lethargy; Denies chills, fever(s), sweats or weight loss Eyes Eyes: Denies blurry vision, change in vision or diplopia ENT ENT ED: Denies rhinorrhea or sore throat Cardiovascular Cardiovascular: Reports chest pain and racing heartbeat; Denies orthopnea Respiratory/Chest Respiratory/Chest: Reports dyspnea; Denies cough, dyspnea on exertion, orthopnea or sputum Gastrointestinal Gastrointestinal: Reports nausea; Denies abdominal pain, diarrhea or vomiting Genitourinary Genitourinary ED: Denies dysuria, hematuria or urinary frequency Musculoskeletal Musculoskeletal: Denies arthralgias, back pain, myalgias or neck pain Integumentary Denies abscess, Abrasions or rash Neurologic Neurologic: Denies headache(s) or weakness Psychiatric Psychiatric: Denies anxiety, depression or suicidal thoughts Endocrine Endocrinology: Denies polydipsia, polyphagia or polyuria Hematologic/Lymphatic Hematologic/Lymphatic: Denies easy bleeding, easy bruising or lymphadenopathy Allergic/Immunologic Allergic/Immunologic ED: Denies mouth swelling, tongue swelling or urticaria EXAM Physical Exam Const Vital Signs: 01/16/24 04:30 01/16/24 04:30 01/16/24 04:38 Temperature 98 F Temperature Source Temporal Pulse Rate 82 48 L Respiratory Rate 14 16 Respiratory Effort Normal Non-Labored Blood Pressure 130/83 H 153/85 H Blood Pressure Mean 98 107 Pulse Ox 95 95 Oxygen Delivery Method Room Air Room Air 01/16/24 04:42 01/16/24 04:44 01/16/24 04:53 Temperature Temperature Source Pulse Rate 146 H 122 H Respiratory Rate 19 H Respiratory Effort Blood Pressure 119/90 H Blood Pressure Mean 99 Pulse Ox 96 96 Oxygen Delivery Method Room Air Room Air 01/16/24 04:56 01/16/24 04:59 01/16/24 05:02 Temperature Temperature Source Pulse Rate 56 L 52 L 63 Respiratory Rate 17 Respiratory Effort Blood Pressure 129/74 H 129/74 H Blood Pressure Mean 92 Pulse Ox 96 Oxygen Delivery Method Room Air 01/16/24 05:23 Temperature Temperature Source Pulse Rate 52 L Respiratory Rate 15 Respiratory Effort Blood Pressure 132/81 H Blood Pressure Mean 98 Pulse Ox 97 Oxygen Delivery Method Room Air Positive well nourished and well developed General Appearance ED: well developed and NAD HEENT Reports TM's clear and moist mucous membranes normocephalic and atraumatic; Negative for trauma or tenderness Tympanic Membrane ED: Yes TM's clear Eyes PERRL and EOMs intact bilaterally General Eye ED: Negative for pale conjunctiva or scleral icterus Neck no lymphadenopathy, supple and no JVD General: Negative for tenderness Chest Wall inspection of chest normal and palpation of chest normal Chest: Negative for tenderness Resp normal respiratory effort and clear to auscultation bilaterally Effort and Inspection: Negative for respiratory distress or pain with movement Auscultation: Negative for rhonchi, wheezes or diminished lung sounds Cardio regular rate, regular rhythm, S1 normal heart sound and S2 normal heart sound Rate: other Other Details: 2 out of 6 systolic ejection murmur Peripheral Pulses: pulses 2+ throughout GI normal to inspection, nondistended, normoactive bowel sounds, soft to palpation, non-tender, non-distended and no masses Back/Spine no CVA tenderness and no thoracic nor lumbar tenderness Extremity normal to inspection General Extremety ED: Negative for edema General Extremity: Negative for edema Neuro oriented x3, CN's II-XII intact bilaterally, no sensory deficits noted and gait normal Sensorium / Orientation: awake, alert, oriented to person, oriented to place and oriented to time Motor Exam: strength 5/5 throughout and strength abnormal Psych mental status grossly normal Skin no rashes or lesions noted and no wounds Heart Score History: Highly Suspicious ECG: Nonspecific Repolarization Age: >/= 65 years Risk Factors: >/= 3 Risk Factors or History of CAD Troponin: </= Normal Limit Score: 7 MDM MDM MDM Narrative Medical decision making narrative: Patient presents with tachycardia and chest pain. Patient has history of A-fib and history of coronary artery disease. In the differential will be supraventricular tachycardia versus acute coronary syndrome. He describes symptoms similar to when he needed a stent few years ago. IV line established. EKG obtained on arrival showed sinus bradycardia with rate of 68 bpm with old septal infarct. After I left the room after evaluating patient his heart rate jumped into the 140 range and repeat EKG was obtained which showed a supraventricular tachycardia with rate of 143 bpm which I suspect is atrial flutter with variable block. Patient was given Cardizem 20 mg IV bolus and he converted back to a sinus bradycardia with a heart rate in the 50s. CBC with differential, 7.8 with hemoglobin 15 and platelet count of 303. Chemistries unremarkable. Troponin initial was 14. Chest x-ray showed no acute disease process. While in the department I did give him an inch of Nitropaste to the anterior chest wall. Patient did not want any pain medication. INR was 2.0. Discussed case with hospitalist who asked that I discussed case with [facility] [employer] on-call. Spoke with Dr. Adams given patient's complicated medical history and history of aortic stenosis. Discussed recent echo findings and patient will be admitted to our hospital under hospital service with consult to cardiology. Lab Data Attestation: I reviewed the patient's lab results. Labs: Laboratory Results - last 24 hr 01/16/24 04:51 WBC 7.8 RBC 5.32 Hgb 15.5 Hct 48.1 MCV 90.4 MCH 29.1 MCHC 32.2 RDW Std Deviation 57.6 H RDW Coeff of Eddie 17.5 H Plt Count 303 MPV 9.2 Immature Gran % (Auto) 0.500 Neut % (Auto) 68.8 Lymph % (Auto) 13.7 L Knox % (Auto) 10.8 H Eos % (Auto) 5.4 H Baso % (Auto) 0.8 Absolute Neuts (auto) 5.3 Absolute Lymphs (auto) 1.06 Nucleated RBC % 0 PT 22.2 H INR 2.0 Sodium 139 Potassium 3.9 Chloride 106 Carbon Dioxide 28.0 Anion Gap 5 BUN 21 H Creatinine 1.09 Estim Creat Clear Calc 45.26 Est GFR (MDRD) Af Amer 84 Est GFR (MDRD) Non-Af 69 BUN/Creatinine Ratio 19.3 Glucose 145 H Calcium 8.9 Troponin I High Sens 14 Discharge Plan Triage Chief Complaint: Chest Pain ED Provider: Lupis José Dx/Rx/DC Orders Clinical Impression: Chest pain, Supraventricular tachycardia, History of CAD (coronary artery disease) Prescriptions: No Action lysine 500 mg tablet 500 mg PO DAILY nitroglycerin 0.4 mg tablet, sublingual 0.4 mg SUBLINGUAL Q5-15M PRN (Reason: chest pain) Qty: 25 3RF Rx Instructions: until response; do not exceed 3 doses per episode multivitamin Tablet 1 tab PO DAILY cholecalciferol (vitamin D3) 25 mcg (1,000 unit) tablet 25 mcg PO DAILY cyanocobalamin (vitamin B-12) [Vitamin B-12] 1,000 mcg tablet 1,000 mcg PO DAILY acetaminophen 500 mg tablet 1,000 mg PO TID PRN (Reason: Pain) Rx Instructions: Do not take more than 3000 mg Tylenol in a 24-hour period. aspirin [Adult Aspirin Regimen] 81 mg tablet,delayed release (DR/EC) 81 mg PO DAILY Qty: 30 11RF warfarin 7.5 mg tablet 7.5 mg PO 3XW Protocol: Dose Management Condition: Thursday Dose/Route: 7.5 mg Instruction: 1 x 7.5 mg tablet Condition: Thursday Dose/Route: 7.5 mg Instruction: 1 x 7.5 mg tablet Condition: Thursday Dose/Route: 5 mg Instruction: 1 x 5 mg tablet Condition: Thursday Dose/Route: 7.5 mg Instruction: 1 x 7.5 mg tablet Condition: Dose/Route: 5 mg Instruction: 1 x 5 mg tablet Condition: Thursday Dose/Route: 5 mg Instruction: 1 x 5 mg tablet Condition: Thursday Dose/Route: 7.5 mg Instruction: 1 x 7.5 mg tablet Protocol Text: Adjustment Start Date: 11/05/23 INR Value: 2.0 INR Date: 11/05/23 Recheck Date: 12/03/23 levothyroxine 100 mcg capsule 100 mcg PO DAILY finasteride 5 MG tablet 5 mg PO DAILY Qty: 90 3RF amiodarone 100 mg tablet 100 mg PO DAILY Qty: 90 3RF amlodipine 2.5 mg tablet 2.5 mg PO DAILY Qty: 90 3RF warfarin 5 mg tablet 5 mg PO DAILY Qty: 90 3RF Protocol: Dose Management Condition: Thursday Dose/Route: 7.5 mg Instruction: 1 x 7.5 mg tablet Condition: Thursday Dose/Route: 7.5 mg Instruction: 1 x 7.5 mg tablet Condition: Thursday Dose/Route: 5 mg Instruction: 1 x 5 mg tablet Condition: Thursday Dose/Route: 7.5 mg Instruction: 1 x 7.5 mg tablet Condition: Dose/Route: 5 mg Instruction: 1 x 5 mg tablet Condition: Thursday Dose/Route: 5 mg Instruction: 1 x 5 mg tablet Condition: Thursday Dose/Route: 7.5 mg Instruction: 1 x 7.5 mg tablet Protocol Text: Adjustment Start Date: 11/05/23 INR Value: 2.0 INR Date: 11/05/23 Recheck Date: 12/03/23 Rx Instructions: Take one tab (5mg every day) and one and a half tab (7.5mg) on /Thu/Thu/Sun.; or use as directed. carvedilol [Coreg] 12.5 mg tablet 12.5 mg PO BID Qty: 180 3RF Rx Instructions: must administer with a meal/food Primary Care Provider: Fatimah Hammond Referrals: Fatimah Hammond, [facility] [Primary Care Provider] - Print Language: [place] Disposition Disposition: Acute Care [facility]
--- NOTE | 2024-01-16 04:45 | EKG12_ITS ---
Test Reason : CP Blood Pressure : / mmHG Vent. Rate : 048 BPM Atrial Rate : 048 BPM P-R Int : 174 ms QRS Dur : 096 ms QT Int : 446 ms P-R-T Axes : 021 -41 -38 degrees QTc Int : 398 ms Sinus bradycardia Left axis deviation Minimal voltage criteria for LVH, may be normal variant ( R in aVL ) Septal infarct , age undetermined Abnormal ECG Confirmed by Олег Ortiz ([id number]), editor magazine OMAR BAEZ [id number]) on 01/18/2024 10:27:00 AM Referred By: JABIER Confirmed By:Олег Ortiz
[2024-01-16] MEDS: 0.9% Normal Saline (1000mL) 1,000 ML 150 ML IV (04:46)
[2024-01-16] MEDS: dilTIAZem 25 MG/5 ML Vial 20 MG IV BOLUS (04:49)
[2024-01-16] MEDS: Ondansetron 4 MG/2 ML Vial IV (04:52)
[2024-01-16] MEDS: Nitroglycerin Oint 1 INCH PACKET TD (05:02)
[2024-01-16 05:10] LABS: Absolute Lymphocyte Count 1.06 X10^3/uL (0.83-4.51); Absolute Neutrophil Count 5.3 X10^3/uL (2.0-7.7); Basophil# 0.06 X10^3/uL; Basophil% 0.8 % (0-1); Eosinophil# 0.42 X10^3/uL; Eosinophils% 5.4 % (0-5); Hematocrit 48.1 % (40-54); Hemoglobin 15.5 g/dL (13.0-16.5); Lymphocyte # 1.06 X10^3/ul (0.83-4.51); Lymphocyte % 13.7 % (19-41); Mean Corp Hgb Conc 32.2 g/dL (32-36); Mean Corpuscular Hgb 29.1 pg (27.0-32.0); Mean Corpuscular Volume 90.4 fL (80-94); Mean Platelet Vol. 9.2 fl (6.2-12.0); Monocyte# 0.84 X10^3/uL; Monocyte% 10.8 % (0-10); NRBC Flagged by Analyzer 0 % (0-5); Neutrophil # 5.33 X10^3/uL (2.7-7.7); Neutrophil % 68.8 % (47-70); Platelet Count 303 K/mm3 (150-450); RBC Distribution Width CV 17.5 % (11.6-14.6); RBC Distribution Width SD 57.6 fl (35.1-43.9); Red Blood Count 5.32 M/mm3 (4.6-6.2); White Blood Count 7.8 K/mm3 (4.4-11.0)
[2024-01-16 05:23] LABS: Prothrombin Time (Protime)PT. 22.2 SECONDS (11.7-14.9)
[2024-01-16 05:36] LABS: Anion Gap 5 (5-15); BUN 21 mg/dL (7-18); BUN/Creat Ratio 19.3 RATIO (10-20); Calcium,Total 8.9 mg/dL (8.5-10.1); Chloride 106 mmol/L (98-107); Creatinine, Serum 1.09 mg/dL (0.70-1.30); EST Glomerular Filtration Rate 69 mL/min (>60); Est Glom Filt Rate - Afr Amer 84 mL/min (>60); Estimated Creatinine Clearance 45.26 ml/min; Glucose 145 mg/dL (74-106); Potassium 3.9 mmol/L (3.5-5.1); Sodium Level 139 mmol/L (136-145); Troponin-I HS (w/2H Reflex) 14 pg/mL (3.0-78.0)
--- NOTE | 2024-01-16 06:19 | PCM.HP.STD ---
HPI - General General Date of Admission: 01/16/24 Date of Service: 01/16/24 Chief Complaint: Chest pain HPI Narrative HANG KEENAN, is a 78 M who presented to the emergency department at [facility] on 01/16/2024 after experiencing chest pain that was substernal in nature and felt like a heaviness with some associated nausea and mild shortness of breath. He indicated he felt like an elephant was sitting on his chest and very similar to when he had his heart attack several years ago. He is chronically anticoagulated with Coumadin for his history of atrial fibrillation. Patient reported that he slept about 5 to 6 hours and then woke up and felt like his heart was racing with his heart rate noted to be in 140s when he woke up. He took amiodarone and a dose of amlodipine given to him by his after which she developed the chest discomfort and then was given 2 tablets of nitroglycerin. His EKG on arrival showed sinus bradycardia with a heart rate at 68. He then developed tachycardia with heart rates in the 140s which appeared to be atrial flutter with variable block and he was given 20 mg of IV Cardizem which converted him back to sinus bradycardia with heart rates in the 50s. 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 ST elevation (STEMI) myocardial infarction History of stress test History of echocardiogram Wears glasses Wears partial dentures Cancer Arthritis High cholesterol Easy bruising Excessive bleeding Cardiology follow-up encounter Chest pain Essential hypertension Atherosclerotic heart disease of [place] coronary artery without angina pectoris Stented coronary artery (10/01/21) Chest tightness Hematuria Hearing loss of left ear Nonrheumatic mitral valve regurgitation Nonrheumatic aortic (valve) stenosis History of pericarditis (~04/2017) Atelectasis Right inguinal hernia History of BPH History of kidney stones Thymoma, malignant Hyperlipidemia Carotid dissection, 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) SERGO (obstructive sleep apnea) Paroxysmal A-fib Hypothyroidism Chest pain Home Medications ?Medication ?Instructions ?Recorded ?Last Taken ?Type nitroglycerin 0.4 mg sublingual 0.4 mg sublingual Q5-15M PRN chest 12/21/18 01/16/24 Rx tablet pain #25 tabs lysine 500 mg tablet 500 mg PO DAILY supplement 06/09/19 09/18/21 History finasteride 5 mg tablet 5 mg PO DAILY #90 tabs 11/21/19 09/18/21 Rx cholecalciferol (vitamin D3) 25 25 mcg PO DAILY vitamin 06/27/21 09/18/21 History mcg (1,000 unit) tablet cyanocobalamin (vitamin B-12) 1,000 mcg PO DAILY vitamin 06/27/21 09/18/21 History 1,000 mcg tablet (Vitamin B-12) multivitamin 1 tab PO DAILY vitamin 07/31/21 09/18/21 History acetaminophen 500 mg tablet 1,000 mg PO TID PRN Pain 10/09/21 Unknown History aspirin 81 mg tablet,delayed 81 mg PO DAILY #30 tabs 10/22/22 Unknown Rx release (Adult Aspirin Regimen) amiodarone 100 mg tablet 100 mg PO DAILY #90 tabs 12/29/22 01/16/24 Rx amlodipine 2.5 mg tablet 2.5 mg PO DAILY #90 tabs 02/23/23 01/16/24 Rx warfarin 5 mg tablet 5 mg PO DAILY #90 tabs 04/20/23 Unknown Rx warfarin 7.5 mg tablet 7.5 mg PO 3XW 07/07/23 Unknown History levothyroxine 100 mcg capsule 100 mcg PO DAILY 11/05/23 Unknown History carvedilol 12.5 mg tablet (Coreg) 12.5 mg PO BID #180 tabs 11/20/23 Unknown Rx Allergy/AdvReac Type Severity Reaction Status Date / Time cefuroxime Allergy Intermediate Rash Verified 07/07/23 10:42 rosuvastatin (From Crestor) AdvReac Severe severe Verified 07/07/23 10:42 myalgias lisinopril AdvReac Intermediate didn't Verified 07/07/23 10:42 control bp well, labile cephalexin AdvReac Pain in Verified 07/07/23 10:42 joints levofloxacin (From Levaquin) AdvReac achiness Verified 07/07/23 10:42 Family History Father Heart disease Hypertension Mother CVA (cerebral vascular accident) Brother Cancer Hypertension Sister Cancer Hypertension Surgical History History of cataract extraction History of cardiac catheterization History of partial knee replacement History of arthroscopy of left knee History of transurethral resection of prostate History of tonsillectomy History of hernia repair Presence of coronary angioplasty implant and graft (~09/14/21) H/O right and left heart catheterization (11/12/18) History of thymectomy (04/23/17) Social History Smoking Status: Never smoker alcohol intake: never substance use type: does not use caffeine: No ROS Constitutional Constitutional: Denies anorexia, change in weight, chills, fatigue, fever(s), malaise, night sweats, weakness or other Eyes Eyes: Denies blurry vision, change in eye color, change in vision, discharge from eye(s), double vision, erythema, eye pain, loss of vision or other ENT HEENT: Denies abnormal hearing, dysphagia, ear pain, epistaxis, headache(s), hearing loss, nasal congestion, nasal discharge, post nasal drip, sinus pressure, sore throat or other Cardiovascular Cardiovascular: Reports chest pain, rapid heart rate and other Details: Nausea/diaphoresis ; Denies claudication, dyspnea on exertion, edema, lightheadedness, orthopnea, palpitations, paroxysmal nocturnal dyspnea or syncope Respiratory/Chest Respiratory/Chest: Reports shortness of breath at rest; Denies cough, dyspnea, excessive phlegm production, hemoptysis, productive cough, shortness of breath with exertion, wheezing or other Gastrointestinal Gastrointestinal: Reports nausea; Denies abdominal pain, coffee ground emesis, constipation, diarrhea, dyspepsia, hematemesis, hematochezia, loose stools, melena, vomiting or other Genitourinary Genitourinary: Denies burning urination, difficulty urinating, dysuria, hematuria, nocturia, urinary frequency, urinary hesitancy, urinary incontinence, urinary urgency or other Musculoskeletal Musculoskeletal: Denies arthralgias, back pain, joint pain, joint stiffness, joint swelling, myalgias, neck pain or other Neurologic Neurologic: Denies abnormal gait, abnormal speech, confusion, disequilibrium, dizziness, focal weakness, headache(s), numbness, paresthesias, seizure-like activity, seizures, syncope, tingling, tremor(s) or other Psychiatric Psychiatric: Denies anxiety, depression, homicidal ideation, suicidal ideation or other Endocrine Endocrinology: Denies change in body appearance, cold intolerance, excessive sweating, heat intolerance, polydipsia, polyuria or other Hematologic/Lymphatic Hematologic/Lymphatic: Denies anemia, easy bleeding, easy bruising, lymphadenopathy or other Allergic/Immunologic Allergic/Immunologic: Denies rhinitis, hives, eczemia, asthma or other Vital Signs Vital Signs Vital Signs: 01/16/24 04:30 01/16/24 04:30 01/16/24 04:38 Temperature 98 F Temperature Source Temporal Pulse Rate 82 48 L Respiratory Rate 14 16 Respiratory Effort Normal Non-Labored Blood Pressure 130/83 H 153/85 H Blood Pressure Mean 98 107 Pulse Ox 95 95 Oxygen Delivery Method Room Air Room Air 01/16/24 04:42 01/16/24 04:44 01/16/24 04:53 Temperature Temperature Source Pulse Rate 146 H 122 H Respiratory Rate 19 H Respiratory Effort Blood Pressure 119/90 H Blood Pressure Mean 99 Pulse Ox 96 96 Oxygen Delivery Method Room Air Room Air 01/16/24 04:56 01/16/24 04:59 01/16/24 05:02 Temperature Temperature Source Pulse Rate 56 L 52 L 63 Respiratory Rate 17 Respiratory Effort Blood Pressure 129/74 H 129/74 H Blood Pressure Mean 92 Pulse Ox 96 Oxygen Delivery Method Room Air 01/16/24 05:23 01/16/24 06:13 01/16/24 06:19 Temperature 98 F Temperature Source Pulse Rate 52 L 51 L Respiratory Rate 15 16 Respiratory Effort Blood Pressure 132/81 H 135/75 H Blood Pressure Mean 98 95 Pulse Ox 97 94 87 Oxygen Delivery Method Room Air Room Air Weight Weight: 70.261 kg Body Mass Index (BMI) 26.6 Physical Exam Const alert, oriented x3, no apparent distress, average body habitus and well nourished Constitutional Narrative: Older, white male, lying in bed, affect is flat but patient does not appear uncomfortable currently, at bedside, patient does not toxic appearing General Appearance: cooperative HEENT normocephalic, head/scalp atraumatic, hearing grossly normal bilaterally and moist oral mucous membranes HEENT Narrative: Mallampati 2, no thrush Eyes PERRL, EOMs intact bilaterally and conjunctivae normal Eyes Narrative: No scleral icterus Neck no lymphadenopathy and supple Resp normal respiratory effort, no retractions, no use of accessory muscles and clear to auscultation bilaterally Auscultation: Negative for rales, rhonchi or wheezes Cardio S1 normal heart sound, no rub, no gallops and no clicks; Negative for S2 normal heart sound or no murmurs Cardio Narrative: Bradycardia with irregularly irregular rhythm, 4 out of 6 systolic murmur loudest at right upper sternal border that radiates to bilateral carotids, soft S2 GI normal to inspection, nondistended, normoactive bowel sounds, soft to palpation and non-tender Extremity no clubbing, cyanosis or edema Extremity Narrative: Radial and pedal pulses are 2+ Skin no rashes or lesions noted, no wounds, skin turgor normal, no petechiae and no mottling Neuro oriented x3, CN's II-XII intact bilaterally, moves all extremities and no focal motor deficits Speech: speech normal Psych Psych Narrative: Affect is flattened mood seems mildly depressed Results Lab / Micro Data 01/16/24 04:51 01/16/24 04:51 Labs: Laboratory Results - last 24 hr 01/16/24 04:51: WBC 7.8, RBC 5.32, Hgb 15.5, Hct 48.1, MCV 90.4, MCH 29.1, MCHC 32.2, RDW Std Deviation 57.6 H, RDW Coeff of Eddie 17.5 H, Plt Count 303, MPV 9.2, Immature Gran % (Auto) 0.500, Neut % (Auto) 68.8, Lymph % (Auto) 13.7 L, [place] % (Auto) 10.8 H, Eos % (Auto) 5.4 H, Baso % (Auto) 0.8, Absolute Neuts (auto) 5.3, Absolute Lymphs (auto) 1.06, Nucleated RBC % 0, PT 22.2 H, INR 2.0, Sodium 139, Potassium 3.9, Chloride 106, Carbon Dioxide 28.0, Anion Gap 5, BUN 21 H, Creatinine 1.09, Estim Creat Clear Calc 45.26, Est GFR (MDRD) Af Amer 84, Est GFR (MDRD) Non-Af 69, BUN/Creatinine Ratio 19.3, Glucose 145 H, Calcium 8.9, Troponin I High Sens 14 Assessment & Plan Assessment/Plan (1) Chest pain: (2) Supraventricular tachycardia: PLAN: Plan Chest pain -Similar to previous with MS -EKG shows ST depression in anterior lateral leads when in SVT however resolution with improved heart rate -Continue Nitropaste -Initial troponin was 14 but will cycle cardiac enzymes -Check echocardiogram -Hold Coumadin -Continue home aspirin and beta-shawn -Patient with VINEET inhibitor allergy -Last stent was in 2021 and is no longer taking Plavix as he is fully anticoagulated with warfarin at baseline and triple therapy is being avoided -Consult cardiology as patient will likely need cardiac catheterization -Anticipate heart cath Thursday as long as patient remains stable -Case was discussed with Dr. Right abad by emergency department Paroxysmal atrial fibrillation -Hold Coumadin for anticipated cardiac catheterization and restart once okay with cardiology -Continue home beta-shawn -Continue home amiodarone -Monitor on telemetry Aortic stenosis -Moderately severe on last echocardiogram per cardiology documentation at last outpatient visit -Check echocardiogram -Avoid marked afterload reduction CAD/essential hypertension/hyperlipidemia -Continue home carvedilol -Continue home aspirin -Continue amlodipine -Previous PTCA/JOSEFINA and patient developed in-stent stenosis with recurrent PTCA done 2 years ago -It appears stent placement was only performed at first and he had balloon angioplasty when he developed in-stent stenosis Hypothyroidism -Continue home levothyroxine -Check TSH History of BPH without obstruction -Patient is not on any chronic medications -Monitor for issues urinating -History of TURP Carotid artery stenosis -Duplex done on 11/18/2023 -Less than 50% bilateral carotid internal artery stenosis with patent antegrade vertebral flow -Continue medical therapy DVT prophylaxis -Patient is fully anticoagulated with a therapeutic INR at this time at 2.0 -When INR drops below 2.0 we will need to initiate SCDs versus chemoprophylaxis CODE STATUS -Full code as verified at the time of admission Charges/Coding Visit Charges Inpatient E&M: 87208 Init Hosp L2
--- NOTE | 2024-01-16 06:57 | PCM.PN.HOSP ---
Reason for Visit Reason for Visit: Diagnoses Supraventricular tachycardia, unspecified (01/16/24) Chest pain, unspecified (01/16/24) Subjective Subjective Patient with improvement of chest discomfort since initial ED arrival as he had reported approximately 7 out of 10 in severity chest discomfort at that time now down to 2 out of 10 in severity but still reports it is sharp stabbing/aching but denies any current dyspnea, diaphoresis, nausea or emesis. Patient and with several questions regarding plan of care and discussed increase of troponin now consistent with NSTEMI presentation with hold on Coumadin with INR now 2.0 and repeat in the morning and once less than plan to initiate likely heparin therapy if ongoing trending upward troponin and likely cardiac catheterization on Thursday as well as echocardiogram today. Patient denies fevers, chills, nausea, emesis, abdominal pain, dyspnea. Objective Data Objective Data Vital Signs: Vital Signs Temp Pulse Resp BP Pulse Ox O2 Del Method O2 Flow Rate 98 F 51 L 16 135/75 H 96 Nasal Cannula 2 01/16/24 06:13 01/16/24 06:13 01/16/24 06:13 01/16/24 06:13 01/16/24 06:23 01/16/24 06:23 01/16/24 06:23 Oxygen Flow Rate (L/min) 2 Oxygen Delivery Method Nasal Cannula Weight: 154 lb 14.4 oz Body Mass Index (BMI) 26.6 Lab / Micro Data 01/16/24 04:51 01/16/24 04:51 Labs: Laboratory Results - last 24 hr 01/16/24 04:51: WBC 7.8, RBC 5.32, Hgb 15.5, Hct 48.1, MCV 90.4, MCH 29.1, MCHC 32.2, RDW Std Deviation 57.6 H, RDW Coeff of Eddie 17.5 H, Plt Count 303, MPV 9.2, Immature Gran % (Auto) 0.500, Neut % (Auto) 68.8, Lymph % (Auto) 13.7 L, [place] % (Auto) 10.8 H, Eos % (Auto) 5.4 H, Baso % (Auto) 0.8, Absolute Neuts (auto) 5.3, Absolute Lymphs (auto) 1.06, Nucleated RBC % 0, PT 22.2 H, INR 2.0, Sodium 139, Potassium 3.9, Chloride 106, Carbon Dioxide 28.0, Anion Gap 5, BUN 21 H, Creatinine 1.09, Estim Creat Clear Calc 45.26, Est GFR (MDRD) Af Amer 84, Est GFR (MDRD) Non-Af 69, BUN/Creatinine Ratio 19.3, Glucose 145 H, Calcium 8.9, Troponin I High Sens 14 Radiography Diagnostic Testing: Radiology Impression Chest X-Ray 01/16/24 04:41 IMPRESSION: No evidence of active intrathoracic disease. Electronically Signed: Carly Mosley MD at 6:19 EDT , Physical Exam Narrative Physical Examination: General: Awake, alert, oriented x 3 and cooperative, seated upright in the PCU bed, notes chest discomfort improvement still 2 out of 10 in severity. Skin: Normal color, normal turgor, no icterus, no cyanosis. HEENT: AT/NC, EOMI, PERRLA, dry MM. Lungs: Diminished, greater bases, appropriate effort, no evidence of distress, no rales, ronchi or wheezing. Heart: Regular rate and rhythm; no gallop, rub audible. Abdomen: Soft, NTTP, ND, mildly hyperactive BS. Extremities: No cyanosis, clubbing, or edema. Neurological: Patient awake, alert, oriented as noted, cognitive function intact; pupils equally reactive to light and accommodation, cranial nerves II-XII grossly normal, moving all 4 extremities, no focal deficits, strength moderately globally decreased secondary to acute presentation. Psychiatric: Affect appears fatigued otherwise normal, no acute evidence of depressive or anxiety feelings. Assessment & Plan Assessment/Plan (1) Chest pain: (2) Supraventricular tachycardia: PLAN: Plan The patient is a n 78 y/o M w/ PMHx: CAD s/p PCI, PAF, Valvular Heart Disease, BPH without obstruction s/p TURP, HTN, HLD, Hx Thymoma s/p thymectomy w/ resulting Hypothyroidism, Hx SVT, Carotid disease, SERGO non-complaint w/ PAP therapy, #1. Chest Pain w/ Acute NSTEMI: EKG in ED w/ sinus rhythm with ST depressions in the anterior leads I and episodes of SVT otherwise improved with rate control, CXR w/ no acute cardiopulmonary findings, initial troponin 14 upon admission however gloria following. Admitted to PCU, maintain on a monitored bed, serial cardiac enzymes continued with enzyme trend initial 14-> 1817-> 5722, will repeat EKGs as needed and per cardiology protocol, Magnesium 2.1, as noted holding Coumadin with admission presentation INR 2.0 and 1 subtherapeutic consideration of heparin drip until cardiac catheterization likely Thursday. Continued on medical therapy including aspirin, Plavix added per cardiology, Coreg, not on VINEET inhibitor/ARB but will defer to cardiology discretion, continue Nitropaste. FLP obtained with noted total cholesterol 195, triglyceride 108, LDL 116, VLDL 22, HDL 57. ECHO requested. Cardiology consulted and following. #2. CAD: s/p PCI LAD and balloon angioplasty to the ostium of the diagonal 11/2018 with then 08/2021 PCI and stent to the proximal LAD using a drug-eluting stent 3 x 32 mm and then staged intervention 09/2021 for a drug-eluting stent to proximal OM1. Will continue aspirin, Plavix added per cardiology, holding Coumadin with presentation INR 2.0 as noted for cardiac catheterization, statin intolerance as noted with FLP as noted above, continue Coreg, not on VINEET inhibitor/ARB. #3. PAF: Continued on patient home Coreg as well as amiodarone regimen which cardiology increased to 200 mg, holding Coumadin with presentation INR 2.0, consideration as noted above for transition to heparin drip once subtherapeutic given NSTEMI presentation. #4. PSVT: We will continue patient home Coreg regimen as well as amiodarone regimen which cardiology increased to 200 mg, TSH 2.050, magnesium 2.1, potassium 3.9, continue to trend electrolytes, maintain on telemetry monitoring as noted in the setting of #1. #5. Valvular Heart Disease: Most recent echocardiogram noted 07/31/2023 with EF 65%, LA mildly enlarged, trivial MVI, moderate aortic stenosis, trivial AV insufficiency. Repeat echocardiogram pending given #1 as noted. #6. BPH without obstruction: S/p TURP, continue patient home finasteride regimen, encouraged follow-up with urology outpatient as previously arranged. #7. Hypertension: Continue home regimen including Coreg, amlodipine, PRN hydralazine. #8. Hyperlipidemia: Noted severe myalgia history, FLP obtained with noted total cholesterol 195, triglyceride 108, LDL 116, VLDL 22, HDL 57. #9. Hx Thymoma s/p thymectomy w/ resulting Hypothyroidism: As noted status post thymectomy, will continue patient home levothyroxine regimen, TSH upon presentation to 0.050 #10. Carotid disease: Continued on aspirin therapy, Plavix added per cardiology, holding Coumadin with presentation INR 2.0 for planned cardiac catheterization as noted, most recent carotid duplex 11/20/2023 with irregular heterogeneous calcific plaque with shadowing at the proximal right and left internal carotid artery with less than 50% stenosis, less than 50% stenosis right and left external carotid artery. #11. SERGO: Patient non-complaint w/ PAP therapy, encouraging him to try at least inpatient, will order CPAP but if patient is able or unwilling to utilize supplemental oxygen nightly. #12. DVT Prophylaxs: Presentation INR 2.0, holding coumadin, repeat INR in AM, given risking troponin low threshold to start heparin drip with then hold for cardiac catheterization Thursday. #13. CODE STATUS: Full Code. Charges/Coding Procedures Hospitalists Procedures: Other Procedure - See Report ([id number] billing code, same day of admission, unable to bill further.)
[2024-01-16 07:03] LABS: Reflex Troponin-HS? (from REC) Y
--- NOTE | 2024-01-16 07:08 | EKG12_ITS ---
Test Reason : CP ADMIT Blood Pressure : / mmHG Vent. Rate : 051 BPM Atrial Rate : 051 BPM P-R Int : 194 ms QRS Dur : 140 ms QT Int : 490 ms P-R-T Axes : 016 -47 -28 degrees QTc Int : 451 ms Sinus bradycardia with Premature atrial complexes Right bundle branch block Left anterior fascicular block Bifascicular block Abnormal ECG When compared with ECG of 16-JAN-2024 05:03, MANUAL COMPARISON REQUIRED, DATA IS UNCONFIRMED Confirmed by Олег Ortiz ([id number]), publication editor JORY FELIZ ([id number]) on 01/18/2024 1:57:19 PM Referred By: RODRIGO Confirmed By:Олег Ortiz
--- NOTE | 2024-01-16 07:08 | ECHOD_ITS ---
Reason For Study: CHEST PAIN Procedure This was a 2D Doppler, Color Flow transthoracic echocardiogram. Exam performed portable in patient room. Left Ventricle Moderate concentric left ventricular hypertrophy. Normal LV size. The left ventricular ejection fraction is 65 %. Diastolic function is indeterminate. Right Ventricle Normal right ventricle. Atria The left atrium is mildly enlarged. Normal right atrium. Mitral Valve Moderate mitral annular calcification. Mild (1+) mitral valve insufficiency. Tricuspid Valve Mild tricuspid valve insufficiency. Normal pulmonary artery pressure. Aortic Valve Severe diffuse aortic valve calcification. Moderate aortic valve stenosis with mild regurgitation. Pulmonic Valve The pulmonic valve is not well visualized. Great Vessels Normal sized aortic root. Pericardium/Pleural No pericardial effusion. MMode/2D Measurements & Calculations LVIDd: 5.4 cm IVSd: 1.6 cm LVOT diam: 2.5 cm LVIDs: 3.7 cm LVPWd: 1.2 cm LVOT area: 4.8 cm2 RVDd: 3.6 cm FS: 32.6 % Ao root diam: 3.4 cm LAV(MOD-bp): 111.4 ml LVAd ap4: 33.5 cm2 LA dimension: 3.5 cm LAV(MOD-bp) Indexed: 63.5 ml/m2 LVLd ap4: 8.7 cm LAV(MOD-sp2): 111.6 ml EDV(MOD-sp4): 108.6 ml LAV(MOD-sp4): 115.3 ml EDV(sp4-el): 109.3 ml LVAs ap4: 21.4 cm2 LVLs ap4: 7.6 cm ESV(MOD-sp4): 51.5 ml ESV(sp4-el): 51.5 ml EF(MOD-sp4): 52.6 % EF(sp4-el): 52.9 % SV(MOD-sp4): 57.1 ml SV(sp4-el): 57.8 ml LA A4 area: 29.6 cm2 RA A4 area: 13.3 cm2 TAPSE: 1.7 cm Time Measurements MV dec time: 0.29 sec Doppler Measurements & Calculations MV E max kevin: 78.5 cm/sec Lat Peak E' Kevin: 9.4 cm/sec Med Peak E' Kevin: 5.1 cm/sec MV A max kevin: 96.1 cm/sec E/E' lat: 8.4 E/E' med: 15.4 MV E/A: 0.82 MV V2 max: 96.9 cm/sec MV P1/2t max kevin: 99.5 cm/sec Ao V2 max: 351.3 cm/sec MV max P.8 mmHg MV P1/2t: 70.5 msec Ao max P.4 mmHg MV V2 mean: 50.3 cm/sec Ao V2 mean: 268.6 cm/sec MV mean P.2 mmHg MV dec slope: 413.2 cm/sec2 Ao mean P.2 mmHg MV V2 VTI: 40.0 cm MVA(P1/2t): 3.1 cm2 Ao V2 VTI: 90.1 cm AV (velocity ratio): 0.21 MVA(VTI): 2.3 cm2 NADGEE(I,D): 1.0 cm2 NADEGE(V,D): 1.0 cm2 LV V1 max: 75.7 cm/sec SV(LVOT): 91.8 ml PA V2 max: 108.0 cm/sec LV V1 max P.3 mmHg PA V2 mean: 70.4 cm/sec LV V1 mean P.3 mmHg PA V2 VTI: 19.6 cm LV V1 mean: 53.5 cm/sec LV V1 VTI: 19.1 cm TR max kevin: 231.3 cm/sec TR max P.4 mmHg ECHO/Echo Complete Interpretation Summary Moderate concentric left ventricular hypertrophy. The left ventricular ejection fraction is 65 %. Diastolic function is indeterminate. The left atrium is mildly enlarged. Moderate mitral annular calcification. Mild (1+) mitral valve insufficiency. Mild tricuspid valve insufficiency. Severe diffuse aortic valve calcification. Moderate aortic valve stenosis with mild regurgitation. Ordering Physician: Dulce Espana Referring Physician: Fatimah Hammond Performed By: Abbie Robert RDCS, RVT
--- NOTE | 2024-01-16 08:35 | NURSING ---
01/16/24@0711- RT notified pt arrived to PCU room 115 from ED and that an EKG was ordered upon arrival.
[2024-01-16 09:05] LABS: Cholesterol 195 mg/dL (200); High Density Lipoprotein 57 mg/dL; Triglycerides 108 mg/dL; Troponin-I HS 1817 pg/mL (3.0-78.0); Very Low Density Lipoprotein 22 mg/dL (5-40)
--- NOTE | 2024-01-16 09:45 | CASEMGMT ---
RN CM Face to Face with patient for initial transition planning/care coordination assessment. RN CM introduced self and role at [facility]. Patient lying in bed, alert and oriented, family at bedside. Patient willing to participate in assessment and is able to answer all questions appropriately. Care providers, pharmacy, and demographics verified. Strata: 2 PCP: Manish Specialists: Angel, collection technician; Anali, urologist; Preferred Pharmacy: [facility] Insurance: [facility], [employer] Prescription Benefit: yes Living Will/HPOA: yes, Trina Schaeffer LNOK: self, Living Arrangements: Patient lives with in a 2 story home with bed and bath on first floor, 1 step to enter. Patient is independent at home. Transportation: self, DME/HHC: Patient has cane and walker at home. No previous HHC or SNF. Patient wishes to discharge home, denies need for home health at this time. Patient states he has no further needs or concerns at this time. CM to follow for discharge planning needs that may arise. Disposition Plan: Patient to discharge home with family support and follow-up plans in place. Lela HERNÁNDEZ, RN, CM
[2024-01-16 09:50] LABS: Magnesium 2.1 mg/dL (1.6-2.6)
--- NOTE | 2024-01-16 11:00 | CASEMGMT ---
Social Work LW/POA both scanned into [employer], Trina Schaeffer is listed as healthcare POA. BETI Peters
[2024-01-16 12:03] LABS: Troponin-I HS 5722 pg/mL (3.0-78.0)
[2024-01-16] MEDS: Finasteride 5 MG Tablet PO (12:23)
[2024-01-16] MEDS: Aspirin E.C. 81 MG Tablet PO (12:24)
[2024-01-16] MEDS: amLODIPine 2.5 MG Tablet PO (12:24)
[2024-01-16] MEDS: Carvedilol 12.5 MG Tablet PO ×2 (12:24→16:51)
[2024-01-16] MEDS: Levothyroxine 100 MCG Tablet PO (12:25)
[2024-01-16] MEDS: Amiodarone 200 MG Tablet 100 MG PO (12:25)
[2024-01-16] MEDS: 0.9% Saline Lock 10 ML Syringe IV (12:26)
--- NOTE | 2024-01-16 12:27 | CON.PCM.CA_ITS ---
Assessment & Plan Assessment/Plan (1) Non-STEMI (non-ST elevated myocardial infarction): PLAN: Continue aspirin. Start on clopidogrel. Patient was on warfarin at home. Therapeutic INR. Given the patient's history of significant CAD, I recommend coronary angiography with possible revascularization. Risks benefits and alternatives explained to patient in detail. He understand these and wishes to proceed. We will tentatively schedule the procedure for this coming Thursday. (2) History of CAD (coronary artery disease): PLAN: See #1 above. (3) Paroxysmal A-fib: PLAN: Back to sinus rhythm. Increase amiodarone to 200 mg daily. (4) Nonrheumatic aortic (valve) stenosis: PLAN: Check echocardiogram. HPI Consult Data Date of Consult: 01/16/24 HPI Narrative Reason for Consultation: NSTEMI HPI Narrative: This gentleman has past medical history significant for paroxysmal atrial fibrillation, coronary artery disease status post drug-eluting stents to the obtuse marginal and LAD, hypertension and moderate aortic valve stenosis. He presented to the hospital after he noticed palpitations last night. Per him, he felt his heart racing. About an hour later, he started having chest pains as well. In the emergency room, he was noted to be in atrial fibrillation/flutter with rapid ventricular response. He converted after an IV bolus of diltiazem. He had some residual chest pain but this morning, he is completely pain-free. 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 ST elevation (STEMI) myocardial infarction History of stress test History of echocardiogram Wears glasses Wears partial dentures Cancer Arthritis High cholesterol Easy bruising Excessive bleeding Cardiology follow-up encounter Chest pain Essential hypertension Atherosclerotic heart disease of [place] coronary artery without angina pectoris Stented coronary artery (10/01/21) Chest tightness Hematuria Hearing loss of left ear Nonrheumatic mitral valve regurgitation Nonrheumatic aortic (valve) stenosis History of pericarditis (~04/2017) Atelectasis Right inguinal hernia History of BPH History of kidney stones Thymoma, malignant Hyperlipidemia Carotid dissection, 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) SERGO (obstructive sleep apnea) Paroxysmal A-fib Hypothyroidism Chest pain Home Medications ?Medication ?Instructions ?Recorded ?Last Taken ?Type nitroglycerin 0.4 mg sublingual 0.4 mg sublingual Q5-15M PRN chest 07/30/19 08/24/24 Rx tablet pain #25 tabs lysine 500 mg tablet 500 mg PO DAILY supplement 06/09/19 01/15/24 History finasteride 5 mg tablet 5 mg PO DAILY #90 tabs 11/21/19 01/15/24 Rx cholecalciferol (vitamin D3) 25 25 mcg PO DAILY vitamin 06/27/21 01/15/24 History mcg (1,000 unit) tablet cyanocobalamin (vitamin B-12) 1,000 mcg PO DAILY vitamin 06/27/21 01/15/24 History 1,000 mcg tablet (Vitamin B-12) multivitamin 1 tab PO DAILY vitamin 07/31/21 01/15/24 History acetaminophen 500 mg tablet 1,000 mg PO TID PRN Pain 10/09/21 Unknown History amiodarone 100 mg tablet 100 mg PO DAILY #90 tabs 12/29/22 01/16/24 Rx amlodipine 2.5 mg tablet 2.5 mg PO DAILY #90 tabs 02/23/23 01/16/24 Rx warfarin 7.5 mg tablet 7.5 mg PO MOWEFR@1700 blood thinner 07/07/23 01/15/24 History levothyroxine 100 mcg capsule 100 mcg PO DAILY thyroid 11/05/23 01/15/24 History carvedilol 12.5 mg tablet (Coreg) 12.5 mg PO BID #180 tabs 11/20/23 01/15/24 Rx aspirin 81 mg tablet,delayed 81 mg PO QODAY 01/16/24 01/15/24 History release (Adult Aspirin Regimen) ofloxacin 0.3 % eye drops 1 drp RIGHT EYE 3XD post eye sx 01/16/24 01/15/24 History prednisolone acetate 1 % eye 1 drp RIGHT EYE 3XD post eye sx 01/16/24 01/15/24 History drops,suspension warfarin 5 mg tablet 5 mg PO SUTUTHSA@1700 blood thinner 01/16/24 01/14/24 History Allergy/AdvReac Type Severity Reaction Status Date / Time cefuroxime Allergy Intermediate Rash Verified 01/16/24 10:02 levofloxacin (From Levaquin) AdvReac Severe achiness Verified 01/16/24 10:02 rosuvastatin (From Crestor) AdvReac Severe severe Verified 01/16/24 10:02 myalgias lisinopril AdvReac Intermediate didn't Verified 01/16/24 10:02 control bp well, labile cephalexin AdvReac Pain in Verified 01/16/24 10:02 joints Family History Father Heart disease Hypertension Mother CVA (cerebral vascular accident) Brother Cancer Hypertension Sister Cancer Hypertension Surgical History History of cataract extraction History of cardiac catheterization History of partial knee replacement History of arthroscopy of left knee History of transurethral resection of prostate History of tonsillectomy History of hernia repair Presence of coronary angioplasty implant and graft (~09/14/21) H/O right and left heart catheterization (11/12/18) History of thymectomy (04/23/17) Social History Smoking Status: Never smoker alcohol intake: never substance use type: does not use caffeine: No Physical Exam Narrative Comfortable. Lying flat in the bed. No apparent distress. Heart sounds 1 and 2 are noted. 3/6 systolic murmur at apex and base. Chest clear to auscultation bilaterally. Alert oriented x 3. No ankle edema noted. Risk Stratification Risk Stratification Applicable: No Objective Data Vital Signs: Vital Signs Temp Pulse Resp BP Pulse Ox O2 Del Method O2 Flow Rate 98 F 51 L 16 135/75 H 92 Nasal Cannula 1 01/16/24 06:13 01/16/24 06:13 01/16/24 06:13 01/16/24 06:13 01/16/24 10:23 01/16/24 10:23 01/16/24 10:23 Oxygen Flow Rate (L/min) 1 Oxygen Delivery Method Nasal Cannula Weight: 154 lb 15.759 oz Body Mass Index (BMI) 25.7 Lab / Micro Data 01/16/24 04:51 01/16/24 04:51 Labs: Laboratory Results - last 24 hr 01/16/24 04:51: WBC 7.8, RBC 5.32, Hgb 15.5, Hct 48.1, MCV 90.4, MCH 29.1, MCHC 32.2, RDW Std Deviation 57.6 H, RDW Coeff of Eddie 17.5 H, Plt Count 303, MPV 9.2, Immature Gran % (Auto) 0.500, Neut % (Auto) 68.8, Lymph % (Auto) 13.7 L, [place] % (Auto) 10.8 H, Eos % (Auto) 5.4 H, Baso % (Auto) 0.8, Absolute Neuts (auto) 5.3, Absolute Lymphs (auto) 1.06, Nucleated RBC % 0, PT 22.2 H, INR 2.0, Sodium 139, Potassium 3.9, Chloride 106, Carbon Dioxide 28.0, Anion Gap 5, BUN 21 H, Creatinine 1.09, Estim Creat Clear Calc 45.26, Est GFR (MDRD) Af Amer 84, Est GFR (MDRD) Non-Af 69, BUN/Creatinine Ratio 19.3, Glucose 145 H, Calcium 8.9, Phosphorus 3.0, Magnesium 2.1, Troponin I High Sens 14, TSH 2.050 01/16/24 07:50: Troponin I High Sens 1817 H*, Triglycerides 108, Cholesterol 195, LDL Cholesterol 116, VLDL Cholesterol 22, HDL Cholesterol 57 01/16/24 10:19: Troponin I High Sens 5722 H* Rhythm Strip Rhythm Strip: Sinus Rhythm Cardiology Labs/Tests 01/16/24 04:51: WBC 7.8, RBC 5.32, Hgb 15.5, Hct 48.1, MCV 90.4, MCH 29.1, MCHC 32.2, Plt Count 303, MPV 9.2, Immature Gran % (Auto) 0.500, Neut % (Auto) 68.8, Lymph % (Auto) 13.7 L, [place] % (Auto) 10.8 H, Eos % (Auto) 5.4 H, Baso % (Auto) 0.8, Absolute Neuts (auto) 5.3, Nucleated RBC % 0, PT 22.2 H, INR 2.0, Sodium 139, Potassium 3.9, Chloride 106, Carbon Dioxide 28.0, Anion Gap 5, BUN 21 H, Creatinine 1.09, Est GFR (MDRD) Af Amer 84, Est GFR (MDRD) Non-Af 69, BUN/Creatinine Ratio 19.3, Glucose 145 H, Calcium 8.9, Phosphorus 3.0, Magnesium 2.1 01/16/24 07:50: Triglycerides 108, Cholesterol 195, LDL Cholesterol 116, VLDL Cholesterol 22, HDL Cholesterol 57 Rhythm: EKG: Initial ECG in the emergency room showed atrial flutter/fibrillation with rapid ventricular response. Subsequent ECG with sinus bradycardia. ECHO: Stress Test: Cardiac Cath: PCI: CT Surgery: Holter monitor: EPS: PPM: CXR: Chest CT Scan: Radiography Diagnostic Testing: Radiology Impression Chest X-Ray 01/16/24 04:41 IMPRESSION: No evidence of active intrathoracic disease. Electronically Signed: Carly Mosley MD at 6:19 EDT ,
[2024-01-16] MEDS: Clopidogrel Bisulfate 300 MG Tablet PO (14:20)
[2024-01-16] MEDS: Acetaminophen 325 MG Tablet 650 MG PO (16:52)
[2024-01-16] MEDS: prednisoLONE eye drops (5 mL) 1 DROP OPTH.BTL 1 DRP RIGHT EYE (21:12)
[2024-01-17 03:15] VITALS: O2SAT 98
[2024-01-17 03:20] VITALS: BP 148/72; PULSE 58; RESP 18; TEMP 36.6; O2SAT 98
[2024-01-17] MEDS: prednisoLONE eye drops (5 mL) 1 DROP OPTH.BTL 1 DRP RIGHT EYE ×3 (06:04→20:38)
[2024-01-17] MEDS: Levothyroxine 100 MCG Tablet PO (06:05)
[2024-01-17 06:30] LABS: International Normalized Ratio 1.7; Prothrombin Time (Protime)PT. 19.5 SECONDS (11.7-14.9)
--- NOTE | 2024-01-17 06:34 | PN.HOSP_ITS ---
Reason for Visit Reason for Visit: Diagnoses Non-ST elevation (NSTEMI) myocardial infarction (01/16/24) Nonrheumatic aortic (valve) stenosis (01/16/24) Supraventricular tachycardia, unspecified (01/16/24) Paroxysmal atrial fibrillation (01/16/24) Chest pain, unspecified (01/16/24) Personal history of other diseases of the circulatory system (01/16/24) Subjective Subjective Patient with no acute events overnight per self and per nursing report. He notes no further chest discomfort and notes that is currently resolved. Discussed his a.m. INR 1.7 however his other labs including CBC and CMP are pending. Discussed plan of care for cardiac catheterization in a.m. 01/18/24 to which he and his are amenable. Patient denies fevers, chills, nausea, emesis, abdominal pain or dyspnea. Objective Data Objective Data Vital Signs: Vital Signs Temp Pulse Resp BP Pulse Ox O2 Del Method O2 Flow Rate 97.8 F 58 L 18 148/72 H 98 Nasal Cannula 2 01/17/24 03:20 01/17/24 03:20 01/17/24 03:20 01/17/24 03:20 01/17/24 03:20 01/17/24 03:20 01/17/24 03:20 Oxygen Flow Rate (L/min) 2 Oxygen Delivery Method Nasal Cannula Weight: 154 lb 15.759 oz Body Mass Index (BMI) 25.7 Intake & Output: Intake and Output for Last 24 Hours 01/15/24 01/16/24 01/17/24 23:59 23:59 23:59 Intake Total 1632.5 / 1632.5 Balance 1632.5 / 1632.5 Lab / Micro Data 01/16/24 04:51 01/16/24 04:51 Labs: Laboratory Results - last 24 hr 01/16/24 04:51: Phosphorus 3.0, Magnesium 2.1, TSH 2.050 01/16/24 07:50: Troponin I High Sens 1817 H*, Triglycerides 108, Cholesterol 195, LDL Cholesterol 116, VLDL Cholesterol 22, HDL Cholesterol 57 01/16/24 10:19: Troponin I High Sens 5722 H* 01/17/24 05:35: PT 19.5 H, INR 1.7 Rhythm Strip Rhythm Strip: Sinus Rhythm Physical Exam Narrative Physical Examination: General: Awake, alert, oriented x 3 and cooperative, seated upright in the PCU bed, denies any current chest discomfort. Skin: Normal color, normal turgor, no icterus, no cyanosis. HEENT: AT/NC, EOMI, PERRLA, MMM. Lungs: Diminished, greater bases, appropriate effort, no evidence of distress, no rales, ronchi or wheezing. Heart: Regular rate and rhythm; no gallop, rub audible. Abdomen: Soft, NTTP, ND, mildly hyperactive BS. Extremities: No cyanosis, clubbing, or edema. Neurological: Patient awake, alert, oriented as noted, cognitive function intact; pupils equally reactive to light and accommodation, cranial nerves II- XII grossly normal, moving all 4 extremities, no focal deficits, strength improved, mildly to moderately globally decreased secondary to acute presentation. Psychiatric: Affect appears flat, no acute evidence of depressive or anxiety feelings. Assessment & Plan Assessment/Plan (1) Chest pain: (2) Supraventricular tachycardia: PLAN: Plan The patient is a n 78 y/o M w/ PMHx: CAD s/p PCI, PAF, Valvular Heart Disease, BPH without obstruction s/p TURP, HTN, HLD, Hx Thymoma s/p thymectomy w/ resulting Hypothyroidism, Hx SVT, Carotid disease, SERGO non-complaint w/ PAP therapy, #1. Chest Pain w/ Acute NSTEMI: EKG in ED w/ sinus rhythm with ST depressions in the anterior leads I and episodes of SVT otherwise improved with rate control, CXR w/ no acute cardiopulmonary findings, initial troponin 14 upon admission however gloria following. Admitted to PCU, maintain on a monitored bed, serial cardiac enzymes continued with enzyme trend initial 14-> 1817-> 5722, will repeat EKGs as needed and per cardiology protocol, Magnesium 2.1, holding Coumadin with admission presentation INR 2.0->01/17/24 INR 1.7, continue to trend. Continued on medical therapy including aspirin, Plavix added per cardiology, Coreg, not on VINEET inhibitor/ARB but will defer to cardiology discretion, continue Nitropaste. FLP obtained with noted total cholesterol 195, triglyceride 108, LDL 116, VLDL 22, HDL 57. ECHO requested. Cardiology consulted and following with plan tentatively for cardiac catheterization 01/18/24. #2. CAD: s/p PCI LAD and balloon angioplasty to the ostium of the diagonal 11/2018 with then 08/2021 PCI and stent to the proximal LAD using a drug-eluting stent 3 x 32 mm and then staged intervention 09/2021 for a drug-eluting stent to proximal OM1. Will continue aspirin, Plavix added per cardiology, holding Coumadin for cardiac catheterization, statin intolerance as noted with FLP as noted above, continue Coreg, not on VINEET inhibitor/ARB. #3. PAF: Continued on patient home Coreg as well as amiodarone regimen which cardiology increased to 200 mg, holding Coumadin. #4. PSVT: We will continue patient home Coreg regimen as well as amiodarone regimen which cardiology increased to 200 mg, TSH 2.050, magnesium 2.1, potassium 3.9, continue to trend electrolytes, maintain on telemetry monitoring as noted in the setting of #1. #5. Valvular Heart Disease: Most recent echocardiogram noted 07/31/2023 with EF 65%, LA mildly enlarged, trivial MVI, moderate aortic stenosis, trivial AV insufficiency. Repeat echocardiogram pending given #1 as noted. #6. BPH without obstruction: S/p TURP, continue patient home finasteride regimen, encouraged follow-up with urology outpatient as previously arranged. #7. Hypertension: Continue home regimen including Coreg, amlodipine, PRN hydralazine. #8. Hyperlipidemia: Noted severe myalgia history, FLP obtained with noted total cholesterol 195, triglyceride 108, LDL 116, VLDL 22, HDL 57. #9. Hx Thymoma s/p thymectomy w/ resulting Hypothyroidism: As noted status post thymectomy, will continue patient home levothyroxine regimen, TSH upon presentation to 2.050 #10. Carotid disease: Continued on aspirin therapy, Plavix added per cardiology, holding Coumadin with presentation INR 2.0 for planned cardiac catheterization as noted, most recent carotid duplex 11/20/2023 with irregular heterogeneous calcific plaque with shadowing at the proximal right and left internal carotid artery with less than 50% stenosis, less than 50% stenosis right and left external carotid artery. #11. SERGO: Patient non-complaint w/ PAP therapy, encouraging him to try at least inpatient, will order CPAP but if patient is able or unwilling to utilize supplemental oxygen nightly. #12. DVT Prophylaxs: Presentation INR 2.0, holding coumadin, 01/17/24 INR 1.7, continue to trend. #13. CODE STATUS: Full Code. Charges/Coding Visit Charges Inpatient E&M: 72319 Subs Hosp L2
[2024-01-17 08:12] VITALS: O2SAT 96
[2024-01-17 09:20] VITALS: BP 149/94; PULSE 55; RESP 16; TEMP 36.5; O2SAT 97
[2024-01-17] MEDS: Amiodarone 200 MG Tablet PO (11:23)
[2024-01-17] MEDS: Carvedilol 12.5 MG Tablet PO ×2 (11:24→16:23)
[2024-01-17] MEDS: Clopidogrel Bisulfate 75 MG Tablet PO (11:24)
[2024-01-17] MEDS: amLODIPine 2.5 MG Tablet PO (11:24)
[2024-01-17] MEDS: Aspirin E.C. 81 MG Tablet PO (11:24)
[2024-01-17] MEDS: Finasteride 5 MG Tablet PO (11:25)
[2024-01-17] MEDS: 0.9% Saline Lock 10 ML Syringe IV (11:30)
--- NOTE | 2024-01-17 13:52 | PCM.PN.CARD ---
Subjective Subjective Denies any complaints today. No further episodes of chest pain. Objective Data Vital Signs: Vital Signs Temp Pulse Resp BP Pulse Ox O2 Del Method O2 Flow Rate 97.7 F L 55 L 16 149/94 H 97 Nasal Cannula 2 01/17/24 09:20 01/17/24 09:20 01/17/24 09:20 01/17/24 09:20 01/17/24 09:20 01/17/24 10:00 01/17/24 10:00 Oxygen Flow Rate (L/min) 2 Oxygen Delivery Method Nasal Cannula Weight: 154 lb 15.759 oz Body Mass Index (BMI) 25.7 Intake & Output: Intake and Output for Last 24 Hours 01/15/24 01/16/24 01/17/24 23:59 23:59 23:59 Intake Total 1632.5 / 1632.5 740 / 740 Balance 1632.5 / 1632.5 740 / 740 Lab / Micro Data 01/16/24 04:51 01/16/24 04:51 Labs: Laboratory Results - last 24 hr 01/17/24 05:35: PT 19.5 H, INR 1.7 Rhythm Strip Rhythm Strip: Sinus Rhythm Cardiology Labs/Tests 01/17/24 05:35: PT 19.5 H, INR 1.7 Rhythm: EKG: ECHO: Stress Test: Cardiac Cath: PCI: CT Surgery: Holter monitor: EPS: PPM: CXR: Chest CT Scan: Radiography Diagnostic Testing: Radiology Impression Echocardiogram 01/16/24 07:08 Interpretation Summary Moderate concentric left ventricular hypertrophy. The left ventricular ejection fraction is 65 %. Diastolic function is indeterminate. The left atrium is mildly enlarged. Moderate mitral annular calcification. Mild (1+) mitral valve insufficiency. Mild tricuspid valve insufficiency. Severe diffuse aortic valve calcification. Moderate aortic valve stenosis with mild regurgitation. Ordering Physician: Dulce Espana Referring Physician: Fatimah Hammond Performed By: Abbie Robert, DELMA, RVT Physical Exam Narrative Comfortable. Lying flat in the bed. No apparent distress. Heart sounds 1 and 2 are noted. 3/6 systolic murmur at apex and base. Chest clear to auscultation bilaterally. Alert oriented x 3. No ankle edema noted. Assessment & Plan Assessment/Plan (1) Non-STEMI (non-ST elevated myocardial infarction): PLAN: For coronary angiography in the morning. (2) History of CAD (coronary artery disease): PLAN: See #1 above. (3) Paroxysmal A-fib: PLAN: Back to sinus rhythm. Increase amiodarone to 200 mg daily. (4) Nonrheumatic aortic (valve) stenosis: PLAN: Moderate aortic valve stenosis on echocardiogram.
[2024-01-17 15:20] VITALS: BP 135/86; PULSE 59; RESP 14; TEMP 36.8; O2SAT 99
[2024-01-17 20:25] VITALS: BP 142/96; PULSE 67; RESP 18; TEMP 36.7; O2SAT 96
[2024-01-18] VITALS (17 sets, daily range): BP systolic 116–179; BP diastolic 69–112; PULSE 47–66; RESP 16–18; TEMP 36.4–36.8; O2SAT 92–100
[2024-01-18] MEDS: Acetaminophen 325 MG Tablet 650 MG PO (05:31)
[2024-01-18] MEDS: Carvedilol 12.5 MG Tablet PO ×2 (05:32→17:18)
[2024-01-18] MEDS: prednisoLONE eye drops (5 mL) 1 DROP OPTH.BTL 1 DRP RIGHT EYE ×3 (05:32→21:37)
[2024-01-18] MEDS: Levothyroxine 100 MCG Tablet PO (05:34)
[2024-01-18] MEDS: Aspirin E.C. 81 MG Tablet PO (05:34)
[2024-01-18] MEDS: amLODIPine 2.5 MG Tablet PO (05:35)
[2024-01-18] MEDS: Clopidogrel Bisulfate 75 MG Tablet PO (05:35)
[2024-01-18] MEDS: Amiodarone 200 MG Tablet PO (05:35)
[2024-01-18] MEDS: Nitroglycerin Oint 1 INCH PACKET TD (05:44)
[2024-01-18 05:51] LABS: Absolute Lymphocyte Count 1.18 X10^3/uL (0.83-4.51); Basophil# 0.07 X10^3/uL; Basophil% 0.8 % (0-1); Eosinophil# 0.42 X10^3/uL; Eosinophils% 4.9 % (0-5); Hematocrit 49.3 % (40-54); Lymphocyte # 1.18 X10^3/ul (0.83-4.51); Lymphocyte % 13.9 % (19-41); Mean Corp Hgb Conc 32.5 g/dL (32-36); Mean Corpuscular Hgb 29.4 pg (27.0-32.0); Mean Corpuscular Volume 90.5 fL (80-94); Mean Platelet Vol. 9.1 fl (6.2-12.0); Monocyte% 9.4 % (0-10); NRBC Flagged by Analyzer 0 % (0-5); Neutrophil % 70.5 % (47-70); Platelet Count 282 K/mm3 (150-450); RBC Distribution Width CV 17.4 % (11.6-14.6); RBC Distribution Width SD 56.6 fl (35.1-43.9); Red Blood Count 5.45 M/mm3 (4.6-6.2); White Blood Count 8.5 K/mm3 (4.4-11.0)
--- NOTE | 2024-01-18 05:55 | EKG12_ITS ---
Test Reason : CP Blood Pressure : / mmHG Vent. Rate : 054 BPM Atrial Rate : 054 BPM P-R Int : 172 ms QRS Dur : 098 ms QT Int : 450 ms P-R-T Axes : 020 -32 -09 degrees QTc Int : 426 ms Sinus bradycardia with sinus arrhythmia Left axis deviation Moderate voltage criteria for LVH, may be normal variant ( R in aVL , [place] product ) Abnormal ECG When compared with ECG of 16-JAN-2024 07:27, Premature atrial complexes are no longer Present (RBBB and left anterior fascicular block) is no longer Present Confirmed by Олег Ortiz ([id number]), associate editor JORY FELIZ ([id number]) on 01/19/2024 10:54:32 AM Referred By: Confirmed By:Олег Ortiz
[2024-01-18 06:08] LABS: International Normalized Ratio 1.3; Prothrombin Time (Protime)PT. 15.8 SECONDS (11.7-14.9)
[2024-01-18 06:30] LABS: ALB/GLOB Ratio 0.9 RATIO (0.9-2.4); AST(SGOT) 19 U/L (15-37); Alanine Aminotransfer ALT/SGPT 17 U/L (16-61); Albumin, Serum 3.4 g/dL (3.2-5.0); Alkaline Phosphatase 81 U/L (45-117); Anion Gap 4 (5-15); BUN 18 mg/dL (7-18); BUN/Creat Ratio 19.1 RATIO (10-20); Calcium,Total 9.1 mg/dL (8.5-10.1); Chloride 107 mmol/L (98-107); Creatinine, Serum 0.94 mg/dL (0.70-1.30); EST Glomerular Filtration Rate 82 mL/min (>60); Est Glom Filt Rate - Afr Amer 99 mL/min (>60); Estimated Creatinine Clearance 54.52 ml/min; Globulin 3.7 g/dL (2.2-4.2); Glucose 101 mg/dL (74-106); Potassium 3.9 mmol/L (3.5-5.1); Protein, Total 7.1 g/dL (6.4-8.2); Sodium Level 139 mmol/L (136-145)
[2024-01-18] MEDS: 0.9% Saline Lock 10 ML Syringe IV (06:34)
--- NOTE | 2024-01-18 08:12 | PCM.PN.CARD ---
Subjective Subjective Patient currently resting comfortably in the bed in no apparent distress. His enzymes did go up from 20-18 17-50 722 on a high-sensitivity troponin. INR this morning is 1.3. He is scheduled for left heart catheterization with Dr. Adams. The patient's echo showed that his aortic valve stenosis had not changed since July 2023 peak gradient was 49 mean was 31 he does have mild aortic insufficiency as well. On admission the patient appears to have been in paroxysmal atrial flutter that converted in the emergency department he is in sinus rhythm this morning. He was reinstituted on amiodarone which had been discontinued in July due to concerns about side effects. His heart rate was 50 on 100 mg daily of amiodarone. Objective Data Vital Signs: Vital Signs Temp Pulse Resp BP Pulse Ox O2 Del Method O2 Flow Rate 97.6 F L 59 L 18 146/83 H 97 Nasal Cannula 2 01/18/24 06:30 01/18/24 06:30 01/18/24 06:30 01/18/24 06:32 01/18/24 06:30 01/18/24 06:30 01/18/24 06:30 Oxygen Flow Rate (L/min) 2 Oxygen Delivery Method Nasal Cannula Weight: 154 lb 15.759 oz Body Mass Index (BMI) 25.7 Intake & Output: Intake and Output for Last 24 Hours 01/16/24 01/17/24 01/18/24 23:59 23:59 23:59 Intake Total 1632.5 / 1632.5 1640 / 1640 Balance 1632.5 / 1632.5 1640 / 1640 Lab / Micro Data Attestation: I reviewed the patient's lab results. 01/18/24 05:34 01/18/24 05:34 Labs: Laboratory Results - last 24 hr 01/18/24 05:34: WBC 8.5, RBC 5.45, Hgb 16.0, Hct 49.3, MCV 90.5, MCH 29.4, MCHC 32.5, RDW Std Deviation 56.6 H, RDW Coeff of Eddie 17.4 H, Plt Count 282, MPV 9.1, Immature Gran % (Auto) 0.500, Neut % (Auto) 70.5 H, Lymph % (Auto) 13.9 L, Tyrrell % (Auto) 9.4, Eos % (Auto) 4.9, Baso % (Auto) 0.8, Absolute Neuts (auto) 6.0, Absolute Lymphs (auto) 1.18, Nucleated RBC % 0, PT 15.8 H, INR 1.3, Sodium 139, Potassium 3.9, Chloride 107, Carbon Dioxide 28.0, Anion Gap 4 L, BUN 18, Creatinine 0.94, Estim Creat Clear Calc 54.52, Est GFR (MDRD) Af Amer 99, Est GFR (MDRD) Non-Af 82, BUN/Creatinine Ratio 19.1, Glucose 101, Calcium 9.1, Total Bilirubin 1.10 H, AST 19, ALT 17, Alkaline Phosphatase 81, Total Protein 7.1, Albumin 3.4, Globulin 3.7, Albumin/Globulin Ratio 0.9 Rhythm Strip Rhythm Strip: Sinus Rhythm Rate: 59 Cardiology Labs/Tests 01/18/24 05:34: WBC 8.5, RBC 5.45, Hgb 16.0, Hct 49.3, MCV 90.5, MCH 29.4, MCHC 32.5, Plt Count 282, MPV 9.1, Immature Gran % (Auto) 0.500, Neut % (Auto) 70.5 H, Lymph % (Auto) 13.9 L, Tyrrell % (Auto) 9.4, Eos % (Auto) 4.9, Baso % (Auto) 0.8, Absolute Neuts (auto) 6.0, Nucleated RBC % 0, PT 15.8 H, INR 1.3, Sodium 139, Potassium 3.9, Chloride 107, Carbon Dioxide 28.0, Anion Gap 4 L, BUN 18, Creatinine 0.94, Est GFR (MDRD) Af Amer 99, Est GFR (MDRD) Non-Af 82, BUN/Creatinine Ratio 19.1, Glucose 101, Calcium 9.1, Total Bilirubin 1.10 H Rhythm: EKG: ECHO: Stress Test: Cardiac Cath: PCI: CT Surgery: Holter monitor: EPS: PPM: CXR: Chest CT Scan: Radiography Diagnostic Testing: Radiology Impression Echocardiogram 01/16/24 07:08 Interpretation Summary Moderate concentric left ventricular hypertrophy. The left ventricular ejection fraction is 65 %. Diastolic function is indeterminate. The left atrium is mildly enlarged. Moderate mitral annular calcification. Mild (1+) mitral valve insufficiency. Mild tricuspid valve insufficiency. Severe diffuse aortic valve calcification. Moderate aortic valve stenosis with mild regurgitation. Ordering Physician: Dulce Espana Referring Physician: Fatimah Hammond Performed By: Abbie Robert RDCS, RVT Physical Exam Const alert and oriented x3 HEENT normocephalic Eyes EOMs intact bilaterally Neck no JVD Chest inspection of chest normal Resp normal respiratory effort and clear to auscultation bilaterally Cardio regular rate, regular rhythm, S1 normal heart sound, S2 normal heart sound, no rub and no gallops Heart Sounds: murmur systolic III/ harsh holo left sternal border and right sternal border to the neck GI soft to palpation Extremity no pedal edema Skin no rashes or lesions noted Neuro Neuro Narrative: Alert and oriented x 3 Psych mental status grossly normal Assessment & Plan Assessment/Plan (1) Supraventricular tachycardia: PLAN: Patient carries a history of paroxysmal atrial fibrillation/flutter. His amiodarone was discontinued in July 2023 due to concerns about side effects. He has remained on Coumadin his INR was 2.0 in the emergency department on admission this morning it was 1.3. It appears the patient's symptoms started with a tachycardia and he received p.o. amiodarone in the home environment by his . In the emergency department he did revert into a supraventricular tachycardia which was described as atrial flutter but I do not have rhythm strips. This converted with IV Cardizem. The patient is in sinus rhythm this morning. The plan is to obtain a left heart catheterization to rule out progressive atherosclerotic disease. If this is negative I would recommend we reinstitute amiodarone therapy. (2) Paroxysmal A-fib: PLAN: Patient has a history of paroxysmal atrial fibrillation. Previously had been treated with amiodarone but was discontinued as noted above in July 2023. Please see #1 above for future plans. (3) Nonrheumatic aortic (valve) stenosis: PLAN: The patient's moderate to moderately severe aortic stenosis is really unchanged since July 2023 peak gradient of 49 mean gradient of 31 he does have mild aortic insufficiency and a heavily calcified aortic valve. Pending the outcome of the left heart catheterization further evaluation for possible TAVR intervention may be indicated. (4) Non-STEMI (non-ST elevated myocardial infarction): PLAN: Patient's enzymes are consistent with an ischemic event. Troponins went from 20to 1817 to 5722. Patient is scheduled for left heart catheterization this morning to redefine his coronary anatomy. He has a history of previous stenting in the LAD diagonal distribution. PLAN: Plan Left heart catheterization this morning further recommendations to follow. Left heart catheterization revealed the stented segments in the proximal LAD and circumflex are widely patent. However, there is severe disease at the ostium of a large first major diagonal branch which arises from the previous stented area. This area has been stented twice with last time being 2018. There is also a distal lesion in the junction of the middle and distal thirds LAD of 60 to 70%. The patient also has moderately severe aortic stenosis with aortic insufficiency and a heavily calcified aortic valve. The patient will be continued to be treated medically and be referred to the [facility] valve clinic for heart team approach to best options for treating his given situation. The patient has a large diagonal branch which is in jeopardy as well as the distal third of the left anterior descending from a revascularization standpoint the right coronary is a huge dominant vessel without any significant disease. The patient is aortic valve is heavily calcified and he has a history of paroxysmal atrial fibs/flutter and it appears that his event that brought him to the hospital this time was precipitated by atrial tachyarrhythmias and a rapid ventricular response in the 140-150 range. In the interim until he is further evaluated the patient will be continued on amiodarone for rhythm control and he will be maintained on his Coumadin as he is tolerated it long-term. He will be referred to the [facility] TAVR clinic for heart team evaluation with Dr. Beck Santillan. This will be done on an outpatient basis. From a cardiovascular standpoint the patient should be able to be discharged tomorrow would like to have him up and ambulating today in the halls to make sure he does not have recurrence of his tachyarrhythmia. Charges/Coding Visit Charges Inpatient E&M: 00999 Subs Hosp L3
--- NOTE | 2024-01-18 10:51 | CL.D_ITS ---
Patient Name: HANG KEENAN Study Date: 01/18/2024 Performing: Zainab Adams MD Ht: 64 inches 162.56 cm : 1945 Wt: 154.98 lbs 70.3 kg Age: 78 Gender: male BSA: 1.76 PROCEDURE(S) PERFORMED [id number]-([id number])[facility] CLINICAL PROFILE AND INDICATIONS Indications: ACS > 24 hrs Heart Failure: None CAD Presentations: Non-STEMI. Symptom onset Date/Time: Time Not Available CONCLUSIONS 70% distal Mid LAD, 99% ostial jailed D1 Stent to OM patent RECOMMENDATIONS Heart team evaluation for possible CABG LAD/D1 + AVR DESCRIPTION OF PROCEDURE The patient arrived to the procedure lab. The risks and benefits of the procedure as well as a full description of our services here and current unavailability of surgical backup were fully explained to the patient and/or their significant other prior to the catheterization. The Timeout was completed, verifying the correct patient and procedure. The patient's procedural site was prepped and draped in the usual fashion. Local anesthetic was given subcutaneously to right radial region with Lidocaine 2%. Using a modified Seldinger technique, arterial access was obtained via the right radial artery, a 6Fr sheath was inserted by mariano kovacs rn Right Coronary Artery selective angiography was then performed in multiple views using a 5 Fr. 4.0 [place] catheter. Left Coronary Artery selective angiography was performed in multiple views using a 5 Fr. JL4 catheter.The arterial sheath was pulled and a TR Band was applied for hemostasis CORONARY ANGIOGRAPHY DOMINANCE: Right Dominant LEFT MAIN: Angiographically normal LEFT ANTERIOR DESCENDING ARTERY: LAD: Tubular 50% Mid lesion in LAD Tubular 70% Mid lesion in LAD DIAGONAL 1: Discrete 99% Ostial lesion in DIAG1 RIGHT CORONARY ARTERY: RCA: Tubular 30% Proximal lesion in RCA RT PDA: Tubular 30% Proximal lesion in RT PDA COMPLICATIONS No Complications PROCEDURE MEDICATIONS Versed 1 mg IV Fentanyl 50 mcg IV Oxygen: 2 L/min via nasal cannula Heparin given IA 01/18/2024 10:21:25 SUMMARY OF HEMODYNAMIC DATA Time AIR REST ECG 09:59:31 AO 150/99 (120) SA 10:23:25 Signed By Zainab Adams MD On 01/18/2024 10:50:48 Zainab Adams MD
--- NOTE | 2024-01-18 11:40 | CASEMGMT ---
Insurance review for hospitals In-network with Medicare insurance if transfer is recommended is as follows: [facility], [facility], [facility], [facility], [facility], [facility], [facility], [facility], [place], [facility] ([facility]), and . Penny Merino, Discharge Planning Asst.
[2024-01-18] MEDS: KETOROLAC TROMETHAMINE 5 ML DROPS RIGHT EYE ×2 (13:19→21:37)
[2024-01-18] MEDS: Finasteride 5 MG Tablet PO (15:01)
--- NOTE | 2024-01-18 15:02 | CHAPLAIN ---
Type of Pastoral Visit _x__ Initial Visit ___ Follow-up Visit ___ On-call Visit ___ General Patient Visit ___ Spiritual Assessment ___ Family Conference ___ Bereavement ___ Rapid Response ___ Code Blue ___ Other (describe below) Pastoral Care Referral From _x__ Patient _x__ Family ___ Nurse ___ Physician ___ Vmware Architect ___ Agriculture Teacher ___ Other (describe below) Sacrament/Intervention _x__ Active listening ___ Anointing ___ Cheondoism ___ Bereavement ___ Communion ___ Do exploration ___ _x__ Life review _x__ Prayer ___ Reconciliation ___ Sacrament of Sick _x__ Supportive presence ___ Wedding ___ Other (describe below) Pastoral Comments patient has been seen in the past; pt states that he is not doing so well due to information received that his heart procedure cannot be done in this hospital; pt will be transferred probably after he meets with the hospital pastry baker this afternoon; and son are in the room; pt presents with a tough exterior and serious face but 'softens up' as the visit continues; pt and this cloth colors examiner have people in common and this knowledge sees pt become more agreeable and talkative; pt and family would like prayer support; pt admits that he needs to be able to adjust to the situation and accept 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
--- NOTE | 2024-01-18 18:59 | PCM.PN.HOSP ---
Reason for Visit Reason for Visit: Diagnoses Non-ST elevation (NSTEMI) myocardial infarction (01/16/24) Nonrheumatic aortic (valve) stenosis (01/16/24) Supraventricular tachycardia, unspecified (01/16/24) Paroxysmal atrial fibrillation (01/16/24) Chest pain, unspecified (01/16/24) Personal history of other diseases of the circulatory system (01/16/24) Subjective Subjective Patient was seen and examined today, I talked with cardiology about his care, he underwent a cardiac catheterization today which showed a 99% blockage in a diagonal branch, this was felt to be chronic in nature however, there were no other high-grade occlusions noted on the cardiac catheterization. Patient does have significant aortic stenosis with some regurg. Cardiology recommended the patient be watched overnight for further arrhythmias as he was in atrial flutter in the emergency room when he was first examined. This converted with IV Cardizem Objective Data Objective Data Vital Signs: Vital Signs Temp Pulse Resp BP Pulse Ox O2 Del Method O2 Flow Rate 98.3 F 52 L 18 151/98 H 92 Room Air 2 01/18/24 17:15 01/18/24 17:15 01/18/24 17:15 01/18/24 17:15 01/18/24 17:15 01/18/24 17:15 01/18/24 14:20 Oxygen Flow Rate (L/min) 2 Oxygen Delivery Method Room Air Weight: 70.3 kg Body Mass Index (BMI) 25.7 Intake & Output: Intake and Output for Last 24 Hours 01/16/24 01/17/24 01/18/24 23:59 23:59 23:59 Intake Total 1632.5 / 1632.5 1640 / 1640 360 / 360 Balance 1632.5 / 1632.5 1640 / 1640 360 / 360 Lab / Micro Data 01/18/24 05:34 01/18/24 05:34 Labs: Laboratory Results - last 24 hr 01/18/24 05:34: WBC 8.5, RBC 5.45, Hgb 16.0, Hct 49.3, MCV 90.5, MCH 29.4, MCHC 32.5, RDW Std Deviation 56.6 H, RDW Coeff of Eddie 17.4 H, Plt Count 282, MPV 9.1, Immature Gran % (Auto) 0.500, Neut % (Auto) 70.5 H, Lymph % (Auto) 13.9 L, Hancock % (Auto) 9.4, Eos % (Auto) 4.9, Baso % (Auto) 0.8, Absolute Neuts (auto) 6.0, Absolute Lymphs (auto) 1.18, Nucleated RBC % 0, PT 15.8 H, INR 1.3, Sodium 139, Potassium 3.9, Chloride 107, Carbon Dioxide 28.0, Anion Gap 4 L, BUN 18, Creatinine 0.94, Estim Creat Clear Calc 54.52, Est GFR (MDRD) Af Amer 99, Est GFR (MDRD) Non-Af 82, BUN/Creatinine Ratio 19.1, Glucose 101, Calcium 9.1, Total Bilirubin 1.10 H, AST 19, ALT 17, Alkaline Phosphatase 81, Total Protein 7.1, Albumin 3.4, Globulin 3.7, Albumin/Globulin Ratio 0.9 Rhythm Strip Rhythm Strip: Sinus Rhythm Rate: 59 Physical Exam Const alert, oriented x3, no apparent distress, average body habitus and healthy appearing General Appearance: cooperative, well kempt and well developed Orientation / Consciousness: awake, oriented to person, oriented to place and oriented to time HEENT normocephalic and moist oral mucous membranes Eyes PERRL, EOMs intact bilaterally and conjunctivae normal Neck supple, no JVD, thyroid normal and no carotid bruits General: trachea midline Resp normal respiratory effort and clear to auscultation bilaterally Auscultation: Negative for rales, rhonchi or wheezes Cardio regular rate, regular rhythm, S1 normal heart sound, S2 normal heart sound, no rub and no gallops Cardio Narrative: There is a 3/6 systolic murmur noted at the left sternal border and apex GI normal to inspection, nondistended, normoactive bowel sounds, soft to palpation, non-tender and non-distended Extremity no clubbing, cyanosis or edema Skin no rashes or lesions noted General Skin Exam: no breakdown Neuro oriented x3, CN's II-XII intact bilaterally, moves all extremities, no focal motor deficits and no sensory deficits noted Sensorium / Orientation: awake and alert Speech: speech normal Psych affect normal Assessment & Plan Assessment/Plan (1) Non-STEMI (non-ST elevated myocardial infarction): PLAN: Plan 1. [id number] will continue beta-blockers, statin, Plavix, and warfarin, patient's aspirin will be discontinued per cardiology. #2 paroxysmal atrial flutter-patient is currently in sinus rhythm, he will remain on amiodarone and warfarin #3 coronary artery disease-again there is not an indication for intervention at this time #4 aortic stenosis-patient will need to be evaluated as an outpatient for a TAVR #5 essential hypertension-patient will remain on his current medication #6 hypothyroidism-patient is on Synthroid Total clinical time spent by myself addressing patient's medical issues, reviewing all of his data, and collaborating with patient's care team: 35 minutes Charges/Coding Visit Charges Inpatient E&M: 30048 Subs Hosp L2
[2024-01-19] VITALS (7 sets, daily range): BP systolic 93–144; BP diastolic 57–89; PULSE 54–68; RESP 16–18; TEMP 36.4–36.8; O2SAT 92–98
[2024-01-19] MEDS: prednisoLONE eye drops (5 mL) 1 DROP OPTH.BTL 1 DRP RIGHT EYE ×3 (05:49→21:20)
[2024-01-19] MEDS: Levothyroxine 100 MCG Tablet PO (05:49)
[2024-01-19] MEDS: KETOROLAC TROMETHAMINE 5 ML DROPS RIGHT EYE ×3 (05:50→21:20)
[2024-01-19 07:09] LABS: Absolute Lymphocyte Count 1.21 X10^3/uL (0.83-4.51); Absolute Neutrophil Count 5.3 X10^3/uL (2.0-7.7); Basophil# 0.05 X10^3/uL; Basophil% 0.6 % (0-1); Eosinophil# 0.45 X10^3/uL; Eosinophils% 5.7 % (0-5); Hematocrit 49.2 % (40-54); Lymphocyte # 1.21 X10^3/ul (0.83-4.51); Lymphocyte % 15.4 % (19-41); Mean Corp Hgb Conc 32.5 g/dL (32-36); Mean Corpuscular Hgb 29.2 pg (27.0-32.0); Mean Corpuscular Volume 89.8 fL (80-94); Mean Platelet Vol. 9.2 fl (6.2-12.0); Monocyte# 0.76 X10^3/uL; Monocyte% 9.7 % (0-10); NRBC Flagged by Analyzer 0 % (0-5); Neutrophil % 67.7 % (47-70); Platelet Count 306 K/mm3 (150-450); RBC Distribution Width CV 17.5 % (11.6-14.6); RBC Distribution Width SD 56.6 fl (35.1-43.9); Red Blood Count 5.48 M/mm3 (4.6-6.2); White Blood Count 7.8 K/mm3 (4.4-11.0)
[2024-01-19 08:30] LABS: International Normalized Ratio 1.2
--- NOTE | 2024-01-19 09:04 | PCM.PN.CARD ---
Subjective Subjective The patient reports that this morning at approximately 615 he developed recurrent chest symptoms. This is identical to what he presented with but it was relatively short-lived and resolved spontaneously. These episodes appear to occur early in the morning upon early awakening. He was able to walk the halls yesterday without symptoms. The patient does have at least moderately severe aortic stenosis with aortic insufficiency and a heavily calcified valve as well as subtotal disease in the ostium of the large first major diagonal branch. This first major diagonal branch takes off from the LAD and a sight word 2 stents have been overlapped and implanted on 2 separate occasions. There is also a smaller second diagonal branch which has disease and moderately severe disease in the mid and distal segments of the LAD which are short discrete areas. The original presenting symptoms seem to be precipitated by his SVT which has not recurred and has been controlled on reinstituting of his p.o. amiodarone. We had discontinued his amiodarone back in July due to the fear of a long-term exposure. He has been maintained on Coumadin which was reinstituted yesterday at 7.5 mg. He remains in sinus rhythm this morning and his Coumadin will be held. Objective Data Vital Signs: Vital Signs Temp Pulse Resp BP Pulse Ox O2 Del Method O2 Flow Rate 97.9 F 54 L 16 128/72 H 96 Room Air 2 01/19/24 03:30 01/19/24 03:30 01/19/24 03:30 01/19/24 03:30 01/19/24 03:30 01/19/24 07:47 01/18/24 14:20 Oxygen Flow Rate (L/min) 2 Oxygen Delivery Method Room Air Weight: 154 lb 15.759 oz Body Mass Index (BMI) 25.7 Intake & Output: Intake and Output for Last 24 Hours 01/17/24 01/18/24 01/19/24 23:59 23:59 23:59 Intake Total 1640 / 1640 710 / 710 100 / 100 Balance 1640 / 1640 710 / 710 100 / 100 Lab / Micro Data Attestation: I reviewed the patient's lab results. 01/19/24 06:31 01/18/24 05:34 Labs: Laboratory Results - last 24 hr 01/19/24 06:31: WBC 7.8, RBC 5.48, Hgb 16.0, Hct 49.2, MCV 89.8, MCH 29.2, MCHC 32.5, RDW Std Deviation 56.6 H, RDW Coeff of Eddie 17.5 H, Plt Count 306, MPV 9.2, Immature Gran % (Auto) 0.900, Neut % (Auto) 67.7, Lymph % (Auto) 15.4 L, [place]in % (Auto) 9.7, Eos % (Auto) 5.7 H, Baso % (Auto) 0.6, Absolute Neuts (auto) 5.3, Absolute Lymphs (auto) 1.21, Nucleated RBC % 0, PT 15.0 H, INR 1.2 Rhythm Strip Rhythm Strip: Sinus Rhythm Rate: 62 Cardiology Labs/Tests 01/19/24 06:31: WBC 7.8, RBC 5.48, Hgb 16.0, Hct 49.2, MCV 89.8, MCH 29.2, MCHC 32.5, Plt Count 306, MPV 9.2, Immature Gran % (Auto) 0.900, Neut % (Auto) 67.7, Lymph % (Auto) 15.4 L, [place] % (Auto) 9.7, Eos % (Auto) 5.7 H, Baso % (Auto) 0.6, Absolute Neuts (auto) 5.3, Nucleated RBC % 0, PT 15.0 H, INR 1.2 Rhythm: EKG: ECHO: Stress Test: Cardiac Cath: PCI: CT Surgery: Holter monitor: EPS: PPM: CXR: Chest CT Scan: Physical Exam Const alert and oriented x3 HEENT normocephalic Eyes EOMs intact bilaterally Neck no JVD Chest inspection of chest normal Resp normal respiratory effort and clear to auscultation bilaterally Cardio Rate: regular rate Rhythm: regular rhythm Heart Sounds: S1 normal, S2 normal and murmur systolic IV/ harsh left sternal border to the neck and other (Throughout the precordium); Negative for click or gallop GI soft to palpation Extremity Extremity Narrative: Well-healed right radial insertion site. Skin no rashes or lesions noted Neuro Neuro Narrative: Alert and oriented x 3 Psych mental status grossly normal Assessment & Plan Assessment/Plan (1) Supraventricular tachycardia: PLAN: Patient carries a history of supraventricular tachycardia including paroxysmal atrial fibrillation. He had been treated long-term on amiodarone and we had discontinued this in July and he had a recurrence of his paroxysmal supraventricular tachycardia. This presented with ongoing chest discomfort and positive cardiac enzymes on this admission. He was reinstituted on amiodarone and has not had any recurrence of his atrial fibrillation or supraventricular tachycardia. (2) Chest pain: QUALIFIERS: Chest pain type: chest pain due to myocardial ischemia Ischemic chest pain type: unstable angina pectoris Qualified Code(s): I20.0 - Unstable angina PLAN: The patient had recurrent chest pain early in the morning the last 2 mornings. He was able to ambulate in the halls yesterday without incident. He does have severe disease in the ostium of the diagonal branch at the takeoff of where he has been stented and then restented in the LAD distribution. He also has 2 new lesions in the mid and distal left left anterior descending which are 60 to 70% stenosis. The patient also has severe aortic valve calcification with at least moderately severe aortic stenosis and aortic insufficiency. This is a complicated situation given the fact he is having recurrent symptoms at rest I am concerned about sending him home. I would recommend that he be transferred to [facility] to the service of Dr. Beck Santillan for evaluation by heart team to determine best treatment options given his aortic valve disease coronary artery disease and his arrhythmia. We will hold his Coumadin his INR is 1.2 today. (3) Paroxysmal A-fib: PLAN: The patient has not had any recurrence of any supraventricular tachycardia or atrial fibrillation since admission. He be continued on amiodarone 200 mg daily. Coumadin should be reinstituted for long-term oral anticoagulation as he does have longstanding history of paroxysmal atrial fibs in the home environment. The Coumadin can be reinstituted once definitive therapy is decided upon for his aortic valve and coronary disease. (4) Nonrheumatic aortic (valve) stenosis: PLAN: The patient has heavily calcified aortic stenosis with a peak gradient measured at 49 and a mean gradient of 31 in the face of aortic insufficiency. He also has progressive coronary artery disease and ongoing chest pain at rest. It is somewhat confusing and that it does not occur when he is ambulating in the halls at low levels. It did occur with the SVT when he originally presented on this admission. His enzymes were also positive presenting at 1800 and peak and going up to 5700, high-sensitivity troponin. Given the gradients and a valve area estimated 0.84 on the remote echocardiogram I would recommend that he be evaluated for heart team approach to look at the best treatment options for this disease process. (5) Essential hypertension: PLAN: Blood pressure has been adequately controlled on his current medical therapy. 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 transplanted heart: nondal[place] heart Qualified Code(s): I25.10 - Atherosclerotic heart disease of [place] coronary artery without angina pectoris PLAN: Patient has a history of stenting of the OM branch of the circumflex and the proximal LAD both of which are widely patent. The LAD has been stented de thao and then stented again due to restenosis. This jailed the large first major diagonal branch which now has a critical ostial lesion and supplying a significant amount of myocardium. There is also new disease in the mid and distal LAD. The right coronary is a huge dominant vessel with minimal luminal irregularities. 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 This should be reinstituted once definitive therapy is completed. (8) Carotid dissection, bilateral: PLAN: Patient carries remote history of carotid dissection that I have little information about that apparently occurred in 2016. PLAN: Plan 1. Would recommend transfer to [facility] the service of Dr. Beck Santillan for further evaluation and a heart team approach to this complicated situation. 2. Continue to hold Coumadin. 3. Would continue amiodarone to 200 mg daily. I did discuss this with Dr. Santillan's team and Dr. Hicks is in the process of arranging for transfer. Charges/Coding Visit Charges Inpatient E&M: 54724 Subs Hosp L2
[2024-01-19] MEDS: Isosorbide Mononitrate 30 MG Tablet PO ×2 (09:45→17:55)
[2024-01-19] MEDS: Finasteride 5 MG Tablet PO (09:45)
[2024-01-19] MEDS: Amiodarone 200 MG Tablet PO (09:46)
[2024-01-19] MEDS: Carvedilol 12.5 MG Tablet PO ×2 (09:46→17:55)
[2024-01-19] MEDS: amLODIPine 2.5 MG Tablet PO (09:46)
[2024-01-19] MEDS: Clopidogrel Bisulfate 75 MG Tablet PO (09:46)
[2024-01-19 11:48] LABS: ALB/GLOB Ratio 0.9 RATIO (0.9-2.4); AST(SGOT) 23 U/L (15-37); Alanine Aminotransfer ALT/SGPT 21 U/L (16-61); Albumin, Serum 3.3 g/dL (3.2-5.0); Alkaline Phosphatase 77 U/L (45-117); Anion Gap 6 (5-15); BUN 18 mg/dL (7-18); BUN/Creat Ratio 19.1 RATIO (10-20); Calcium,Total 9.2 mg/dL (8.5-10.1); Chloride 106 mmol/L (98-107); Creatinine, Serum 0.94 mg/dL (0.70-1.30); EST Glomerular Filtration Rate 82 mL/min (>60); Est Glom Filt Rate - Afr Amer 99 mL/min (>60); Estimated Creatinine Clearance 54.52 ml/min; Globulin 3.8 g/dL (2.2-4.2); Glucose 82 mg/dL (74-106); Potassium 4.5 mmol/L (3.5-5.1); Protein, Total 7.1 g/dL (6.4-8.2); Sodium Level 139 mmol/L (136-145)
--- NOTE | 2024-01-19 17:27 | PCM.DC.SUM ---
Providers Date of Admission: 01/16/24 Date of Discharge: 01/19/24 Primary Care Physician: ISSA Manzo Consultations 01/16/24 07:08 Consult: Cardiology Routine Consulting Provider: Zainab Adams Reason for Consult: Chest Pain EMERGENT Consult: No MD Notified: Yes Date Notified: 01/16/24 Time Notified: 06:16 Method of Notification: ED Physician Initiated Reason For Visit: CHEST PAIN Diagnosis Discharge Diagnosis (1) Supraventricular tachycardia: Status: Acute Code(s): I47.10 - Supraventricular tachycardia, unspecified (2) Chest pain: Status: Acute Code(s): R07.9 - Chest pain, unspecified Qualifiers: Chest pain type: chest pain due to myocardial ischemia Ischemic chest pain type: unstable angina pectoris Qualified Code(s): I20.0 - Unstable angina (3) Paroxysmal A-fib: Status: Acute Code(s): I48.0 - Paroxysmal atrial fibrillation (4) Nonrheumatic aortic (valve) stenosis: Status: Acute Code(s): I35.0 - Nonrheumatic aortic (valve) stenosis (5) Essential hypertension: Status: Acute Code(s): I10 - Essential (primary) hypertension (6) Atherosclerotic heart disease of [place] coronary artery without angina pectoris: Status: Acute Code(s): I25.10 - Atherosclerotic heart disease of [place] coronary artery without angina pectoris Qualifiers: [place] vs. transplanted heart: [place] heart Qualified Code(s): I25.10 - Atherosclerotic heart disease of [place] coronary artery without angina pectoris (7) FPC current use of anticoagulant: Status: Acute Code(s): Z79.01 - FPC (current) use of anticoagulants (8) Carotid dissection, bilateral: Status: Chronic Code(s): I77.71 - Dissection of carotid artery Plan 1. [id number] will continue beta-blockers, statin, Plavix, and warfarin, patient's aspirin will be discontinued per cardiology. #2 paroxysmal atrial fib-patient is currently in sinus rhythm, he will remain on amiodarone and warfarin #3 coronary artery disease-again there is not an indication for intervention at this time #4 aortic stenosis-patient will need to be evaluated as an outpatient for a TAVR #5 essential hypertension-patient will remain on his current medication #6 hypothyroidism-patient is on Synthroid #7 supraventricular tachycardia Total clinical time spent by myself addressing patient's medical issues, reviewing all of his data, and collaborating with patient's care team: 35 minutes Medications at Discharge Home Medications nitroglycerin 0.4 mg sublingual tablet 0.4 mg sublingual Q5-15M PRN chest pain #25 tabs 12/21/18 lysine 500 mg tablet 500 mg PO DAILY supplement 06/09/19 finasteride 5 mg tablet 5 mg PO DAILY #90 tabs 11/21/19 cholecalciferol (vitamin D3) 25 mcg (1,000 unit) tablet 25 mcg PO DAILY vitamin 06/27/21 cyanocobalamin (vitamin B-12) 1,000 mcg tablet (Vitamin B-12) 1,000 mcg PO DAILY vitamin 06/27/21 multivitamin 1 tab PO DAILY vitamin 07/31/21 acetaminophen 500 mg tablet 1,000 mg PO TID PRN Pain 10/09/21 amiodarone 100 mg tablet 100 mg PO DAILY #90 tabs 12/29/22 amlodipine 2.5 mg tablet 2.5 mg PO DAILY #90 tabs 02/23/23 warfarin 7.5 mg tablet 7.5 mg PO MOWEFR@1700 blood thinner 07/07/23 levothyroxine 100 mcg capsule 100 mcg PO DAILY thyroid 11/05/23 carvedilol 12.5 mg tablet (Coreg) 12.5 mg PO BID #180 tabs 11/20/23 aspirin 81 mg tablet,delayed release (Adult Aspirin Regimen) 81 mg PO QODAY 01/16/24 ketorolac 0.4 % eye drops 1 drp RIGHT EYE TID post cataract surgery 01/16/24 prednisolone acetate 1 % eye drops,suspension 1 drp RIGHT EYE 3XD post eye sx 01/16/24 warfarin 5 mg tablet 5 mg PO SUTUTHSA@1700 blood thinner 01/16/24 Hospital Course Operations None Procedures 2-D Echocardiogram and Cardiac catheterization Summary of Care Provided Minutes Spent on Discharge: 32 Hospital Course: This 78-year-old white male was seen in the emergency room at [facility] with complaints of chest pain and palpitations. Patient describes the chest pain as a heaviness with some nausea. Patient's initial EKG showed no evidence of ischemic changes and showed normal sinus rhythm. Subsequently the patient's heart rate jumped into the 140 range and repeat EKG showed supraventricular tachycardia, patient was given IV Cardizem and his rhythm converted back to a sinus bradycardia with a heart rate in the 50s. Troponin was normal. Chest x-ray obtained showed no acute process cardiology was contacted and the case was discussed with them it was advised the patient be admitted. Repeat troponin was elevated at 1800, patient underwent a cardiac catheterization which showed severe aortic stenosis and there was noted to be a 99% occlusion of one of the branches of the coronary artery. It was planned that the patient's medications would be adjusted he would be referred to [place] as an outpatient for evaluation of bypass or high risk stenting and valve replacement either by TAVR or open procedure. Patient was kept in the hospital that night and the next morning the patient had an episode of chest pain, cardiology decided that in the best interest of the patient he should be transferred to [place] for further evaluation. On 01/19/2024, patient was seen and examined: On examination he appeared in good health and spirits. Vital signs as documented. Skin warm and dry and without overt rashes. Neck without JVD, neck was supple, trachea midline, thyroid was normal. Lungs clear bilaterally, normal air movement was noted. Heart exam notable for regular rhythm, normal sounds and absence of murmurs, rubs or gallops. Abdomen unremarkable and without evidence of organomegaly, masses, or abdominal aortic enlargement. Bowel sounds are present, abdomen is not distended. Extremities nonedematous, no cyanosis was noted, no clubbing was noted. Neuro: Cranial nerves II through XII are grossly intact, no focal motor deficits were noted, sensation to light touch and pinprick intact, motor exam 5/5 throughout. Psych: Patient is alert and oriented x3, he does not appear anxious or depressed, he does not appear agitated. Patient appeared stable for discharge to [place] on 01/19/2024 for further treatment. Weight / BMI Weight Weight: 70.3 kg Body Mass Index (BMI) 25.7 ABG / Lab / Microbiology Data 01/19/24 06:31 01/19/24 06:31 Laboratory: Laboratory Results - last 24 hr 01/19/24 06:31: WBC 7.8, RBC 5.48, Hgb 16.0, Hct 49.2, MCV 89.8, MCH 29.2, MCHC 32.5, RDW Std Deviation 56.6 H, RDW Coeff of Eddie 17.5 H, Plt Count 306, MPV 9.2, Immature Gran % (Auto) 0.900, Neut % (Auto) 67.7, Lymph % (Auto) 15.4 L, [place] % (Auto) 9.7, Eos % (Auto) 5.7 H, Baso % (Auto) 0.6, Absolute Neuts (auto) 5.3, Absolute Lymphs (auto) 1.21, Nucleated RBC % 0, PT 15.0 H, INR 1.2, Sodium 139, Potassium 4.5, Chloride 106, Carbon Dioxide 27.0, Anion Gap 6, BUN 18, Creatinine 0.94, Estim Creat Clear Calc 54.52, Est GFR (MDRD) Af Amer 99, Est GFR (MDRD) Non-Af 82, BUN/Creatinine Ratio 19.1, Glucose 82, Calcium 9.2, Total Bilirubin 0.80, AST 23, ALT 21, Alkaline Phosphatase 77, Total Protein 7.1, Albumin 3.3, Globulin 3.8, Albumin/Globulin Ratio 0.9 Meaningful Use Info Meaningful Use Meaningful Use Diagnoses (Choose all that apply): AMI AMI/Post PCI/Angioplasty Aspirin given w/in 24hrs of arrival?: Yes ASA at discharge?: Yes Antiplatelet Therapy at Discharge:: Yes Statins at discharge?: Yes Gregg/ARB at discharge?: Yes Beta Jarret at discharge?: Yes Done w/ Acute ID measure.: Yes Documented LVEF (%): 65 Ischemic Stroke Statin Dosing Therapy Reference: STATIN DOSE THERAPY REFERENCE: * Patients > 75 years receive moderate or high dose statin therapy. * Patients 75 years or YOUNGER should receive HIGH intensity statin dose unless contraindicated. You will be required to document reason for non-treatment if statin daily dose does not meet guidelines. HIGH DOSE STATIN THERAPY DAILY Atorvastatin > than or = to 40 mg Rosuvastatin > than or = to 20 mg Amlodipine + Atorvastatin > than or = to 2.5/40 mg Ezetimibe + Simvastatin 10/80 mg Simvastatin 80mg Discharge Plan Admission Admit Date/Time: 01/16/24 06:14 Attending Provider: Bharat Gonzalez Primary Care Provider: Fatimah Hammond Consulting Providers: Dulce Espana; Zainab Adams; Dena Mirza Discharge Orders/Prescriptions Prescriptions: No Action lysine 500 mg tablet 500 mg PO DAILY nitroglycerin 0.4 mg tablet, sublingual 0.4 mg SUBLINGUAL Q5-15M PRN (Reason: chest pain) Qty: 25 3RF Rx Instructions: until response; do not exceed 3 doses per episode multivitamin Tablet 1 tab PO DAILY cholecalciferol (vitamin D3) 25 mcg (1,000 unit) tablet 25 mcg PO DAILY cyanocobalamin (vitamin B-12) [Vitamin B-12] 1,000 mcg tablet 1,000 mcg PO DAILY acetaminophen 500 mg tablet 1,000 mg PO TID PRN (Reason: Pain) Rx Instructions: Do not take more than 3000 mg Tylenol in a 24-hour period. warfarin 7.5 mg tablet 7.5 mg PO MO@1700 Protocol: Dose Management Condition: Thursday Dose/Route: 7.5 mg Instruction: 1 x 7.5 mg tablet Condition: Thursday Dose/Route: 7.5 mg Instruction: 1 x 7.5 mg tablet Condition: Thursday Dose/Route: 5 mg Instruction: 1 x 5 mg tablet Condition: Thursday Dose/Route: 7.5 mg Instruction: 1 x 7.5 mg tablet Condition: Dose/Route: 5 mg Instruction: 1 x 5 mg tablet Condition: Thursday Dose/Route: 5 mg Instruction: 1 x 5 mg tablet Condition: Thursday Dose/Route: 7.5 mg Instruction: 1 x 7.5 mg tablet Protocol Text: Adjustment Start Date: 11/05/23 INR Value: 2.0 INR Date: 11/05/23 Recheck Date: 12/03/23 Patient Comments: takes on thu/thu/thu levothyroxine 100 mcg capsule 100 mcg PO DAILY finasteride 5 MG tablet 5 mg PO DAILY Qty: 90 3RF aspirin [Adult Aspirin Regimen] 81 mg tablet,delayed release (DR/EC) 81 mg PO QODAY warfarin 5 mg tablet 5 mg PO @1700 Protocol: Dose Management Condition: Thursday Dose/Route: 7.5 mg Instruction: 1 x 7.5 mg tablet Condition: Thursday Dose/Route: 7.5 mg Instruction: 1 x 7.5 mg tablet Condition: Thursday Dose/Route: 5 mg Instruction: 1 x 5 mg tablet Condition: Thursday Dose/Route: 7.5 mg Instruction: 1 x 7.5 mg tablet Condition: Dose/Route: 5 mg Instruction: 1 x 5 mg tablet Condition: Thursday Dose/Route: 5 mg Instruction: 1 x 5 mg tablet Condition: Thursday Dose/Route: 7.5 mg Instruction: 1 x 7.5 mg tablet Protocol Text: Adjustment Start Date: 11/05/23 INR Value: 2.0 INR Date: 11/05/23 Recheck Date: 12/03/23 Rx Instructions: Take one tab (5 mg) on //Thu/Thu. prednisolone acetate 1 % drops,suspension 1 drp RIGHT EYE 3XD Patient Comments: f/u 01/21 ketorolac 0.4 % drops 1 drp RIGHT EYE TID amiodarone 100 mg tablet 100 mg PO DAILY Qty: 90 3RF amlodipine 2.5 mg tablet 2.5 mg PO DAILY Qty: 90 3RF carvedilol [Coreg] 12.5 mg tablet 12.5 mg PO BID Qty: 180 3RF Rx Instructions: must administer with a meal/food Referrals / Follow Up: Fatimah Hammond NP-C [Primary Care Provider] - Disposition Disposition (needs filled in before D/C Order can be placed): Acute Care Hospital Charges/Coding Visit Charges Inpatient E&M: 68129 Disch Hosp >30min
--- NOTE | 2024-01-19 22:12 | CPS ---
Patient refused PAP therapy for the night.
--- NOTE | 2024-01-20 00:01 | NURSING ---
Patient transfer to [facility] for higher level of care. [facility] here to transport patient. All belongings sent with patient.
== END 2024-01-19 23:40 | disposition short-term general hospital (02) | DRG 281 ==
LOC: ED 06:00 → PCU 06:32
PROVIDERS: Family Medicine; Admitting Provider Internal Medicine; Emergency Provider Emergency Medicine; PCP Nurse Practitioner Family; Visit Provider Internal Medicine
DX: I21.4 Non-ST elevation (NSTEMI) myocardial infarction (principal); I47.10 Supraventricular tachycardia, unspecified; E89.0 Postprocedural hypothyroidism; I10 Essential (primary) hypertension; I35.0 Nonrheumatic aortic (valve) stenosis; I65.23 Occlusion and stenosis of bilateral carotid arteries; I48.0 Paroxysmal atrial fibrillation; G47.33 Obstructive sleep apnea (adult) (pediatric); E78.00 Pure hypercholesterolemia, unspecified; I25.110 Atherosclerotic heart disease of native coronary artery with unstable angina pectoris; I25.2 Old myocardial infarction; N40.0 Benign prostatic hyperplasia without lower urinary tract symptoms; Z95.5 Presence of coronary angioplasty implant and graft; Z91.199 Patient's noncompliance with other medical treatment and regimen due to unspecified reason; Z79.01 Long term (current) use of anticoagulants; Z79.82 Long term (current) use of aspirin; Z79.890 Hormone replacement therapy; Z79.899 Other long term (current) drug therapy
CPT/HCPCS: 36415; 71045; 80048; 80053; 80061; 83735; 84100; 84443; 84484; 85025; 85610; 93005; 93306; 93454; 94668; 99152; 99153; 99252; 99285; J7040; Q9967; A4216; C1769; C1894; G0463; J2405

== ENCOUNTER 2024-02-01 10:06 | Outpatient (RCR) | payer MEDICARE, OTHER, SELFPAY ==
[2024-02-01 10:37] LABS: International Normalized Ratio 2.1; Prothrombin Time (Protime)PT. 23.1 SECONDS (11.7-14.9)
== END 2024-02-01 18:00 | disposition home or self-care (01) ==
LOC: LAB 10:06
PROVIDERS: PCP Nurse Practitioner Family; Referring Provider Physician Assistant Medical; Visit Provider Physician Assistant Medical
DX: I48.0 Paroxysmal atrial fibrillation
CPT/HCPCS: 36415; 85610

== ENCOUNTER 2024-03-11 10:18 | Outpatient (RCR) | payer MEDICARE, OTHER, SELFPAY ==
[2024-03-11 11:19] LABS: International Normalized Ratio 2.2; Prothrombin Time (Protime)PT. 24.1 SECONDS (11.7-14.9)
== END 2024-03-11 18:00 | disposition home or self-care (01) ==
LOC: LAB 10:18
PROVIDERS: PCP Nurse Practitioner Family; Referring Provider Physician Assistant Medical; Visit Provider Physician Assistant Medical
DX: Z79.01 Long term (current) use of anticoagulants (principal); I48.0 Paroxysmal atrial fibrillation
CPT/HCPCS: 36415; 85610

== ENCOUNTER 2024-04-05 08:23 | Outpatient (RCR) | payer MEDICARE, OTHER, SELFPAY ==
[2024-04-05 09:10] LABS: International Normalized Ratio 2.6; Prothrombin Time (Protime)PT. 27.9 SECONDS (11.7-14.9)
== END 2024-04-23 18:00 | disposition home or self-care (01) ==
LOC: LAB 08:23
PROVIDERS: PCP Nurse Practitioner Family; Referring Provider Physician Assistant Medical; Visit Provider Physician Assistant Medical
DX: Z79.01 Long term (current) use of anticoagulants (principal); I48.0 Paroxysmal atrial fibrillation
CPT/HCPCS: 36415; 85610

== ENCOUNTER → 2024-04-05 | Outpatient (CLI) | payer MEDICARE, OTHER, SELFPAY ==
[2024-04-05 09:15] LABS: Anion Gap 7 (5-15); BUN 18 mg/dL (7-18); BUN/Creat Ratio 18.2 RATIO (10-20); Calcium,Total 8.9 mg/dL (8.5-10.1); Chloride 109 mmol/L (98-107); Creatinine, Serum 0.99 mg/dL (0.70-1.30); EST Glomerular Filtration Rate 77 mL/min (>60); Est Glom Filt Rate - Afr Amer 94 mL/min (>60); Glucose 127 mg/dL (74-106); Potassium 3.7 mmol/L (3.5-5.1); Sodium Level 139 mmol/L (136-145)
== END | disposition home or self-care (01) ==
LOC: LAB 08:28
PROVIDERS: PCP Nurse Practitioner Family; Referring Provider Nurse Practitioner Adult Health; Visit Provider Nurse Practitioner Adult Health
DX: I35.0 Nonrheumatic aortic (valve) stenosis (principal)
CPT/HCPCS: 36415; 80048

== ENCOUNTER 2024-05-12 09:18 | Outpatient (RCR) | payer MEDICARE, OTHER, SELFPAY ==
[2024-04-29 16:06] LABS: International Normalized Ratio 1.2; Prothrombin Time (Protime)PT. 15.4 SECONDS (11.7-14.9)
[2024-05-04 12:56] LABS: International Normalized Ratio 1.7; Prothrombin Time (Protime)PT. 19.9 SECONDS (11.7-14.9)
[2024-05-12 12:31] LABS: International Normalized Ratio 2.5; Prothrombin Time (Protime)PT. 27.1 SECONDS (11.7-14.9)
== END 2024-05-12 18:00 | disposition home or self-care (01) ==
LOC: MTLAB 09:18
PROVIDERS: Internal Medicine Cardiovascular Disease; PCP Nurse Practitioner Family; Referring Provider Physician Assistant Medical; Visit Provider Physician Assistant Medical
DX: Z79.01 Long term (current) use of anticoagulants (principal); I25.10 Atherosclerotic heart disease of native coronary artery without angina pectoris
CPT/HCPCS: 36415; 85610

== ENCOUNTER 2024-06-29 13:38 | Outpatient (RCR) | payer MEDICARE, OTHER, SELFPAY ==
[2024-06-29 14:58] LABS: International Normalized Ratio 2.4; Prothrombin Time (Protime)PT. 26.5 SECONDS (11.7-14.9)
== END 2024-07-22 18:00 | disposition home or self-care (01) ==
LOC: LAB 13:38
PROVIDERS: PCP Nurse Practitioner Family; Referring Provider Physician Assistant Medical; Visit Provider Physician Assistant Medical
DX: Z79.01 Long term (current) use of anticoagulants (principal); I48.0 Paroxysmal atrial fibrillation
CPT/HCPCS: 36415; 85610

== ENCOUNTER 2024-08-23 09:39 | Outpatient (RCR) | payer MEDICARE, OTHER, SELFPAY ==
[2024-08-23 10:03] LABS: International Normalized Ratio 2.2; Prothrombin Time (Protime)PT. 24.7 SECONDS (11.7-14.9)
[2024-08-23 10:42] LABS: PSA,Total- Diagnostic 3.25 ng/mL (0.00-4.00)
== END 2024-09-21 18:00 | disposition home or self-care (01) ==
LOC: LAB 09:39
PROVIDERS: PCP Nurse Practitioner Family; Referring Provider Physician Assistant Medical; Visit Provider Physician Assistant Medical
DX: Z79.01 Long term (current) use of anticoagulants (principal); R97.20 Elevated prostate specific antigen [PSA]; I48.0 Paroxysmal atrial fibrillation
CPT/HCPCS: 36415; 84153; 85610

== ENCOUNTER → 2024-11-15 | Outpatient (CLI) | payer MEDICARE, OTHER, SELFPAY ==
[2024-11-15 12:29] LABS: Absolute Lymphocyte Count 1.12 X10^3/uL (0.83-4.51); Absolute Neutrophil Count 6.8 X10^3/uL (2.0-7.7); Basophil# 0.09 X10^3/uL; Eosinophil# 0.38 X10^3/uL; Hemoglobin 16.2 g/dL (13.0-16.5); Lymphocyte # 1.12 X10^3/ul (0.83-4.51); Lymphocyte % 11.9 % (19-41); Mean Corp Hgb Conc 33.1 g/dL (32-36); Mean Corpuscular Hgb 31.5 pg (27.0-32.0); Mean Corpuscular Volume 95.3 fL (80-94); Mean Platelet Vol. 9.5 fl (6.2-12.0); Monocyte# 0.97 X10^3/uL; Monocyte% 10.3 % (0-10); NRBC Flagged by Analyzer 0 % (0-5); Neutrophil # 6.78 X10^3/uL (2.7-7.7); Neutrophil % 72.3 % (47-70); Platelet Count 406 K/mm3 (150-450); RBC Distribution Width CV 15.8 % (11.6-14.6); RBC Distribution Width SD 55.8 fl (35.1-43.9); Red Blood Count 5.14 M/mm3 (4.6-6.2); White Blood Count 9.4 K/mm3 (4.4-11.0)
[2024-11-15 12:36] LABS: International Normalized Ratio 2.5; Prothrombin Time (Protime)PT. 27.3 SECONDS (11.7-14.9)
[2024-11-15 13:40] LABS: ALB/GLOB Ratio 1.3 RATIO (0.9-2.4); AST(SGOT) 22 U/L (<=37); Alanine Aminotransfer ALT/SGPT 12 U/L (<=46); Albumin, Serum 4.5 g/dL (3.4-4.8); Alkaline Phosphatase 88 U/L (40-129); Anion Gap 13 (5-15); BUN 27 mg/dL (4-19); BUN/Creat Ratio 25.3 RATIO (10-20); Calcium,Total 9.6 mg/dL (7.6-11.0); Carbon Dioxide 20.3 mmol/L (21.0-32.0); Chloride 106 mmol/L (98-108); Cholesterol 271 mg/dL (<=200); Creatinine, Serum 1.08 mg/dL (0.70-1.20); EST Glomerular Filtration Rate 69 (>60); Globulin 3.4 g/dL (2.2-4.2); Glucose 102 mg/dL (70-99); High Density Lipoprotein 76 mg/dL; Low Density Lipoprotein Calc. 173 mg/dL; Potassium 4.3 mmol/L (3.3-5.1); Sodium Level 139 mmol/L (133-145); Thyroid Stim Hormone (TSH) 0.958 uIU/mL (0.300-4.200); Total Bilirubin 0.79 mg/dL (0.00-1.30); Triglycerides 112 mg/dL; Very Low Density Lipoprotein 22 mg/dL (5-40); Vitamin B12 1443 pg/mL (180-914); Vitamin D,25 Hydroxy 33.1 ng/mL (30-100); cholesterol:hdl ratio screen 3.57
== END | disposition home or self-care (01) ==
LOC: BFHLAB 09:09
PROVIDERS: PCP Nurse Practitioner Family; Visit Provider Nurse Practitioner Family
DX: E03.9 Hypothyroidism, unspecified (principal); I10 Essential (primary) hypertension; R97.20 Elevated prostate specific antigen [PSA]; E78.5 Hyperlipidemia, unspecified; E53.8 Deficiency of other specified B group vitamins; E55.9 Vitamin D deficiency, unspecified
CPT/HCPCS: 36415; 80053; 80061; 82306; 82607; 84153; 84439; 84443; 85025; 85610

== ENCOUNTER 2024-12-27 08:29 | Outpatient (RCR) | payer MEDICARE, OTHER, SELFPAY ==
[2024-12-27 10:26] LABS: Prothrombin Time (Protime)PT. 29.7 SECONDS (11.7-14.9)
== END 2024-12-27 18:00 | disposition home or self-care (01) ==
LOC: MTLAB 08:29
PROVIDERS: PCP Nurse Practitioner Family; Referring Provider Physician Assistant Medical; Visit Provider Physician Assistant Medical
DX: Z79.01 Long term (current) use of anticoagulants; I48.0 Paroxysmal atrial fibrillation
CPT/HCPCS: 36415; 85610

== ENCOUNTER 2025-02-06 10:46 | Outpatient (RCR) | payer MEDICARE, OTHER, SELFPAY ==
[2025-02-06 12:29] LABS: Prothrombin Time (Protime)PT. 27.8 SECONDS (11.7-14.9)
== END 2025-02-21 18:00 | disposition home or self-care (01) ==
LOC: MTLAB 10:46
PROVIDERS: Internal Medicine Cardiovascular Disease; PCP Nurse Practitioner Family; Referring Provider Physician Assistant Medical; Visit Provider Physician Assistant Medical
DX: R97.20 Elevated prostate specific antigen [PSA] (principal); Z79.01 Long term (current) use of anticoagulants; I48.0 Paroxysmal atrial fibrillation
CPT/HCPCS: 36415; 85610

== ENCOUNTER 2025-04-24 09:57 | Outpatient (RCR) | payer MEDICARE, OTHER, SELFPAY ==
[2025-04-24 10:50] LABS: Prothrombin Time (Protime)PT. 28.8 SECONDS (11.7-14.9)
== END 2025-04-24 18:00 | disposition home or self-care (01) ==
LOC: LAB 09:57
PROVIDERS: PCP Nurse Practitioner Family; Referring Provider Physician Assistant Medical; Visit Provider Physician Assistant Medical
DX: Z79.01 Long term (current) use of anticoagulants; I48.0 Paroxysmal atrial fibrillation
CPT/HCPCS: 36415; 85610

== ENCOUNTER → 2025-05-19 | Outpatient (CLI) | payer MEDICARE, OTHER, SELFPAY ==
--- NOTE | 2025-05-19 08:03 | CT_ITS ---
PROCEDURE: EXTREMITY UPPER WITHOUT CONTRA 05/19/2025 REASON FOR EXAM: SHOULDER PAIN TECHNIQUE: Procedure Code: [id number] Modality: CT Procedure: EXTREMITY UPPER WITHOUT CONTRA Coronal and Sagittal reconstruction series were provided. One or more dose reduction techniques were used (e.g., Automated exposure control, adjustment of the mA and/or kV according to patient size, use of iterative reconstruction technique. RADIATION DOSE SUMMARY: CTDlvol: mGy DLP: 598 mGycm FINDINGS: Imaged portions of the lung sosa appear clear. Calcific aortic atherosclerosis. No mediastinal mass. Three-vessel coronary artery calcifications. Cervical and thoracic spondylosis. No evidence of fracture. Severe yeah-no-zuvg grade 4 glenohumeral joint arthrosis with marginal osseous ridging and periarticular subcortical cystic changes, with sclerosis. Severe AC joint arthrosis with chronic periarticular bony fragmentation. Supraspinatus muscle atrophy, with thinning and possible tearing of the supraspinatus tendon, with superior humeral migration narrowing the subacromial space. 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 Severe AC joint arthrosis with chronic periarticular bony fragmentation. Superior humeral migration narrows the subacromial space, with supraspinatus mu scle atrophy and possible tearing. Spondylosis and atherosclerosis, including three-vessel coronary artery calcifi cations. Reading Location: [facility]
--- OUTSIDE RECORDS SUMMARY | 2025-05-19 08:05 | XMS RPT_ITS | CCD ---
Author Organization [facility] Care Team Providers Care Composition Instructor Name Role Phone LIZ, SANDRA Unavailable Unavailable LIZ, SANDRA Unavailable Unavailable TAPAN CORNELIUS Unavailable Unavailable LIZ, SANDRA Unavailable Unavailable LIZ, SANDRA Unavailable Unavailable TAPAN CORNELIUS Unavailable Unavailable LIZ, SANDRA Unavailable Unavailable LIZ, SANDRA Unavailable Unavailable TAPAN CORNELIUS Unavailable Unavailable Dr. Tapan Cornelius Primary Care Provider Dr. Tapan Cornelius Referring Provider [phone] Roof ACCOUNT SERVICES SPECIALIST, ACCOUNT SERVICES SPECIALIST-Lorrie Garrett Attending Provider [phone] Dr. Shamir Bravo Attending Provider Dr. Shamir Bravo Referring Provider Dr. Shamir Bravo Other Provider [phone] Malick Vazquez Admit Provider Dr. Malick Vazquez Referring Provider Dr. Malick Vazquez Other Provider [phone] Dr. Boston Orellana Attending Provider [phone] [place] Orellana Other Provider Dr. Dulce Espana Attending Provider Dr. Dulce Espana Other Provider Catarino RAMIREZ, ASHLEY Alicia Attending Provider Dr. Juan Osei Emergency Provider [phone] Toro Guillermo Admit Provider Dr. Toro Guillermo Attending Provider Dr. Toro Guillermo Referring Provider Dr. Toro Guillermo Other Provider Moe ACCOUNT SERVICES SPECIALIST, ACCOUNT SERVICES SPECIALIST-C Tammy Attending Provider Dr. Tapan Cornelius Primary Care Provider Dr. Tapan Cornelius Referring Provider Dr. Shamir Bravo Attending Provider Dr. Bharat Gonzalez Referring Provider Dr. Boston Orellana Referring Provider Dr. Debra Ford Attending Provider Dr. Debra Ford Other Provider José Manuel TRUJILLO, ACCOUNT SERVICES SPECIALIST-C Audrey Attending Provider Dr. Shamir Bravo Other Provider Dr. Shamir Bravo Admit Provider [phone] Anh TRUJILLO, ACCOUNT SERVICES SPECIALIST-C Roger Garrett Attending Provider Dr. Tapan Cornelius Primary Care Provider Dr. Boston Orellana Attending Provider Dr. [place] Orellana Other Provider Tapan Cornelius MD Primary Care Provider Jovi SANCHEZ MD, Daesung Unavailable Myah Carson MD, Ruby Unavailable Tapan Cornelius MD Primary Care Provider [phone] Jovi SANCHEZ MD, Daesung Unavailable Myah Carson MD, Ruby Unavailable Dr. Toro Guillermo Attending Provider ASHLEY Chavez Attending Provider ISSA Lovett Primary Care Provider Dr. Bobby Kim Attending Provider [phone] Bobby Kim Referring Provider [phone] ASHLEY Chavez M Attending Provider Bony, ACCOUNT SERVICES SPECIALIST-C Ankur Primary Care Provider Bony, ACCOUNT SERVICES SPECIALIST-C Ankur Referring Provider ASHLEY Chavez Attending Provider Bony, ACCOUNT SERVICES SPECIALIST-C Ankur Primary Care Provider Bony, ACCOUNT SERVICES SPECIALIST-C Ankur Referring Provider Dr. Vasquez Ding Attending Provider Bony LEGAL AIDE, Ankur Primary Care Provider Jyoti RN, Laina Unavailable Unavailable Jyoti RN, Laina Unavailable Unavailable Ori LOPEZ, Gabriela Unavailable Unavailable Ori LOPEZ, Gabriela Unavailable Unavailable Kaila Chavez Attending Provider Kaila Chavez Referring Provider Vijay SANCHEZ, Dr. Devon Reed Other Provider [phone] Bony ACCOUNT SERVICES SPECIALIST-C, Ankur Primary Care Provider RidgeRoxy Other Provider Bony ACCOUNT SERVICES SPECIALIST-C, Ankur Attending Provider Bony ACCOUNT SERVICES SPECIALIST-C, Ankur Primary Care Provider Kaila Chavez Attending Provider Kaila Chavez Referring Provider Dr. Devon Briones MD Other Provider RidgeRoxy bal Other Provider Bony ACCOUNT SERVICES SPECIALIST-C, Ankur Referring Provider [phone] Оелг Ortiz MD Attending Provider Bony ACCOUNT SERVICES SPECIALIST-C, Ankur Primary Care Physician Bony ACCOUNT SERVICES SPECIALIST-C, Ankur Attending Physician Kaila Chavez Attending Physician Vijay SANCHEZ, Dr. Devon Reed Nurse Practitioner [phone] Roxy Rodriguez Nurse Practitioner Angel SANCHEZ, Dr. Denney Attending Physician Ori LOPEZ, Gabriela Unavailable Unavailable KAILA CURIEL Attending Unavailable BONY, ANKUR Primary Care Unavailable BITTENBENDER, PETER Admitting Unavailable BITTENBENDER, PETER Attending Unavailable BONY, ANKUR Primary Care Unavailable KAILA CURIEL Attending Unavailable BONY, ANKUR Primary Care Unavailable KAILA CURIEL Attending Unavailable BONY, ANKUR Primary Care Unavailable JUSTIN RESENDIZ Attending Unavailable BONY, ANKUR Primary Care Unavailable OLIMPIA THOMPSON Attending Unavailable BONY, ANKUR Primary Care Unavailable JOLENE RESENDIZ Attending Unavailable RESENDIZ, JOLENE Referring Unavailable BONY, ANKUR Primary Care Unavailable KAILA CURIEL Attending Unavailable KAILA CURIEL Referring Unavailable BONY, ANKUR Primary Care Unavailable KAILA CURIEL Attending Unavailable MOISÉS, KAILA Referring Unavailable BONY, ANKUR Primary Care Unavailable BONY, ANKUR Attending Unavailable RESENDIZ, JOLENE Referring Unavailable BONY, ANKUR Primary Care Unavailable DAVID RESENDIZGAN Attending Unavailable RESENDIZ, JOLENE Referring Unavailable BONY, ANKUR Primary Care Unavailable JOLENE RESENDIZ Attending Unavailable RESENDIZ, JOLENE Referring Unavailable BONY, ANKUR Primary Care Unavailable Kaila Toribio Attending Unavailabl e VijayDevon marroquin Consulting Unavailable Kaila Toribio Referring Unavailabl e Bony, Ankur Primary Care Unavailable Ridge, Roxy Consulting Unavailable Bony, Ankur Primary Care Unavailable Kaila Toribio Attending Unavailabl e Vijay Kiko Consulting Unavailable Kaila Toribio Referring Unavailabl e Ridge, Roxy Consulting Unavailable Vijay, Kiko Consulting Unavailable Kaila Toribio Attending Unavailabl Kaila Riggins Referring Unavailabl e Bony, Ankur Primary Care Unavailable Kaila Toribio Attending Unavailabl e Devon Briones Consulting Unavailable Kaila Toribio Referring Unavailabl e Bony, Ankur Primary Care Unavailable Kaila Toribio Attending Unavailabl e Devon Briones Consulting Unavailable Kaila Toribio Referring Unavailabl e Bony, Ankur Primary Care Unavailable Ridge, Roxy Consulting Unavailable Kaila Toribio Attending Unavailabl Devon Young Consulting Unavailable Kaila Toribio Referring Unavailabl e Bony, Ankur Primary Care Unavailable Roxy Rodriguez Unavailable Bony, Ankur Primary Care Unavailable Bony, Ankur Attending Unavailable Bony, Ankur Primary Care Unavailable Олег Ortiz Attending Unavailable Bony, Ankur Referring Unavailable Sharon Malave Attending Unavailable Bony, Ankur Primary Care Unavailable Sharon Malave Attending Unavailable Bony, Ankur Primary Care Unavailable Allergies Allergy Classification Reported Allergen(s) Allergy Type Date of Onset Reaction(s) Facility (4 sources) cefuroxime; Translations: [CEFUROXIME AXETIL] Drug Allergy 3 [facility] Repository (20 sources) levoFLOXacin; Translations: [LEVOFLOXACIN] Drug Allergy 7 [facility] Repository (20 sources) Cefuroxime Drug Allergy 2 [facility] (20 sources) Cephalexin Drug Allergy 2 Unknown [facility] (20 sources) Lisinopril Drug Allergy 2 Unknown [facility] (20 sources) rosuvastatin Drug Allergy 2 severe myalgias [facility] (20 sources) Lisinopril Propensity to adverse reactions 4 [facility] (17 sources) cefTRIAXone Drug Allergy 4 [facility] (1 source) Cefuroxime Drug Allergy 5 [facility] Repository (1 source) Cephalexin Drug Allergy 5 [facility] Repository (1 source) Lisinopril Drug Allergy 5 [facility] Repository (1 source) rosuvastatin Drug Allergy 5 [facility] Repository Medications Current Medications Medication Drug Class(es) Dates Sig (Normalized) Sig (Original) amLODIPine 10 mg oral tablet (20 sources) Dihydropyridine Calcium Channel Shawn Start: 07-08-2024 End: 01-19-2025 take 1 tablet by mouth once daily Start: 04-26-2024 End: 04-26-2024 take 2.5 mg by mouth once daily 2.5 mg, Oral, Daily, F irst dose (after last modification) on Thu04/26/24 at 0900 Start: 02-15-2024 take 2 tablets by mo uth once daily amLODIPine (Norvasc) 5 MG tablet Take 10 mg by mouth daily. 02/15/2024 Active Start: 02-15-2024 take 2.5 mg by mouth once joes y amLODIPine (Norvasc) 5 MG tablet Take 2.5 mg by mouth daily. 02/15/2024 Active Start: 02-01-2024 End: 07-08-2024 take 1 tablet by mouth once daily Amlodipine 5 mg tablet Discontinued 5 mg PO DAILY 90 3 February 01, 2024 9:44am July 08, 2024 10:34am Start: 10-09-2021 End: 02-12-2022 Amlodipine 5 mg tablet Disco ntinued 5 mg PO .PRN as needed for blood pressure greater 140/90 mmHg 90 0 October 09, 2021 11:56am February 12, 2022 1:35pm Start: 06-12-2021 End: 02-12-2022 take 1 tablet by mouth once daily Amlodipine 5 mg tablet Discontinued 5 mg PO DAILY July 31, 2021 11:09am October 09, 2021 11:57am blood pressure Start: 12-02-2019 End: 01-19-2020 take 1 tablet by mouth once daily Amlodipine 5 mg tablet Discontinued 5 mg PO DAILY 90 December 02, 2019 8:41am January 19, 2020 9:49am blood pressure Start: 02-04-2019 End: 12-02-2019 take 2.5 mg by mouth once daily Amlodipine 5 mg tablet Discontinued 2.5 mg PO DAILY February 04, 2019 10:05am December 02, 2019 8:41am blood pressure Start: 02-04-2019 End: 12-02-2019 take 2.5 mg by mouth once daily Amlodipine Discontinue d 2.5 MG PO DAILY February 04, 2019 10:05am December 02, 2019 8:41am Start: 02-04-2019 End: 02-04-2019 take 1 tablet by mouth once daily Amlodipine 5 mg tablet Discontinued 5 mg PO DAILY February 04, 2019 10:02am February 04, 2019 10:05am Start: 10-28-2018 End: 02-04-2019 take 1 tablet by mouth twice daily Amlodipine 5 mg tablet Discontinued 5 mg PO TWICE A DAY 180 October 28, 2018 12:00am February 04, 2019 10:03am Start: 04-05-2018 End: 04-06-2018 take 1 tablet by mouth once daily Amlodipine 5 mg tablet Discontinued 5 mg PO DAILY April 05, 2018 9:59am April 06, 2018 10:06am Start: 12-04-2017 End: 04-12-2024 take 1 tablet by mouth once daily Amlodipine 2.5 mg tablet Discontinued 2.5 mg PO DAILY 90 3 February 23, 2023 10:08am February 01, 2024 9:46am Start: 10-17-2017 End: 04-05-2018 take 2.5 mg by mouth once daily Amlodipine 5 MG tablet Discontinued 2.5 mg PO DAILY October 17, 2017 1:38pm April 05, 2018 10:03am Start: 10-17-2017 End: 04-05-2018 take 2.5 mg by mouth once daily Amlodipine Discontinue d 2.5 MG PO DAILY October 17, 2017 1:38pm April 05, 2018 10:03am Start: 08-14-2017 End: 10-17-2017 take 1 tablet by mouth once daily Amlodipine 5 MG tablet Discontinued 5 mg PO DAILY 1 August 14, 2017 12:00am October 17, 2017 1:39pm Comment on above: Take 1 tablet by wendie th once daily. May take additional 2.5 mg if SBP is greater than 140 aspirin 81 mg delayed release oral tablet (20 sources) Platelet Aggregation Inhibitor, Nonsteroidal Anti-inflammatory Drug Start: 01-20-2024 End: 01-21-2024 take 81 mg by mouth once daily 81 mg, Oral, Daily, First dose on Thu01/20/24 at 0900 Start: 01-16-2024 End: 02-01-2024 take 1 tablet by mouth every other day Aspirin (Adult Aspirin Regimen) 81 mg tablet,delayed release (DR/EC) Discontinued 81 mg PO EVERY OTHER DAY January 16, 2024 12:00am February 01, 2024 9:14am Start: 10-28-2018 End: 04-26-2024 aspirin 81 MG EC tablet Take 1 tablet (81 mg) by mouth daily. Continue ASA 81 mg until INR above 2.0 04/26/2024 Active Comment on above: Take 81 mg by mouth once daily. finasteride 5 mg oral tablet (20 sources) 5-alpha Reductase Inhibitor Start: 11-21-2019 End: 04-26-2024 take 1 tablet by mouth once daily Start: 01-07-2017 End: 10-28-2018 take 1 tablet by mouth once daily Finasteride 5 MG tablet Discontinued 5 mg PO DAILY October 17, 2017 12:00am October 28, 2018 11:13am Comment on above: Take 1 tablet by wendie th once daily. iv contrast (will be provided with radiology test) (1 source) Start: 03-11-20 End: 03-12-20 iv contrast (will be provided with radiology test) Indications: Malignant neoplasm of thymus (HCC) CT Chest W -Inject, intravenously, once for 1 dose.No IV access, insert saline lock prior to the beginning of sedation, infusion, injection of imaging exam. Discontinue saline lock post exam. If Pt. has a central line or IVAD, may access for administration according to line specific nursing protocol. Once exam is complete flush line and de-access according to line specific nursing protocol in the CT contrast administration guidelines link. 1 Each 0 03/11/2022 03/12/2022 Active Comment on above: CT Chest W -Inject, intravenously, once for 1 dose.No IV access, insert saline lock prior to the beginning of sedation, infusion, injection of imaging exam. Discontinue saline lock post exam. If Pt. has a central line or IVAD, may access for administration according to line specific nursing protocol. Once exam is complete flush line and de-access according to line specific nursing protocol in the CT contrast administration guidelines link. lysine 500 mg oral tablet (20 sources) Start: 06-09-19 take 1 tablet by mouth once daily Start: 10-28-2018 End: 02-04-2019 take 1 tablet by mouth once daily Lysine 500 mg tablet Discontinued 500 mg PO DAILY October 28, 2018 12:00am February 04, 2019 9:33am Start: 05-20-2017 End: 04-05-2018 take 1 tablet by mouth once daily Lysine 500 MG tablet Discontinued 500 mg PO DAILY May 20, 2017 1:00am April 05, 2018 10:02am Multiple Vitamin (multivitamin) capsule (20 sources) take 1 capsule by mouth once daily Multiple Vitamin (multivitamin) capsule Take 1 capsule by mouth daily. Active Multivitamin preparation (15 sources) Start: 07-31-2021 take 1 tablet by mouth once daily Multivitamin Active 1 TABLET PO DAILY July 31, 2021 11:10am Start: 07-31-2021 take 1 tablet by wendie th once daily Multivitamin Active 1 TABLET PO DAILY July 31, 2021 12:00am Start: 07-31-2021 take 1 tablet by wendie th once daily Multivitamin Active 1 TABLET PO DAILY July 31, 2021 1:00am Multivitamin tablet (4 sources) Start: 07-31-2021 Start: 07-31-2021 Multivitamin t ablet Active 1 {tbl} PO DAILY July 31, 2021 1:00am vitamin nitroglycerin 0.4 mg sublingual tablet (20 sources) Nitrate Vasodilator Start: 12-21-2018 End: 02-01-2024 24 hr oxybutynin chloride 5 mg extended release oral tablet (3 sources) Cholinergic Muscarinic Antagonist Start: 01-19-2025 take 1 tablet by mouth once daily vitamin b12 1 mg oral tablet (20 sources) Vitamin B12 Start: 06-27-2021 End: 01-21-2024 take 1 tablet by mouth once daily Completed/Discontinued Medications Medication Drug Class(es) Dates Sig (Normalized) Sig (Original) acetaminophen 500 mg oral tablet (20 sources) Start: 04-25-2024 End: 04-26-2024 1,000 mg, Oral, 3 times daily PRN, mild pain (1-3), Starting on Thu04/25/24 at 1257, Maximum dose of acetaminophen is 4000 mg from all sources in 24 hours. Start: 01-20-2024 End: 01-21-2024 take 1 tablet by mouth every six hours as needed for pain and fever acetaminophen (Tylenol) tablet 650 mg Start: 01-20-2024 End: 01-21-2024 Start: 07-12-2021 End: 10-09-2021 Start: 07-12-2021 End: 10-09-2021 take 3000 mg by mouth three times daily Acetaminophen Active 1000 MG PO THREE TIMES A DAY October 09, 2021 11:20am Do not take more than 3000 mg Tylenol in a 24-hour period. take 2 tablets by mo uth three times daily as needed for pain acetaminophen (Tylenol) 500 MG tablet Take 1,000 mg by mouth 3 times daily as needed for mild pain (1-3). Active amiodarone hydrochloride 200 mg oral tablet (20 sources) Antiarrhythmic Start: 04-25-2024 End: 04-26-2024 take 100 mg by mouth once daily 100 mg, Oral, Daily, First dose on Thu04/25/24 at 1300 Start: 02-17-2024 Start: 01-20-2024 End: 01-21-2024 take 100 mg by mouth once daily 100 mg, Oral, Daily, F irst dose on Thu01/20/24 at 0900 Start: 01-10-2022 End: 02-17-2024 take 1 tablet by mouth once daily Amiodarone 100 mg tablet Discontinued 100 mg PO DAILY 90 3 December 29, 2022 2:25pm February 17, 2024 9:04am Start: 09-30-2021 End: 01-10-2022 Amiodarone 200 mg tablet Discontinued 100 mg PO DAILY 35 0 September 30, 2021 10:57am January 10, 2022 8:18am Start: 09-30-2021 End: 01-10-2022 take 100 mg by mouth once daily Amiodarone Discontinue d 100 MG PO DAILY 35 September 30, 2021 10:57am January 10, 2022 8:18am Start: 09-18-2021 End: 09-30-2021 Amiodarone 200 mg tablet Discontinued 200 mg PO DAILY 35 0 September 18, 2021 12:00am September 30, 2021 2:41pm 1 tab p.o. every 8 hours x1 week, then 1 tab p.o. every 12 hours x1 week, then 1 tab p.o. daily as previously prescribed. Start: 09-17-2021 End: 09-20-2021 take 1 tablet by mouth once daily Amiodarone 200 mg tablet Discontinued 200 mg PO DAILY September 18, 2021 3:41pm September 20, 2021 9:15am HEART atorvastatin 80 mg oral tablet (11 sources) HMG-CoA Reductase Inhibitor Start: 01-20-2024 End: 01-21-2025 take 1 tablet by mouth once daily atorvastatin (Lipitor) 80 MG tablet Take 1 tablet (80 mg) by mouth daily. 30 tablet 01/22/2024 04/12/2024 Discontinued (Side effects) calcium carbonate with vitamin d (19 sources) Start: 04-05-2018 End: 10-28-2018 calcium carbonate with vitamin d Discontinued PO .q day April 05, 2018 9:59am October 28, 2018 11:12am Start: 04-05-2018 End: 10-28-2018 calcium carbonate with vitam in d Discontinued PO .q day 0 April 05, 2018 1:00am October 28, 2018 11:12am Start: 04-05-2018 End: 10-28-2018 calcium carbonate with vitam in d Discontinued PO .q day April 05, 2018 12:00am October 28, 2018 10:12am Start: 04-05-2018 End: 10-28-2018 calcium carbonate with vitam in d Discontinued PO .q day April 05, 2018 1:00am October 28, 2018 11:12am carvedilol 3.125 mg oral tablet (20 sources) alpha-Adrenergic Shawn, beta-Adrenergic Shawn Start: 05-05-2024 End: 05-05-2025 take 1 tablet by mouth twice daily at mealtime carvedilol (Coreg) 3.125 MG tablet Indications: First degree AV block , Other specified heart block , Abnormal EKG , S/P TAVR (transcatheter aortic valve replacement) Take 1 tablet (3.125 mg) by mouth 2 times daily (with meals). 60 tablet 11 05/05/2024 03/30/2025 Discontinued Start: 04-26-2024 take 12.5 mg by mouth once 12. 5 mg, Oral, Once, On Thu04/26/24 at 1230, For 1 dose Start: 09-18-2021 End: 01-19-2025 take 1 tablet by mouth twice daily at mealtime Carvedilol (Coreg) 12.5 mg tablet Discontinued 12.5 mg PO TWICE A DAY 180 3 November 20, 2023 10:27am January 19, 2025 9:53am must administer with a meal/food Start: 01-19-2020 End: 06-27-2021 take 1 tablet by mouth once daily Carvedilol 6.25 mg tablet Discontinued 6.25 mg PO DAILY January 19, 2020 10:10am June 27, 2021 3:40pm BP Start: 08-14-2017 End: 09-20-2021 take 1 tablet by mouth twice daily Carvedilol 6.25 MG tablet Discontinued 6.25 mg PO TWICE A DAY November 19, 2019 11:15pm January 19, 2020 10:10am BP Comment on above: Take 1 tablet by wendie th twice daily. cephalexin 500 mg oral capsule (19 sources) Cephalosporin Antibacterial Start: 02-15-20 End: 06-27-19 take 1 capsule by mouth every eight hours Cephalexin 500 mg capsule Discontinued 500 mg PO Q8H 21 7 0 February 14, 2021 12:00am June 27, 2021 3:39pm cholecalciferol 0.025 mg oral tablet (20 sources) Vitamin D Start: 01-20-20 End: 01-21-20 take 1000 [IU] by mouth once daily 1,000 Units, Oral, Daily, First dose on Thu01/20/24 at 0900 Start: 06-27-2021 take 1 tablet by mouth once da wil ciprofloxacin 500 mg oral tablet (16 sources) Quinolone Antimicrobial Start: 11-18-2021 End: 02-12-2022 take 1 tablet by mouth twice daily Ciprofloxacin Hcl (Cipro) 500 mg tablet Discontinued 500 mg PO TWICE A DAY 14 0 November 18, 2021 12:00am February 12, 2022 1:00pm clopidogrel 75 mg oral tablet (20 sources) [id number] Platelet Inhibitor Start: 02-01-2024 End: 06-02-2025 take 1 tablet by mouth once daily clopidogrel (Plavix) 75 MG tablet Take 1 tablet (75 mg) by mouth daily. 90 tablet 2 06/02/2024 03/30/2025 Discontinued Start: 01-22-2024 End: 01-21-2024 take 75 mg by mouth once daily 75 mg, Oral, Daily, Fir st dose on Thu01/22/24 at 0900, For 365 days Start: 01-22-2024 End: 01-21-2024 take 75 mg by mouth once daily 75 mg, Oral, Daily, Fir st dose on Thu01/22/24 at 0900, For 365 days Start: 02-12-2022 End: 03-30-2025 take 1 tablet by mouth once daily in the evening clopidogrel (Plavix) 75 MG tablet Indications: Percutaneous Coronary Intervention Take 1 tablet (75 mg) by mouth daily. 90 tablet 1 01/21/2024 1:43 PM EDT 01/21/2024 03/30/2025 Discontinued doxycycline monohydrate 100 mg oral capsule (19 sources) Tetracycline-class Drug Start: 07-12-2021 End: 07-31-2021 take 1 capsule by mouth twice daily Doxycycline Monohydrate 100 mg Capsule Discontinued 100 mg PO TWICE A DAY 26 0 July 12, 2021 1:00am July 31, 2021 11:11am Take for 2 weeks postoperatively dutasteride 0.5 mg oral capsule (19 sources) 5-alpha Reductase Inhibitor Start: 10-28-2018 End: 06-09-2019 take 1 capsule by mouth once daily Dutasteride 0.5 mg capsule Discontinued 0.5 mg PO DAILY October 28, 2018 12:00am June 09, 2019 10:38am 0.6 ml enoxaparin sodium 100 mg/ml prefilled syringe (20 sources) Low Molecular Weight Heparin Start: 10-28-2018 End: 11-12-2018 Enoxaparin (Lovenox) 60 mg/0.6 mL syringe Discontinued 60 mg SC Q12H 2.4 3 October 28, 2018 12:00am November 12, 2018 11:33am twice daily day before heart cath Start: 10-28-2018 End: 12-21-2018 Enoxaparin (Lovenox) 60 mg/0 .6 mL syringe Discontinued 60 mg SC Q12H 2.4 2 November 24, 2018 8:52am December 21, 2018 3:25pm Coumadin on HOLD until stent procedure flecainide acetate 50 mg oral tablet (20 sources) Antiarrhythmic Start: 08-05-2021 End: 09-16-2021 take 1 tablet by mouth twice daily Flecainide 50 mg tablet Discontinued 50 mg PO TWICE A DAY 180 3 August 05, 2021 11:29am September 16, 2021 11:02am heart Start: 11-19-2019 End: 08-05-2021 Flecainide 100 MG tablet Discontinued 50 mg PO TWICE A DAY November 19, 2019 12:00am August 05, 2021 11:30am heart Start: 11-19-2019 End: 08-05-2021 take 50 mg by mouth twice daily Flecainide Discontinue d 50 MG PO TWICE A DAY November 19, 2019 12:00am August 05, 2021 11:30am Start: 04-05-2018 End: 08-05-2019 take 1 tablet by mouth every twelve hours Flecainide 50 mg tablet Discontinued 50 mg PO Q12H 180 3 July 06, 2019 6:13pm August 05, 2019 1:33pm Start: 05-20-2017 End: 04-05-2018 Flecainide 100 MG tablet Discontinued 50 mg PO TWICE A DAY May 20, 2017 1:00am April 05, 2018 10:01am Start: 05-20-2017 End: 04-05-2018 take 50 mg by mouth twice daily Flecainide Discontinue d 50 MG PO TWICE A DAY May 20, 2017 1:00am April 05, 2018 10:01am 250 ml heparin sodium, porcine 100 unt/ml injection (6 sources) Unfractionated Heparin, Anti-coagulant Start: 01-20-2024 End: 01-20-2024 4,000 Units, IntraVENous, Once, On Thu01/20/24 at 0230, For 1 dose, Initial one time bolus Start: 01-20-2024 End: 01-20-2024 5-30 Units/kg/hr 70.3 kg (3. 515-21.09 mL/hr, rounded to 3.5- 21.1 mL/hr), IntraVENous, Continuous, Starting on Thu01/20/24 at 0230, LOW Dose Heparin Weight Based Dosing (CAD/STEMI/NSTEMI/AFIB/ECMO) >>>>Initial dose: 12 units/kg/hr 95.9 Hold heparin for 60 min Decrease infusion by 2 units/kg/hr - notify prescriber; Check aPTT: 6 hours after initiation and 6 hours after every dose change - every 12 hrs x 1 day after 2 consecutive therapeutic aPTT - daily after every 12 hrs x 1 day is complete. Start: 01-20-2024 End: 01-21-2024 2,000 Units, IntraVENous, As needed, heparin dosing algorithm, Starting on Thu01/20/24 at 0221, Half dose re-bolus based on pharmacy algorithm hydroCHLOROthiazide 25 mg oral tablet (20 sources) Thiazide Diuretic Start: 04-05-2018 End: 10-28-2018 Hydrochlorothiazide 25 mg tablet Discontinued 12.5 mg PO DAILY April 06, 2018 10:07am October 28, 2018 11:12am Start: 04-05-2018 End: 10-28-2018 take 12.5 mg by mouth once daily Hydrochlorothiazide Discontinued 12.5 MG PO DAILY April 06, 2018 10:07am October 28, 2018 11:12am Start: 08-14-2017 End: 04-05-2018 take 1 capsule by mouth once daily Hydrochlorothiazide 12.5 MG capsule Discontinued 12.5 mg PO DAILY 30 0 August 14, 2017 12:00am April 05, 2018 10:03am Start: 05-12-2014 End: 07-11-2014 Hydrochlorothiazide 25 MG ta blet Discontinued 12.5 mg PO DAILY May 12, 2014 1:00am July 11, 2014 12:35pm Start: 05-12-2014 End: 07-11-2014 take 12.5 mg by mouth once daily Hydrochlorothiazide Discontinued 12.5 MG PO DAILY May 12, 2014 1:00am July 11, 2014 12:35pm iopamidol (Isovue-370) 76 % injection 100 mL (2 sources) Start: 04-12-2024 End: 04-12-2024 take 100 mL intravenously once as needed 100 mL, IntraVENous, IMG once PRN, contrast, Starting on Thu04/12/24 at 1023, For 1 dose ketorolac tromethamine 5 mg/ml ophthalmic solution (17 sources) Nonsteroidal Anti-inflammatory Drug, Cyclooxygenase Inhibitor Start: 01-21-2024 End: 04-12-2024 ketorolac (Acular) 0.5 % ophthalmic solution Administer 1 drop into both eyes in the morning and 1 drop at noon and 1 drop in the evening and 1 drop before bedtime. 5 mL 01/21/2024 1:43 PM EDT 01/21/2024 04/12/2024 Discontinued (Therapy completed) Start: 01-20-2024 End: 01-21-2024 1 drop, Both Eyes, 4 times d aily, First dose on Thu01/20/24 at 0900 Start: 01-16-2024 End: 01-19-2025 Ketorolac 0.4 % drops Discon tinued 1 NMA RIGHT EYE THREE TIMES A DAY January 16, 2024 12:00am January 19, 2025 9:54am post cataract surgery End: 01-21-2024 ketorolac (Acular) 0.4 % oph thalmic solution Administer 1 drop into both eyes in the morning and 1 drop at noon and 1 drop in the evening and 1 drop before bedtime. 01/21/2024 Discontinued levothyroxine sodium 0.1 mg oral tablet (20 sources) l-Thyroxine Start: 01-20-2024 End: 01-21-2024 take 100 ug by mouth once daily before breakfast 100 mcg, Oral, Daily before breakfast, First dose on Thu01/20/24 at 0600, Tube feeding (TF) interaction, obtain physician order to manage, recommend holding TF for 30 minutes before and after dose. Start: 11-05-2023 take 1 capsule by mo [facility] once daily Start: 07-07-2023 End: 11-05-2023 Levothyroxine 88 mcg tablet Discontinued 100 ug PO DAILY July 07, 2023 11:43am November 05, 2023 10:52am Start: 07-07-2023 take 100 ug by mouth once jose y Levothyroxine Active 100 MCG PO DAILY July 07, 2023 11:43am Start: 10-09-2021 End: 07-07-2023 take 1 tablet by mouth once daily Levothyroxine 88 mcg tablet Discontinued 88 ug PO DAILY October 09, 2021 12:00am July 07, 2023 11:44am Start: 09-30-2021 End: 10-09-2021 Levothyroxine 75 mcg tablet Discontinued 88 ug PO DAILY September 30, 2021 10:22am October 09, 2021 11:18am thyroid Start: 09-30-2021 End: 10-09-2021 take 88 ug by mouth once daily Levothyroxine Discontin ued 88 MCG PO DAILY September 30, 2021 10:22am October 09, 2021 11:18am Start: 08-30-2013 End: 09-30-2021 take 1 tablet by mouth once daily Levothyroxine 75 MCG tablet Discontinued 75 ug PO DAILY January 07, 2017 12:00am September 30, 2021 10:23am thyroid Comment on above: [facility]. lisinopril 10 mg oral tablet (20 sources) Angiotensin Converting Enzyme Inhibitor Start: 7 End: 8 take 2 tablets by mouth twice daily Lisinopril 10 MG tablet Discontinued 20 mg PO TWICE A DAY January 07, 2017 12:00am April 05, 2018 10:02am Start: 01-07-2017 End: 04-05-2018 take 20 mg by mouth twice daily Lisinopril Discontinue d 20 MG PO TWICE A DAY January 07, 2017 12:00am April 05, 2018 10:02am Start: 07-11-2014 End: 04-08-2016 take 1 tablet by mouth once daily Lisinopril 5 MG tablet Discontinued 5 mg PO DAILY 30 0 July 11, 2014 1:00am April 08, 2016 4:58pm Start: 05-12-2014 End: 07-11-2014 take 1 tablet by mouth once daily Lisinopril 2.5 MG tablet Discontinued 2.5 mg PO DAILY May 12, 2014 1:00am July 11, 2014 12:34pm melatonin 3 mg oral tablet (2 sources) Start: 04-25-2024 End: 04-26-2024 take 3 mg by mouth once daily as needed for sleep 3 mg, Oral, Nightly PRN, sleep, Starting on Thu04/25/24 at 2247 metoprolol tartrate 25 mg oral tablet (19 sources) beta-Adrenergic Shawn Start: 01-07-2017 End: 08-14-2017 Metoprolol Tartrate 25 MG tablet Discontinued 12.5 mg PO TWICE A DAY January 07, 2017 12:00am August 14, 2017 2:52pm Start: 01-07-2017 End: 08-14-2017 take 12.5 mg by mouth twice daily Metoprolol Tartrate Discontinued 12.5 MG PO TWICE A DAY January 07, 2017 12:00am August 14, 2017 2:52pm multivitamins(MULTIPLE VITAMINS TAB) (3 sources) Start: 05-01-2009 multivitamins(MULTIPLE VITAMINS TAB) Take one(1) tablet daily. 0 05/01/2009 Active Comment on above: Take one(1) tablet d aily. mupirocin 0.02 mg/mg topical ointment (2 sources) RNA Synthetase Inhibitor Antibacterial Start: 04-25-2024 End: 04-26-2024 1 Application, Nasal, 2 times daily, First dose on Thu04/25/24 at 1230, For 5 days, Recovery [facility] On Unit, Indications: MRSA Nasal Decolonization nitrofurantoin, macrocrystals 25 mg / nitrofurantoin, monohydrate 75 mg oral capsule (17 sources) Nitrofuran Antibacterial Start: 11-07-2021 End: 02-12-2022 take 1 capsule by mouth every twelve hours Nitrofurantoin Monohyd/M-Cryst 100 mg capsule Discontinued 100 mg PO EVERY 12 HOURS 10 0 November 07, 2021 12:00am February 12, 2022 1:00pm ofloxacin 3 mg/ml ophthalmic solution (4 sources) Quinolone Antimicrobial Start: 01-16-2024 End: 01-17-2024 take 0.3 drop(s) into the eye(s) three times daily Ofloxacin 0.3 % drops Discontinued 1 NMA RIGHT EYE 3 times daily January 16, 2024 12:00am January 17, 2024 9:48am post eye sx [place]-3 Fatty Acids (Fish Oil Concentrate) 1,000 mg capsule (19 sources) Start: 10-28-2018 End: 02-04-2019 take 1 capsule by mouth once daily [place]-3 Fatty Acids (Fish Oil Concentrate) 1,000 mg capsule Discontinued 1000 MG PO DAILY October 28, 2018 11:12am February 04, 2019 9:33am Start: 10-28-2018 End: 02-04-2019 take 1 capsule by mouth once daily [place]-3 Fatty Acids (Fish Oil Concentrate) 1,000 mg capsule Discontinued 1000 mg PO DAILY October 28, 2018 12:00am February 04, 2019 9:33am Start: 10-28-2018 End: 02-04-2019 take 1 capsule by mouth once daily [place]-3 Fatty Acids (Fish Oil Concentrate) 1,000 mg capsule Discontinued 1000 MG PO DAILY October 27, 2018 11:00pm February 04, 2019 8:33am Start: 10-28-2018 End: 02-04-2019 take 1 capsule by mouth once daily [place]-3 Fatty Acids (Fish Oil Concentrate) 1,000 mg capsule Discontinued 1000 MG PO DAILY October 28, 2018 12:00am February 04, 2019 9:33am OTC NUTRITIONAL SUPPLEMENT (3 sources) OTC NUTRITIONAL SUPPLEMENT once daily. Nutriferon - for the immune system 0 Active Comment on above: once daily. Nutrifer on - for the immune system oxyCODONE hydrochloride 5 mg oral tablet (16 sources) Opioid Agonist Start: End: take 1 tablet by mouth every six hours as needed for pain Oxycodone 5 mg tablet Discontinued 5 mg PO EVERY 6 HOURS as needed for pain 10 3 0 November 18, 2021 February 12, 2022 1:00pm Cystitis Abdominal pain Cystitis, unspecified without hematuria Unspecified abdominal pain perflutren lipid microspheres (Definity) injection 1.65 mg (2 sources) Start: End: 1.65 mg (1.5 mL), IntraVENous, IMG once PRN, other, Starting on Amber 06/02/24 at 1143, For 1 dose, CV Procedural Medications, Once activated, final concentration equals 1.1 mg/mL polyethylene glycol 3350 01070 mg powder for oral solution (2 sources) Osmotic Laxative Start: End: take 17 g by mouth every twenty-four hours as needed for constipation 17 g, Oral, Daily PRN, constipation, Starting on Thu01/20/24 at 0208, 1st line for treatment of constipation - give scheduled if no bowel movement in past 24 hours. prednisoLONE acetate 10 mg/ml ophthalmic suspension (17 sources) Corticosteroid Start: End: prednisoLONE acetate (Pred-Forte) 1 % ophthalmic suspension Administer 1 drop into both eyes in the morning and 1 drop at noon and 1 drop in the evening and 1 drop before bedtime. 15 mL 01/21/2024 1:43 PM EDT 01/21/2024 04/12/2024 Discontinued (Therapy completed) Start: 01-20-2024 End: 01-21-2024 1 drop, Both Eyes, 4 times d aily, First dose on Thu01/20/24 at 0900 Start: 01-16-2024 End: 01-19-2025 Prednisolone Acetate 1 % fly ps,suspension Discontinued 1 NMA RIGHT EYE 3 times daily January 16, 2024 12:00am January 19, 2025 9:54am post eye sx prochlorperazine 25 mg rectal suppository (2 sources) Phenothiazine Start: 01-20-2024 End: 01-21-2024 take 25 mg rectal route every twelve hours as needed for nausea 25 mg, Rectal, Every 12 hours PRN, nausea, vomiting, Starting on Thu01/20/24 at 0224 rosuvastatin calcium 5 mg oral tablet (20 sources) HMG-CoA Reductase Inhibitor Start: 07-31-2021 End: 02-12-2022 take 1 tablet by mouth once daily Rosuvastatin 5 mg tablet Discontinued 5 mg PO DAILY July 31, 2021 11:09am February 12, 2022 1:00pm cholesterol Start: 07-10-2021 End: 07-31-2021 take 2 tablets by mouth once daily Rosuvastatin 5 mg tablet Discontinued 10 mg PO DAILY July 10, 2021 10:38am July 31, 2021 11:11am cholesterol Start: 07-10-2021 End: 07-31-2021 take 10 mg by mouth once daily Rosuvastatin Discontinu ed 10 MG PO DAILY July 10, 2021 10:38am July 31, 2021 11:11am Start: 10-28-2018 End: 07-10-2021 take 1 tablet by mouth once daily Rosuvastatin 5 mg tablet Discontinued 5 mg PO DAILY October 28, 2018 12:00am July 10, 2021 10:39am cholesterol Start: 04-05-2018 End: 04-06-2018 take 1 tablet by mouth once daily Rosuvastatin 5 mg tablet Discontinued 5 mg PO DAILY April 05, 2018 1:00am April 06, 2018 10:08am take 10 mg by mouth every week r osuvastatin (CRESTOR) 20 mg tablet Take 10 mg by mouth once each week. 0 Active Comment on above: Take 10 mg by mouth once each week. 1000 ml sodium chloride 9 mg/ml injection (10 sources) Start: 04-25-2024 End: 04-25-2024 take 50 mL intravenously every hour 50 mL/hr, IntraVENous, Continuous, Starting on Thu04/25/24 at 0930, Preprocedure, Upon admission to sameday - please start iv if patient does not have iv access. Start: 01-20-2024 End: 01-21-2024 take 5-40 mL intravenously every twelve hours 5-40 mL, IntraVENous, Every 12 hours, First dose on Thu01/20/24 at 0215, For Line Patency: Peripheral IV = 5 mL; Midline or Central Line = 10 mL/lumen. If following IV push medication, administer flush at same rate as the IV push. Flush volume is determined by type of infusion therapy being given. For non-viscous solutions use: Peripheral IV = 5 mL Midline or Central Line = 10 mL/lumen For viscous solutions (i.e. blood components, parenteral nutrition, contrast media, or after obtaining blood sample) use: Peripheral IV = 10 mL Midline or Central Line = 20 mL/lumen Start: 01-20-2024 End: 01-21-2024 take 100 mL intravenously every hour 100 mL/hr, IntraVENous, Continuous, Starting on Thu01/20/24 at 1315, For 4 hours, Recovery & On Unit Start: 01-20-2024 End: 01-21-2024 5-40 mL, IntraVENous, PRN, l ine care, After every IV line use, Starting on Thu01/20/24 at 0208, For Line Patency: Peripheral IV = 5 mL; Midline or Central Line = 10 mL/lumen. If following IV push medication, administer flush at same rate as the IV push. Flush volume is determined by type of infusion therapy being given. For non-viscous solutions use: Peripheral IV = 5 mL Midline or Central Line = 10 mL/lumen For viscous solutions (i.e. blood components, parenteral nutrition, contrast media, or after obtaining blood sample) use: Peripheral IV = 10 mL Midline or Central Line = 20 mL/lumen Therapeutic Multivitamin (15 sources) Start: 01-07-2017 End: 07-31-2021 Therapeutic Multivitamin Dis continued 1 EACH PO DAILY January 07, 2017 6:56pm July 31, 2021 11:10am Start: 01-07-2017 End: 07-31-2021 Therapeutic Multivitamin Dis continued 1 EACH PO DAILY January 06, 2017 11:00pm July 31, 2021 10:10am Start: 01-07-2017 End: 07-31-2021 Therapeutic Multivitamin Dis continued 1 EACH PO DAILY January 07, 2017 12:00am July 31, 2021 11:10am Therapeutic Multivitamin 1 EACH tablet (4 sources) Start: 01-07-2017 End: 07-31-2021 Therapeutic Multivitamin 1 EACH tablet Discontinued 1 NMA PO DAILY January 07, 2017 12:00am July 31, 2021 11:10am supplement therapeutic multivitamin-minerals (Theragran-M) tablet (2 sources) Start: 01-20-2024 End: 01-21-2024 take 1 tablet by mouth once daily 1 tablet, Oral, Daily, First dose on Thu01/20/24 at 0900 ticagrelor 90 mg oral tablet (20 sources) Start: 01-20-2024 End: 01-21-2024 90 mg, Oral, 2 times daily, First dose on Thu01/20/24 at 2100, Recovery & On Unit, Ticagrelor maintenance dose should be given with 81mg of Aspirin. Start: 11-07-2021 End: 02-12-2022 take 1 tablet by mouth twice daily Ticagrelor (Brilinta) 90 mg tablet Discontinued 1 {tbl} PO TWICE A DAY November 07, 2021 12:00am February 12, 2022 12:59pm Start: 09-16-2021 End: 11-04-2021 take 1 tablet by mouth twice daily Ticagrelor (Brilinta) 90 mg tablet Discontinued 90 mg PO TWICE A DAY 60 30 12 October 09, 2021 12:29pm November 04, 2021 11:00am ubidecarenone 100 mg oral capsule (19 sources) Start: 08-13-2017 End: 06-27-2021 take 10 capsules by mouth once daily Coenzyme Q10 100 MG capsule Discontinued 100 mg PO DAILY August 13, 2017 12:00am June 27, 2021 3:40pm supplement UBIDECARENONE (COQ-10 ORAL) (3 sources) take 100 mg by mouth every twelve hours UBIDECARENONE (COQ-10 ORAL) Take 100 mg by mouth every 12 hours. 0 Active Comment on above: Take 100 mg by mouth every 12 hours. warfarin sodium 5 mg oral tablet (20 sources) Vitamin K Antagonist Start: 07-07-2023 End: 04-27-2024 Start: 04-20-2023 End: 07-07-2023 take 1 tablet by mouth four times weekly Warfarin 7.5 mg tablet Discontinued 7.5 mg PO 4 times per week Protocol: Adjustment Start Date: Thursday06/15/23INR Value: 2.9INR Date: 06/15/23Recheck Date: 07/15/23 Condition: Thursday Dose/Route: 7.5 mg Instructions: 1 x 7.5 mg tablet Condition: Thursday Dose/Route: 7.5 mg Instructions: 1 x 7.5 mg tablet Condition: Thursday Dose/Route: 5 mg Instructions: 1 x 5 mg tablet Condition: Thursday Dose/Route: 7.5 mg Instructions: 1 x 7.5 mg tablet Condition: Dose/Route: 5 mg Instructions: 1 x 5 mg tablet Condition: Thursday Dose/Route: 5 mg Instructions: 1 x 5 mg tablet Condition: Thursday Dose/Route: 7.5 mg Instructions: 1 x 7.5 mg tablet 60 April 20, 2023 1:00am July 07, 2023 11:44am Please contact the information source for Protocol details. Start: 10-22-2022 End: 04-27-2024 Warfarin 5 mg tablet Discont inued 5 mg PO DAILY Protocol: Adjustment Start Date: 11/05/23INR Value: 2.0INR Date: 11/05/23Recheck Date: 12/03/23 Condition: Thursday Dose/Route: 7.5 mg Instructions: 1 x 7.5 mg tablet Condition: Thursday Dose/Route: 7.5 mg Instructions: 1 x 7.5 mg tablet Condition: Thursday Dose/Route: 5 mg Instructions: 1 x 5 mg tablet Condition: Thursday Dose/Route: 7.5 mg Instructions: 1 x 7.5 mg tablet Condition: Dose/Route: 5 mg Instructions: 1 x 5 mg tablet Condition: Thursday Dose/Route: 5 mg Instructions: 1 x 5 mg tablet Condition: Thursday Dose/Route: 7.5 mg Instructions: 1 x 7.5 mg tablet 90 April 20, 2023 4:44pm January 16, 2024 10:13am Take one tab (5mg every day) and one and a half tab (7.5mg) on /Thu/Thu/Sun.; or use as directed. Please contact the information source for Protocol details. Start: 09-14-2021 End: 10-09-2021 take 1 tablet by mouth every other day Warfarin 5 mg Tablet Discontinued 5 mg PO EVERY OTHER DAY September 14, 2021 12:00am October 09, 2021 11:38am blood thinner Start: 01-19-2020 End: 10-09-2021 take 1 tablet by mouth every other day Warfarin 7.5 mg tablet Discontinued 7.5 mg PO EVERY OTHER DAY January 19, 2020 12:00am October 09, 2021 11:38am blood thinner Start: 12-01-2018 End: 11-21-2019 take 1 tablet by mouth once daily Warfarin 7.5 MG tablet Discontinued 7.5 mg PO DAILY November 19, 2019 11:15pm November 21, 2019 6:55am blood clots take 1 tablet by wendie th four times weekly warfarin (Coumadin) 5 MG tablet Take 5 mg by mouth four times a week. Take as directed per [facility] Active Comment on above: Take 7.5 mg by mouth once daily. Problems Active Problems Problem Classification Problem Date Documented Date Episodic/Chronic Acute myocardial infarction (20 sources) Myocardial infarction; Translations: [Non-ST elevation (NSTEMI) myocardial infarction] Chronic Aortic; peripheral; and visceral artery aneurysms (20 sources) Bilateral carotid artery dissection; Translations: [Dissection of carotid artery] Onset: 04-16-2011 04-27-2017 Chronic Comment on above: Spontaneous Cancer; other and unspecified primary (20 sources) Malignant thymoma; 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] Onset: 06-10-2018 06-10-2018 Chronic Cancer; other and unspecified primary (1 source) Malignant tumor of thymus; 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] Chronic Cardiac dysrhythmias (20 sources) Supraventricular tachycardia; Translations: [Supraventricular tachycardia] Onset: 04-23-2017 Chronic Complication of device; implant or graft (16 sources) Other mechanical complication of indwelling urethral catheter, initial encounter; Translations: [Obstruction of Espinoza catheter] 11-15-2021 Episodic Conduction disorders (20 sources) First degree atrioventricular block; Translations: [Heart block ] Onset: 05-05-2024 05-05-2024 Chronic Coronary atherosclerosis and other heart disease (20 sources) Coronary atherosclerosis; Translations: [Atherosclerotic heart disease of [place] coronary artery without angina pectoris] Onset: 06-02-2024 Chronic Comment on above: Successful PTCA/JOSEFINA mid LAD with a 2.5 x 32 Promus Synergy, post dilated in proximal 2/3 with a 2.75 x 8 NC balloon, and flared at proximal stent with a 3.0 x 8 NC Balloon; 85%-->0%, no dissection.Successful PCI with PTCA to the balloon angioplasty only to ostium of DIAG#1 with a 2.0 x 12 balloon; 75%-->30%, no dissection. Coronary atherosclerosis and other heart disease (20 sources) Stented coronary artery; Translations: [Presence of coronary angioplasty implant and graft] Onset: 11-23-2018 Episodic Comment on above: 01/19/2024 proximal d iagonal Successful PCI of pr oximal OM eccentric 80% stenosis, with primary stenting using drug-eluting stent JOSEFINA/Orsiro Terry MR 3 x 22 mmPostdilated with 3 x 15 mm NC emerge balloon MR. With reduction of stenosis from 80% to 0%, And maintenance of pre and post NATHALIE-3 flow 10/01/21 Dr. Guillermo ;Successful PCI of the culprit, occluded proximal LAD stent with predilatation, followed by placement of drug-eluting stent 3 x 32 mm Synergy Postdilated with 3 x 20 mm NC balloon per cardiac cath 09/14/21 Dr. Guillermo ;Successful PTCA/JOSEFINA mid LAD with a 2.5 x 32 Promus Synergy, post dilated in proximal 2/3 with a 2.75 x 8 NC balloon, and flared at proximal stent with a 3.0 x 8 NC Balloon; 85%-->0%, no dissection.Successful PCI with PTCA to the balloon angioplasty only to ostium of DIAG#1 with a 2.0 x 12 balloon; 75%-->30%, no dissection. Diseases of white blood cells (20 sources) Leukocytosis; Translations: [Elevated white blood cell count, unspecified] Chronic Disorders of lipid metabolism (20 sources) Hyperlipidemia; Translations: [Hyperlipidemia, unspecified] Onset: 06-07-2009 Chronic Essential hypertension (20 sources) Essential hypertension; Translations: [Essential (primary) hypertension] Onset: 04-10-2016 Chronic Fluid and electrolyte disorders (20 sources) Hyponatremia; Translations: [Hypo-osmolality and hyponatremia] Episodic Genitourinary symptoms and ill-defined conditions (20 sources) Blood in urine; Translations: [Hematuria, unspecified] 03-15-2021 Episodic Heart valve disorders (20 sources) Aortic stenosis, non-rheumatic ; Translations: [Nonrheumatic aortic (valve) stenosis] Onset: 02-14-2013 Chronic Comment on above: 04/25/2024 29mm Esvin d Maria Isabel S3 Ultra ValveDr. Santillan, [facility] Moderately severe pe r echo 06/15/[address] Ontiveros [facility]: NADEGE 0.84 Mild 1+ per echo 05/26 07/12 @ [facility] Hyperplasia of prostate (3 sources) Benign prostatic hypertrophy with outflow obstruction; Translations: [Benign prostatic hyperplasia with lower urinary tract symptoms] Onset: 07-02-2006 04-16-2011 Chronic Hypertension with complications and secondary hypertension (19 sources) Hypertensive urgency ; Translations: [Hypertensive urgency] 07-06-2019 Chronic Malaise and fatigue (19 sources) Asthenia; Translations: [Weakness] 04-05-2018 Episodic Comment on above: For the past few day s. Nonspecific chest pain (20 sources) Tight chest; Translations: [Other chest pain] Episodic Comment on above: He has been having c hest pain now for the past 2 weeks. 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] Onset: 02-22-2025 Episodic Other bone disease and musculoskeletal deformities (19 sources) Somatic dysfunction of rib; Translations: [Segmental and somatic dysfunction of rib cage] 08-13-2017 Episodic Other circulatory disease (19 sources) Low blood pressure; Translations: [Hypotension, unspecified] 09-24-2021 Episodic Other circulatory disease (4 sources) Hypotension, unspecified; Translations: [Hypotension, unspecified] Episodic Other circulatory disease (4 sources) H/O: heart disorder; Translations: [Personal history of other diseases of the circulatory system] 01-27-2024 Episodic Other connective tissue disease (19 sources) History of revision of right total knee arthroplasty; Translations: [Presence of right artificial knee joint] 07-11-2021 Chronic Other connective tissue disease (3 sources) Presence of right artificial knee joint; Translations: [Knee joint replacement] Chronic Other ear and sense organ disorders (19 sources) Hearing loss of left ear; Translations: [Unspecified hearing loss, left ear] 07-06-2019 Chronic Comment on above: Since childhood Other injuries and conditions due to external causes (19 sources) Wound hemorrhage; Translations: [Other injury of unspecified body region, initial encounter] 02-23-2021 Episodic Michelle-; endo-; and myocarditis; cardiomyopathy (except that caused by tuberculosis or sexually transmitted disease) (20 sources) Pericarditis; Translations: [Disease of pericardium, unspecified] Onset: 04-23-2017 04-27-2017 Episodic Pleurisy; pneumothorax; pulmonary collapse (19 sources) Atelectasis; Translations: [Atelectasis] 07-06-2019 Episodic Residual codes; unclassified (2 sources) Obstructive sleep apnea syndrome; Translations: [Obstructive sleep apnea (adult) (pediatric)] Chronic Residual codes; unclassified (1 source) Obstructive sleep apnea (adult) (pediatric); Translations: [Obstructive sleep apnea (adult)(pediatric)] Chronic Residual codes; unclassified (19 sources) FH: Cardiovascular disease; Translations: [Family history of ischemic heart disease and other diseases of the circulatory system] 08-13-2017 Episodic Thyroid disorders (20 sources) Hypothyroidism; Translations: [Hypothyroidism, unspecified] Onset: 11-19-2024 Chronic Unclassified (1 source) Unknown / UNK(Unknown) Onset: 06-15-2017 Urinary tract infections (20 sources) Urinary tract infectious disease; Translations: [Urinary tract infection, site not specified] 11-15-2021 Episodic Past or Other Problems Problem Classification Problem Date Documented Date Episodic/Chronic Abdominal hernia (3 sources) Right inguinal hernia ; Translations: [Unilateral inguinal hernia, without obstruction or gangrene, not specified as recurrent] Onset: 02-25-2011 04-16-2011 Episodic Calculus of urinary tract (3 sources) Kidney stone; Translations: [Calculus of kidney] Onset: 05-30-2009 04-16-2011 Episodic Other hematologic conditions (3 sources) Raised cardiac enzyme or marker; Translations: [Other specified abnormalities of plasma proteins] Onset: 04-26-2017 04-26-2017 Episodic Other screening for suspected conditions (not mental disorders or infectious disease) (20 sources) D-dimer above reference range; Translations: [Other specified abnormal findings of blood chemistry] Onset: 07-02-2006 04-16-2011 Episodic Comment on above: CTA of the chest tod ay was negative and patient recently had a total knee arthroplasty on the left. Other upper respiratory disease (3 sources) Mediastinal mass; Translations: [Other diseases of mediastinum, not elsewhere classified] Onset: 04-23-2017 05-01-2017 Episodic Residual codes; unclassified (19 sources) Acquired absence of other organs; Translations: [History of thymectomy] Onset: 04-23-2017 03-15-2021 Episodic Comment on above: Done @ [facility] per Dr. Trace Manriquez for anterior mediastinal mass, malignant Residual codes; unclassified (19 sources) History of cardiac catheterization; Translations: [Other specified postprocedural states] Onset: 11-12-2018 07-06-2019 Episodic Comment on above: Normal LV size, wall motion,and systolic function; Perserved Left Ventricular systolic function with normal EDP; LVEF: by LV gram 65 %; Single vessel CAD of the mid LAD; Non obstructive coronary arteries. Aortic Valve Stenosis- Mild; Right heart pressures - Normal; Aortic Valve Insufficiency MildRECOMMENDATIONS: Staged percutaneous intervention vs. Surgical Intervention; DEVEN in 1-2 week to eval for AVR vs medical management followed by PCI to LAD. Restart lovenox on 11/14/2108.Start plavix 75mg po daily. Manual sheath removal. Residual codes; unclassified (3 sources) Device in situ; Translations: [Other specified health status] Onset: 04-26-2017 04-27-2017 Episodic Unclassified (1 source) Follow Up Onset: 06-15-2017 Unclassified (2 sources) Aortic stenosis, moderate 04-12-2024 Unclassified (4 sources) Aortic stenosis, severe 06-02-2024 Results Test Name Value Interpretation Reference Range Facility 36on 03-31-[address] [place] [address] call spouse tomorrow and let her know echo looked OK. Mild leakage around valve. Dr. Ortiz can continue to follow. PC to patient spouse. Reviewed JIG GRINDER recommendations. Patient spouse verbalized understanding. Normal [facility] Office Visiton 03-30-2025 Follow-up visit [id number] Hang Keenan 1945 M Date Provider Department Center 03/30/2025 [id number] CURIEL [facility] [address] No family history on file Level of Service:08350 AL OFFICE/OUTPATIENT ESTABLISHED MOD MDM 30 MIN Reason for Visit and Comments: Cardiac Valve Problem [1334] Normal [facility] Progress Noteon 03-30-2025 Progress Note [facility] [place] [address] [facility] [address] Dept: [phone] Dept Visit type: Established : 1945 Reason for Visit: Cardiac Valve Problem Assessment and Plan 1. S/P TAVR (transcatheter aortic valve replacement) - ECG 12 lead - CLINIC PERFORMED Echo today, continue warfarin (indication PAF), skilled nursing SBE prophylaxis 2. Paroxysmal atrial fibrillation (HCC) In SR today, on amio, stroke prophylaxis with warfarin, mgt Dr. Ortiz. 3. Severe aortic stenosis Resolved, post TAVR 4. Essential hypertension BP elevated today but at goal for home BP monitoring. Will continue amlodipine 5. Coronary artery disease involving newtok coronary artery of new[place] heart without angina pectoris Remote LAD stents. Intol statins. Consider non statin therapy. Will defer to Dr. Ortiz. LDL chol 139-- 12/[address] Ortiz, will send echo Subjective Mr Keenan is an 78 yr old male with a PMH of BPH, HPL, hypothyroidism, malignant thymoma s/p resection, carotid dissection, SERGO, AF on Coumadin CAD- s/p remote LAD stents; NSTEMI and PCI of major diagonal branch 12/2023, and severe aortic stenosis. He is s/p TAVR with 29 mm Maria Isabel S3 valve on 04/25/2024. He had worsening first degree av block post procedure requiring reduction of beta shawn, Norvasc was added for HTN. He is here today for one year follow up appt and echocardiogram. Since our last visit he is no longer taking Coreg, BP has been controlled at home on Norvasc. He denies any chest pain, dyspnea, palpitations, syncope. 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 He is troubled with shoulder pain and anticipating surgery. Allergies[1] Current Medications[2] Medical History[3] Social History Tobacco Use Smoking status: Never Smokeless tobacco: Never Substance Use Topics Alcohol use: Not on file Surgical History[4] Family History[5] Objective Vitals: 03/30/25 1235 03/30/25 1245 BP: (!) 156/82 (!) 150/90 BP Location: Left arm Left arm Patient Position: Sitting Sitting BP Cuff Size: Adult Adult Pulse: 54 SpO2: 95% Weight: 144 lb 6.4 oz (65.5 kg) Height: 5' 4 (1.626 m) Physical Exam Constitutional: Appearance: Normal appearance. HENT: Head: Normocephalic and atraumatic. Nose: Nose normal. Eyes: Conjunctiva/sclera: Conjunctivae normal. Pupils: Pupils are equal, round, and reactive to light. Cardiovascular: Rate and Rhythm: Normal rate and regular rhythm. Pulmonary: Effort: Pulmonary effort is normal. Breath sounds: Normal breath sounds. Abdominal: General: Bowel sounds are normal. Palpations: Abdomen is soft. Musculoskeletal: General: Normal range of motion. Cervical back: Normal range of motion and neck supple. Skin: General: Skin is warm and dry. Neurological: General: No focal deficit present. Mental Status: He is alert and oriented to person, place, and time. Psychiatric: Mood and Affect: Mood normal. Thought Content: Thought content normal. 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 Continue ASA 81 mg until INR above 2.0, Disp: , Rfl: cholecalciferol (Vitamin D3) 25 MCG (1000 UT) tablet, Take 1,000 Units by mouth daily., Disp: , Rfl: cyanocobalamin (Vitamin B-12) 1000 MCG tablet, Take 1,000 mcg by mouth daily., Disp: , Rfl: finasteride (Proscar) 5 MG tablet, Take 5 mg by mouth daily. Do not crush, chew, or split., Disp: , Rfl: levothyroxine (Synthroid, Levoxyl) 100 MCG tablet, Take 100 mcg by mouth every morning (before breakfast)., Disp: , Rfl: Multiple Vitamin (multivitamin) capsule, Take 1 capsule by mouth daily., Disp: , Rfl: nitroglycerin (Nitrostat) 0.4 MG SL tablet, Place 0.4 mg under the tongue every 5 minutes as needed for chest pain., Disp: , Rfl: warfarin (Coumadin) 5 MG tablet, Take 5 mg by mouth daily. Take as directed per [facility], Disp: , Rfl: [3] Past Medical History: Diagnosis Date Atelectasis BPH (benign prostatic hyperplasia) Carotid dissection, bilateral (CMS/HCC) (HCC) Chest pain Hearing loss of left ear He (more content not included)... Normal [facility] TRANSTHORACIC ECHOCARDIOGRAM (TTE) COMPLETEon 03-30-2025 TRANSTHORACIC ECHOCARDIOGRAM (TTE) COMPLETE This is a summary report. The complete report is available in the patient's medical record. If you cannot access the medical record, please contact the sending organization for a detailed fax or copy. ? Left?Ventricle: Left ventricle size is normal. Normal wall thickness. Normal left ventricular systolic function. EF by 2D Simpsons Biplane is 60%. Global longitudinal strain is -17.8%. Normal wall motion. ? Right?Ventricle: Right ventricle is mildly dilated. Normal systolic function. ? Aortic?Valve: Eisenberg Maria Isabel 3 Ultra bioprosthetic aortic valve with a size of 29 mm. AV mean gradient is 8 mmHg. Mild to moderate (1-2+) paravalvular regurgitation. Normal prosthetic gradient. AV mean gradient is 8 mmHg. AV peak gradient is 16 mmHg. AV peak velocity is 2.0 m/s. AV AT is 57.09 ms. LVOT:AV VTI Index is 0.40. AV area by continuity VTI is 1.0 cm2. ? Left?Atrium: Left atrium is moderately dilated. LA Vol Index A/L is 45 mL/m2. ? Mitral Valve: Valve structure is normal. Moderate annular calcification (posterior). Mild (1+) regurgitation. No stenosis noted. ? Tricuspid Valve: Valve structure is normal. Mild (1+) regurgitation. Normal RVSP. RVSP is 23 mmHg. Abnormal [facility] US Heart TransthoracicOrdere d By: Nafisa Castellanos on 03-30-2025 Aortic Arch 2.6 cm [facility] [employer] Work Phone: [phone] Aortic Sinus Valsalva 3.6 cm Sum ri [employer] Work Phone: Aortic Sinus Valsalva Index 2.12 cm/m2 [facility] [employer] Work Phone: Aortic valve Mean systole pressure gradient by US.doppler derived full Bernoulli 8 mmHg [facility] Work Phone: Aortic valve Orifice area by US 2.5 cm2 [facility] [employer] Work Phone: Aortic valve Peak systolic flow by US.doppler 1.3 m/s [facility] [employer] Work Phone: AR Max Velocity PISA 5.1 m/s [facility] [employer] Work Phone: AR PHT 588.1 ms [facility] [employer] Work Phone: Ascending Aorta 3.7 cm [facility] Work Phone: Ascending Aorta Index 2.18 cm/m2 Sum ri [employer] Work Phone: AV Area by Peak Velocity 1 cm2 [facility] Work Phone: AV Area by VTI 1 cm2 [facility] Work Phone: AV AT 57.09 ms [facility] Work Phone: AV Peak Gradient 16 mmHg [facility] Work Phone: AV Peak Velocity 2 m/s [facility] Work Phone: AV Velocity Ratio 0.4 [facility] Work Phone: AV VTI 49.3 cm [facility] Work Phone: NADEGE/BSA Peak Velocity 0.6 cm2/m2 Sum [facility] Work Phone: NADEGE/BSA VTI 0.6 cm2/m2 [facility] [employer] Work Phone: E/E' Lateral 16.6 [facility] [employer] Phone: E/E' Ratio (Averaged) 16.6 [facility] [employer] Phone: E/E' Septal 16.6 [facility] [employer] Phone: Est. RA Pressure 3 mmHg [facility] [employer] Phone: Fractional Shortening 2D 31 % 28 - 44 % [facility] [employer] Phone: Global Longitudinal Strain -17.8 % [facility] [employer] Phone: Interpretation and review of laboratory results Abnormal [facility] [employer] Phone: IVC Diameter 1.5 cm [facility] [employer] Phone: IVSd 0.9 cm 0.6 - 1.0 cm [facility] [employer] Phone: LA Diameter 3.9 cm [facility] [employer] Phone: LA Size Index 2.29 cm/m2 [facility] Work Phone: LA Volume 2C 102 mL Abnormal 18 - 58 mL [facility] [employer] Phone: LA Volume 4C 43 mL 18 - 58 mL [facility] [employer] Phone: LA Volume A/L 76 mL [facility] [employer] Phone: LA Volume BP 69 mL Abnormal 18 - 58 mL [facility] [employer] Phone: LA Volume Index 2C 60 mL/m2 Abnormal 16 - 34 mL/m2 [facility] [employer] Phone: LA Volume Index 4C 25 mL/m2 16 - 34 mL/m2 [facility] [employer] Phone: LA Volume Index A/L 45 mL/m2 16 - 34 mL/m2 [facility] [employer] Phone: LA Volume Index BP 41 ml/m2 Abnormal 16 - 34 ml/m2 [facility] [employer] Phone: Left ventricular Ejection fraction by US.2D+Calculated by biplane method of disks 60 % 55 - 100 % [facility] [employer] [facility] Work Phone: LV E' Lateral Velocity 5 cm/s [facility] Work Phone: LV E' Septal Velocity 5 cm/s [facility] [employer] Work Phone: LV EDV A2C 98 mL [facility] [employer] Work Phone: LV EDV A4C 122 mL [facility] [employer] Work Phone: LV EDV BP 111 mL 67 - 155 mL [facility] [employer] Work Phone: LV EDV Index A2C 58 mL/m2 [facility] Work Phone: LV EDV Index A4C 72 mL/m2 [facility] Work Phone: LV EDV Index BP 65 mL/m2 [facility] Work Phone: LV Ejection Fraction A2C 58 % [facility] [employer] Work Phone: LV Ejection Fraction A4C 62 % [facility] [employer] Work Phone: LV ESV A2C 42 mL [facility] [employer] Work Phone: LV ESV A4C 46 mL [facility] [employer] Work Phone: LV ESV BP 44 mL 22 - 58 mL [facility] [employer] Work Phone: LV ESV Index A2C 25 mL/m2 [facility] Work Phone: LV ESV Index A4C 27 mL/m2 [facility] Work Phone: LV ESV Index BP 26 mL/m2 [facility] Work Phone: LV Mass 2D 147.8 g 88 - 224 g [facility] [employer] Work Phone: LV Mass 2D Index 86.9 g/m2 49 - 115 g/m2 [facility] [employer] Work Phone: LV RWT Ratio 0.38 [facility] [employer] Work Phone: LVIDd 4.8 cm 4.2 - 5.9 cm [facility] [employer] Work Phone: LVIDd Index 2.82 cm/m2 [facility] [employer] Work Phone: LVIDs 3.3 cm [facility] [employer] Work Phone: LVIDs Index 1.94 cm/m2 [facility] [employer] Work Phone: LVOT Cardiac Output 2.5 liter/minute [facility] Work Phone: LVOT Diameter 1.8 cm [facility] [employer] Work Phone: LVOT Mean Gradient 1 mmHg [facility] [employer] Work Phone: LVOT Peak Gradient 3 mmHg [facility] [employer] Work Phone: LVOT Peak Velocity 0.8 m/s [facility] [employer] Work Phone: LVOT Stroke Volume Index 29.8 mL/m2 [facility] [employer] Work Phone: LVOT SV 50.6 ml [facility] [employer] Work Phone: LVOT VTI 19.9 cm [facility] [employer] Work Phone: LVOT:AV VTI Index 0.4 [facility] [employer] Work Phone: LVPWd 0.9 cm 0.6 - 1.0 cm [facility] [employer] Work Phone: MV A Velocity 0.98 m/s [facility] [employer] Work Phone: MV E Velocity 0.83 m/s [facility] [employer] Work Phone: MV E Wave Deceleration Time 282.7 ms [facility] [employer] Work Phone: MV E/A 0.85 [facility] [employer] Work Phone: Pulmonary Artery EDP 13 mmHg [facility] [employer] Work Phone: Pulmonary Artery EDP 4 mmHg [facility] Work Phone: RA Area 4C 16.9 cm2 [facility] [employer] Work Phone: RV Basal Dimension 4.1 cm [facility] [employer] Work Phone: RV Free Wall Peak S' 11 cm/s [facility] [employer] Work Phone: RV Longitudinal Dimension 7 cm [facility] [employer] Work Phone: RV Mid Dimension 2.3 cm [facility]mon [facility] Work Phone: RVSP 23 mmHg [facility] Work Phone: [phone] TAPSE 2.2 cm 1.7 cm [facility] Work Phone: [phone] TR Max Velocity 2.23 m/s Gabriel Rodrigues lt Work Phone: [phone] TR Peak Gradient 20 mmHg [facility] Work Phone: [phone] [facility] Work Phone: Heart Transthoracicon Left Ventricle: Left ventricle size is normal. Normal wall thickness. Normal left ventricular systolic function. EF by 2D Simpsons Biplane is 60%. Global longitudinal strain is -17.8%. Normal wall motion. Right Ventricle: Right ventricle is mildly dilated. Normal systolic function. Aortic Valve: Eisenberg Maria Isabel 3 Ultra bioprosthetic aortic valve with a size of 29 mm. AV mean gradient is 8 mmHg. Mild to moderate (1-2+) paravalvular regurgitation. Normal prosthetic gradient. AV mean gradient is 8 mmHg. AV peak gradient is 16 mmHg. AV peak velocity is 2.0 m/s. AV AT is 57.09 ms. LVOT:AV VTI Index is 0.40. AV area by continuity VTI is 1.0 cm2. Left Atrium: Left atrium is moderately dilated. LA Vol Index A/L is 45 mL/m2. Mitral Valve: Valve structure is normal. Moderate annular calcification (posterior). Mild (1+) regurgitation. No stenosis noted. Tricuspid Valve: Valve structure is normal. Mild (1+) regurgitation. Normal RVSP. RVSP is 23 mmHg. Left Ventricle Left ventricle size is normal. Normal wall thickness. Normal left ventricular systolic function. EF by 2D Simpsons Biplane is 60%. Global longitudinal strain is -17.8%. Normal wall motion. Diastolic dysfunction present with normal LVEF. Right Ventricle Right ventricle is mildly dilated. Normal systolic function. Left Atrium Left atrium is moderately dilated. LA Vol Index A/L is 45 mL/m2. Right Atrium Right atrium size is normal. IVC/SVC IVC diameter is normal and decreases greater than 50% during inspiration; therefore the estimated right atrial pressure is normal (~3 mmHg). Mitral Valve Valve structure is normal. Moderate annular calcification (posterior). Mild (1+) regurgitation. No stenosis noted. Tricuspid Valve Valve structure is normal. Mild (1+) regurgitation. Normal RVSP. RVSP is 23 mmHg. Aortic Valve Eisenberg Maria Isabel 3 Ultra bioprosthetic aortic valve with a size of 29 mm. AV mean gradient is 8 mmHg. Mild to moderate (1-2+) paravalvular regurgitation. Normal prosthetic gradient. AV mean gradient is 8 mmHg. AV peak gradient is 16 mmHg. AV peak velocity is 2.0 m/s. AV AT is 57.09 ms. LVOT:AV VTI Index is 0.40. AV area by continuity VTI is 1.0 cm2. Pulmonic Valve Valve structure is normal. Mild (1+) regurgitation. Ascending Aorta Normal sized sinuses of Valsalva and ascending aorta. Pericardium No pericardial effusion. Septum No interatrial shunt visualized on color Doppler. Pulmonary Artery Normal pulmonary arteries. Study Details Image quality: adequate. Additional technique includes myocardial strain. Heart rate: 52 bpm. Blood pressure: 141/87 mmHg. The underlying ECG rhythm was sinus bradycardia. Cardiac history: prosthetic valve. Technical qualifiers: Technically difficult study due to patient's body habitus and technically difficult study due to low parasternal window. No contrast was given. Comparison Study There is a prior study available for comparison. Prior study date: 06/02/2024. CV CPACS International normalized rat io (INR) calculationOrdered By: Олег Ortiz on 02-06-2025 INR Coag (Bld) [Relative time] 2.5 {INR} [facility] Prothrombin Time w/INRon INR Coag (PPP) [Relative time] 2.5 {INR} Normal [facility] Comment on above: Order Comment: Comme nts: STANDING ORDER Performed By: #### L 300.3900 #### [facility] [address] [place], [address] PT Coag (PPP) [Time] 27.8 s High 11.7-14.9 [facility] Comment on above: Order Comment: Sandra nts: STANDING ORDER Performed By: #### L 300.3900 #### [facility] [address] [place], [address] Prothrombin timeOrdered By: Олег Ortiz on 02-06-2025 PT Coag (PPP) [Time] 27.8 s High 11.7-14.9 [facility] Cardiology Visit Reporton Cardiology Visit Report [facility] [address] [place] [address] OFFICE VISIT Date of Service: 01/19/25 MR#: [id number] Acct: [id number] Name: HANG KEENAN Rep #: [id number] : 1945 Provider: Dr. Олег koenig MD Age/Sex: 79/M Location: [facility] Status: Signed HPI HPI History of Present Illness Details: Patient is a pleasant 79-year-old white male that comes in with his today for monitor of his cardiovascular status. 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 Patient has a history of critical aortic stenosis and underwent TAVR in April 2024 at [facility] by Dr. Santillan. Prior to that in December 2023 he received an LAD diagonal stenting procedure in anticipation of his TAVR. He had to receive a new restenosis treatment for his diagonal stent with a second diagonal stent January 20, 2024. The LAD stent was widely patent. The patient was evaluated post TAVR at [facility] with an echocardiogram June 02, 2024 LV size was normal he had normal LV function EF of 67% the right ventricle was normal he had a bioprosthetic aortic valve [address] with an aortic valve mean gradient of 11. This was considered normal for this prosthetic valve. He had 1+ perivalvular regurgitation. The tricuspid valve was normal with right trickle systolic pressure of 25. Left atrium was mildly dilated. 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 He has seen Dr. Vazquez of orthopedics. The patient also has a history of paroxysmal atrial fibrillation he is on Coumadin and amiodarone he had a mobile cardiac telemetry done in April 2024 which showed no evidence of atrial fibrillation. He denies any recurrence of any atrial fibs. The patient also has a history of hypertension which is become well controlled on his current medical therapy in fact he was down in the 90 systolic range on a couple of readings that he brought in today. The patient also has a history of hyperlipidemia he is intolerant to all statins. The patient has been practicing SBE prophylaxis. The patient denies any TIA or CVA type symptoms he denies any lower extremity edema he denies any PND orthopnea or any chest pains. 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 Required: No Accompanied by: Is patient in pain?: No Allergies cefuroxime Allergy (Intermediate, Verified 01/19/25 09:48) Rash levofloxacin (From Levaquin) Adverse Reaction (Severe, Verified 01/19/25 09:48) achiness rosuvastatin (From Crestor) Adverse Reaction (Severe, Verified 01/19/25 09:48) severe myalgias lisinopril Adverse Reaction (Intermediate, Verified 01/19/25 09:48) didn't control bp well, labile cephalexin Adverse Reaction (Verified 01/19/25 09:48) Pain in joints Medications ???Medication ???Instructions ???Recorded ???Confirmed ???Type lysine 500 mg tablet 500 mg PO DAILY supplement 0 01/19/25 History finasteride 5 mg tablet 5 mg PO DAILY #90 tabs 11/21/19 Rx cholecalciferol (vitamin D3) 25 25 mcg PO DAILY vitamin 06/27/21 0 01/19/25 History mcg (1,000 unit) tablet cyanocobalamin (vitamin B-12) 1,000 mcg PO DAILY vitamin 2 01/19/25 History 1,000 mcg tablet (Vitamin B-12) multivitamin 1 tab PO DAILY vitamin 07/31/21 History acetaminophen 500 mg tablet 1,000 mg PO TID PRN Pain 10/09/21 01/19/25 History levothyroxine 100 mcg capsule 100 mcg PO DAILY thyroid 11/05/23 01/19/25 History nitroglycerin 0.4 mg sublingual 0.4 mg sublingual Q5-15M PRN chest 02/01/24 01/19/25 Rx tablet (Nitrostat) pain #25 tabs amiodarone 200 mg tablet 100 mg (1/2 x 200 mg) PO DAILY #45 02/17/24 01/19/25 Rx TABLETS warfarin 5 mg tablet 5 mg PO SUTUTHSA@1700 Please give 04/27/24 01/19/25 Rx extra pills for dose changes. #90 tabs warfarin 7.5 mg tablet 7.5 mg PO MOWEFR@1700 Please give 04/27/24 01/19/25 Rx extra pills for dose changes. #45 tabs amlodipine 10 mg tablet 10 mg PO QDAY 01/19/25 History oxybutynin chloride 5 mg 5 mg PO QDAY 01/19/25 01/19/25 His tory tablet,extended release 24 hr Ejection fraction %: 67 Have you fallen in the past year?: Yes PFSH Medical History (Updated 01/19/25 @ 10:[address] Олег Ortiz MD) Essential hypertension History of transcatheter aortic valve replacement (TAVR) Atherosclerotic heart disease of [place] coronary a (more content not included)... Normal [facility] International normalized rat io (INR) calculationOrdered By: Kaila Toribio on 12-27-2024 INR Coag (Bld) [Relative time] 2.8 {INR} [facility] Prothrombin Time w/INRon INR Coag (PPP) [Relative time] 2.8 {INR} Normal [facility] Comment on above: Performed By: #### L 300.3900 #### [facility] [address] [place], [place], [id number] PT Coag (PPP) [Time] 29.7 s High 11.7-14.9 [facility] Comment on above: Performed By: #### L 300.3900 #### [facility] [address] [place], [address] Prothrombin timeOrdered By: Kaila Toribio on 12-27-2024 PT Coag (PPP) [Time] 29.7 s High 11.7-14.9 [facility] Absolute lymphocyte countOrd ered By: Ankur Bony on 11-15-2024 Lymphocytes Auto (Unsp spec) [#/Vol] 1.12 10*3/uL 0.83-4.51 [facility] Absolute neutrophil countOrd ered By: [facility] Neutrophils (Bld) [#/Vol] 6.8 10*3/uL 2.0-7.7 [facility] Anion gap in Serum or Plasma Ordered By: Ankurtiff Lovett on 11-15-2024 Anion gap [Moles/Vol] 13 mmol/L 5-15 [facility] Automated lymphocyte count a s percentage of total leukocytesOrdered By: Ankur Bony on 11-15-2024 Lymphocytes/100 WBC Auto (Unsp spec) 11.9 % Low 19-41 [facility] BUN/creatinine ratioOrdered By: [facility] on 11-15-2024 Urea nitrogen/Creatinine [Mass ratio] 25.3 mg/mg High 10-20 [facility] Basophil percentageOrdered B y: Ankur Lovett on 11-15-2024 Basophils/100 WBC (Bld) 1.0 % 0-1 [facility] Bilirubin, totalOrdered By: Ankurtiff Lovett on 11-15-2024 Bilirubin [Mass/Vol] 0.79 mg/dL 0.00-1.30 [facility] CBC W/Diff, Automatedon 10-24 Absolute Lymph 1.12 X10 3/uL Normal 0.83-4.51 [facility] Comment on above: Performed By: #### L 500.4100, L100.0100, L501.9520, L503.0106, L501.9940, L500.4050, L506.1001, L506.0400, L300.3900 #### [facility] [address] [place], [address] Absolute Neut 6.8 X10 3/uL Normal 2.0-7.7 [facility] Comment on above: Performed By: #### L 500.4100, L100.0100, L501.9520, L503.0106, L501.9940, L500.4050, L506.1001, L506.0400, L300.3900 #### [facility] [address] [place], [address] Basophils/100 WBC (Bld) 1.0 % Normal 0-1 [facility] Comment on above: Performed By: #### L 500.4100, L100.0100, L501.9520, L503.0106, L501.9940, L500.4050, L506.1001, L506.0400, L300.3900 #### [facility] [address] [facility] [place], [address] Eosinophils/100 WBC (Bld) 4.0 % Normal 0-5 [facility] Comment on above: Performed By: #### L 500.4100, L100.0100, L501.9520, L503.0106, L501.9940, L500.4050, L506.1001, L506.0400, L300.3900 #### [facility] [address] [facility] [place], [address] Erythrocyte distribution width (RBC) [Ratio] 15.8 % High 11.6-14.6 [facility] Comment on above: Performed By: #### L 500.4100, L100.0100, L501.9520, L503.0106, L501.9940, L500.4050, L506.1001, L506.0400, L300.3900 #### [facility] [address] [place], [address] Hematocrit (Bld) [Volume fraction] 49.0 % Normal 40-54 [facility] Comment on above: Performed By: #### L 500.4100, L100.0100, L501.9520, L503.0106, L501.9940, L500.4050, L506.1001, L506.0400, L300.3900 #### [facility] [address] [place], [address] Hemoglobin (Bld) [Mass/Vol] 16.2 g/dL Normal 13.0-16.5 [facility] Comment on above: Performed By: #### L 500.4100, L100.0100, L501.9520, L503.0106, L501.9940, L500.4050, L506.1001, L506.0400, L300.3900 #### [facility] [address] [place], [address] IG% 0.500 Normal 0.0-0.9 [facility] Comment on above: Result Comment: IG% - Immature Granulocytes (promyelocytes, myelocytes and metamyelocytes) > 1% indicates that a LEFT SHIFT is Present. Performed By: #### L 500.4100, L100.0100, L501.9520, L503.0106, L501.9940, L500.4050, L506.1001, L506.0400, L300.3900 #### [facility] [address] [place], [address] Lymphocytes/100 WBC (Bld) 11.9 % Low 19-41 [facility] Comment on above: Performed By: #### L 500.4100, L100.0100, L501.9520, L503.0106, L501.9940, L500.4050, L506.1001, L506.0400, L300.3900 #### [facility] [address] [place], [address] MCH (RBC) [Entitic mass] 31.5 pg Normal 27.0-32.0 [facility] Comment on above: Performed By: #### L 500.4100, L100.0100, L501.9520, L503.0106, L501.9940, L500.4050, L506.1001, L506.0400, L300.3900 #### [facility] [address] [place], [address] MCHC (RBC) [Mass/Vol] 33.1 g/dL Normal 32-36 [facility] Comment on above: Performed By: #### L 500.4100, L100.0100, L501.9520, L503.0106, L501.9940, L500.4050, L506.1001, L506.0400, L300.3900 #### [facility] [address] [place], [address] MCV (RBC) [Entitic vol] 95.3 fL High 80-94 [facility] Comment on above: Performed By: #### L 500.4100, L100.0100, L501.9520, L503.0106, L501.9940, L500.4050, L506.1001, L506.0400, L300.3900 #### [facility] [address] [place], [address] Monocytes/100 WBC (Bld) 10.3 % High 0-10 [facility] Comment on above: Performed By: #### L 500.4100, L100.0100, L501.9520, L503.0106, L501.9940, L500.4050, L506.1001, L506.0400, L300.3900 #### [facility] [address] [place], [address] Neutrophils/100 WBC (Bld) 72.3 % High 47-70 [facility] Comment on above: Performed By: #### L 500.4100, L100.0100, L501.9520, L503.0106, L501.9940, L500.4050, L506.1001, L506.0400, L300.3900 #### [facility] [address] [place], [address] Nucleated RBC (Bld) [#/Vol] 0 10*3/uL Normal 0-5 [facility] Comment on above: Performed By: #### L 500.4100, L100.0100, L501.9520, L503.0106, L501.9940, L500.4050, L506.1001, L506.0400, L300.3900 #### [facility] [address] [place], [address] Platelet mean volume (Bld) [Entitic vol] 9.5 fL Normal 6.2-12.0 [facility] Comment on above: Performed By: #### L 500.4100, L100.0100, L501.9520, L503.0106, L501.9940, L500.4050, L506.1001, L506.0400, L300.3900 #### [facility] [address] [place], [address] Platelets (Bld) [#/Vol] 406 10*3/uL Normal 150-450 [facility] Comment on above: Performed By: #### L 500.4100, L100.0100, L501.9520, L503.0106, L501.9940, L500.4050, L506.1001, L506.0400, L300.3900 #### [facility] [address] [place], [address] RBC (Bld) [#/Vol] 5.14 10*6/uL Normal 4.6-6.2 [facility] Comment on above: Performed By: #### L 500.4100, L100.0100, L501.9520, L503.0106, L501.9940, L500.4050, L506.1001, L506.0400, L300.3900 #### [facility] [address] [place], [address] RDW SD 55.8 fl High 35.1-43.9 [facility] Comment on above: Performed By: #### L 500.4100, L100.0100, L501.9520, L503.0106, L501.9940, L500.4050, L506.1001, L506.0400, L300.3900 #### [facility] [address] [place], [place], [id number] WBC (Bld) [#/Vol] 9.4 10*3/uL Normal 4.4-11.0 [facility] Comment on above: Performed By: #### L 500.4100, L100.0100, L501.9520, L503.0106, L501.9940, L500.4050, L506.1001, L506.0400, L300.3900 #### [facility] [address] [place], [place], [id number] Calculated very low density lipoprotein (VLDL) cholesterol measurementOrdered By: Ankur Lovett on 11-15-2024 Calculated very low density lipoprotein (VLDL) cholesterol measurement 22 mg/dL 5-40 [facility] Carbon dioxide, total [Moles /volume] in Central venous bloodOrdered By: Ankur Lovett on 11-15-2024 CO2 [Moles/Vol] 20.3 mmol/L Low 21.0-32.0 [facility] Chloride assayOrdered By: Ra kimmy Lovett on 11-15-2024 Chloride [Moles/Vol] 106 mmol/L 98-108 [facility] Comprehensive Metabolic Prof ilon 11-15-2024 Albumin [Mass/Vol] 4.5 g/dL Normal 3.4-4.8 [facility] Comment on above: Order Comment: HEATHER VAZQUEZ FOR RESULTS Performed By: #### L 500.4100, L100.0100, L501.9520, L503.0106, L501.9940, L500.4050, L506.1001, L506.0400, L300.3900 #### [facility] [address] [place], [address] Albumin/Globulin [Mass ratio] 1.3 {ratio} Normal 0.9-2.4 [facility] Comment on above: Order Comment: HEATHER VAZQUEZ FOR RESULTS Performed By: #### L 500.4100, L100.0100, L501.9520, L503.0106, L501.9940, L500.4050, L506.1001, L506.0400, L300.3900 #### [facility] [address] [place], [place], [id number] ALK PHOS 88 U/L Normal 40-129 [facility] Comment on above: Order Comment: HEATHER VAZQUEZ FOR RESULTS Performed By: #### L 500.4100, L100.0100, L501.9520, L503.0106, L501.9940, L500.4050, L506.1001, L506.0400, L300.3900 #### [facility] [address] [place], [place], [id number] ALT [Catalytic activity/Vol] 12 U/L Normal <=46 [facility] Comment on above: Order Comment: HEATHER VAZQUEZ FOR RESULTS Performed By: #### L 500.4100, L100.0100, L501.9520, L503.0106, L501.9940, L500.4050, L506.1001, L506.0400, L300.3900 #### [facility] [address] [place], [address] AST [Catalytic activity/Vol] 22 U/L Normal <=37 [facility] Comment on above: Order Comment: HEATHER VAZQUEZ FOR RESULTS Performed By: #### L 500.4100, L100.0100, L501.9520, L503.0106, L501.9940, L500.4050, L506.1001, L506.0400, L300.3900 #### [facility] [address] [place], [address] Bilirubin [Mass/Vol] 0.79 mg/dL Normal 0.00-1.30 [facility] Comment on above: Order Comment: HEATHER VAZQUEZ FOR RESULTS Performed By: #### L 500.4100, L100.0100, L501.9520, L503.0106, L501.9940, L500.4050, L506.1001, L506.0400, L300.3900 #### [facility] [address] [place], [address] BUN/CRE 25.3 RATIO High 10-20 [facility] Comment on above: Order Comment: HEATHER VAZQUEZ FOR RESULTS Performed By: #### L 500.4100, L100.0100, L501.9520, L503.0106, L501.9940, L500.4050, L506.1001, L506.0400, L300.3900 #### [facility] [address] [place], [address] Calcium [Mass/Vol] 9.6 mg/dL Normal 7.6-11.0 [facility] Comment on above: Order Comment: HEATHER VAZQUEZ FOR RESULTS Performed By: #### L 500.4100, L100.0100, L501.9520, L503.0106, L501.9940, L500.4050, L506.1001, L506.0400, L300.3900 #### [facility] [address] [place], [address] Chloride [Moles/Vol] 106 mmol/L Normal 98-108 [facility] Comment on above: Order Comment: HEATHER VAZQUEZ FOR RESULTS Performed By: #### L 500.4100, L100.0100, L501.9520, L503.0106, L501.9940, L500.4050, L506.1001, L506.0400, L300.3900 #### [facility] [address] [place], [address] CO2 [Moles/Vol] 20.3 mmol/L Low 21.0-32.0 [facility] Comment on above: Order Comment: HEATHER Owens ADD TAYLOR FOR RESULTS Performed By: #### L 500.4100, L100.0100, L501.9520, L503.0106, L501.9940, L500.4050, L506.1001, L506.0400, L300.3900 #### [facility] [address] [place], [address] Creatinine [Mass/Vol] 1.08 mg/dL Normal 0.70-1.20 [facility] Comment on above: Order Comment: HEATHER DOMINGUEZ TAYLOR FOR RESULTS Performed By: #### L 500.4100, L100.0100, L501.9520, L503.0106, L501.9940, L500.4050, L506.1001, L506.0400, L300.3900 #### [facility] [address] [place], [address] GAP 13 Normal 5-15 [facility] Comment on above: Order Comment: HEATHER DOMINGUEZ TAYLOR FOR RESULTS Performed By: #### L 500.4100, L100.0100, L501.9520, L503.0106, L501.9940, L500.4050, L506.1001, L506.0400, L300.3900 #### [facility] [address] [place], [address] GFR/1.73 sq M.predicted among non-blacks MDRD (S/P/Bld) [Vol rate/Area] 69 mL/min/{1.73_m2} Normal >60 [facility] Comment on above: Order Comment: HEATHER DOMINGUEZ TAYLOR FOR RESULTS Result Comment: mL/m in/1.73m2 CKD-EPI Creatinine Equation (2020) Performed By: #### L 500.4100, L100.0100, L501.9520, L503.0106, L501.9940, L500.4050, L506.1001, L506.0400, L300.3900 #### [facility] [address], [address] Globulin (S) [Mass/Vol] 3.4 g/dL Normal 2.2-4.2 [facility] Comment on above: Order Comment: HEATHER VAZQUEZ FOR RESULTS Performed By: #### L 500.4100, L100.0100, L501.9520, L503.0106, L501.9940, L500.4050, L506.1001, L506.0400, L300.3900 #### [facility] [address] [place], [address] Glucose [Mass/Vol] 102 mg/dL High 70-99 [facility] Comment on above: Order Comment: HEATHER VAZQUEZ FOR RESULTS Performed By: #### L 500.4100, L100.0100, L501.9520, L503.0106, L501.9940, L500.4050, L506.1001, L506.0400, L300.3900 #### [facility] [address] [place], [address] Potassium [Moles/Vol] 4.3 mmol/L Normal 3.3-5.1 [facility] Comment on above: Order Comment: HEATHER VAZQUEZ FOR RESULTS Performed By: #### L 500.4100, L100.0100, L501.9520, L503.0106, L501.9940, L500.4050, L506.1001, L506.0400, L300.3900 #### [facility] [address] [place], [address] Sodium [Moles/Vol] 139 mmol/L Normal 133-145 [facility] Comment on above: Order Comment: HEATHER VAZQUEZ FOR RESULTS Performed By: #### L 500.4100, L100.0100, L501.9520, L503.0106, L501.9940, L500.4050, L506.1001, L506.0400, L300.3900 #### [facility] [address] [place], [address] T PROT 8.0 g/dL Normal 5.9-8.4 [facility] Comment on above: Order Comment: HEATHER VAZQUEZ FOR RESULTS Performed By: #### L 500.4100, L100.0100, L501.9520, L503.0106, L501.9940, L500.4050, L506.1001, L506.0400, L300.3900 #### [facility] [address] [place], [address] Urea nitrogen [Mass/Vol] 27 mg/dL High 4-19 [facility] Comment on above: Order Comment: HEATHER VAZQUEZ FOR RESULTS Performed By: #### L 500.4100, L100.0100, L501.9520, L503.0106, L501.9940, L500.4050, L506.1001, L506.0400, L300.3900 #### [facility] [address] [place], [address] Eosinophil percentageOrdered By: Ankur Lovett on 11-15-2024 Eosinophils/100 WBC (Bld) 4.0 % 0-5 [facility] Erythrocyte distribution wid th ratioOrdered By: Ankur Lovett on 11-15-2024 Erythrocyte distribution width (RBC) [Ratio] 15.8 % High 11.6-14.6 [facility] Erythrocyte distribution wid th standard deviationOrdered By: Ankur Lovett on 11-15-2024 Erythrocyte distribution width (RBC) [Ratio] 55.8 fl High 35.1-43.9 [facility] Glomerular filtration rate ( GFR) estimation/1.73 sq m using serum, plasma, or whole bOrdered By: Ankur Lovett on 11-15-2024 GFR/1.73 sq M.predicted among non-blacks MDRD (S/P/Bld) [Vol rate/Area] 69 mL/min/{1.73_m2} >60 [facility] Comment on above: mL/min/1.73m2 CKD-EP I Creatinine Equation (2020) Hematocrit Auto (Bld) [Volum e fraction]Ordered By: Ankur Lovett on 11-15-2024 Hematocrit (Bld) [Volume fraction] 49.0 % 40-54 [facility] Hemoglobin measurementOrdere d By: Ankur Lovett on 11-15-2024 Hemoglobin (Bld) [Mass/Vol] 16.2 g/dL 13.0-16.5 [facility] Immature granulocytes/100 WB C Auto (Bld)Ordered By: Ankurtiff Lovett on 11-15-2024 Immature granulocytes/100 WBC (Bld) 0.500 % 0.0-0.9 [facility] Comment on above: IG% - Immature Granu locytes (promyelocytes, myelocytes and metamyelocytes) > 1% indicates that a LEFT SHIFT is Present. International normalized rat io (INR) calculationOrdered By: Ankur Lovett on 11-15-2024 INR Coag (Bld) [Relative time] 2.5 {INR} [facility] LDL calc ser/plasOrdered By: Ankur Bony on 11-15-2024 Cholesterol in LDL [Mass/Vol] 173 mg/dL [facility] Comment on above: Odhvnwcrqz=679-307 m g/dL & Higher Skhm=594 mg/dL or greater Laboratory - Chemistry and C hemistry - challengeOrdered By: Ankurtiff Lovett on 11-15-2024 AST [Catalytic activity/Vol] 22 U/L <38 [facility] Lipid Profileon 11-15-2024 CHOL:HDL 3.57 Normal [facility] Comment on above: Order Comment: HEATHER VAZQUEZ FOR RESULTS Performed By: #### L 500.4100, L100.0100, L501.9520, L503.0106, L501.9940, L500.4050, L506.1001, L506.0400, L300.3900 #### [facility] [address] [place], [address] Cholesterol [Mass/Vol] 271 mg/dL High <=200 [facility] Comment on above: Order Comment: HEATHER VAZQUEZ FOR RESULTS Result Comment: Chol esterol level, Desirable <200 mg/dL Borderline high cholesterol 200-239 mg/dL High cholesterol >=240 mg/dL Recommendations of the NCEP Adult Treatment Panel for the following risk-cutoff thresholds for the [place] population. Performed By: #### L 500.4100, L100.0100, L501.9520, L503.0106, L501.9940, L500.4050, L506.1001, L506.0400, L300.3900 #### [facility] [address] [facility] [place], [address] (624) Cholesterol in HDL [Mass/Vol] 76 mg/dL Normal [facility] Comment on above: Order Comment: HEATHER VAZQUEZ FOR RESULTS Result Comment: Yakelin onal Cholesterol Education Program (NCEP) guidelines: <40 mg/dL: Low HDL-cholesterol (major risk factor for CHD) >= 60 mg/dL: High HDL-cholesterol (negative risk factor for CHD) HDL-cholesterol is affected by a number of factors, e.g. smoking, exercise, hormones, sex and age. Performed By: #### L 500.4100, L100.0100, L501.9520, L503.0106, L501.9940, L500.4050, L506.1001, L506.0400, L300.3900 #### [facility] [address] [facility] [place], [address] Cholesterol in LDL [Mass/Vol] 173 mg/dL Normal [facility] Comment on above: Order Comment: HEATHER VAZQUEZ FOR RESULTS Result Comment: Bord caomog=011-922 mg/dL Higher Rdrd=615 mg/dL or greater Performed By: #### L 500.4100, L100.0100, L501.9520, L503.0106, L501.9940, L500.4050, L506.1001, L506.0400, L300.3900 #### [facility] [address] [place], [address] Cholesterol in VLDL [Mass/Vol] 22 mg/dL Normal 5-40 [facility] Comment on above: Order Comment: PLEAS E ADD TAYLOR FOR RESULTS Performed By: #### L 500.4100, L100.0100, L501.9520, L503.0106, L501.9940, L500.4050, L506.1001, L506.0400, L300.3900 #### [facility] [address] [place], [place], [id number] (627) Triglyceride [Mass/Vol] 112 mg/dL Normal [facility] Comment on above: Order Comment: PLEAS E ADD TAYLOR FOR RESULTS Result Comment: The drugs N-Acetylcysteine and Metamizole may falsely depress this assay. Normal range: <150 mg/dL Borderline High: 150-199 mg/dL High: 200-499 mg/dL Very High: >500 mg/dL Performed By: #### L 500.4100, L100.0100, L501.9520, L503.0106, L501.9940, L500.4050, L506.1001, L506.0400, L300.3900 #### [facility] [address] [place], [place], [id number] MCV (mean corpuscular volume ) determinationOrdered By: Ankur Lovett on 11-15-2024 MCV (RBC) [Entitic vol] 95.3 fL High 80-94 [facility] Mean corpuscular hemoglobin (MCH) determinationOrdered By: Ankur Lovett on 11-15-2024 MCH (RBC) [Entitic mass] 31.5 pg 27.0-32.0 [facility] Mean corpuscular hemoglobin concentration (MCHC) determinationOrdered By: Ankur Lovett on 11-15-2024 MCHC (RBC) [Mass/Vol] 33.1 g/dL 32-36 [facility] Mean platelet volume determi nationOrdered By: Ankur Lovett on 11-15-2024 Platelet mean volume (Bld) [Entitic vol] 9.5 fL 6.2-12.0 [facility] Monocyte percentageOrdered B y: Ankur Lovett on 11-15-2024 Monocytes/100 WBC (Bld) 10.3 % High 0-10 [facility] Neutrophil percentageOrdered By: Ankur Lovett on 11-15-2024 Neutrophils/100 WBC (Bld) 72.3 % High 47-70 [facility] Nucleated red blood cell per centageOrdered By: Ankur Lovett on 11-15-2024 Nucleated RBC/100 WBC (Bld) [Ratio] 0 % 0-5 [facility] PSA,Total- [employer] 10-24 PSA, DIAGNOSTIC 2.60 ng/mL Normal 0.00-4.00 [facility] Comment on above: Order Comment: HEATHER Owens ADD TAYLOR FOR RESULTS Result Comment: This test was performed using the [employer] tPSA method. Measured values of a patient??sample can vary depending on the testing procedure used. PSA values determined on patient samples by different testing procedures cannot be used interchangeably. If there is a change in PSA assays while monitoring therapy, sequential testing should be performed to confirm baseline values. Performed By: #### L 500.4100, L100.0100, L501.9520, L503.0106, L501.9940, L500.4050, L506.1001, L506.0400, L300.3900 #### [facility] [address] [place] [address]. [place], [place], [id number] Platelet countOrdered By: Ra kimmy Lovett on 11-15-2024 Platelets (Bld) [#/Vol] 406 10*3/uL 150-450 [facility] Potassium measurement (mass/ volume)Ordered By: Ankur Lovett on 11-15-2024 Potassium (Unsp spec) [Mass/Vol] 4.3 mmol/L 3.3-5.1 [facility] Prothrombin Time w/INRon INR Coag (PPP) [Relative time] 2.5 {INR} Normal [facility] Comment on above: Performed By: #### L 500.4100, L100.0100, L501.9520, L503.0106, L501.9940, L500.4050, L506.1001, L506.0400, L300.3900 #### [facility] [address] [facility] [place], [address] PT Coag (PPP) [Time] 27.3 s High 11.7-14.9 [facility] Comment on above: Performed By: #### L 500.4100, L100.0100, L501.9520, L503.0106, L501.9940, L500.4050, L506.1001, L506.0400, L300.3900 #### [facility] [address] [facility] [place], [place], [id number] Prothrombin timeOrdered By: Ankur Lovett on 11-15-2024 PT Coag (PPP) [Time] 27.3 s High 11.7-14.9 [facility] RBC Auto (Bld) [#/Vol]Ordere d By: Ankur Lovett on 11-15-2024 RBC (Bld) [#/Vol] 5.14 10*6/uL 4.6-6.2 [facility] Screening total cholesterol/ high density lipoprotein (HDL) cholesterol ratioOrdered By: Ankur Lovett on 11-15-2024 Cholesterol.total/Whitley sterol in HDL [Mass ratio] 3.57 {ratio} [facility] Serum creatinine measurement (mass/volume)Ordered By: Ankur Lovett on 11-15-2024 Creatinine [Mass/Vol] 1.08 mg/dL 0.70-1.20 [facility] Serum globulin measurementOr dered By: Ankur Lovett on 11-15-2024 Globulin (S) [Mass/Vol] 3.4 g/dL 2.2-4.2 [facility] Serum glucose measurement (m ass/volume)Ordered By: Ankur Lovett on 11-15-2024 Glucose [Mass/Vol] 102 mg/dL High 70-99 [facility] Serum or plasma alanine marin otransferase (ALT) measurementOrdered By: Ankur Lovett on 11-15-2024 ALT [Catalytic activity/Vol] 12 U/L <47 [facility] Serum or plasma albumin sharon urement (mass/volume)Ordered By: Ankur Lovett on 11-15-2024 Albumin [Mass/Vol] 4.5 g/dL 3.4-4.8 [facility] Serum or plasma albumin/glob ulin mass ratioOrdered By: Ankur Lovett on 11-15-2024 Albumin/Globulin [Mass ratio] 1.3 {ratio} 0.9-2.4 [facility] Serum or plasma alkaline theresa sphatase measurementOrdered By: Ankur Lovett on 11-15-2024 ALP [Catalytic activity/Vol] 88 U/L 40-129 [facility] Serum or plasma calcium sharon urement (mass/volume)Ordered By: Ankur Lovett on 11-15-2024 Calcium [Mass/Vol] 9.6 mg/dL 7.6-11.0 [facility] Serum or plasma cholesterol in HDL measurement (mass/volume)Ordered By: Ankur Lovett on 11-15-2024 Cholesterol in HDL [Mass/Vol] 76 mg/dL >40 [facility] Comment on above: National Cholesterol Education Program (NCEP) guidelines:<40 mg/dL: Low HDL-cholesterol (major risk factor for CHD)>= 60 mg/dL: High HDL-cholesterol (negative risk factor for CHD)HDL-cholesterol is affected by a number of factors, e.g. smoking, exercise, hormones, sex and age. Serum or plasma cholesterol measurement (mass/volume)Ordered By: Ankur Lovett on 11-15-2024 Cholesterol [Mass/Vol] 271 mg/dL High <201 [facility] Comment on above: Cholesterol level, D esirable <200 mg/dLBorderline high cholesterol 200-239 mg/dLHigh cholesterol >=240 mg/dLRecommendations of the NCEP Adult Treatment Panel for the following risk-cutoff thresholds for the [place] population. Serum or plasma urea nitroge n measurement (mass/volume)Ordered By: Ankur Lovett on 11-15-2024 Urea nitrogen [Mass/Vol] 27 mg/dL High 4-19 [facility] Sodium levelOrdered By: Elicia Lovett on 11-15-2024 Sodium [Moles/Vol] 139 mmol/L 133-145 [facility] T4 Free Directon 11-15-2024 T4 FREE DIRECT 1.80 ng/dL High 0.76-1.46 [facility] Comment on above: Order Comment: HEATHER VAZQUEZ FOR RESULTS Performed By: #### L 300.3900 #### [facility] [address] [place], [place], [id number] T4 freeOrdered By: Ankur sharp on 11-15-2024 Free T4 [Mass/Vol] 1.80 ng/dL High 0.76-1.46 [facility] TSH DL <= 0.005 mIU/L QnOrde red By: Ankur Lovett on 11-15-2024 TSH Qn 0.958 uIU/mL 0.300-4.200 [facility] Thyroid Stim Hormone (TSH)on 11-15-2024 TSH 0.958 uIU/mL Normal 0.300-4.200 [facility] Comment on above: Order Comment: HEATHER VAZQUEZ FOR RESULTS Performed By: #### L 500.4100, L100.0100, L501.9520, L503.0106, L501.9940, L500.4050, L506.1001, L506.0400, L300.3900 #### [facility] [address] [place], [place], [address] Total proteinOrdered By: Nayana Lovett on 11-15-2024 Protein [Mass/Vol] 8.0 g/dL 5.9-8.4 [facility] Triglycerides measurementOrd ered By: Ankur Lovett on 11-15-2024 Triglyceride [Mass/Vol] 112 mg/dL <199 [facility] Comment on above: The drugs N-Acetylcy steine and Metamizole may falsely depress this assay. Normal range: <150 mg/dLBorderline High: 150-199 mg/dLHigh: 200-499 mg/dLVery High: >500 mg/dL Vitamin B12on 11-15-2024 Cobalamin (Vitamin B12) [Mass/Vol] 1443 pg/mL High 180-914 [facility] Comment on above: Order Comment: HEATHER VAZQUEZ FOR RESULTS Performed By: #### L 300.3900 #### [facility] [address] [place], [place], [id number] Vitamin B12 ser/plasOrdered By: Ankur Lovett on 11-15-2024 Cobalamin (Vitamin B12) [Mass/Vol] 1443 pg/mL High 180-914 [facility] Vitamin D,25 Hydroxyon 11-15 Vitamin D 25-OH 33.1 ng/mL Normal 30-100 [facility] Comment on above: Order Comment: HEATHER VAZQUEZ FOR RESULTS Result Comment: Anne Marie min D Status Deficiency: <20 ng/mL (50nmol/L) Insufficiency: 20-30 ng/mL (50-75 nmol/L) Sufficiency: 30-100 ng/mL (75-250 nmol/L) Toxicity: >100 ng/mL (>250 nmol/L) Performed By: #### L 300.3900 #### [facility] [address] [place], [place], [id number] White blood cell (WBC) count Ordered By: Ankur Lovett on 11-15-2024 WBC (Bld) [#/Vol] 9.4 10*3/uL 4.4-11.0 [facility] International normalized rat io (INR) calculationOrdered By: Kaila Toribio on 08-23-2024 INR Coag (Bld) [Relative time] 2.2 {INR} [facility] PSA,Total- Diagnosticon 04-0 PSA, DIAGNOSTIC 3.25 ng/mL Normal 0.00-4.00 [facility] Comment on above: Order Comment: PT MARÍA WILSON FOR VIJAY Result Comment: This test was performed using the [employer] tPSA method. Measured values of a patient??sample can vary depending on the testing procedure used. PSA values determined on patient samples by different testing procedures cannot be used interchangeably. If there is a change in PSA assays while monitoring therapy, sequential testing should be performed to confirm baseline values. Performed By: #### L 300.3900 #### [facility] [address] [place], [address] Prothrombin Time w/INRon INR Coag (PPP) [Relative time] 2.2 {INR} Normal [facility] Comment on above: Performed By: #### L 300.3900 #### [facility] [address] [place], [address] PT Coag (PPP) [Time] 24.7 s High 11.7-14.9 [facility] Comment on above: Performed By: #### L 300.3900 #### [facility] [address] [place], [address] Prothrombin timeOrdered By: Kaila Toribio on 08-23-2024 PT Coag (PPP) [Time] 24.7 s High 11.7-14.9 [facility] Progress Noteon 07-26-2024 Progress Note 07/26/24 1247 BPCI Late Drop? Program late drop? No BPCI Outreach Assessment Selection Which outreach assessment are you completing? 90 Day BPCI - 90 Day Outreach Did patient answer phone call? Yes (completed 07/22 by CHW) Since you have been discharged from the facility, what do you feel the status of you condition is? Improving Do you have any concerns with your medication(s)? No Any complications with post discharge services? N/A Any concerns with your DME equipment? N/A Any questions about your condition you are unsure about that I can help clarify? No EMR reviewed. Patient enrolled in [facility] 90-day BPCI Program post-hospital discharge 04/26/24 to home. Dx: Severe Aortic stenosis, TAVR 04/25/24. 90-day BPCI completed 07/22/24 by CHW patient doing well denied any SOB, refills on meds, health concerns or questions. 90-day BPCI program complete able to avoid hospital readmission during BPCI program case closed. Normal [facility] Progress Noteon 07-22-2024 Progress Note 07/22/24 Community Health Worker Patient active with: DAWSON, RN ALEN Rehman Chart review completed. Follow up Appointments 03/30 Cardiology 03/30 Echo/Stress Called patient and identified role and reason for call. Patient stated that he is doing good and feeling well. Denies any shortness of breath pain or discomfort. Denies need for refills at thi time. Follow up to be determined by CM. Normal [facility] Prothrombin Time w/INRon INR Coag (PPP) [Relative time] 2.4 {INR} Normal [facility] Comment on above: Performed By: #### L 300.3900 #### [facility] [address] [place], [place], [id number] PT Coag (PPP) [Time] 26.5 s High 11.7-14.9 [facility] Comment on above: Performed By: #### L 300.3900 #### [facility] [address] [place], [place], [id number] Progress Noteon 06-28-2024 Progress Note 06/28/24 Community Health Worker Patient active with: BPCI RN Gabriela Rehman Chart review completed. Follow up Appointments 03/30 Cardiology 04/09 Echo/Stress Called patient and identified role and reason for call. Patient stated that he feels a tiredness, but more than that he feels fine. We inquired about his medication and he noted that he is taking all his medication as prescribed. CHW let know the patient that this information will be shared with the RN and she will follow up. Patient agreed and verbalized understanding. Patient denies any other needs at this time. Outreach scheduled Normal [facility] Office Visiton 06-02-2024 Follow-up visit [id number] Hang Keenan 1945 M Date Provider Department Center 06/02/2024 [id number] CURIEL [facility] [address] No family history on file Level of Service:25035 AL OFFICE/OUTPATIENT ESTABLISHED MOD MDM 30 MIN Reason for Visit and Comments: Cardiac Valve Problem [1334] Normal [facility] Progress Noteon 06-02-2024 Progress Note [facility] - [facility] [address] [facility] [address] Dept: [phone] Dept Visit type: Established : 1945 Reason for Visit: Assessment and Plan 1. Paroxysmal atrial fibrillation (HCC). On warfarin, coreg 3.125 mg po bid 2. Aortic stenosis, severe. S/p TAVR. Echo today shows normal EF and normal biopros valve function with 1 + AI. Continue warfarin, SBE prophylaxis - ECG 12 lead - CLINIC PERFORMED - Transthoracic echocardiogram (TTE) complete with contrast, bubble, strain, and 3D PRN 3. First degree AV block. Stable. Await full MCT report. 4. HTN. BP controlled on Norvasc and Coreg 5. CAD. Hx of LAD stents, PCI major diag 12/2023. No angina. Warfarin in lieu of ASA. Intolerant of statins. LDL cholesterol 139 12/2023. Will consider ezetimibe. Dr. Ortiz 4-6 months, MM one year Subjective Mr Keenan is an 78 yr old male with a PMH of BPH, HPL, hypothyroidism, malignant thymoma s/p resection, carotid dissection, SERGO, AF on Coumadin CAD- s/p remote LAD stents; NSTEMI and PCI of major diagonal branch 12/2023, and severe aortic stenosis. He is s/p TAVR with 29 mm Maria Isabel S3 valve on 04/25/2024. Last OV we reduced coreg and placed MCT for worsening first degree AV block. Norvasc was increased for uncontrolled hypertension in the interim. He is here today for one month follow up. In review of his MCT in [facility], there has been no high degree AV block or bradycardia. He denies dyspnea, chest pain, dizziness. Fatigue is improving. BP has been controlled at home Allergies Allergen Reactions Levofloxacin achiness Lisinopril Didn't control bp well, labile Rosuvastatin Severe malagias Ceftriaxone Rash Cefuroxime Rash Cephalexin Pain in joints Outpatient Medications Prior to Visit Medication Sig Dispense Refill acetaminophen (Tylenol) 500 MG tablet Take 1,000 mg by mouth 3 times daily as needed for mild pain (1-3). amiodarone (Pacerone) 100 MG tablet Take 100 mg by mouth daily. amLODIPine (Norvasc) 5 MG tablet Take 10 mg by mouth daily. aspirin 81 MG EC tablet Take 1 tablet (81 mg) by mouth daily. Continue ASA 81 mg until INR above 2.0 carvedilol (Coreg) 3.125 MG tablet Take 1 tablet (3.125 mg) by mouth 2 times daily (with meals). 60 tablet 11 cholecalciferol (Vitamin D3) 25 MCG (1000 UT) tablet Take 1,000 Units by mouth daily. clopidogrel (Plavix) 75 MG tablet Take 1 tablet (75 mg) by mouth daily. 90 tablet 1 cyanocobalamin (Vitamin B-12) 1000 MCG tablet Take 1,000 mcg by mouth daily. finasteride (Proscar) 5 MG tablet Take 5 mg by mouth daily. Do not crush, chew, or split. levothyroxine (Synthroid, Levoxyl) 100 MCG tablet Take 100 mcg by mouth every morning (before breakfast). Multiple Vitamin (multivitamin) capsule Take 1 capsule by mouth daily. nitroglycerin (Nitrostat) 0.[address] 0.4 mg under the tongue every 5 minutes as needed for chest pain. warfarin (Coumadin) 5 MG tablet Take 5 mg by mouth daily. Take as directed per [facility] No facility-administered medications prior to visit. Past Medical History: Diagnosis Date Atelectasis BPH (benign prostatic hyperplasia) Carotid dissection, bilateral (CMS/HCC) (HCC) Chest pain Hearing loss of left ear Hematuria Hyperlipidemia Hypothyroidism Malignant thymoma (HCC) Nonrheumatic aortic (valve) stenosis Nonrheumatic mitral valve regurgitation SERGO (obstructive sleep apnea) Paroxysmal A-fib (CMS/HCC) (HCC) Pericarditis SVT (supraventricular tachycardia) (HCC) Social History Tobacco Use Smoking status: Never Smokeless tobacco: Never Substance Use Topics Alcohol use: Not on file Past Surgical History: Procedure Laterality Date CARDIAC CATHETERIZATION N/A 01/20/2024 Performed by Beck Santillan MD at [facility] Cardiac Cath/EP Lab CARDIAC CATHETERIZATION N/A 01/20/2024 Performed by Beck Santillan MD at [facility] Cardiac Cath/EP Lab CARDIAC CATHETERIZATION N/A 04/25/2024 Performed by Beck Santillan MD at [facility] OR No family history on file. Objective Vitals: 06/02/24 1238 06/02/24 1622 BP: (!) 142/80 130/78 BP Location: Right arm Patient Position: Sitting BP Cuff Size: Adult Pulse: 67 SpO2: 96% Weight: 154 lb 6.4 oz (70 kg) Height: 5' 4 (1.626 m) Physical Exam Constitutional: Appearance: Normal appearance. HENT: Head: Normocephalic and atraumatic. Nose: Nose normal. Eyes: Conjunctiva/sclera: Conjunctivae normal. Pupils: Pupils are equal, round, and reactive to light. Cardiovascular: Rate and Rhythm: Normal rate and regular rhythm. Pulmonary: Effort: Pulmonary effort is normal. Breath sounds: Normal breath sounds. Abdominal: General: Bowel sounds are normal. Palpations: Abdomen is soft. Musculoskeletal: General: Normal range of motion. Cervical back: Normal range of motion and neck supple. Skin: General: Skin is warm and dry. Neurological: General: No focal deficit prese (more content not included)... Normal [facility] [employer] [facility] US Heart TransthoracicOrdere d By: Jessica Perez on 06-02-2024 Ao Root Index 2.06 cm/m2 [facility] Work Phone: Aortic Arch 2.8 cm [facility] [employer] Work Phone: Aortic Root 3.6 cm [facility] [employer] Work Phone: Aortic Sinus Valsalva 3.6 cm Sum ri [employer] Work Phone: Aortic Sinus Valsalva Index 2.06 cm/m2 [facility] [employer] Phone: Aortic valve Mean systole pressure gradient by US.doppler derived full Bernoulli 11 mmHg [facility] Work Phone: Aortic valve Orifice area by US 2.8 cm2 [facility] [employer] Work Phone: Aortic valve Peak systolic flow by US.doppler 1.6 m/s [facility] [employer] Phone: AR Max Velocity PISA 4.6 m/s [facility] [employer] Work Phone: AR PHT 721.3 ms [facility] [employer] Work Phone: Ascending Aorta 3 cm [facility] Work Phone: Ascending Aorta Index 1.71 cm/m2 Sum ri [employer] Work Phone: AV Area by Peak Velocity 1.4 cm2 [facility] Work Phone: AV Area by VTI 1.5 cm2 [facility] Work Phone: AV AT 99.9 ms [facility] Work Phone: AV Peak Gradient 19 mmHg [facility] Work Phone: AV Peak Velocity 2.2 m/s [facility] Work Phone: AV Velocity Ratio 0.45 [facility] Work Phone: AV VTI 46.5 cm [facility] Work Phone: NADEGE/BSA Peak Velocity 0.8 cm2/m2 [facility] Work Phone: NADEGE/BSA VTI 0.9 cm2/m2 [facility] Work Phone: E/E' Lateral 10.14 [facility] Work Phone: E/E' Ratio (Averaged) 10.14 [facility] Work Phone: E/E' Septal 10.14 [facility] Work Phone: Est. RA Pressure 3 mmHg [facility] Work Phone: Fractional Shortening 2D 37 % 28 - 44 % [facility] Work Phone: Interpretation and review of laboratory results Abnormal [facility] Work Phone: IVC Diameter 1.5 cm [facility] Work Phone: IVSd 1.2 cm Abnormal 0.6 - 1.0 cm [facility] Work Phone: LA Diameter 4.5 cm [facility] Work Phone: LA Size Index 2.57 cm/m2 [facility] Work Phone: LA Volume 2C 73 mL Abnormal 18 - 58 mL [facility] Work Phone: LA Volume 4C 92 mL Abnormal 18 - 58 mL [facility] Work Phone: LA Volume A/L 88 mL [facility] Work Phone: LA Volume BP 83 mL Abnormal 18 - 58 mL [facility] Work Phone: LA Volume Index 2C 42 mL/m2 Abnormal 16 - 34 mL/m2 [facility] Work Phone: LA Volume Index 4C 53 mL/m2 Abnormal 16 - 34 mL/m2 [facility] Work Phone: LA Volume Index A/L 50 mL/m2 16 - 34 mL/m2 [facility] Work Phone: LA Volume Index BP 47 ml/m2 Abnormal 16 - 34 ml/m2 [facility] Work Phone: LA/AO Root Ratio 1.25 [facility] Work Phone: Left ventricular Ejection fraction by US.2D+Calculated by biplane method of disks 67 % 55 - 100 % [facility] Work Phone: LV E' Lateral Velocity 7 cm/s [facility] Work Phone: LV E' Septal Velocity 7 cm/s [facility] Work Phone: LV EDV A2C 126 mL [facility] Work Phone: LV EDV A4C 141 mL [facility] Work Phone: LV EDV BP 134 mL 67 - 155 mL [facility] Work Phone: LV EDV Index A2C 72 mL/m2 [facility] Work Phone: LV EDV Index A4C 81 mL/m2 [facility] Work Phone: LV EDV Index BP 77 mL/m2 [facility] Work Phone: LV Ejection Fraction A2C 72 % [facility] Work Phone: LV Ejection Fraction A4C 64 % [facility] Work Phone: LV ESV A2C 36 mL [facility] Work Phone: LV ESV A4C 50 mL [facility] Work Phone: LV ESV BP 44 mL 22 - 58 mL [facility] Work Phone: LV ESV Index A2C 21 mL/m2 [facility] Work Phone: LV ESV Index A4C 29 mL/m2 [facility] Work Phone: LV ESV Index BP 25 mL/m2 [facility] Work Phone: LV Mass 2D 241.2 g Abnormal 88 - 224 g [facility] Work Phone: LV Mass 2D Index 137.8 g/m2 Abnormal 49 - 115 g/m2 [facility] Work Phone: LV RWT Ratio 0.47 [facility] Work Phone: LVIDd 5.1 cm 4.2 - 5.9 cm [facility] Work Phone: LVIDd Index 2.91 cm/m2 [facility] Work Phone: LVIDs 3.2 cm [facility] Work Phone: LVIDs Index 1.83 cm/m2 [facility] Work Phone: LVOT Cardiac Output 4.1 liter/minute [facility] Work Phone: LVOT Diameter 1.9 cm [facility] Work Phone: LVOT Mean Gradient 2 mmHg [facility] Work Phone: LVOT Peak Gradient 4 mmHg [facility] Work Phone: LVOT Peak Velocity 1 m/s [facility] Work Phone: [phone] LVOT Stroke Volume Index 39 mL/m2 [facility] Work Phone: [phone] LVOT SV 68.3 ml [facility] Work Phone: LVOT VTI 24.1 cm [facility] Work Phone: LVOT:AV VTI Index 0.52 [facility] e[facility] Work Phone: [phone] LVPWd 1.2 cm Abnormal 0.6 - 1.0 cm [facility] Work Phone: MV A Velocity 1.1 m/s [facility] Work Phone: MV E Velocity 0.71 m/s [facility] Work Phone: MV E Wave Deceleration Time 334.8 ms [facility] Work Phone: MV E/A 0.65 [facility] Work Phone: RA Area 4C 42.4 mL [facility] Work Phone: RA Area 4C 41.7 mL [facility] Work Phone: RV Free Wall Peak S' 11 cm/s [facility] Work Phone: RVSP 25 mmHg [facility] Work Phone: TAPSE 2.2 cm 1.7 cm [facility] Work Phone: TR Max Velocity 2.37 m/s [facility] Work Phone: TR Peak Gradient 23 mmHg [facility] Work Phone: [facility] Work Phone: Heart Transthoracicon Left Ventricle: Left ventricle size is normal. Mildly increased wall thickness. Normal left ventricular systolic function. EF by 2D [employer]psons Biplane is 67%. Normal wall motion. Indeterminate diastolic function. Right Ventricle: Right ventricle size is normal. Normal systolic function. Aortic Valve: Eisenberg Maria Isabel 3 Ultra bioprosthetic aortic valve that is well-seated with a size of 29 mm. Mild (1+) paravalvular regurgitation. No stenosis. Normal prosthetic gradient. AV mean gradient is 11 mmHg. AV peak velocity is 2.2 m/s. LVOT:AV VTI Index is 0.52. Tricuspid Valve: Normal RVSP. RVSP is 25 mmHg. Left Atrium: Left atrium is moderately dilated. LA Vol Index is 47 ml/m2. Left Ventricle Left ventricle size is normal. Mildly increased wall thickness. Normal left ventricular systolic function. EF by 2D Simpsons Biplane is 67%. Normal wall motion. Indeterminate diastolic function. Right Ventricle Right ventricle size is normal. Normal systolic function. Left Atrium Left atrium is moderately dilated. LA Vol Index is 47 ml/m2. Right Atrium Right atrium size is normal. IVC/SVC IVC diameter is normal and decreases greater than 50% during inspiration; therefore the estimated right atrial pressure is normal (~3 mmHg). Mitral Valve Mildly thickened leaflets. Mild annular calcification. Trace regurgitation. No stenosis noted. Tricuspid Valve Valve structure is normal. Mild (1+) regurgitation. Normal RVSP. RVSP is 25 mmHg. Aortic Valve Eisenberg Maria Isabel 3 Ultra bioprosthetic aortic valve that is well-seated with a size of 29 mm. Mild (1+) paravalvular regurgitation. No stenosis. Normal prosthetic gradient. AV mean gradient is 11 mmHg. AV peak velocity is 2.2 m/s. LVOT:AV VTI Index is 0.52. Pulmonic Valve The pulmonic valve was not well visualized. Trace regurgitation. Ascending Aorta Normal sized sinuses of Valsalva and ascending aorta. Pericardium No pericardial effusion. Septum No interatrial shunt visualized on color Doppler. Study Details Image quality: adequate. Heart rate: 66 bpm. Blood pressure: 143/86 mmHg. Technical qualifiers: Technically difficult study with poor endocardial visualization and technically difficult study due to low parasternal window. Ultrasound enhancement agent was given to enhance imaging. CV CPACS Progress Noteon 05-27-2024 Progress Note 05/27/24 Community Health Worker Patient active with: [facility] JESSICA Rehman Chart review completed. Follow up Appointments 06/02/24 Cardiology (Stress Room) 06/02/24 Cardiology No recent missed appointments. Called patient and identified role and reason for call. Patient stated he is feeling OK, denies any shortness of breath. Discussed upcoming appointments patient aware of date and time, denies transportation issues. Patient denies needs of refills. No need for Community Resources were identified at this time. Outreach scheduled Normal [facility] 36on 05-24-2024 36 scheduled Normal [facility] 36 Can I get a 1 yr TAV R follow up echo order please? Normal [facility] Progress Noteon 05-20-2024 Progress Note EMR reviewed. Becky blum enrolled in [facility] Cardiac 90-day BPCI Program post-hospital discharge 04/26/24 to home. Dx: Severe Aortic stenosis, TAVR 04/25/24 discharge summary copied below. CM to follow 90 days post hospital-discharge. 21-day post hospital discharge outreach made unable to reach lvm. Future outreach scheduled. Normal [facility] Prothrombin Time w/INRon INR Coag (PPP) [Relative time] 2.5 {INR} Normal [facility] Comment on above: Performed By: #### L 300.3900 #### [facility] [address] [place], [place], [address] PT Coag (PPP) [Time] 27.1 s High 11.7-14.9 [facility] Comment on above: Performed By: #### L 300.3900 #### [facility] [address] [place], [place], [id number] 36on 05-11-2024 36 PC to patient, spoke with . BP has been elevated for a while. Carvedilol was recently decreased 2/2 new first degree AVB on EKG. Advised to increase amlodipine from 5 mg to 10 mg once a day. Please check BP at least every other day, 2 hours after morning medications. Advised her to call with BP readings in 1-2 weeks. She verbalized understanding. [facility] 36 Received call from patient and about concerns of high BP since GIBRAN Anthony Curiel APRN 05/05/24 where carvedilol was decreased to 3.125 mg bid due to first degree AV block. Yesterday patient's BP 155/90 and today was 153/80. Confirmed patient takes amlodipine 5 mg daily and BP is taken at least 2 hours after medications. Denies any lightheadedness, dizziness or syncopal feelings. Did state he had one episode of chest pressure last evening after dinner that lasted a few hours. Patient was resting laying down during episode. Instructed patient after eating to remain sitting upright for at least 30 minutes to help prevent acid reflux. Denies any other episodes of chest pressure. Anthony Resendiz APRN to review and advise [facility] Progress Noteon 05-11-2024 Progress Note 12/18/24 Community Health Worker Patient active with BPCI RN Gabriela Rehman Chart Reviewed Appointments 06/02/24 Cardiology (Stress Room) 06/02/24 Cardiology Phone call to patient, left voice message with information to call back. Outreach scheduled Normal [facility] 36on 05-05-2024 36 PA is needed for STA T MCT ordered by Kaila Curiel for a TAVR patient. Normal [facility] Office Visiton 05-05-2024 Follow-up visit [id number] Hang Keenan 1945 M Date Provider Department Center 05/05/2024 10586-AVOUYSKAILA CURIEL [facility] [address] No family history on file Level of Service:00820 AL OFFICE/OUTPATIENT ESTABLISHED MOD MDM 30 MIN Reason for Visit and Comments: Hospital Follow-up [832] Normal [facility] Progress Noteon 05-05-2024 Progress Note [facility] [place] [address] [place] [address] Dept: [phone] Dept Visit type: Established : 1945 Reason for Visit: Hospital Follow-up Assessment and Plan 1. First degree AV block - ECG 12 lead - CLINIC PERFORMED - carvedilol (Coreg) 3.125 MG tablet; Take 1 tablet (3.125 mg) by mouth 2 times daily (with meals)., Starting Amber 05/05/2024, Until Thu05/05/2025, Normal - Cardiac laboratory monitor (30 days) - Transthoracic echocardiogram (TTE) complete with contrast, bubble, strain, and 3D PRN 2. Paroxysmal atrial fibrillation (HCC) - ECG 12 lead - CLINIC PERFORMED 3. Other specified heart block - ECG 12 lead - CLINIC PERFORMED - carvedilol (Coreg) 3.125 MG tablet; Take 1 tablet (3.125 mg) by mouth 2 times daily (with meals)., Starting Amber 05/05/2024, Until Thu05/05/2025, Normal - Cardiac laboratory monitor (30 days) - Transthoracic echocardiogram (TTE) complete with contrast, bubble, strain, and 3D PRN 4. Aortic valve stenosis, etiology of cardiac valve disease unspecified - Transthoracic echocardiogram (TTE) complete with contrast, bubble, strain, and 3D PRN 5. Abnormal EKG - ECG 12 lead - CLINIC PERFORMED - carvedilol (Coreg) 3.125 MG tablet; Take 1 tablet (3.125 mg) by mouth 2 times daily (with meals)., Starting Amber 05/05/2024, Until Thu05/05/2025, Normal - Cardiac laboratory monitor (30 days) - Transthoracic echocardiogram (TTE) complete with contrast, bubble, strain, and 3D PRN 6. S/P TAVR (transcatheter aortic valve replacement) - ECG 12 lead - CLINIC PERFORMED - carvedilol (Coreg) 3.125 MG tablet; Take 1 tablet (3.125 mg) by mouth 2 times daily (with meals)., Starting Amber 05/05/2024, Until Thu05/05/2025, Normal - Cardiac laboratory monitor (30 days) - Transthoracic echocardiogram (TTE) complete with contrast, bubble, strain, and 3D PRN Patient has developed worsening first degree heart block post TAVR and will require MCT today. Plan echo and re-evaluation in one month. SBE prophylaxis. Decrease Coreg to 3.125 mg bid daily. HE will continue Plavix for CAD and warfarin for AF- mgt per [place] [facility]. He was advised to stop ASA. His CAD is stable. He has prior intol to statins. He is not interested in cardiac rehab at this time but will begin resuming low grade activity. BP is controlled to today but will need to follow in light of change in Coreg dose. Follow up in about 4 weeks (around 06/02/2024) for echo/ANGELES one month. Subjective Mr Keenan is an 78 yr old male with a PMH of BPH, HPL, hypothyroidism, malignant thymoma s/p resection, carotid dissection, SERGO, AF on Coumadin CAD- s/p remote LAD stents; NSTEMI and PCI of major diagonal branch 12/2023, and severe aortic stenosis. He is s/p TAVR with 29 mm Maria Isabel S3 valve on 04/25/2024. He had some minor bleeding from his access site post procedure that resolved with manual pressure. He was discharged on POD 1. At mi is was recommended he take Coumadin, Plavix, and ASA until INR above 2, at which time ASA would be stopped. He is here today for one week follow up appt. He notes fatigue. No dyspnea or chest pain. He denies syncope or dizziness. Allergies Allergen Reactions Levofloxacin achiness Lisinopril Didn't control bp well, labile Rosuvastatin Severe malagias Ceftriaxone Rash Cefuroxime Rash Cephalexin Pain in joints Outpatient Medications Prior to Visit Medication Sig Dispense Refill amLODIPine (Norvasc) 5 MG tablet Take 2.5 mg by mouth daily. (Patient taking differently: Take 5 mg by mouth daily.) acetaminophen (Tylenol) 500 MG tablet Take 1,000 mg by mouth 3 times daily as needed for mild pain (1-3). amiodarone (Pacerone) 100 MG tablet Take 100 mg by mouth daily. aspirin 81 MG EC tablet Take 1 tablet (81 mg) by mouth daily. Continue ASA 81 mg until INR above 2.0 cholecalciferol (Vitamin D3) 25 MCG (1000 UT) tablet Take 1,000 Units by mouth daily. clopidogrel (Plavix) 75 MG tablet Take 1 tablet (75 mg) by mouth daily. 90 tablet 1 cyanocobalamin (Vitamin B-12) 1000 MCG tablet Take 1,000 mcg by mouth daily. finasteride (Proscar) 5 MG tablet Take 5 mg by mouth daily. Do not crush, chew, or split. levothyroxine (Synthroid, Levoxyl) 100 MCG tablet Take 100 mcg by mouth every morning (before breakfast). Multiple Vitamin (multivitamin) capsule Take 1 capsule by mouth daily. nitroglycerin (Nitrostat) 0.[address] 0.4 mg under the tongue every 5 minutes as needed for chest pain. warfarin (Coumadin) 5 MG tablet Take 5 mg by mouth daily. Take as directed per [facility] carvedilol (Coreg) 12.5 MG tablet Take 12.5 mg by mouth in the morning and 12.5 mg in the evening. Take with meals. No facility-administered medications prior to visit. Past Medical History: Diagnosis Date Atelectasis BPH (benign prostatic hyperplasia) Carotid dissection, bilateral (CMS/HCC) (HCC) Chest pain Hearing loss of left ear (more content not included)... Normal [facility] Prothrombin Time w/INRon INR Coag (PPP) [Relative time] 1.7 {INR} Normal [facility] Comment on above: Performed By: #### L 593.8580 #### [facility] [address] [place], [place], [address] PT Coag (PPP) [Time] 19.9 s High 11.7-14.9 [facility] Comment on above: Performed By: #### L 300.3900 #### [facility] [address] [place], [address] Progress Noteon 05-02-2024 Progress Note 05/02/24 1457 BPCI Late Drop? Program late drop? No BPCI Outreach Assessment Selection Which outreach assessment are you completing? 7 Day BPCI - 7 Day Outreach Did patient answer phone call? Yes Have you experienced any issues, decline or backsliding in your condition? No Do you have any question on managing your condition? Yes (When will my energy level preop return) Any issues with scheduling your follow up appointment with your provider? No Do you have any issues with Transportation to your appointments? No Do you feel there are any barriers to you progressing toward your post d/c goals? No Are you missing any Post discharge Services? No Any issues with the services provided? No Are there any additional items you need or questions in your condition that you need clarified? No Educational and general instructions provided: Medication Adherence;Low sodium diet Have you had any thoughts of returning to the hospital/SNF? No Reminded patient about 30 day window to re-admit to SNF/HHC if needed. Done EMR reviewed. Patient enrolled in [facility] 90-day BPCI Program post-hospital discharge 04/26/24 to home. Dx: Severe Aortic stenosis, TAVR 04/25/24 discharge summary copied below. CM to follow 90 days post hospital-discharge. 7-day post hospital discharge outreach made spoke with patient reports doing okay overall, but is very tired feels like does not have a lot of energy, encouraged to stay as active as possible, denies any SOB, pain, or other issues. Cardiology visit scheduled 05/05/24 at 2 PM plans on attending. Beck Santillan MD Physician Cardiology Discharge Summary Signed Date of Service: 04/26/2024 1:13 PM Signed Expand All Collapse All Name: Hang Keenan Date of : 1945 Date of Admission: 04/25/2024 Date of Discharge: 04/26/2024 Admitting physician: Beck Santillan MD Discharge Attending: GABRIELA Hagan CNP, MD Primary Care Physician: BI Manzo Reason for Admission: Severe Symptomatic Aortic Stenosis Consultants: cardiac rehab HOSPITAL ADMISSION PROBLEM LIST: Problem List Patient Active Problem List Diagnosis Aortic stenosis, moderate Malignant thymoma (HCC) Paroxysmal atrial fibrillation (HCC) Aortic stenosis, severe Severe aortic stenosis Patient up in chair this am. Denies any chest pain, dyspnea, groin or wrist complaints. He reports not sleeping well, anxious to go home Review of Systems Review of Systems Constitutional: Negative for activity change, chills, diaphoresis, fatigue and fever. HENT: Negative for nosebleeds and trouble swallowing. Eyes: Negative for discharge and visual disturbance. Respiratory: Negative for apnea, cough, chest tightness, shortness of breath and wheezing. Cardiovascular: Negative for chest pain, palpitations and leg swelling. Gastrointestinal: Negative for abdominal distention, abdominal pain, blood in stool, diarrhea, nausea and vomiting. Endocrine: Negative for cold intolerance and heat intolerance. Genitourinary: Negative for hematuria. Musculoskeletal: Negative for gait problem and myalgias. Skin: Negative for color change and rash. Neurological: Negative for dizziness, seizures, syncope, facial asymmetry, speech difficulty, weakness, light-headedness, numbness and headaches. Hematological: Does not bruise/bleed easily. Psychiatric/Behaviora l: Negative for dysphoric mood. Physical Exam Physical Exam Constitutional: Appearance: Normal appearance. HENT: Head: Normocephalic and atraumatic. Nose: Nose normal. Eyes: Conjunctiva/sclera: Conjunctivae normal. Pupils: Pupils are equal, round, and reactive to light. Cardiovascular: Rate and Rhythm: Normal rate and regular rhythm. Heart sounds: Murmur heard. Systolic murmur is present with a grade of 1/6. Pulmonary: Effort: Pulmonary effort is normal. Breath sounds: Normal breath sounds. Abdominal: General: Bowel sounds are normal. Palpations: Abdomen is soft. Musculoskeletal: General: Normal range of motion. Cervical back: Normal range of motion and neck supple. Skin: General: Skin is warm and dry. Comments: Right groin ecchymotic, soft Neurological: General: No focal deficit present. Mental Status: He is alert and oriented to person, place, and time. Psychiatric: Mood and Affect: Mood normal. Thought Content: Thought content normal. Procedures: Transfemoral transcatheter AVR with 29 mm Maria Isabel S3 valve under moderate sedation Transthoracic echocardiogram HOSPITAL COURSE : The patient was admitted to the hospital for elective TAVR on 04/25/2024 . A 29 mm Maria Isabel S3 valve was implanted. The patient returned to [facility] for recovery. Vital signs and labs were stable. Post procedure, there was some groin bleeding that was stabilized with manual pressure and femstop. The patient was ambulatory the morning after the procedure (more content not included)... Normal [facility] Prothrombin Time w/INRon INR Coag (PPP) [Relative time] 1.2 {INR} Normal [facility] Comment on above: Order Comment: Comme nts: STANDING ORDER fax to [phone] Performed By: #### L 300.3900 #### [facility] [address] [place], [address] PT Coag (PPP) [Time] 15.4 s High 11.7-14.9 [facility] Comment on above: Order Comment: Comme nts: STANDING ORDER fax to [phone] Performed By: #### L 300.3900 #### [facility] [address] [place], [place], [id number] BASIC METABOLIC PANELon 12-0 Anion gap [Moles/Vol] 8 mmol/L Normal 3-13 [facility] Comment on above: Performed By: #### L AB15 #### Discharge Planner: LUL HENDERSON ([id number]) [facility] ([facility]) [address] [place] [address] Calcium [Mass/Vol] 8.6 mg/dL Normal 8.4-10.4 [facility] Comment on above: Performed By: #### L AB15 #### Discharge Planner: LUL HENDERSON ([id number]) [facility] ([facility]) [address] [place] [address] Chloride [Moles/Vol] 106 mmol/L Normal 98-107 [facility] Comment on above: Performed By: #### L AB15 #### Discharge Planner: LUL HENDERSON ([id number]) [facility] ([facility]) [address] [place] [address] CO2 [Moles/Vol] 22 mmol/L Normal 22-30 [facility] Comment on above: Performed By: #### L AB15 #### Discharge Planner: LUL HENDERSON ([id number]) [facility] ([facility]) [address] [place] [address] Creatinine [Mass/Vol] 0.76 mg/dL Normal 0.66-1.25 [facility] Comment on above: Performed By: #### L AB15 #### Discharge Planner: LUL HENDERSON ([id number]) [facility]) [address] [place] [address] GLOMERULAR FILTRATION RATE ML/MIN/1.73 SQ M.PREDICTED >90.0 Normal >60.0 [facility] Comment on above: Result Comment: Calc ulation based on the Chronic Kidney Disease Epidemiology Collaboration (CKD-EPI) equation refit without adjustment for race Performed By: #### L AB15 #### Discharge Planner: LUL HENDERSON ([id number]) [facility] ([facility]) [address] [place] [address] Glucose [Mass/Vol] 91 mg/dL Normal 70-100 [facility] Comment on above: Performed By: #### L AB15 #### Discharge Planner: LUL HENDERSON ([id number]) [facility]) [address] [place] [address] Potassium [Moles/Vol] 3.9 mmol/L Normal 3.5-5.1 [facility] Comment on above: Performed By: #### L AB15 #### Discharge Planner: LUL HENDERSON ([id number]) [facility]) [address] [place] [address] Sodium [Moles/Vol] 137 mmol/L Normal 135-145 [facility] Comment on above: Performed By: #### L AB15 #### Discharge Planner: LUL [id number]) [facility] [address] [place] [address] Urea nitrogen [Mass/Vol] 16 mg/dL Normal 9-20 [facility] Comment on above: Performed By: #### L AB15 #### Discharge Planner: LUL HENDERSON ([id number]) [facility] [address] [place] [address] Basic metabolic 1998 panelon 04-26-2024 Anion gap [Moles/Vol] 8 mmol/L 3 - 13 mmol/L [facility] Calcium [Mass/Vol] 8.6 mg/dL 8.4 - 10. 4 mg/dL [facility] Chloride [Moles/Vol] 106 mmol/L 98 - 10 7 mmol/L [facility] CO2 [Moles/Vol] 22 mmol/L 22 - 30 mmol/L [facility] Creatinine [Mass/Vol] 0.76 mg/dL 0.66 - 1.25 mg/dL [facility] GFR/1.73 sq M.predicted (S/P/Bld) [Vol rate/Area] - PINF [facility] Comment on above: Calculation based on the Chronic Kidney Disease Epidemiology Collaboration (CKD-EPI) equation refit without adjustment for race Glucose [Mass/Vol] 91 mg/dL 70 - 100 mg/dL [facility] Interpretation and review of laboratory results Normal [facility] Potassium [Moles/Vol] 3.9 mmol/L 3.5 - 5.1 mmol/L [facility] Sodium [Moles/Vol] 137 mmol/L 135 - 145 mmol/L [facility] Urea nitrogen [Mass/Vol] 16 mg/dL 9 - 20 mg/dL [facility] CBC (HEMOGRAM)on 04-26-2024 Erythrocyte distribution width (RBC) [Ratio] 15.1 % High 11.5-15.0 [facility] Comment on above: Performed By: #### L [id number] ####Discharge Planner: LUL HENDERSON ([id number])[facility] [place] [address] Hematocrit (Bld) [Volume fraction] 45.0 % Normal 40.0-52.0 [facility] Comment on above: Performed By: #### L AB294 ####Discharge Planner: LUL HENDERSON ([id number])[facility] ([facility])[address] [place] [address] Hemoglobin (Bld) [Mass/Vol] 15.2 g/dL Normal 13.0-18.0 [facility] Comment on above: Performed By: #### L [id number] ####Discharge Planner: LUL HENDERSON ([id number])[facility] ([facility])[address] [place] [address] MCH (RBC) [Entitic mass] 31.1 pg Normal 26.0-34.0 [facility] Comment on above: Performed By: #### L [id number] ####Discharge Planner: LUL HENDERSON ([id number])[facility])[address] [place] [address] MCHC 33.8 % Normal 30.5-36.0 [facility] Comment on above: Performed By: #### L [id number] ####Discharge Planner: LUL HENDERSON ([id number])[facility] ([facility])[address] [place] [address] MCV (RBC) [Entitic vol] 92.2 fL Normal 77.0-99.0 [facility] Comment on above: Performed By: #### L [id number] ####Discharge Planner: LUL HENDERSON ([id number])[facility])[address] [place] [address] Platelet mean volume (Bld) [Entitic vol] 9.5 fL Normal 9.0-12.7 [facility] Comment on above: Performed By: #### L [id number] ####Discharge Planner: LUL HENDERSON ([id number])[facility])[address] [place] [address] Platelets (Bld) [#/Vol] 274 10*3/uL Normal 140-440 [facility] Comment on above: Performed By: #### L [id number] ####Discharge Planner: LUL HENDERSON ([id number])[facility] ([facility])[address] [place] [address] RBC (Bld) [#/Vol] 4.88 10*6/uL Normal 4.40-5.90 [facility] Comment on above: Performed By: #### L [id number] ####Discharge Planner: LUL HENDERSON ([id number])[facility] ([facility])[address] [place] [address] WBC (Bld) [#/Vol] 9.6 10*3/uL Normal 3.6-10.7 [facility] Comment on above: Performed By: #### L [id number] ####Discharge Planner: LUL HENDERSON ([id number])[facility] ([facility])[address] [place] [address] CBC panel Auto (Bld)on 04-26 Erythrocyte distribution width (RBC) [Ratio] 15.1 % High 11.5 - 15.0 % [facility] Hematocrit (Bld) [Volume fraction] 45 % 40.0 - 52.0 % [facility] Hemoglobin (Bld) [Mass/Vol] 15.2 g/dL 13.0 - 18.0 g/dL [facility] Interpretation and review of laboratory results Abnormal [facility] MCH (RBC) [Entitic mass] 31.1 pg 26.0 - 34.0 pg [facility] MCHC (RBC) [Mass/Vol] 33.8 % 30.5 - 36.0 % [facility] MCV (RBC) [Entitic vol] 92.2 fL 77.0 - 99.0 fL [facility] Platelet mean volume (Bld) [Entitic vol] 9.5 fL 9.0 - 12.7 fL [facility] Platelets (Bld) [#/Vol] 274 10*3/uL 140 - 440 10*3/uL [facility] RBC (Bld) [#/Vol] 4.88 10*6/uL 4.40 - 5.9 0 10*6/uL [facility] WBC (Bld) [#/Vol] 9.6 10*3/uL 3.6 - 10.7 10*3/uL [facility] ECG 12-LEADon 04-26-2024 ECG 12-LEAD IMPRESSION: Slow sinus arrhythmia Prolonged AL interval Probable left ventricular hypertrophy Nonspecific T abnormalities, inferior leads Anterior ST elevation, probably due to LVH Electronically Signed On 04-26-2024 14:18:32 EST by Steve Aleman [facility] ECG 12-LEAD IMPRESSION: Sinus rhythm Left ventricular hypertrophy Anterior Q waves, possibly due to LVH Electronically Signed On 04-26-2024 08:06:41 EST by [facility] No Panel InformationOrdered By: Steve Aleman on 04-26-2024 P [place] 20 degrees [facility] Work Phone: AL Interval 229 ms [facility] Work Phone: QRS [place] 39 degrees [facility] Work Phone: QRSD Interval 102 ms [facility] Work Phone: QT Interval 474 ms [facility] Work Phone: QTC Interval 457 ms [facility] Work Phone: T Wave [place] -78 degrees [facility] Work Phone: [facility] Work Phone: No Panel Informationon 04-26 Slow sinus arrhythmi a Prolonged AL interval Probable left ventricular hypertrophy Nonspecific T abnormalities, inferior leads Anterior ST elevation, probably due to LVH Electronically Signed On 04-26-2024 14:18:32 EST by Steve Aleman Steve Dallas MD - 04/26/2024 IMPRESSION: Slow sinus arrhythmia Prolonged AL interval Probable left ventricular hypertrophy Nonspecific T abnormalities, inferior leads Anterior ST elevation, probably due to LVH Electronically Signed On 04-26-2024 14:18:32 EST by Steve Aleman [facility] [employer] P [place] 16 degrees [facility] AL Interval 196 ms [facility] QRS [place] -30 degrees [facility] QRSD Interval 101 ms [facility] QT Interval 436 ms [facility] QTC Interval 449 ms [facility] [employer] T Wave [place] 43 degrees [facility] Sinus rhythm Left ventricular hypertrophy Anterior Q waves, possibly due to LVH Electronically Signed On 04-26-2024 08:06:41 EST by Steve Hammond MD - 04/26/2024 IMPRESSION: Sinus rhythm Left ventricular hypertrophy Anterior Q waves, possibly due to LVH Electronically Signed On 04-26-2024 08:06:41 EST by Steve Aleman [facility] Vital signsOrdered By: Don Aleman on 04-26-2024 Heart rate 56 /min bpm [facility] Work Phone: Vital signson 04-26-2024 Heart rate 64 /min bpm [facility] 30on 04-25-2024 30 Problem: Knowledge Deficit Goal: Patient/family/caregi estefany demonstrates understanding of disease process, treatment plan, medications, and discharge instructions Outcome: Progressing Problem: Potential for Compromised Skin Integrity Goal: Skin Integrity is Maintained or Improved Outcome: Progressing Goal: Nutritional status is improving Outcome: Progressing Problem: Urinary Incontinence Goal: Perineal skin integrity is maintained or improved Outcome: Progressing Normal [facility] BASIC METABOLIC PANELon Anion gap [Moles/Vol] 8 mmol/L Normal 3-13 [facility] Comment on above: Performed By: #### L AB15 ####Discharge Planner: LUL HENDERSON ([phone])[facility])[address] [place] [address] Calcium [Mass/Vol] 7.8 mg/dL Low 8.4-10.4 [facility] Comment on above: Performed By: #### L AB15 ####Discharge Planner: LUL HENDERSON ([phone])[facility] [place] [address] [place] Chloride [Moles/Vol] 108 mmol/L High 98-107 [facility] Comment on above: Performed By: #### L AB15 ####Discharge Planner: LUL HENDERSON ([id number])[facility] [place] [address] [place] CO2 [Moles/Vol] 21 mmol/L Low 22-30 [facility] Comment on above: Performed By: #### L AB15 ####Discharge Planner: LUL HENDERSON ([phone])[facility])[address] [place] [address] Creatinine [Mass/Vol] 0.71 mg/dL Normal 0.66-1.25 [facility] Comment on above: Performed By: #### L AB15 ####Discharge Planner: LUL HENDERSON ([id number])[facility])[address] [place] [address] GLOMERULAR FILTRATION RATE ML/MIN/1.73 SQ M.PREDICTED >90.0 Normal >60.0 [facility] Comment on above: Result Comment: Calc ulation based on the Chronic Kidney Disease Epidemiology Collaboration (CKD-EPI) equation refit without adjustment for race Performed By: #### L AB15 ####Discharge Planner: LUL HENDERSON ([phone])[facility])[address] [place] [address] Glucose [Mass/Vol] 106 mg/dL High 70-100 [facility] Comment on above: Performed By: #### L AB15 ####Discharge Planner: LUL HENDERSON ([phone])[facility])[address] [place] [address] Potassium [Moles/Vol] 3.7 mmol/L Normal 3.5-5.1 [facility] Comment on above: Performed By: #### L AB15 ####Discharge Planner: LUL HENDERSON ([phone])[facility])[address] [place] [address] Sodium [Moles/Vol] 137 mmol/L Normal 135-145 [facility] Comment on above: Performed By: #### L AB15 ####Discharge Planner: LUL HENDERSON ([phone])[facility])[address] [place] [address] Urea nitrogen [Mass/Vol] 17 mg/dL Normal 9-20 [facility] Comment on above: Performed By: #### L AB15 ####Discharge Planner: LUL HENDERSON ([id number])[facility] ([facility])[address] [place] [address] Basic metabolic 1998 panelon 04-25-2024 Anion gap [Moles/Vol] 8 mmol/L 3 - 13 mmol/L [facility] Calcium [Mass/Vol] 7.8 mg/dL Low 8.4 - 10. 4 mg/dL [facility] Chloride [Moles/Vol] 108 mmol/L High 98 - 10 7 mmol/L [facility] CO2 [Moles/Vol] 21 mmol/L Low 22 - 30 mmol/L [facility] Creatinine [Mass/Vol] 0.71 mg/dL 0.66 - 1.25 mg/dL [facility] GFR/1.73 sq M.predicted (S/P/Bld) [Vol rate/Area] - PINF [facility] Comment on above: Calculation based on the Chronic Kidney Disease Epidemiology Collaboration (CKD-EPI) equation refit without adjustment for race Glucose [Mass/Vol] 106 mg/dL High 70 - 100 mg/dL [facility] Interpretation and review of laboratory results Abnormal [facility] Potassium [Moles/Vol] 3.7 mmol/L 3.5 - 5.1 mmol/L [facility] Sodium [Moles/Vol] 137 mmol/L 135 - 145 mmol/L [facility] Urea nitrogen [Mass/Vol] 17 mg/dL 9 - 20 mg/dL [facility] CBC (HEMOGRAM)on 04-25-2024 Erythrocyte distribution width (RBC) [Ratio] 15.2 % High 11.5-15.0 [facility] Comment on above: Performed By: #### L [id number] ####Discharge Planner: LUL HENDERSON ([id number])[facility] ([facility])[address] [place] [address] Hematocrit (Bld) [Volume fraction] 41.2 % Normal 40.0-52.0 [facility] Comment on above: Performed By: #### L AB294 ####Discharge Planner: LUL HENDERSON ([phone])[facility] ([facility])[address] [place] [address] Hemoglobin (Bld) [Mass/Vol] 14.0 g/dL Normal 13.0-18.0 [facility] Comment on above: Performed By: #### L AB294 ####Discharge Planner: LUL HENDERSON ([phone])[facility])[address] [place] [address] MCH (RBC) [Entitic mass] 31.3 pg Normal 26.0-34.0 [facility] Comment on above: Performed By: #### L AB294 ####Discharge Planner: LUL HENDERSON ([phone])[facility])[address] [place] [address] MCHC 34.0 % Normal 30.5-36.0 [facility] Comment on above: Performed By: #### L AB294 ####Discharge Planner: LUL HENDERSON ([phone])[facility])[address] [place] [address] MCV (RBC) [Entitic vol] 92.2 fL Normal 77.0-99.0 [facility] Comment on above: Performed By: #### L AB294 ####Discharge Planner: LUL HENDERSON ([id number])[facility])[address] [place] [address] Platelet mean volume (Bld) [Entitic vol] 9.4 fL Normal 9.0-12.7 [facility] Comment on above: Performed By: #### L AB294 ####Discharge Planner: LUL HENDERSON ([phone])[facility])[address] [place] [address] Platelets (Bld) [#/Vol] 253 10*3/uL Normal 140-440 [facility] Comment on above: Performed By: #### L AB294 ####Discharge Planner: LUL HENDERSON ([id number])[facility])[address] [place] [address] RBC (Bld) [#/Vol] 4.47 10*6/uL Normal 4.40-5.90 [facility] Comment on above: Performed By: #### L AB294 ####Discharge Planner: LUL HENDERSON ([id number])[facility] ([facility])[address] [place] [address] WBC (Bld) [#/Vol] 7.0 10*3/uL Normal 3.6-10.7 [facility] Comment on above: Performed By: #### L [id number] ####Discharge Planner: LUL HENDERSON ([id number])[facility] ([facility])[address] [place] [address] CBC panel Auto (Bld)on 04-25 Erythrocyte distribution width (RBC) [Ratio] 15.2 % High 11.5 - 15.0 % [facility] Hematocrit (Bld) [Volume fraction] 41.2 % 40.0 - 52.0 % [facility] Hemoglobin (Bld) [Mass/Vol] 14 g/dL 13.0 - 18.0 g/dL [facility] Interpretation and review of laboratory results Abnormal [facility] MCH (RBC) [Entitic mass] 31.3 pg 26.0 - 34.0 pg [facility] MCHC (RBC) [Mass/Vol] 34 % 30.5 - 36.0 % [facility] MCV (RBC) [Entitic vol] 92.2 fL 77.0 - 99.0 fL [facility] Platelet mean volume (Bld) [Entitic vol] 9.4 fL 9.0 - 12.7 fL [facility] Platelets (Bld) [#/Vol] 253 10*3/uL 140 - 440 10*3/uL [facility] RBC (Bld) [#/Vol] 4.47 10*6/uL 4.40 - 5.9 0 10*6/uL [facility] WBC (Bld) [#/Vol] 7 10*3/uL 3.6 - 10.7 10*3/uL [facility] Cardiac catheterization stud yon 04-25-2024 Successful TAVR with a 29 mm Edward Maria Isabel S3 Ultra Valve, right right transfemoral approach TAVR Procedural Report Interventional Cardiologists: -Beck Santillan MD -Ryan Richards MD (Fellow) Cardiothoracic Surgeon: -Raffy Appiah DO Procedure: 1. A 29 mm MARIA ISABEL S3 VALVE IMPLANTATION. 2. TRANSFEMORAL TRANSCATHETER AORTIC VALVE REPLACEMENT. Preoperative Diagnosis: Severe and symptomatic aortic stenosis. Postoperative Diagnosis: Severe aortic stenosis. Anesthesia: Conscious Sedation History of Present Illness: This is a very pleasant 78 y.o. male with a history of severe and symptomatic aortic stenosis. his case was discussed in our multidisciplinary valve conference and was felt to be of appropriate candidacy for TAVR. The pros, cons, risks, benefits, and alternatives of transcatheter aortic valve replacement were reviewed with the patient, and questions were answered, he provided informed consent and wished to proceed with the procedure. Description of Procedure: The patient was brought to the operating suite by anesthesia. The patient was placed under conscious sedation. The patient was then cleaned, prepped and draped in the normal sterile manner. Access was then gained in the right femoral artery, right radial artery, and the right femoral vein. Via the right femoral vein, a 6 British sheath was placed and temporary pacing wire was placed into the RV apex with appropriate capture, in addition sterile tubing was attached and given the anesthesia for central access. Via right radial artery, a 6-British sheath was placed and the pigtail catheter was placed into the aortic annulus with confirmation the implant angle. Via the right femoral artery, a 6-British sheath was placed. The patient was then heparinized. Next, two Perclose devices were used using the pre-close strategy. An Amplatz Super Stiff wire was then placed through the second Perclose into the descending aorta. Then, a 16-British Maria Isabel E-sheath was introduced over the wire into the descending aorta. The sheath was then flushed. Next, an AL1 catheter and a straight wire were used to cross the aortic valve through the e- sheath. The straight wire was then removed and an Amplatz extra stiff wire (formed into a curve) was placed into the LV apex. Next, the AL1 catheter was removed. The valve was pre dilated with a 24 mm balloon. Next a 29 mm Maria Isabel S3 valve was then advanced through the sheath into the descending aorta.The valve was then mounted on the balloon, the delivery catheter was flexed and advanced around the aortic arch and across the aortic annulus. The valve was then deployed under rapid pacing. Confirmation of an appropriate implant position and appropriately functioning valve was done using TTE. There was mild aortic regurgitation so the valve was post dilated up to nominal pressure. There was trace aortic regurgitation. Next, the delivery catheter, extra stiff wire, and large sheath were removed and the Perclose devices were used for hemostasis. A Perclose was used for hemostasis of the additional arterial site. Manual pressure was used for hemostasis of the femoral venous access site. Overall, the patient tolerated the procedure well with minimal blood loss. No immediate complications. The patient will return to the Cardiac Care unit for continued monitoring. It was a pleasure taking care of your patient while hospitalized at [facility]. I will continue to follow along while hospitalized. Please do not hesitate to call with any questions. [facility] Laboratory - Coagulationon 1 06-26-2023 PT Coag (Bld) [Time] 12.8 s High 9.0 - 12.0 s [facility] No Panel Informationon 04-25 Interpretation and review of laboratory results Abnormal [facility] POCT ACT 368 High [facility] Performed by: [facility], [address] [place] [address] CLIA ID: [id number] [facility] Blood Expiration Date S [facility] Crossmatch interpretation COMP [facility] Dispense Status Crossmatch [facility] Product Blood Type 6200 [facility] PRODUCT CODE [id number] [facility] Unit ABO A [facility] Unit Number [id number] [facility] alth Unit Number [id number] [facility] alth Unit RH Positive [facility] Unit Volume 300 mL [facility] Op Noteon 04-25-2024 Op Note CARDIOTHORACIC SURGERY--OPERATIVE NOTE Date: 04/25/24 Preoperative diagnosis: Severe symptomatic aortic stenosis Chronic diastolic congestive heart failure Frailty Postoperative diagnosis: Severe symptomatic aortic stenosis Chronic diastolic congestive heart failure Frailty Surgeon: Jaskaran Appiah DO [employer]: Beck Santillan MD Linux Kernel Engineer: Obi Richards MD Procedure: Transcatheter aortic valve replacement with 29 mm MARIA ISABEL S3 valve Balloon aortic valvuloplasty Transthoracic echocardiogram Complications: None Anesthesia: Local with conscious sedation Indications for procedure: The patient is a 78 year-old male with severe, symptomatic aortic valve stenosis. The case was reviewed in the valve clinic in the valve conference and the patient was deemed a candidate for TAVR. Procedure in detail: The patient was positioned supine on the operating room table. The patient was prepped and draped in usual sterile fashion. Vascular access was gained in the right common femoral artery, right radial artery and right common femoral vein. Systemic heparin 100 mg/kg was given. Please refer to the cardiology dictation for placement of wires and sheaths. Temporary ventricular pacing wire was placed into the right ventricle using fluoroscopic guidance. After determination of the deployment angle the expandable sheath was placed through the right femoral artery. The valve was crossed with a straight wire and exchanged for an Amplatz Extra Stiff wire. A 24 mm balloon was passed across the valve and inflated. The valve was introduced through the E sheath into the descending thoracic aorta where it was mounted on the balloon. This was then passed across the aortic arch and the aortic valve annulus. The valve was deployed under rapid ventricular pacing. It appeared to be well seated. Echocardiogram confirmed good position, mild paravalvular leak, and appropriate gradients. The valve was post-dilated with an extra milliliter of fluid which resolved the paravalvular leak to a trivial level. The deployment device was removed. Protamine was then given to reverse the systemic effects of heparin and the patient was subsequently decannulated and transferred stable to the recovery room. She tolerated the procedure well. Disposition: Stable to ICU Jaskaran Appiah DO FACS Cardiothoracic Surgery Normal [facility] PROTHROMBIN TIMEon 4 INR Coag (PPP) [Relative time] 1.1 {INR} Normal 0.9-1.1 [facility] Comment on above: Order Comment: If pa tient on coumadin within 4 days prior. Result Comment: Dov mmended Anticoagulant Therapy: SEE BELOW ----- INR of 2.0 - 3.0 : - Prophylaxis of Venous Thrombosis (high-risk surgery) - Treatment of Venous Thrombosis - Treatment of Pulmonary Embolism (Includes tissue heart valves, Acute Myocardial Infarction to prevent systemic embolism, Valvular Heart Disease, and Atrial Fibrillation) ----- INR of 2.5 - 3.5 : - Mechanical Prosthetic Valves (high risk) - If oral anticoagulant therapy is used to prevent Myocardial Infarction Performed By: #### L [id number] ####Discharge Planner: LUL HENDERSON ([id number])[facility] ([facility] PT Coag (PPP) [Time] 12.8 s High 9.0-12.0 [facility] Comment on above: Order Comment: If pa tient on coumadin within 4 days prior. Performed By: #### L [id number] ####Discharge Planner: LUL HENDERSON ([id number])[facility] ([facility])[address] [place] [address] PT Coag (Bld) [Time]on 04-25 INR Coag (PPP) [Relative time] 1.1 {INR} 0.9 - 1.1 [facility] Comment on above: Recommended Anticoag ulant Therapy: SEE BELOW ----- INR of 2.0 - 3.0 : - Prophylaxis of Venous Thrombosis (high-risk surgery) - Treatment of Venous Thrombosis - Treatment of Pulmonary Embolism (Includes tissue heart valves, Acute Myocardial Infarction to prevent systemic embolism, Valvular Heart Disease, and Atrial Fibrillation) ----- INR of 2.5 - 3.5 : - Mechanical Prosthetic Valves (high risk) - If oral anticoagulant therapy is used to prevent Myocardial Infarction Interpretation and review of laboratory results Abnormal [facility] US Heart Transthoracicon Ao Root Index 1.94 cm/m2 [facility] h Aortic Root 3.4 cm [facility] AV Area by Peak Velocity 1.3 cm2 [facility] AV Area by Peak Velocity 1.2 cm2 [facility] AV Area by VTI 1.4 cm2 [facility] AV AT 83.73 ms [facility] AV Mean Gradient 7 mmHg [facility] alth AV Mean Velocity 1.2 m/s [facility] alth AV Peak Gradient 14 mmHg [facility] alth AV Peak Gradient 17 mmHg [facility] alth AV Peak Velocity 2.1 m/s [facility] alth AV Velocity Ratio 0.38 [facility] ealth AV VTI 42 cm [facility] NADEGE/BSA VTI 0.8 cm2/m2 [facility] E/E' Lateral 12.43 [facility] E/E' Ratio (Averaged) 17.09 [facility] E/E' Septal 21.75 [facility] EF BP 61 % 55 - 100 % [facility] Est. RA Pressure 3 mmHg [facility] alth Fractional Shortening 2D 31 % 28 - 44 % [facility] Global Longitudinal Strain -15.4 % [facility] Interpretation and review of laboratory results Abnormal [facility] IVC Diameter 1.8 cm [facility] IVSd 1.4 cm Abnormal 0.6 - 1.0 cm [facility] LA Diameter 3.5 cm [facility] LA Size Index 2 cm/m2 [facility] h LA Volume 2C 51 mL 18 - 58 mL [facility] LA Volume 4C 59 mL Abnormal 18 - 58 mL [facility] LA Volume A/L 59 mL [facility] h LA Volume BP 56 mL 18 - 58 mL [facility] LA Volume Index 2C 29 mL/m2 16 - 34 mL/m2 [facility] LA Volume Index 4C 34 mL/m2 16 - 34 mL/m2 [facility] LA Volume Index A/L 34 mL/m2 16 - 34 mL/m2 [facility] LA Volume Index BP 32 ml/m2 16 - 34 ml/m2 [facility] LA/AO Root Ratio 1.03 [facility] alth LV E' Lateral Velocity 7 cm/s [facility] LV E' Septal Velocity 4 cm/s [facility] LV EDV A2C 107 mL [facility] LV EDV A4C 129 mL [facility] LV EDV BP 119 mL 67 - 155 mL [facility] LV EDV Index A2C 61 mL/m2 [facility] alth LV EDV Index A4C 74 mL/m2 [facility] LV EDV Index BP 68 mL/m2 [facility] LV Ejection Fraction A2C 63 % [facility] LV Ejection Fraction A4C 61 % [facility] LV ESV A2C 40 mL [facility] LV ESV A4C 50 mL [facility] LV ESV BP 46 mL 22 - 58 mL [facility] LV ESV Index A2C 23 mL/m2 [facility] alth LV ESV Index A4C 29 mL/m2 [facility] alth LV ESV Index BP 26 mL/m2 [facility] lt LV IVRT 51.4 ms [facility] LV Mass 2D 212.3 g 88 - 224 g [facility] LV Mass 2D Index 121.3 g/m2 Abnormal 49 - 115 g/m2 [facility] LV RWT Ratio 0.62 [facility] LVIDd 4.2 cm 4.2 - 5.9 cm [facility] LVIDd Index 2.4 cm/m2 [facility] LVIDs 2.9 cm [facility] LVIDs Index 1.66 cm/m2 [facility] LVOT Area 3.1 cm2 [facility] LVOT Cardiac Output 3.6 liter/minute [facility] LVOT Diameter 2 cm [facility] LVOT Mean Gradient 1 mmHg [facility] LVOT Peak Gradient 3 mmHg [facility] LVOT Peak Velocity 0.8 m/s [facility] LVOT Stroke Volume Index 35.5 mL/m2 [facility] LVOT SV 62.2 ml [facility] LVOT VTI 19.8 cm [facility] LVOT:AV VTI Index 0.47 [facility] ealth LVPWd 1.3 cm Abnormal 0.6 - 1.0 cm [facility] MV A Velocity 0.83 m/s [facility] Area by PHT 2 cm2 [facility] th MV Area by VTI 1.3 cm2 [facility] th MV E Velocity 0.87 m/s [facility] h MV E Wave Deceleration Time 328.3 ms [facility] MV E/A 1.05 [facility] MV Max Velocity 1 m/s [facility] Mean Gradient 2 mmHg [facility] alth MV Mean Velocity 0.6 m/s [facility] alth MV Peak Gradient 4 mmHg [facility] alth MV PHT 111.8 ms [facility] MV VTI 46.7 cm [facility] MV:LVOT VTI Index 2.36 [facility] ealth RA Area 4C 22.4 mL [facility] RA Area 4C 21.2 mL [facility] RV Basal Dimension 3.5 cm [facility] RV Free Wall Peak S' 11 cm/s [facility] RV Longitudinal Dimension 7.6 cm [facility] RV Mid Dimension 2.1 cm [facility] alth RVSP 7 mmHg [facility] TAPSE 1.7 cm 1.7 cm [facility] TR Max Velocity 1.02 m/s [facility] TR Peak Gradient 4 mmHg [facility] alth Left Ventricle: Left ventricle size is normal. Moderately increased wall thickness. Normal left ventricular systolic function. EF by 2D [employer]psons Biplane is 61%. Global longitudinal strain is reduced with a value of -15.4%. Normal wall motion. Right Ventricle: Right ventricle size is normal. Normal systolic function. Aortic Valve: Eisenberg Maria Isabel 3 Ultra bioprosthetic aortic valve with a size of 29mm mm. AV mean gradient is 7 mmHg. No cusp thickening. No cusp calcification. No regurgitation. Mild (1+) paravalvular regurgitation. No stenosis. AV mean gradient is 7 mmHg. AV peak velocity is 2.1 m/s. LVOT:AV VTI Index is 0.47. AV area by continuity VTI is 1.4 cm2. Left Ventricle Left ventricle size is normal. Moderately increased wall thickness. Normal left ventricular systolic function. EF by 2D [employer]ons Biplane is 61%. Global longitudinal strain is reduced with a value of -15.4%. Normal wall motion. Right Ventricle Right ventricle size is normal. Normal systolic function. Left Atrium Left atrium size is normal (LA volume index 16-34 mL/m2).LA Vol Index A/L is 34 mL/m2. Right Atrium Right atrium size is normal. IVC/SVC IVC size is normal. IVC diameter is normal and decreases greater than 50% during inspiration; therefore the estimated right atrial pressure is normal (~3 mmHg). Mitral Valve Valve structure is normal. Mildly calcified leaflets. Annular calcification. Mild (1+) regurgitation. No stenosis noted. Tricuspid Valve Not well visualized. Trace regurgitation. RVSP may be underestimated in the setting of poor visualization of TR jet. RVSP is 7 mmHg. Aortic Valve Eisenberg Maria Isabel 3 Ultra bioprosthetic aortic valve with a size of 29mm mm. AV mean gradient is 7 mmHg. No cusp thickening. No cusp calcification. No regurgitation. Mild (1+) paravalvular regurgitation. No stenosis. AV mean gradient is 7 mmHg. AV peak velocity is 2.1 m/s. LVOT:AV VTI Index is 0.47. AV area by continuity VTI is 1.4 cm2. Pulmonic Valve The pulmonic valve visualization is suboptimal but appears to be functioning normally. Trace regurgitation. Ascending Aorta Normal sized sinuses of Valsalva and ascending aorta. Pericardium No pericardial effusion. Septum No interatrial shunt visualized on color Doppler. Pulmonary Artery Pulmonary artery was not well visualized. Study Details Image quality: adequate. Additional technique includes myocardial strain. Blood pressure: 122/78 mmHg. The underlying ECG rhythm was sinus rhythm. Technical qualifiers: Technically difficult study and procedure performed with the patient in a supine position. No contrast was given. [facility] Left Ventricle: Left ventricle size is normal. Mildly increased wall thickness. Normal left ventricular systolic function. EF by 2D Simpsons Biplane is 69%. Normal wall motion. Right Ventricle: Right ventricle size is normal. Unable to assess systolic function. Aortic Valve: Eisenberg Maria Isabel 3 Ultra bioprosthetic aortic valve with a size of 29 mm. AV mean gradient is 5 mmHg. No regurgitation. Mild (1+) paravalvular regurgitation. No stenosis. AV mean gradient is 5 mmHg. AV peak velocity is 1.5 m/s. LVOT:AV VTI Index is 0.85. AV area by continuity VTI is 3.1 cm2. Aorta: Mildly dilated sinuses of Valsalva. Left Ventricle Left ventricle size is normal. Mildly increased wall thickness. Normal left ventricular systolic function. EF by 2D Simpsons Biplane is 69%. Normal wall motion. Right Ventricle Right ventricle size is normal. Unable to assess systolic function. Left Atrium Not assessed. Right Atrium Not well visualized. Mitral Valve Mildly calcified leaflets. Moderate annular calcification (posterior). Mild (1+) regurgitation. Tricuspid Valve Valve structure is normal. Trace regurgitation. Aortic Valve Eisenberg Maria Isabel 3 Ultra bioprosthetic aortic valve with a size of 29 mm. AV mean gradient is 5 mmHg. No regurgitation. Mild (1+) paravalvular regurgitation. No stenosis. AV mean gradient is 5 mmHg. AV peak velocity is 1.5 m/s. LVOT:AV VTI Index is 0.85. AV area by continuity VTI is 3.1 cm2. Pulmonic Valve The pulmonic valve visualization is suboptimal but appears to be functioning normally. Trace regurgitation. Ascending Aorta Mildly dilated sinuses of Valsalva. Pericardium No pericardial effusion. Septum Interatrial septum was not assessed. Pulmonary Artery Pulmonary artery was not well visualized. Study Details Image quality: adequate. Heart rate: 60 bpm. Blood pressure: 150/92 mmHg. Echo performed in conjunction with TAVR procedure. No contrast was given. Structural Heart Pre Procedure Findings Severe aortic valve stenosis. AV Area (Pre-TAVR) is 0.8 cm2. AV Peak Velocity (Pre-TAVR) is 4.1 m/s. AV Mean Gradient (Pre-TAVR) is 41 mmHg. CV CPACS US Heart TransthoracicOrdere d By: Jamari Leon on 04-25-2024 Ao Root Index 2.11 cm/m2 [facility] Work Phone: Aortic Root 3.7 cm [facility] Work Phone: Ascending Aorta 3.2 cm [facility] Work Phone: Ascending Aorta Index 1.83 cm/m2 [facility] Work Phone: AV Area (Pre-TAVR) 0.8 cm2 [facility] Work Phone: AV Area by Peak Velocity 2.4 cm2 [facility] Work Phone: AV Area by VTI 3.1 cm2 [facility] Work Phone: AV Mean Gradient 5 mmHg [facility] Work Phone: AV Mean Gradient (Pre-TAVR) 41 mmHg [facility] Work Phone: AV Mean Velocity 1 m/s [facility] Work Phone: AV Peak Gradient 9 mmHg [facility] Work Phone: AV Peak Gradient (Pre-TAVR) 68 mmHg [facility] Work Phone: AV Peak Velocity 1.5 m/s [facility] Work Phone: AV Peak Velocity (Pre-TAVR) 4.1 m/s [facility] Work Phone: AV Velocity Ratio 0.67 [facility] Work Phone: AV VTI 30.3 cm [facility] Work Phone: NADEGE/BSA Peak Velocity 1.4 cm2/m2 [facility] Work Phone: NADEGE/BSA VTI 1.8 cm2/m2 [facility] Work Phone: EF BP 69 % 55 - 100 % [facility] Work Phone: Fractional Shortening 2D 32 % 28 - 44 % [facility] Work Phone: Interpretation and review of laboratory results Abnormal [facility] Work Phone: IVSd 1.2 cm Abnormal 0.6 - 1.0 cm [facility] Work Phone: LV EDV A2C 113 mL [facility] Work Phone: LV EDV A4C 133 mL [facility] Work Phone: LV EDV BP 122 mL 67 - 155 mL [facility] Work Phone: LV EDV Index A2C 65 mL/m2 [facility] Work Phone: LV EDV Index A4C 76 mL/m2 [facility] Work Phone: LV EDV Index BP 70 mL/m2 [facility] Work Phone: LV Ejection Fraction A2C 70 % [facility] Work Phone: LV Ejection Fraction A4C 69 % [facility] Work Phone: LV ESV A2C 34 mL [facility] Work Phone: LV ESV A4C 42 mL [facility] Work Phone: LV ESV BP 38 mL 22 - 58 mL [facility] Work Phone: LV ESV Index A2C 19 mL/m2 [facility] Work Phone: LV ESV Index A4C 24 mL/m2 [facility] Work Phone: LV ESV Index BP 22 mL/m2 [facility] Work Phone: LV Mass 2D 242 g Abnormal 88 - 224 g [facility] Work Phone: LV Mass 2D Index 138.3 g/m2 Abnormal 49 - 115 g/m2 [facility] Work Phone: LV RWT Ratio 0.42 [facility] Work Phone: LVIDd 5.3 cm 4.2 - 5.9 cm [facility] Work Phone: LVIDd Index 3.03 cm/m2 [facility] Work Phone: LVIDs 3.6 cm [facility] Work Phone: LVIDs Index 2.06 cm/m2 [facility] Work Phone: LVOT Area 3.8 cm2 [facility] Work Phone: LVOT Cardiac Output 6 liter/minute [facility] Work Phone: LVOT Diameter 2.2 cm [facility] Work Phone: LVOT Mean Gradient 2 mmHg [facility] [employer] Work Phone: LVOT Peak Gradient 4 mmHg [facility] [employer] Work Phone: LVOT Peak Velocity 1 m/s [facility] [employer] Work Phone: LVOT Stroke Volume Index 55.8 mL/m2 [place] [employer] Work Phone: LVOT SV 97.6 ml [facility] [employer] Work Phone: LVOT VTI 25.7 cm [facility] [employer] Work Phone: LVOT:AV VTI Index 0.85 [facility] [employer] Work Phone: LVPWd 1.1 cm Abnormal 0.6 - 1.0 cm [facility] [employer] Work Phone: [facility] [employer] Work Phone: 36on 04-15-2024 36 Requested on Snapboard Normal [facility] 36on 04-13-2024 36 On all 3 calendars and no auth req per Medicare. Just waiting on case request to put on Snapboard. Normal [facility] CT ANGIOGRAM TAVRon 04-13-[address] ANGIOGRAM TAVR Patient Name: HANG KEENAN : 1945 [facility]#: [id number] Exam Date/Time: 04/12/2024 10:22 Procedure: CT ANGIOGRAM TAVR Ordering Provider: RESENDIZ MEGGAN Reason For Exam: Aortic valve replacement (TAVR), pre-op eval [facility] Cardiovascular CTA CLINICAL INDICATION: 78-year-old male with severe aortic stenosis, being evaluated for transcatheter aortic valve implantation. Computed tomography of the heart, thoracoabdominal aorta, and iliofemoral system was performed using a [employer] Aquilion One 320 detector scanner. Images were reconstructed and analyzed on an advanced post-processing 3D workstation. Dose reduction was employed with automated exposure control. Contrast: 100 mL Isovue-370 Total DLP: 967 mGy-cm Study Quality: Good Extracardiac Findings: No focal consolidation is seen within the lungs. There is no pleural effusion or pneumothorax. No suspicious pulmonary nodules are identified. No lymphadenopathy is seen within the chest. Cholelithiasis is noted. There is a 6 cm cyst arising from the upper pole of the right kidney. Nonobstructive left renal calculi are present. The spleen, pancreas, and adrenal glands appear within normal limits. There is no lymphadenopathy within the abdomen or pelvis. The urinary bladder is somewhat irregular in contour, with small diverticula suspected arising from the anterior aspect of the bladder. The prostate is enlarged. There is a small hiatal hernia. Mild diverticulosis of the distal colon is noted. There is no evidence of diverticulitis. Small bowel loops do not appear abnormally dilated or thickened. No free air or free fluid is seen. No lytic or blastic lesions are seen on the bone windows. Cardiac Chambers: The pericardium is unremarkable. The left and right ventricles are normal in size. Mild concentric hypertrophy of the left ventricle is noted. The left atrium is moderately dilated. The left atrial appendage is normal in appearance. The right atrium is moderately dilated. Coronary Arteries: The coronaries have normal origins. There is a pattern of right coronary dominance. There is evidence of coronary atherosclerosis. The present study was not optimized for evaluation of the coronary arteries. Mitral Valve: The mitral annulus has mild calcification, without significant extension into the LVOT. The anterior mitral leaflet is free of the LVOT during systole. Aortic Valve: The aortic valve is tricuspid and moderately calcified. Aortic valve area by planimetry at 35% R-R Interval: 0.97 cm2 Predicted deployment angle (3-cusp view): JAPANESE 16, CAU 8 Aortic Annulus: Dimensions: 3.0 x 2.5 cm Area: 5.3 cm2 Perimeter: 84 mm Left coronary height: 12 mm Right coronary height: 22 mm Aorta and Iliofemoral System Note: All vascular measurements are minimal luminal diameters using a centerline technique. Aortic Root and Thoracic Aorta: Sinuses: 3.9 x 3.7 cm Sinotubular junction: 3.2 x 3.2 cm Mid ascending Aorta: 3.7 x 3.5 cm Abdominal Aorta: Infrarenal: 17 mm Bifurcation: 16 mm Right Iliac System: Calcification: Minimal. Tortuosity: Mild. RCIA: 11 mm REIA: 8 mm RCFA: 8 mm Left Iliac System: Calcification: Minimal. Tortuosity: Mild. LCIA: 10 mm CINDI: 8 mm LCFA: 8 mm IMPRESSION: Aortic stenosis, with descriptive anatomy and annular / aortic root measurements as detailed above. Iliofemoral system as detailed above. Report Dictated on Electronically Signed By: Jamari Williamson MD Electronically Signed Date/Time: 04/13/2024 11:29 AM EST Normal [facility] BLOOD TYPE AND SCREEN GELon 04-12-2024 ABO GROUPING A Normal [facility] Comment on above: Performed By: #### L [id number] ####Discharge Planner: LUL HENDERSON ([id number])[facility] ([facility])[address] [place] [address] RH TYPE IN BLOOD Positive Normal [facility] Comment on above: Performed By: #### L [id number] ####Discharge Planner: LUL HENDERSON ([id number])[facility] ([facility])[address] [place] [address] CBC WITH AUTO DIFFERENTIALon 04-12-2024 Basophils (Bld) [#/Vol] 0.1 10*3/uL Normal 0.0-0.2 [facility] Comment on above: Performed By: #### L [id number] ####Discharge Planner: LUL HENDERSON ([id number])[facility] ([facility])[address] [place] [address] Basophils/100 WBC (Bld) 1.0 % Normal 0.0-2.0 [facility] Comment on above: Performed By: #### L [id number] ####Discharge Planner: LUL HENDERSON ([id number])[facility] ([facility])[address] [place] [address] Eosinophils (Bld) [#/Vol] 0.3 10*3/uL Normal 0.0-0.5 [facility] Comment on above: Performed By: #### L [id number] ####Discharge Planner: LUL HENDERSON ([id number])[facility] ([facility])[address] [place] [address] Eosinophils/100 WBC (Bld) 4.1 % Normal 0.0-6.0 [facility] Comment on above: Performed By: #### L [id number] ####Discharge Planner: LUL HENDESRON ([id number])[address] Erythrocyte distribution width (RBC) [Ratio] 15.6 % High 11.5-15.0 [facility] Comment on above: Performed By: #### L [id number] ####Discharge Planner: LUL HENDERSON ([id number])[address] Hematocrit (Bld) [Volume fraction] 46.1 % Normal 40.0-52.0 [facility] Comment on above: Performed By: #### L [id number] ####Discharge Planner: LUL HENDERSON ([id number])[address] Hemoglobin (Bld) [Mass/Vol] 15.8 g/dL Normal 13.0-18.0 [facility] Comment on above: Performed By: #### L [id number] ####Discharge Planner: LUL HENDERSON ([id number])[address] IMMATURE GRANS % 0.5 % Normal 0.0-2.0 [facility] Comment on above: Performed By: #### L [id number] ####Discharge Planner: LUL HENDERSON ([id number])[address] IMMATURE GRANS ABSOLUTE 0.0 10*3/uL Normal <0.1 [facility] Comment on above: Performed By: #### L [id number] ####Discharge Planner: LUL HENDERSON ([id number])[address] Lymphocytes (Bld) [#/Vol] 1.2 10*3/uL Normal 1.0-4.3 [facility] Comment on above: Performed By: #### L [id number] ####Discharge Planner: LUL HENDERSON ([id number])[facility])[address] [place] [address] Lymphocytes/100 WBC (Bld) 15.1 % Normal 15.0-45.0 [facility] Comment on above: Performed By: #### L [id number] ####Discharge Planner: LUL HENDERSON ([id number])[facility])[address] [place] [address] MCH (RBC) [Entitic mass] 31.2 pg Normal 26.0-34.0 [facility] Comment on above: Performed By: #### L [id number] ####Discharge Planner: LUL HENDERSON ([id number])[facility])[address] [place] [address] MCHC 34.3 % Normal 30.5-36.0 [facility] Comment on above: Performed By: #### L [id number] ####Discharge Planner: LUL HENDERSON ([id number])[facility])[address] [place] [address] MCV (RBC) [Entitic vol] 90.9 fL Normal 77.0-99.0 [facility] Comment on above: Performed By: #### L [id number] ####Discharge Planner: LUL HENDERSON ([id number])[facility])[address] [place] [address] Monocytes (Bld) [#/Vol] 0.9 10*3/uL Normal 0.0-0.9 [facility] Comment on above: Performed By: #### L [id number] ####Discharge Planner: LUL HENDERSON ([id number])[facility])[address] [place] [address] Monocytes/100 WBC (Bld) 10.8 % Normal 5.0-13.0 [facility] Comment on above: Performed By: #### L [id number] ####Discharge Planner: LLU HENDERSON ([id number])[facility])[address] [place] [address] NEUTROPHILS ABSOLUTE 5.6 10*3/uL Normal 1.8-7.5 [facility] Comment on above: Performed By: #### L [id number] ####Discharge Planner: LUL HENDERSON ([id number])[facility] ([facility])[address] [place] [address] Neutrophils/100 WBC (Bld) 68.5 % Normal 38.0-82.0 [facility] Comment on above: Performed By: #### L [id number] ####Discharge Planner: LUL HENDERSON ([id number])[facility] ([facility])[address] [place] [address] NRBC 0.0 /100 WBCs Normal 0.0-2.0 [facility] Comment on above: Performed By: #### L [id number] ####Discharge Planner: LUL HENDERSON ([id number])[facility] ([facility])[address] [place] [address] Platelet mean volume (Bld) [Entitic vol] 9.7 fL Normal 9.0-12.7 [facility] Comment on above: Performed By: #### L [id number] ####Discharge Planner: LUL HENDERSON ([id number])[facility] ([facility])[address] [place] [address] [place] Platelets (Bld) [#/Vol] 346 10*3/uL Normal 140-440 [facility] Comment on above: Performed By: #### L [id number] ####Discharge Planner: LUL HENDERSON ([id number])[facility] ([facility])[address] [place] [address] [place] RBC (Bld) [#/Vol] 5.07 10*6/uL Normal 4.40-5.90 [facility] Comment on above: Performed By: #### L [id number] ####Discharge Planner: LUL HENDERSON ([id number])[facility] ([facility])[address] [place] [address] [place] WBC (Bld) [#/Vol] 8.2 10*3/uL Normal 3.6-10.7 [facility] Comment on above: Performed By: #### L [id number] ####Discharge Planner: LUL HENDRESON ([id number])[facility] ([facility])[address] [place] [address] COMPREHENSIVE METABOLIC PANE Fab 04-12-2024 Albumin [Mass/Vol] 4.4 g/dL Normal 3.5-5.0 [facility] Comment on above: Performed By: #### L [id number] ####Discharge Planner: LUL HENDERSON ([id number])[facility] ([facility])[address] [place] [address] ALP [Catalytic activity/Vol] 86 U/L Normal 38-126 [facility] Comment on above: Performed By: #### L [id number] ####Discharge Planner: LUL HENDERSON ([id number])[facility] ([facility])[address] [place] [address] ALT [Catalytic activity/Vol] 23 U/L Normal 0-49 [facility] Comment on above: Performed By: #### L [id number] ####Discharge Planner: LUL HENDERSON ([id number])[facility] ([facility])[address] [place] [address] Anion gap [Moles/Vol] 10 mmol/L Normal 3-13 [facility] Comment on above: Performed By: #### L [id number] ####Discharge Planner: LUL HENDERSON ([id number])[facility] ([facility])[address] [place] [address] AST [Catalytic activity/Vol] 38 U/L Normal 15-46 [facility] Comment on above: Performed By: #### L [id number] ####Discharge Planner: LUL HENDERSON ([id number])[facility] ([facility])[address] [place] [address] Bilirubin [Mass/Vol] 1.0 mg/dL Normal 0.2-1.3 [facility] Comment on above: Performed By: #### L [id number] ####Discharge Planner: LUL HENDERSON ([id number])[facility] ([facility])[address] [place] [address] Calcium [Mass/Vol] 9.3 mg/dL Normal 8.4-10.4 [facility] Comment on above: Performed By: #### L [id number] ####Discharge Planner: LUL HENDERSON ([id number])[facility] [place] [address] Chloride [Moles/Vol] 103 mmol/L Normal 98-107 [facility] Comment on above: Performed By: #### L [id number] ####Discharge Planner: LUL HENDERSON ([id number])[facility] [place] [address] CO2 [Moles/Vol] 21 mmol/L Low 22-30 [facility] Comment on above: Performed By: #### L [id number] ####Discharge Planner: LUL HENDERSON ([id number])[facility] ([facility])[address] [place] [address] Creatinine [Mass/Vol] 0.91 mg/dL Normal 0.66-1.25 [facility] Comment on above: Performed By: #### L [id number] ####Discharge Planner: LUL HENDERSON ([id number])[facility] ([facility])[address] [place] [address] GLOMERULAR FILTRATION RATE ML/MIN/1.73 SQ M.PREDICTED 85.2 mL/min/1.73m*2 Normal >60.0 [facility] Comment on above: Result Comment: Calc ulation based on the Chronic Kidney Disease Epidemiology Collaboration (CKD-EPI) equation refit without adjustment for race Performed By: #### L [id number] ####Discharge Planner: LUL HENDERSON ([id number])[facility] ([facility])[address] [place] [address] [place] Glucose [Mass/Vol] 65 mg/dL Low 70-100 [facility] Comment on above: Performed By: #### L [id number] ####Discharge Planner: LUL HENDERSON ([id number])[facility] ([facility])[address] [place] [address] Potassium [Moles/Vol] 4.3 mmol/L Normal 3.5-5.1 [facility] Comment on above: Performed By: #### L [id number] ####Discharge Planner: LUL HENDERSON ([id number])[facility] ([facility])[address] [place] [address] Protein [Mass/Vol] 7.8 g/dL Normal 6.3-8.2 [facility] Comment on above: Performed By: #### L [id number] ####Discharge Planner: LUL HENDERSON ([id number])[facility] ([facility])[address] [place] [address] Sodium [Moles/Vol] 134 mmol/L Low 135-145 [facility] Comment on above: Performed By: #### L [id number] ####Discharge Planner: LUL HENDERSON ([id number])[facility] ([facility])[address] [place] [address] Urea nitrogen [Mass/Vol] 19 mg/dL Normal 9-20 [facility] Comment on above: Performed By: #### L [id number] ####Discharge Planner: LUL HENDERSON ([id number])[facility] ([facility])[address] [place] [address] ECG 12 lead - CLINIC PERFORM EDon 04-12-2024 Sinus Bradycardia -With rate variation WITHIN NORMAL LIMITS [facility] Office Visiton 04-12-2024 Follow-up visit [id number] CarmenzamayteHang 1945 [facility] Provider Department Center 04/12/2024 [id number]-KCQDRJOLIMPIA JIM [facility] [address] No family history on file Level of Service:52294 [place] OFFICE/OUTPATIENT NEW HIGH MDM 60 MINUTES Reason for Visit and Comments: Cardiac Valve Problem [1334] Normal [facility] Follow-up visit [id number] CarmenzamayteHang 1945 [facility] Department Center 04/12/2024 [id number]-ZQIAJUSTIN SANCHEZ [facility] [address] No family history on file Level of Service:20822 [place] OFFICE/OUTPATIENT NEW HIGH MDM 60 MINUTES Reason for Visit and Comments: Cardiac Valve Problem [1334] Normal [facility] Progress Noteon 04-12-2024 Progress Note [facility] Medical Group: Cardiothoracic Surgery Multidisciplinary Heart Valve Clinic Date: 04/12/24 Patient:Hang Keenan 1945 78 y.o. male [id number] Subjective: HPI: Hang Keenan [address] Ortiz is being evaluated for aortic valve stenosis. Echocardiogram completed on 01/16/24 showed moderate aortic valve stenosis with peak/mean gradients 49/31 mm Hg, NADEGE 1.0 cm^2. Patient with history of aortic stenosis, has been followed by Dr. Ortiz for several years. Patient s/p percutaneous revascularization of diagonal branch 01/18/24. During hospitalization a transthoracic echo was performed, showing LVEF 65%, mildly dilated LA, severe diffuse aortic valve calcification, moderate aortic valve stenosis with mild regurgitation. At office follow up patient reported an episode of chest discomfort, dyspnea on exertion, and on exam a grade 3/6 harsh murmur was noted. Medical History Past Medical History: Diagnosis Date Atelectasis BPH (benign prostatic hyperplasia) Carotid dissection, bilateral (CMS/HCC) ([facility]) Chest pain Hearing loss of left ear Hematuria Hyperlipidemia Hypothyroidism Malignant thymoma (HCC) Nonrheumatic aortic (valve) stenosis Nonrheumatic mitral valve regurgitation SERGO (obstructive sleep apnea) Paroxysmal A-fib (CMS/HCC) ([facility]) Pericarditis SVT (supraventricular tachycardia) ([facility]) Blood thinner - Plavix, warfarin Transthoracic Echocardiogram 01/16/24 Cardiac Cath 01/18/24 Review of Systems Constitutional: Positive for fatigue. Negative for activity change, chills, diaphoresis and fever. HENT: Negative for nosebleeds and trouble swallowing. Eyes: Negative for discharge and visual disturbance. Respiratory: Negative for apnea, cough, chest tightness, shortness of breath and wheezing. Cardiovascular: Positive for chest pain. Negative for palpitations and leg swelling. Gastrointestinal: Negative for abdominal distention, abdominal pain, blood in stool, diarrhea, nausea and vomiting. Endocrine: Negative for cold intolerance and heat intolerance. Genitourinary: Negative for hematuria. Musculoskeletal: Negative for gait problem and myalgias. Skin: Negative for color change and rash. Neurological: Negative for dizziness, seizures, syncope, facial asymmetry, speech difficulty, weakness, light-headedness, numbness and headaches. Hematological: Does not bruise/bleed easily. Psychiatric/Behaviora l: Negative for dysphoric mood. Allergies: Cephalexin, Levofloxacin, Lisinopril, Rosuvastatin, and Cefuroxime Past Medical History: has a past medical history of Atelectasis, BPH (benign prostatic hyperplasia), Carotid dissection, bilateral (CMS/HCC) ([facility]), Chest pain, Hearing loss of left ear, Hematuria, Hyperlipidemia, Hypothyroidism, Malignant thymoma ([facility]), Nonrheumatic aortic (valve) stenosis, Nonrheumatic mitral valve regurgitation, SERGO (obstructive sleep apnea), Paroxysmal A-fib (CMS/HCC) ([facility]), Pericarditis, and SVT (supraventricular tachycardia) ([facility]). Past Surgical History: has a past surgical history that includes Cardiac catheterization (N/A, 01/20/2024) and Cardiac catheterization (N/A, 01/20/2024). Social History: reports that he has never smoked. He has never used smokeless tobacco. Family History: family history is not on file. Medications: Prior to Admission medications Medication Sig Start Date End Date Taking? Authorizing Provider acetaminophen (Tylenol) 500 MG tablet Take 1,000 mg by mouth 3 times daily as needed for mild pain (1-3). Yes Historical Provider, amiodarone (Pacerone) 100 MG tablet Take 100 mg by mouth daily. Yes Historical Provider, amLODIPine (Norvasc) 2.5 MG tablet Take 2.5 mg by mouth daily. Historical Provider, amLODIPine (Norvasc) 5 MG tablet Take 5 mg by mouth daily. 02/15/24 Yes Historical Provider, atorvastatin (Lipitor) 80 MG tablet Take 1 tablet (80 mg) by mouth daily. 01/22/24 01/21/25 Larry Paredes MD carvedilol (Coreg) 12.5 MG tablet Take 12.5 mg by mouth in the morning and 12.5 mg in the evening. Take with meals. Yes Historical Provider, cholecalciferol (Vitamin D3) 25 MCG (1000 UT) tablet Take 1,000 Units by mouth daily. Yes Historical Provider, clopidogrel (Plavix) 75 MG tablet Take 1 tablet (75 mg) by mouth daily. 01/21/24 Yes Larry Paredes MD cyanocobalamin (Vitamin B-12) 1000 MCG tablet Take 1,000 mcg by mouth daily. Yes Historical Provider, finasteride (Proscar) 5 MG tablet Take 5 mg by mouth daily. Do not crush, chew, or split. Yes Historical Provider, ketorolac (Acular) 0.5 % ophthalmic solution Administer 1 drop into both eyes in the morning and 1 drop at noon and 1 drop in the evening and 1 drop before bedtime. 01/21/24 Larry Paredes MD levothyroxine (Synthroid, Levoxyl) 100 MCG tablet Take 100 mcg by mouth every morning (before breakfast). Yes Historical Provider, Multiple Vitamin (multivitamin) capsule Take 1 capsule by mouth daily (more content not included)... Normal [facility] Progress Note [facility] - [address] [address] Dept: [phone] Dept Loc: [phone] Interventional Cardiology Office Note Visit type: Established patient Reason for Visit: Cardiac Valve Problem Assessment and Plan Hang Keenan is a very pleasant 78 y.o. male who presents for evaluation of his aortic stenosis. I personally reviewed his echocardiogram. He does have severe symptomatic aortic stenosis. He continues to have symptoms despite his PCI. We will plan to proceed with TAVR. The Transcatheter Aortic Valve Replacement (TAVR) procedure was explained in detail. The potential risks of the procedure including bleeding, vascular complications, stroke, myocardial infarction, arrhythmias, renal dysfunction, infection and were described. All of the patient's questions were answered. The patient expressed understanding of the procedure and the potential risks and wishes to proceed with TAVR at this time. 1. Aortic valve stenosis, etiology of cardiac valve disease unspecified - ECG 12 lead - CLINIC PERFORMED No follow-ups on file. It was a great pleasure seeing Hang Keenan in our office today. Please contact me with any questions. Justin Resendiz MD MPH, [facility], [facility] Chief, Ischemic Heart Disease Hvac R Instructor, Interventional Cardiology Fellowship Cobol Engineer Coronary, Structural, Peripheral Interventions Subjective Hang Keenan is a very pleasant 78 y.o. male with Aortic stenosis (peak/mean 50/31, aortic valve area 1, 1+ AI, ejection fraction 65%), coronary artery disease status post PCI to the LAD and diagonal in the setting of ACS, hypertension, hyperlipidemia, atrial fibrillation on anticoagulation, malignant thymoma, history of carotid dissection who presents for evaluation of his aortic stenosis. He had a recent non-STEMI in [place] and was found to have ostial diagonal disease. He was transferred to [facility] and his ostial diagonal was stented by Dr. Santillan. He was also found to have moderate to severe aortic stenosis. He felt better after his PCI but he continues to have worsening fatigue and some shortness of breath with exertion. He denies any lightheadedness or syncope. He is very active and wants to remain that way. Review of Systems Constitutional: Positive for fatigue. Negative for activity change, chills, diaphoresis and fever. HENT: Positive for hearing loss. Negative for nosebleeds and trouble swallowing. Eyes: Negative for discharge and visual disturbance. Respiratory: Negative for apnea, cough, chest tightness, shortness of breath and wheezing. Cardiovascular: Positive for chest pain. Negative for palpitations and leg swelling. Gastrointestinal: Negative for abdominal distention, abdominal pain, blood in stool, diarrhea, nausea and vomiting. Endocrine: Negative for cold intolerance and heat intolerance. Genitourinary: Negative for hematuria. Musculoskeletal: Negative for gait problem and myalgias. Skin: Negative for color change and rash. Neurological: Negative for dizziness, seizures, syncope, facial asymmetry, speech difficulty, weakness, light-headedness, numbness and headaches. Hematological: Does not bruise/bleed easily. Psychiatric/Behaviora l: Negative for dysphoric mood. Allergies Allergen Reactions Cephalexin Pain in joints Levofloxacin achiness Lisinopril Didn't control bp well, labile Rosuvastatin Severe malagias Cefuroxime Rash Outpatient Medications Prior to Visit Medication Sig Dispense Refill acetaminophen (Tylenol) 500 MG tablet Take 1,000 mg by mouth 3 times daily as needed for mild pain (1-3). amiodarone (Pacerone) 100 MG tablet Take 100 mg by mouth daily. amLODIPine (Norvasc) 5 MG tablet Take 5 mg by mouth daily. carvedilol (Coreg) 12.5 MG tablet Take 12.5 mg by mouth in the morning and 12.5 mg in the evening. Take with meals. cholecalciferol (Vitamin D3) 25 MCG (1000 UT) tablet Take 1,000 Units by mouth daily. clopidogrel (Plavix) 75 MG tablet Take 1 tablet (75 mg) by mouth daily. 90 tablet 1 cyanocobalamin (Vitamin B-12) 1000 MCG tablet Take 1,000 mcg by mouth daily. finasteride (Proscar) 5 MG tablet Take 5 mg by mouth daily. Do not crush, chew, or split. levothyroxine (Synthroid, Levoxyl) 100 MCG tablet Take 100 mcg by mouth every morning (before breakfast). Multiple Vitamin (multivitamin) capsule Take 1 capsule by mouth daily. nitroglycerin (Nitrostat) 0.[address] 0.4 mg under the tongue every 5 minutes as needed for chest pain. warfarin (Coumadin) 5 MG tablet Take 5 mg by mouth daily. Take as directed per [facility] amLODIPine (Norvasc) 2.5 MG tablet Take 2.5 mg by mouth daily. atorvastatin (Lipitor) 80 MG tablet Take 1 tablet (80 mg) by mouth daily. 30 tablet 11 ketorolac (Acular) 0.5 % ophthalmic solution Administer 1 drop into both eyes in the morning and 1 (more content not included)... Normal [facility] XR Chest 2 Viewson No acute cardiopulmonary disease. Report Dictated on Electronically Signed By: Jamari Williamson MD Electronically Signed Date/Time: 04/12/2024 8:10 PM [facility] [employer] Patient Name: HANG KEENAN : 1945 Exam Date/Time: 04/12/2024 10:48 Procedure: XR CHEST 2 VIEWS Ordering Provider: RESENDIZ MEGGAN Reason For Exam: aortic stenosis CHEST X-RAY PA/LATERAL CLINICAL INDICATION: aortic stenosis Frontal and lateral plain films of the chest were obtained. COMPARISON: None FINDINGS: The cardiac silhouette is within normal limits. No focal consolidation is seen within the lungs. No pleural effusion or pneumothorax is identified. Degenerative changes of the thoracic spine are noted. [facility] Jamari Williamson MD - 04/12/2024 Patient Name: HANG KEENAN : 1945 Exam Date/Time: 04/12/2024 10:48 Procedure: XR CHEST 2 VIEWS Ordering Provider: RESENDIZ MEGGAN Reason For Exam: aortic stenosis CHEST X-RAY PA/LATERAL CLINICAL INDICATION: aortic stenosis Frontal and lateral plain films of the chest were obtained. COMPARISON: None FINDINGS: The cardiac silhouette is within normal limits. No focal consolidation is seen within the lungs. No pleural effusion or pneumothorax is identified. Degenerative changes of the thoracic spine are noted. IMPRESSION: No acute cardiopulmonary disease. Report Dictated on Electronically Signed By: Jamari Williamson MD Electronically Signed Date/Time: 04/12/2024 8:10 PM EST [facility] Radiology Study observation (narrative) [facility] alth XR Chest 2 ViewsOrdered By: Jamari Williamson on 04-12-2024 [facility] Progress Noteon 04-11-2024 Progress Note Hang Keenan 78 y[address]o . referred by Dr. Ortiz is being evaluated for aortic valve stenosis. Echocardiogram completed on 01/16/24 showed moderate aortic valve stenosis with peak/mean gradients 49/31 mm Hg, NADEGE 1.0 cm^2. Patient with history of aortic stenosis, has been followed by Dr. Ortiz for several years. Patient s/p percutaneous revascularization of diagonal branch 01/18/24. During hospitalization a transthoracic echo was performed, showing LVEF 65%, mildly dilated LA, severe diffuse aortic valve calcification, moderate aortic valve stenosis with mild regurgitation. At office follow up patient reported an episode of chest discomfort, dyspnea on exertion, and on exam a grade 3/6 harsh murmur was noted. Past Medical History: Diagnosis Date Atelectasis BPH (benign prostatic hyperplasia) Carotid dissection, bilateral (CMS/HCC) ([facility]) Chest pain Hearing loss of left ear Hematuria Hyperlipidemia Hypothyroidism Malignant thymoma (HCC) Nonrheumatic aortic (valve) stenosis Nonrheumatic mitral valve regurgitation SERGO (obstructive sleep apnea) Paroxysmal A-fib (CMS/HCC) ([facility]) Pericarditis SVT (supraventricular tachycardia) ([facility]) Blood thinner - Plavix, warfarin Transthoracic Echocardiogram 01/16/24 Cardiac Cath 01/18/24 [facility] 36on 04-08-2024 36 Spoke with and will plan to have pre-TAVR labs and CXR completed when registering for CTA. Reviewed all upcoming appointments [facility] 36 BMP received for upcoming CTA, pended orders for pre-TAVR labs and CXR. Anthony Resendiz JIG GRINDER to sign. Normal [facility] Progress Noteon 04-06-2024 Progress Note Community Health Worker Patient is active with [facility] RN Laina Montes Chart reviewed Appointments 04/12 Radiology 04/12 Cardiology Called patient and voice mail was full. Then called patient's son listed as Emergency Contact and left Voice Message. Normal [facility] Basic metabolic 1998 panelon 01-21-2024 Anion gap [Moles/Vol] 7 mmol/L 3 - 13 mmol/L [facility] Calcium [Mass/Vol] 9.2 mg/dL 8.4 - 10. 4 mg/dL [facility] Chloride [Moles/Vol] 106 mmol/L 98 - 10 7 mmol/L [facility] CO2 [Moles/Vol] 22 mmol/L 22 - 30 mmol/L [facility] Creatinine [Mass/Vol] 0.91 mg/dL 0.66 - 1.25 mg/dL [facility] GFR/1.73 sq M.predicted (S/P/Bld) [Vol rate/Area] 85.2 mL/min - PINF [facility] Comment on above: Calculation based on the Chronic Kidney Disease Epidemiology Collaboration (CKD-EPI) equation refit without adjustment for race Glucose [Mass/Vol] 95 mg/dL 70 - 100 mg/dL [facility] Interpretation and review of laboratory results Abnormal [facility] Potassium [Moles/Vol] 4.1 mmol/L 3.5 - 5.1 mmol/L [facility] Sodium [Moles/Vol] 135 mmol/L 135 - 145 mmol/L [facility] Urea nitrogen [Mass/Vol] 22 mg/dL High 9 - 20 mg/dL [facility] CBC W Auto Differential pane l (Bld)Ordered By: Imer Dickson on 01-21-2024 Basophils (Bld) [#/Vol] 0.1 10*3/uL 0.0 - 0.2 10*3/uL [facility] Basophils/100 WBC (Bld) 0.6 % 0.0 - 2.0 % [facility] Eosinophils (Bld) [#/Vol] 0.4 10*3/uL 0.0 - 0.5 10*3/uL [facility] Eosinophils/100 WBC (Bld) 4.2 % 0.0 - 6.0 % [facility] [employer] Erythrocyte distribution width (RBC) [Ratio] 17.1 % High 11.5 - 15.0 % [facility] Hematocrit (Bld) [Volume fraction] 45.5 % 40.0 - 52.0 % [facility] Hemoglobin (Bld) [Mass/Vol] 15.4 g/dL 13.0 - 18.0 g/dL [facility] Immature granulocytes (Bld) [#/Vol] 0.1 10*3/uL High NINF - 0.1 10*3/uL [facility] Immature granulocytes/100 WBC (Bld) 0.8 % 0.0 - 2.0 % [facility] Interpretation and review of laboratory results Abnormal [facility] Lymphocytes (Bld) [#/Vol] 1.2 10*3/uL 1.0 - 4.3 10*3/uL [facility] Lymphocytes/100 WBC (Bld) 12.2 % Low 15.0 - 45.0 % [facility] MCH (RBC) [Entitic mass] 29.6 pg 26.0 - 34.0 pg [facility] MCHC (RBC) [Mass/Vol] 33.8 % 30.5 - 36.0 % [facility] MCV (RBC) [Entitic vol] 87.3 fL 77.0 - 99.0 fL [facility] Monocytes (Bld) [#/Vol] 0.9 10*3/uL 0.0 - 0.9 10*3/uL [facility] Monocytes/100 WBC (Bld) 9.4 % 5.0 - 13.0 % [facility] Neutrophils (Bld) [#/Vol] 7.2 10*3/uL 1.8 - 7.5 10*3/uL [facility] Neutrophils/100 WBC (Bld) 72.8 % 38.0 - 82.0 % [facility] Nucleated RBC/100 WBC (Bld) [Ratio] 0.0 % [facility] [employer] Platelet mean volume (Bld) [Entitic vol] 9.5 fL 9.0 - 12.7 fL [facility] Platelets (Bld) [#/Vol] 346 10*3/uL 140 - 440 10*3/uL [facility] RBC (Bld) [#/Vol] 5.21 10*6/uL 4.40 - 5.9 0 10*6/uL [facility] [employer] WBC (Bld) [#/Vol] 10.0 10*3/uL 3.6 - 10.7 10*3/uL [facility] No Panel InformationOrdered By: aJmari Leon on 01-21-2024 P [place] 10 degrees [facility] Work Phone: [phone] AL Interval 181 ms [facility] Work Phone: [phone] QRS [place] -35 degrees [facility] Work Phone: QRSD Interval 95 ms [facility] [employer] Work Phone: [phone] QT Interval 449 ms [facility] Work Phone: [phone] QTC Interval 445 ms [facility] Work Phone: [phone] T Wave [place] -14 degrees [facility] Work Phone: [facility] [employer] Work Phone: [phone] No Panel Informationon 01-20 Sinus bradycardia LVH by voltage Borderline T abnormalities, inferior leads Electronically Signed On 01-21-2024 16:37:16 EDT by Jamari Clifford MD - 01/21/2024 IMPRESSION: Sinus bradycardia LVH by voltage Borderline T abnormalities, inferior leads Electronically Signed On 01-21-2024 16:37:16 EDT by aJmari Leon [facility] P [place] 21 degrees [facility] [employer] AL Interval 173 ms [facility] [employer] QRS [place] -13 degrees [facility] [employer] QRSD Interval 102 ms [facility] Interval 452 ms [facility] [employer] QTC Interval 426 ms [facility] [employer] T Wave [place] -22 degrees [facility] [employer] Sinus bradycardia Left ventricular hypertrophy Abnormal T, consider ischemia, diffuse leads Electronically Signed On 01-21-2024 09:39:52 EDT by Jamari Clifford MD - 01/21/2024 IMPRESSION: Sinus bradycardia Left ventricular hypertrophy Abnormal T, consider ischemia, diffuse leads Electronically Signed On 01-21-2024 09:39:52 EDT by Jamari Leon [facility] Vital signsOrdered By: Su Leon on 01-21-2024 Heart rate 59 /min bpm [facility] [employer] Work Phone: Vital signson 01-21-2024 Heart rate 53 /min bpm [facility] [employer] CBC W Auto Differential pane l (Bld)on 01-20-2024 Basophils (Bld) [#/Vol] 0.1 10*3/uL 0.0 - 0.2 10*3/uL [facility] [employer] Basophils/100 WBC (Bld) 0.7 % 0.0 - 2.0 % [facility] [employer] Eosinophils (Bld) [#/Vol] 0.4 10*3/uL 0.0 - 0.5 10*3/uL [facility] [employer] Eosinophils/100 WBC (Bld) 4.5 % 0.0 - 6.0 % [facility] [employer] Erythrocyte distribution width (RBC) [Ratio] 17.4 % High 11.5 - 15.0 % [facility] [employer] Hematocrit (Bld) [Volume fraction] 45.5 % 40.0 - 52.0 % [facility] [employer] Hemoglobin (Bld) [Mass/Vol] 14.9 g/dL 13.0 - 18.0 g/dL [facility] [employer] Immature granulocytes (Bld) [#/Vol] 0.1 10*3/uL High NINF - 0.1 10*3/uL [facility] [employer] Immature granulocytes/100 WBC (Bld) 1.0 % 0.0 - 2.0 % [facility] [employer] Interpretation and review of laboratory results Abnormal [facility] [employer] Lymphocytes (Bld) [#/Vol] 1.4 10*3/uL 1.0 - 4.3 10*3/uL [facility] [employer] Lymphocytes/100 WBC (Bld) 16.1 % 15.0 - 45.0 % [facility] [employer] MCH (RBC) [Entitic mass] 30.0 pg 26.0 - 34.0 pg [facility] [employer] MCHC (RBC) [Mass/Vol] 32.7 % 30.5 - 36.0 % [facility] [employer] MCV (RBC) [Entitic vol] 91.7 fL 77.0 - 99.0 fL [facility] [employer] Monocytes (Bld) [#/Vol] 0.8 10*3/uL 0.0 - 0.9 10*3/uL [facility] [employer] Monocytes/100 WBC (Bld) 9.0 % 5.0 - 13.0 % [facility] Neutrophils (Bld) [#/Vol] 5.9 10*3/uL 1.8 - 7.5 10*3/uL [facility] Neutrophils/100 WBC (Bld) 68.7 % 38.0 - 82.0 % [facility] Nucleated RBC/100 WBC (Bld) [Ratio] 0.0 % [facility] Platelet mean volume (Bld) [Entitic vol] 9.4 fL 9.0 - 12.7 fL [facility] Platelets (Bld) [#/Vol] 303 10*3/uL 140 - 440 10*3/uL [facility] RBC (Bld) [#/Vol] 4.96 10*6/uL 4.40 - 5.9 0 10*6/uL [facility] WBC (Bld) [#/Vol] 8.6 10*3/uL 3.6 - 10.7 10*3/uL [facility] Comprehensive metabolic 1998 panelon 01-20-2024 Albumin [Mass/Vol] 3.8 g/dL 3.5 - 5.0 g/dL [facility] ALP [Catalytic activity/Vol] 59 U/L 38 - 126 U/L [facility] ALT [Catalytic activity/Vol] 17 U/L 0 - 49 U/L [facility] Anion gap [Moles/Vol] 7 mmol/L 3 - 13 mmol/L [facility] AST [Catalytic activity/Vol] 31 U/L 15 - 46 U/L [facility] Bilirubin [Mass/Vol] 0.9 mg/dL 0.2 - 1 .3 mg/dL [facility] Calcium [Mass/Vol] 8.8 mg/dL 8.4 - 10. 4 mg/dL [facility] Chloride [Moles/Vol] 104 mmol/L 98 - 10 7 mmol/L [facility] CO2 [Moles/Vol] 25 mmol/L 22 - 30 mmol/L [facility] Creatinine [Mass/Vol] 1.01 mg/dL 0.66 - 1.25 mg/dL [facility] GFR/1.73 sq M.predicted (S/P/Bld) [Vol rate/Area] 75.2 mL/min - PINF [facility] Comment on above: Calculation based on the Chronic Kidney Disease Epidemiology Collaboration (CKD-EPI) equation refit without adjustment for race Glucose [Mass/Vol] 102 mg/dL High 70 - 100 mg/dL [facility] [employer] Potassium [Moles/Vol] 4.5 mmol/L 3.5 - 5.1 mmol/L [facility] [employer] Protein [Mass/Vol] 6.8 g/dL 6.3 - 8.2 g/dL [facility] Sodium [Moles/Vol] 135 mmol/L 135 - 145 mmol/L [facility] Urea nitrogen [Mass/Vol] 27 mg/dL High 9 - 20 mg/dL [facility] Laboratory - Chemistry and C hemistry - challengeOrdered By: Christine Harris on 01-20-2024 Troponin I.cardiac [Mass/Vol] 0.427 ng/mL Critically high NINF - 0.034 ng/mL [facility] Laboratory - Chemistry and C hemistry - challengeon 01-20-2024 Troponin I.cardiac [Mass/Vol] 0.513 ng/mL Critically high NINF - 0.034 ng/mL [facility] Laboratory - Chemistry and C hemistry - challengeOrdered By: Hyacinth Flowers on 01-20-2024 Troponin I.cardiac [Mass/Vol] 0.548 ng/mL Critically high NINF - 0.034 ng/mL [facility] Laboratory - Coagulationon 0 01-20-2024 PT Coag (Bld) [Time] 12.2 s High 9.0 - 12.0 s [facility] Lipid 1996 panelon 4 Cholesterol [Mass/Vol] 215 mg/dL High NINF - 200 mg/dL [facility] [employer] Cholesterol in HDL [Mass/Vol] 55 mg/dL 40 - 60 mg/dL [facility] [employer] Cholesterol in LDL [Mass/Vol] 139 mg/dL High 0 - <100 [facility] [employer] Cholesterol.total/Whitley sterol in HDL [Mass ratio] 4 {ratio} [facility] [employer] Comment on above: Ref Range: < 3 Low Risk for CHD 3-6 Mod Risk for CHD > 6 High Risk for CHD Triglyceride [Mass/Vol] 107 mg/dL NINF - 150 mg/dL [facility] [employer] No Panel Informationon 01-19 Interpretation and review of laboratory results Abnormal [facility] [employer] POCT ACT 209 High [facility] [employer] Performed by: [facility], [address] [place], [place] [id number] CLIA ID: [id number] [facility] POCT ACT 310 High [facility] Interpretation and review of laboratory results Abnormal [facility] PT Coag (Bld) [Time]on 01-19 INR Coag (PPP) [Relative time] 1.1 {INR} 0.9 - 1.1 [facility] Comment on above: Recommended Anticoag ulant Therapy: SEE BELOW ----- INR of 2.0 - 3.0 : - Prophylaxis of Venous Thrombosis (high-risk surgery) - Treatment of Venous Thrombosis - Treatment of Pulmonary Embolism (Includes tissue heart valves, Acute Myocardial Infarction to prevent systemic embolism, Valvular Heart Disease, and Atrial Fibrillation) ----- INR of 2.5 - 3.5 : - Mechanical Prosthetic Valves (high risk) - If oral anticoagulant therapy is used to prevent Myocardial Infarction Interpretation and review of laboratory results Abnormal [facility] Troponin I.cardiac [Mass/Vol ]Ordered By: Christine Harris on 01-20-2024 Interpretation and review of laboratory results Abnormal [facility] Patients with high levels of Biotin oral intake (ie >5 mg/day) may have falsely decreased Troponin levels. [facility] Troponin I.cardiac [Mass/Vol ]on 01-20-2024 Interpretation and review of laboratory results Abnormal [facility] Patients with high levels of Biotin oral intake (ie >5 mg/day) may have falsely decreased Troponin levels. [facility] Troponin I.cardiac [Mass/Vol ]Ordered By: Hyacinth Flowers on 01-20-2024 Interpretation and review of laboratory results Abnormal [facility] Patients with high levels of Biotin oral intake (ie >5 mg/day) may have falsely decreased Troponin levels. [facility] aPTT Coag (Bld) [Time]on aPTT Coag (PPP) [Time] 43.0 s High 20.0 - 30.5 s [facility] Interpretation and review of laboratory results Abnormal [facility] NOTE: The therapeuti c time for Heparin anticoagulation, based on Xa activity inhibition, is an APTT of 46-80 seconds. [facility] aPTT Coag (PPP) [Time] 27.3 s 20.0 - 30.5 s [facility] Interpretation and review of laboratory results Normal [facility] NOTE: The therapeuti c time for Heparin anticoagulation, based on Xa activity inhibition, is an APTT of 46-80 seconds. [facility] Laboratory - CoagulationOrde red By: Kaila Toribio on 09-15-2023 INR Coag (Bld) [Relative time] 2.3 {INR} [facility] PT Coag (PPP) [Time] 25.3 s 11.7-14.9 [facility] Absolute lymphocyte countOrd ered By: Kaila Toribio on 07-22-2023 Lymphocytes Auto (Unsp spec) [#/Vol] 1.19 10*3/uL 0.83-4.51 [facility] Automated lymphocyte count a s percentage of total leukocytesOrdered By: Kaila Toribio on 07-22-2023 Lymphocytes/100 WBC Auto (Unsp spec) 13.9 % 19-41 [facility] Basophil percentageOrdered B y: Kaila Toribio on 07-22-2023 Basophils/100 WBC (Bld) 1.3 % 0-1 [facility] Bilirubin [Mass/Vol] 0.70 mg/dL 0.20-1.00 [facility] Comment on above: For patients on eltr ombopag therapy, use of Dimension [place] TBIL is not recommended. Chloride [Moles/Vol] 111 mmol/L 98-107 [facility] Cholesterol [Mass/Vol] 244 mg/dL <200 [facility] Comment on above: <200 mg/dL Desirable 200-240 mg/dL Borderline >240 mg/dL High Risk Eosinophils/100 WBC (Bld) 4.4 % 0-5 [facility] Glucose [Mass/Vol] 102 mg/dL 74-106 [facility] Comment on above: Fasting Glucose resu lt from 100 to 125 mg/dL suggests IMPAIRED HOMEOSTASIS per A.D.A. criteria. Hemoglobin (Bld) [Mass/Vol] 15.9 g/dL 13.0-16.5 [facility] Monocytes/100 WBC (Bld) 10.5 % 0-10 [facility] Neutrophils (Bld) [#/Vol] 5.9 10*3/uL 2.0-7.7 [facility] Neutrophils/100 WBC (Bld) 69.2 % 47-70 [facility] Potassium [Moles/Vol] 3.9 mmol/L 3.5-5.1 [facility] Protein [Mass/Vol] 7.7 g/dL 6.4-8.2 [facility] Sodium [Moles/Vol] 140 mmol/L 136-145 [facility] Triglyceride [Mass/Vol] 66 mg/dL <199 [facility] Comment on above: The drugs N-Acetylcy steine and Metamizole may falsely depress this assay.Serum Triglycerides Reference Interval Normal <150 mg/dL Borderline high 150 - 199 mg/dL High 200 - 499 mg/dL Very High > or = 500 mg/dL WBC (Bld) [#/Vol] 8.6 10*3/uL 4.4-11.0 [facility] Determination of erythrocyte mean corpuscular volume (MCV)Ordered By: Kaila Toribio on 07-22-2023 MCV (RBC) [Entitic vol] 88.6 fL 80-94 [facility] Erythrocyte distribution wid th ratioOrdered By: Kaila Toribio on 07-22-2023 Erythrocyte distribution width (RBC) [Ratio] 16.3 % 11.6-14.6 [facility] Erythrocyte distribution wid th standard deviationOrdered By: Kaila Toribio on 07-22-2023 Erythrocyte distribution width (RBC) [Entitic vol] 52.4 fL 35.1-43.9 [facility] Hematocrit Auto (Bld) [Volum e fraction]Ordered By: Kaila Toribio on 07-22-2023 Hematocrit (Bld) [Volume fraction] 49.5 % 40-54 [facility] Immature granulocytes/100 WB C Auto (Bld)Ordered By: Kaila Toribio on 07-22-2023 Immature granulocytes/100 WBC (Bld) 0.700 % 0.0-0.9 [facility] Comment on above: IG% - Immature Granu locytes (promyelocytes, myelocytes and metamyelocytes) > 1% indicates that a LEFT SHIFT is Present. Laboratory - Chemistry and C hemistry - challengeOrdered By: Kaila Toribio on 07-22-2023 Albumin/Globulin [Mass ratio] 1.0 {ratio} 0.9-2.4 [facility] ALP [Catalytic activity/Vol] 92 U/L 45-117 [facility] ALT [Catalytic activity/Vol] 24 U/L 16-61 [facility] Cholesterol in HDL [Mass/Vol] 81 mg/dL >40 [facility] Comment on above: The drugs N-Acetylcy steine and Metamizole may falsely depress this assay. Reference Range HDL <40 mg/dL Low HDL Cholesterol HDL >or= 60 mg/dL High HDL Cholesterol Cholesterol in LDL [Mass/Vol] 150 mg/dL 0-130 [facility] CO2 [Moles/Vol] 25.0 mmol/L 21.0-32.0 [facility] Globulin (S) [Mass/Vol] 3.8 g/dL 2.2-4.2 [facility] Urea nitrogen/Creatinine [Mass ratio] 22.7 mg/mg 10-20 [facility] Laboratory - CoagulationOrde red By: Kaila Toribio on 07-22-2023 INR Coag (Bld) [Relative time] 2.9 {INR} [facility] PT Coag (PPP) [Time] 30.3 s 11.7-14.9 [facility] Laboratory - Hematology and Cell countsOrdered By: Kaila Toribio on 07-22-2023 MCH (RBC) [Entitic mass] 28.4 pg 27.0-32.0 [facility] MCHC (RBC) [Mass/Vol] 32.1 g/dL 32-36 [facility] Nucleated RBC/100 WBC (Bld) [Ratio] 0 % 0-5 [facility] Platelet mean volume (Bld) [Entitic vol] 9.4 fL 6.2-12.0 [facility] Platelets (Bld) [#/Vol] 373 10*3/uL 150-450 [facility] No Panel InformationOrdered By: Kaila Toribio on 07-22-2023 Estimated GFR (MDRD) Amer 83 mL/min >60 [facility] Comment on above: GFR Calc Estimated GFR (MDRD) Non-Af Amer 69 mL/min >60 [facility] Comment on above: Non- GFR Calc VLDL Cholesterol 13 mg/dL 5-40 [facility] RBC Auto (Bld) [#/Vol]Ordere d By: Kaila Toribio on 07-22-2023 RBC (Bld) [#/Vol] 5.59 10*6/uL 4.6-6.2 [facility] Serum or plasma calcium sharon urement (mass/volume)Ordered By: Kaila Toribio on 07-22-2023 Calcium [Mass/Vol] 8.8 mg/dL 8.5-10.1 [facility] Serum or plasma creatinine m easurement (mass/volume)Ordered By: Kaila Toribio on 07-22-2023 Creatinine [Mass/Vol] 1.10 mg/dL 0.70-1.30 [facility] Comment on above: The validity of the calculated GFR & GFRAA in patients over 70 years has not been determined. Clinical correlation is essential. Serum or plasma thyroid stim ulating hormone (TSH) measurement (units/volume)Ordered By: Kaila Toribio on 07-22-2023 TSH Qn 1.30 uIU/mL 0.358-3.74 [facility] Serum or plasma urea nitroge n measurement (mass/volume)Ordered By: Kaila Toribio on 07-22-2023 Urea nitrogen [Mass/Vol] 25 mg/dL 7-18 [facility] Thin prep Papanicolaou smear with manual screeningOrdered By: Kaila Toribio on 07-22-2023 Thin prep Papanicolaou smear with manual screening 3.9 g/dL 3.2-5.0 [facility] Thin prep Papanicolaou smear with manual screening 28 U/L 15-37 [facility] Thin prep Papanicolaou smear with manual screening 4 5-15 [facility] Thin prep Papanicolaou smear with manual screening 1.57 ng/dL 0.76-1.46 [facility] Whole blood hemoglobin A1c/t otal hemoglobin ratio (mass fraction)Ordered By: Kaila Toribio on 07-22-2023 HbA1c (Bld) [Mass fraction] 5.6 % 3.8-5.6 [facility] Comment on above: Normal < 5.7 % Predi abetic 5.7 - 6.4 % Diabetic >or= 6.5 % Please note range changes. International normalized rat io (INR) calculationOrdered By: Kaila Toribio on 06-15-2023 INR Coag (PPP) [Relative time] 2.9 {INR} [facility] Laboratory - CoagulationOrde red By: Kaila Toribio on 06-15-2023 PT Coag (PPP) [Time] 30.4 s 11.7-14.9 [facility] INR in Blood by Coagulation assayOrdered By: Kaila Toribio on 04-20-2023 INR Coag (Bld) [Relative time] 3.0 {INR} [facility] - CoagulationOrde red By: Kaila Toribio on 04-20-2023 PT Coag (PPP) [Time] 31.8 s 11.7-14.9 [facility] INR in Blood by Coagulation assayOrdered By: Kaila Toribio on 03-17-2023 INR Coag (Bld) [Relative time] 2.4 {INR} [facility] - CoagulationOrde red By: Kaila Toribio on 03-17-2023 PT Coag (PPP) [Time] 26.8 s 11.7-14.9 [facility] INR in Blood by Coagulation assayOrdered By: Kaila Toribio on 02-04-2023 INR Coag (Bld) [Relative time] 2.8 {INR} [facility] - CoagulationOrde red By: Kaila Toribio on 02-04-2023 PT Coag (PPP) [Time] 30.1 s 11.7-14.9 [facility] INR in Blood by Coagulation assayOrdered By: Kaila Toribio on 01-12-2023 INR Coag (Bld) [Relative time] 1.9 {INR} [facility] - CoagulationOrde red By: Kaila Toribio on 01-12-2023 PT Coag (PPP) [Time] 22.2 s 11.7-14.9 [facility] No Panel InformationOrdered By: Kaila Toribio on 01-12-2023 Prostate Specific Antigen Total 2.73 ng/mL 0.0-4.0 [facility] Comment on above: This test was perfor med using the TPSA assay method for the[facility] [employer] chemistry system. Values obtained with differentassay methods cannot be used interchangably.When changing PSA assays in the course of monitoring apatient, additional sequential testing should be carriedout to confirm baseline values. INR in Blood by Coagulation assayOrdered By: Kaila Toribio on 12-11-2022 INR Coag (Bld) [Relative time] 1.6 {INR} [facility] - CoagulationOrde red By: Kaila Toribio on 12-11-2022 PT Coag (PPP) [Time] 19.2 s 11.7-14.9 [facility] - CoagulationOrde red By: Kaila Toribio on 10-31-2022 INR Coag (Bld) [Relative time] 2.1 {INR} [facility] Comment on above: Critical Value > 4.0 Whole blood prothrombin time Ordered By: Kaila Toribio on 10-31-2022 PT Coag (Bld) [Time] 22.8 s 11.7-14.9 [facility] Absolute lymphocyte counton 09-10-2022 Lymphocytes Auto (Unsp spec) [#/Vol] 1.19 10*3/uL 0.83-4.51 [facility] Basophil percentageon 2022 Basophils/100 WBC (Bld) 0.8 % 0-1 [facility] Bilirubin [Mass/Vol] 0.70 mg/dL 0.20-1.00 [facility] Comment on above: For patients on eltr ombopag therapy, use of Dimension [place] TBIL is not recommended. Chloride [Moles/Vol] 107 mmol/L 98-107 [facility] Cholesterol [Mass/Vol] 256 mg/dL <200 [facility] Comment on above: <200 mg/dL Desirable 200-240 mg/dL Borderline >240 mg/dL High Risk Eosinophils/100 WBC (Bld) 4.1 % 0-5 [facility] Glucose [Mass/Vol] 101 mg/dL 74-106 [facility] Comment on above: Fasting Glucose resu lt from 100 to 125 mg/dL suggests IMPAIRED HOMEOSTASIS per A.D.A. criteria. Neutrophils (Bld) [#/Vol] 6.3 10*3/uL 2.0-7.7 [facility] Neutrophils/100 WBC (Bld) 72.7 % 47-70 [facility] Potassium [Moles/Vol] 4.3 mmol/L 3.5-5.1 [facility] Protein [Mass/Vol] 8.0 g/dL 6.4-8.2 [facility] Sodium [Moles/Vol] 137 mmol/L 136-145 [facility] Triglyceride [Mass/Vol] 98 mg/dL <199 [facility] Comment on above: The drugs N-Acetylcy steine and Metamizole may falsely depress this assay.Serum Triglycerides Reference Interval Normal <150 mg/dL Borderline high 150 - 199 mg/dL High 200 - 499 mg/dL Very High > or = 500 mg/dL WBC (Bld) [#/Vol] 8.6 10*3/uL 4.4-11.0 [facility] Blood erythrocytes count (nu mber/volume)on 09-10-2022 RBC (Bld) [#/Vol] 5.82 10*6/uL 4.6-6.2 [facility] Blood hemoglobin measurement (mass/volume)on 09-10-2022 Hemoglobin (Bld) [Mass/Vol] 16.1 g/dL 13.0-16.5 [facility] Blood lymphocytes/100 leukoc yteson 09-10-2022 Lymphocytes/100 WBC (Bld) 13.8 % 19-41 [facility] Blood monocytes/100 leukocyt eson 09-10-2022 Monocytes/100 WBC (Bld) 8.3 % 0-10 [facility] Blood platelet mean volumeon 09-10-2022 Platelet mean volume (Bld) [Entitic vol] 9.2 fL 6.2-12.0 [facility] Determination of erythrocyte mean corpuscular volume (MCV)on 09-10-2022 MCV (RBC) [Entitic vol] 86.4 fL 80-94 [facility] Hematocrit Auto (Bld) [Volum e fraction]on 09-10-2022 Hematocrit (Bld) [Volume fraction] 50.3 % 40-54 [facility] Laboratory - Chemistry and C hemistry - challengeon 09-10-2022 ALP [Catalytic activity/Vol] 72 U/L 45-117 [facility] ALT [Catalytic activity/Vol] 23 U/L 16-61 [facility] CO2 [Moles/Vol] 27.0 mmol/L 21.0-32.0 [facility] Cobalamin (Vitamin B12) [Mass/Vol] 980 pg/mL 211-911 [facility] Free T4 [Mass/Vol] 1.15 ng/dL 0.76-1.46 [facility] Globulin (S) [Mass/Vol] 3.8 g/dL 2.2-4.2 [facility] Urea nitrogen/Creatinine [Mass ratio] 20.2 mg/mg 10-20 [facility] Laboratory - Hematology and Cell countson 09-10-2022 Anisocytosis Ql (Bld) 1+ [facility] Erythrocyte distribution width (RBC) [Entitic vol] 61.1 fL 35.1-43.9 [facility] Erythrocyte distribution width (RBC) [Ratio] 20.4 % 11.6-14.6 [facility] Immature granulocytes/100 WBC (Bld) 0.300 % 0.0-0.9 [facility] Comment on above: IG% - Immature Granu locytes (promyelocytes, myelocytes and metamyelocytes) > 1% indicates that a LEFT SHIFT is Present. MCH (RBC) [Entitic mass] 27.7 pg 27.0-32.0 [facility] Nucleated RBC/100 WBC (Bld) [Ratio] 0 % 0-5 [facility] MCHC Auto (RBC) [Mass/Vol]on 09-10-2022 MCHC (RBC) [Mass/Vol] 32.0 g/dL 32-36 [facility] No Panel Informationon 09-10 Estimated GFR (MDRD) Amer 89 mL/min >60 [facility] Comment on above: GFR Calc Estimated GFR (MDRD) Non-Af Amer 73 mL/min >60 [facility] Comment on above: Non- GFR Calc Prostate Specific Antigen Total 2.99 ng/mL 0.0-4.0 [facility] Comment on above: This test was perfor med using the TPSA assay method for the[facility] chemistry system. Values obtained with differentassay methods cannot be used interchangably.When changing PSA assays in the course of monitoring apatient, additional sequential testing should be carriedout to confirm baseline values. Thyroid Stimulating Hormone (TSH) 9.99 uIU/mL 0.358-3.74 [facility] Vitamin D 25-Hydroxy 31.1 ng/mL [facility] Comment on above: Vitamin D 25(OH) Sta tus Range Deficiency <20 ng/mL (50nmol/L) Insufficiency 20 - 30 ng/mL (50 - 75 nmol/L) Sufficiency 30 - 100 ng/mL (75 - 250 nmol/L) Toxicity >100 ng/mL (>250 nmol/L) Platelets bldon 09-10-2022 Platelets (Bld) [#/Vol] 402 10*3/uL 150-450 [facility] Serum or plasma albumin sharon urement (mass/volume)on 09-10-2022 Albumin [Mass/Vol] 4.2 g/dL 3.2-5.0 [facility] Serum or plasma albumin/glob ulin mass ratioon 09-10-2022 Albumin/Globulin [Mass ratio] 1.1 {ratio} 0.9-2.4 [facility] Serum or plasma calcium sharon urement (mass/volume)on 09-10-2022 Calcium [Mass/Vol] 9.1 mg/dL 8.5-10.1 [facility] Serum or plasma cholesterol in HDL measurement (mass/volume)on 09-10-2022 Cholesterol in HDL [Mass/Vol] 79 mg/dL >40 [facility] Comment on above: The drugs N-Acetylcy steine and Metamizole may falsely depress this assay. Reference Range HDL <40 mg/dL Low HDL Cholesterol HDL >or= 60 mg/dL High HDL Cholesterol Serum or plasma cholesterol in VLDL measurement (mass/volume)on 09-10-2022 Cholesterol in VLDL [Mass/Vol] 20 mg/dL 5-40 [facility] Serum or plasma creatinine m easurement (mass/volume)on 09-10-2022 Creatinine [Mass/Vol] 1.04 mg/dL 0.70-1.30 [facility] Comment on above: The validity of the calculated GFR & GFRAA in patients over 70 years has not been determined. Clinical correlation is essential. Serum or plasma low density lipoprotein (LDL) cholesterol measurement (mass/volume)on 09-10-2022 Cholesterol in LDL [Mass/Vol] 157 mg/dL 0-130 [facility] Serum or plasma urea nitroge n measurement (mass/volume)on 09-10-2022 Urea nitrogen [Mass/Vol] 21 mg/dL 7-18 [facility] Thin prep Papanicolaou smear with manual screeningon 09-10-2022 Thin prep Papanicolaou smear with manual screening 18 U/L 15-37 [facility] Thin prep Papanicolaou smear with manual screening 3 5-15 [facility] CNPNon 04-29-2022 CNPN Telephone (FELI) HANG KEENAN ([id number]) 1945 M Date Time Provider Department 04/29/22 RYAN MANRIQUEZ During your visit today, we recorded the following information about you: Whit Swan Adm 04/29/2022 1:59 PM Signed Patient phoned in today to request cancelling his CT chest scan test scheduled today and the future appointment for tomorrow 04-30-22 with the primghar surgeon. He verbalized that he refuses to wear a mask and confirmed that he understands this will delay his treatment/ plan with the surgeon. Whit Swan Field Representative/Health Education Allergies As of Date: 04/29/2022 Noted Allergy Reaction CEFUROXIME AXETIL 02/14/2013 2 - Rash CEPHALEXIN 11/09/2021 16 - Unknown LEVAQUIN (LEVOFLOXACIN) 07/02/2006 Comments: Made pt feel achey LISINOPRIL 11/09/2021 16 - Unknown Date Reviewed: 04/25/2022 Reviewed by: Shelby Owusu RT(R) - Fully Assessed Reason for Visit: Appointment Cancelled [1023] Cmt: Per call from patient Prescriptions as of 04/29/2022 - aspirin, enteric coated (ASPIRIN, ENTERIC COATED) 81 mg EC tablet Take 81 mg by mouth once daily. - rosuvastatin (CRESTOR) 20 mg tablet Take 10 mg by mouth once each week. - amLODIPine (NORVASC) 2.5 mg tablet Take 1 tablet by mouth once daily. May take additional 2.5 mg if SBP is greater than 140 - finasteride (PROSCAR) 5 mg tablet Take 1 tablet by mouth once daily. - carvedilol (COREG) 6.25 mg tablet Take 1 tablet by mouth twice daily. - WARFARIN SODIUM (COUMADIN ORAL) Take 7.5 mg by mouth once daily. - UBIDECARENONE (COQ-10 ORAL) Take 100 mg by mouth every 12 hours. - OTC NUTRITIONAL SUPPLEMENT once daily. Nutriferon - for the immune system - levothyroxine 75 mcg tablet Take 1 tablet by mouth daily before breakfast. - multivitamins(MULTIPL E VITAMINS TAB) Take one(1) tablet daily. Meds Comments as of 06/08/2012: Patient has only been taking 1/2 of his 5mg lisinopril daily, along with his 1/2 of 25mg HCTZ 06/08/2012 - MEM. 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 06/20/2019 Essential hypertension [I10] 04/10/2016 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] 04/23/2017 Agitation [R45.1] 04/23/2017 06/20/2019 Pericarditis [I31.9] 04/23/2017 Atelectasis [J98.11] 04/23/2017 06/20/2019 Paroxysmal atrial fibrillation (HCC) [I48.0] 04/23/2017 Postoperative pain [G89.18] 04/23/2017 06/20/2019 Elevated troponin [R77.8] 04/26/2017 Acute pericarditis [I30.9] 04/26/2017 06/20/2019 Mechanical venous thromboembolism (VTE) prophyl*04/26/2017 Discharge planning issues [Z02.9] 04/26/2017 06/20/2019 Malignant thymoma (HCC) [C37] 06/10/2018 Encounter Status:Closed by HWIT LYONS on 04/29/22 [facility] Garrett 03-10-2022 CNPN Telephone (PODCCP) HANG KEENAN ([id number]) 1945 M Date Time Provider Department 03/10/22 TAPAN CORNELIUS PODCCP During your visit today, we recorded the following information about you: Ana Rosa Chu 03/10/2022 8:33 AM Signed Reason for call: Mr. Keenan would like to schedule an appointment with Dr. Manriquez. Home and cell number [phone] Diagnosis Malignant thymoma (HCC) +1 more Best regards, Ana Rosa Tanner Campos 03/11/2022 12:36 PM Signed Hang Keenan appointments have been scheduled accordingly. Patient has been notified via telephone and appointment schedule Tanner Campos March 11, 2022 12:35 PM Allergies As of Date: 03/10/2022 Noted Allergy Reaction CEFUROXIME AXETIL 02/14/2013 2 - Rash CEPHALEXIN 11/09/2021 16 - Unknown LEVAQUIN (LEVOFLOXACIN) 07/02/2006 Comments: Made pt feel achey LISINOPRIL 11/09/2021 16 - Unknown Date Reviewed: 11/09/2021 Reviewed by: Zaria Henley RN - Fully Assessed Reason for Visit: Appointment [[id number]] Prescriptions as of 03/11/2022 - iv contrast (will be provided with radiology test) CT Chest W -Inject, intravenously, once for 1 dose.No IV access, insert saline lock prior to the beginning of sedation, infusion, injection of imaging exam. Discontinue saline lock post exam. If Pt. has a central line or IVAD, may access for administration according to line specific nursing protocol. Once exam is complete flush line and de-access according to line specific nursing protocol in the [place] contrast administration guidelines link. - aspirin, enteric coated (ASPIRIN, ENTERIC COATED) 81 mg EC tablet Take 81 mg by mouth once daily. - rosuvastatin (CRESTOR) 20 mg tablet Take 10 mg by mouth once each week. - amLODIPine (NORVASC) 2.5 mg tablet Take 1 tablet by mouth once daily. May take additional 2.5 mg if SBP is greater than 140 - finasteride (PROSCAR) 5 mg tablet Take 1 tablet by mouth once daily. - carvedilol (COREG) 6.25 mg tablet Take 1 tablet by mouth twice daily. - WARFARIN SODIUM (COUMADIN ORAL) Take 7.5 mg by mouth once daily. - UBIDECARENONE (COQ-10 ORAL) Take 100 mg by mouth every 12 hours. - OTC NUTRITIONAL SUPPLEMENT once daily. Nutriferon - for the immune system - levothyroxine 75 mcg tablet Take 1 tablet by mouth daily before breakfast. - multivitamins(MULTIPL E VITAMINS TAB) Take one(1) tablet daily. Meds Comments as of 06/08/2012: Patient has only been taking 1/2 of his 5mg lisinopril daily, along with his 1/2 of 25mg HCTZ 06/08/2012 - MEM. 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*04/08/2016 06/20/2019 Essential hypertension [I10] 04/10/2016 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] 04/23/2017 Agitation [R45.1] 04/23/2017 06/20/2019 Pericarditis [I31.9] 04/23/2017 Atelectasis [J98.11] 04/23/2017 06/20/2019 Paroxysmal atrial fibrillation (HCC) [I48.0] 04/23/2017 Postoperative pain [G89.18] 04/23/2017 06/20/2019 Elevated troponin [R77.8] 04/26/2017 Acute pericarditis [I30.9] 04/26/2017 06/20/2019 Mechanical venous thromboembolism (VTE) prophyl*04/26/2017 Discharge planning issues [Z02.9] 04/26/2017 06/20/2019 Malignant thymoma (HCC) [C37] 06/10/2018 Encounter Status:Closed by ANA ROSA SAGE on 03/10/22 Normal [facility] Absolute lymphocyte counton 11-18-2021 Lymphocytes Auto (Unsp spec) [#/Vol] 0.85 10*3/uL 0.83-4.51 [facility] Work Phone: Basophil percentageon 2021 Basophil percentage 5-10 SEEN /hpf 0-5 [facility] Work Phone: Basophils/100 WBC (Bld) 0.3 % 0-1 [facility] Work Phone: [phone] Chloride [Moles/Vol] 103 mmol/L 98-107 [facility] Work Phone: [phone] Eosinophils/100 WBC (Bld) 0.9 % 0-5 [facility] Work Phone: Glucose [Mass/Vol] 113 mg/dL 74-106 [facility] Work Phone: Comment on above: Fasting Glucose resu lt from 100 to 125 mg/dL suggests IMPAIRED HOMEOSTASIS per A.D.A. criteria. Neutrophils (Bld) [#/Vol] 14.2 10*3/uL 2.0-7.7 [facility] Work Phone: Neutrophils/100 WBC (Bld) 83.7 % 47-70 [facility] Work Phone: Potassium [Moles/Vol] 4.5 mmol/L 3.5-5.1 [facility] Work Phone: Sodium [Moles/Vol] 135 mmol/L 136-145 [facility] Work Phone: WBC (Bld) [#/Vol] 16.9 10*3/uL 4.4-11.0 [facility] Work Phone: Bilirubin Test strip Ql (U)o n 11-18-2021 Bilirubin Ql (U) Negative Negative [facility] Work Phone: Blood erythrocytes count (nu mber/volume)on 11-18-2021 RBC (Bld) [#/Vol] 4.35 10*6/uL 4.6-6.2 [facility] Work Phone: Blood hemoglobin measurement (mass/volume)on 11-18-2021 Hemoglobin (Bld) [Mass/Vol] 12.4 g/dL 13.0-16.5 [facility] Work Phone: Blood lymphocytes/100 leukoc yteson 11-18-2021 Lymphocytes/100 WBC (Bld) 5.0 % 19-41 [facility] Work Phone: Blood manual differential co mment interpretation (narrative result)on 11-18-2021 Manual differential comment Odin (Bld) [Interp] SEE COMMENT [facility] Work Phone: Comment on above: MONOCYTOSIS NOTED Blood monocytes/100 leukocyt eson 11-18-2021 Monocytes/100 WBC (Bld) 9.4 % 0-10 [facility] Work Phone: Blood platelet adequacy dete ction by light microscopyon 11-18-2021 Platelets LM Ql (Bld) ADEQUATE ADEQ [facility] Work Phone: Blood platelet mean volumeon 11-18-2021 Platelet mean volume (Bld) [Entitic vol] 8.9 fL 6.2-12.0 [facility] Work Phone: Determination of erythrocyte mean corpuscular volume (MCV)on 11-18-2021 MCV (RBC) [Entitic vol] 89.4 fL 80-94 [facility] Work Phone: Hematocrit Auto (Bld) [Volum e fraction]on 11-18-2021 Hematocrit (Bld) [Volume fraction] 38.9 % 40-54 [facility] Work Phone: Ketones Test strip Ql (U)on 11-18-2021 Ketones Ql (U) Negative Negative [facility] Work Phone: Laboratory - Chemistry and C hemistry - challengeon 11-18-2021 CO2 [Moles/Vol] 25.0 mmol/L 21.0-32.0 [facility] Work Phone: Urea nitrogen/Creatinine [Mass ratio] 15.4 mg/mg 10-20 [facility] Work Phone: Laboratory - Hematology and Cell countson 11-18-2021 Anisocytosis Ql (Bld) RARE [facility] Work Phone: Erythrocyte distribution width (RBC) [Entitic vol] 49.2 fL 35.1-43.9 [facility] Work Phone: Erythrocyte distribution width (RBC) [Ratio] 14.9 % 11.6-14.6 [facility] Work Phone: Immature granulocytes/100 WBC (Bld) 0.700 % 0.0-0.9 [facility] Work Phone: Comment on above: IG% - Immature Granu locytes (promyelocytes, myelocytes and metamyelocytes) > 1% indicates that a LEFT SHIFT is Present. MCH (RBC) [Entitic mass] 28.5 pg 27.0-32.0 [facility] Work Phone: Nucleated RBC/100 WBC (Bld) [Ratio] 0 % 0-5 [facility] Work Phone: MCHC Auto (RBC) [Mass/Vol]on 11-18-2021 MCHC (RBC) [Mass/Vol] 31.9 g/dL 32-36 [facility] Work Phone: Macrocytes detectionon 11-18 Macrocytes [facility]l (Bld) [facility]: Mucus LM Ql (Urine sed)on Mucus Ql (Urine sed) 0 SEEN /hpf [facility] Work Phone: Nitrite Test strip Ql (U)on 11-18-2021 Nitrite Ql (U) Positive Negative [facility] Work Phone: No Panel Informationon 11-18 Estimated Creatinine Clearance Calc 49.81 ml/min [facility] Work Phone: Estimated GFR (MDRD) Amer 89 mL/min >60 [facility] Work Phone: Comment on above: GFR Calc Estimated GFR (MDRD) Non-Af Amer 73 mL/min >60 [facility] Work Phone: Comment on above: Non- GFR Calc Platelets bldon 11-18-2021 Platelets (Bld) [#/Vol] 388 10*3/uL 150-450 [facility] Work Phone: Protein Test strip Ql (U)on 11-18-2021 Protein Ql (U) 30 mg/dl Negative [facility] Work Phone: RBC morphologyon 11-18-2021 RBC morphology finding Nom (Bld) N CHROM NORMAL NORM C&C [facility] Work Phone: Review by pathologiston 10-24 Pathologist review Odin (Unsp spec) [Interp] May foll [facility] Work Phone: Pathologist review Odin (Unsp spec) [Interp] Reviewed [facility] Work Phone: Comment on above: Previous reported re sult: Arianna nunez Edited by: RGOOD on 11/20/21:1002Minimal Neutrophilic leukocytosis.Normocytic anemia.Kory Roberto D.O. 11/20/21 AMENDED REPORT 11/20/21 1002 PATH REV previously reported as: Arianna nunez Serum or plasma calcium sharon urement (mass/volume)on 11-18-2021 Calcium [Mass/Vol] 9.5 mg/dL 8.5-10.1 [facility] Work Phone: Serum or plasma creatinine m easurement (mass/volume)on 11-18-2021 Creatinine [Mass/Vol] 1.04 mg/dL 0.70-1.30 [facility] Work Phone: Comment on above: The validity of the calculated GFR & GFRAA in patients over 70 years has not been determined. Clinical correlation is essential. Serum or plasma urea nitroge n measurement (mass/volume)on 11-18-2021 Urea nitrogen [Mass/Vol] 16 mg/dL 7-18 [facility] Work Phone: Squamous epithelial cells de tection in urine sediment by light microscopyon 11-18-2021 Epithelial cells.squamous LM Ql (Urine sed) 0-5 SEEN /hpf 0-5 [facility] Work Phone: Thin prep Papanicolaou smear with manual screeningon 11-18-2021 Thin prep Papanicolaou smear with manual screening 7 5-15 [facility] Work Phone: Urine blood detectionon 10-24 RBC Ql (U) 150 /ul Negative [facility] Work Phone: RBC Ql (U) 10-25 SEEN /hpf 0-5 [facility] Work Phone: Urine clarityon 11-18-2021 Clarity (U) Sl. Cloudy Clear [facility] Work Phone: Urine color determinationon 11-18-2021 Color (U) Yellow Yellow [facility] Work Phone: Urine glucose detectionon Glucose Ql (U) Normal mg/dl Normal [facility] Work Phone: Urine leukocyte esterase det ection by dipstickon 11-18-2021 Leukocyte esterase Test strip Ql (U) 500 /ul Negative [facility] Work Phone: Urine pHon 11-18-2021 pH (U) 6.0 [pH] 5.0 - 8.0 [facility] Work Phone: Urine sediment bacteria coun t by microscopy (number/high power field)on 11-18-2021 Bacteria LM.HPF (Urine sed) [#/Area] 1 /[HPF] None Seen [facility] Work Phone: Urine specific gravity measu rementon 11-18-2021 Specific gravity (U) [Rel density] 1.010 1.002-1.030 [facility] Work Phone: Urobilinogen Auto test strip Ql (U)on 11-18-2021 Urobilinogen Ql (U) 1 mg/dl Normal [facility] Work Phone: Bacteria Ur Culton 2 Bacteria identified Cx Nom (U) ORGANISM ID: 2 10,000 -<50,000 CFU/ml Gram negative bacilli, oxidase positive Insignificant colony count. No further workup. ORGANISM ID: 3 1,000 - <5,000 CFU/ml Gram negative bacilli Insignificant colony count. No further workup. Normal [facility] Comment on above: Performed By: #### 6 30-4 ####[facility] [id number] [place] [address] [place] Basic metabolic 2000 panelon 11-09-2021 Anion gap [Moles/Vol] 11 mmol/L Normal 9-18 [facility] Comment on above: Order Comment: Speci men Type: BLOOD SPECIMEN Ordering Facility: [facility] Address: [address] [address] Performed By: #### 2 4321-2 #### [facility] CLIA [id number] [address] [place] Calcium [Mass/Vol] 9.6 mg/dL Normal 8.5-10.2 [facility] Comment on above: Order Comment: Speci men Type: BLOOD SPECIMEN Ordering Facility: [facility] Address: [address] [place] [address] Performed By: #### 2 4321-2 #### [facility] CLIA [id number] 1 [place] [address] [place] Chloride [Moles/Vol] 103 mmol/L Normal 97-105 [facility] Comment on above: Order Comment: Speci men Type: BLOOD SPECIMEN Ordering Facility: [facility] Address: [address] [place] [address] Performed By: #### 2 4321-2 #### [facility] CLIA [id number] 1 [place] [address] [place] CO2 [Moles/Vol] 26 mmol/L Normal 22-30 [facility] Comment on above: Order Comment: Speci men Type: BLOOD SPECIMEN Ordering Facility: [facility] Address: [address] [place] [address] Performed By: #### 2 4321-2 #### [facility] CLIA [id number] [address] [place] Creatinine [Mass/Vol] 0.99 mg/dL Normal 0.73-1.22 [facility] Comment on above: Order Comment: Speci men Type: BLOOD SPECIMEN Ordering Facility: [facility] Address: [address] [place] [address] Performed By: #### 2 4321-2 #### [facility] CLIA [id number] [address] [place] ESTIMATED GLOMERULAR FILTRATION RATE 78 mL/min/1.73m??? Normal >=60 [facility] Comment on above: Order Comment: Speci men Type: BLOOD SPECIMEN Ordering Facility: [facility] Address: [address] [phone] Result Comment: Hilary mated Glomerular Filtration Rate (eGFR) is calculated using the 2020 CKD-EPI creatinine equation. This equation utilizes serum creatinine, sex, and age as parameters. The creatinine assay has traceable calibration to isotope dilution-mass spectrometry. Refer to KDIGO guidelines for clinical interpretation. In patients with unstable renal function, e.g. those with acute kidney injury, the eGFR may not accurately reflect actual GFR. Performed By: #### 2 4321-2 #### [facility] CLIA [id number] 1 [place] [address] [place] Glucose [Mass/Vol] 99 mg/dL Normal 74-99 [facility] Comment on above: Order Comment: Jamila oliveira Type: BLOOD SPECIMEN Ordering Facility: [facility] Address: [address] [place], [place] [phone] Result Comment: The [place] Diabetes Association (ADA) provides guidance for cutoff values for fasting glucose and random glucose. The ADA defines fasting as no caloric intake for at least 8 hours. Fasting plasma glucose results between 100 to 125 mg/dL indicate increased risk for diabetes (prediabetes). Fasting plasma glucose results greater than or equal to 126 mg/dL meet the criteria for diagnosis of diabetes. In the absence of unequivocal hyperglycemia, results should be confirmed by repeat testing. In a patient with classic symptoms of hyperglycemia or hyperglycemic crisis, random plasma glucose results greater than or equal to 200 mg/dL meet the criteria for diagnosis of diabetes. Reference: Standards of Medical Care in Diabetes 2016, [place] Diabetes Association. Diabetes Care. 2016.39(Suppl 1). Performed By: #### 2 4321-2 #### [facility] CLIA [id number] 1 [place] [address] [place] Potassium [Moles/Vol] 4.2 mmol/L Normal 3.7-5.1 [facility] Comment on above: Order Comment: Jamila oliveira Type: BLOOD SPECIMEN Ordering Facility: [facility] Address: [address] [phone] Performed By: #### 2 4321-2 #### [facility] CLIA [id number] [address] STATES [place] [facility] Sodium [Moles/Vol] 140 mmol/L Normal 136-144 [facility] Comment on above: Order Comment: Speci men Type: BLOOD SPECIMEN Ordering Facility: [facility] Address: [address] [place] [address] Performed By: #### 2 4321-2 #### [facility] CLIA [id number] [address] [place] [facility] Urea nitrogen [Mass/Vol] 17 mg/dL Normal 9-24 [facility] Comment on above: Order Comment: Speci men Type: BLOOD SPECIMEN Ordering Facility: [facility] Address: [address] [place] [address] Performed By: #### 2 4321-2 #### [facility] CLIA [id number] [address] CBC W Auto Differential pane l (Bld)on 11-09-2021 Basophils (Bld) [#/Vol] 0.04 10*3/uL Normal <0.11 [facility] Comment on above: Order Comment: Speci men Type: BLOOD SPECIMEN Ordering Facility: [facility] Address: [address] [place] [address] Performed By: #### 5 7021-8 #### [facility] CLIA [id number] [address] Basophils/100 WBC (Bld) 0.6 % Normal [facility] Comment on above: Order Comment: Speci men Type: BLOOD SPECIMEN Ordering Facility: [facility] Address: [address] [place] [address] Performed By: #### 5 7021-8 #### [facility] CLIA [id number] [address] Differential cell count method Nom (Bld) Auto Normal [facility] Comment on above: Order Comment: Speci men Type: BLOOD SPECIMEN Ordering Facility: [facility] Address: [address] [place] [address] Performed By: #### 5 7021-8 #### [facility] CLIA [id number] [address] [place] Eosinophils (Bld) [#/Vol] 0.31 10*3/uL Normal <0.46 [facility] Comment on above: Order Comment: Speci men Type: BLOOD SPECIMEN Ordering Facility: [facility] Address: [address] [place] [address] Performed By: #### 5 7021-8 #### [facility] CLIA [id number] [address] Eosinophils/100 WBC (Bld) 4.5 % Normal [facility] Comment on above: Order Comment: Speci men Type: BLOOD SPECIMEN Ordering Facility: [facility] Address: [address] [place] [address] Performed By: #### 5 7021-8 #### [facility] CLIA [id number] [address] Erythrocyte distribution width (RBC) [Ratio] 15.5 % High 11.5-15.0 [facility] Comment on above: Order Comment: Speci men Type: BLOOD SPECIMEN Ordering Facility: [facility] Address: [address] [place] [address] Performed By: #### 5 7021-8 #### [facility] CLIA [id number] [address] [place] Hematocrit (Bld) [Volume fraction] 38.3 % Low 39.0-51.0 [facility] Comment on above: Order Comment: Speci men Type: BLOOD SPECIMEN Ordering Facility: [facility] Address: [address] [place] [address] Performed By: #### 5 7021-8 #### [facility] CLIA [id number] [address] [place] Hemoglobin (Bld) [Mass/Vol] 12.0 g/dL Low 13.0-17.0 [facility] Comment on above: Order Comment: Speci men Type: BLOOD SPECIMEN Ordering Facility: [facility] Address: [address] [place] [address] Performed By: #### 5 7021-8 #### [facility] CLIA [id number] [address] IMMATURE GRAN % 0.6 % Normal [facility] Comment on above: Order Comment: Speci men Type: BLOOD SPECIMEN Ordering Facility: [facility] Address: [address] [place] [address] Performed By: #### 5 7021-8 #### [facility] CLIA [id number] [address] IMMATURE GRAN ABS 0.04 k/uL Normal <0.10 [facility] Comment on above: Order Comment: Speci men Type: BLOOD SPECIMEN Ordering Facility: [facility] Address: [address] [place] [address] Performed By: #### 5 7021-8 #### [facility] CLIA [id number] [address] Lymphocytes (Bld) [#/Vol] 1.01 10*3/uL Normal 1.00-4.00 [facility] Comment on above: Order Comment: Speci men Type: BLOOD SPECIMEN Ordering Facility: [facility] Address: [address] [place] [address] Performed By: #### 5 7021-8 #### [facility] CLIA [id number] [address] Lymphocytes/100 WBC (Bld) 14.6 % Normal [facility] Comment on above: Order Comment: Speci men Type: BLOOD SPECIMEN Ordering Facility: [facility] Address: [address] [place] [address] Performed By: #### 5 7021-8 #### [facility] CLIA [id number] [address] MCH (RBC) [Entitic mass] 28.8 pg Normal 26.0-34.0 [facility] Comment on above: Order Comment: Speci men Type: BLOOD SPECIMEN Ordering Facility: [facility] Address: [address] [place] [address] Performed By: #### 5 7021-8 #### [facility] CLIA [id number] [address] MCHC (RBC) [Mass/Vol] 31.3 g/dL Normal 30.5-36.0 [facility] Comment on above: Order Comment: Speci men Type: BLOOD SPECIMEN Ordering Facility: [facility] Address: [address] [place] [address] Performed By: #### 5 7021-8 #### [facility] CLIA [id number] [address] MCV (RBC) [Entitic vol] 92.1 fL Normal 80.0-100.0 [facility] Comment on above: Order Comment: Speci men Type: BLOOD SPECIMEN Ordering Facility: [facility] Address: [address] [place] [address] Performed By: #### 5 7021-8 #### [facility] CLIA [id number] [address] Monocytes (Bld) [#/Vol] 0.65 10*3/uL Normal <0.87 [facility] Comment on above: Order Comment: Speci men Type: BLOOD SPECIMEN Ordering Facility: [facility] Address: [address] [place] [address] Performed By: #### 5 7021-8 #### [facility] CLIA [id number] [address] Monocytes/100 WBC (Bld) 9.4 % Normal [facility] Comment on above: Order Comment: Speci men Type: BLOOD SPECIMEN Ordering Facility: [facility] Address: [address] [place] [address] Performed By: #### 5 7021-8 #### [facility] CLIA [id number] [address] [place] Neutrophils (Bld) [#/Vol] 4.87 10*3/uL Normal 1.45-7.50 [facility] Comment on above: Order Comment: Speci men Type: BLOOD SPECIMEN Ordering Facility: [facility] Address: [address] [place] [address] Performed By: #### 5 7021-8 #### [facility] CLIA [id number] [address] [place] Neutrophils/100 WBC (Bld) 70.3 % Normal [facility] Comment on above: Order Comment: Speci men Type: BLOOD SPECIMEN Ordering Facility: [facility] Address: [address] [place] [address] Performed By: #### 5 7021-8 #### [facility] CLIA [id number] [address] [place] Nucleated RBC (Bld) [#/Vol] 10*3/uL Normal <0.01 [facility] Comment on above: Order Comment: Speci men Type: BLOOD SPECIMEN Ordering Facility: [facility] Address: [address] [place] [address] Performed By: #### 5 7021-8 #### [facility] CLIA [id number] [address] Nucleated RBC/100 WBC (Bld) [Ratio] 0.0 /100 WBC Normal [facility] Comment on above: Order Comment: Speci men Type: BLOOD SPECIMEN Ordering Facility: [facility] Address: [address] [place] [address] Performed By: #### 5 7021-8 #### [facility] CLIA [id number] [address] [place] Platelet mean volume (Bld) [Entitic vol] 9.3 fL Normal 9.0-12.7 [facility] Comment on above: Order Comment: Speci men Type: BLOOD SPECIMEN Ordering Facility: [facility] Address: [address] [address] Performed By: #### 5 7021-8 #### [facility] CLIA [id number] [address] Platelets (Bld) [#/Vol] 329 10*3/uL Normal 150-400 [facility] Comment on above: Order Comment: Speci men Type: BLOOD SPECIMEN Ordering Facility: [facility] Address: [address] [place] [address] Performed By: #### 5 7021-8 #### [facility] CLIA [id number] [address] RBC (Bld) [#/Vol] 4.16 10*6/uL Low 4.20-6.00 [facility] Comment on above: Order Comment: Speci men Type: BLOOD SPECIMEN Ordering Facility: [facility] Address: [address] [place] [address] Performed By: #### 5 7021-8 #### [facility] CLIA [id number] [address] WBC (Bld) [#/Vol] 6.92 10*3/uL Normal 3.70-11.00 [facility] Comment on above: Order Comment: Speci men Type: BLOOD SPECIMEN Ordering Facility: [facility] Address: [address] [place] [address] Performed By: #### 5 7021-8 #### [facility] CLIA [id number] [address] CONSULTon 11-09-2021 CONSULT HNO ID: [id number] Author: Eduard Roldan MD Service: Urology Author Type: Resident Type: Consults Filed: 11/09/2021 5:29 PM Note Text: Attestation signed by Eben Cummins MD at 11/10/2021 11:01 AM Urology Attending Attestation: Discussed with the resident and agree with resident's findings and plan as documented in the resident's note. Eben Cummins MD [facility] [facility] 11/09/2021 HISTORY OF PRESENT ILLNESS: The patient is a 75 year old male unknown to this urology service with pmhx of BPH s/p TURP who presents to [facility] due to complains of blood in urine and around penis since Thursday. He had a 22F [address] way catheter placed and was advised to come to [facility]. Upon evaluation, patient has a 22F espinoza catheter with no signs of hematuria. Urine is clear yellow. Patient states that he has had some bleeding around the penis however the espinoza catheter has not clotted. He denies any dysuria, urgency or frequency. Patient denies any fevers, chills, nausea or vomiting. 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 posterior anal skin ulcer - REPAIR ING HERNIA,5+Y/O,REDUCIBL 03-17-11 RIGHT - REPAIR SLIDING INGUINAL HERNIA right - THORACOSCOPY THYMECTOMY Robotic - TONSILLECTOMY AND ADENOIDECTOMY HX - TRANSURETHRAL ELEC-SURG PROSTATECTOM ALLERGIES: ALLERGIES Allergen Reactions - Cefuroxime Axetil Rash - Cephalexin Unknown - Levaquin [Levofloxa* Made pt feel achey - Lisinopril Unknown HOME MEDICATIONS: (Not in a hospital admission) FAMILY HISTORY: Family History Problem Relation Age of Onset - Breast Cancer Mother - Hypertension Mother lived into her 90's - Breast Cancer Sister - Cancer Paternal Uncle prostate cancer - Hypertension Father - Ischemic Heart Disease Father sudden , age 75, no autopsy - Prostate Cancer Paternal Uncle - Stroke Paternal Uncle - Diabetes Other none - Colon Cancer Other none - Ischemic Heart Disease Brother 80 age 61 - Cancer Brother prostate - other (BPH) Brother - Aneurysm Brother aortic (5.0cm) - Coronary Artery Disease Brother 3 heart stents - other (enlarged prostate) Brother - Cancer Brother prostate - Hypertension Brother - other (bipolar) Son Manic depressive - Cancer Brother melanoma Social History: Tobacco Use: Never Alcohol Use: No ROS: Constitutional: negative for chills and fevers HEENT: no blurry vision or eye redness Respiratory: negative for hemoptysis and shortness of breath Cardiovascular: negative for dyspnea and syncope Gastrointestinal: negative for jaundice, nausea and vomiting Genitourinary:negativ e for dysuria and hematuria Hematologic/lymphatic : negative for bleeding Integumentary: no new bruises or lesions Musculoskeletal:negat rosanne for muscle weakness Neurological: negative for coordination problems and seizures All other systems negative PHYSICAL EXAM: VITALS: 11/09/21 1154 11/09/21 1528 11/09/21 1644 11/09/21 1646 BP: 164/100 173/99 153/97 153/97 Pulse: 59 65 62 Resp: 18 18 16 Temp: 37 ?C (98.6 ?F) TempSrc: Oral SpO2: 98% 98% 100% Weight: 70.3 kg (155 lb) Height: 162.6 cm (5' 4) General: Alert, in no acute distress Head: Normocephalic, atraumatic Neck: supple, trachea is midline, no obvious masses Respiratory: normal effort, no audible wheezes Cardiovascular: regular pulse and no cyanosis Musculoskeletal: moving all extremities, normal tone Skin: warm and dry Psych: normal mood and affect, oriented Abdomen: soft, non distended, non tender, no organomegaly, no hernias : 22F espinoza catheter with clear yellow urine, no hematuria DATA: LABS: BMP: . Glucose (mg/dL) Date Value 11/09/2021 99 06/08/2018 93 Potassium (mmol/L) Date Value 11/09/2021 4.2 06/08/2018 4.2 Sodium (mmol/L) Date Value 11/09/2021 140 06/08/2018 139 Chloride (mmol/L) (more content not included)... Normal [facility] ED NOTEon 11-09-2021 ED NOTE HNO ID: [id number] Author: Nubia Whatley RN Service: Nursing Author Type: Registered Nurse Type: ED Notes Filed: 11/09/2021 4:56 PM Note Text: Ct notified that patient ready for tests Normal [facility] ED NOTE HNO ID: [id number] Author: Nubia Whatley RN Service: Nursing Author Type: Registered Nurse Type: ED Notes Filed: 11/09/2021 5:26 PM Note Text: Ed resident notified of irrigations completion Normal [facility] ED NOTE HNO ID: [id number] Author: Nubia Whatley RN Service: Nursing Author Type: Registered Nurse Type: ED Notes Filed: 11/09/2021 4:45 PM Note Text: Irrigation done. Patient had several small clots noted, also had leaking around meatus Normal [facility] ED NOTE HNO ID: [id number] Author: Cele Painter RN Service: ? Author Type: Registered Nurse Type: ED Notes Filed: 11/09/2021 3:57 PM Note Text: Bed: 34-ED Expected date: Expected time: Means of arrival: Comments: TRIAGE Normal [facility] ED PROV NOTEon 11-09-2021 ED PROV NOTE HNO ID: [id number] Author: Nathaly Ceballos MD Service: Emergency Medicine Author Type: Physician Type: ED Provider Notes Filed: 11/09/2021 5:29 PM Note Text: The patient presents to the emerge department with painless hematuria that has been present for the past 5 days. He has been seen several several times at [facility] where they irrigated him clear. The patient had an MRI recently and is on Brilinta, aspirin, and Coumadin. His change control specialist states that he must remain on these medications. They did hold his Coumadin for an elevated INR. Patient denies any fever, trauma, melena, or hematochezia. He also denies bleeding in other sites. Patient's vital signs are stable. He is afebrile with a room air pulse ox of 100%. His skin is pink, warm, dry. His chest is clear. His abdomen is soft nontender with no palpable distended bladder. His genitourinary exam is unremarkable with no visible swelling or trauma. He is alert and nontoxic-appearing with a nonfocal exam. Neurovascular status is intact. Urinalysis demonstrates 11-25 RBCs in his urine with 0-5 WBCs. His white blood cell count is 6.92 with a hemoglobin of 12. His INR is 1.6. His BMP is within normal limits with a glucose of 99. Urology was consulted. They were able to irrigate the patient clear. There were no clots formed. They state that he is stable to go home. He has been discharged in stable condition with instructions to return if worse or contact urology to be seen. He is currently in stable condition. Nathaly Ceballos MD 11/09/21 1729 Normal [facility] ED PROV NOTE HNO ID: [id number] Author: Nathaly Ceballos MD Service: Emergency Medicine Author Type: Physician Type: ED Provider Notes Filed: 11/09/2021 6:10 PM Note Text: ED Provider Note Patient Name: Hang Keenan : 1945 SERVICE DATE: 11/09/21 History Patient presents with: Espinoza Cath Problem: Pt states he was having blood in urine since thursday, Espinoza inplace in triage. Pt states espinoza was placed . Pt states he has been to [place] ED several times this week, and had 3way foleys placed. Pt states he was having bleeding in espinoza again and was advised to come in. Pt currently on blood thinners for cardiac stents. 300cc output noted in espinoza bag in triage The patient is a 75-year-old male with a past medical history of thymoma status postresection, SERGO, HTN, aortic stenosis, CAD status post recent PCI, and BPH status post TURP who presents to the emergency department for chief complaint of hematuria. The patient states that he has been experiencing gross hematuria since 11/05/2021. He notes that he was passing large clots; therefore, he went to the [place] ED on that day. He states that he had an 18 British three-way catheter placed and went home. He continues to have hematuria and clots at home. He states that he was urinating blood clots around his penis. He returned to the ED on 11/07/21 and actually had two seperate ED visits for again hematuria. He had his catheter exchanged for a 22 British three-way catheter and was discharged with instructions for home irrigation. His states that she is been irrigating the catheter at home. However, she has been unable to do so since last night as she is now meeting resistance. The patient states that he is intermittently having some bladder spasms. He is currently on Macrobid for a UTI. Of note, the patient recently started Coumadin, aspirin, and Brilinta as he had a recent PCI on 09/14/2021 and 10/01/2021. His Coumadin was discontinued during the onset of his hematuria; however, he still on aspirin and Brilinta per cardiology recommendations. He denies fevers, chills, nausea, vomiting, and back pain. The patient follows with Dr. Briones, urology, in [place] ED. Unfortunately, Dr. Briones, was on vacation and referred him to [facility] as he may need a cystoscopy. 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 posterior anal skin ulcer - REPAIR ING HERNIA,5+Y/O,REDUCIBL 03-17-11 RIGHT - REPAIR SLIDING INGUINAL HERNIA right - THORACOSCOPY THYMECTOMY Robotic - TONSILLECTOMY AND ADENOIDECTOMY HX - TRANSURETHRAL ELEC-SURG PROSTATECTOM FAMILY HISTORY Problem Relation Age of Onset - Breast Cancer Mother - Hypertension Mother lived into her 90's - Breast Cancer Sister - Cancer Paternal Uncle prostate cancer - Hypertension Father - Ischemic Heart Disease Father sudden , age 75, no autopsy - Prostate Cancer Paternal Uncle - Stroke Paternal Uncle - Diabetes Other none - Colon Cancer Other none - Ischemic Heart Disease Brother 80 age 61 - Cancer Brother prostate - other (BPH) Brother - Aneurysm Brother aortic (5.0cm) - Coronary Artery Disease Brother 3 heart stents - other (enlarged prostate) Brother - Cancer Brother prostate - Hypertension Brother - other (bipolar) Son Manic depressive - Cancer Brother melanoma Social History Tobacco Use - Smoking status: Never Smoker - Smokeless tobacco: Never Used Substance and Sexual Activity - Alcohol use: No - Drug use: No - Sexual activity: Yes Partners: Female ALLERGIES Allergen Reactions - Cefuroxime Axetil Rash - Cephalexin Unknown - Levaquin [Levofloxa* Made pt feel achey - Lisinopril Unknown Review of Systems Constitutional: Negative for chills and fever. Respiratory: Negative for cough and shortness of breath. Cardiovascular: Negative for chest pain. Gastrointestinal: Negative for abdominal pain, diarrhea, nausea and vomiting. Genitourinary: Positive for dysuria, hematuria and penile pain. Negative for flank pain, scrotal swelling and testicular pain. Skin: Negative for rash. Neurological: Negative for dizziness and headaches. All other systems reviewed and (more content not included)... Normal [facility] ED Triage Noteon 11-09-2021 ED Triage Note HNO ID: [id number] Author: Tapan Sales APRN.FACILITY MAINTENANCE WORKER Service: Emergency Medicine Author Type: Nurse Practitioner Type: ED Triage Notes Filed: 11/09/2021 12:46 PM Note Text: ED INTAKE NOTE Patient Name: Hang Keenan Service Date: 11/09/21 BRIEF HPI: 75-year-old comes in with complaints of ongoing hematuria. Patient does have a Espinoza catheter secondary to his hematuria does have a urologist that he sees they are doing home irrigations states there was some resistance today and hematuria has gotten better with a car coming in for further evaluation. Also was diagnosed recently with a UTI is on antibiotics he was on Coumadin and was taken off on Thursday last INR check was 1.8. Recently has had cardiac stents is on Brilinta and aspirin still taking his Brilinta and aspirin denies any abdominal pain or any other associated symptoms at this time. BRIEF EXAM: Awake and Alert RRR CTAB Abd soft/NT/ND; no rebound/guarding Espinoza cath with noted hematuria INTAKE WORKUP: Bloodwork: CBC BMP Coags Urinalysis SIGNATURE: Tapan Sales APRN.CNP Normal [facility] PT panel Coag (PPP)on 2021 INR Coag (PPP) [Relative time] 1.6 {INR} High 0.9-1.3 [facility] Comment on above: Order Comment: Speci men Type: BLOOD SPECIMENOrdering Facility: [facility] Address: [address] [place] [id number] Result Comment: Anne Marie min K Antagonist (VKA) Therapeutic Range: INR 2 to 3 (Target INR of 2.5) Note: For patients treated with VKA drugs, such as warfarin, the [employer] 2012 Guideline recommends a therapeutic INR range of 2 to 3 (target INR of 2.5). This recommendation includes high-risk patients with antiphospholipid syndrome with previous arterial or venous thromboembolism, current-generation mechanical or bioprosthetic aortic heart valve replacement. Note: Patients with mechanical aortic valve replacement and additional risk factors for thromboembolic events (atrial fibrillation, previous thromboembolism, LV dysfunction, hypercoagulable conditions) or an older generation mechanical AVR (i.e., ball in-Cage) or any mechanical MVR should have a INR therapeutic range of 2.5 to 3.5 (target INR of 3). Guyatt GH, et al. Chest 2012, 141:7S-47S Jaci RA, et al. [facility] 2017, 70: 252-289 Performed By: #### 3 4528-0 ####[facility] LABORATORYCLIA [id number] [address] PT Coag (PPP) [Time] 17.3 s High 9.7-13.0 [facility] Comment on above: Order Comment: Speci men Type: BLOOD SPECIMENOrdering Facility: [facility] Address: [address] [place] [address] Performed By: #### 3 4528-0 ####[facility] LABORATORYCLIA [id number] [address] Urinalysis complete panel (U )on 11-09-2021 Bacteria LM.HPF (Urine sed) [#/Area] Few Abnormal None Seen [facility] Comment on above: Order Comment: Speci men Type: URINE SPECIMEN [facility] Facility[facility] Address: [address] [place] [address] Performed By: #### 2 4356-8 #### [facility] CLIA [id number] [address] [place] [address] Bilirubin Ql (U) Negative Normal Negative [facility] Comment on above: Order Comment: Speci men Type: URINE SPECIMEN [facility] Facility[facility] Address: [address] [place] [address] Performed By: #### 2 4356-8 #### [facility] CLIA [id number] [address] [place] [address] Clarity (Unsp spec) Clear Normal Clear [facility] Comment on above: Order Comment: Speci men Type: URINE SPECIMEN [facility] Address: [address] [place] [address] Performed By: #### 2 4356-8 #### [facility] CLIA [id number] [address] Color (U) Light Brown Abnormal yellow [facility] Comment on above: Order Comment: Speci men Type: URINE SPECIMEN [facility] Address: [address] [place] [address] Performed By: #### 2 4356-8 #### [facility] CLIA [id number] [address] Epithelial cells LM.HPF (Urine sed) [#/Area] Few Abnormal None Seen [facility] Comment on above: Order Comment: Speci men Type: URINE SPECIMEN [facility] Address: [address] [place] [address] Performed By: #### 2 4356-8 #### [facility] CLIA [id number] [address] Glucose Test strip (U) [Mass/Vol] Negative Normal Negative [facility] Comment on above: Order Comment: Speci men Type: URINE SPECIMEN [facility] Address: [address] [place] [address] Performed By: #### 2 4356-8 #### [facility] CLIA [id number] [address] Hemoglobin Ql (U) 3+ Abnormal Negative [facility] Comment on above: Order Comment: Speci men Type: URINE SPECIMEN [facility] Address: [address] [place] [address] Performed By: #### 2 4356-8 #### [facility] CLIA [id number] [address] OF [facility] Ketones Ql (U) Negative Normal Negative [facility] Comment on above: Order Comment: Speci men Type: URINE SPECIMEN [facility] Address: [address] [place] [address] Performed By: #### 2 4356-8 #### [facility] CLIA [id number] [address] [place] Leukocyte esterase Test strip Ql (U) 75 Juan Ramon/mL Abnormal Negative [facility] Comment on above: Order Comment: Speci men Type: URINE SPECIMEN [facility] Address: [address] [place] [address] Performed By: #### 2 4356-8 #### [facility] CLIA [id number] [address] [place] Nitrite Ql (U) Negative Normal Negative [facility] Comment on above: Order Comment: Speci men Type: URINE SPECIMEN [facility] Address: [address] [place] [address] Performed By: #### 2 4356-8 #### [facility] CLIA [id number] [address] [place] pH (U) 6.0 [pH] Normal 5.0-8.0 [facility] Comment on above: Order Comment: Speci men Type: URINE SPECIMEN [facility] Address: [address] [place] [address] Performed By: #### 2 4356-8 #### [facility] CLIA [id number] [address] [place] [facility] Protein (U) [Mass/Vol] Normal [facility] Comment on above: Order Comment: Speci men Type: URINE SPECIMEN [facility] Address: [address] [place] [address] Result Comment: Visi ble blood causes falsely elevated results for analyte Protein. Due to this limitation, Protein will not be reported for patients whose urine contains visible blood. Performed By: #### 2 4356-8 #### [facility] CLIA [id number] [address] [place] RBC LM.HPF (Urine sed) [#/Area] 11-25 /HPF Abnormal 0-3 /HPF [facility] Comment on above: Order Comment: Speci men Type: URINE SPECIMEN [facility] Address: [address] [place] [address] Performed By: #### 2 4356-8 #### [facility] CLIA [id number] [address] Specific gravity (U) [Rel density] 1.004 Low 1.005-1.030 [facility] Comment on above: Order Comment: Speci men Type: URINE SPECIMEN [facility] Address: [address] [place] [address] Performed By: #### 2 4356-8 #### [facility] CLIA [id number] [address] Urobilinogen Ql (U) Normal Normal Negative [facility] Comment on above: Order Comment: Speci men Type: URINE SPECIMEN [facility] Address: [address] [place] [address] Performed By: #### 2 4356-8 #### [facility] CLIA [id number] [address] WBC LM.HPF (Urine sed) [#/Area] 0-5 /HPF Normal 0-5 /HPF [facility] Comment on above: Order Comment: Speci men Type: URINE SPECIMEN [facility] Address: [address] [place] [address] Performed By: #### 2 4356-8 #### [facility] CLIA [id number] [address] Absolute lymphocyte counton 11-07-2021 Lymphocytes Auto (Unsp spec) [#/Vol] 1.07 10*3/uL 0.83-4.51 [facility] Work Phone: Basophil percentageon 2021 Basophils/100 WBC (Bld) 0.5 % 0-1 [facility] Work Phone: Bilirubin [Mass/Vol] 0.70 mg/dL 0.20-1.00 [facility] Work Phone: Comment on above: For patients on eltr ombopag therapy, use of Dimension [place] TBIL is not recommended. Chloride [Moles/Vol] 109 mmol/L 98-107 [facility] Work Phone: [phone] Eosinophils/100 WBC (Bld) 3.3 % 0-5 [facility] Work Phone: Glucose [Mass/Vol] 84 mg/dL 74-106 [facility] Work Phone: [phone] Neutrophils (Bld) [#/Vol] 5.6 10*3/uL 2.0-7.7 [facility] Work Phone: [phone] Neutrophils/100 WBC (Bld) 73.8 % 47-70 [facility] Work Phone: Potassium [Moles/Vol] 4.0 mmol/L 3.5-5.1 [facility] Work Phone: Protein [Mass/Vol] 7.6 g/dL 6.4-8.2 [facility] Work Phone: Sodium [Moles/Vol] 139 mmol/L 136-145 [facility] Work Phone: WBC (Bld) [#/Vol] 7.6 10*3/uL 4.4-11.0 [facility] Work Phone: Basophil percentage 10-25 SEEN /hpf 0-5 [facility] Work Phone: Bilirubin Test strip Ql (U)o n 11-07-2021 Bilirubin Ql (U) Negative Negative [facility] Work Phone: Blood erythrocytes count (nu mber/volume)on 11-07-2021 RBC (Bld) [#/Vol] 4.50 10*6/uL 4.6-6.2 [facility] Work Phone: Blood hemoglobin measurement (mass/volume)on 11-07-2021 Hemoglobin (Bld) [Mass/Vol] 13.2 g/dL 13.0-16.5 [facility] Work Phone: Blood lymphocytes/100 leukoc yteson 11-07-2021 Lymphocytes/100 WBC (Bld) 14.0 % 19-41 [facility] Work Phone: Blood monocytes/100 leukocyt eson 11-07-2021 Monocytes/100 WBC (Bld) 8.0 % 0-10 [facility] Work Phone: Blood platelet mean volumeon 11-07-2021 Platelet mean volume (Bld) [Entitic vol] 9.2 fL 6.2-12.0 [facility] Work Phone: Determination of erythrocyte mean corpuscular volume (MCV)on 11-07-2021 MCV (RBC) [Entitic vol] 89.1 fL 80-94 [facility] Work Phone: Hematocrit Auto (Bld) [Volum e fraction]on 11-07-2021 Hematocrit (Bld) [Volume fraction] 40.1 % 40-54 [facility] Work Phone: INR in Blood by Coagulation assayon 11-07-2021 INR Coag (Bld) [Relative time] 2.8 {INR} [facility] Work Phone: Ketones Test strip Ql (U)on 11-07-2021 Ketones Ql (U) 5 mg/dl Negative [facility] Work Phone: Laboratory - Chemistry and C hemistry - challengeon 11-07-2021 ALP [Catalytic activity/Vol] 65 U/L 45-117 [facility] Work Phone: ALT [Catalytic activity/Vol] 20 U/L 16-61 [facility] Work Phone: CO2 [Moles/Vol] 25.0 mmol/L 21.0-32.0 [facility] Work Phone: Globulin (S) [Mass/Vol] 3.7 g/dL 2.2-4.2 [facility] Work Phone: Urea nitrogen/Creatinine [Mass ratio] 19.6 mg/mg 10-20 [facility] Work Phone: Laboratory - Coagulationon 0 11-07-2021 PT Coag (PPP) [Time] 29.3 s 11.7-14.9 [facility] Work Phone: Laboratory - Hematology and Cell countson 11-07-2021 Erythrocyte distribution width (RBC) [Entitic vol] 50.5 fL 35.1-43.9 [facility] Work Phone: Erythrocyte distribution width (RBC) [Ratio] 15.5 % 11.6-14.6 [facility] Work Phone: Immature granulocytes/100 WBC (Bld) 0.400 % 0.0-0.9 [facility] Work Phone: Comment on above: IG% - Immature Granu locytes (promyelocytes, myelocytes and metamyelocytes) > 1% indicates that a LEFT SHIFT is Present. MCH (RBC) [Entitic mass] 29.3 pg 27.0-32.0 [facility] Work Phone: Nucleated RBC/100 WBC (Bld) [Ratio] 0 % 0-5 [facility] Work Phone: MCHC Auto (RBC) [Mass/Vol]on 11-07-2021 MCHC (RBC) [Mass/Vol] 32.9 g/dL 32-36 [facility] Work Phone: Mucus LM Ql (Urine sed)on Mucus Ql (Urine sed) 0 SEEN /hpf [facility] Work Phone: Nitrite Test strip Ql (U)on 11-07-2021 Nitrite Ql (U) Negative Negative [facility] Work Phone: No Panel Informationon 11-07 Estimated Creatinine Clearance Calc 53.40 ml/min [facility] Work Phone: Estimated GFR (MDRD) Amer 96 mL/min >60 [facility] Work Phone: Comment on above: GFR Calc Estimated GFR (MDRD) Non-Af Amer 80 mL/min >60 [facility] Work Phone: Comment on above: Non- GFR Calc Platelets bldon 11-07-2021 Platelets (Bld) [#/Vol] 326 10*3/uL 150-450 [facility] Work Phone: Protein Test strip Ql (U)on 11-07-2021 Protein Ql (U) 500 mg/dl Negative [facility] Work Phone: Serum or plasma albumin sharon urement (mass/volume)on 11-07-2021 Albumin [Mass/Vol] 3.9 g/dL 3.2-5.0 [facility] Work Phone: Serum or plasma albumin/glob ulin mass ratioon 11-07-2021 Albumin/Globulin [Mass ratio] 1.1 {ratio} 0.9-2.4 [facility] Work Phone: Serum or plasma calcium sharon urement (mass/volume)on 11-07-2021 Calcium [Mass/Vol] 9.4 mg/dL 8.5-10.1 [facility] Work Phone: Serum or plasma creatinine m easurement (mass/volume)on 11-07-2021 Creatinine [Mass/Vol] 0.97 mg/dL 0.70-1.30 [facility] Work Phone: Comment on above: The validity of the calculated GFR & GFRAA in patients over 70 years has not been determined. Clinical correlation is essential. Serum or plasma urea nitroge n measurement (mass/volume)on 11-07-2021 Urea nitrogen [Mass/Vol] 19 mg/dL 7-18 [facility] Work Phone: Squamous epithelial cells de tection in urine sediment by light microscopyon 11-07-2021 Epithelial cells.squamous LM Ql (Urine sed) 0-5 SEEN /hpf 0-5 [facility] Work Phone: Thin prep Papanicolaou smear with manual screeningon 11-07-2021 Thin prep Papanicolaou smear with manual screening 14 U/L 15-37 [facility] Work Phone: Thin prep Papanicolaou smear with manual screening 5 5-15 [facility] Work Phone: Urine blood detectionon 10-23 RBC Ql (U) 250 /ul Negative [facility] Work Phone: RBC Ql (U) 50-100 SEEN /hpf 0-5 [facility] Work Phone: Urine clarityon 11-07-2021 Clarity (U) Turbid Clear [facility] Work Phone: Urine color determinationon 11-07-2021 Color (U) Red Yellow [facility] Work Phone: Urine glucose detectionon Glucose Ql (U) Normal mg/dl Normal [facility] Work Phone: Urine leukocyte esterase det ection by dipstickon 11-07-2021 Leukocyte esterase Test strip Ql (U) 100 /ul Negative [facility] Work Phone: Urine pHon 11-07-2021 pH (U) 7.0 [pH] 5.0 - 8.0 [facility] Work Phone: Urine sediment bacteria coun t by microscopy (number/high power field)on 11-07-2021 Bacteria LM.HPF (Urine sed) [#/Area] 1 /[HPF] None Seen [facility] Work Phone: Urine specific gravity measu rementon 11-07-2021 Specific gravity (U) [Rel density] 1.010 1.002-1.030 [facility] Work Phone: Urobilinogen Auto test strip Ql (U)on 11-07-2021 Urobilinogen Ql (U) Normal mg/dl Normal [facility] Work Phone: Absolute lymphocyte counton 10-02-2021 Lymphocytes Auto (Unsp spec) [#/Vol] 1.20 10*3/uL 0.83-4.51 [facility] Work Phone: Basophil percentageon 2021 Basophils/100 WBC (Bld) 0.6 % 0-1 [facility] Work Phone: [phone] Bilirubin [Mass/Vol] 1.00 mg/dL 0.20-1.00 [facility] Work Phone: Comment on above: For patients on eltr ombopag therapy, use of Dimension [place] TBIL is not recommended. Chloride [Moles/Vol] 108 mmol/L 98-107 [facility] Work Phone: Eosinophils/100 WBC (Bld) 5.6 % 0-5 [facility] Work Phone: [phone] Glucose [Mass/Vol] 87 mg/dL 74-106 [facility] Work Phone: [phone] Neutrophils (Bld) [#/Vol] 4.9 10*3/uL 2.0-7.7 [facility] Work Phone: [phone] Neutrophils/100 WBC (Bld) 68.3 % 47-70 [facility] Work Phone: [phone] Potassium [Moles/Vol] 4.1 mmol/L 3.5-5.1 [facility] Work Phone: [phone] Protein [Mass/Vol] 7.2 g/dL 6.4-8.2 [facility] Work Phone: [phone] Sodium [Moles/Vol] 138 mmol/L 136-145 [facility] Work Phone: [phone] WBC (Bld) [#/Vol] 7.1 10*3/uL 4.4-11.0 [facility] Work Phone: [phone] Blood erythrocytes count (nu mber/volume)on 10-02-2021 RBC (Bld) [#/Vol] 4.57 10*6/uL 4.6-6.2 [facility] Work Phone: [phone] Blood hemoglobin measurement (mass/volume)on 10-02-2021 Hemoglobin (Bld) [Mass/Vol] 13.5 g/dL 13.0-16.5 [facility] Work Phone: Blood lymphocytes/100 leukoc yteson 10-02-2021 Lymphocytes/100 WBC (Bld) 16.9 % 19-41 [facility] Work Phone: [phone] Blood monocytes/100 leukocyt eson 10-02-2021 Monocytes/100 WBC (Bld) 8.0 % 0-10 [facility] Work Phone: Blood platelet mean volumeon 10-02-2021 Platelet mean volume (Bld) [Entitic vol] 9.1 fL 6.2-12.0 [facility] Work Phone: Determination of erythrocyte mean corpuscular volume (MCV)on 10-02-2021 MCV (RBC) [Entitic vol] 90.6 fL 80-94 [facility] Work Phone: Hematocrit Auto (Bld) [Volum e fraction]on 10-02-2021 Hematocrit (Bld) [Volume fraction] 41.4 % 40-54 [facility] Work Phone: Laboratory - Chemistry and C hemistry - challengeon 10-02-2021 ALP [Catalytic activity/Vol] 64 U/L 45-117 [facility] Work Phone: ALT [Catalytic activity/Vol] 26 U/L 16-61 [facility] Work Phone: CO2 [Moles/Vol] 23.0 mmol/L 21.0-32.0 [facility] Work Phone: Globulin (S) [Mass/Vol] 3.7 g/dL 2.2-4.2 [facility] Work Phone: Urea nitrogen/Creatinine [Mass ratio] 19.3 mg/mg 10-20 [facility] Work Phone: Laboratory - Hematology and Cell countson 10-02-2021 Erythrocyte distribution width (RBC) [Entitic vol] 57.0 fL 35.1-43.9 [facility] Work Phone: Erythrocyte distribution width (RBC) [Ratio] 17.2 % 11.6-14.6 [facility] Work Phone: Immature granulocytes/100 WBC (Bld) 0.600 % 0.0-0.9 [facility] Work Phone: Comment on above: IG% - Immature Granu locytes (promyelocytes, myelocytes and metamyelocytes) > 1% indicates that a LEFT SHIFT is Present. MCH (RBC) [Entitic mass] 29.5 pg 27.0-32.0 [facility] Work Phone: Nucleated RBC/100 WBC (Bld) [Ratio] 0 % 0-5 [facility] Work Phone: MCHC Auto (RBC) [Mass/Vol]on 10-02-2021 MCHC (RBC) [Mass/Vol] 32.6 g/dL 32-36 [facility] Work Phone: No Panel Informationon 10-02 Estimated Creatinine Clearance Calc 49.37 ml/min [facility] Work Phone: Estimated GFR (MDRD) Amer 84 mL/min >60 [facility] Work Phone: Comment on above: GFR Calc Estimated GFR (MDRD) Non-Af Amer 70 mL/min >60 [facility] Work Phone: Comment on above: Non- GFR Calc Platelets bldon 10-02-2021 Platelets (Bld) [#/Vol] 343 10*3/uL 150-450 [facility] Work Phone: Serum or plasma albumin sharon urement (mass/volume)on 10-02-2021 Albumin [Mass/Vol] 3.5 g/dL 3.2-5.0 [facility] Work Phone: Serum or plasma albumin/glob ulin mass ratioon 10-02-2021 Albumin/Globulin [Mass ratio] 0.9 {ratio} 0.9-2.4 [facility] Work Phone: Serum or plasma calcium sharon urement (mass/volume)on 10-02-2021 Calcium [Mass/Vol] 8.7 mg/dL 8.5-10.1 [facility] Work Phone: Serum or plasma creatinine m easurement (mass/volume)on 10-02-2021 Creatinine [Mass/Vol] 1.09 mg/dL 0.70-1.30 [facility] Work Phone: Comment on above: The validity of the calculated GFR & GFRAA in patients over 70 years has not been determined. Clinical correlation is essential. Serum or plasma urea nitroge n measurement (mass/volume)on 10-02-2021 Urea nitrogen [Mass/Vol] 21 mg/dL 7-18 [facility] Work Phone: Thin prep Papanicolaou smear with manual screeningon 10-02-2021 Thin prep Papanicolaou smear with manual screening 17 U/L 15-37 [facility] Work Phone: Thin prep Papanicolaou smear with manual screening 7 5-15 [facility] Work Phone: Basophil percentageon 2021 Cholesterol [Mass/Vol] 169 mg/dL <200 [facility] Work Phone: Comment on above: <200 mg/dL Desirable 200-240 mg/dL Borderline >240 mg/dL High Risk Triglyceride [Mass/Vol] 86 mg/dL <199 [facility] Work Phone: Comment on above: The drugs N-Acetylcy steine and Metamizole may falsely depress this assay.Serum Triglycerides Reference Interval Normal <150 mg/dL Borderline high 150 - 199 mg/dL High 200 - 499 mg/dL Very High > or = 500 mg/dL Direct bilirubinon 2 Bilirubin.direct [Mass/Vol] 0.24 mg/dL 0.00-0.30 [facility] Work Phone: Laboratory - Coagulationon 0 10-01-2021 INR Coag (Bld) [Relative time] 1.0 {INR} [facility] Work Phone: Comment on above: Critical Value > 4.0 No Panel Informationon 10-01 Amiodarone Level See comment [facility] Work Phone: Comment on above: TEST RESULT LIMITSAm iodarone (Cordarone), S/P Amiodarone 460 Low ng/mL 3850-3803 Desethylamiodarone 294 ng/mL Note: To convert from ng/ml to ug/ml, divide the result by 1000. Reference range (amiodarone): 1.00-2.50 ug/mLThis test was developed and its performance characteristics determined by [employer]. It has not been cleared or approved by the Food and Drug Administration. TESTING PERFORMED AT [facility]. ORIGINAL REPORT ON FILE IN LAB CONTAINS ADDITIONAL TEST SITE INFORMATION. Noramiodarone Level Not Reportable [facility] Work Phone: Serum or plasma cholesterol in HDL measurement (mass/volume)on 10-01-2021 Cholesterol in HDL [Mass/Vol] 72 mg/dL >40 [facility] Work Phone: Comment on above: The drugs N-Acetylcy steine and Metamizole may falsely depress this assay. Reference Range HDL <40 mg/dL Low HDL Cholesterol HDL >or= 60 mg/dL High HDL Cholesterol Serum or plasma cholesterol in VLDL measurement (mass/volume)on 10-01-2021 Cholesterol in VLDL [Mass/Vol] 17 mg/dL 5-40 [facility] Work Phone: Serum or plasma low density lipoprotein (LDL) cholesterol measurement (mass/volume)on 10-01-2021 Cholesterol in LDL [Mass/Vol] 80 mg/dL 0-130 [facility] Work Phone: Whole blood prothrombin time on 10-01-2021 PT Coag (Bld) [Time] 12.8 s 11.7-14.9 [facility] Work Phone: Absolute lymphocyte counton 09-18-2021 Lymphocytes Auto (Unsp spec) [#/Vol] 1.07 10*3/uL 0.83-4.51 [facility] Work Phone: Basophil percentageon 2021 Basophils/100 WBC (Bld) 0.6 % 0-1 [facility] Work Phone: Chloride [Moles/Vol] 108 mmol/L 98-107 [facility] Work Phone: Eosinophils/100 WBC (Bld) 5.0 % 0-5 [facility] Work Phone: Glucose [Mass/Vol] 93 mg/dL 74-106 [facility] Work Phone: Neutrophils (Bld) [#/Vol] 5.8 10*3/uL 2.0-7.7 [facility] Work Phone: Neutrophils/100 WBC (Bld) 70.4 % 47-70 [facility] Work Phone: Potassium [Moles/Vol] 4.0 mmol/L 3.5-5.1 [facility] Work Phone: Sodium [Moles/Vol] 140 mmol/L 136-145 [facility] Work Phone: WBC (Bld) [#/Vol] 8.2 10*3/uL 4.4-11.0 [facility] Work Phone: Blood erythrocytes count (nu mber/volume)on 09-18-2021 RBC (Bld) [#/Vol] 4.89 10*6/uL 4.6-6.2 [facility] Work Phone: Blood hemoglobin measurement (mass/volume)on 09-18-2021 Hemoglobin (Bld) [Mass/Vol] 14.5 g/dL 13.0-16.5 [facility] Work Phone: Blood lymphocytes/100 leukoc yteson 09-18-2021 Lymphocytes/100 WBC (Bld) 13.1 % 19-41 [facility] Work Phone: [phone] Blood monocytes/100 leukocyt eson 09-18-2021 Monocytes/100 WBC (Bld) 10.3 % 0-10 [facility] Work Phone: Blood platelet mean volumeon 09-18-2021 Platelet mean volume (Bld) [Entitic vol] 8.8 fL 6.2-12.0 [facility] Work Phone: Determination of erythrocyte mean corpuscular volume (MCV)on 09-18-2021 MCV (RBC) [Entitic vol] 90.2 fL 80-94 [facility] Work Phone: Hematocrit Auto (Bld) [Volum e fraction]on 09-18-2021 Hematocrit (Bld) [Volume fraction] 44.1 % 40-54 [facility] Work Phone: INR in Blood by Coagulation assayon 09-18-2021 INR Coag (Bld) [Relative time] 1.6 {INR} [facility] Work Phone: Laboratory - Chemistry and C hemistry - challengeon 09-18-2021 CO2 [Moles/Vol] 25.0 mmol/L 21.0-32.0 [facility] Work Phone: Urea nitrogen/Creatinine [Mass ratio] 21.8 mg/mg 10-20 [facility] Work Phone: Laboratory - Coagulationon 0 09-18-2021 PT Coag (PPP) [Time] 18.4 s 11.7-14.9 [facility] Work Phone: Laboratory - Hematology and Cell countson 09-18-2021 Erythrocyte distribution width (RBC) [Entitic vol] 56.8 fL 35.1-43.9 [facility] Work Phone: Erythrocyte distribution width (RBC) [Ratio] 17.1 % 11.6-14.6 [facility] Work Phone: Immature granulocytes/100 WBC (Bld) 0.600 % 0.0-0.9 [facility] Work Phone: Comment on above: IG% - Immature Granu locytes (promyelocytes, myelocytes and metamyelocytes) > 1% indicates that a LEFT SHIFT is Present. MCH (RBC) [Entitic mass] 29.7 pg 27.0-32.0 [facility] Work Phone: Nucleated RBC/100 WBC (Bld) [Ratio] 0 % 0-5 [facility] Work Phone: MCHC Auto (RBC) [Mass/Vol]on 09-18-2021 MCHC (RBC) [Mass/Vol] 32.9 g/dL 32-36 [facility] Work Phone: No Panel Informationon 09-18 Estimated Creatinine Clearance Calc 56.30 ml/min [facility] Work Phone: Estimated GFR (MDRD) Amer 103 mL/min >60 [facility] Work Phone: Comment on above: GFR Calc Estimated GFR (MDRD) Non-Af Amer 85 mL/min >60 [facility] Work Phone: Comment on above: Non- GFR Calc Troponin I High Sensitivity 7384 pg/mL 3.0-78.0 [facility] Work Phone: Comment on above: Critical Result(s) C alled at: 13:13:39 09/18/2021 by: Chelo Rivera. Results read back by same. Please Note: New Test Units and Gender Specific Reference Ranges. For more information see Policy Stat Procedure [place] High Sensitivity Troponin (TNIH) and attachments. Platelets bldon 09-18-2021 Platelets (Bld) [#/Vol] 321 10*3/uL 150-450 [facility] Work Phone: Serum or plasma calcium sharon urement (mass/volume)on 09-18-2021 Calcium [Mass/Vol] 8.4 mg/dL 8.5-10.1 [facility] Work Phone: Serum or plasma creatinine m easurement (mass/volume)on 09-18-2021 Creatinine [Mass/Vol] 0.92 mg/dL 0.70-1.30 [facility] Work Phone: Comment on above: The validity of the calculated GFR & GFRAA in patients over 70 years has not been determined. Clinical correlation is essential. Serum or plasma urea nitroge n measurement (mass/volume)on 09-18-2021 Urea nitrogen [Mass/Vol] 20 mg/dL 7-18 [facility] Work Phone: Thin prep Papanicolaou smear with manual screeningon 09-18-2021 Thin prep Papanicolaou smear with manual screening 7 5-15 [facility] Work Phone: Basophil percentageon 2021 Chloride [Moles/Vol] 102 mmol/L 98-107 [facility] Work Phone: Glucose [Mass/Vol] 108 mg/dL 74-106 [facility] Work Phone: Comment on above: Fasting Glucose resu lt from 100 to 125 mg/dL suggests IMPAIRED HOMEOSTASIS per A.D.A. criteria. Potassium [Moles/Vol] 3.9 mmol/L 3.5-5.1 [facility] Work Phone: Sodium [Moles/Vol] 136 mmol/L 136-145 [facility] Work Phone: WBC (Bld) [#/Vol] 8.3 10*3/uL 4.4-11.0 [facility] Work Phone: Blood erythrocytes count (nu mber/volume)on 09-16-2021 RBC (Bld) [#/Vol] 4.65 10*6/uL 4.6-6.2 [facility] Work Phone: Blood hemoglobin measurement (mass/volume)on 09-16-2021 Hemoglobin (Bld) [Mass/Vol] 13.9 g/dL 13.0-16.5 [facility] Work Phone: Blood platelet mean volumeon 09-16-2021 Platelet mean volume (Bld) [Entitic vol] 9.2 fL 6.2-12.0 [facility] Work Phone: Determination of erythrocyte mean corpuscular volume (MCV)on 09-16-2021 MCV (RBC) [Entitic vol] 88.2 fL 80-94 [facility] Work Phone: Hematocrit Auto (Bld) [Volum e fraction]on 09-16-2021 Hematocrit (Bld) [Volume fraction] 41.0 % 40-54 [facility] Work Phone: INR in Blood by Coagulation assayon 09-16-2021 INR Coag (Bld) [Relative time] 1.5 {INR} [facility] Work Phone: Laboratory - Chemistry and C hemistry - challengeon 09-16-2021 CO2 [Moles/Vol] 28.0 mmol/L 21.0-32.0 [facility] Work Phone: Urea nitrogen/Creatinine [Mass ratio] 22.2 mg/mg 10-20 [facility] Work Phone: Laboratory - Coagulationon 0 09-16-2021 PT Coag (PPP) [Time] 17.4 s 11.7-14.9 [facility] Work Phone: Laboratory - Hematology and Cell countson 09-16-2021 Erythrocyte distribution width (RBC) [Entitic vol] 55.8 fL 35.1-43.9 [facility] Work Phone: Erythrocyte distribution width (RBC) [Ratio] 17.4 % 11.6-14.6 [facility] Work Phone: MCH (RBC) [Entitic mass] 29.9 pg 27.0-32.0 [facility] Work Phone: MCHC Auto (RBC) [Mass/Vol]on 09-16-2021 MCHC (RBC) [Mass/Vol] 33.9 g/dL 32-36 [facility] Work Phone: No Panel Informationon 09-16 Estimated Creatinine Clearance Calc 52.32 ml/min [facility] Work Phone: Estimated GFR (MDRD) Amer 94 mL/min >60 [facility] Work Phone: Comment on above: GFR Calc Estimated GFR (MDRD) Non-Af Amer 78 mL/min >60 [facility] Work Phone: Comment on above: Non- GFR Calc Platelets bldon 09-16-2021 Platelets (Bld) [#/Vol] 326 10*3/uL 150-450 [facility] Work Phone: Serum or plasma calcium sharon urement (mass/volume)on 09-16-2021 Calcium [Mass/Vol] 8.7 mg/dL 8.5-10.1 [facility] Work Phone: Serum or plasma creatinine m easurement (mass/volume)on 09-16-2021 Creatinine [Mass/Vol] 0.99 mg/dL 0.70-1.30 [facility] Work Phone: Comment on above: The validity of the calculated GFR & GFRAA in patients over 70 years has not been determined. Clinical correlation is essential. Serum or plasma urea nitroge n measurement (mass/volume)on 09-16-2021 Urea nitrogen [Mass/Vol] 22 mg/dL 7-18 [facility] Work Phone: Thin prep Papanicolaou smear with manual screeningon 09-16-2021 Thin prep Papanicolaou smear with manual screening 6 5-15 [facility] Work Phone: Basophil percentageon 2021 Bilirubin [Mass/Vol] 1.50 mg/dL 0.20-1.00 [facility] Work Phone: Comment on above: For patients on eltr ombopag therapy, use of Dimension [place] TBIL is not recommended. Protein [Mass/Vol] 7.6 g/dL 6.4-8.2 [facility] Work Phone: Laboratory - Chemistry and C hemistry - challengeon 09-15-2021 ALP [Catalytic activity/Vol] 72 U/L 45-117 [facility] Work Phone: ALT [Catalytic activity/Vol] 46 U/L 16-61 [facility] Work Phone: Globulin (S) [Mass/Vol] 3.8 g/dL 2.2-4.2 [facility] Work Phone: No Panel Informationon 09-15 Troponin I High Sensitivity 19421 pg/mL 3.0-78.0 [facility] Work Phone: Comment on above: Critical Result(s) C alled at: 09:34:47 09/15/2021 by: Pieter Astudillo RN (ICU). Results read back by same. Please Note: New Test Units and Gender Specific Reference Ranges. For more information see Policy Stat Procedure [place] High Sensitivity Troponin (TNIH) and attachments. Serum or plasma albumin sharon urement (mass/volume)on 09-15-2021 Albumin [Mass/Vol] 3.8 g/dL 3.2-5.0 [facility] Work Phone: Serum or plasma albumin/glob ulin mass ratioon 09-15-2021 Albumin/Globulin [Mass ratio] 1.0 {ratio} 0.9-2.4 [facility] Work Phone: Thin prep Papanicolaou smear with manual screeningon 09-15-2021 Thin prep Papanicolaou smear with manual screening 209 U/L 15-37 [facility] Work Phone: Comment on above: Moderate Hemolysis, Result may be falsely increased. Absolute lymphocyte counton 09-14-2021 Lymphocytes Auto (Unsp spec) [#/Vol] 2.91 10*3/uL 0.83-4.51 [facility] Work Phone: Basophil percentageon 2021 Basophils/100 WBC (Bld) 0.6 % 0-1 [facility] Work Phone: [phone] Chloride [Moles/Vol] 108 mmol/L 98-107 [facility] Work Phone: Eosinophils/100 WBC (Bld) 3.3 % 0-5 [facility] Work Phone: Glucose [Mass/Vol] 128 mg/dL 74-106 [facility] Work Phone: Comment on above: Fasting Glucose resu lt greater than or equal to 126 mg/dL suggests DIABETES MELLITUS per A.D.A. criteria. Neutrophils (Bld) [#/Vol] 5.6 10*3/uL 2.0-7.7 [facility] Work Phone: Neutrophils/100 WBC (Bld) 55.4 % 47-70 [facility] Work Phone: Potassium [Moles/Vol] 4.2 mmol/L 3.5-5.1 [facility] Work Phone: Sodium [Moles/Vol] 139 mmol/L 136-145 [facility] Work Phone: WBC (Bld) [#/Vol] 10.2 10*3/uL 4.4-11.0 [facility] Work Phone: Blood erythrocytes count (nu mber/volume)on 09-14-2021 RBC (Bld) [#/Vol] 4.90 10*6/uL 4.6-6.2 [facility] Work Phone: Blood hemoglobin measurement (mass/volume)on 09-14-2021 Hemoglobin (Bld) [Mass/Vol] 14.4 g/dL 13.0-16.5 [facility] Work Phone: Blood lymphocytes/100 leukoc yteson 09-14-2021 Lymphocytes/100 WBC (Bld) 28.6 % 19-41 [facility] Work Phone: Blood monocytes/100 leukocyt eson 09-14-2021 Monocytes/100 WBC (Bld) 11.7 % 0-10 [facility] Work Phone: Blood platelet mean volumeon 09-14-2021 Platelet mean volume (Bld) [Entitic vol] 9.1 fL 6.2-12.0 [facility] Work Phone: Determination of erythrocyte mean corpuscular volume (MCV)on 09-14-2021 MCV (RBC) [Entitic vol] 88.6 fL 80-94 [facility] Work Phone: Hematocrit Auto (Bld) [Volum e fraction]on 09-14-2021 Hematocrit (Bld) [Volume fraction] 43.4 % 40-54 [facility] Work Phone: INR in Blood by Coagulation assayon 09-14-2021 INR Coag (Bld) [Relative time] 1.5 {INR} [facility] Work Phone: Laboratory - Chemistry and C hemistry - challengeon 09-14-2021 CO2 [Moles/Vol] 22.0 mmol/L 21.0-32.0 [facility] Work Phone: Urea nitrogen/Creatinine [Mass ratio] 18.3 mg/mg 10-20 [facility] Work Phone: Laboratory - Coagulationon 0 09-14-2021 aPTT Coag (Bld) [Time] 28.5 s 24.1-[facility].[address] [facility] Work Phone: PT Coag (PPP) [Time] 18.0 s 11.7-14.9 [facility] Work Phone: Laboratory - Hematology and Cell countson 09-14-2021 Erythrocyte distribution width (RBC) [Entitic vol] 54.4 fL 35.1-43.9 [facility] Work Phone: Erythrocyte distribution width (RBC) [Ratio] 17.0 % 11.6-14.6 [facility] Work Phone: Immature granulocytes/100 WBC (Bld) 0.400 % 0.0-0.9 [facility] Work Phone: Comment on above: IG% - Immature Granu locytes (promyelocytes, myelocytes and metamyelocytes) > 1% indicates that a LEFT SHIFT is Present. MCH (RBC) [Entitic mass] 29.4 pg 27.0-32.0 [facility] Work Phone: Nucleated RBC/100 WBC (Bld) [Ratio] 0 % 0-5 [facility] Work Phone: MCHC Auto (RBC) [Mass/Vol]on 09-14-2021 MCHC (RBC) [Mass/Vol] 33.2 g/dL 32-36 [facility] Work Phone: No Panel Informationon 09-14 Estimated Creatinine Clearance Calc 43.17 ml/min [facility] Work Phone: Estimated GFR (MDRD) Amer 75 mL/min >60 [facility] Work Phone: Comment on above: GFR Calc Estimated GFR (MDRD) Non-Af Amer 62 mL/min >60 [facility] Work Phone: Comment on above: Non- GFR Calc Troponin I High Sensitivity 8 pg/mL 3.0-78.0 [facility] Work Phone: Comment on above: Please Note: New Mayte t Units and Gender Specific Reference Ranges. For more information see Policy Stat Procedure [place] High Sensitivity Troponin (TNIH) and attachments. Platelets bldon 09-14-2021 Platelets (Bld) [#/Vol] 419 10*3/uL 150-450 [facility] Work Phone: Serum or plasma calcium sharon urement (mass/volume)on 09-14-2021 Calcium [Mass/Vol] 9.6 mg/dL 8.5-10.1 [facility] Work Phone: Serum or plasma creatinine m easurement (mass/volume)on 09-14-2021 Creatinine [Mass/Vol] 1.20 mg/dL 0.70-1.30 [facility] Work Phone: Comment on above: The validity of the calculated GFR & GFRAA in patients over 70 years has not been determined. Clinical correlation is essential. Serum or plasma urea nitroge n measurement (mass/volume)on 09-14-2021 Urea nitrogen [Mass/Vol] 22 mg/dL 7-18 [facility] Work Phone: Thin prep Papanicolaou smear with manual screeningon 09-14-2021 Thin prep Papanicolaou smear with manual screening 9 5-15 [facility] Work Phone: No Panel Informationon 07-31 Thyroid Stimulating Hormone (TSH) 8.82 uIU/mL 0.358-3.74 [facility] Work Phone: Basophil percentageon 2021 Chloride [Moles/Vol] 107 mmol/L 98-107 [facility] Work Phone: Glucose [Mass/Vol] 86 mg/dL 74-106 [facility] Work Phone: Potassium [Moles/Vol] 4.4 mmol/L 3.5-5.1 [facility] Work Phone: Sodium [Moles/Vol] 140 mmol/L 136-145 [facility] Work Phone: WBC (Bld) [#/Vol] 10.4 10*3/uL 4.4-11.0 [facility] Work Phone: Blood erythrocytes count (nu mber/volume)on 07-12-2021 RBC (Bld) [#/Vol] 4.80 10*6/uL 4.6-6.2 [facility] Work Phone: Blood hemoglobin measurement (mass/volume)on 07-12-2021 Hemoglobin (Bld) [Mass/Vol] 14.2 g/dL 13.0-16.5 [facility] Work Phone: Blood platelet mean volumeon 07-12-2021 Platelet mean volume (Bld) [Entitic vol] 9.2 fL 6.2-12.0 [facility] Work Phone: Determination of erythrocyte mean corpuscular volume (MCV)on 07-12-2021 MCV (RBC) [Entitic vol] 89.6 fL 80-94 [facility] Work Phone: Hematocrit Auto (Bld) [Volum e fraction]on 07-12-2021 Hematocrit (Bld) [Volume fraction] 43.0 % 40-54 [facility] Work Phone: INR in Blood by Coagulation assayon 07-12-2021 INR Coag (Bld) [Relative time] 1.1 {INR} [facility] Work Phone: Laboratory - Chemistry and C hemistry - challengeon 07-12-2021 CO2 [Moles/Vol] 30.0 mmol/L 21.0-32.0 [facility] Work Phone: Urea nitrogen/Creatinine [Mass ratio] 23.3 mg/mg 10-20 [facility] Work Phone: Laboratory - Coagulationon 0 07-12-2021 PT Coag (PPP) [Time] 13.2 s 11.7-14.9 [facility] Work Phone: Laboratory - Hematology and Cell countson 07-12-2021 Erythrocyte distribution width (RBC) [Entitic vol] 47.5 fL 35.1-43.9 [facility] Work Phone: Erythrocyte distribution width (RBC) [Ratio] 14.8 % 11.6-14.6 [facility] Work Phone: MCH (RBC) [Entitic mass] 29.6 pg 27.0-32.0 [facility] Work Phone: MCHC Auto (RBC) [Mass/Vol]on 07-12-2021 MCHC (RBC) [Mass/Vol] 33.0 g/dL 32-36 [facility] Work Phone: No Panel Informationon 07-12 Estimated Creatinine Clearance Calc 52.32 ml/min [facility] Work Phone: Estimated GFR (MDRD) Amer 94 mL/min >60 [facility] Work Phone: Comment on above: GFR Calc Estimated GFR (MDRD) Non-Af Amer 78 mL/min >60 [facility] Work Phone: Comment on above: Non- GFR Calc Platelets bldon 07-12-2021 Platelets (Bld) [#/Vol] 297 10*3/uL 150-450 [facility] Work Phone: Serum or plasma calcium sharon urement (mass/volume)on 07-12-2021 Calcium [Mass/Vol] 8.5 mg/dL 8.5-10.1 [facility] Work Phone: Serum or plasma creatinine m easurement (mass/volume)on 07-12-2021 Creatinine [Mass/Vol] 0.99 mg/dL 0.70-1.30 [facility] Work Phone: Comment on above: The validity of the calculated GFR & GFRAA in patients over 70 years has not been determined. Clinical correlation is essential. Serum or plasma urea nitroge n measurement (mass/volume)on 07-12-2021 Urea nitrogen [Mass/Vol] 23 mg/dL 7-18 [facility] Work Phone: Thin prep Papanicolaou smear with manual screeningon 07-12-2021 Thin prep Papanicolaou smear with manual screening 3 5-15 [facility] Work Phone: Activated partial thrombopla stin time (aPTT) in platelet poor plasma by coagulation aon 07-10-2021 aPTT Coag (PPP) [Time] 33.2 s 24.1-36.2 [facility] Work Phone: Glucose Glucometer (BldC) [M ass/Vol]on 07-10-2021 Glucose [Mass/Vol] 85 mg/dL 70-110 [facility] Work Phone: Comment on above: MANAGEMENT OF PATIEN T CARE PER NURSING PROTOCOL Absolute lymphocyte counton 07-01-2021 Lymphocytes Auto (Unsp spec) [#/Vol] 1.29 10*3/uL 0.83-4.51 [facility] Work Phone: Basophil percentageon 2021 Basophils/100 WBC (Bld) 0.6 % 0-1 [facility] Work Phone: Bilirubin [Mass/Vol] 0.70 mg/dL 0.20-1.00 [facility] Work Phone: Comment on above: For patients on eltr ombopag therapy, use of Dimension [place] TBIL is not recommended. Cholesterol [Mass/Vol] 236 mg/dL <200 [facility] Work Phone: Comment on above: <200 mg/dL Desirable 200-240 mg/dL Borderline >240 mg/dL High Risk Eosinophils/100 WBC (Bld) 4.6 % 0-5 [facility] Work Phone: Neutrophils (Bld) [#/Vol] 5.3 10*3/uL 2.0-7.7 [facility] Work Phone: Neutrophils/100 WBC (Bld) 67.6 % 47-70 [facility] Work Phone: Protein [Mass/Vol] 8.2 g/dL 6.4-8.2 [facility] Work Phone: Triglyceride [Mass/Vol] 85 mg/dL [facility] Work Phone: Comment on above: The drugs N-Acetylcy steine and Metamizole may falsely depress this assay.Serum Triglycerides Reference Interval Normal <150 mg/dL Borderline high 150 - 199 mg/dL High 200 - 499 mg/dL Very High > or = 500 mg/dL Blood lymphocytes/100 leukoc yteson 07-01-2021 Lymphocytes/100 WBC (Bld) 16.4 % 19-41 [facility] Work Phone: Blood monocytes/100 leukocyt eson 07-01-2021 Monocytes/100 WBC (Bld) 10.2 % 0-10 [facility] Work Phone: Direct bilirubinon 2 Bilirubin.direct [Mass/Vol] 0.18 mg/dL 0.00-0.30 [facility] Work Phone: Laboratory - Chemistry and C hemistry - challengeon 07-01-2021 ALP [Catalytic activity/Vol] 77 U/L 45-117 [facility] Work Phone: ALT [Catalytic activity/Vol] 29 U/L 16-61 [facility] Work Phone: Globulin (S) [Mass/Vol] 4.3 g/dL 2.2-4.2 [facility] Work Phone: Magnesium [Mass/Vol] 2.2 mg/dL 1.6-2.3 [facility] Work Phone: Comment on above: Performed at: [address] [id number] Director: Dao Pham PhD, Phone: [phone] Laboratory - Hematology and Cell countson 07-01-2021 Immature granulocytes/100 WBC (Bld) 0.600 % 0.0-0.9 [facility] Work Phone: Comment on above: IG% - Immature Granu locytes (promyelocytes, myelocytes and metamyelocytes) > 1% indicates that a LEFT SHIFT is Present. Nucleated RBC/100 WBC (Bld) [Ratio] 0 % 0-5 [facility] Work Phone: No Panel Informationon 07-01 Thyroid Stimulating Hormone (TSH) 7.24 uIU/mL 0.358-3.74 [facility] Work Phone: Serum or plasma albumin sharon urement (mass/volume)on 07-01-2021 Albumin [Mass/Vol] 3.9 g/dL 3.2-5.0 [facility] Work Phone: Albumin [Mass/Vol] 4.0 g/dL 3.2-5.0 [facility] Work Phone: Serum or plasma cholesterol in HDL measurement (mass/volume)on 07-01-2021 Cholesterol in HDL [Mass/Vol] 90 mg/dL [facility] Work Phone: Comment on above: The drugs N-Acetylcy steine and Metamizole may falsely depress this assay. Reference Range HDL <40 mg/dL Low HDL Cholesterol HDL >or= 60 mg/dL High HDL Cholesterol Serum or plasma cholesterol in VLDL measurement (mass/volume)on 07-01-2021 Cholesterol in VLDL [Mass/Vol] 17 mg/dL 5-40 [facility] Work Phone: Serum or plasma low density lipoprotein (LDL) cholesterol measurement (mass/volume)on 07-01-2021 Cholesterol in LDL [Mass/Vol] 129 mg/dL 0-130 [facility] Work Phone: Thin prep Papanicolaou smear with manual screeningon 07-01-2021 Thin prep Papanicolaou smear with manual screening 25 U/L 15-37 [facility] Work Phone: Culture, urine Bacteria identified Cx Nom (U) Culture exhibits no growth. [facility] Work Phone: Vital Signs Date Time Vital Sign Value Performing Clinician Lobito howard 03-30-2025 13:48-0500 Body height 162.6 cm Ankurtiff Lovett [facility] Work Phone: [facility] 03-30-2025 13:48-0500 Body mass index (BMI) [Ratio] 24.72 kg/m2 [facility] Work Phone: [facility] 03-30-2025 13:48-0500 Body weight 65.32 kg Ankur Dodsongar LEGAL AIDE Work Phone: [facility] 03-30-2025 12:45-0500 Diastolic blood pressure 90 mm[Hg] Kaila Curiel JIG GRINDER - FACILITY MAINTENANCE WORKER Work Phone: [facility] 03-30-2025 12:45-0500 Systolic blood pressure 150 mm[Hg] Kaila Curiel JIG GRINDER - FACILITY MAINTENANCE WORKER Work Phone: [facility] 03-30-2025 12:35-0500 Body height 162.6 cm Kaila Curiel JIG GRINDER - FACILITY MAINTENANCE WORKER Work Phone: [facility] 03-30-2025 12:35-0500 Body mass index (BMI) [Ratio] 24.79 kg/m2 Kaila Curiel JIG GRINDER - FACILITY MAINTENANCE WORKER Work Phone: [facility] 03-30-2025 12:35-0500 Body weight 65.5 kg Kaila Curiel JIG GRINDER - FACILITY MAINTENANCE WORKER Work Phone: [facility] 03-30-2025 12:35-0500 Heart rate 54 /min Kaila Curiel JIG GRINDER - FACILITY MAINTENANCE WORKER Work Phone: [facility] 03-30-2025 12:35-0500 SaO2% (BldA) [Mass fraction] 95 % Kaila Curiel JIG GRINDER - FACILITY MAINTENANCE WORKER Work Phone: [facility] 01-19-2025 09:48-0400 Body height 165.1 cm Ankur Dodsongar ACCOUNT SERVICES SPECIALIST-C Work Phone: [facility] 01-19-2025 09:48-0400 Body mass index (BMI) [Ratio] 24.1 kg/m2 Ankur Dodsongar ACCOUNT SERVICES SPECIALIST-C Work Phone: [facility] 01-19-2025 09:48-0400 Body weight 65.77 kg Ankur Dodsongar ACCOUNT SERVICES SPECIALIST-C Work Phone: [facility] 01-19-2025 09:48-0400 Diastolic blood pressure 69 mm[Hg] Ankur Bony ACCOUNT SERVICES SPECIALIST-C Work Phone: [facility] 01-19-2025 09:48-0400 Heart rate 53 /min Ankur Lovett ACCOUNT SERVICES SPECIALIST-C Work Phone: [facility] 01-19-2025 09:48-0400 Respiratory rate 18 /min Ankur Lovett ACCOUNT SERVICES SPECIALIST-C Work Phone: [facility] 01-19-2025 09:48-0400 SaO2% (BldA) [Mass fraction] 94 % Ankur Lovett ACCOUNT SERVICES SPECIALIST-C Work Phone: [facility] 01-19-2025 09:48-0400 Systolic blood pressure 124 mm[Hg] Ankur Lovett ACCOUNT SERVICES SPECIALIST-C Work Phone: [facility] 06-02-2024 16:22-0500 Diastolic blood pressure 78 mm[Hg] Kaila Curiel JIG GRINDER - FACILITY MAINTENANCE WORKER Work Phone: [facility] 06-02-2024 16:22-0500 Systolic blood pressure 130 mm[Hg] Kaila Curiel JIG GRINDER - FACILITY MAINTENANCE WORKER Work Phone: [facility] 06-02-2024 12:38-0500 Body height 162.6 cm Kaila Curiel JIG GRINDER - FACILITY MAINTENANCE WORKER Work Phone: [facility] 06-02-2024 12:38-0500 Body mass index (BMI) [Ratio] 26.5 kg/m2 Kaila Curiel JIG GRINDER - FACILITY MAINTENANCE WORKER Work Phone: [facility] 06-02-2024 12:38-0500 Body weight 70.03 kg Kaila Curiel JIG GRINDER - FACILITY MAINTENANCE WORKER Work Phone: [facility] 06-02-2024 12:38-0500 Heart rate 67 /min Kaila Curiel JIG GRINDER - FACILITY MAINTENANCE WORKER Work Phone: [facility] 06-02-2024 12:38-0500 SaO2% (BldA) [Mass fraction] 96 % Kaila Curiel JIG GRINDER - FACILITY MAINTENANCE WORKER Work Phone: [facility] 06-02-2024 10:59-0500 Body height 162.6 cm Kaila Curiel JIG GRINDER - FACILITY MAINTENANCE WORKER Work Phone: [facility] [employer] 06-02-2024 10:59-0500 Body mass index (BMI) [Ratio] 26.43 kg/m2 Kaila Curiel JIG GRINDER - FACILITY MAINTENANCE WORKER Work Phone: [facility] [employer] 06-02-2024 10:59-0500 Body weight 69.85 kg Kaila Curiel APRN - FACILITY MAINTENANCE WORKER Work Phone: [facility] [employer] 05-05-2024 14:06-0500 Body height 162.6 cm Kaila Curiel APRN - FACILITY MAINTENANCE WORKER Work Phone: [facility] [employer] 05-05-2024 14:06-0500 Body mass index (BMI) [Ratio] 26.43 kg/m2 Kaila Curiel JIG GRINDER - FACILITY MAINTENANCE WORKER Work Phone: [facility] [employer] 05-05-2024 14:06-0500 Body weight 69.85 kg Kaila Curiel APRN - FACILITY MAINTENANCE WORKER Work Phone: [facility] [employer] 05-05-2024 14:06-0500 Diastolic blood pressure 72 mm[Hg] Kaila Curiel APRN - FACILITY MAINTENANCE WORKER Work Phone: [facility] [employer] 05-05-2024 14:06-0500 Heart rate 52 /min Kaila Curiel APRN - FACILITY MAINTENANCE WORKER Work Phone: [facility] [employer] 05-05-2024 14:06-0500 SaO2% (BldA) [Mass fraction] 96 % Kaila Curiel JIG GRINDER - FACILITY MAINTENANCE WORKER Work Phone: [facility] [employer] 05-05-2024 14:06-0500 Systolic blood pressure 138 mm[Hg] Kaila Curiel JIG GRINDER - FACILITY MAINTENANCE WORKER Work Phone: [facility] [employer] 04-26-2024 07:31-0500 Body temperature 98.01 [degF] Beck Woodward Work Phone: [facility] [employer] 04-26-2024 07:31-0500 Diastolic blood pressure 91 mm[Hg] Beck Santillan MD Work Phone: [facility] [employer] 04-26-2024 07:31-0500 Heart rate 64 /min Beck Woodward Work Phone: [facility] [employer] 04-26-2024 07:31-0500 Respiratory rate 21 /min Beck Woodward Work Phone: [facility] [employer] 04-26-2024 07:31-0500 SaO2% (BldA) [Mass fraction] 94 % Beck Santillan MD Work Phone: [facility] [employer] 04-26-2024 07:31-0500 Systolic blood pressure 150 mm[Hg] Beck Santillan MD Work Phone: [facility] [employer] 04-26-2024 05:37-0500 Body mass index (BMI) [Ratio] 25.69 kg/m2 Beck Santillan MD Work Phone: [facility] [employer] 04-26-2024 05:37-0500 Body weight 67.9 kg Beck Woodward Work Phone: [facility] [employer] 04-25-2024 11:11-0500 Body height 162.6 cm Beck Woodward Work Phone: [facility] [employer] 04-12-2024 14:07-0500 Body height 162.6 cm Olimpia Watsonung DO Work Phone: [facility] [employer] 04-12-2024 14:07-0500 Body mass index (BMI) [Ratio] 26.53 kg/m2 Olimpia Thompson DO Work Phone: [facility] [employer] 04-12-2024 14:07-0500 Body weight 70.1 kg Olimpia Thompson DO Work Phone: [facility] [employer] 04-12-2024 14:07-0500 Diastolic blood pressure 82 mm[Hg] Olimpia Thompson DO Work Phone: [facility] [employer] 04-12-2024 14:07-0500 Heart rate 55 /min Olimpia Thompson DO Work Phone: [facility] [employer] 04-12-2024 14:07-0500 SaO2% (BldA) [Mass fraction] 94 % Olimpia Thompson DO Work Phone: [facility] [employer] 04-12-2024 14:07-0500 Systolic blood pressure 124 mm[Hg] Olimpia Thompson DO Work Phone: [facility] [employer] 04-12-2024 12:36-0500 Body height 162.6 cm Justin Resendiz MD Work Phone: [facility] [employer] 04-12-2024 12:36-0500 Body mass index (BMI) [Ratio] 26.54 kg/m2 Justin Resendiz MD Work Phone: [facility] [employer] 04-12-2024 12:36-0500 Body weight 70.13 kg Justin Resendiz MD Work Phone: [facility] [employer] 04-12-2024 12:36-0500 Diastolic blood pressure 82 mm[Hg] Justin Resendiz MD Work Phone: [facility] [employer] 04-12-2024 12:36-0500 Heart rate 55 /min Justin Resendiz MD Work Phone: [facility] [employer] 04-12-2024 12:36-0500 SaO2% (BldA) [Mass fraction] 94 % Justin Resendiz MD Work Phone: [facility] [employer] 04-12-2024 12:36-0500 Systolic blood pressure 124 mm[Hg] Justin Resendiz MD Work Phone: [facility] [employer] 01-21-2024 10:32-0400 Body temperature 97.11 [degF] Karl Neff MD Work Phone: [facility] [employer] 01-21-2024 10:32-0400 Diastolic blood pressure 77 mm[Hg] Karl Neff MD Work Phone: [facility] [employer] 01-21-2024 10:32-0400 Heart rate 65 /min Karl Neff MD Work Phone: [facility] [employer] 01-21-2024 10:32-0400 Respiratory rate 20 /min Karl Neff MD Work Phone: [facility] [employer] 01-21-2024 10:32-0400 SaO2% (BldA) [Mass fraction] 95 % Karl Neff MD Work Phone: [facility] 01-21-2024 10:32-0400 Systolic blood pressure 131 mm[Hg] Karl Neff MD Work Phone: [facility] 01-21-2024 06:28-0400 Body mass index (BMI) [Ratio] 25.51 kg/m2 Karl Neff MD Work Phone: [facility] 01-21-2024 06:28-0400 Body weight 67.4 kg Karl Neff MD Work Phone: [facility] 01-20-2024 02:26-0400 Body height 162.6 cm Karl Neff MD Work Phone: [facility] 07-07-2023 10:31-0500 Body height 162.56 cm ACCOUNT SERVICES SPECIALIST-C Ankur Bony Work Phone: [facility] 07-07-2023 10:31-0500 Body mass index (BMI) [Ratio] 26.2 kg/m2 ACCOUNT SERVICES SPECIALIST-C Ankur Bony Work Phone: [facility] 07-07-2023 10:31-0500 Body weight 69.48 kg ACCOUNT SERVICES SPECIALIST-C Ankur Bony Work Phone: [facility] 07-07-2023 10:31-0500 Diastolic blood pressure 88 mm[Hg] ACCOUNT SERVICES SPECIALIST-C Ankur Bony Work Phone: [facility] 07-07-2023 10:31-0500 Heart rate 56 /min ACCOUNT SERVICES SPECIALIST-C Ankur Bony Work Phone: [facility] 07-07-2023 10:31-0500 Respiratory rate 14 /min ACCOUNT SERVICES SPECIALIST-C Ankur Bony Work Phone: [facility] 07-07-2023 10:31-0500 Systolic blood pressure 151 mm[Hg] ACCOUNT SERVICES SPECIALIST-C Ankur Bony Work Phone: [facility] 10-22-2022 10:19-0400 Body height 162.56 cm ACCOUNT SERVICES SPECIALIST-C Ankur Lovett Work Phone: [facility] 10-22-2022 10:19-0400 Body mass index (BMI) [Ratio] 26.1 kg/m2 ACCOUNT SERVICES SPECIALIST-C Ankur Lovett Work Phone: [facility] 10-22-2022 10:19-0400 Body weight 68.94 kg ACCOUNT SERVICES SPECIALIST-C Ankur Lovett Work Phone: [facility] 10-22-2022 10:19-0400 Diastolic blood pressure 89 mm[Hg] ACCOUNT SERVICES SPECIALIST-C Ankur Lovett Work Phone: [facility] 10-22-2022 10:19-0400 Heart rate 57 /min ACCOUNT SERVICES SPECIALIST-C Ankur Lovett Work Phone: [facility] 10-22-2022 10:19-0400 Respiratory rate 18 /min [facility] Work Phone: [facility] 10-22-2022 10:19-0400 SaO2% (BldA) [Mass fraction] 97 % ACCOUNT SERVICES SPECIALIST- Ankurtiff Lovett Work Phone: [facility] 10-22-2022 10:19-0400 Systolic blood pressure 139 mm[Hg] ACCOUNT SERVICES SPECIALIST-C Ankur Lovett Work Phone: [facility] 11-18-2021 17:48-0400 Heart rate 70 /min Dr. Tapan Cornelius Work Phone: [facility] Work Phone: 11-18-2021 17:48-0400 Respiratory rate 16 /min Dr. Tapan Cornelius Work Phone: [facility] Work Phone: 11-18-2021 17:48-0400 SaO2% (BldA) [Mass fraction] 99 % Dr. Tapan Cornelius Work Phone: [facility] Work Phone: 11-18-2021 14:18-0400 Body height 162.[address] Tapan Cornelius Work Phone: [facility] Work Phone: 11-18-2021 14:18-0400 Body mass index (BMI) [Ratio] 26.6 kg/m2 Dr. Tapan Cornelius Work Phone: [facility] Work Phone: 11-18-2021 14:18-0400 Body temperature 98 [degF] Dr. Tapan Cornelius Work Phone: [facility] Work Phone: 11-18-2021 14:18-0400 Body weight 70.[address] Tapan Cornelius Work Phone: [facility] Work Phone: 11-18-2021 14:18-0400 Diastolic blood pressure 80 mm[Hg] Dr. Tapan Cornelius Work Phone: [facility] Work Phone: 11-18-2021 14:18-0400 Systolic blood pressure 156 mm[Hg] Dr. Tapan Cornelius Work Phone: [facility] Work Phone: 11-15-2021 08:49-0400 Body weight 71.[address] Tapan Cornelius Work Phone: [facility] Work Phone: 11-07-2021 22:37-0400 Diastolic blood pressure 77 mm[Hg] Dr. Tapan Cornelius Work Phone: [facility] Work Phone: 11-07-2021 22:37-0400 Heart rate 50 /min Dr. Tapan Cornelius Work Phone: [facility] Work Phone: 11-07-2021 22:37-0400 Respiratory rate 14 /min Dr. Tapan Cornelius Work Phone: [facility] Work Phone: 11-07-2021 22:37-0400 SaO2% (BldA) [Mass fraction] 96 % Dr. Tapan Cornelius Work Phone: [facility] Work Phone: 11-07-2021 22:37-0400 Systolic blood pressure 144 mm[Hg] Dr. Tapan Cornelius Work Phone: [facility] Work Phone: 11-07-2021 20:35-0400 Body mass index (BMI) [Ratio] 26.6 kg/m2 Dr. Tapan Cornelius Work Phone: [facility] Work Phone: 11-07-2021 20:35-0400 Body temperature 97.9 [degF] Dr. Tapan Cornelius Work Phone: [facility] Work Phone: 11-07-2021 20:35-0400 Body weight 70.[address] Tapan Cornelius Work Phone: [facility] Work Phone: 11-07-2021 14:27-0400 Diastolic blood pressure 89 mm[Hg] Dr. Tapan Cornelius Work Phone: [facility] Work Phone: 11-07-2021 14:27-0400 Heart rate 50 /min Dr. Tapan Cornelius Work Phone: [facility] Work Phone: 11-07-2021 14:27-0400 Respiratory rate 16 /min Dr. Tapan Cornelius Work Phone: [facility] Work Phone: 11-07-2021 14:27-0400 SaO2% (BldA) [Mass fraction] 97 % Dr. Tapan Cornelius Work Phone: [facility] Work Phone: 11-07-2021 14:27-0400 Systolic blood pressure 162 mm[Hg] Dr. Tapan Cornelius Work Phone: [facility] Work Phone: 11-07-2021 11:56-0400 Body height 162.[address] Tapan Cornelius Work Phone: [facility] Work Phone: 11-07-2021 11:56-0400 Body mass index (BMI) [Ratio] 26.9 kg/m2 Dr. Tapan Cornelius Work Phone: [facility] Work Phone: 11-07-2021 11:56-0400 Body temperature 98.2 [degF] Dr. Tapan Cornelius Work Phone: [facility] Work Phone: 11-07-2021 11:56-0400 Body weight 71.[address] Tapan Cornelius Work Phone: [facility] Work Phone: 10-15-2021 09:14-0400 Body weight 72.[address] Tapan Cornelius Work Phone: [facility] Work Phone: 10-15-2021 09:01-0400 Body mass index (BMI) [Ratio] 26.6 kg/m2 Dr. Tapan Cornelius Work Phone: [facility] Work Phone: 10-15-2021 09:01-0400 Body temperature 97.9 [degF] Dr. Tapan Cornelius Work Phone: [facility] Work Phone: 10-15-2021 09:01-0400 Diastolic blood pressure 94 mm[Hg] Dr. Tapan Cornelius Work Phone: [facility] Work Phone: 10-15-2021 09:01-0400 Heart rate 85 /min Dr. Tapan Cornelius Work Phone: [facility] Work Phone: 10-15-2021 09:01-0400 Respiratory rate 14 /min Dr. Tapan Cornelius Work Phone: [facility] Work Phone: 10-15-2021 09:01-0400 SaO2% (BldA) [Mass fraction] 97 % Dr. Tapan Cornelius Work Phone: [facility] Work Phone: 10-15-2021 09:01-0400 Systolic blood pressure 132 mm[Hg] Dr. Tapan Cornelius Work Phone: [facility] Work Phone: 10-09-2021 11:15-0400 Body mass index (BMI) [Ratio] 26.8 kg/m2 Dr. Tapan Cornelius Work Phone: [facility] Work Phone: 10-09-2021 11:15-0400 Body weight 73.[address] Tapan Cornelius Work Phone: [facility] Work Phone: 10-09-2021 11:15-0400 Diastolic blood pressure 66 mm[Hg] Dr. Tapan Cornelius Work Phone: [facility] Work Phone: 10-09-2021 11:15-0400 Heart rate 52 /min Dr. Tapan Cornelius Work Phone: [facility] Work Phone: 10-09-2021 11:15-0400 Respiratory rate 16 /min Dr. Tapan Cornelius Work Phone: [facility] Work Phone: 10-09-2021 11:15-0400 Systolic blood pressure 131 mm[Hg] Dr. Tapan Cornelius Work Phone: [facility] Work Phone: 10-02-2021 09:25-0400 Body temperature 97.9 [degF] Dr. Tapan Cornelius Work Phone: [facility] Work Phone: 10-02-2021 09:25-0400 Diastolic blood pressure 67 mm[Hg] Dr. Tapan Cornelius Work Phone: [facility] Work Phone: 10-02-2021 09:25-0400 Heart rate 56 /min Dr. Tapan Cornelius Work Phone: [facility] [facility] Work [facility]: 10-02-2021 09:25-0400 Respiratory rate 16 /min Dr. Tapan Cornelius Work Phone: [facility] Work Phone: 10-02-2021 09:25-0400 SaO2% (BldA) [Mass fraction] 96 % Dr. Tapan Cornelius Work Phone: [facility] Work Phone: 10-02-2021 09:25-0400 Systolic blood pressure 108 mm[Hg] Dr. Tapan Cornelius Work Phone: [facility] Work Phone: 10-01-2021 12:38-0400 Body mass index (BMI) [Ratio] 26.6 kg/m2 Dr. Tapan Cornelius Work Phone: [facility] Work Phone: 10-01-2021 12:38-0400 Body weight 72.[address] Tapan Cornelius Work Phone: [facility] Work Phone: 09-30-2021 10:17-0400 Body mass index (BMI) [Ratio] 27.4 kg/m2 Dr. Tapan Cornelius Work Phone: [facility] Work Phone: 09-30-2021 10:17-0400 Body weight 72.[address] Tapan Cornelius Work Phone: [facility] Work Phone: 09-30-2021 10:17-0400 Diastolic blood pressure 83 mm[Hg] Dr. Tapan Cornelius Work Phone: [facility] Work Phone: 09-30-2021 10:17-0400 Heart rate 49 /min Dr. Tapan Cornelius Work Phone: [facility] Work Phone: 09-30-2021 10:17-0400 Respiratory rate 18 /min Dr. Tapan Cornelius Work Phone: [facility] Work Phone: 09-30-2021 10:17-0400 SaO2% (BldA) [Mass fraction] 98 % Dr. Tapan Cornelius Work Phone: [facility] Work Phone: 09-30-2021 10:17-0400 Systolic blood pressure 134 mm[Hg] Dr. Tapan Cornelius Work Phone: [facility] Work Phone: 09-18-2021 16:14-0400 Diastolic blood pressure 86 mm[Hg] Dr. Tapan Cornelius Work Phone: [facility] Work Phone: 09-18-2021 16:14-0400 Heart rate 86 /min Dr. Tapan Cornelius Work Phone: [facility] Work Phone: 09-18-2021 16:14-0400 Respiratory rate 16 /min Dr. Tapan Cornelius Work Phone: [facility] Work Phone: 09-18-2021 16:14-0400 Systolic blood pressure 116 mm[Hg] Dr. Tapan Cornelius Work Phone: [facility] Work Phone: 09-18-2021 13:52-0400 SaO2% (BldA) [Mass fraction] 97 % Dr. Tapan Cornelius Work Phone: [facility] Work Phone: 09-18-2021 11:52-0400 Body mass index (BMI) [Ratio] 28 kg/m2 Dr. Tapan Cornelius Work Phone: [facility] Work Phone: 09-18-2021 11:52-0400 Body temperature 98.2 [degF] Dr. Tapan Cornelius Work Phone: [facility] Work Phone: 09-18-2021 11:52-0400 Body weight 74.[address] Tapan Cornelius Work Phone: [facility] Work Phone: 09-16-2021 13:30-0400 Diastolic blood pressure 65 mm[Hg] Dr. Tapan Cornelius Work Phone: [facility] Work Phone: 09-16-2021 13:30-0400 Heart rate 82 /min Dr. Tapan Cornelius Work Phone: [facility] Work Phone: 09-16-2021 13:30-0400 Respiratory rate 16 /min Dr. Tapan Cornelius Work Phone: [facility] Work Phone: 09-16-2021 13:30-0400 SaO2% (BldA) [Mass fraction] 96 % Dr. Tapan Cornelius Work Phone: [facility] Work Phone: 09-16-2021 13:30-0400 Systolic blood pressure 99 mm[Hg] Dr. Tapan Cornelius Work Phone: [facility] Work Phone: 09-16-2021 08:00-0400 Body temperature 98.9 [degF] Dr. Tapan Cornelius Work Phone: [facility] Work Phone: 09-16-2021 05:19-0400 Body weight 72.[address] Tapan Cornelius Work Phone: [facility] Work Phone: 09-16-2021 04:00-0400 Inhaled oxygen flow rate 2 L/min Dr. Tapan Cornelius Work Phone: [facility] Work Phone: 09-15-2021 10:00-0400 Body height 162.[address] Tapan Cornelius Work Phone: [facility] Work Phone: 09-14-2021 18:26-0400 Body mass index (BMI) [Ratio] 27.6 kg/m2 Dr. Tapan Cornelius Work Phone: [facility] Work Phone: 09-14-2021 17:10-0400 Diastolic blood pressure 100 mm[Hg] Dr. Tapan Cornelius Work Phone: [facility] Work Phone: 09-14-2021 17:10-0400 Heart rate 88 /min Dr. Tapan Cornelius Work Phone: [facility] Work Phone: 09-14-2021 17:10-0400 Respiratory rate 24 /min Dr. Tapan Cornelius Work Phone: [facility] Work Phone: 09-14-2021 17:10-0400 SaO2% (BldA) [Mass fraction] 98 % Dr. Tapan Cornelius Work Phone: [facility] Work Phone: 09-14-2021 17:10-0400 Systolic blood pressure 119 mm[Hg] Dr. Tapan Cornelius Work Phone: [facility] Work Phone: 09-14-2021 17:05-0400 Body temperature 97.9 [degF] Dr. Tapan Cornelius Work Phone: [facility] Work Phone: 09-14-2021 16:26-0400 Body height 162.[address] Tapan Cornelius Work Phone: [facility] Work Phone: 09-14-2021 16:26-0400 Body mass index (BMI) [Ratio] 27.4 kg/m2 Dr. Tapan Cornelius Work Phone: [facility] Work Phone: 09-14-2021 16:26-0400 Body weight 72.[address] Tapan Cornelius Work Phone: [facility] Work Phone: 07-31-2021 09:56-0500 Body mass index (BMI) [Ratio] 27.4 kg/m2 Dr. Tapan Cornelius Work Phone: [facility] Work Phone: 07-31-2021 09:56-0500 Body weight 72.[address] Tapan Cornelius Work Phone: [facility] Work Phone: 07-31-2021 09:56-0500 Diastolic blood pressure 69 mm[Hg] Dr. Tapan Cornelius Work Phone: [facility] Work Phone: 07-31-2021 09:56-0500 Heart rate 73 /min Dr. Tapan Cornelius Work Phone: [facility] Work Phone: 07-31-2021 09:56-0500 Respiratory rate 18 /min Dr. Tapan Cornelius Work Phone: [facility] Work Phone: 07-31-2021 09:56-0500 SaO2% (BldA) [Mass fraction] 94 % Dr. Tapan Cornelius Work Phone: [facility] Work Phone: 07-31-2021 09:56-0500 Systolic blood pressure 118 mm[Hg] Dr. Tapan Cornelius Work Phone: [facility] Work Phone: 07-31-2021 08:56-0500 Body mass index (BMI) [Ratio] 27.4 kg/m2 Dr. Tapan Cornelius Work Phone: [facility] Work Phone: 07-31-2021 08:56-0500 Body weight 72.[address] Tapan Cornelius Work Phone: [facility] Work Phone: 07-31-2021 08:56-0500 Diastolic blood pressure 69 mm[Hg] Dr. Tapan Cornelius Work Phone: [facility] Work Phone: 07-31-2021 08:56-0500 Heart rate 73 /min Dr. Tapan Cornelius Work Phone: [facility] Work Phone: 07-31-2021 08:56-0500 Respiratory rate 18 /min Dr. Tapan Cornelius Work Phone: [facility] Work Phone: 07-31-2021 08:56-0500 SaO2% (BldA) [Mass fraction] 94 % Dr. Tapan Cornelius Work Phone: [facility] Work Phone: 07-31-2021 08:56-0500 Systolic blood pressure 118 mm[Hg] Dr. Tapan Cornelius Work Phone: [facility] Work Phone: 07-12-2021 13:55-0500 Body temperature 98.4 [degF] Dr. Tapan Cornelius Work Phone: [facility] Work Phone: 07-12-2021 13:55-0500 Diastolic blood pressure 78 mm[Hg] Dr. Tapan Cornelius Work Phone: [facility] Work Phone: 07-12-2021 13:55-0500 Heart rate 78 /min Dr. Tapan Cornelius Work Phone: [facility] Work Phone: 07-12-2021 13:55-0500 Respiratory rate 18 /min Dr. Tapan Cornelius Work Phone: [facility] Work Phone: 07-12-2021 13:55-0500 SaO2% (BldA) [Mass fraction] 94 % Dr. Tapan Cornelius Work Phone: [facility] Work Phone: 07-12-2021 13:55-0500 Systolic blood pressure 132 mm[Hg] Dr. Tapan Cornelius Work Phone: [facility] Work Phone: 07-12-2021 12:55-0500 Body temperature 98.4 [degF] Dr. Tapan Cornelius Work Phone: [facility] Work Phone: 07-12-2021 12:55-0500 Diastolic blood pressure 78 mm[Hg] Dr. Tapan Cornelius Work Phone: [facility] Work Phone: 07-12-2021 12:55-0500 Heart rate 78 /min Dr. Tapan Cornelius Work Phone: [facility] Work Phone: 07-12-2021 12:55-0500 Respiratory rate 18 /min Dr. Tapan Cornelius Work Phone: [facility] Work Phone: 07-12-2021 12:55-0500 SaO2% (BldA) [Mass fraction] 94 % Dr. Tapan Cornelius Work Phone: [facility] Work Phone: 07-12-2021 12:55-0500 Systolic blood pressure 132 mm[Hg] Dr. Tapan Cornelius Work Phone: [facility] Work Phone: 07-10-2021 09:29-0500 Body mass index (BMI) [Ratio] 27.2 kg/m2 Dr. Tapan Cornelius Work Phone: [facility] Work Phone: 07-10-2021 09:29-0500 Body weight [address] Tapan Cornelius Work Phone: [facility] Work Phone: 07-10-2021 08:29-0500 Body mass index (BMI) [Ratio] 27.2 kg/m2 Dr. Tapan Cornelius Work Phone: [facility] Work Phone: 07-10-2021 08:29-0500 Body weight [address] Tapan Cornelius Work Phone: [facility] Work Phone: 06-27-2021 13:30-0500 Body mass index (BMI) [Ratio] 28.3 kg/m2 Dr. Tapan Cornelius Work Phone: [facility] Work Phone: 06-27-2021 13:30-0500 Body weight 74.[address] Tapan Cornelius Work Phone: [facility] Work Phone: 06-27-2021 13:30-0500 Diastolic blood pressure 82 mm[Hg] Dr. Tapan Cornelius Work Phone: [facility] Work Phone: 06-27-2021 13:30-0500 Heart rate 64 /min Dr. Tapan Cornelius Work Phone: [facility] Work Phone: 06-27-2021 13:30-0500 Respiratory rate 16 /min Dr. Tapan Cornelius Work Phone: [facility] Work Phone: 06-27-2021 13:30-0500 Systolic blood pressure 139 mm[Hg] Dr. Tapan Cornelius Work Phone: [facility] Work Phone: Encounters Encounter Date Encounter Type Care Provider Facility Start: 04-05-2025 ambulatory Sharon Malave Facility: [facility] Start: 03-30-2025 End: 03-30-2025 Subsequent hospital visit by physician Ankur Lovett LEGAL AIDE Work Phone: [facility] [address] [facility] Comment on above: Severe aortic stenos is Start: 03-30-2025 End: 03-30-2025 ambulatory ANKUR LOVETT [facility] Start: 03-30-2025 End: 03-30-2025 Office outpatient visit 25 minutes Kaila Curiel APRN - FACILITY MAINTENANCE WORKER Work Phone: [facility] - [place] Comment on above: S/P TAVR (transcathe ter aortic valve replacement) (Primary Dx); Paroxysmal atrial fibrillation (HCC); Severe aortic stenosis; Essential hypertension; Coronary artery disease involving [place] coronary artery of [place] heart without angina pectoris Start: 03-30-2025 End: 03-30-2025 ambulatory KAILA CURIEL [facility] Start: 02-22-2025 ambulatory Kaila Toribio Fa cility:[facility] Start: 02-06-2025 End: 02-21-2025 Discharged Recurring Kaila Toribio PA -[facility] [place] Work Phone: Start: 02-06-2025 End: 02-21-2025 ambulatory Ankur Lovett ACCOUNT SERVICES SPECIALIST-C Work Phone: -[facility] [place] Start: 01-19-2025 Patient encounter status Ankur Lovett ACCOUNT SERVICES SPECIALIST-C Work Phone: [facility] Start: 01-19-2025 Preprocedural examination done Ankur Lovett ACCOUNT SERVICES SPECIALIST-C Work Phone: [facility] Start: 01-19-2025 End: 01-19-[address] Олег Ortiz MD -[facility] Work Phone: Start: 01-19-2025 End: 01-19-[address] Олег Ortiz MD [facility] Start: 01-19-2025 End: 01-19-[address] Олег Ortiz MD [facility] Start: 01-19-2025 End: 01-19-2025 ambulatory Ankur Lovett ACCOUNT SERVICES SPECIALIST-C Work Phone: -[facility] Start: 12-27-2024 End: 12-27-2024 Discharged Recurring Kaila Torbiio PA -[facility] [place] Work Phone: Start: 12-27-2024 Registered Recurring Kaila Toribio PA -[facility] [place] Work Phone: Start: 12-27-2024 End: 12-27-2024 ambulatory Ankur Lovett ACCOUNT SERVICES SPECIALIST-C Work Phone: -[facility] [place] Start: 11-15-2024 End: 11-15-2024 ambulatory Kaila Toribio PA Work Phone: -[facility] Start: 11-15-2024 End: 11-15-2024 Patient encounter procedure Ankur Lovett ACCOUNT SERVICES SPECIALIST-C -[facility] Start: 11-15-2024 End: 11-15-2024 ambulatory Ankur Lovett Facility:[facility] Start: 08-23-2024 End: 09-21-2024 Discharged Recurring Kaila Toribio PA -Laboratory Work Phone: Start: 08-23-2024 End: 09-21-2024 ambulatory Kaila Toribio Facility:[facility] Start: 06-29-2024 End: 07-22-2024 ambulatory Kaila Toribio Facility:[facility] Start: 06-28-2024 End: 06-28-2024 [facility] Start: 06-08-2024 ambulatory Sharon Malave Facility: [facility] Start: 06-02-2024 End: 06-02-2024 Office outpatient visit 25 minutes Kaila Curiel APRN - FACILITY MAINTENANCE WORKER Work Phone: [facility] Comment on above: Paroxysmal atrial fi brillation (HCC) (Primary Dx); Aortic stenosis, severe; First degree AV block Start: 06-02-2024 End: 06-02-2024 ambulatory KAILA CURIEL [facility] Start: 06-02-2024 End: 06-02-2024 Subsequent hospital visit by physician Kaila Curiel APRN - [place] Work Phone: [facility] [address] [facility]-Invasive [facility] Comment on above: First degree AV bloc k; Other specified heart block; Aortic valve stenosis, etiology of cardiac valve disease unspecified; Abnormal EKG; S/P TAVR (transcatheter aortic valve replacement) Start: 06-02-2024 End: 06-02-2024 ambulatory KAILA CURIEL [facility] Start: 05-27-2024 End: 05-27-2024 ambulatory Nannette Nicolas [facility] Start: 05-24-2024 End: 05-24-2024 Telephone encounter Beck Santillan MD Work Phone: [facility] [employer] Start: 05-20-2024 End: 05-20-2024 ambulatory Gabriela Rehman RN [facility] Start: 05-12-2024 End: 05-12-2024 ambulatory Devon Briones Facility:[facility] Start: 05-05-2024 End: 05-05-2024 ambulatory KAILA MOISÉS [facility] Start: 05-05-2024 End: 05-05-2024 Office outpatient visit 25 minutes Kaila Daily CNP Work Phone: [facility] [employer] [facility] Comment on above: First degree AV bloc k (Primary Dx); Paroxysmal atrial fibrillation (HCC); Other specified heart block; Aortic valve stenosis, etiology of cardiac valve disease unspecified; Abnormal EKG; S/P TAVR (transcatheter aortic valve replacement) Start: 05-05-2024 End: 05-06-2024 Telephone encounter Kaila Daily CNP Work Phone: [facility]: Prior Authorization Start: 05-05-2024 End: 05-05-2024 ambulatory KAILA CURIEL [facility] Start: 05-05-2024 End: 05-05-2024 Subsequent hospital visit by physician Kaila Curiel JIG GRINDER - FACILITY MAINTENANCE WORKER Work Phone: [facility] [address] Non-Invasive Cardiology Comment on above: Arrived Start: 04-25-2024 End: 04-26-2024 Evaluation and management of inpatient Beck Santillan MD Work Phone: [facility] Cardiac Thoracic Vascular Intensive Care Unit CTV ICU T1 Comment on above: Severe aortic stenos is (Primary Dx); Aortic stenosis, severe Start: 04-20-2024 End: 04-20-2024 ambulatory Jolene Resendiz JIG GRINDER - FACILITY MAINTENANCE WORKER Work Phone: [facility] on above: Severe aortic stenos is (Primary Dx) Start: 04-12-2024 End: 04-12-2024 ambulatory OLIMPIA THOMPSON [facility] Start: 04-12-2024 End: 04-12-2024 Office outpatient new 60 minutes Olimpia Thompson Work Phone: [facility] [employer] Comment on above: Nonrheumatic aortic valve stenosis (Primary Dx) Aortic valve stenosi s, etiology of cardiac valve disease unspecified Start: 04-12-2024 End: 04-12-2024 ambulatory [facility] Start: 04-12-2024 End: 04-12-2024 Subsequent hospital visit by physician Jolene Resendiz JIG GRINDER - FACILITY MAINTENANCE WORKER Work Phone: [facility] [address] X-ray Comment on above: Aortic stenosis, mod erate Start: 04-12-2024 End: 04-12-2024 ambulatory JOLENE RESENDIZ [facility] Start: 03-09-2024 End: 03-09-2024 ambulatory Laina Montes RN [facility] [employer] Start: 02-11-2024 End: 02-11-2024 ambulatory Laina Montes RN [facility] [employer] Start: 01-20-2024 End: 01-21-2024 Evaluation and management of inpatient Karl Neff MD Work Phone: [facility] Cardiac Vascular Progressive Care Unit PCC 1C Comment on above: Aortic stenosis, mod erate (Primary Dx); Stented coronary artery; Malignant thymoma (HCC); Paroxysmal atrial fibrillation (HCC) Start: 09-15-2023 End: 09-15-2023 ambulatory ACCOUNT SERVICES SPECIALIST-C Ankur Lovett Work Phone: [facility] Work Phone: Start: 09-15-2023 End: 09-15-2023 Patient encounter procedure ACCOUNT SERVICES SPECIALIST-C Ankur Lovett Work Phone: [facility]-Laboratory, Helen Ortiz [facility] Start: 07-31-2023 Non-patient / Non-visit ACCOUNT SERVICES SPECIALIST-C Luis A Lovett Work Phone: [facility] Start: 07-31-2023 End: 07-31-2023 ambulatory ACCOUNT SERVICES SPECIALIST-C Ankur Lovett Work Phone: [facility] Work Phone: Start: 07-31-2023 End: 07-31-2023 Patient encounter procedure ACCOUNT SERVICES SPECIALIST-C Ankur Lovett Work Phone: [facility]-Cardiovascula r Services Work Phone: Start: 07-22-2023 End: 07-23-2023 ambulatory ACCOUNT SERVICES SPECIALIST-C Ankur Lovett Work Phone: [facility] Work Phone: Start: 07-22-2023 End: 07-23-2023 Discharged Recurring ACCOUNT SERVICES SPECIALIST-C Ankur Lovett Work Phone: [facility]-Laboratory Work Phone: Start: 07-07-2023 End: 07-07-2023 Patient encounter procedure ACCOUNT SERVICES SPECIALIST-C Ankur Lovett Work Phone: [facility] Work Phone: Start: 06-15-2023 End: 06-15-2023 ambulatory [facility] Work Phone: Start: 06-15-2023 End: 06-15-2023 Discharged Recurring [facility] Work Phone: Start: 04-20-2023 End: 04-23-2023 ambulatory [facility] Work Phone: Start: 04-20-2023 End: 04-23-2023 Discharged Recurring [facility] Work Phone: Start: 03-17-2023 End: 03-17-2023 ambulatory [facility] Work Phone: Start: 03-17-2023 End: 03-17-2023 Discharged Recurring [facility] Work Phone: Start: 02-04-2023 End: 02-04-2023 ambulatory ACCOUNT SERVICES SPECIALIST-C Ankur Bony Work Phone: [facility] Work Phone: Start: 02-04-2023 End: 02-04-2023 Discharged Recurring ACCOUNT SERVICES SPECIALIST-C Ankur Bony Work Phone: [facility]-Laboratory Work Phone: Start: 01-12-2023 End: 01-12-2023 ambulatory ACCOUNT SERVICES SPECIALIST-C Ankur Bony Work Phone: [facility] Work Phone: Start: 01-12-2023 End: 01-12-2023 Discharged Recurring ACCOUNT SERVICES SPECIALIST-C Ankur Bony Work Phone: [facility]-Laboratory Work Phone: Start: 12-11-2022 End: 12-22-2022 Discharged Recurring ACCOUNT SERVICES SPECIALIST-C Ankur Bony Work Phone: [facility]-Laboratory Work Phone: Start: 11-04-2022 Non-patient / Non-visit ACCOUNT SERVICES SPECIALIST-C R achel Bony Work Phone: [facility] Start: 11-04-2022 End: 11-04-2022 Patient encounter procedure ACCOUNT SERVICES SPECIALIST-C Ankur Bony Work Phone: [facility]-Cardiovascula r Services Work Phone: Start: 10-31-2022 End: 10-31-2022 ambulatory ACCOUNT SERVICES SPECIALIST-C Ankur Lovett Work Phone: [facility] Work Phone: Start: 10-31-2022 End: 10-31-2022 Discharged Recurring ACCOUNT SERVICES SPECIALIST-C Ankur Lovett Work Phone: [facility] Work Phone: Start: 10-22-2022 End: 10-22-2022 Patient encounter procedure ACCOUNT SERVICES SPECIALIST-C Ankur Lovett Work Phone: [facility] Work Phone: Start: 09-10-2022 Non-patient / Non-visit Dr. Verónica Guillermo Work Phone: [facility] Start: 09-10-2022 End: 09-10-[address] Toro Guillermo Work Phone: [facility] Work Phone: Start: 09-10-2022 End: 09-10-[address] Toro Guillermo [facility] Phone[facility] Start: 04-29-2022 Telephone encounter Ryan patel MD Work Phone: [facility] Comment on above: Appointment Cancelle d (Per call from patient ) Start: 03-11-2022 Orders Only Ryan Taylor nd, MD Work Phone: [facility] Comment on above: Malignant neoplasm o f thymus (HCC) (Primary Dx) Start: 03-10-2022 Telephone encounter Tapan Cornelius MD Work Phone: [facility] Comment on above: Appointment Start: 11-18-2021 End: 11-18-2021 Emergency department patient visit Dr. Tapan Cornelius Work Phone: [facility]-Emergency Department Start: 11-18-2021 End: 11-18-[address] Tapan Cornelius Work Phone: [facility] Start: 11-07-2021 End: 11-07-2021 Emergency department patient visit Dr. Tapan Cornelius Work Phone: [facility]-Emergency Department Start: 11-07-2021 End: 11-07-2021 Emergency department patient visit Dr. Tapan Cornelius Work Phone: [facility]-Emergency Department Start: 11-04-2021 End: 11-21-[address] Tapan Cornelius Work Phone: [facility]-Cardiac Rehab Start: 11-04-[address] Tapan Cornelius Work Phone: [facility] Start: 10-15-2021 End: 10-15-[address] Tapan Cornelius Work Phone: [facility]-Cardiac Rehab Start: 10-09-2021 End: 10-09-[address] Tapan Cornelius Work Phone: [facility] Start: 10-02-2021 Non-patient / Non-visit Dr. Ildefonso Cornelius Work Phone: [facility] Start: 10-01-2021 End: 10-02-2021 Evaluation and management of inpatient Dr. Tapan Cornelius Work Phone: [facility]-Progressive Care Unit Start: 10-01-2021 Non-patient / Non-visit Dr. Ildefonso Cornelius Work Phone: [facility] Start: 09-30-2021 Non-patient / Non-visit Dr. Ildefonso Cornelius Work Phone: [facility] Start: 09-30-2021 End: 09-30-[address] Tapan Cornelius Work Phone: [facility] Start: 09-27-2021 Non-patient / Non-visit Dr. Ildefonso Cornelius Work Phone: [facility] Start: 09-18-2021 End: 09-18-2021 Emergency department patient visit Dr. Tapan Cornelius Work Phone: [facility]-Emergency Department Start: 09-16-2021 Non-patient / Non-visit Dr. Ildefonso Cornelius Work Phone: [facility] Start: 09-16-2021 Non-patient / Non-visit Dr. Ildefonso Cornelius Work Phone: [facility] Start: 09-15-2021 Non-patient / Non-visit Dr. Ildefonso Cornelius Work Phone: [facility] Start: 09-15-2021 Non-patient / Non-visit Dr. Ildefonso Cornelius Work Phone: [facility] Start: 09-14-2021 End: 09-16-2021 Evaluation and management of inpatient [facility]. Tapan [facility] Start: 09-14-2021 Non-patient / Non-visit Dr. Ildefonso Cornelius Work Phone: [facility] Start: 09-14-2021 Evaluation and management of inpatient Dr. Tapan Cornelius Work Phone: [facility]-Intensive Care Unit Start: 07-31-2021 End: 07-31-[address] Tapan Cornelius Work Phone: [facility]-Laboratory Start: 07-31-2021 End: 07-31-[address] Tapan Cornelius Work Phone: [facility] Start: 07-11-2021 Non-patient / Non-visit Dr. Ildefonso Cornelius Work Phone: [facility] Start: 07-10-2021 Non-patient / Non-visit Dr. Ildefonso Cornelius Work Phone: [facility] Start: 07-10-2021 End: 07-12-2021 Evaluation and management of inpatient Dr. Tapan Cornelius Work Phone: [facility]-Medical Surgical 3 Start: 07-09-2021 Non-patient / Non-visit Dr. Ildefonso Cornelius Work Phone: [facility] Start: 07-09-2021 End: 07-09-[address] Tpaan Cornelius Work Phone: [facility]-Cardiovascula r Services Start: 07-01-2021 End: 07-01-[address] Tapan Cornelius Work Phone: [facility] Start: 06-27-2021 End: 06-27-[address] Tapan Cornelius Work Phone: [facility] Start: 12-04-2017 Ambulatory [facility] Facility :[facility] Start: 08-13-2017 End: 08-13-2017 [facility] Facility:[facility] Start: 06-15-2017 End: 06-15-2017 [facility] Facility:[facility] Procedures Date Procedure Procedure Detail Performing Clinician Start: 03-30-2025 Echo tthrc r-t 2d w/wom-mode compl spec&colr d Jolene Resendiz JIG GRINDER - FACILITY MAINTENANCE WORKER Work Phone: Start: 03-30-2025 Ecg routine ecg w/le ast 12 lds trcg only w/o i&r Beck Santillan MD Work Phone: Start: 03-30-2025 Adult depression scr eening assessment Kaila Curiel JIG GRINDER - FACILITY MAINTENANCE WORKER Work Phone: Start: 11-15-2024 Assay of prostate sp ecific antigen total Kaila RAMIREZ Work Phone: Comment on above: This test was perfor med using the [employer] tPSA method. Measured values of a patient sample can vary depending on the testing procedure used. PSA values determined on patient samples by different testing procedures cannot be used interchangeably. If there is a change in PSA assays while monitoring therapy, sequential testing should be performed to confirm baseline values. Start: 11-15-2024 Prostate specific an tigen measurement Ankur Dodsongar ACCOUNT SERVICES SPECIALIST-C Work Phone: Comment on above: This test was perfor med using the [employer] tPSA method. Measured values of a patient sample can vary depending on the testing procedure used. PSA values determined on patient samples by different testing procedures cannot be used interchangeably. If there is a change in PSA assays while monitoring therapy, sequential testing should be performed to confirm baseline values. Start: 11-15-2024 Vitamin D, 25-hydrox y measurement Kaila RAMIREZ Work Phone: Comment on above: Vitamin D StatusDefi ciency: <20 ng/mL (50nmol/L)Insufficiency: 20-30 ng/mL (50-75 nmol/L)Sufficiency: 30-100 ng/mL (75-250 nmol/L)Toxicity: >100 ng/mL (>250 nmol/L) Start: 08-23-2024 Assay of prostate sp ecific antigen total Kaila RAMIREZ Work Phone: Comment on above: This test was perfor med using the [employer] tPSA method. Measured values of a patient sample can vary depending on the testing procedure used. PSA values determined on patient samples by different testing procedures cannot be used interchangeably. If there is a change in PSA assays while monitoring therapy, sequential testing should be performed to confirm baseline values. Start: 06-02-2024 Ecg routine ecg w/le ast 12 lds trcg only w/o i&r Justin Resendiz MD Work Phone: Start: 06-02-2024 TTE w or wo tori arana,Doppler Kaila Curiel APRN - TASHI Work Phone: Start: 05-05-2024 Ecg routine ecg w/le ast 12 lds trcg only w/o i&r Justin Resendiz MD Work Phone: Start: 04-26-2024 Basic metabolic pane l calcium total Kaila Curiel JIG GRINDER - FACILITY MAINTENANCE WORKER Work Phone: Start: 04-26-2024 Ecg routine ecg w/le ast 12 lds trcg only w/o i&r Kaila Curiel JIG GRINDER - FACILITY MAINTENANCE WORKER Work Phone: Start: 04-25-2024 Echo tthrc r-t 2d w/wom-mode compl spec&colr d Kaila Curiel JIG GRINDER - FACILITY MAINTENANCE WORKER Work Phone: Start: 04-25-2024 Basic metabolic pane l calcium total Kaila Curiel JIG GRINDER - FACILITY MAINTENANCE WORKER Work Phone: Start: 04-25-2024 Ecg routine ecg w/le ast 12 lds trcg only w/o i&r Kaila Bernal Moisés JIG GRINDER - FACILITY MAINTENANCE WORKER Work Phone: Start: 04-25-2024 Echo transthorc r-t 2d w/wo m-mode rec f-up/lmtd Beck Santillan MD Work Phone: Start: 04-25-2024 OXYGEN THERAPY Kaila Bernal Moisés JIG GRINDER - FACILITY MAINTENANCE WORKER Work Phone: Start: 04-25-2024 Cardiac catheterizat ion study Beck Santillan MD Work Phone: Start: 04-25-2024 POCT ACT Beck sawyer MD Work Phone: Start: 04-25-2024 End: 04-25-2024 TRANSCATHETER AORTIC VALVE REPLACEMENT (TAVR) - OR Raffy Appiah DO Work Phone: Start: 04-25-2024 Compatibility each u nit electronic Beck Santillan MD Work Phone: Start: 04-25-2024 Prothrombin time Alliso n N Lacona JIG GRINDER - FACILITY MAINTENANCE WORKER Work Phone: Start: 04-12-2024 Ecg routine ecg w/le ast 12 lds w/i&r Justin Resendiz MD Work Phone: Start: 04-12-2024 Radiologic exam ches t 2 views Jolene Martín JIG GRINDER - FACILITY MAINTENANCE WORKER Work Phone: Start: 04-12-2024 Antibody screen FAUSTO CURIEL Comment on above: Performed By: #### L [id number] ####Discharge Planner: LUL HENDERSON ([phone])[facility] ([facility])[address] [place] [address] Start: 01-21-2024 Ecg routine ecg w/le ast 12 lds trcg only w/o i&r Wesley La MD Work Phone: Start: 01-21-2024 Basic metabolic pane l calcium total Charlotte Pickard MD Work Phone: Start: 01-20-2024 Ecg routine ecg w/le ast 12 lds trcg only w/o i&r Lorena Daley MD Work Phone: Start: 01-20-2024 Cardiac catheterizat ion study Beck Santillan MD Work Phone: Start: 01-20-2024 Percutaneous coronar y intervention Beck Santillan MD Work Phone: Start: 01-20-2024 End: 01-20-2024 POCT ACT Charlotte Pickard MD Work Phone: Start: 01-20-2024 Thromboplastin time partial plasma/whole blood Wesley La MD Work Phone: Start: 01-20-2024 Assay of troponin quantitative Wesley La MD Work Phone: Start: 01-20-2024 Comprehensive metabo lic panel Wesley La MD Work Phone: Start: 01-20-2024 Lipid panel Wesley La MD Work Phone: Start: 08-28-2024 Lipid 1996 panel - S libby or Plasma Karl Neff MD Work Phone: Start: 11-18-2021 Echography of scrotu m and contents Dr. Tapan Cornelius Work Phone: Start: 11-18-2021 CT of abdomen and pe lvis without contrast Dr. Tapan Cornelius Work Phone: Start: 09-18-2021 Plain chest X-ray Dr. Jared Cornelius Work Phone: Start: 09-14-2021 Plain chest X-ray Dr. Jared Cornelius Work Phone: Start: 07-10-2021 End: 07-10-2021 Acid fast bacilli culture Dr. Tapan Hughes an Work Phone: Start: 07-10-2021 End: 07-10-2021 Cytopathology procedure, preparation of smear, genital source Dr. Tapan Cornelius Work Phone: Start: 07-10-2021 End: 07-10-[address] Tapan Corneilus Work Phone: Start: 07-10-2021 End: 07-10-[address] Tapan Cornelius Work Phone: Start: 07-10-2021 Radiologic examinati on of knee Dr. Tapan Cornelius Work Phone: Start: 07-09-2021 Plain chest X-ray Dr. Jared Cornelius Work Phone: Start: 07-09-2021 Nuclear Stress Test - Chemical Dr. Tapan Cornelius Work Phone: Start: 07-01-2021 MRI of lower extremity Dr. Tapan Cornelius Work Phone: Acid fast bacilli culture Dr Pastor Cornelius Work Phone: Cytopathology proced ure, preparation of smear, genital source Dr. Tapan Cornelius Work Phone: Fungus stain method Dr. Yoav Cornelius Work Phone: Mycology culture Dr. Tapan waldron Work Phone: Urine culture Dr. Tapan lora Work Phone: Plan of Treatment Date Care Activity Detail Author Start: 02-14-2031 DTaP/Tdap/Td Vaccines (2 - Td or Tdap) DTaP/Tdap/Td Vaccines (2 - Td or Tdap) [facility] Start: 01-19-2029 Lipid panel Lipid Panel [facility] [employer] Start: 04-24-2026 End: 06-02-2026 US Heart Transthoracic Transthoracic echocardiogram (TTE) complete with contrast, bubble, strain, and 3D PRN CV Echocardiography Routine Aortic stenosis, severe Expected: 04/24/2026 (Approximate), Expires: 06/02/2026 [facility] [employer] Work Phone: Comment on above: Expected: 04/24/2026 (Approximate), Expi res: 06/02/2026 Start: 03-30-2026 Depression Screening Depression Screening [facility] Start: 03-30-2025 End: 03-30-2025 Patient encounter procedure [facility] [place] Start: 01-23-2025 COVID-19 Vaccine ( season) COVID-19 Vaccine () [facility] Start: 01-23-2025 Influenza vaccination Influenza Vaccine (#1) [facility] Start: 01-19-2025 End: 01-19-2025 Evaluation of diagnostic study results [facility] Start: 11-09-2024 DIABETES SCREEN DIABETES SCREEN [facility] Start: 06-05-2024 End: 05-05-2026 US Heart Transthoracic Transthoracic echocardiogram (TTE) complete with contrast, bubble, strain, and 3D PRN CV Echocardiography Routine First degree AV block Other specified heart block Aortic valve stenosis, etiology of cardiac valve disease unspecified Abnormal EKG S/P TAVR (transcatheter aortic valve replacement) Expected: 06/05/2024 (Approximate), Expires: 05/05/2026 [facility] [employer] Work Phone: Comment on above: Expected: 06/05/2024 (Approximate), Expi res: 05/05/2026 Start: 06-02-2024 End: 06-02-2024 Patient encounter procedure [facility] [address] Non-Invasive Cardiology Start: 05-05-2024 End: 05-05-2024 Patient encounter procedure 05/05/2024 2:00 PM EST Office Visit [facility] [address] [place] [id number] Kaila Curiel, JIG GRINDER - FACILITY MAINTENANCE WORKER [address] [address] [facility] Start: 04-25-2024 End: 04-25-2024 Admission to same day surgery center 04/25/2024 11:00 AM EST - 04/25/2024 12:45 PM EST Surgery [facility] MA[facility] OR [address] [place] [address] Beck Santillan MD [address] [place] [address] [phone] TRANSCATHETER AORTIC VALVE REPLACEMENT, TRANSTHORACIC ECHOCARDIOGRAM [facility] Comment on above: TRANSCATHETER AORTIC VALVE REPLACEMENT, TRANSTHORACIC ECHOCARDIOGRAM Start: 04-25-2024 End: 04-25-2024 Anesthesia consultation 04/25/2024 11:00 AM EST Anesthesia Event [facility] OR [address] [place] [address] Gutierrez Nicholson MD [address] [place] [address] [phone] Payton Long, JIG GRINDER - FACILITY MAINTENANCE WORKER [address] [address] [facility] Start: 04-25-2024 Subsequent hospital visit by physician 04/25/2024 11:00 AM EST Hospital Encounter [facility] [address] [place] [address] Beck Santillan MD [address] [address] Aortic stenosis, severe [facility] Comment on above: Aortic stenosis, severe Start: 04-25-2024 End: 04-25-2024 TRANSCATHETER AORTIC VALVE REPLACEMENT (TAVR) - OR TRANSCATHETER AORTIC VALVE REPLACEMENT (TAVR) - OR Aortic stenosis, severe 04/25/2024 11:00 AM EST [facility] Start: 04-12-2024 End: 04-12-2024 Patient encounter procedure [facility] [address] Start: 01-24-2024 COVID-19 Vaccine ( season) COVID-19 Vaccine () [facility] Start: 01-24-2024 COVID-19 Vaccine ( season) COVID-19 Vaccine () [facility] Start: 01-24-2024 Influenza vaccination Influenza Vaccine (#1) [facility] Start: 01-23-2023 COVID-19 Vaccine () COVID-19 Vaccine () [facility] Start: 03-11-2022 End: 05-11-2022 CREATININE BLD CREATININE BLD Lab Routine Malignant neoplasm of thymus (HCC) Expected: 03/11/2022, Expires: 05/11/2022 [facility] Work Phone: Comment on above: Expected: 03/11/2022, Expires: Start: 01-23-2022 Influenza vaccination INFLUENZA (#1) [facility] Start: 11-07-2021 [facility] Work Phone: Start: 11-07-2021 Insj temp ndwellg bladder catheter simple INSERT TEMP BLADDER CATH [facility] Work Phone: Start: 10-02-2021 Patient discharge [facility] Work Phone: Start: 10-01-2021 Following clinical pathway protocol [facility] Work Phone: Start: 10-01-2021 Cardiac monitoring [facility] Work Phone: Start: 10-01-2021 Cardiac rehabilitation - phase 1 [facility] Work Phone: Start: 10-01-2021 Notification of physician [facility] Work Phone: Start: 10-01-2021 Patient discharge [facility] Work Phone: Start: 10-01-2021 Systemic arterial pressure monitoring [facility] Work Phone: Start: 10-01-2021 [facility] Work Phone: Start: 10-01-2021 Vascular disease risk assessment [facility] Work Phone: Start: 10-01-2021 Vital signs measurements [facility] Work Phone: Start: 10-01-2021 End: 10-01-2021 [facility] Work Phone: Start: 10-01-2021 Oxygen therapy [facility] Work Phone: Start: 10-01-2021 Admission procedure [facility] Work Phone: Start: 10-01-2021 Assessment of risk of venous thromboembolism [facility] Work Phone: Start: 10-01-2021 Insertion of catheter into peripheral vein [facility] Work Phone: Start: 10-01-2021 Measuring intake and output [facility] Work Phone: Start: 10-01-2021 Providing care according to standard [facility] Work Phone: Start: 09-16-2021 Patient referral [facility] Work Phone: Start: 09-16-2021 [facility] Work Phone: Start: 09-16-2021 Patient discharge [facility] Work Phone: Start: 09-14-2021 End: 09-15-2021 [facility] Work Phone: Start: 09-14-2021 Assessment of risk of venous thromboembolism [facility] Work Phone: Start: 09-14-2021 Bedrest [facility] Work Phone: Start: 09-14-2021 Catheterization of vein [facility] Work Phone: Start: 09-14-2021 Continuous pulse oximetry [facility] Work Phone: Start: 09-14-2021 Insertion of catheter into peripheral vein [facility] Work Phone: Start: 09-14-2021 Measuring intake and output [facility] Work Phone: Start: 09-14-2021 Oxygen therapy [facility] Work Phone: Start: 09-14-2021 Patient referral to dietitian [facility] Work Phone: Start: 09-14-2021 Providing care according to standard [facility] Work Phone: Start: 09-14-2021 Provision of activity privileges [facility] Work Phone: Start: 09-14-2021 Referral to change control specialist [facility] Work Phone: Start: 09-14-2021 Vital signs measurements [facility] Work Phone: Start: 09-14-2021 Following clinical pathway protocol [facility] Work Phone: Start: 09-14-2021 Admission procedure [facility] Work Phone: Start: 09-14-2021 Cardiac monitoring [facility] Work Phone: Start: 09-14-2021 Cardiac rehabilitation - phase 1 [facility] Work Phone: Start: 09-14-2021 End: 09-14-2021 Notification of physician [facility] Work Phone: Start: 09-14-2021 Patient discharge [facility] Work Phone: Start: 09-14-2021 Systemic arterial pressure monitoring [facility] Work Phone: Start: 09-14-2021 Taking [facility] vital [facility] Work Phone: Start: 09-14-2021 Vascular disease risk assessment [facility] Work Phone: Start: 09-14-2021 Vital signs measurements [facility] Work Phone: Start: 07-12-2021 Patient discharge [facility] Work Phone: Start: 07-10-2021 Following clinical pathway protocol [facility] Work Phone: Start: 07-10-2021 Anesth open/surg arthrs total knee arthroplasty ANESTH KNEE ARTHROPLASTY [facility] Work Phone: Start: 07-10-2021 Arthrp kne condyle&platu medial&lat compartments TOTAL KNEE ARTHROPLASTY [facility] Work Phone: Start: 07-10-2021 Provision of overbed trapeze [facility] Work Phone: Start: 07-10-2021 Ambulation therapy management [facility] Work Phone: Start: 07-10-2021 Application of device [facility] Work Phone: Start: 07-10-2021 Application of elastic bandage [facility] Work Phone: Start: 07-10-2021 Assessment of risk of venous thromboembolism [facility] Work Phone: Start: 07-10-2021 Catheterization of vein [facility] Work Phone: Start: 07-10-2021 Exercises [facility] Work Phone: Start: 07-10-2021 Following clinical pathway protocol [facility] Work Phone: Start: 07-10-2021 Incentive spirometry [facility] Work Phone: Start: 07-10-2021 Introduction of urinary catheter [facility] Work Phone: Start: 07-10-2021 Measuring intake and output [facility] Work Phone: Start: 07-10-2021 Neurovascular assessment [facility] Work Phone: Start: 07-10-2021 Patient education [facility] Work Phone: Start: 07-10-2021 Procedure discontinued [facility] Work Phone: Start: 07-10-2021 Provision of activity privileges [facility] Work Phone: Start: 07-10-2021 Referral to occupational therapist [facility] Work Phone: Start: 07-10-2021 Referral to service [facility] Work Phone: Start: 07-10-2021 Vital signs measurements [facility] Work Phone: Start: 07-10-2021 Wound care [facility] Work Phone: Start: 07-10-2021 [facility] Work Phone: Start: 07-10-2021 Admission procedure [facility] Work Phone: Start: 07-10-2021 Application of antithromboembolic stockings [facility] Work Phone: Start: 07-10-2021 Application of intermittent pneumatic compression device [facility] Work Phone: Start: 07-10-2021 Consultation [facility] Work Phone: Start: 05-25-2021 ADVANCE DIRECTIVE DISCUSSION ADVANCE DIRECTIVE DISCUSSION [facility] Start: 05-25-2021 DEPRESSION ASSESSMENT DEPRESSION ASSESSMENT [facility] Start: 12-06-2018 RSV Immunization for Adults (1 - 1-dose 75+ series) RSV Immunization for Adults (1 - 1-dose 75+ series) [facility] Start: 02-22-2014 Pneumococcal Vaccine: 50+ Years (2 of 2 - PCV) Pneumococcal Vaccine: 50+ Years (2 of 2 - PCV) [facility] Start: 02-22-2014 Pneumococcal Vaccine: 65+ Years (2 of 2 - PCV) Pneumococcal Vaccine: 65+ Years (2 of 2 - PCV) [facility] Start: 03-28-2010 PNEUMOCOCCAL: 65+ (2 - PCV) PNEUMOCOCCAL: 65+ (2 - PCV) [facility] Start: 07-06-2009 Urine microalbumin profile DTAP,TDAP,TD (1 - Tdap) [facility] Start: 2003 RSV Immunization aged 60 or older (1 - 1-dose 60+ series) RSV Immunization aged 60 or older (1 - 1-dose 60+ series) [facility] Start: 12-06-1993 SHINGRIX VACCINE (1 of 2) SHINGRIX VACCINE (1 of 2) [facility] Start: 12-06-1993 Zoster Vaccines (1 of 2) Zoster Vaccines (1 of 2) [facility] Start: 12-06-1961 ANNUAL PCP TEAM CHRONIC DISEASE VISIT ANNUAL PCP TEAM CHRONIC DISEASE VISIT [facility] Start: 12-06-1961 BP CONTROLLED (<130/80) BP CONTROLLED (<130/80) [facility] in Start: 12-06-1961 HEPATITIS C SCREENING HEPATITIS C SCREENING [facility] Start: 1955 Depression Screening Depression Screening [facility] Start: 06-08-1944 COVID-19 VACCINE (#1) COVID-19 VACCINE (#1) [facility] Start: 1943 Medicare Annual Wellness (AWV) Medicare Annual Wellness (AWV) [facility] Start: 1945 Thyroid stimulating hormone measurement TSH Level [facility] Albumin [Mass/volume ] in Serum or Plasma [facility] Work Phone: Bacteria identified in Urine by Culture Urine Culture [facility] Work Phone: Blood chemistry [facility] Work Phone: Cardiac catheterizat ion study Cardiac procedure CV Cardiac Cath Routine Aortic stenosis, moderate 01/20/2024 12:49 PM EDT [facility] Work Phone: Cardiac telemetry mo nitor (30 days) Cardiac laboratory monitor (30 days) CV Cardiac Services STAT First degree AV block Other specified heart block Abnormal EKG S/P TAVR (transcatheter aortic valve replacement) 05/05/2024 3:41 PM EST [facility] CBC W Auto Different ial panel - Blood [facility] Work Phone: End: 04-10-2023 CT CHEST W IVCON CT CHEST W IVCON Radiology Routine Malignant neoplasm of thymus (HCC) 1 Occurrences starting 03/11/2022 until 04/10/2023 [facility] Work Phone: Comment on above: 1 Occurrences starting 03/11/2022 until 04/10/2023 End: 04-12-2024 CT Chest WO and CT angiogram Coronary arteries W contrast IV [facility] Work Phone: Comment on above: Once for 1 Occurrences starting 04/12/20 24 until 04/12/2024 ECG 12 lead - CLINIC PERFORMED ECG 12 lead - CLINIC PERFORMED CV ECG Routine Paroxysmal atrial fibrillation (HCC) First degree AV block Other specified heart block Abnormal EKG S/P TAVR (transcatheter aortic valve replacement) 05/05/2024 2:08 PM EST [facility] Work Phone: ECG 12 lead - CLINIC PERFORMED ECG 12 lead - CLINIC PERFORMED CV ECG Routine Aortic stenosis, severe 06/02/2024 12:34 PM EST [employer] ECG 12 lead - CLINIC PERFORMED ECG 12 lead - CLINIC PERFORMED CV ECG Routine S/P TAVR (transcatheter aortic valve replacement) 03/30/2025 12:38 PM EST [facility] Work Phone: Patient Education [facility] Work Phone: Patient referral [facility] Work Phone: [facility] Immunizations Immunization Date Immunization Notes Care Provider Fa [facility] 02-14-2021 tetanus toxoid, redu pema diphtheria toxoid, and acellular pertussis vaccine, adsorbed Dr. Tapan Cornelius Work Phone: [facility] 03-25-[address] Tapan Cornelius Work Phone: [facility] 02-27-2019 influenza, high dose seasonal, preservative-free Tapan Cornelius MD Work Phone: [facility] 02-27-2019 influenza virus vacc ine, unspecified formulation Karl Neff MD Work Phone: [facility] 04-09-2018 influenza, injectabl e, quadrivalent, contains preservative Tapan Cornelius MD Work Phone: [facility] 04-07-[address] Tapan Cornelius Work Phone: [facility] 03-25-[address] Tapan Cornelius Work Phone: [facility] 03-25-[address] Tapan Cornelius Work Phone: [facility] 02-22-[address] Gavin Cornelius Work Phone: [facility] Work Phone: 02-22-2013 pneumococcal vaccine , unspecified formulation Dr. Toro Guillermo Work Phone: [facility] 03-03-2011 influenza virus vacc ine, unspecified formulation Tapan Cornelius MD Work Phone: [facility] Work Phone: 03-09-2010 influenza virus vacc ine, unspecified formulation Tapan Cornelius MD Work Phone: [facility] Work Phone: 07-05-2009 tetanus and diphther ia toxoids, adsorbed, preservative free, for adult use (2 Lf of tetanus toxoid and 2 Lf of diphtheria toxoid) Tapan Cornelius MD Work Phone: [facility] Work Phone: 03-28-2009 pneumococcal polysaccharide vaccine, 23 valent Tapan Cornelius MD Work Phone: [facility] 03-23-2009 influenza virus vacc ine, unspecified formulation Tapan Cornelius MD Work Phone: [facility] Work Phone: Payers Date Payer Category Payer Self-pay [id number] 2015 Medicare supplementa l policy (as second payer) [employer] [id number] 2015 Private Health Insurance [id number] 2015 Private Health Insurance [id number] 2008 Medicare [id number] 2008 Medicare [id number] Medicare [id number] Unknown [id number] Unknown [id number] Unknown [id number] Unknown [id number] Unknown [id number] Unknown [id number] Unknown [id number] Unknown [id number] Unknown [id number] Unknown [id number] Social History Date Type Detail Facility Start: 09-14-2021 End: 07-07-2023 Tobacco smoking status NHIS Unknown if ever smoked [facility] Start: 11-20-2019 None [facility] Start: 11-20-2019 Spouse/ Significant Other [facility] Start: 11-20-2019 Non-smoker [facility] Start: 1945 Sex Assigned At Male [facility] Start: 06-13-2016 End: 01-20-2024 Tobacco smoking status NHIS Never smoked tobacco [facility] Start: 06-13-2016 End: 01-20-2024 Tobacco use and exposure Smokeless tobacco non-user [facility] Start: 04-29-2019 Alcohol intake Current non-drinker of alcohol (finding) [facility] Start: 1945 Sex Assigned At Not on file [facility] Start: 01-20-2024 End: 04-25-2024 History of Social function [facility] [employer] Start: 01-20-2024 End: 04-25-2024 Humiliation, Afraid, Rape, and Kick questionnaire [HARK] [facility] Within the last year , have you been afraid of your partner or ex-partner? No [facility] Start: 01-19-2024 Sex Male (finding) [facility] How often to you hav e a drink containing alcohol? Never [facility] How many standard dr inks containing alcohol do you have on a typical day? Patient does not drink [facility] (I/We) worried wheth er (my/our) food would run out before (I/we) got money to buy more. Never true [facility] Medical Equipment Procedure Code Equipment Code Equipment Origin al Text Equipment Identifier Dates ([id number]) Uncoated knee fe mur prosthesis, metallic ()[id number] FDA Start: 07-10-2021 Orthopaedic ceme nt, antimicrobial ()[id number] FDA Start: 07-10-2021 ([id number]) Polyethylene pat presley prosthesis ()[id number] FDA Start: 07-10-2021 ([id number]) Uncoated knee ti marisol prosthesis, metallic ()[id number] XA FDA Start: 07-10-2021 ([id number]) Knee arthroplast y wedge ()[id number] F2D FDA Start: 07-10-2021 ([id number]) Knee femur stem prosthesis [id number] FDA Start: 07-10-2021 ([id number]) Knee femur stem prosthesis [id number] FDA Start: 07-10-2021 ([id number]) Polymer orthopae dic cement restrictor, non-bioabsorbable, sterile ()[id number] FDA Start: 07-10-2021 ([id number]) Polymer orthopae dic cement restrictor, non-bioabsorbable, sterile ()[id number] FDA Start: 07-10-2021 ([id number]) Tibial insert ()[id number] FDA Start: 07-10-2021 ([id number]) Drug-eluting cor onary artery stent, bioabsorbable-polymer -coated ()[id number] FDA Start: 09-14-2021 Stent Cor Skypoi nt 2.17f13tr - [id number] Start: 01-20-2024 Valve Maria Isabel 3 C omm 29mm - [id number] - [id number] Start: 04-25-2024 Comment on above: Description: [id number] Device Perclose Prostyle - [id number] Start: 04-25-2024 Goals Date Patient Goal Desired Activity /State Functional Status Date Assessment Result Facility 03-30-2025 Patient [facility] ionnaire 2 item (PHQ-2) [Reported] [facility] 10-02-2021 Functional status Ambulates [facility] Work Phone: 09-16-2021 Functional status Ambulates [facility] Work Phone: 07-12-2021 Functional status Chair [facility] Work Phone: 07-11-2021 Functional status Tolerates Activity Fair [facility] Work Phone: Mental Status Date Assessment Result Facility 11-18-2021 Cognitive function Level Of Cons ciousness Awake;Alert;Appropriate;Follow s Commands [facility] Work Phone: 10-02-2021 Cognitive function Voice/Name [facility] Work Phone: 09-18-2021 Cognitive function Voice/Name [facility] Work Phone: 09-16-2021 Cognitive function Voice/Name [facility] Work Phone: 09-14-2021 Cognitive function Voice/Name [facility] Work Phone: 07-12-2021 Cognitive function Appropriate;Cooperativ e [facility] Work Phone: 07-11-2021 Cognitive function Voice/Name [facility] Work Phone: Clinical Notes 04-26-2017 to 03-31-2025 Telephone Encounter - Johanne Rm RN - 03/31/2025 9:12 AM ESTTelephone Encounter - Johanne Rm RN - 03/31/2025 9:12 AM ESTTelephone Encounter - Lois Briggs - 05/24/2024 12:53 PM EST Note Date & Type Note Facility 03-31-2025 Telephone encounter Note Form atting of this note might be different from the original. Doug Ortiz call spouse tomorrow and let her know echo looked OK. Mild leakage around valve. Dr. Ortiz can continue to follow. PC to patient spouse. Reviewed JIG GRINDER recommendations. Patient spouse verbalized understanding. [facility] 03-31-2025 Miscellaneous Notes Formattin g of this note might be different from the original. Johanne- Diana call spouse tomorrow and let her know echo looked OK. Mild leakage around valve. Dr. Ortiz can continue to follow. PC to patient spouse. Reviewed JIG GRINDER recommendations. Patient spouse verbalized understanding. scheduled Can I get a 1 yr TAVR follow up echo order please? documented in this encounter [facility] 03-30-2025 History of Presen t illness Narrative Images from the original note were not included. [facility] CARDIOLOG[facility] - [address] [address] Dept: [phone] Dept Visit type: Established : 1945 Reason for Visit: Cardiac Valve Problem Assessment and Plan 1. 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 Paroxysmal atrial fibrillation (HCC) In SR today, on amio, stroke prophylaxis with warfarin, mgt Dr. Ortiz. 3. Severe aortic stenosis Resolved, post TAVR 4. Essential hypertension BP elevated today but at goal for home BP monitoring. Will continue amlodipine 5. Coronary artery disease involving [place] coronary artery of [place] heart without angina pectoris Remote LAD stents. Intol statins. Consider non statin therapy. Will defer to Dr. Ortiz. LDL chol 139-- 12/[address] Ortiz, will send echo Subjective Mr Keenan is an 78 yr old male with a PMH of BPH, HPL, hypothyroidism, malignant thymoma s/p resection, carotid dissection, SERGO, AF on Coumadin CAD- s/p remote LAD stents; NSTEMI and PCI of major diagonal branch 12/2023, and severe aortic stenosis. He is s/p TAVR with 29 mm Maria Isabel S3 valve on 04/25/2024. He had worsening first degree av block post procedure requiring reduction of beta shawn, Norvasc was added for HTN. He is here today for one year follow up appt and echocardiogram. Since our last visit he is no longer taking Coreg, BP has been controlled at home on Norvasc. He denies any chest pain, dyspnea, palpitations, syncope. 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 He is troubled with shoulder pain and anticipating surgery. Allergies[1] Current Medications[2] Medical History[3] Social History Tobacco Use Smoking status: Never Smokeless tobacco: Never Substance Use Topics Alcohol use: Not on file Surgical History[4] Family History[5] Objective Vitals: 03/30/25 1235 03/30/25 1245 BP: (!) 156/82 (!) 150/90 BP Location: Left arm Left arm Patient Position: Sitting Sitting BP Cuff Size: Adult Adult Pulse: 54 SpO2: 95% Weight: 144 lb 6.4 oz (65.5 kg) Height: 5' 4 (1.626 m) Physical Exam Constitutional: Appearance: Normal appearance. HENT: Head: Normocephalic and atraumatic. Nose: Nose normal. Eyes: Conjunctiva/sclera: Conjunctivae normal. Pupils: Pupils are equal, round, and reactive to light. Cardiovascular: Rate and Rhythm: Normal rate and regular rhythm. Pulmonary: Effort: Pulmonary effort is normal. Breath sounds: Normal breath sounds. Abdominal: General: Bowel sounds are normal. Palpations: Abdomen is soft. Musculoskeletal: General: Normal range of motion. Cervical back: Normal range of motion and neck supple. Skin: General: Skin is warm and dry. Neurological: General: No focal deficit present. Mental Status: He is alert and oriented to person, place, and time. Psychiatric: Mood and Affect: Mood normal. Thought Content: Thought content normal. 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 Continue ASA 81 mg until INR above 2.0, Disp: , Rfl: cholecalciferol (Vitamin D3) 25 MCG (1000 UT) tablet, Take 1,000 Units by mouth daily., Disp: , Rfl: cyanocobalamin (Vitamin B-12) 1000 MCG tablet, Take 1,000 mcg by mouth daily., Disp: , Rfl: finasteride (Proscar) 5 MG tablet, Take 5 mg by mouth daily. Do not crush, chew, or split., Disp: , Rfl: levothyroxine (Synthroid, Levoxyl) 100 MCG tablet, Take 100 mcg by mouth every morning (before breakfast)., Disp: , Rfl: Multiple Vitamin (multivitamin) capsule, Take 1 capsule by mouth daily., Disp: , Rfl: nitroglycerin (Nitrostat) 0.4 MG SL tablet, Place 0.4 mg under the tongue every 5 minutes as needed for chest pain., Disp: , Rfl: warfarin (Coumadin) 5 MG tablet, Take 5 mg by mouth daily. Take as directed per [facility], Disp: , Rfl: [3] Past Medical History: Diagnosis Date Atelectasis BPH (benign prostatic hyperplasia) Carotid dissection, bilateral (CMS/HCC) (HCC) Chest pain Hearing loss of left ear Hematuria Hyperlipidemia Hypothyroidism Malignant thymoma (HCC) Nonrheumatic aortic (valve) stenosis Nonrheumatic mitral valve regurgitation SERGO (obstructive sleep apnea) Paroxysmal A-fib (HCC) Pericarditis (HHS/HCC) SVT (supraventricular tachycardia) (HCC) [4] Past Surgical History: Procedure Laterality Date CARDIAC CATHETERIZATION N/A 01/20/2024 Performed by Beck Santillan MD at [facility] Cardiac Cath/EP Lab CARDIAC CATHETERIZATION N/A 01/20/2024 Performed by Beck Santillan MD at [facility] Cardiac Cath/EP Lab CARDIAC CATHETERIZATION N/A 04/25/2024 Performed by Beck Santillan MD at [facility] OR [5] No family history on file. 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 January 19 9:41am Paroxysmal A-fib chronic December 242024 9:41am [facility] Work Phone: [phone]) 682-275702-28-2025 Note07/22/24 1229 General Care Management Assessment completed with: Patient Living arrangement: Spouse Support system: Spouse Type of residence: Private residence Home care services: No Equipment used at home: None Communication device: Yes Bed or wheelchair confined: No Inadequate nutrition: No Medication adherence problem: No Difficulty keeping appointments: [facility]02-04-2025 Note 06/28/24 0949 General Care Management Assessment completed with: Patient Enrolled in care management program: Yes Living arrangement: Spouse Support system: Spouse Type of residence: Private residence Home care services: No Equipment used at home: None Communication device: Yes Bed or wheelchair confined: No Inadequate nutrition: No Medication adherence problem: No Difficulty keeping appointments: [facility]02-04-2025 History of Present illness Narrative* Nannette Nicolas - 06/28/2024 9:50 AM EST 06/28/24 0949 General Care Management Assessment completed with: Patient Enrolled in care management program: Yes Living arrangement: Spouse Support system: Spouse Type of residence: Private residence Home care services: No Equipment used at home: None Communication device: Yes Bed or wheelchair confined: No Inadequate nutrition: No Medication adherence problem: No Difficulty keeping appointments: No * Nannette Nicolas - 06/28/2024 9:40 AM EST 06/28/24 Community Health Worker Patient active with: [facility] RN Gabriela Rehman Chart review completed. Follow up Appointments 03/30 Cardiology 04/09 Echo/Stress Called patient and identified role and reason for call. Patient stated that he feels a tiredness, but more than that he feels fine. We inquired about his medication and he noted that he is taking all his medication as prescribed. CHW let know the patient that this information will be shared with the RN and she will follow up. Patient agreed and verbalized understanding. Patient denies any other needs at this time. Outreach scheduled documented in this [facility]01-09-2025 History of Present illness Narrative* Kaila Curiel, JIG GRINDER - FACILITY MAINTENANCE WORKER - 06/02/2024 1:00 PM EST Images from the original note were not included. [facility] [address] [address] Dept: [phone] Dept Visit type: Established : 1945 Reason for Visit: Assessment and Plan 1. Paroxysmal atrial fibrillation (HCC). On warfarin, coreg 3.125 mg po bid 2. Aortic stenosis, severe. S/p TAVR. Echo today shows normal EF and normal biopros valve function with 1 + AI. Continue warfarin, SBE prophylaxis - ECG 12 lead - CLINIC PERFORMED - Transthoracic echocardiogram (TTE) complete with contrast, bubble, strain, and 3D PRN 3. First degree AV block. Stable. Await full MCT report. 4. HTN. BP controlled on Norvasc and Coreg 5. CAD. Hx of LAD stents, PCI major diag 12/2023. No angina. Warfarin in lieu of ASA. Intolerant of statins. LDL cholesterol 139 12/2023. Will consider ezetimibe. Dr. Ortiz 4-6 months, MM one year Subjective Mr Ree is an 78 yr old male with a PMH of BPH, HPL, hypothyroidism, malignant thymoma s/p resection, carotid dissection, SERGO, AF on Coumadin CAD- s/p remote LAD stents; NSTEMI and PCI of major diagonal branch 12/2023, and severe aortic stenosis. He is s/p TAVR with 29 mm Maria Isabel S3 valve on 04/25/2024. Last OV we reduced coreg and placed MCT for worsening first degree AV block. Norvasc was increased for uncontrolled hypertension in the interim. He is here today for one month follow up. In review of his MCT in [facility], there has been no high degree AV block or bradycardia. He denies dyspnea, chest pain, dizziness. Fatigue is improving. BP has been controlled at home Allergies Allergen Reactions Levofloxacin achiness Lisinopril Didn't control bp well, labile Rosuvastatin Severe malagias Ceftriaxone Rash Cefuroxime Rash Cephalexin Pain in joints Outpatient Medications Prior to Visit Medication Sig Dispense Refill acetaminophen (Tylenol) 500 MG tablet Take 1,000 mg by mouth 3 times daily as needed for mild pain (1-3). amiodarone (Pacerone) 100 MG tablet Take 100 mg by mouth daily. amLODIPine (Norvasc) 5 MG tablet Take 10 mg by mouth daily. aspirin 81 MG EC tablet Take 1 tablet (81 mg) by mouth daily. Continue ASA 81 mg until INR above 2.0 carvedilol (Coreg) 3.125 MG tablet Take 1 tablet (3.125 mg) by mouth 2 times daily (with meals). 60tablet 11 cholecalciferol (Vitamin D3) 25 MCG (1000 UT) tablet Take 1,000 Units by mouth daily. clopidogrel (Plavix) 75 MG tablet Take 1 tablet (75 mg) by mouth daily. 90 tablet 1 cyanocobalamin (Vitamin B-12) 1000 MCG tablet Take 1,000 mcg by mouth daily. finasteride (Proscar) 5 MG tablet Take 5 mg by mouth daily. Do not crush, chew, or split. levothyroxine (Synthroid, Levoxyl) 100 MCG tablet Take 100 mcg by mouth every morning (before breakfast). Multiple Vitamin (multivitamin) capsule Take 1 capsule by mouth daily. nitroglycerin (Nitrostat) 0.[address] 0.4 mg under the tongue every 5 minutes as needed for chest pain. warfarin (Coumadin) 5 MG tablet Take 5 mg by mouth daily. Take as directed per [facility] No facility-administered medications prior to visit. Past Medical History: Diagnosis Date Atelectasis BPH (benign prostatic hyperplasia) Carotid dissection, bilateral (CMS/HCC) (HCC) Chest pain Hearing loss of left ear Hematuria Hyperlipidemia Hypothyroidism Malignant thymoma (HCC) Nonrheumatic aortic (valve) stenosis Nonrheumatic mitral valve regurgitation SERGO (obstructive sleep apnea) Paroxysmal A-fib (CMS/HCC) (HCC) Pericarditis SVT (supraventricular tachycardia) ([facility]) Social History Tobacco Use Smoking status: Never Smokeless tobacco: Never Substance Use Topics Alcohol use: Not on file Past Surgical History: Procedure Laterality Date CARDIAC CATHETERIZATION N/A 01/20/2024 Performed by Beck Santillan MD at [facility] Cardiac Cath/EP Lab CARDIAC CATHETERIZATION N/A 01/20/2024 Performed by Beck Santillan MD at [facility] Cardiac Cath/EP Lab CARDIAC CATHETERIZATION N/A 04/25/2024 Performed by Beck Santillan MD at [facility] OR No family history on file. Objective Vitals: 06/02/24 1238 06/02/24 1622 BP: (!) 142/80 130/78 BP Location: Right arm Patient Position: Sitting BP Cuff Size: Adult Pulse: 67 SpO2: 96% Weight: 154 lb 6.4 oz (70 kg) Height: 5' 4 (1.626 m) Physical Exam Constitutional: Appearance: Normal appearance. HENT: Head: Normocephalic and atraumatic. Nose: Nose normal. Eyes: Conjunctiva/sclera: Conjunctivae normal. Pupils: Pupils are equal, round, and reactive to light. Cardiovascular: Rate and Rhythm: Normal rate and regular rhythm. Pulmonary: Effort: Pulmonary effort is normal. Breath sounds: Normal breath sounds. Abdominal: General: Bowel sounds are normal. Palpations: Abdomen is soft. Musculoskeletal: General: Normal range of motion. Cervical back: Normal range of motion and neck supple. Skin: General: Skin is warm and dry. Neurological: General: No focal deficit present. Mental Status: He is alert and oriented to person, place, and time. Psychiatric: Mood and Affect: Mood normal. Thought Content: Thought content normal. Data Reviewed and Summarized EF BP Date Value Ref Range Status 06/02/2024 67 55 - 100 % Final Review of tests/labs done/ordered within my specialty: EKG in office: Review of tests/labs done/ordered outside my specialty: Independent interpretation of tests: GABRIELA Hagan CNP documented in this [facility]01-03-2025 Note05/27/24 1024 General Care Management Assessment completed with: Patient Enrolled in care management program: Yes Living arrangement: Spouse Support system: Spouse;Family Type of residence: Private residence Home care services: No Equipment used at home: None Communication device: Yes Bed or wheelchair confined: No Inadequate nutrition: No Medication adherence problem: [facility]01-03-2025 History of Present illness Narrative* Nannette Nicolas - 05/27/2024 10:27 AM EST 05/27/24 1024 General Care Management Assessment completed with: Patient Enrolled in care management program: Yes Living arrangement: Spouse Support system: Spouse;Family Type of residence: Private residence Home care services: No Equipment used at home: None Communication device: Yes Bed or wheelchair confined: No Inadequate nutrition: No Medication adherence problem: No * Nannette Nicolas - 05/27/2024 10:15 AM EST 05/27/24 Community Health Worker Patient active with: [facility] JESSICA Rehman Chart review completed. Follow up Appointments 06/02/24 Cardiology (Stress Room) 06/02/24 Cardiology No recent missed appointments. Called patient and identified role and reason for call. Patient stated he is feeling OK, denies anyshortness of breath. Discussed upcoming appointments patient aware of date and time, denies transportation issues. Patient denies needs of refills. No need for Community Resources were identified at this time. Outreach scheduled documented in this [facility]12-31-2024 Telephone encounter Note* Telephone Encounter - Lois Briggs - 05/24/2024 12:53 PM EST scheduled [id number] Telephone encounter Note* Telephone Encounter - Lois Briggs - 05/24/2024 9:42 AM EST Can I get a 1 yr TAVR follow up echo order please? [id number] History of Present illness Narrative* Gabriela Rehman RN - 05/20/2024 5:41 PM EST EMR reviewed. Patient enrolled in [facility] Cardiac 90-day BPCI Program post-hospital discharge 04/26/24 to home. Dx: Severe Aortic stenosis, TAVR 04/25/24 discharge summary copied below. CM to follow 90 days post hospital-discharge. 21-day post hospital discharge outreach made unable to reach lvm. Future outreach scheduled. documented in this [facility]12-12-2024 NoteNarendra Jolly's notes in referral: no prior auth needed for MCT ([id number], [id number])- per Medicare A & B and [employer] supplement Thank you![facility]12-12-2024 Telephone encounter Note* Telephone Encounter - Syl Zacarias - 05/05/2024 4:21 PM EST Per Shanae'jared notes in referral: no prior auth needed for MCT ([id number], [id number])- per Medicare A & B and [employer] supplement Thank you! [facility] [id number] Miscellaneous Notes* Telephone Encounter - Syl Zacarias - 05/05/2024 4:21 PM EST Per Shanae's notes in referral: no prior auth needed for MCT ([id number], [id number])- per Medicare A & B and [employer] supplement Thank you! * Telephone Encounter - Audrey Whitney - 05/05/2024 4:18 PM EST PA is needed for STAT MCT ordered by Kaila Curiel for a TAVR patient. documented in this [facility]12-12-2024 Telephone encounter Note* Telephone Encounter - Audrey Whitney - 05/05/2024 4:18 PM EST PA is needed for STAT MCT ordered by Kaila Curiel for a TAVR patient. [facility] [id number] History of Present illness Narrative* Kaila Curiel, GABRIELA - FACILITY MAINTENANCE WORKER - 05/05/2024 2:00 PM EST Images from the original note were not included. [facility] CARD[facility] - [address] [address] Dept: [phone] Dept Visit type: Established : 1945 Reason for Visit: Hospital Follow-up Assessment and Plan 1. First degree AV block - ECG 12 lead - CLINIC PERFORMED - carvedilol (Coreg) 3.125 MG tablet; Take 1 tablet (3.125 mg) by mouth 2 times daily (with meals)., Starting Amber 05/05/2024, Until Thu05/05/2025, Normal - Cardiac laboratory monitor (30 days) - Transthoracic echocardiogram (TTE) complete with contrast, bubble, strain, and 3D PRN 2. Paroxysmal atrial fibrillation (HCC) - ECG 12 lead - CLINIC PERFORMED 3. Other specified heart block - ECG 12 lead - CLINIC PERFORMED - carvedilol (Coreg) 3.125 MG tablet; Take 1 tablet (3.125 mg) by mouth 2 times daily (with meals)., Starting Amber 05/05/2024, Until Thu05/05/2025, Normal - Cardiac laboratory monitor (30 days) - Transthoracic echocardiogram (TTE) complete with contrast, bubble, strain, and 3D PRN 4. Aortic valve stenosis, etiology of cardiac valve disease unspecified - Transthoracic echocardiogram (TTE) complete with contrast, bubble, strain, and 3D PRN 5. Abnormal EKG - ECG 12 lead - CLINIC PERFORMED - carvedilol (Coreg) 3.125 MG tablet; Take 1 tablet (3.125 mg) by mouth 2 times daily (with meals)., Starting Amber 05/05/2024, Until Thu05/05/2025, Normal - Cardiac laboratory monitor (30 days) - Transthoracic echocardiogram (TTE) complete with contrast, bubble, strain, and 3D PRN 6. S/P TAVR (transcatheter aortic valve replacement) - ECG 12 lead - CLINIC PERFORMED - carvedilol (Coreg) 3.125 MG tablet; Take 1 tablet (3.125 mg) by mouth 2 times daily (with meals)., Starting Amber 05/05/2024, Until Thu05/05/2025, Normal - Cardiac laboratory monitor (30 days) - Transthoracic echocardiogram (TTE) complete with contrast, bubble, strain, and 3D PRN Patient has developed worsening first degree heart block post TAVR and will require MCT today. Planecho and re-evaluation in one month. SBE prophylaxis. Decrease Coreg to 3.125 mg daily. HE will continue Plavix for CAD and warfarin for AF- mgt per [place] [facility]. Follow up in about 4 weeks (around 06/02/2024) for echo/ANGELES one month. Subjective Mr Keenan is an 78 yr old male with a PMH of BPH, HPL, hypothyroidism, malignant thymoma s/p resection, carotid dissection, SERGO, AF on Coumadin CAD- s/p remote LAD stents; NSTEMI and PCI of major diagonal branch 12/2023, and severe aortic stenosis. He is s/p TAVR with 29 mm Maria Isabel S3 valve on 04/25/2024. He had some minor bleeding from his access site post procedure that resolved with manual pressure. He was discharged on POD 1. At mi is was recommended he take Coumadin, Plavix, and ASA until INR above 2, at which time ASA would be stopped. He is here today for one week follow up appt. He notes fatigue. No dyspnea or chest pain. He denies syncope or dizziness. Allergies Allergen Reactions Levofloxacin achiness Lisinopril Didn't control bp well, labile Rosuvastatin Severe malagias Ceftriaxone Rash Cefuroxime Rash Cephalexin Pain in joints Outpatient Medications Prior to Visit Medication Sig Dispense Refill amLODIPine (Norvasc) 5 MG tablet Take 2.5 mg by mouth daily. (Patient taking differently: Take 5 mgby mouth daily.) acetaminophen (Tylenol) 500 MG tablet Take 1,000 mg by mouth 3 times daily as needed for mild pain (1-3). amiodarone (Pacerone) 100 MG tablet Take 100 mg by mouth daily. aspirin 81 MG EC tablet Take 1 tablet (81 mg) by mouth daily. Continue ASA 81 mg until INR above 2.0 cholecalciferol (Vitamin D3) 25 MCG (1000 UT) tablet Take 1,000 Units by mouth daily. clopidogrel (Plavix) 75 MG tablet Take 1 tablet (75 mg) by mouth daily. 90 tablet 1 cyanocobalamin (Vitamin B-12) 1000 MCG tablet Take 1,000 mcg by mouth daily. finasteride (Proscar) 5 MG tablet Take 5 mg by mouth daily. Do not crush, chew, or split. levothyroxine (Synthroid, Levoxyl) 100 MCG tablet Take 100 mcg by mouth every morning (before breakfast). Multiple Vitamin (multivitamin) capsule Take 1 capsule by mouth daily. nitroglycerin (Nitrostat) 0.[address] 0.4 mg under the tongue every 5 minutes as needed for chest pain. warfarin (Coumadin) 5 MG tablet Take 5 mg by mouth daily. Take as directed per [facility] carvedilol (Coreg) 12.5 MG tablet Take 12.5 mg by mouth in the morning and 12.5 mg in the evening. Take with meals. No facility-administered medications prior to visit. Past Medical History: Diagnosis Date Atelectasis BPH (benign prostatic hyperplasia) Carotid dissection, bilateral (CMS/HCC) (HCC) Chest pain Hearing loss of left ear Hematuria Hyperlipidemia Hypothyroidism Malignant thymoma (HCC) Nonrheumatic aortic (valve) stenosis Nonrheumatic mitral valve regurgitation SERGO (obstructive sleep apnea) Paroxysmal A-fib (CMS/HCC) (HCC) Pericarditis SVT (supraventricular tachycardia) ([facility]) Social History Tobacco Use Smoking status: Never Smokeless tobacco: Never Substance Use Topics Alcohol use: Not on file Past Surgical History: Procedure Laterality Date CARDIAC CATHETERIZATION N/A 01/20/2024 Performed by Beck Santillan MD at [facility] Cardiac Cath/EP Lab CARDIAC CATHETERIZATION N/A 01/20/2024 Performed by Beck Santillan MD at [facility] Cardiac Cath/EP Lab CARDIAC CATHETERIZATION N/A 04/25/2024 Performed by Beck Santillan MD at [facility] OR No family history on file. Objective Vitals: 05/05/24 1406 BP: 138/72 BP Location: Left arm Patient Position: Sitting BP Cuff Size: Adult Pulse: 52 SpO2: 96% Weight: 154 lb (69.9 kg) Height: 5' 4 (1.626 m) Physical Exam Constitutional: Appearance: Normal appearance. HENT: Head: Normocephalic and atraumatic. Nose: Nose normal. Eyes: Conjunctiva/sclera: Conjunctivae normal. Pupils: Pupils are equal, round, and reactive to light. Cardiovascular: Rate and Rhythm: Normal rate and regular rhythm. Pulmonary: Effort: Pulmonary effort is normal. Breath sounds: Normal breath sounds. Abdominal: General: Bowel sounds are normal. Palpations: Abdomen is soft. Musculoskeletal: General: Normal range of motion. Cervical back: Normal range of motion and neck supple. Skin: General: Skin is warm and dry. Neurological: General: No focal deficit present. Mental Status: He is alert and oriented to person, place, and time. Psychiatric: Mood and Affect: Mood normal. Thought Content: Thought content normal. Data Reviewed and Summarized EF BP Date Value Ref Range Status 04/25/2024 61 55 - 100 % Final Review of tests/labs done/ordered within my specialty: EKG in office: SR with first degree AV block. Worsening [place] Review of tests/labs done/ordered outside my specialty: Independent interpretation of tests: GABRIELA Hagan CNP documented in this [facility]12-12-2024 History of Present illness Narrative* GABRIELA Hagan CNP - 05/05/2024 2:00 PM EST Images from the original note were not included. [facility] [place] [address] [facility] [address] Dept: [phone] Dept Visit type: Established : 1945 Reason for Visit: Hospital Follow-up Assessment and Plan 1. First degree AV block - ECG 12 lead - CLINIC PERFORMED - carvedilol (Coreg) 3.125 MG tablet; Take 1 tablet (3.125 mg) by mouth 2 times daily (with meals)., Starting Thu05/05/2024, Until Thu05/05/2025, Normal - Cardiac laboratory monitor (30 days) - Transthoracic echocardiogram (TTE) complete with contrast, bubble, strain, and 3D PRN 2. Paroxysmal atrial fibrillation (HCC) - ECG 12 lead - CLINIC PERFORMED 3. Other specified heart block - ECG 12 lead - CLINIC PERFORMED - carvedilol (Coreg) 3.125 MG tablet; Take 1 tablet (3.125 mg) by mouth 2 times daily (with meals)., Starting [place] 05/05/2024, Until Thu05/05/2025, Normal - Cardiac laboratory monitor (30 days) - Transthoracic echocardiogram (TTE) complete with contrast, bubble, strain, and 3D PRN 4. Aortic valve stenosis, etiology of cardiac valve disease unspecified - Transthoracic echocardiogram (TTE) complete with contrast, bubble, strain, and 3D PRN 5. Abnormal EKG - ECG 12 lead - CLINIC PERFORMED - carvedilol (Coreg) 3.125 MG tablet; Take 1 tablet (3.125 mg) by mouth 2 times daily (with meals)., Starting Thu05/05/2024, Until Thu05/05/2025, Normal - Cardiac laboratory monitor (30 days) - Transthoracic echocardiogram (TTE) complete with contrast, bubble, strain, and 3D PRN 6. S/P TAVR (transcatheter aortic valve replacement) - ECG 12 lead - CLINIC PERFORMED - carvedilol (Coreg) 3.125 MG tablet; Take 1 tablet (3.125 mg) by mouth 2 times daily (with meals)., Starting [facility] 05/05/2024, Until Thu05/05/2025, Normal - Cardiac laboratory monitor (30 days) - Transthoracic echocardiogram (TTE) complete with contrast, bubble, strain, and 3D PRN Patient has developed worsening first degree heart block post TAVR and will require MCT today. Planecho and re-evaluation in one month. SBE prophylaxis. Decrease Coreg to 3.125 mg bid daily. HE willcontinue Plavix for CAD and warfarin for AF- mgt per [place] [facility]. He was advised to stop ASA. His CAD is stable. He has prior intol to statins. He is not interested in cardiac rehab at this time but will begin resuming low grade activity. BP is controlled to today but will need to follow in light of change in Coreg dose. Follow up in about 4 weeks (around 06/02/2024) for echo/ANGELES one month. Subjective Mr Keenan is an 78 yr old male with a PMH of BPH, HPL, hypothyroidism, malignant thymoma s/p resection, carotid dissection, SERGO, AF on Coumadin CAD- s/p remote LAD stents; NSTEMI and PCI of major diagonal branch 12/2023, and severe aortic stenosis. He is s/p TAVR with 29 mm Maria Isabel S3 valve on 04/25/2024. He had some minor bleeding from his access site post procedure that resolved with manual pressure. He was discharged on POD 1. At mi is was recommended he take Coumadin, Plavix, and ASA until INR above 2, at which time ASA would be stopped. He is here today for one week follow up appt. He notes fatigue. No dyspnea or chest pain. He denies syncope or dizziness. Allergies Allergen Reactions Levofloxacin achiness Lisinopril Didn't control bp well, labile Rosuvastatin Severe malagias Ceftriaxone Rash Cefuroxime Rash Cephalexin Pain in joints Outpatient Medications Prior to Visit Medication Sig Dispense Refill amLODIPine (Norvasc) 5 MG tablet Take 2.5 mg by mouth daily. (Patient taking differently: Take 5 mgby mouth daily.) acetaminophen (Tylenol) 500 MG tablet Take 1,000 mg by mouth 3 times daily as needed for mild pain (1-3). amiodarone (Pacerone) 100 MG tablet Take 100 mg by mouth daily. aspirin 81 MG EC tablet Take 1 tablet (81 mg) by mouth daily. Continue ASA 81 mg until INR above 2.0 cholecalciferol (Vitamin D3) 25 MCG (1000 UT) tablet Take 1,000 Units by mouth daily. clopidogrel (Plavix) 75 MG tablet Take 1 tablet (75 mg) by mouth daily. 90 tablet 1 cyanocobalamin (Vitamin B-12) 1000 MCG tablet Take 1,000 mcg by mouth daily. finasteride (Proscar) 5 MG tablet Take 5 mg by mouth daily. Do not crush, chew, or split. levothyroxine (Synthroid, Levoxyl) 100 MCG tablet Take 100 mcg by mouth every morning (before breakfast). Multiple Vitamin (multivitamin) capsule Take 1 capsule by mouth daily. nitroglycerin (Nitrostat) 0.[address] 0.4 mg under the tongue every 5 minutes as needed for chest pain. warfarin (Coumadin) 5 MG tablet Take 5 mg by mouth daily. Take as directed per [facility] carvedilol (Coreg) 12.5 MG tablet Take 12.5 mg by mouth in the morning and 12.5 mg in the evening. Take with meals. No facility-administered medications prior to visit. Past Medical History: Diagnosis Date Atelectasis BPH (benign prostatic hyperplasia) Carotid dissection, bilateral (CMS/HCC) (HCC) Chest pain Hearing loss of left ear Hematuria Hyperlipidemia Hypothyroidism Malignant thymoma (HCC) Nonrheumatic aortic (valve) stenosis Nonrheumatic mitral valve regurgitation SERGO (obstructive sleep apnea) Paroxysmal A-fib (CMS/HCC) (HCC) Pericarditis SVT (supraventricular tachycardia) ([facility]) Social History Tobacco Use Smoking status: Never Smokeless tobacco: Never Substance Use Topics Alcohol use: Not on file Past Surgical History: Procedure Laterality Date CARDIAC CATHETERIZATION N/A 01/20/2024 Performed by Beck Santillan MD at [facility] Cardiac Cath/EP Lab CARDIAC CATHETERIZATION N/A 01/20/2024 Performed by Beck Santillan MD at [facility] Cardiac Cath/EP Lab CARDIAC CATHETERIZATION N/A 04/25/2024 Performed by Beck Santillan MD at [facility] OR No family history on file. Objective Vitals: 05/05/24 1406 BP: 138/72 BP Location: Left arm Patient Position: Sitting BP Cuff Size: Adult Pulse: 52 SpO2: 96% Weight: 154 lb (69.9 kg) Height: 5' 4 (1.626 m) Physical Exam Constitutional: Appearance: Normal appearance. HENT: Head: Normocephalic and atraumatic. Nose: Nose normal. Eyes: Conjunctiva/sclera: Conjunctivae normal. Pupils: Pupils are equal, round, and reactive to light. Cardiovascular: Rate and Rhythm: Normal rate and regular rhythm. Pulmonary: Effort: Pulmonary effort is normal. Breath sounds: Normal breath sounds. Abdominal: General: Bowel sounds are normal. Palpations: Abdomen is soft. Musculoskeletal: General: Normal range of motion. Cervical back: Normal range of motion and neck supple. Skin: General: Skin is warm and dry. Neurological: General: No focal deficit present. Mental Status: He is alert and oriented to person, place, and time. Psychiatric: Mood and Affect: Mood normal. Thought Content: Thought content normal. Data Reviewed and Summarized EF BP Date Value Ref Range Status 04/25/2024 61 55 - 100 % Final Review of tests/labs done/ordered within my specialty: EKG in office: SR with first degree AV block. Worsening [place] Review of tests/labs done/ordered outside my specialty: Independent interpretation of tests: GABRIELA Hagan CNP documented in this [facility]12-03-2024 NoteName: Hang Keenan Date of : 1945 Date of Admission: 04/25/2024 Date of Discharge: 04/26/2024 Admitting physician: Beck Santillan MD Discharge Attending: GABRIELA Hagan CNP, MD Primary Care Physician: BI Manzo Reason for Admission: Severe Symptomatic Aortic Stenosis Consultants: cardiac rehab HOSPITAL ADMISSION PROBLEM LIST: Patient Active Problem List Diagnosis Aortic stenosis, moderate Malignant thymoma (HCC) Paroxysmal atrial fibrillation (HCC) Aortic stenosis, severe Severe aortic stenosis Patient up in chair this am. Denies any chest pain, dyspnea, groin or wrist complaints. He reports not sleeping well, anxious to go home Review of Systems Review of Systems Constitutional: Negative for activity change, chills, diaphoresis, fatigue and fever. HENT: Negative for nosebleeds and trouble swallowing. Eyes: Negative for discharge and visual disturbance. Respiratory: Negative for apnea, cough, chest tightness, shortness of breath and wheezing. Cardiovascular: Negative for chest pain, palpitations and leg swelling. Gastrointestinal: Negative for abdominal distention, abdominal pain, blood in stool, diarrhea, nausea and vomiting. Endocrine: Negative for cold intolerance and heat intolerance. Genitourinary: Negative for hematuria. Musculoskeletal: Negative for gait problem and myalgias. Skin: Negative for color change and rash. Neurological: Negative for dizziness, seizures, syncope, facial asymmetry, speech difficulty, weakness, light-headedness, numbness and headaches. Hematological: Does not bruise/bleed easily. Psychiatric/Behavioral: Negative for dysphoric mood. Physical Exam Physical Exam Constitutional: Appearance: Normal appearance. HENT: Head: Normocephalic and atraumatic. Nose: Nose normal. Eyes: Conjunctiva/sclera: Conjunctivae normal. Pupils: Pupils are equal, round, and reactive to light. Cardiovascular: Rate and Rhythm: Normal rate and regular rhythm. Heart sounds: Murmur heard. Systolic murmur is present with a grade of 1/6. Pulmonary: Effort: Pulmonary effort is normal. Breath sounds: Normal breath sounds. Abdominal: General: Bowel sounds are normal. Palpations: Abdomen is soft. Musculoskeletal: General: Normal range of motion. Cervical back: Normal range of motion and neck supple. Skin: General: Skin is warm and dry. Comments: Right groin ecchymotic, soft Neurological: General: No focal deficit present. Mental Status: He is alert and oriented to person, place, and time. Psychiatric: Mood and Affect: Mood normal. Thought Content: Thought content normal. Procedures: Transfemoral transcatheter AVR with 29 mm Maria Isabel S3 valve under moderate sedation Transthoracic echocardiogram HOSPITAL COURSE : The patient was admitted to the hospital for elective TAVR on 04/25/2024 . A 29 mm Maria Isabel S3 valve was implanted. The patient returned to [facility] for recovery. Vital signs and labs were stable. Post procedure, there was some groin bleeding that was stabilized with manual pressure and femstop. The patient was ambulatory the morning after the procedure. Post procedure echocardiogram demonstrated : Left Ventricle: Left ventricle size is normal. Moderately increased wall thickness. Normal left ventricular systolic function. EF by 2D Simpsons Biplane is 61%. Global longitudinal strain is reduced with a value of -15.4%. Normal wall motion. Right Ventricle: Right ventricle size is normal. Normal systolic function. Aortic Valve: Eisenberg Maria Isabel 3 Ultra bioprosthetic aortic valve with a size of 29mm mm. AV mean gradient is 7 mmHg. No cusp thickening. No cusp calcification. No regurgitation. Mild (1+) paravalvular regurgitation. No stenosis. AV mean gradient is 7 mmHg. AV peak velocity is 2.1 m/s. LVOT:AV VTI Index is 0.47. AV area by continuity VTI is 1.4 cm2. Patient education including SBE prophylaxis, activity, access site care, follow up appointments, and medications was provided. The patient verbalized understanding, questions were answered. The patient was discharged home in good condition. Referral to cardiac rehabilitation has been recommended and discussed with the patient prior to discharge. Referral has been made to the [facility] Outpatient Cardiac Rehabilitation Program. Last Labs: Lab Results Component Value Date WBC 9.6 04/26/2024 HGB 15.2 04/26/2024 HCT 45.0 04/26/2024 MCV 92.2 04/26/2024 PLT 274 04/26/2024 Lab Results Component Value Date NA 137 04/26/2024 K 3.9 04/26/2024 CL 106 04/26/2024 CO2 22 04/26/2024 BUN 16 04/26/2024 CREATININE 0.76 04/26/2024 GLUCOSE 91 04/26/2024 CALCIUM 8.6 04/26/2024 Lab Results Component Value Date CHOL 215 (H) 01/20/2024 Lab Results Component Value Date TRIG 107 01/20/2024 Lab Results Component Value Date HDL 55 01/20/2024 Lab Results Component Value Date LDLC (more content not included)...[facility]12-03-2024 Consult note* Roseline Dickinson - 04/26/2024 9:55 AM ESTAssociated Order(s): IP CONSULT TO CARDIAC REHAB Received Cardiopulmonary Rehab Referral and reviewed chart. Phase II Cardiopulmonary Rehab Referraldiscussed with Hang Keenan. Patient declined program at this time. Information left with patient. [id number] NoteReceived Cardiopulmonary Rehab Referral and reviewed chart. Phase II Cardiopulmonary Rehab Referral discussed with Hang Keenan. Patient declined program at this time. Information left with patient. [facility]12-03-2024 Consult note* Roseline Dickinson - 04/26/2024 9:55 AM ESTAssociated Order(s): IP CONSULT TO CARDIAC REHAB Received Cardiopulmonary Rehab Referral and reviewed chart. Phase II Cardiopulmonary Rehab Referraldiscussed with Hang Keenan. Patient declined program at this time. Information left with patient. documented in this [facility]12-02-2024 Plan of care note* Care Plan - Esa Clark RN - 04/25/2024 6:22 PM EST Problem: Knowledge Deficit Goal: Patient/family/caregiver demonstrates understanding of disease process, treatment plan, medications, and discharge instructions Outcome: Progressing Problem: Potential for Compromised Skin Integrity Goal: Skin Integrity is Maintained or Improved Outcome: Progressing Goal: Nutritional status is improving Outcome: Progressing Problem: Urinary Incontinence Goal: Perineal skin integrity is maintained or improved Outcome: Progressing [facility] [id number] Miscellaneous Notes* Care Plan - Esa Clark RN - 04/25/2024 6:22 PM EST Problem: Knowledge Deficit Goal: Patient/family/caregiver demonstrates understanding of disease process, treatment plan, medications, and discharge instructions Outcome: Progressing Problem: Potential for Compromised Skin Integrity Goal: Skin Integrity is Maintained or Improved Outcome: Progressing Goal: Nutritional status is improving Outcome: Progressing Problem: Urinary Incontinence Goal: Perineal skin integrity is maintained or improved Outcome: Progressing * Op Note - Raffy Appiah DO - 04/25/2024 10:43 AM EST CARDIOTHORACIC SURGERY--OPERATIVE NOTE Date: 04/25/24 Preoperative diagnosis: Severe symptomatic aortic stenosis Chronic diastolic congestive heart failure Frailty Postoperative diagnosis: Severe symptomatic aortic stenosis Chronic diastolic congestive heart failure Frailty Surgeon: Jaskaran Appiah DO [employer]: Beck Santillan MD Linux Kernel Engineer: Obi Richards MD Procedure: Transcatheter aortic valve replacement with 29 mm MARIA ISABEL S3 valve Balloon aortic valvuloplasty Transthoracic echocardiogram Complications: None Anesthesia: Local with conscious sedation Indications for procedure: The patient is a 78 year-old male with severe, symptomatic aortic valve stenosis. The case was reviewed in the valve clinic in the valve conference and the patient was deemed a candidate for TAVR. Procedure in detail: The patient was positioned supine on the operating room table. The patient was prepped and draped in usual sterile fashion. Vascular access was gained in the right common femoral artery, right radialartery and right common femoral vein. Systemic heparin 100 mg/kg was given. Please refer to the cardiology dictation for placement of wires and sheaths. Temporary ventricular pacing wire was placed into the right ventricle using fluoroscopic guidance. After determination of the deployment angle theexpandable sheath was placed through the right femoral artery. The valve was crossed with a straight wire and exchanged for an Amplatz Extra Stiff wire. A 24 mm balloon was passed across the valve and inflated. The valve was introduced through the E sheath into the descending thoracic aorta where it was mounted on the balloon. This was then passed across the aortic arch and the aortic valve annulus. The valve was deployed under rapid ventricular pacing. It appeared to be well seated. Echocardiogram confirmed good position, mild paravalvular leak, and appropriate gradients. The valve was post-dilated with an extra milliliter of fluid which resolved the paravalvular leak to a trivial level. The deployment device was removed. Protamine was then given to reverse the systemic effects of heparin and the patient was subsequently decannulated and transferred stable to the recovery room. She tolerated the procedure well. Disposition: Stable to ICU Jaskaran Appiah DO [facility] Cardiothoracic Surgery documented in this [facility]12-02-2024 Hospital Discharge instructions* Discharge Instructions* Kaila Curiel, JIG GRINDER - FACILITY MAINTENANCE WORKER - 04/25/2024 2:19 PM EST - Please have INR checked at Dr. Kim's office in 3-5 days after resuming Coumadin. Coumadin to beresumed 12/ evening dose. Stop aspirin when INR above 2 -Please call the Heart Valve Clinic with any questions: [phone] -You will have have the following follow up appointments in the Heart Valve Clinic: one week post procedure, one month post procedure with echocardiogram, one year post procedure with echocardiogram. -Wash groin/wrist incision with soap and water, pat dry. Apply bandage for 5 days. If you have a chest incision, you will receive specific instructions from your surgeon regarding care of the incision. -Check incision every day. If you see any changes in the way it looks, call the Heart Valve Clinic at . Look for any of these problems: redness and warmth that does not go away, yellow or green drainage from the wound, fever and chills, numbness in your legs, pain that is getting worse. -It is normal to have a bruise or soft lump in the groin. This will get smaller and go away with time -Do not drive until after your first Heart Valve Clinic Appointment. -Do not lift, push, or pull anything weighing more than 5 lbs or more for one week if you had the procedure through your groin and 4 weeks if you had the procedure through the chest -We strongly encourage a regular exercise program such as cardiac rehabilitation once you have beencleared to resume normal activity. -Eating well is important for your recovery. Eat nutritious foods every day. Please follow a cardiac, 2 gram sodium diet. Please continue to follow any other dietary recommendations provided by your health care provider prior to your valve surgery. -From now on, tell your doctors and health care providers about your heart valve implantation (prosthetic heart valve ). -If you go to the emergency room or are admitted to the hospital during the first year after your procedure, please call the Heart Valve Clinic at -If you have major dental work or other invasive medical procedures (like surgery) you may need to take antibiotics before the dental work or the procedure. Please discuss with your health care provider. - You will need to take blood thinning medications (antiplatelet) after your valve procedure. Generally, this includes aspirin alone, unless you take blood thinning medications for another indication(warfarin, apixaban, rivaroxaban). If you take blood thinning medications, these are generally sufficient and aspirin will not be required unless otherwise specified. documented in this [facility]12-02-2024 NotePatient: Hang Herrmayte Procedure Summary Date: 04/25/24 Room / Location: [facility] [place] Operating Room Anesthesia Start: 1042 Anesthesia Stop: 1224 Procedures: TRANSCATHETER AORTIC VALVE REPLACEMENT, TRANSTHORACIC ECHOCARDIOGRAM TRANSCATHETER AORTIC VALVE REPLACEMENT, TRANSTHORACIC ECHOCARDIOGRAM (Chest) Diagnosis: Aortic stenosis, severe Surgeons: Beck Santillan MD; Raffy Appiah DO Responsible Provider: Hang Walls MD Anesthesia Type: MAC ASA Status: 4 Anesthesia Type: MAC Vitals Value Taken Time BP 120/80 04/25/24 1229 Temp 36.2 ?C (97.2 ?F) 04/25/24 1229 Pulse 54 04/25/24 1229 Resp 16 04/25/24 1229 SpO2 96 % 04/25/24 1229 Anesthesia Post Evaluation Patient location during evaluation: PACU Patient participation: complete - patient participated Level of consciousness: awake and alert Pain management: satisfactory to patient Airway patency: patent Dental Injury: no Cardiovascular status: acceptable, blood pressure returned to baseline and hemodynamically stable Respiratory status: acceptable and spontaneous ventilation Hydration status: euvolemic Nausea/Vomiting: controlled No notable events documented. Patient can be discharged once all PACU criteria has been met.[facility]12-02-2024 NotePatient: Hang Keenan Procedure Summary Date: 04/25/24 Room / Location: [facility] [place] Operating Room Anesthesia Start: 1042 Anesthesia Stop: 122 Procedures: TRANSCATHETER AORTIC VALVE REPLACEMENT, TRANSTHORACIC ECHOCARDIOGRAM TRANSCATHETER AORTIC VALVE REPLACEMENT, TRANSTHORACIC ECHOCARDIOGRAM (Chest) Diagnosis: Aortic stenosis, severe Surgeons: Beck Santillan MD; Raffy Appiah DO Responsible Provider: Hang Walls MD Anesthesia Type: MAC ASA Status: 4 Anesthesia Type: MAC Vitals Value Taken Time BP 120/80 04/25/24 1229 Temp 36.2 ?C (97.2 ?F) 04/25/24 1229 Pulse 54 04/25/24 1229 Resp 16 04/25/24 1229 SpO2 96 % 04/25/24 1229 Anesthesia Post Evaluation Patient location during evaluation: PACU Patient participation: complete - patient participated Level of consciousness: awake and alert Pain management: satisfactory to patient Multimodal analgesia pain management approach Airway patency: patent Two or more strategies used to mitigate risk of obstructive sleep apnea Cardiovascular status: acceptable and hemodynamically stable Respiratory status: acceptable Hydration status: acceptable No notable events documented. MIPS #430 PONV Patient did not receive an inhalational anesthetic (XX430) MIPS # 424 Perioperative Temperature Management Anesthesia time was 60 minutes or longer (4255F) Anesthesai administered was General (inhalational or TIVA) or Neuraxial block (X0424) At least one body temperature greater than 95.8F/35.5C achieved within the 30 mins immediately prior to or the 15 minutes immediately following anesthesia end time (G9771) MIPS #477 Multimodal Pain Management Not emergent case Patient was administered multimodal pain management (two or more drugs and/or interventions excluding systemic opioids) in the periopeartive period occurring at some time between 6 hours prior to anesthesia start time until discharged from PACU (G2148) MIPS #404 Anesthesiology Smoking Abstinence The patient is not a current smoker (e.g. cigarette, cigar, pipe, e-cigarette/vaping/marijuana) If no stop here (XX404) I completed my handoff to the receiving clinician during which we: 1. Identified the patient 2. Identified the responsible provider 3. Reviewed the pertinent medical history 4. Discussed the surgical course 5. Reviewed intra-op anesthesia management and issues during anesthesia 6. Set expectations for post-procedure period 7. Allowed opportunity for questions and acknowledgement of understanding.[facility] [id number] NoteArterial Line: Date/Time: 04/25/2024 11:20 AM An arterial line was placed Procedure performed using ultrasound guidance - Image permanently retained with wire or catheter in vein.in the Procedural for the following indication(s): continuous blood pressure monitoring and blood sampling needed. A 20 gauge (size), 1 and 3/4 inch (length), Arrow (type) catheter was placed, into the Right radial artery, secured by Tegaderm and tape. Events: patient tolerated procedure well with no complications. Staffing Performed: Other Other staff: Beck Santillan, [facility]12-02-2024 Attending History and physical note* Beck Santillan MD - 04/25/2024 10:43 AM EST H&P reviewed. The patient was examined and there are no changes to the H&P. Source Note - Jolene GABRIELA Resendiz - TASHI - 04/20/2024 9:58 AM EST Images from the original note were not included. H+ P copied to chart from (office provider's name Dr. Justin Resendiz) progress note dated 04/12/24 on behalf of (procedural physician's name Dr. Santillan). Expand All Collapse All [facility] [place] [address] [facility] [address] Dept: [phone] Dept Loc: [phone] Interventional Cardiology Office Note Visit type: Established patient Reason for Visit: Cardiac Valve Problem Assessment and Plan Hang Keenan is a very pleasant 78 y.o. male who presents for evaluation of his aortic stenosis. I personally reviewed his echocardiogram. He does have severe symptomatic aortic stenosis. He continues to have symptoms despite his PCI. We will plan to proceed with TAVR. The Transcatheter Aortic Valve Replacement (TAVR) procedure was explained in detail. The potential risks of the procedure including bleeding, vascular complications, stroke, myocardial infarction, arrhythmias, renal dysfunction, infection and were described. All of the patient's questions were answered. The patient expressed understanding of the procedure and the potential risks and wishes to proceed with TAVR at this time. 1. Aortic valve stenosis, etiology of cardiac valve disease unspecified - ECG 12 lead - CLINIC PERFORMED No follow-ups on file. It was a great pleasure seeing Hang Keenan in our office today. Please contact me with any questions. Justin Resendiz MD MPH, FACC, [facility] Chief, Ischemic Heart Disease Hvac R Instructor, Interventional Cardiology Fellowship Cobol Engineer Coronary, Structural, Peripheral Interventions Subjective Hang Keenan is a very pleasant 78 y.o. male with Aortic stenosis (peak/mean 50/31, aortic valve area 1, 1+ AI, ejection fraction 65%), coronary artery disease status post PCI to the LAD and diagonal in the setting of ACS, hypertension, hyperlipidemia, atrial fibrillation on anticoagulation, malignant thymoma, history of carotid dissection who presents for evaluation of his aortic stenosis. He had a recent non-STEMI in [place] and was found to have ostial diagonal disease. He was transferred to [facility] and his ostial diagonal was stented by Dr. Santillan. He was also found to have moderate to severe aortic stenosis. He felt better after his PCI but he continues to have worsening fatigue and some shortness of breath with exertion. He denies any lightheadedness or syncope. He is very active and wants to remain that way. Review of Systems Constitutional: Positive for fatigue. Negative for activity change, chills, diaphoresis and fever. HENT: Positive for hearing loss. Negative for nosebleeds and trouble swallowing. Eyes: Negative for discharge and visual disturbance. Respiratory: Negative for apnea, cough, chest tightness, shortness of breath and wheezing. Cardiovascular: Positive for chest pain. Negative for palpitations and leg swelling. Gastrointestinal: Negative for abdominal distention, abdominal pain, blood in stool, diarrhea, nausea and vomiting. Endocrine: Negative for cold intolerance and heat intolerance. Genitourinary: Negative for hematuria. Musculoskeletal: Negative for gait problem and myalgias. Skin: Negative for color change and rash. Neurological: Negative for dizziness, seizures, syncope, facial asymmetry, speech difficulty, weakness, light-headedness, numbness and headaches. Hematological: Does not bruise/bleed easily. Psychiatric/Behavioral: Negative for dysphoric mood. Allergies Allergies Allergen Reactions Cephalexin Pain in joints Levofloxacin achiness Lisinopril Didn't control bp well, labile Rosuvastatin Severe malagias Cefuroxime Rash Medications Prior to Visit Outpatient Medications Prior to Visit Medication Sig Dispense Refill acetaminophen (Tylenol) 500 MG tablet Take 1,000 mg by mouth 3 times daily as needed for mild pain (1-3). amiodarone (Pacerone) 100 MG tablet Take 100 mg by mouth daily. amLODIPine (Norvasc) 5 MG tablet Take 5 mg by mouth daily. carvedilol (Coreg) 12.5 MG tablet Take 12.5 mg by mouth in the morning and 12.5 mg in the evening. Take with meals. cholecalciferol (Vitamin D3) 25 MCG (1000 UT) tablet Take 1,000 Units by mouth daily. clopidogrel (Plavix) 75 MG tablet Take 1 tablet (75 mg) by mouth daily. 90 tablet 1 cyanocobalamin (Vitamin B-12) 1000 MCG tablet Take 1,000 mcg by mouth daily. finasteride (Proscar) 5 MG tablet Take 5 mg by mouth daily. Do not crush, chew, or split. levothyroxine (Synthroid, Levoxyl) 100 MCG tablet Take 100 mcg by mouth every morning (before breakfast). Multiple Vitamin (multivitamin) capsule Take 1 capsule by mouth daily. nitroglycerin (Nitrostat) 0.[address] 0.4 mg under the tongue every 5 minutes as needed for chest pain. warfarin (Coumadin) 5 MG tablet Take 5 mg by mouth daily. Take as directed per [facility] amLODIPine (Norvasc) 2.5 MG tablet Take 2.5 mg by mouth daily. atorvastatin (Lipitor) 80 MG tablet Take 1 tablet (80 mg) by mouth daily. 30 tablet 11 ketorolac (Acular) 0.5 % ophthalmic solution Administer 1 drop into both eyes in the morning and 1 drop at noon and 1 drop in the evening and 1 drop before bedtime. 5 mL 0 prednisoLONE acetate (Pred-Forte) 1 % ophthalmic suspension Administer 1 drop into both eyes in themorning and 1 drop at noon and 1 drop in the evening and 1 drop before bedtime. 15 mL 0 No facility-administered medications prior to visit. Medical History Past Medical History: Diagnosis Date Atelectasis BPH (benign prostatic hyperplasia) Carotid dissection, bilateral (CMS/HCC) (HCC) Chest pain Hearing loss of left ear Hematuria Hyperlipidemia Hypothyroidism Malignant thymoma (HCC) Nonrheumatic aortic (valve) stenosis Nonrheumatic mitral valve regurgitation SERGO (obstructive sleep apnea) Paroxysmal A-fib (CMS/HCC) (HCC) Pericarditis SVT (supraventricular tachycardia) (HCC) Surgical History Past Surgical History: Procedure Laterality Date CARDIAC CATHETERIZATION N/A 01/20/2024 Performed by Beck Santillan MD at [facility] Cardiac Cath/EP Lab CARDIAC CATHETERIZATION N/A 01/20/2024 Performed by Beck Santillan MD at [facility] Cardiac Cath/EP Lab Social History Tobacco Use Smoking status: Never Smokeless tobacco: Never Substance Use Topics Alcohol use: Not on file Family History No family history on file. Objective Vitals Vitals: 04/12/24 1236 BP: 124/82 BP Location: Left arm Patient Position: Sitting BP Cuff Size: Adult Pulse: 55 SpO2: 94% Weight: 154 lb 9.6 oz (70.1 kg) Height: 5' 4 (1.626 m) Body mass index is 26.54 kg/m . Physical Exam Constitutional: General: He is not in acute distress. Appearance: Normal appearance. He is not toxic-appearing. HENT: Head: Normocephalic and atraumatic. Nose: Nose normal. Mouth/Throat: Mouth: Mucous membranes are moist. Eyes: Pupils: Pupils are equal, round, and reactive to light. Neck: Vascular: Carotid bruit present. No JVD. Cardiovascular: Rate and Rhythm: Regular rhythm. Bradycardia present. Pulses: Dorsalis pedis pulses are 2+ on the right side and 2+ on the left side. Posterior tibial pulses are 2+ on the right side and 2+ on the left side. Heart sounds: Murmur heard. Crescendo systolic murmur is present with a grade of 3/6. Pulmonary: Effort: Pulmonary effort is normal. No respiratory distress. Breath sounds: Normal breath sounds. Abdominal: General: Abdomen is flat. Palpations: Abdomen is soft. Musculoskeletal: General: Normal range of motion. Cervical back: Normal range of motion and neck supple. Right lower leg: No edema. Left lower leg: No edema. Skin: General: Skin is warm and dry. Neurological: General: No focal deficit present. Mental Status: He is alert and oriented to person, place, and time. Psychiatric: Mood and Affect: Mood normal. Data Reviewed and Summarized Labs: personally reviewed Lab Results Component Value Date WBC 8.2 04/12/2024 HGB 15.8 04/12/2024 HCT 46.1 04/12/2024 MCV 90.9 04/12/2024 PLT 346 04/12/2024 Lab Results Component Value Date GLUCOSE 65 (L) 04/12/2024 CALCIUM 9.3 04/12/2024 NA 134 (L) 04/12/2024 K 4.3 04/12/2024 CO2 21 (L) 04/12/2024 CL 103 04/12/2024 BUN 19 04/12/2024 CREATININE 0.91 04/12/2024 @LASTCMP@ Lab Results Component Value Date CHOL 215 (H) 01/20/2024 Lab Results Component Value Date TRIG 107 01/20/2024 Lab Results Component Value Date HDL 55 01/20/2024 Lab Results Component Value Date LDLCALC 139 (H) 01/20/2024 Imaging/Testing: personally reviewed No components found for: LVEF, LVEFMODE Cosigned by Beck Santillan MD at 04/25/2024 3:03 PM EST [employer] Phone: [phone] Note* Op Note - Raffy Appiah DO - 04/25/2024 10:43 AM EST CARDIOTHORACIC SURGERY--OPERATIVE NOTE Date: 04/25/24 Preoperative diagnosis: Severe symptomatic aortic stenosis Chronic diastolic congestive heart failure Frailty Postoperative diagnosis: Severe symptomatic aortic stenosis Chronic diastolic congestive heart failure Frailty Surgeon: Jaskaran Appiah DO [employer]: Beck Santillan MD Linux Kernel Engineer: Obi Richards MD Procedure: Transcatheter aortic valve replacement with 29 mm MARIA ISABEL S3 valve Balloon aortic valvuloplasty Transthoracic echocardiogram Complications: None Anesthesia: Local with conscious sedation Indications for procedure: The patient is a 78 year-old male with severe, symptomatic aortic valve stenosis. The case was reviewed in the valve clinic in the valve conference and the patient was deemed a candidate for TAVR. Procedure in detail: The patient was positioned supine on the operating room table. The patient was prepped and draped in usual sterile fashion. Vascular access was gained in the right common femoral artery, right radialartery and right common femoral vein. Systemic heparin 100 mg/kg was given. Please refer to the cardiology dictation for placement of wires and sheaths. Temporary ventricular pacing wire was placed into the right ventricle using fluoroscopic guidance. After determination of the deployment angle theexpandable sheath was placed through the right femoral artery. The valve was crossed with a straight wire and exchanged for an Amplatz Extra Stiff wire. A 24 mm balloon was passed across the valve and inflated. The valve was introduced through the E sheath into the descending thoracic aorta where it was mounted on the balloon. This was then passed across the aortic arch and the aortic valve annulus. The valve was deployed under rapid ventricular pacing. It appeared to be well seated. Echocardiogram confirmed good position, mild paravalvular leak, and appropriate gradients. The valve was post-dilated with an extra milliliter of fluid which resolved the paravalvular leak to a trivial level. The deployment device was removed. Protamine was then given to reverse the systemic effects of heparin and the patient was subsequently decannulated and transferred stable to the recovery room. She tolerated the procedure well. Disposition: Stable to ICU Jaskaran Appiah DO [facility] Cardiothoracic Surgery [employer] Work Phone: [phone] Note* Op Note - Raffy Appiah DO - 04/25/2024 10:43 AM EST CARDIOTHORACIC SURGERY--OPERATIVE NOTE Date: 04/25/24 Preoperative diagnosis: Severe symptomatic aortic stenosis Chronic diastolic congestive heart failure Frailty Postoperative diagnosis: Severe symptomatic aortic stenosis Chronic diastolic congestive heart failure Frailty Surgeon: Jaskaran Appiah DO [employer]: Beck Santillan MD Linux Kernel Engineer: Obi Richards MD Procedure: Transcatheter aortic valve replacement with 29 mm MARIA ISABEL S3 valve Balloon aortic valvuloplasty Transthoracic echocardiogram Complications: None Anesthesia: Local with conscious sedation Indications for procedure: The patient is a 78 year-old male with severe, symptomatic aortic valve stenosis. The case was reviewed in the valve clinic in the valve conference and the patient was deemed a candidate for TAVR. Procedure in detail: The patient was positioned supine on the operating room table. The patient was prepped and draped in usual sterile fashion. Vascular access was gained in the right common femoral artery, right radialartery and right common femoral vein. Systemic heparin 100 mg/kg was given. Please refer to the cardiology dictation for placement of wires and sheaths. Temporary ventricular pacing wire was placed into the right ventricle using fluoroscopic guidance. After determination of the deployment angle theexpandable sheath was placed through the right femoral artery. The valve was crossed with a straight wire and exchanged for an Amplatz Extra Stiff wire. A 24 mm balloon was passed across the valve and inflated. The valve was introduced through the E sheath into the descending thoracic aorta where it was mounted on the balloon. This was then passed across the aortic arch and the aortic valve annulus. The valve was deployed under rapid ventricular pacing. It appeared to be well seated. Echocardiogram confirmed good position, mild paravalvular leak, and appropriate gradients. The valve was post-dilated with an extra milliliter of fluid which resolved the paravalvular leak to a trivial level. The deployment device was removed. Protamine was then given to reverse the systemic effects of heparin and the patient was subsequently decannulated and transferred stable to the recovery room. She tolerated the procedure well. Disposition: Stable to ICU . Eric Appiah DO [facility] Cardiothoracic Surgery [facility] [employer] Work Phone: [phone] NoteH&P reviewed. The patient was examined and there are no changes to the H&P.[facility]12-02-2024 History and physical note* Beck Santillan MD - 04/25/2024 10:43 AM EST H&P reviewed. The patient was examined and there are no changes to the H&P. Source Note - Jolene Resendiz APRN - TASHI - 04/20/2024 9:58 AM EST Images from the original note were not included. H+ P copied to chart from (office provider's name Dr. Justin Resendiz) progress note dated 04/12/24 on behalf of (procedural physician's name Dr. Santillan). Expand All Collapse All [facility] [address] [facility] [address] Dept: [phone] Dept Loc: [phone] Interventional Cardiology Office Note Visit type: Established patient Reason for Visit: Cardiac Valve Problem Assessment and Plan Hang Keenan is a very pleasant 78 y.o. male who presents for evaluation of his aortic stenosis. I personally reviewed his echocardiogram. He does have severe symptomatic aortic stenosis. He continues to have symptoms despite his PCI. We will plan to proceed with TAVR. The Transcatheter Aortic Valve Replacement (TAVR) procedure was explained in detail. The potential risks of the procedure including bleeding, vascular complications, stroke, myocardial infarction, arrhythmias, renal dysfunction, infection and were described. All of the patient's questions were answered. The patient expressed understanding of the procedure and the potential risks and wishes to proceed with TAVR at this time. 1. Aortic valve stenosis, etiology of cardiac valve disease unspecified - ECG 12 lead - CLINIC PERFORMED No follow-ups on file. It was a great pleasure seeing Hang Keenan in our office today. Please contact me with any questions. Justin Resendiz MD MPH, [facility], [facility] Chief, Ischemic Heart Disease Hvac R Instructor, Interventional Cardiology Fellowship Cobol Engineer Coronary, Structural, Peripheral Interventions Subjective Hang Keenan is a very pleasant 78 y.o. male with Aortic stenosis (peak/mean 50/31, aortic valve area 1, 1+ AI, ejection fraction 65%), coronary artery disease status post PCI to the LAD and diagonal in the setting of ACS, hypertension, hyperlipidemia, atrial fibrillation on anticoagulation, malignant thymoma, history of carotid dissection who presents for evaluation of his aortic stenosis. He had a recent non-STEMI in [place] and was found to have ostial diagonal disease. He was transferred to [facility] and his ostial diagonal was stented by Dr. Santillan. He was also found to have moderate to severe aortic stenosis. He felt better after his PCI but he continues to have worsening fatigue and some shortness of breath with exertion. He denies any lightheadedness or syncope. He is very active and wants to remain that way. Review of Systems Constitutional: Positive for fatigue. Negative for activity change, chills, diaphoresis and fever. HENT: Positive for hearing loss. Negative for nosebleeds and trouble swallowing. Eyes: Negative for discharge and visual disturbance. Respiratory: Negative for apnea, cough, chest tightness, shortness of breath and wheezing. Cardiovascular: Positive for chest pain. Negative for palpitations and leg swelling. Gastrointestinal: Negative for abdominal distention, abdominal pain, blood in stool, diarrhea, nausea and vomiting. Endocrine: Negative for cold intolerance and heat intolerance. Genitourinary: Negative for hematuria. Musculoskeletal: Negative for gait problem and myalgias. Skin: Negative for color change and rash. Neurological: Negative for dizziness, seizures, syncope, facial asymmetry, speech difficulty, weakness, light-headedness, numbness and headaches. Hematological: Does not bruise/bleed easily. Psychiatric/Behavioral: Negative for dysphoric mood. Allergies Allergies Allergen Reactions Cephalexin Pain in joints Levofloxacin achiness Lisinopril Didn't control bp well, labile Rosuvastatin Severe malagias Cefuroxime Rash Medications Prior to Visit Outpatient Medications Prior to Visit Medication Sig Dispense Refill acetaminophen (Tylenol) 500 MG tablet Take 1,000 mg by mouth 3 times daily as needed for mild pain (1-3). amiodarone (Pacerone) 100 MG tablet Take 100 mg by mouth daily. amLODIPine (Norvasc) 5 MG tablet Take 5 mg by mouth daily. carvedilol (Coreg) 12.5 MG tablet Take 12.5 mg by mouth in the morning and 12.5 mg in the evening. Take with meals. cholecalciferol (Vitamin D3) 25 MCG (1000 UT) tablet Take 1,000 Units by mouth daily. clopidogrel (Plavix) 75 MG tablet Take 1 tablet (75 mg) by mouth daily. 90 tablet 1 cyanocobalamin (Vitamin B-12) 1000 MCG tablet Take 1,000 mcg by mouth daily. finasteride (Proscar) 5 MG tablet Take 5 mg by mouth daily. Do not crush, chew, or split. levothyroxine (Synthroid, Levoxyl) 100 MCG tablet Take 100 mcg by mouth every morning (before breakfast). Multiple Vitamin (multivitamin) capsule Take 1 capsule by mouth daily. nitroglycerin (Nitrostat) 0.[address] 0.4 mg under the tongue every 5 minutes as needed for chest pain. warfarin (Coumadin) 5 MG tablet Take 5 mg by mouth daily. Take as directed per [facility] amLODIPine (Norvasc) 2.5 MG tablet Take 2.5 mg by mouth daily. atorvastatin (Lipitor) 80 MG tablet Take 1 tablet (80 mg) by mouth daily. 30 tablet 11 ketorolac (Acular) 0.5 % ophthalmic solution Administer 1 drop into both eyes in the morning and 1 drop at noon and 1 drop in the evening and 1 drop before bedtime. 5 mL 0 prednisoLONE acetate (Pred-Forte) 1 % ophthalmic suspension Administer 1 drop into both eyes in themorning and 1 drop at noon and 1 drop in the evening and 1 drop before bedtime. 15 mL 0 No facility-administered medications prior to visit. Medical History Past Medical History: Diagnosis Date Atelectasis BPH (benign prostatic hyperplasia) Carotid dissection, bilateral (CMS/HCC) ([facility]) Chest pain Hearing loss of left ear Hematuria Hyperlipidemia Hypothyroidism Malignant thymoma ([facility]) Nonrheumatic aortic (valve) stenosis Nonrheumatic mitral valve regurgitation SERGO (obstructive sleep apnea) Paroxysmal A-fib (CMS/HCC) ([facility]) Pericarditis SVT (supraventricular tachycardia) ([facility]) Surgical History Past Surgical History: Procedure Laterality Date CARDIAC CATHETERIZATION N/A 01/20/2024 Performed by Beck Santillan MD at [facility] Cardiac Cath/EP Lab CARDIAC CATHETERIZATION N/A 01/20/2024 Performed by Beck Santillan MD at [facility] Cardiac Cath/EP Lab Social History Tobacco Use Smoking status: Never Smokeless tobacco: Never Substance Use Topics Alcohol use: Not on file Family History No family history on file. Objective Vitals Vitals: 04/12/24 1236 BP: 124/82 BP Location: Left arm Patient Position: Sitting BP Cuff Size: Adult Pulse: 55 SpO2: 94% Weight: 154 lb 9.6 oz (70.1 kg) Height: 5' 4 (1.626 m) Body mass index is 26.54 kg/m . Physical Exam Constitutional: General: He is not in acute distress. Appearance: Normal appearance. He is not toxic-appearing. HENT: Head: Normocephalic and atraumatic. Nose: Nose normal. Mouth/Throat: Mouth: Mucous membranes are moist. Eyes: Pupils: Pupils are equal, round, and reactive to light. Neck: Vascular: Carotid bruit present. No JVD. Cardiovascular: Rate and Rhythm: Regular rhythm. Bradycardia present. Pulses: Dorsalis pedis pulses are 2+ on the right side and 2+ on the left side. Posterior tibial pulses are 2+ on the right side and 2+ on the left side. Heart sounds: Murmur heard. Crescendo systolic murmur is present with a grade of 3/6. Pulmonary: Effort: Pulmonary effort is normal. No respiratory distress. Breath sounds: Normal breath sounds. Abdominal: General: Abdomen is flat. Palpations: Abdomen is soft. Musculoskeletal: General: Normal range of motion. Cervical back: Normal range of motion and neck supple. Right lower leg: No edema. Left lower leg: No edema. Skin: General: Skin is warm and dry. Neurological: General: No focal deficit present. Mental Status: He is alert and oriented to person, place, and time. Psychiatric: Mood and Affect: Mood normal. Data Reviewed and Summarized Labs: personally reviewed Lab Results Component Value Date WBC 8.2 04/12/2024 HGB 15.8 04/12/2024 HCT 46.1 04/12/2024 MCV 90.9 04/12/2024 PLT 346 04/12/2024 Lab Results Component Value Date GLUCOSE 65 (L) 04/12/2024 CALCIUM 9.3 04/12/2024 NA 134 (L) 04/12/2024 K 4.3 04/12/2024 CO2 21 (L) 04/12/2024 CL 103 04/12/2024 BUN 19 04/12/2024 CREATININE 0.91 04/12/2024 @LASTCMP@ Lab Results Component Value Date CHOL 215 (H) 01/20/2024 Lab Results Component Value Date TRIG 107 01/20/2024 Lab Results Component Value Date HDL 55 01/20/2024 Lab Results Component Value Date LDLCALC 139 (H) 01/20/2024 Imaging/Testing: personally reviewed No components found for: LVEF, LVEFMODE Cosigned by Beck Santillan MD at 04/25/2024 3:03 PM EST documented in this [facility]11-27-2024 NoteBPCI 90 day outreach ADMIT DATE: 01/20/2024 DISCHARGE DATE: 01/21/2024 DISCHARGE DIAGNOSES: Principal Problem: Aortic stenosis, moderate Active Problems: Malignant thymoma (HCC) Paroxysmal atrial fibrillation (HCC) Chart reviewed for [facility] outreach. Phone call to patient, no answer, unable to leave message as mailbox is full. Ending Bundle program.[facility] 04-20-2024 Note Attestation signed by Beck Santillan MD at 04/25/2024 3:03 PM I, Dr. Santillan, saw and evaluated the patient. I personally obtained the pang and critical portions of the history and physical exam. I reviewed the chart and discussed the patient with the Nurse Practitioner. I agree with the Nurse Practitioner's medical decision making. I spoke with Hang Keenan this morning. he tells me that nothing has changed clinically since our last office visit. We will proceed with the planned procedure. H+ P copied to chart from (office provider's name Dr. Justin Resendiz) progress note dated 04/12/24 on behalf of (procedural physician's name Dr. Santillan). Expand All Collapse All [facility] [address] [facility] [address] Dept: [phone] Dept Loc: [phone] Interventional Cardiology Office Note Visit type: Established patient Reason for Visit: Cardiac Valve Problem Assessment and Plan Hang Keenan is a very pleasant 78 y.o. male who presents for evaluation of his aortic stenosis. I personally reviewed his echocardiogram. He does have severe symptomatic aortic stenosis. He continues to have symptoms despite his PCI. We will plan to proceed with TAVR. The Transcatheter Aortic Valve Replacement (TAVR) procedure was explained in detail. The potential risks of the procedure including bleeding, vascular complications, stroke, myocardial infarction, arrhythmias, renal dysfunction, infection and were described. All of the patient's questions were answered. The patient expressed understanding of the procedure and the potential risks and wishes to proceed with TAVR at this time. 1. Aortic valve stenosis, etiology of cardiac valve disease unspecified - ECG 12 lead - CLINIC PERFORMED No follow-ups on file. It was a great pleasure seeing Hang Keenan in our office today. Please contact me with any questions. Justin Resendiz MD MPH, [facility], [facility] Chief, Ischemic Heart Disease Hvac R Instructor, Interventional Cardiology Fellowship Cobol Engineer Coronary, Structural, Peripheral Interventions Subjective Hang Keenan is a very pleasant 78 y.o. male with Aortic stenosis (peak/mean 50/31, aortic valve area 1, 1+ AI, ejection fraction 65%), coronary artery disease status post PCI to the LAD and diagonal in the setting of ACS, hypertension, hyperlipidemia, atrial fibrillation on anticoagulation, malignant thymoma, history of carotid dissection who presents for evaluation of his aortic stenosis. He had a recent non-STEMI in [place] and was found to have ostial diagonal disease. He was transferred to [facility] and his ostial diagonal was stented by Dr. Santillan. He was also found to have moderate to severe aortic stenosis. He felt better after his PCI but he continues to have worsening fatigue and some shortness of breath with exertion. He denies any lightheadedness or syncope. He is very active and wants to remain that way. Review of Systems Constitutional: Positive for fatigue. Negative for activity change, chills, diaphoresis and fever. HENT: Positive for hearing loss. Negative for nosebleeds and trouble swallowing. Eyes: Negative for discharge and visual disturbance. Respiratory: Negative for apnea, cough, chest tightness, shortness of breath and wheezing. Cardiovascular: Positive for chest pain. Negative for palpitations and leg swelling. Gastrointestinal: Negative for abdominal distention, abdominal pain, blood in stool, diarrhea, nausea and vomiting. Endocrine: Negative for cold intolerance and heat intolerance. Genitourinary: Negative for hematuria. Musculoskeletal: Negative for gait problem and myalgias. Skin: Negative for color change and rash. Neurological: Negative for dizziness, seizures, syncope, facial asymmetry, speech difficulty, weakness, light-headedness, numbness and headaches. Hematological: Does not bruise/bleed easily. Psychiatric/Behavioral: Negative for dysphoric mood. Allergies Allergies Allergen Reactions Cephalexin Pain in joints Levofloxacin achiness Lisinopril Didn't control bp well, labile Rosuvastatin Severe malagias Cefuroxime Rash Medications Prior to Visit Outpatient Medications Prior to Visit Medication Sig Dispense Refill acetaminophen (Tylenol) 500 MG tablet Take 1,000 mg by mouth 3 times daily as needed for mild pain (1-3). amiodarone (Pacerone) 100 MG tablet Take 100 mg by mouth daily. amLODIPine (Norvasc) 5 MG tablet Take 5 mg by mouth daily. carvedilol (Coreg) 12.5 MG tablet Take 12.5 mg by mouth in the morning and 12.5 mg in the evening. Take with meals. cholecalciferol (Vitamin D3) 25 MCG (1000 UT) tablet Take 1,000 Units by mouth daily. clopidog (more content not included)...[facility]11-27-2024 Note Attestation signed by Beck Santillan MD at 04/25/2024 3:03 PM I, Dr. Santillan, saw and evaluated the patient. I personally obtained the pang and critical portions of the history and physical exam. I reviewed the chart and discussed the patient with the Nurse Practitioner. I agree with the Nurse Practitioner's medical decision making. I spoke with Hang Keenan this morning. he tells me that nothing has changed clinically since our last office visit. We will proceed with the planned procedure. H+ P copied to chart from (office provider's name Dr. Justin Resendiz) progress note dated 04/12/24 on behalf of (procedural physician's name Dr. Santillan). Expand All Collapse All [facility] [address] [facility] [address] Dept: [phone] Dept Loc: [phone] Interventional Cardiology Office Note Visit type: Established patient Reason for Visit: Cardiac Valve Problem Assessment and Plan Hang Keenan is a very pleasant 78 y.o. male who presents for evaluation of his aortic stenosis. I personally reviewed his echocardiogram. He does have severe symptomatic aortic stenosis. He continues to have symptoms despite his PCI. We will plan to proceed with TAVR. The Transcatheter Aortic Valve Replacement (TAVR) procedure was explained in detail. The potential risks of the procedure including bleeding, vascular complications, stroke, myocardial infarction, arrhythmias, renal dysfunction, infection and were described. All of the patient's questions were answered. The patient expressed understanding of the procedure and the potential risks and wishes to proceed with TAVR at this time. 1. Aortic valve stenosis, etiology of cardiac valve disease unspecified - ECG 12 lead - CLINIC PERFORMED No follow-ups on file. It was a great pleasure seeing Hang Keenan in our office today. Please contact me with any questions. Justin Resendiz MD MPH, [facility], [facility] Chief, Ischemic Heart Disease Hvac R Instructor, Interventional Cardiology Fellowship Cobol Engineer Coronary, Structural, Peripheral Interventions Subjective Hang Keenan is a very pleasant 78 y.o. male with Aortic stenosis (peak/mean 50/31, aortic valve area 1, 1+ AI, ejection fraction 65%), coronary artery disease status post PCI to the LAD and diagonal in the setting of ACS, hypertension, hyperlipidemia, atrial fibrillation on anticoagulation, malignant thymoma, history of carotid dissection who presents for evaluation of his aortic stenosis. He had a recent non-STEMI in [place] and was found to have ostial diagonal disease. He was transferred to [facility] and his ostial diagonal was stented by Dr. Santillan. He was also found to have moderate to severe aortic stenosis. He felt better after his PCI but he continues to have worsening fatigue and some shortness of breath with exertion. He denies any lightheadedness or syncope. He is very active and wants to remain that way. Review of Systems Constitutional: Positive for fatigue. Negative for activity change, chills, diaphoresis and fever. HENT: Positive for hearing loss. Negative for nosebleeds and trouble swallowing. Eyes: Negative for discharge and visual disturbance. Respiratory: Negative for apnea, cough, chest tightness, shortness of breath and wheezing. Cardiovascular: Positive for chest pain. Negative for palpitations and leg swelling. Gastrointestinal: Negative for abdominal distention, abdominal pain, blood in stool, diarrhea, nausea and vomiting. Endocrine: Negative for cold intolerance and heat intolerance. Genitourinary: Negative for hematuria. Musculoskeletal: Negative for gait problem and myalgias. Skin: Negative for color change and rash. Neurological: Negative for dizziness, seizures, syncope, facial asymmetry, speech difficulty, weakness, light-headedness, numbness and headaches. Hematological: Does not bruise/bleed easily. Psychiatric/Behavioral: Negative for dysphoric mood. Allergies Allergies Allergen Reactions Cephalexin Pain in joints Levofloxacin achiness Lisinopril Didn't control bp well, labile Rosuvastatin Severe malagias Cefuroxime Rash Medications Prior to Visit Outpatient Medications Prior to Visit Medication Sig Dispense Refill acetaminophen (Tylenol) 500 MG tablet Take 1,000 mg by mouth 3 times daily as needed for mild pain (1-3). amiodarone (Pacerone) 100 MG tablet Take 100 mg by mouth daily. amLODIPine (Norvasc) 5 MG tablet Take 5 mg by mouth daily. carvedilol (Coreg) 12.5 MG tablet Take 12.5 mg by mouth in the morning and 12.5 mg in the evening. Take with meals. cholecalciferol (Vitamin D3) 25 MCG (1000 UT) tablet Take 1,000 Units by mouth daily. clopidog (more content not included)...[facility]11-27-2024 NotePre TAVR phone call placed. Reviewed, procedure, instructions and meds. Pt verbalizes understanding. Pt knows to call [phone] with any concerns. Anthony Resendiz APRN notified for prep for proc orders. Diagnosis: Procedure being done: TAVR Date/time of procedure: 04/25/24 11 am Surgeon: Dr. Santillan 2nd surgeon: Dr. Appiah Admission type: To be admitted Anesthesia: MAC Completed: H&P/EKG/CBC/CMP/T&S/CXR Date completed: 04/12/24 Additional orders INR AM of [facility]11-22-2024 Note Patient: Hang Keenan Procedure Information Date/Time: 04/25/24 1100 Procedures: TRANSCATHETER AORTIC VALVE REPLACEMENT, TRANSTHORACIC ECHOCARDIOGRAM TRANSCATHETER AORTIC VALVE REPLACEMENT, TRANSTHORACIC ECHOCARDIOGRAM (Chest) Location: [facility] Operating Room Surgeons: Beck Santillan MD; Raffy Appiah, DO Relevant Problems Cardio (+) Aortic stenosis, moderate (+) Aortic stenosis, severe (+) Paroxysmal atrial fibrillation (HCC) Other (+) Malignant thymoma (HCC) Past Medical History: Past Medical History: No date: Atelectasis No date: BPH (benign prostatic hyperplasia) No date: Carotid dissection, bilateral (CMS/HCC) (HCC) No date: Chest pain No date: Hearing loss of left ear No date: Hematuria No date: Hyperlipidemia No date: Hypothyroidism No date: Malignant thymoma (HCC) No date: Nonrheumatic aortic (valve) stenosis No date: Nonrheumatic mitral valve regurgitation No date: SERGO (obstructive sleep apnea) No date: Paroxysmal A-fib (CMS/HCC) (HCC) No date: Pericarditis No date: SVT (supraventricular tachycardia) ([facility]) Past Surgical History: Past Surgical History: 01/20/2024: CARDIAC CATHETERIZATION; N/A Comment: Performed by Beck Santillan MD at [facility] Cardiac Cath/EP Lab 01/20/2024: CARDIAC CATHETERIZATION; N/A Comment: Performed by Beck Santillan MD at [facility] Cardiac Cath/EP Lab Social History: TOBACCO: reports that he has never smoked. He has never used smokeless tobacco. ETOH: has no history on file for alcohol use. Social History Substance and Sexual Activity Drug Use Not on file Family History: No family history on file. Screening: unknown Clinical information reviewed: Physical Exam Airway Mallampati: II TM distance: >3 FB Neck ROM: full Mouth Open: normalendotracheal tube not in place Cardiovascular Rhythm: regular Dental (+) Upper Partials Pulmonary Breath sounds clear to auscultation Abdominal Anesthesia Plan patient is NPO appropriate Any family history or previous problems with anesthesia no ASA 4 MAC Any family history or previous problems with anesthesia no The patient is not a current smoker. Patient was not previously instructed to abstain from smoking on day of procedure. Patient did not smoke on day of procedure. Anesthetic plan and risks discussed with patient and spouse. ERAS Type 04/15/24 Chart reviewed. DOS orders for anesthesia placed according to ERAS protocol. Tavr, no eras Tavr checklist complete Records in media Payton Long APRN - FACILITY MAINTENANCE WORKER SERGO Screening Labs: Lab Results Component Value Date WBC 8.2 04/12/2024 HGB 15.8 04/12/2024 HCT 46.1 04/12/2024 MCV 90.9 04/12/2024 PLT 346 04/12/2024 Lab Results Component Value Date NA 134 (L) 04/12/2024 K 4.3 04/12/2024 CL 103 04/12/2024 CO2 21 (L) 04/12/2024 BUN 19 04/12/2024 CREATININE 0.91 04/12/2024 GLUCOSE 65 (L) 04/12/2024 CALCIUM 9.3 04/12/2024 PROT 7.8 04/12/2024 ALKPHOS 86 04/12/2024 AST 38 04/12/2024 ALT 23 04/12/2024 EGFR 85.2 04/12/2024 No echocardiogram results found for the past 14 days 04/12/24 ECG 12-LEAD 04/12/2024 1:25 PM (Final) Narrative Sinus Bradycardia -With rate variation WITHIN NORMAL LIMITS Signed by: Justin Resendiz on 04/12/2024 1:25 PM Equipment Requests: Additional Equipment Requests Vascular Equipment: arterial line kit and 2nd IV Care [facility]11-20-2024 NoteTAVR procedure, instructions reviewed with pt, and daughter. Patient scheduled for TAVR on 04/25/2024 at 11 Will report to [facility] by 9 am Can park in the [facility] or use [employer] parking at the [facility] entrance Plan on overnight stay in the hospital Will not be able to drive for 1 week after procedure Will receive moderate sedation through the IV, will be relaxed but awake during the procedure Nothing to eat or drink after midnight Instructed to take morning medications including ASA/Plavix as prescribed with small sip of water EXCEPT to HOLD Warfarin 4 days prior to procedure, take last dose on 04/20/24. HOLD vitamins/supplements/ morning of surgery. Will call with any questions/concerns Pre-op testing done on 04/12/24 Patient/family verbalized understanding.[facility]11-20-2024 Note Heart Valve Clinic appointment yesterday. CTA/labs/CXR completed. Pt agrees to TAVR procedure w/ Dr. Santillan on 04/25/ @ 11. Case request Anthony lima CNP to sign. Anisha Briggs notified for snap board/calendars/Prior Auth. TAVR teach completed.[facility]11-19-2024 History of Present illness Narrative * Olimpia Thompson, - 04/12/2024 1:30 PM EST Images from the original note were not included. [facility] Group: Cardiothoracic Surgery Multidisciplinary Heart Valve Clinic Date: 04/12/24 Patient:Hang Keenan 1945 78 y.o. male [id number] Subjective: HPI: Hang Keenan 78 [address] Ortiz is being evaluated for aortic valve stenosis. Echocardiogram completed on 01/16/24 showed moderate aortic valve stenosis with peak/mean gradients 49/31 mm Hg, NADEGE 1.0 cm^2. Patient with history of aortic stenosis, has been followed by Dr. Ortiz for several years. Patients/p percutaneous revascularization of diagonal branch 01/18/24. During hospitalization a transthoracic echo was performed, showing LVEF 65%, mildly dilated LA, severe diffuse aortic valve calcification, moderate aortic valve stenosis with mild regurgitation. At office follow up patient reported an episode of chest discomfort, dyspnea on exertion, and on exam a grade 3/6 harsh murmur was noted. Medical History Past Medical History: Diagnosis Date Atelectasis BPH (benign prostatic hyperplasia) Carotid dissection, bilateral (CMS/HCC) ([facility]) Chest pain Hearing loss of left ear Hematuria Hyperlipidemia Hypothyroidism Malignant thymoma (HCC) Nonrheumatic aortic (valve) stenosis Nonrheumatic mitral valve regurgitation SERGO (obstructive sleep apnea) Paroxysmal A-fib (CMS/HCC) ([facility]) Pericarditis SVT (supraventricular tachycardia) ([facility]) Blood thinner - Plavix, warfarin Transthoracic Echocardiogram 01/16/24 Cardiac Cath 01/18/24 Review of Systems Constitutional: Positive for fatigue. Negative for activity change, chills, diaphoresis and fever. HENT: Negative for nosebleeds and trouble swallowing. Eyes: Negative for discharge and visual disturbance. Respiratory: Negative for apnea, cough, chest tightness, shortness of breath and wheezing. Cardiovascular: Positive for chest pain. Negative for palpitations and leg swelling. Gastrointestinal: Negative for abdominal distention, abdominal pain, blood in stool, diarrhea, nausea and vomiting. Endocrine: Negative for cold intolerance and heat intolerance. Genitourinary: Negative for hematuria. Musculoskeletal: Negative for gait problem and myalgias. Skin: Negative for color change and rash. Neurological: Negative for dizziness, seizures, syncope, facial asymmetry, speech difficulty, weakness, light-headedness, numbness and headaches. Hematological: Does not bruise/bleed easily. Psychiatric/Behavioral: Negative for dysphoric mood. Allergies: Cephalexin, Levofloxacin, Lisinopril, Rosuvastatin, and Cefuroxime Past Medical History: has a past medical history of Atelectasis, BPH (benign prostatic hyperplasia), Carotid dissection, bilateral (CMS/HCC) ([facility]), Chest pain, Hearing loss of left ear, Hematuria, Hyperlipidemia, Hypothyroidism, Malignant thymoma ([facility]), Nonrheumatic aortic (valve) stenosis, Nonrheumatic mitral valve regurgitation, SERGO (obstructive sleep apnea), Paroxysmal A-fib (CMS/HCC) ([facility]), Pericarditis, and SVT (supraventricular tachycardia) ([facility]). Past Surgical History: has a past surgical history that includes Cardiac catheterization (N/A, 01/20/2024) and Cardiac catheterization (N/A, 01/20/2024). Social History: reports that he has never smoked. He has never used smokeless tobacco. Family History: family history is not on file. Medications: Prior to Admission medications Medication Sig Start Date End Date Taking? Authorizing Provider acetaminophen (Tylenol) 500 MG tablet Take 1,000 mg by mouth 3 times daily as needed for mild pain (1-3). Yes Historical Provider, amiodarone (Pacerone) 100 MG tablet Take 100 mg by mouth daily. Yes Historical Provider, amLODIPine (Norvasc) 2.5 MG tablet Take 2.5 mg by mouth daily. Historical Provider, amLODIPine (Norvasc) 5 MG tablet Take 5 mg by mouth daily. 02/15/24 Yes Historical Provider, atorvastatin (Lipitor) 80 MG tablet Take 1 tablet (80 mg) by mouth daily. 01/22/24 01/21/25 Larry Paredes MD carvedilol (Coreg) 12.5 MG tablet Take 12.5 mg by mouth in the morning and 12.5 mg in the evening. Take with meals. Yes Historical Provider, cholecalciferol (Vitamin D3) 25 MCG (1000 UT) tablet Take 1,000 Units by mouth daily. Yes Historical Provider, clopidogrel (Plavix) 75 MG tablet Take 1 tablet (75 mg) by mouth daily. 01/21/24 Yes Larry Paredes MD cyanocobalamin (Vitamin B-12) 1000 MCG tablet Take 1,000 mcg by mouth daily. Yes Historical Provider, finasteride (Proscar) 5 MG tablet Take 5 mg by mouth daily. Do not crush, chew, or split. Yes Historical Provider, ketorolac (Acular) 0.5 % ophthalmic solution Administer 1 drop into both eyes in the morning and 1 drop at noon and 1 drop in the evening and 1 drop before bedtime. 01/21/24 Larry Paredes MD levothyroxine (Synthroid, Levoxyl) 100 MCG tablet Take 100 mcg by mouth every morning (before breakfast). Yes Historical Provider, Multiple Vitamin (multivitamin) capsule Take 1 capsule by mouth daily. Yes Historical Provider, nitroglycerin (Nitrostat) 0.[address] 0.4 mg under the tongue every 5 minutes as needed for chest pain. Yes Historical Provider, prednisoLONE acetate (Pred-Forte) 1 % ophthalmic suspension Administer 1 drop into both eyes in themorning and 1 drop at noon and 1 drop in the evening and 1 drop before bedtime. 01/21/24 Larry Paredes MD warfarin (Coumadin) 5 MG tablet Take 5 mg by mouth daily. Take as directed per [facility] Yes Historical Provider, Objective: BP 124/82 (BP Location: Left arm, Patient Position: Sitting, BP Cuff Size: Adult) Pulse 55 Ht 5' 4 (1.626 m) Wt 154 lb 8.7 oz (70.1 kg) SpO2 94% BMI 26.53 kg/m Physical Exam Vitals: BP 124/82 (BP Location: Left arm, Patient Position: Sitting, BP Cuff Size: Adult) Pulse 55 Ht 5' 4 (1.626 m) Wt 154 lb 8.7 oz (70.1 kg) SpO2 94% BMI 26.53 kg/m Constitutional: General: Not in acute distress. Appearance: Normal appearance. Not toxic-appearing. Ear, nose, mouth: Bilateral external ear and nose normal. Nose: Nose normal. Mouth: Appearance normal, no bleeding, moist mucus membranes Eyes: General: No scleral icterus. No discharge from bilateral eyes Extraocular Movements: Extraocular movements intact. Pupils equal and reactive bilaterally Cardiovascular: Heart: Regular rhythm. +murmur. Vascular: No carotid bruit. + radiation to bilateral carotids Edema: No edema in bilateral lower extremities Pulmonary: Effort: Pulmonary effort is normal. No respiratory distress. Breath sounds: Normal breath sounds. No wheezing. Chest wall: No tenderness. Abdominal: Appearance: Not distended Palpations: There is no abdominal tenderness, no guarding. Musculoskeletal: Bilateral upper and lower extremities: Normal range of motion, no deformity Head: Normocephalic and atraumatic. Neck: Normal range of motion and neck supple. No muscular tenderness. Lymphadenopathy: Cervical: No cervical adenopathy. Skin: General: Skin is warm and dry. Coloration: Skin is not jaundiced. Neurological: General: No focal deficit present. Cranial Nerves: No obvious cranial nerve deficit. Psychiatric: Mood and Affect: Mood normal. Thought Content: Thought content normal. Patient has good judgement and insight Mental Status: Alert and oriented to place, person, and time. Labs: Reviewed in EMR Lab Results Component Value Date WBC 8.2 04/12/2024 HGB 15.8 04/12/2024 HCT 46.1 04/12/2024 MCV 90.9 04/12/2024 PLT 346 04/12/2024 Lab Results Component Value Date NA 139 04/05/2024 K 3.7 04/05/2024 CL 109 (A) 04/05/2024 CO2 23 04/05/2024 BUN 18 04/05/2024 CREATININE 0.99 04/05/2024 GLUCOSE 127 (A) 04/05/2024 CALCIUM 8.9 04/05/2024 Diagnostics: Reviewed in EMR Assessment/Plan: Mr. Keenan is a pleasant 78 year old male who is seen with family today in valve clinic. They have known aortic stenosis which has progressed to severe and are now having increased symptoms. They would benefit both in quantity and quality of life with a valve replacement. The procedural details as well as risks, benefits and alteratives were discussed with them. They would not pursue if this required open heart surgery primarily but are interested in percutaneous options. This is very reasonable given their age, functional status and comorbidities. They are open to surgical salvage if the unlikely need arose. The patient and his families questions were answered to their satisfaction and they would like to proceed toward TAVR. Plan for discussion at multidisciplinary conference and TAVR inthe near future. Patient consents to surgical bailout: [x] Yes [] No If No why: ATTESTATION I personally performed the evaluation and management of Hang Keenan in the development of a treatment plan for this patient. I personally interviewed the patient and performed an individual physical examination. In addition, I discussed the patient's condition and treatment options with them. I have also reviewed and agree with the past medical, family and social history unless otherwise noted.All of the patient's questions were answered. I personally spent 60 minutes of time between the face to face encounter, physical exam, reviewing the medical history, coordinating the patient's care, counseling/educating the patient, ordering prescriptions/medications/tests/procedures, interpreting r esults and documenting clinical information in the patient's electronic health record on the day ofthe encounter. Electronically signed by Olimpia Thompson DO, MS, ALF Patient Care Team: BI Manzo as PCP - General (Family Medicine) Laina Montes RN as Registered Nurse (Ladies Underwear Operator Manager) Disclaimers: INFORMED CONSENT: The nature and purpose of the proposed treatment and/or procedure have been discussed. The risks and benefits of the proposed treatment or procedures have been reviewed. Alternatives have been reviewed in addition to the risks and benefits of not receiving treatments or undergoingprocedures. Pursuant to this discussion, the patient agrees to undergo the proposed treatment or procedure. Captured images seen in this note are not a substitute for a comprehensive interpretation of the entire data set as reflected by the interpreting physician with regard to radiology, echocardiography,and other diagnostic images. documented in this [facility]11-19-2024 History of Present illness Narrative* Justin Resendiz MD - 04/12/2024 1:00 PM EST Images from the original note were not included. [facility] [address] [facility] [address] Dept: [phone] Dept Loc: [phone] Interventional Cardiology Office Note Visit type: Established patient Reason for Visit: Cardiac Valve Problem Assessment and Plan Hang Keenan is a very pleasant 78 y.o. male who presents for evaluation of his aortic stenosis. I personally reviewed his echocardiogram. He does have severe symptomatic aortic stenosis. He continues to have symptoms despite his PCI. We will plan to proceed with TAVR. The Transcatheter Aortic Valve Replacement (TAVR) procedure was explained in detail. The potential risks of the procedure including bleeding, vascular complications, stroke, myocardial infarction, arrhythmias, renal dysfunction, infection and were described. All of the patient's questions were answered. The patient expressed understanding of the procedure and the potential risks and wishes to proceed with TAVR at this time. 1. Aortic valve stenosis, etiology of cardiac valve disease unspecified - ECG 12 lead - CLINIC PERFORMED No follow-ups on file. It was a great pleasure seeing Hang Keenan in our office today. Please contact me with any questions. Justin Resendiz MD MPH, [facility], [facility] Chief, Ischemic Heart Disease Hvac R Instructor, Interventional Cardiology Fellowship Cobol Engineer Coronary, Structural, Peripheral Interventions Subjective Hang Keenan is a very pleasant 78 y.o. male with Aortic stenosis (peak/mean 50/31, aortic valve area 1, 1+ AI, ejection fraction 65%), coronary artery disease status post PCI to the LAD and diagonal in the setting of ACS, hypertension, hyperlipidemia, atrial fibrillation on anticoagulation, malignant thymoma, history of carotid dissection who presents for evaluation of his aortic stenosis. He had a recent non-STEMI in [place] and was found to have ostial diagonal disease. He was transferred to [facility] and his ostial diagonal was stented by Dr. Santillan. He was also found to have moderate to severe aortic stenosis. He felt better after his PCI but he continues to have worsening fatigue and some shortness of breath with exertion. He denies any lightheadedness or syncope. He is very active and wants to remain that way. Review of Systems Constitutional: Positive for fatigue. Negative for activity change, chills, diaphoresis and fever. HENT: Positive for hearing loss. Negative for nosebleeds and trouble swallowing. Eyes: Negative for discharge and visual disturbance. Respiratory: Negative for apnea, cough, chest tightness, shortness of breath and wheezing. Cardiovascular: Positive for chest pain. Negative for palpitations and leg swelling. Gastrointestinal: Negative for abdominal distention, abdominal pain, blood in stool, diarrhea, nausea and vomiting. Endocrine: Negative for cold intolerance and heat intolerance. Genitourinary: Negative for hematuria. Musculoskeletal: Negative for gait problem and myalgias. Skin: Negative for color change and rash. Neurological: Negative for dizziness, seizures, syncope, facial asymmetry, speech difficulty, weakness, light-headedness, numbness and headaches. Hematological: Does not bruise/bleed easily. Psychiatric/Behavioral: Negative for dysphoric mood. Allergies Allergen Reactions Cephalexin Pain in joints Levofloxacin achiness Lisinopril Didn't control bp well, labile Rosuvastatin Severe malagias Cefuroxime Rash Outpatient Medications Prior to Visit Medication Sig Dispense Refill acetaminophen (Tylenol) 500 MG tablet Take 1,000 mg by mouth 3 times daily as needed for mild pain (1-3). amiodarone (Pacerone) 100 MG tablet Take 100 mg by mouth daily. amLODIPine (Norvasc) 5 MG tablet Take 5 mg by mouth daily. carvedilol (Coreg) 12.5 MG tablet Take 12.5 mg by mouth in the morning and 12.5 mg in the evening. Take with meals. cholecalciferol (Vitamin D3) 25 MCG (1000 UT) tablet Take 1,000 Units by mouth daily. clopidogrel (Plavix) 75 MG tablet Take 1 tablet (75 mg) by mouth daily. 90 tablet 1 cyanocobalamin (Vitamin B-12) 1000 MCG tablet Take 1,000 mcg by mouth daily. finasteride (Proscar) 5 MG tablet Take 5 mg by mouth daily. Do not crush, chew, or split. levothyroxine (Synthroid, Levoxyl) 100 MCG tablet Take 100 mcg by mouth every morning (before breakfast). Multiple Vitamin (multivitamin) capsule Take 1 capsule by mouth daily. nitroglycerin (Nitrostat) 0.[address] 0.4 mg under the tongue every 5 minutes as needed for chest pain. warfarin (Coumadin) 5 MG tablet Take 5 mg by mouth daily. Take as directed per [facility] amLODIPine (Norvasc) 2.5 MG tablet Take 2.5 mg by mouth daily. atorvastatin (Lipitor) 80 MG tablet Take 1 tablet (80 mg) by mouth daily. 30 tablet 11 ketorolac (Acular) 0.5 % ophthalmic solution Administer 1 drop into both eyes in the morning and 1 drop at noon and 1 drop in the evening and 1 drop before bedtime. 5 mL 0 prednisoLONE acetate (Pred-Forte) 1 % ophthalmic suspension Administer 1 drop into both eyes in themorning and 1 drop at noon and 1 drop in the evening and 1 drop before bedtime. 15 mL 0 No facility-administered medications prior to visit. Past Medical History: Diagnosis Date Atelectasis BPH (benign prostatic hyperplasia) Carotid dissection, bilateral (CMS/HCC) (HCC) Chest pain Hearing loss of left ear Hematuria Hyperlipidemia Hypothyroidism Malignant thymoma (HCC) Nonrheumatic aortic (valve) stenosis Nonrheumatic mitral valve regurgitation SERGO (obstructive sleep apnea) Paroxysmal A-fib (CMS/HCC) ([facility]) Pericarditis SVT (supraventricular tachycardia) ([facility]) Past Surgical History: Procedure Laterality Date CARDIAC CATHETERIZATION N/A 01/20/2024 Performed by Beck Santillan MD at [facility] Cardiac Cath/EP Lab CARDIAC CATHETERIZATION N/A 01/20/2024 Performed by Beck Santillan MD at [facility] Cardiac Cath/EP Lab Social History Tobacco Use Smoking status: Never Smokeless tobacco: Never Substance Use Topics Alcohol use: Not on file No family history on file. Objective Vitals: 04/12/24 1236 BP: 124/82 BP Location: Left arm Patient Position: Sitting BP Cuff Size: Adult Pulse: 55 SpO2: 94% Weight: 154 lb 9.6 oz (70.1 kg) Height: 5' 4 (1.626 m) Body mass index is 26.54 kg/m . Physical Exam Constitutional: General: He is not in acute distress. Appearance: Normal appearance. He is not toxic-appearing. HENT: Head: Normocephalic and atraumatic. Nose: Nose normal. Mouth/Throat: Mouth: Mucous membranes are moist. Eyes: Pupils: Pupils are equal, round, and reactive to light. Neck: Vascular: Carotid bruit present. No JVD. Cardiovascular: Rate and Rhythm: Regular rhythm. Bradycardia present. Pulses: Dorsalis pedis pulses are 2+ on the right side and 2+ on the left side. Posterior tibial pulses are 2+ on the right side and 2+ on the left side. Heart sounds: Murmur heard. Crescendo systolic murmur is present with a grade of 3/6. Pulmonary: Effort: Pulmonary effort is normal. No respiratory distress. Breath sounds: Normal breath sounds. Abdominal: General: Abdomen is flat. Palpations: Abdomen is soft. Musculoskeletal: General: Normal range of motion. Cervical back: Normal range of motion and neck supple. Right lower leg: No edema. Left lower leg: No edema. Skin: General: Skin is warm and dry. Neurological: General: No focal deficit present. Mental Status: He is alert and oriented to person, place, and time. Psychiatric: Mood and Affect: Mood normal. Data Reviewed and Summarized Labs: personally reviewed Lab Results Component Value Date WBC 8.2 04/12/2024 HGB 15.8 04/12/2024 HCT 46.1 04/12/2024 MCV 90.9 04/12/2024 PLT 346 04/12/2024 Lab Results Component Value Date GLUCOSE 65 (L) 04/12/2024 CALCIUM 9.3 04/12/2024 NA 134 (L) 04/12/2024 K 4.3 04/12/2024 CO2 21 (L) 04/12/2024 CL 103 04/12/2024 BUN 19 04/12/2024 CREATININE 0.91 04/12/2024 @LASTCMP@ Lab Results Component Value Date CHOL 215 (H) 01/20/2024 Lab Results Component Value Date TRIG 107 01/20/2024 Lab Results Component Value Date HDL 55 01/20/2024 Lab Results Component Value Date LDLCALC 139 (H) 01/20/2024 Imaging/Testing: personally reviewed No components found for: LVEF, LVEFMODE documented in this [facility]10-16-2024 History of Present illness Narrative* Laina Montes RN - 03/09/2024 11:12 AM EDT 03/09/24 1112 BPCI Late Drop? Program late drop? Yes [facility]PCI Outreach Assessment Selection Which outreach assessment are you completing? PRN [facility] - PRN Outreach Did patient answer phone call? No * Laina Montes RN - 03/09/2024 11:10 AM EDT [facility]PCI PRN call- Late Drop ADMIT DATE: 01/20/2024 DISCHARGE DATE: 01/21/2024 DISCHARGE DIAGNOSES: Principal Problem: Aortic stenosis, moderate Active Problems: Malignant thymoma (HCC) Paroxysmal atrial fibrillation (HCC) Chart reviewed for [facility] outreach. Phone call to patient, no answer, left VM to please return call. Will follow up for next [facility] outreach. Scheduled 60 day outreach (04/01). documented in this [facility]09-19-2024 History of Present illness Narrative* Laina Montes RN - 02/11/2024 2:20 PM EDT 02/11/24 1419 BPCI Late Drop? Program late drop? Yes [facility]PCI Outreach Assessment Selection Which outreach assessment are you completing? 21 Day BPCI - 21 Day Outreach Did patient answer phone call? No * Laina Montes RN - 02/11/2024 2:13 PM EDT [facility]PCI 21 day outreach-Late Drop ADMIT DATE: 01/20/2024 DISCHARGE DATE: 01/21/2024 DISCHARGE DIAGNOSES: Principal Problem: Aortic stenosis, moderate Active Problems: Malignant thymoma (HCC) Paroxysmal atrial fibrillation (HCC) Chart reviewed for [facility] outreach. Phone call to patient, no answer, left VM to please return call. Will follow up for next [facility] outreach. Left message on cell phone listed for the patient. Called the home number listed as well. [facility] documented in this [place] [id number] Nurse Note* Rebecca Tang LPN - 01/21/2024 1:38 PM EDT Discharge instructions reviewed with patient and family at bedside. No questions at this time. IV out and pt is off of monitor. Pt taken down to pharmacy to pickup medications then [facility]. [id number]* Rebecca Tang LPN - 01/21/2024 1:38 PM EDT Discharge instructions reviewed with patient and family at bedside. No questions at this time. IV out and pt is off of monitor. Pt taken down to pharmacy to pickup medications then discharge. documented in this [address]29-2024 Hospital course Narrative* Larry Paredes MD - 01/21/2024 12:54 PM EDT Discharge Summary Hang Keenan : 1945 ADMIT DATE: 01/20/2024 DISCHARGE DATE: 01/21/2024 PRIMARY CARE PHYSICIAN: Ankur Lovett VISIT STATUS: Admission CODE STATUS: Full Code DISCHARGE DIAGNOSES: Principal Problem: Aortic stenosis, moderate Active Problems: Malignant thymoma (HCC) Paroxysmal atrial fibrillation (HCC) HOSPITAL COURSE: Hang Keenan is a 78 y.o. male who presented with chest pain. He was found to have an NSTEMI, aortic stenosis, he did undergo a left heart catheterization which did reveal significant aortic stenosis as well as 50% occlusion of the mid LAD, and discrete 99% ostial lesion in the first diagonal branch. Status post CABG as well as stent in the obtuse marginal branch. Cardiology was consulted and patient underwent PCI to proximal DIAG with 2.5 mm JOSEFINA , via right radial pulse. Patient was started on Plavix and continued his warfarin. He was loaded with 600 mg before discharge. He has cardiac rehab scheduled and plans for further evaluation of aortic valve replacement outpatient. SIGNIFICANT DIAGNOSTIC STUDIES: 01/20/2024: [facility] Coronary Anatomy: Left main with no significant disease. LAD with patent mid segment stents, with mild luminal irregularities and 30 to 40% mid segment stenosis. The major diagonal branch is a medium caliber vessel with 95% stenosis at the origin, with otherwise mild diffuse disease. Circumflex with mild diffuse disease. RCA: Known to be patent without significant disease from prior angiogram. CONSULTANTS: Cardiology RECOMMENDED NEXT STEPS: Follow-up with cardiology regarding antibiotic placement -Continue warfarin and Plavix and discussed with PCP about switching warfarin to Eliquis Physical Exam Constitutional: Appearance: Normal appearance. He is not ill-appearing. HENT: Head: Normocephalic and atraumatic. Nose: Nose normal. Mouth/Throat: Mouth: Mucous membranes are moist. Eyes: Extraocular Movements: Extraocular movements intact. Pupils: Pupils are equal, round, and reactive to light. Cardiovascular: Rate and Rhythm: Normal rate and regular rhythm. Pulses: Normal pulses. Heart sounds: Murmur heard. Comments: Significant 3/6 systolic murmur appreciated Pulmonary: Effort: Pulmonary effort is normal. No respiratory distress. Breath sounds: Normal breath sounds. No wheezing or rhonchi. Abdominal: General: Abdomen is flat. Palpations: Abdomen is soft. Tenderness: There is no abdominal tenderness. Musculoskeletal: General: Normal range of motion. Cervical back: Normal range of motion and neck supple. Right lower leg: No edema. Left lower leg: No edema. Skin: General: Skin is warm and dry. Neurological: General: No focal deficit present. Mental Status: He is alert and oriented to person, place, and time. DISCHARGE MEDICATIONS: Medication List START taking these medications atorvastatin 80 MG tablet Commonly known as: Lipitor Take 1 tablet (80 mg) by mouth daily. Start taking on: January 22, 2024 ketorolac 0.5 % ophthalmic solution Commonly known as: Acular Administer 1 drop into both eyes in the morning and 1 drop at noon and 1 drop in the evening and 1 drop before bedtime. Replaces: ketorolac 0.4 % ophthalmic solution CONTINUE taking these medications acetaminophen 500 MG tablet Commonly known as: Tylenol amiodarone 100 MG tablet Commonly known as: Pacerone amLODIPine 2.5 MG tablet Commonly known as: Norvasc carvedilol 12.5 MG tablet Commonly known as: Coreg cholecalciferol 25 MCG (1000 UT) tablet Commonly known as: Vitamin D3 clopidogrel 75 MG tablet Commonly known as: Plavix Take 1 tablet (75 mg) by mouth daily. cyanocobalamin 1000 MCG tablet Commonly known as: Vitamin B-12 finasteride 5 MG tablet Commonly known as: Proscar levothyroxine 100 MCG tablet Commonly known as: Synthroid, Levoxyl multivitamin capsule nitroglycerin 0.4 MG SL tablet Commonly known as: Nitrostat prednisoLONE acetate 1 % ophthalmic suspension Commonly known as: Pred-Forte Administer 1 drop into both eyes in the morning and 1 drop at noon and 1 drop in the evening and 1 drop before bedtime. warfarin 5 MG tablet Commonly known as: Coumadin STOP taking these medications aspirin 81 MG EC tablet ketorolac 0.4 % ophthalmic solution Commonly known as: Acular Replaced by: ketorolac 0.5 % ophthalmic solution Where to Get Your Medications These medications were sent to [facility] [address] [place] [address] Hours: Thursday to Thursday 10 am to 6 pm atorvastatin 80 MG tablet clopidogrel 75 MG tablet ketorolac 0.5 % ophthalmic solution prednisoLONE acetate 1 % ophthalmic suspension DIET: Adult diet Regular; 4 carb choices (60 gm/meal); Low Fat/Low Chol/High Fiber/2 gm Na ACTIVITY: No heavy lifting. COMPLEXITY OF FOLLOW UP: [x] Moderate Complexity: follow up within 7-14 calendar days (01601) [] Severe Complexity: follow up within 7 calendar days (35714) FOLLOW UP TESTING, PENDING RESULTS OR REFERRALS AT TRANSITIONAL CARE VISIT: [] Yes [x] No PENDING STUDIES: None DISPOSITION: Home FACILITY/HOME CARE AGENCY NAME: Follow up with [facility] [address] [place] [address] ASHLEY Mccullough [address] [place] [address] Follow up on 02/01/2024 Appointment time: 9:30 am INSTRUCTIONS TO MA/SW: Please call patient on day after discharge (must document patient contacted within 2 business days of discharge). FOLLOW UP QUESTIONS FOR MA/SW: 1. Did you get medications filled and taking them as instructed from discharge? 2. Are you following your discharge instructions from your hospital stay? 3. Please confirm patient is scheduled for a follow up appointment within the above time frame. DISCHARGE TIME: > 30 minutes SIGNED: Larry Paredes MD 01/21/2024, 12:57 PM documented in this [facility]08-29-2024 Hospital Discharge instructions* Discharge Instructions* Nathaly Myrick APRN - FACILITY MAINTENANCE WORKER - 01/21/2024 11:29 AM EDT DISCHARGE INSTRUCTIONS PROCEDURE SITE Call your doctor with any medication questions or if you notice any side effects from your medications. If you are unable to fill your medications, please call your [employer] immediately. The office number is located with your follow-up appointment information. Call your doctor if any redness or drainage from the wound site. DO NOT stop taking your medication unless instructed to do so by your doctor. Read the drug information material that were given to you and take medications as instructed by your doctor. New drugs may have been added to your medications, that will strengthen your heart and prevent re-stenosis of the coronary arteries. Drink 6 glasses of water (8 ounces each) over the next 24 hours. Water helps clear the dye from your body. No alcoholic beverages for 24 hours. It may interfere with healing. No exercise or sex for 5 days. Call 911 for chest pain, arm pain, nausea, neck pain, dizziness or unusual sweating AND your pain has not relieved with 2 doses of Nitroglycerin. Call your doctor if a lump at the puncture site enlarges or is larger than marble size. Call your doctor for numbness, tingling, or swelling of the fingers, hand or wrist. Call your doctor for increased area or bruising with discoloration extending into the arm. If bleeding occurs, hold pressure with your thumb against the puncture site and your finger againstthe back of the wrist for 10 minutes, if BLEEDING continues CALL 911. OK to shower. No tub baths, swimming pools or hot tub soaking for three days. Wash site daily with soap and water, dry gently. The healing wound should remain soft and dry. Keepsite clean and dry, no soaking of wrist for three days (no cleaning or dish washing). Remove band aid the day after procedure and leave open to air. No bending of affected wrist for 24 hours. DO NOT lift more than three pounds for 3-5 days[address] driving for 24 hours. documented in this [facility]08-29-2024 History of Present illness Narrative* GABRIELA Rodgers CNP - 01/21/2024 7:47 AM EDT [facility] [place] [facility] Interventional Cardiology NAME: Hang Keenan DATE OF : 1945 CHIEF COMPLAINT NSTEMI ASSESSMENT AND PLAN NSTEMI/CAD s/p JOSEFINA to D1 01/20/24 He is stable without angina. Continue GDMT: atorvastatin, carvedilol, and warfarin. Patient currently on triple therapy will discontinue ASA, patient to be on DAPT of Plavix and warfarin for at leastone year. Brilinta discontinued. Plavix load 600 mg once before discharge, 75 mg daily sent to [facility]. From our standpoint he can be on apixaban, can defer to OP. Discussed cardiac rehab, patient is agreeable at this time. Lifestyle modification: Follow a Mediterranean (low fat/low cholesterol) diet. Exercise for 30 minutes a day 3 or more days a week. Weight loss. Avoid caffeine, alcohol and tobacco products. Reduce stress. Follow up arranged. He is okay for discharge from our standpoint. Addendum: Moderately severe aortic stenosis Continue to monitor. No TAVR at this time, if symptoms worse or AVS becomes worse can be further evaluated for candidacy. Hypertension Blood pressure is acceptable at this time. BP Goal <120/80. He was hypertensive yesterday, but after medications today his BP is better controlled. Could consider increasing his amlodipine to 5 mgdaily if he continues to be above goal. will monitor at home. Continue amlodipine and carvedilol. Recommend a DASH diet. Continue to monitor and report persistent HTN. Paroxysmal atrial fibrillation [id number] Score: 3 Asymptomatic. He is doing well on current therapy. His heart rate is regular and well-controlled atthis time. Rate control: carvedilol. Rhythm control: amiodarone. OAC: warfarin. Denies any hematochezia, hematuria, hemoptysis, epistaxis, or ecchymosis. Continue current therapy. Hyperlipidemia Last LDL 139 above recommended goal of <55 mg/dL per ESC guidelines. Last LFTs were stable. Continue high intensity atorvastatin. (Follow Mediterranean diet (low fat/low cholesterol). SUBJECTIVE Hang Keenan is an 78 y.o. male patient of Dr. Ortiz with past medical history of CAD s/p PCI LAD, OM, PAF on warfarin, moderate aortic stenosis, hyperlipidemia, carotid dissection 2016, BPH, malignant thymoma, hypothyroidism, SERGO. He previously was on triple therapy (ASA, Plavix, and coumadin) and developed hematuria. He presented to [facility] with worsening chest pain and palpitations for 3 days. He was found to be in A Fib with RVR, patient been off his amiodarone per provider. His troponin peaked at 0.548. He underwent LHC showed 99% lesion in his diagonal branch and significant aortic stenosis. The plan was to treat medically. Patient developed recurrent CP, so patient was sheriff sferred to [facility] for possible PCI. Yesterday patient underwent uncomplicated LHC right radial approach and received 1 JOSEFINA to D1, his aortic stenosis was considered moderate with Dr. Santillan. Today Patient he is up to the chair. He was tired this morning but is feeling better. He currently denies any chest pain/tightness, SOB, dizziness, or lightheadedness. Allergies Allergen Reactions Cephalexin Pain in joints Levofloxacin achiness Lisinopril Didn't control bp well, labile Rosuvastatin Severe malagias Cefuroxime Rash OBJECTIVE Vitals: 01/21/24 0324 01/21/24 0628 01/21/24 0730 01/21/24 1032 BP: 154/91 147/90 131/77 BP Location: Right arm Left arm Patient Position: Lying Sitting Pulse: 56 70 65 Resp: 18 12 20 Temp: 36.2 C (97.1 F) 36.1 C (97 F) 36.2 C (97.1 F) TempSrc: Temporal Temporal Temporal SpO2: 96% 94% 95% Weight: 148 lb 9.4 oz (67.4 kg) Height: Intake/Output Summary (Last 24 hours) at 01/21/2024 1225 Last data filed at 01/20/20242036 Gross per 24 hour Intake 550 ml Output 355 ml Net 195 ml Physical Exam Constitutional: General: He is not in acute distress. Appearance: Normal appearance. Neck: Vascular: No JVD. Cardiovascular: Rate and Rhythm: Normal rate and regular rhythm. Pulses: Normal pulses. Heart sounds: Murmur heard. Systolic murmur is present with a grade of 3/6. Comments: Right radial site is warm, dry, without pain, hematoma, bleeding, or ecchymosis. Site is covered with DSD. Sensation intact. Pulses palpable +2. Pulmonary: Effort: Pulmonary effort is normal. Breath sounds: Normal breath sounds. No rales. Skin: General: Skin is warm and dry. Neurological: Mental Status: He is alert and oriented to person, place, and time. Psychiatric: Mood and Affect: Mood normal. Speech: Speech normal. MEDICATIONS amiodarone, 100 mg, Oral, Daily amLODIPine, 2.5 mg, Oral, Daily atorvastatin, 80 mg, Oral, Daily carvedilol, 12.5 mg, Oral, BID WC cholecalciferol, 1,000 Units, Oral, Daily clopidogrel, 600 mg, Oral, Once And [START ON 01/22/2024] clopidogrel, 75 mg, Oral, Daily cyanocobalamin, 1,000 mcg, Oral, Daily finasteride, 5 mg, Oral, Daily ketorolac, 1 drop, Both Eyes, 4x daily levothyroxine, 100 mcg, Oral, qAM AC prednisoLONE acetate, 1 drop, Both Eyes, 4x daily sodium chloride 0.9%, 5-40 mL, IntraVENous, q12h therapeutic multivitamin-minerals, 1 tablet, Oral, Daily INFUSION MEDICATIONS LAB VALUES AND TESTING REVIEWED Recent Labs 01/20/24 0234 01/21/24 0005 NA 135 135 K 4.5 4.1 CL 104 106 CO2 25 22 BUN 27* 22* CREATININE 1.01 0.91 Recent Labs 01/20/24 0234 01/21/24 0005 WBC 8.6 10.0 HGB 14.9 15.4 HCT 45.5 45.5 MCV 91.7 87.3 PLT 303 346 Recent Labs 01/20/24 0234 01/20/24 0618 01/20/24 0912 TROPONINI 0.548* 0.513* 0.427* No results for input(s): BNP in the last 72 hours. Recent Labs 01/20/24233 TRIG 107 HDL 55 LDLCALC 139* CHOL 215* Lab Results Component Value Date LDLCALC 139 (H) 01/20/2024 [id number] Score for Atrial Fibrillation Stroke Risk Risk Factors C CHF No, 0 H HTN Yes, 1 A2 Age >= 75 Yes, 2 D DM No, 0 S2 Prior Stroke/TIA No, 0 V Vascular Disease No, 0 A Age 65-74 No, 0 Sc Sex Male, 0 [id number] Score 3 CARDIAC TESTS TELEMETRY FINDINGS: sinus arrhythmia with ventricular rate of 50-60 bpm, no ectopy EKG: Encounter Date: 01/20/24 ECG 12 lead Result Value Heart Rate 53 QRSD Interval 102 QT Interval 452 QTC Interval 426 P [place] 21 QRS [place] -13 T Wave [place] -22 AL Interval 173 Impression Sinus bradycardia Left ventricular hypertrophy Abnormal T, consider ischemia, diffuse leads Electronically Signed On 01-21-2024 09:39:52 EDT by Jamari Leon Tracing reviewed HEART CATH: 01/20/24 CARDIAC PROCEDURE (Preliminary) This result has not been signed. Information might be incomplete. Conclusion Background: This is a very pleasant 78 y.o. M who presented to an OSH with chest pain and elevated troponin. Diagnosed with NSTEMI. Underwent LHC that showed 99% stenosis of the ostial major diagonal branch. He was transferred to [facility] for further management. He is here for PCI of the major diagonal branch of the LAD. Okay to schedule Findings: Coronary Anatomy: Left main with no significant disease. LAD with patent mid segment stents, with mild luminal irregularities and 30 to 40% mid segment stenosis. The major diagonal branch is a medium caliber vessel with 95% stenosis at the origin, with otherwise mild diffuse disease. Circumflex with mild diffuse disease. RCA: Known to be patent without significant disease from prior angiogram. Hemodynamics: Not performed. Intervention: Major diagonal branch Revascularization: Patient was anticoagulated with IV heparin with therapeutic ACT maintained. Patient was loaded withBrilinta 180 mg crushed PO. The left main coronary artery was cannulated with a 6 [place] EBU 3.5 guide catheter. A whisper guidewire was advanced across the ostial stenosis of the major diagonal branch through the LAD stent struts. Then, IVUS catheter was advanced but could not cross the stent struts. So, predilation using a 1.2 x 20 mm mini trek balloon was performed through the stent struts. Then, further dilation using a 2.5 x 15 mm trek balloon was performed. Then, IVUS catheter was advanced but still could not be passed through the stent struts. So, a guide liner was used for more support. Then, another whisper wire was advanced through the distal LAD. Then, further angioplasty was performed using a 2.5 x 8 mm [place] trek balloon through the stent struts. Then, the ostial to proximal segment of the major diagonal branch was stented using a 2.5 x 18 mm Xience JOSEFINA. The stent was then crushed at the ostium using a 3.0 x 20 mm trek balloon. Then, the balloons were removed. The whisper guidewire was repositioned from the LAD to the major diagonal branch and the whisper wire that was in the diagonal was repositioned to the LAD. Then, simultaneous kissing balloon angioplasty was performed using a 3.0 x 20 mm trek balloon in the LAD and a 2.5 x 15 mm trek balloon in the diagonal. IVUS imaging of the proximal to mid LAD was performed and showed no edge dissection. Follow- up angiography showed excellent results, with 0% residual stenosis and NATHALIE-3 flow. Impression -Successful DRUG ELUTING STENT placed to the 95% lesion of the major diagonal branch with minimal residual stenosis., With simultaneous kissing balloon angioplasty (mini crush) using a 3.0 x 20 mm aswell as a 2.5 x 15 mm balloons in the LAD and the major diagonal branch respectively. -Pre and post IVUS used to appropriately size stent Recommendations: - Dual antiplatelet therapy for minimum 12 months. Aspirin 81mg daily, lifelong. - Continued aggressive risk factor modification and medical therapy GABRIELA Rodgers CNP DATE OF SERVICE: 01/21/2024 * GABRIELA Mitchell CNP - 01/20/2024 3:56 PM EDT Images from the original note were not included. S/P PCI to proximal DIAG with 2.5 mm JOSEFINA , via right radial pulse. He has some mild pressure in hischest. BP has been running high since procedure. Coreg was held by pit hand due bradycardia. Give at 2:15 pm. Vitals: 01/20/24 1547 BP: (!) 181/94 Pulse: 64 Resp: 20 Temp: SpO2: Will given an extra dose of norvasc 2.5 mg once now. No bleeding at radial site, but tender. INR this am was 1.1. He developed hematuria with his prior stents, when on Triple therapy. He has always been on Warfarin, He has had recent bouts of Afib, nowplaced back on amiodarone. 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 Addendum: BP improved. 01/20/2024 3:45 PM 01/20/2024 3:47 PM 01/20/2024 4:00 PM 01/20/2024 4:15 PM 01/20/2024 4:30 PM 01/20/2024 4:45 PM 01/20/2024 5:00 PM Vitals Systolic 181 162 138 166 147 139 Diastolic 94 96 80 96 90 78 Heart Rate 61 64 71 72 71 73 67 Resp 18 20 18 18 15 22 24 SpO2 92 % 93 % Hopefully will be able to send home in am. * Charlotte Pickard MD - 01/20/2024 8:30 AM EDT Hang Keenan is a 78 y.o. male presenting with chest pain approximately 3 days ago to [facility] . He was admitted due to concern for NSTEMI and underwent angiogram that showed significant aortic stenosis. Interventional cardiology consulted for aortic stenosis and obstructive CAD. Patient waiting for PCI. Troponins downtrending patient on heparin drip. family at bedside all questions answered please review H&P for more details documented in this encounterSACMC Healthcare [id number] Plan of care note* Care Plan - Vivian Castaneda RN - 01/20/2024 8:38 PM EDT Problem: Discharge Planning Goal: Discharge to home or other facility with appropriate resources Outcome: Progressing [id number] Miscellaneous Notes* Care Plan - Vivian Castaneda RN - 01/20/2024 8:38 PM EDT Problem: Discharge Planning Goal: Discharge to home or other facility with appropriate resources Outcome: Progressing * Post-Procedure Note - Lorena Daley MD - 01/20/2024 1:15 PM EDT [facility] Cardiac Catheterization Laboratory Post-Procedure Note Patient Name: Hang Keenan Date: 01/20/2024, 2:15 PM Pre-Operative Diagnosis: NSTEMI Post-Operative Diagnosis: Same Procedure: - PCI of the major Diagonal branch. - Mini Crush technique, with kissing balloon angioplasty Complications: None Plan: - DAPT for one year. Optimize GDMT as tolerated Physician Signature: Lorena Daley MD * Care Coordination - Kaila Jiménez RN - 01/20/2024 10:45 AM EDT Care Managment Initial Assessment Date: 01/20/2024 Patient Name: Hang Keenan : 1945 Patient Information Source of Information: Patient Cognition/Language: WFL - Within Functional Limits Permission given to speak with patient field representative/health education/caregiver as indicated: Yes Confirmation of Payer with patient/family: Yes Payer Name: Medicare/[employer] [place]: Confirmation of Primary Care Physician: Confirmed PCP Name: BI Manzo Seen in last 2 years?: Yes Primary Caregiver: Self If assistance needed, confirmed caregiver ready, willing and able to care for patient at discharge: Confirmed with: Living Arrangements Current Residence: House Number of Floors 3 Number of Entry Steps: 1 Bed/Bath Levels: Both first floor Facility: Facility Name: Plan to Return: Yes Lives with: Spouse/significant other Support Systems: Spouse/significant other, Family members, Friends/neighbors Activities of Daily Living Ambulation: Independent Bathing/Dressing: Independent Elimination/Continence/Toileting: Independent Feeding: Independent Who Assists with Activities of Daily Living: Instrumental Activities of Daily Living Prescription Coverage: Yes Pharmacy Used: [id number] - [place], [place] - [address] Medication Management: Medication dispenser Who assists with medication securing and setup?: Transportation/Shopping: Independent Transportation Mode: Car Needs Assistance with Transportation at Discharge: No Meal Preparation: Independent Laundry/Cleaning: Independent Finances/Bill Paying: Independent Communication: Independent Types of Care Services/Equipment Utilized Care Services: Dialysis Type: Durable Medical Equipment: Cane, Walker (grab bars in shower) Patient's Goal/Discharge Plan Patient expects to be discharged to: Home with Discharge Planning Actions: Continue to follow, No needs identified Patient's Choice Rights and [employer] and Collaborative Relationships Disclosed as Indicated for Post-Acute Care: Interdisciplinary Team Engagement: Social Work Referral for: Additional Information: Chart reviewed. Patient admitted to for aortic stenosis 01/20/2024. Consults to IP CONSULT TO CARDIAC REHAB IP CONSULT TO CARDIOLOGY Initial Assessment: Spoke with patient, Trina (sp), and friends at bedside. Introduced myself and role. IA completed. Patient personal information confirmed. Patient from home with spouse, independent in ADLs and iADLs, works ([employer]) and drives. Patient has insurance, prescription coverage, and active with PCP. Discussed discharge planning. Patient denies needs/questions/concerns regarding discharge planning at this time. Patient has transportation home. Discharge Planning/Barrier: RHC/PCI today. Work up for TAVR. Discharge Plan: Home with spouse. Awaiting clinical stability and medical clearance. Will continue to follow. Kaila Jiménez RN * Care Plan - Maria Del Carmen Cruz RN - 01/20/2024 1:23 AM EDT Problem: Pain - Adult Goal: Verbalizes/displays adequate comfort level or baseline comfort level Outcome: Progressing Problem: Safety - Adult Goal: Free from fall injury Outcome: Progressing Problem: Discharge Planning Goal: Discharge to home or other facility with appropriate resources Outcome: Progressing Problem: Chronic Conditions and Co-morbidities Goal: Patient's chronic conditions and co-morbidity symptoms are monitored and maintained or improved Outcome: Progressing documented in this encounterSACMC Healthcare [id number] Consult note* Alexandra Cash - 01/20/2024 3:03 PM EDTAssociated Order(s): IP CONSULT TO CARDIAC REHAB; IP CONSULT TO CARDIAC REHAB; IP CONSULT TO CARDIAC REHAB Received referral and reviewed chart. Unable to discuss Phase II Cardiopulmonary Rehab Referral with Hang Keenan at this time. Will follow to discuss program when appropriate. Patient will be contacted at home if discharged prior to discussion. Received referral and reviewed chart. Unable to discuss Phase II Cardiopulmonary Rehab Referral with Hang Keenan at this time. Willfollow to discuss program when appropriate. Patient will be contacted at home if discharged prior to discussion. [id number] Consult note* Alexandra Cash - 01/20/2024 3:03 PM EDT Associated Order(s): IP CONSULT TO CARDIAC REHAB; IP CONSULT TO CARDIAC REHAB; IP CONSULT TO CARDIAC REHAB Received referral and reviewed chart. Unable to discuss Phase II Cardiopulmonary Rehab Referral with Hang Keenan at this time. Will follow to discuss program when appropriate. Patient will be contacted at home if discharged prior to discussion. Received referral and reviewed chart. Unable to discuss Phase II Cardiopulmonary Rehab Referral with Hang Keenan at this time. Willfollow to discuss program when appropriate. Patient will be contacted at home if discharged prior to discussion. * Lorena Daley MD - 01/20/2024 9:47 AM EDTAssociated Order(s): IP CONSULT TO CARDIOLOGY [facility] Interventional Cardiology Consultation Note Today's Date: 01/20/2024, 10:47 AM Patient Name: Hang Keenan Date of admission: 01/20/2024 12:57 AM Patient's age: 78 y.o., 1945 Admission Dx: Aortic stenosis, moderate [I35.0] Primary Care Physician:BI Manzo Referring Physician: Wesley La MD History Obtained From: patient, Chief Complaint: Chest pain and SOB History of Present Illness: The patient is a 78 y.o. gentleman with history of CAD s/p PCI of the LAD, hypertension, hyperlipidemia, hypothyroidism, aortic stenosis, paroxysmal atrial fibrillation. He presented to [facility] 3 days ago with worsening chest pain and palpitations. He was diagnosed with NSTEMI and underwent a coronary angiogram with [facility] that showed 99% ostial major diagonal branch stenosis. [facility] also showed significant aortic stenosis. Interventional cardiology consulted for aortic stenosis and obstructive CAD. On my evaluation, he was not in acute distress. Has been hemodynamically stable. Satting well on room air. He reports feeling well at the moment. He denied any chest pain, shortness of breath, dizziness, lightheadedness, presyncope or syncopal episodes. He reports chest discomfort with ambulation. He denied dyspnea on exertion at baseline but reports feeling little tired in the last few weeks. He is known to have aortic stenosis and has been monitoring progression with his change control specialist. Labs notable for a troponin I level of 0.5, flat. ROS: Negative. Past Medical History: has a past medical history of Atelectasis, BPH (benign prostatic hyperplasia), Carotid dissection, bilateral (CMS/HCC) ([facility]), Chest pain, Hearing loss of left ear, Hematuria, Hyperlipidemia, Hypothyroidism, Malignant thymoma ([facility]), Nonrheumatic aortic (valve) stenosis, Nonrheumatic mitral valve regurgitation, SERGO (obstructive sleep apnea), Paroxysmal A-fib (CMS/HCC) ([facility]), Pericarditis, and SVT (supraventricular tachycardia) ([facility]). Past Surgical History: has no past surgical history on file. Allergies: Cephalexin, Levofloxacin, Lisinopril, Rosuvastatin, and Cefuroxime Medications: Home Medications: Prior to Admission medications Medication Sig Start Date End Date Taking? Authorizing Provider acetaminophen (Tylenol) 500 MG tablet Take 1,000 mg by mouth 3 times daily as needed for mild pain (1-3). Historical ProviderMD amiodarone (Pacerone) 100 MG tablet Take 100 mg by mouth daily. Historical Provider, amLODIPine (Norvasc) 2.5 MG tablet Take 2.5 mg by mouth daily. Historical ProviderMD aspirin 81 MG EC tablet Take 81 mg by mouth daily. Historical ProviderMD carvedilol (Coreg) 12.5 MG tablet Take 12.5 mg by mouth in the morning and 12.5 mg in the evening. Take with meals. Historical ProviderMD cholecalciferol (Vitamin D3) 25 MCG (1000 UT) tablet Take 1,000 Units by mouth daily. Historical ProviderMD clopidogrel (Plavix) 75 MG tablet Take 75 mg by mouth daily. Historical ProviderMD cyanocobalamin (Vitamin B-12) 1000 MCG tablet Take 1,000 mcg by mouth daily. Historical ProviderMD finasteride (Proscar) 5 MG tablet Take 5 mg by mouth daily. Do not crush, chew, or split. Historical ProviderMD ketorolac (Acular) 0.4 % ophthalmic solution Administer 1 drop into both eyes in the morning and 1 drop at noon and 1 drop in the evening and 1 drop before bedtime. Historical ProviderMD levothyroxine (Synthroid, Levoxyl) 100 MCG tablet Take 100 mcg by mouth every morning (before breakfast). Historical Provider, Multiple Vitamin (multivitamin) capsule Take 1 capsule by mouth daily. Historical Provider, nitroglycerin (Nitrostat) 0.[address] 0.4 mg under the tongue every 5 minutes as needed for chest pain. Historical Provider, prednisoLONE acetate (Pred-Forte) 1 % ophthalmic suspension Administer 1 drop into both eyes in themorning and 1 drop at noon and 1 drop in the evening and 1 drop before bedtime. Historical Provider, warfarin (Coumadin) 5 MG tablet Take 5 mg by mouth four times a week. Take as directed per After Visit Summary. Thursday, , Thursday, Thursday Historical Provider, Current Medications: amiodarone, 100 mg, Oral, Daily amLODIPine, 2.5 mg, Oral, Daily aspirin, 81 mg, Oral, Daily atorvastatin, 80 mg, Oral, Daily carvedilol, 12.5 mg, Oral, BID WC cholecalciferol, 1,000 Units, Oral, Daily cyanocobalamin, 1,000 mcg, Oral, Daily finasteride, 5 mg, Oral, Daily ketorolac, 1 drop, Both Eyes, 4x daily levothyroxine, 100 mcg, Oral, qAM AC prednisoLONE acetate, 1 drop, Both Eyes, 4x daily sodium chloride 0.9%, 5-40 mL, IntraVENous, q12h therapeutic multivitamin-minerals, 1 tablet, Oral, Daily Infusions: heparin, 5-30 Units/kg/hr, Last Rate: 13 Units/kg/hr (01/20/24 1000) Social History: reports that he has never smoked. He has never used smokeless tobacco. Family History: family history is not on file. Review of Systems: Review of Systems All other systems reviewed and are negative. Physical Examination: VITAL SIGNS: Vitals: 01/20/24 0055 01/20/24 0226 01/20/24 0253 01/20/24 0740 BP: 148/81 110/69 129/68 BP Location: Right arm Right arm Patient Position: Lying Pulse: 54 55 52 Resp: 12 14 20 Temp: 36.1 C (97 F) (!) 35.9 C (96.6 F) 36 C (96.8 F) TempSrc: Temporal Temporal Temporal SpO2: 94% 97% 93% Weight: 154 lb 15.7 oz (70.3 kg) Height: 5' 4 (1.626 m) Telemetry: Sinus bradycardia. No intake or output data in the 24 hours ending 01/20/24 1047 Wt Readings from Last 3 Encounters: 01/20/24 154 lb 15.7 oz (70.3 kg) 0 Physical Exam Constitutional: General: He is not in acute distress. Appearance: He is not diaphoretic. HENT: Head: Normocephalic. Nose: Nose normal. Mouth/Throat: Mouth: Mucous membranes are moist. Pharynx: No oropharyngeal exudate. Eyes: General: No scleral icterus. Right eye: No discharge. Left eye: No discharge. Neck: Thyroid: No thyromegaly. Vascular: No carotid bruit or JVD. Cardiovascular: Rate and Rhythm: Normal rate and regular rhythm. Pulses: Normal pulses. Heart sounds: Murmur heard. Comments: 4/6 ejection systolic murmur, late peaking in the right upper sternal border Pulmonary: Effort: Pulmonary effort is normal. Breath sounds: Normal breath sounds. Abdominal: General: Bowel sounds are normal. There is no distension. Palpations: There is no hepatomegaly. Tenderness: There is no abdominal tenderness. Musculoskeletal: General: Normal range of motion. Cervical back: Normal range of motion. Right lower leg: No edema. Left lower leg: No edema. Skin: General: Skin is warm and dry. Neurological: Mental Status: He is oriented to person, place, and time. Psychiatric: Mood and Affect: Mood normal. Behavior: Behavior normal. Data: CBC: Recent Labs 01/20/24 0234 WBC 8.6 HGB 14.9 HCT 45.5 MCV 91.7 PLT 303 BMP: Recent Labs 01/20/24 0234 NA 135 K 4.5 CL 104 CO2 25 BUN 27* CREATININE 1.01 EGFR 75.2 Biomarkers: Recent Labs 01/20/24 0234 01/20/24 0618 01/20/24 0912 TROPONINI 0.548* 0.513* 0.427* PRO-BNP: No results for input(s): BNP in the last 72 hours. ABGs: No results found for: PHART, PO2ART, [id number] PT/INR: Recent Labs 01/20/24 233 INR 1.1 APTT: Recent Labs 01/20/24 0234 01/20/24 09 APTT 27.3 43.0* TSH: No results found for: TSH FASTING LIPID PANEL: Lab Results Component Value Date CHOL 215 (H) 01/20/2024 Lab Results Component Value Date HDL 55 01/20/2024 Lab Results Component Value Date LDLCALC 139 (H) 01/20/2024 Lab Results Component Value Date TRIG 107 01/20/2024 No results found for: CHOLHDL LIVER PROFILE: Results from last 7 days Lab Units 01/20/24 023 AST U/L 31 ALT U/L 17 Hemoglobin A1C: No results found for: HGBA1C Iron: No results found for: IRON, TIBC, FERRITIN Radiology: @RISRSLT@ CXR: No orders to display Last EKG No results found for this or any previous visit. REPORTS REVIEWED: Last Echo No results found for this or any previous visit. Last Cath No results found for this or any previous visit. Last Stress Test No results found for this or any previous visit. Last EP study No results found for this or any previous visit. No results found for: EFBP, PLVEF, LVEFPHYS, LVEF2D, EF Problem List: Principal Problem: Aortic stenosis, moderate ASSESSMENT & PLAN: Non-ST elevation myocardial infarction Severe aortic stenosis History of CAD s/p PCI of the LAD Hypertension Hyperlipidemia Impression An 78-year-old gentleman with past medical history as above. Presenting with NSTEMI and worsening aortic stenosis. Plan Will plan for PCI of the major diagonal branch today. Will continue workup for his severe aortic stenosis and potential TAVR procedure. Rest of care per primary team. Thank you for consulting interventional cardiology. Associated attestation - Beck Santillan MD - 01/20/2024 9:31 PM EDT I, Dr. Santillan, saw and evaluated the patient on 01/20/2024 I personally obtained the pang and critical portions of the history and physical exam. I reviewed the chart and discussed the patient with the fellow. I agree with the fellow's medical decision making. History: Pt with history of CAD s/p remote PCI. Admitted to [facility] with NSTEMI. Cath showed severely diseased D1 branch and echo showed severe aortic stenosis. Transferred here to consider PCI to D1and to be evaluated for possible TAVR. Assessment/Plan: Plan for PCI today to D1 branch. If symptoms improve, will consider outpatient work up for possibleaortic valve replacement. documented in this encounterSACMC Healthcare [id number] Note* Post-Procedure Note - Lorena Daley MD - 01/20/2024 1:15 PM EDT [facility] Cardiac Catheterization Laboratory Post-Procedure Note Patient Name: Hang Keenan Date: 01/20/2024, 2:15 PM Pre-Operative Diagnosis: NSTEMI Post-Operative Diagnosis: Same Procedure: - PCI of the major Diagonal branch. - Mini Crush technique, with kissing balloon angioplasty Complications: None Plan: - DAPT for one year. Optimize GDMT as tolerated Physician Signature: Lorena Daley MD [place] [id number] Note* Post-Procedure Note - Lorena Daley MD - 01/20/2024 1:15 PM EDT [facility] Cardiac Catheterization Laboratory Post-Procedure Note Patient Name: Hang Keenan Date: 01/20/2024, 2:15 PM Pre-Operative Diagnosis: NSTEMI Post-Operative Diagnosis: Same Procedure: - PCI of the major Diagonal branch. - Mini Crush technique, with kissing balloon angioplasty Complications: None Plan: - DAPT for one year. Optimize GDMT as tolerated Physician Signature: Lorena Daley MD [id number] Note* Care Coordination - Kaila Jiménez RN - 01/20/2024 10:45 AM EDT Care Managment Initial Assessment Date: 01/20/2024 Patient Name: Hang Keenan : 1945 Patient Information Source of Information: Patient Cognition/Language: WFL - Within Functional Limits Permission given to speak with patient field representative/health education/caregiver as indicated: Yes Confirmation of Payer with patient/family: Yes Payer Name: Medicare/Hum[employer] : Confirmation of Primary Care Physician: Confirmed PCP Name: BI Manzo Seen in last 2 years?: Yes Primary Caregiver: Self If assistance needed, confirmed caregiver ready, willing and able to care for patient at discharge: Confirmed with: Living Arrangements Current Residence: House Number of Floors 3 Number of Entry Steps: 1 Bed/Bath Levels: Both first floor Facility: Facility Name: Plan to Return: Yes Lives with: Spouse/significant other Support Systems: Spouse/significant other, Family members, Friends/neighbors Activities of Daily Living Ambulation: Independent Bathing/Dressing: Independent Elimination/Continence/Toileting: Independent Feeding: Independent Who Assists with Activities of Daily Living: Instrumental Activities of Daily Living Prescription Coverage: Yes Pharmacy Used: [id number] - [place], [place] - [address] Medication Management: Medication dispenser Who assists with medication securing and setup?: Transportation/Shopping: Independent Transportation Mode: Car Needs Assistance with Transportation at Discharge: No Meal Preparation: Independent Laundry/Cleaning: Independent Finances/Bill Paying: Independent Communication: Independent Types of Care Services/Equipment Utilized Care Services: Dialysis Type: Durable Medical Equipment: Cane, Walker (grab bars in shower) Patient's Goal/Discharge Plan Patient expects to be discharged to: Home with Discharge Planning Actions: Continue to follow, No needs identified Patient's Choice Rights and [employer] and Collaborative Relationships Disclosed as Indicated for Post-Acute Care: Interdisciplinary Team Engagement: Social Work Referral for: Additional Information: Chart reviewed. Patient admitted to for aortic stenosis 01/20/2024. Consults to IP CONSULT TO CARDIAC REHAB IP CONSULT TO CARDIOLOGY Initial Assessment: Spoke with patient, Trina (babar), and friends at bedside. Introduced myself and role. IA completed. Patient personal information confirmed. Patient from home with spouse, independent in ADLs and iADLs, works ([employer]) and drives. Patient has insurance, prescription coverage, and active with PCP. Discussed discharge planning. Patient denies needs/questions/concerns regarding discharge planning at this time. Patient has transportation home. Discharge Planning/Barrier: RHC/PCI today. Work up for TAVR. Discharge Plan: Home with spouse. Awaiting clinical stability and medical clearance. Will continue to follow. Kaila Jiménez RN [facility] [id number] Note* Care Coordination - Kaila Jiménez RN - 01/20/2024 10:45 AM EDT Care Managment Initial Assessment Date: 01/20/2024 Patient Name: Hang Keenan : 1945 Patient Information Source of Information: Patient Cognition/Language: WFL - Within Functional Limits Permission given to speak with patient field representative/health education/caregiver as indicated: Yes Confirmation of Payer with patient/family: Yes Payer Name: Medicare/Hum[employer] : Confirmation of Primary Care Physician: Confirmed PCP Name: BI Manzo Seen in last 2 years?: Yes Primary Caregiver: Self If assistance needed, confirmed caregiver ready, willing and able to care for patient at discharge: Confirmed with: Living Arrangements Current Residence: House Number of Floors 3 Number of Entry Steps: 1 Bed/Bath Levels: Both first floor Facility: Facility Name: Plan to Return: Yes Lives with: Spouse/significant other Support Systems: Spouse/significant other, Family members, Friends/neighbors Activities of Daily Living Ambulation: Independent Bathing/Dressing: Independent Elimination/Continence/Toileting: Independent Feeding: Independent Who Assists with Activities of Daily Living: Instrumental Activities of Daily Living Prescription Coverage: Yes Pharmacy Used: [id number] - [place], [place] - [address] Medication Management: Medication dispenser Who assists with medication securing and setup?: Transportation/Shopping: Independent Transportation Mode: Car Needs Assistance with Transportation at Discharge: No Meal Preparation: Independent Laundry/Cleaning: Independent Finances/Bill Paying: Independent Communication: Independent Types of Care Services/Equipment Utilized Care Services: Dialysis Type: Durable Medical Equipment: Cane, Walker (grab bars in shower) Patient's Goal/Discharge Plan Patient expects to be discharged to: Home with Discharge Planning Actions: Continue to follow, No needs identified Patient's Choice Rights and [employer] and Collaborative Relationships Disclosed as Indicated for Post-Acute Care: Interdisciplinary Team Engagement: Social Work Referral for: Additional Information: Chart reviewed. Patient admitted to for aortic stenosis 01/20/2024. Consults to IP CONSULT TO CARDIAC REHAB IP CONSULT TO CARDIOLOGY Initial Assessment: Spoke with patient, Trina (sp), and friends at bedside. Introduced myself and role. IA completed. Patient personal information confirmed. Patient from home with spouse, independent in ADLs and iADLs, works ([employer]) and drives. Patient has insurance, prescription coverage, and active with PCP. Discussed discharge planning. Patient denies needs/questions/concerns regarding discharge planning at this time. Patient has transportation home. Discharge Planning/Barrier: RHC/PCI today. Work up for TAVR. Discharge Plan: Home with spouse. Awaiting clinical stability and medical clearance. Will continue to follow. Kaila Jiménez RN [facility] [id number] Consult note* Lorena Daley MD - 01/20/2024 9:47 AM EDTAssociated Order(s): IP CONSULT TO CARDIOLOGY [facility] Interventional Cardiology Consultation Note Today's Date: 01/20/2024, 10:47 AM Patient Name: Hang Keenan Date of admission: 01/20/2024 12:57 AM Patient's age: 78 y.o., 1945 Admission Dx: Aortic stenosis, moderate [I35.0] Primary Care Physician:BI Manzo Referring Physician: Wesley La MD History Obtained From: patient, Chief Complaint: Chest pain and SOB History of Present Illness: The patient is a 78 y.o. gentleman with history of CAD s/p PCI of the LAD, hypertension, hyperlipidemia, hypothyroidism, aortic stenosis, paroxysmal atrial fibrillation. He presented to [facility] 3 days ago with worsening chest pain and palpitations. He was diagnosed with NSTEMI and underwent a coronary angiogram with [facility] that showed 99% ostial major diagonal branch stenosis. [facility] also showed significant aortic stenosis. Interventional cardiology consulted for aortic stenosis and obstructive CAD. On my evaluation, he was not in acute distress. Has been hemodynamically stable. Satting well on room air. He reports feeling well at the moment. He denied any chest pain, shortness of breath, dizziness, lightheadedness, presyncope or syncopal episodes. He reports chest discomfort with ambulation. He denied dyspnea on exertion at baseline but reports feeling little tired in the last few weeks. He is known to have aortic stenosis and has been monitoring progression with his change control specialist. Labs notable for a troponin I level of 0.5, flat. ROS: Negative. Past Medical History: has a past medical history of Atelectasis, BPH (benign prostatic hyperplasia), Carotid dissection, bilateral (CMS/HCC) ([facility]), Chest pain, Hearing loss of left ear, Hematuria, Hyperlipidemia, Hypothyroidism, Malignant thymoma ([facility]), Nonrheumatic aortic (valve) stenosis, Nonrheumatic mitral valve regurgitation, SERGO (obstructive sleep apnea), Paroxysmal A-fib (CMS/HCC) ([facility]), Pericarditis, and SVT (supraventricular tachycardia) ([facility]). Past Surgical History: has no past surgical history on file. Allergies: Cephalexin, Levofloxacin, Lisinopril, Rosuvastatin, and Cefuroxime Medications: Home Medications: Prior to Admission medications Medication Sig Start Date End Date Taking? Authorizing Provider acetaminophen (Tylenol) 500 MG tablet Take 1,000 mg by mouth 3 times daily as needed for mild pain (1-3). Historical Provider, amiodarone (Pacerone) 100 MG tablet Take 100 mg by mouth daily. Historical Provider, amLODIPine (Norvasc) 2.5 MG tablet Take 2.5 mg by mouth daily. Historical Provider, aspirin 81 MG EC tablet Take 81 mg by mouth daily. Historical Provider, carvedilol (Coreg) 12.5 MG tablet Take 12.5 mg by mouth in the morning and 12.5 mg in the evening. Take with meals. Historical Provider, cholecalciferol (Vitamin D3) 25 MCG (1000 UT) tablet Take 1,000 Units by mouth daily. Historical Provider, clopidogrel (Plavix) 75 MG tablet Take 75 mg by mouth daily. Historical ProviderMD cyanocobalamin (Vitamin B-12) 1000 MCG tablet Take 1,000 mcg by mouth daily. Historical ProviderMD finasteride (Proscar) 5 MG tablet Take 5 mg by mouth daily. Do not crush, chew, or split. Historical ProviderMD ketorolac (Acular) 0.4 % ophthalmic solution Administer 1 drop into both eyes in the morning and 1 drop at noon and 1 drop in the evening and 1 drop before bedtime. Historical ProviderMD levothyroxine (Synthroid, Levoxyl) 100 MCG tablet Take 100 mcg by mouth every morning (before breakfast). Historical Provider, Multiple Vitamin (multivitamin) capsule Take 1 capsule by mouth daily. Historical ProviderMD nitroglycerin (Nitrostat) 0.[address] 0.4 mg under the tongue every 5 minutes as needed for chest pain. Historical Provider, prednisoLONE acetate (Pred-Forte) 1 % ophthalmic suspension Administer 1 drop into both eyes in themorning and 1 drop at noon and 1 drop in the evening and 1 drop before bedtime. Historical Provider, warfarin (Coumadin) 5 MG tablet Take 5 mg by mouth four times a week. Take as directed per After Visit Summary. Thursday, , Thursday, Thursday Historical ProviderMD Current Medications: amiodarone, 100 mg, Oral, Daily amLODIPine, 2.5 mg, Oral, Daily aspirin, 81 mg, Oral, Daily atorvastatin, 80 mg, Oral, Daily carvedilol, 12.5 mg, Oral, BID WC cholecalciferol, 1,000 Units, Oral, Daily cyanocobalamin, 1,000 mcg, Oral, Daily finasteride, 5 mg, Oral, Daily ketorolac, 1 drop, Both Eyes, 4x daily levothyroxine, 100 mcg, Oral, qAM AC prednisoLONE acetate, 1 drop, Both Eyes, 4x daily sodium chloride 0.9%, 5-40 mL, IntraVENous, q12h therapeutic multivitamin-minerals, 1 tablet, Oral, Daily Infusions: heparin, 5-30 Units/kg/hr, Last Rate: 13 Units/kg/hr (01/20/24 1000) Social History: reports that he has never smoked. He has never used smokeless tobacco. Family History: family history is not on file. Review of Systems: Review of Systems All other systems reviewed and are negative. Physical Examination: VITAL SIGNS: Vitals: 01/20/24 0055 01/20/24 0226 01/20/24 0253 01/20/24 0740 BP: 148/81 110/69 129/68 BP Location: Right arm Right arm Patient Position: Lying Pulse: 54 55 52 Resp: 12 14 20 Temp: 36.1 C (97 F) (!) 35.9 C (96.6 F) 36 C (96.8 F) TempSrc: Temporal Temporal Temporal SpO2: 94% 97% 93% Weight: 154 lb 15.7 oz (70.3 kg) Height: 5' 4 (1.626 m) Telemetry: Sinus bradycardia. No intake or output data in the 24 hours ending 01/20/24 1047 Wt Readings from Last 3 Encounters: 01/20/24 154 lb 15.7 oz (70.3 kg) 0 Physical Exam Constitutional: General: He is not in acute distress. Appearance: He is not diaphoretic. HENT: Head: Normocephalic. Nose: Nose normal. Mouth/Throat: Mouth: Mucous membranes are moist. Pharynx: No oropharyngeal exudate. Eyes: General: No scleral icterus. Right eye: No discharge. Left eye: No discharge. Neck: Thyroid: No thyromegaly. Vascular: No carotid bruit or JVD. Cardiovascular: Rate and Rhythm: Normal rate and regular rhythm. Pulses: Normal pulses. Heart sounds: Murmur heard. Comments: 4/6 ejection systolic murmur, late peaking in the right upper sternal border Pulmonary: Effort: Pulmonary effort is normal. Breath sounds: Normal breath sounds. Abdominal: General: Bowel sounds are normal. There is no distension. Palpations: There is no hepatomegaly. Tenderness: There is no abdominal tenderness. Musculoskeletal: General: Normal range of motion. Cervical back: Normal range of motion. Right lower leg: No edema. Left lower leg: No edema. Skin: General: Skin is warm and dry. Neurological: Mental Status: He is oriented to person, place, and time. Psychiatric: Mood and Affect: Mood normal. Behavior: Behavior normal. Data: CBC: Recent Labs 01/20/24 0234 WBC 8.6 HGB 14.9 HCT 45.5 MCV 91.7 PLT 303 BMP: Recent Labs 01/20/24233 NA 135 K 4.5 CL 104 CO2 25 BUN 27* CREATININE 1.01 EGFR 75.2 Biomarkers: Recent Labs 01/20/2423301/20/24 0618 01/20/24 0912 TROPONINI 0.548* 0.513* 0.427* PRO-BNP: No results for input(s): BNP in the last 72 hours. ABGs: No results found for: PHART, PO2ART, [id number] PT/INR: Recent Labs 01/20/24233 INR 1.1 APTT: Recent Labs 01/20/2423301/20/24911 APTT 27.3 43.0* TSH: No results found for: TSH FASTING LIPID PANEL: Lab Results Component Value Date CHOL 215 (H) 01/20/2024 Lab Results Component Value Date HDL 55 01/20/2024 Lab Results Component Value Date LDLCALC 139 (H) 01/20/2024 Lab Results Component Value Date TRIG 107 01/20/2024 No results found for: CHOLHDL LIVER PROFILE: Results from last 7 days Lab Units 01/20/24233 AST U/L 31 ALT U/L 17 Hemoglobin A1C: No results found for: HGBA1C Iron: No results found for: IRON, TIBC, FERRITIN Radiology: @RISRSLT@ CXR: No orders to display Last EKG No results found for this or any previous visit. REPORTS REVIEWED: Last Echo No results found for this or any previous visit. Last Cath No results found for this or any previous visit. Last Stress Test No results found for this or any previous visit. Last EP study No results found for this or any previous visit. No results found for: EFBP, PLVEF, LVEFPHYS, LVEF2D, EF Problem List: Principal Problem: Aortic stenosis, moderate ASSESSMENT & PLAN: Non-ST elevation myocardial infarction Severe aortic stenosis History of CAD s/p PCI of the LAD Hypertension Hyperlipidemia Impression An 78-year-old gentleman with past medical history as above. Presenting with NSTEMI and worsening aortic stenosis. Plan Will plan for PCI of the major diagonal branch today. Will continue workup for his severe aortic stenosis and potential TAVR procedure. Rest of care per primary team. Thank you for consulting interventional cardiology. Associated attestation - Beck Santillan MD - 01/20/2024 9:31 PM EDT I, Dr. Santillan, saw and evaluated the patient on 01/20/2024 I personally obtained the pang and critical portions of the history and physical exam. I reviewed the chart and discussed the patient with the fellow. I agree with the fellow's medical decision making. History: Pt with history of CAD s/p remote PCI. Admitted to [facility] with NSTEMI. Cath showed severely diseased D1 branch and echo showed severe aortic stenosis. Transferred here to consider PCI to D1and to be evaluated for possible TAVR. Assessment/Plan: Plan for PCI today to D1 branch. If symptoms improve, will consider outpatient work up for possibleaortic valve replacement. Inktd Phone: [phone] 646-742208-28-2024 History and physical note* Wesley La MD - 01/20/2024 1:54 AM EDT History Of Present Illness Hang Keenan is a 78 y.o. male presenting with chest pain approximately 3 days ago to [facility]. He was found to have an NSTEMI, aortic stenosis, he did undergo a left heart catheterization which did reveal significant aortic stenosis as well as 50% occlusion of the mid LAD, and discrete 99% ostial lesion in the first diagonal branch. Status post CABG as well as stent in the obtuse marginal branch. Currently is being admitted for further evaluation and follow-up. Past Medical History He has no past medical history on file. CABG by history, coronary artery disease 70% distal mid LAD 99% ostial lesion in the first diagonalbranch status post stent placement in the obtuse marginal artery which is now patent. Recent NSTEMI, BPH, aortic stenosis, right inguinal hernia, BPH, kidney stones, malignant thymoma, hyperlipidemia, carotid dissection bilateral 04/08/2016, SERGO, paroxysmal atrial fibrillation, hypothyroidism, hematuria by history. Surgical History He has no past surgical history on file. See above Social History He reports that he has never smoked. He has never used smokeless tobacco. No history on file for alcohol use and drug use. Allergies Patient has no allergy information on record. Medications Medications Prior to Admission Medication Sig Dispense Refill Last Dose acetaminophen (Tylenol) 500 MG tablet Take 1,000 mg by mouth 3 times daily as needed for mild pain (1-3). amiodarone (Pacerone) 100 MG tablet Take 100 mg by mouth daily. amLODIPine (Norvasc) 2.5 MG tablet Take 2.5 mg by mouth daily. aspirin 81 MG EC tablet Take 81 mg by mouth daily. carvedilol (Coreg) 12.5 MG tablet Take 12.5 mg by mouth in the morning and 12.5 mg in the evening. Take with meals. cholecalciferol (Vitamin D3) 25 MCG (1000 UT) tablet Take 1,000 Units by mouth daily. cyanocobalamin (Vitamin B-12) 1000 MCG tablet Take 1,000 mcg by mouth daily. finasteride (Proscar) 5 MG tablet Take 5 mg by mouth daily. Do not crush, chew, or split. ketorolac (Acular) 0.4 % ophthalmic solution Administer 1 drop into both eyes in the morning and 1 drop at noon and 1 drop in the evening and 1 drop before bedtime. levothyroxine (Synthroid, Levoxyl) 100 MCG tablet Take 100 mcg by mouth every morning (before breakfast). Multiple Vitamin (multivitamin) capsule Take 1 capsule by mouth daily. nitroglycerin (Nitrostat) 0.[address] 0.4 mg under the tongue every 5 minutes as needed for chest pain. prednisoLONE acetate (Pred-Forte) 1 % ophthalmic suspension Administer 1 drop into both eyes in themorning and 1 drop at noon and 1 drop in the evening and 1 drop before bedtime. warfarin (Coumadin) 5 MG tablet Take 5 mg by mouth four times a week. Take as directed per After Visit Summary. Thursday, , Thursday, Thursday Review of Systems Physical Exam General Appearance is that of an elderly gentleman in no acute distress alert and oriented x 3 at the time of examination head was normal maxillary sinuses and periorbital sinuses appear to be clear pharynx is nonerythematous neck was supple there was no JVD HJR or lymphadenopathy no evidence of organomegaly. Lungs reveal diminished breath sounds bilaterally. Heart rate regular S1/S2 there was a loud systolic ejection murmur grade 5/6 in the right second intercostal space radiating to the right side of the neck. Also a holosystolic murmur at the base radiating to the apex. There was an S4. Abdomen soft and nontender with normal bowel sounds in all quadrants there is no subxiphoid, right midepigastric, or right upper quadrant tenderness to palpation lower abdominal examination was otherwise unremarkable. Range of motion of both upper and lower extremities appeared to be symmetrical and there were no lateralizing signs skin is otherwise warm and dry to touch. There was no evidence of peripheral edema cyanosis or clubbing. Peripheral pulses were intact in both the upper and lower extremities bilaterally there were no ecchymoses or petechial lesions noted in either the upper or the lower extremitiesbilaterally. Last Recorded Vitals Blood pressure 148/81, pulse 54, temperature 36.1 C (97 F), temperature source Temporal, resp. rate12, SpO2 94%. Relevant Results Transthoracic echocardiogram done on 01/16/2024: Left atrium mildly enlarged, moderate mitral annular calcification and +1 MR, severe diffuse aortic valve calcification moderate aortic valve stenosis with mild regurgitation no pericardial effusion pulmonic valve is not well visualized moderate concentric LVH, LVEF: 65%. Assessment/Plan Active Problems: There are no active Hospital Problems. Impression/plan: 1. NSTEMI recently, left heart catheterization recently done reveals severe diffuse aortic valve calcification with aortic valve stenosis and mild mitral regurgitation. 99% ostial occlusion of the first diagonal branch. He may be a candidate for TAVR as well as possible stent placement in the firstdiagonal branch. 2. Labile hypertension 3. Hypothyroidism. 4. BPH by history. 5. SERGO. 6. 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 I will continue outpatient medications cardiology consultation pending. [facility] [id number] History and physical note* Wesley La MD - 01/20/2024 1:54 AM EDT History Of Present Illness Hang Keenan is a 78 y.o. male presenting with chest pain approximately 3 days ago to [facility]. He was found to have an NSTEMI, aortic stenosis, he did undergo a left heart catheterization which did reveal significant aortic stenosis as well as 50% occlusion of the mid LAD, and discrete 99% ostial lesion in the first diagonal branch. Status post CABG as well as stent in the obtuse marginal branch. Currently is being admitted for further evaluation and follow-up. Past Medical History He has no past medical history on file. CABG by history, coronary artery disease 70% distal mid LAD 99% ostial lesion in the first diagonalbranch status post stent placement in the obtuse marginal artery which is now patent. Recent NSTEMI, BPH, aortic stenosis, right inguinal hernia, BPH, kidney stones, malignant thymoma, hyperlipidemia, carotid dissection bilateral 04/08/2016, SERGO, paroxysmal atrial fibrillation, hypothyroidism, hematuria by history. Surgical History He has no past surgical history on file. See above Social History He reports that he has never smoked. He has never used smokeless tobacco. No history on file for alcohol use and drug use. Allergies Patient has no allergy information on record. Medications Medications Prior to Admission Medication Sig Dispense Refill Last Dose acetaminophen (Tylenol) 500 MG tablet Take 1,000 mg by mouth 3 times daily as needed for mild pain (1-3). amiodarone (Pacerone) 100 MG tablet Take 100 mg by mouth daily. amLODIPine (Norvasc) 2.5 MG tablet Take 2.5 mg by mouth daily. aspirin 81 MG EC tablet Take 81 mg by mouth daily. carvedilol (Coreg) 12.5 MG tablet Take 12.5 mg by mouth in the morning and 12.5 mg in the evening. Take with meals. cholecalciferol (Vitamin D3) 25 MCG (1000 UT) tablet Take 1,000 Units by mouth daily. cyanocobalamin (Vitamin B-12) 1000 MCG tablet Take 1,000 mcg by mouth daily. finasteride (Proscar) 5 MG tablet Take 5 mg by mouth daily. Do not crush, chew, or split. ketorolac (Acular) 0.4 % ophthalmic solution Administer 1 drop into both eyes in the morning and 1 drop at noon and 1 drop in the evening and 1 drop before bedtime. levothyroxine (Synthroid, Levoxyl) 100 MCG tablet Take 100 mcg by mouth every morning (before breakfast). Multiple Vitamin (multivitamin) capsule Take 1 capsule by mouth daily. nitroglycerin (Nitrostat) 0.[address] 0.4 mg under the tongue every 5 minutes as needed for chest pain. prednisoLONE acetate (Pred-Forte) 1 % ophthalmic suspension Administer 1 drop into both eyes in themorning and 1 drop at noon and 1 drop in the evening and 1 drop before bedtime. warfarin (Coumadin) 5 MG tablet Take 5 mg by mouth four times a week. Take as directed per After Visit Summary. Thursday, , Thursday, Thursday Review of Systems Physical Exam General Appearance is that of an elderly gentleman in no acute distress alert and oriented x 3 at the time of examination head was normal maxillary sinuses and periorbital sinuses appear to be clear pharynx is nonerythematous neck was supple there was no JVD HJR or lymphadenopathy no evidence of organomegaly. Lungs reveal diminished breath sounds bilaterally. Heart rate regular S1/S2 there was a loud systolic ejection murmur grade 5/6 in the right second intercostal space radiating to the right side of the neck. Also a holosystolic murmur at the base radiating to the apex. There was an S4. Abdomen soft and nontender with normal bowel sounds in all quadrants there is no subxiphoid, right midepigastric, or right upper quadrant tenderness to palpation lower abdominal examination was otherwise unremarkable. Range of motion of both upper and lower extremities appeared to be symmetrical and there were no lateralizing signs skin is otherwise warm and dry to touch. There was no evidence of peripheral edema cyanosis or clubbing. Peripheral pulses were intact in both the upper and lower extremities bilaterally there were no ecchymoses or petechial lesions noted in either the upper or the lower extremitiesbilaterally. Last Recorded Vitals Blood pressure 148/81, pulse 54, temperature 36.1 C (97 F), temperature source Temporal, resp. rate12, SpO2 94%. Relevant Results Transthoracic echocardiogram done on 01/16/2024: Left atrium mildly enlarged, moderate mitral annular calcification and +1 MR, severe diffuse aortic valve calcification moderate aortic valve stenosis with mild regurgitation no pericardial effusion pulmonic valve is not well visualized moderate concentric LVH, LVEF: 65%. Assessment/Plan Active Problems: There are no active Hospital Problems. Impression/plan: 1. NSTEMI recently, left heart catheterization recently done reveals severe diffuse aortic valve calcification with aortic valve stenosis and mild mitral regurgitation. 99% ostial occlusion of the first diagonal branch. He may be a candidate for TAVR as well as possible stent placement in the firstdiagonal branch. 2. Labile hypertension 3. Hypothyroidism. 4. BPH by history. 5. SERGO. 6. 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 I will continue outpatient medications cardiology consultation pending. documented in this encounterSAC[facility] [id number] Plan of care note* Care Plan - Maria Del Carmen Cruz RN - 01/20/2024 1:23 AM EDT Problem: Pain - Adult Goal: Verbalizes/displays adequate comfort level or baseline comfort level Outcome: Progressing Problem: Safety - Adult Goal: Free from fall injury Outcome: Progressing Problem: Discharge Planning Goal: Discharge to home or other facility with appropriate resources Outcome: Progressing Problem: Chronic Conditions and Co-morbidities Goal: Patient's chronic conditions and co-morbidity symptoms are monitored and maintained or improved Outcome: Progressing [id number] Miscellaneous Notes* Telephone Encounter - Whit Swan Adm - 04/29/2022 1:53 PM EST Patient phoned in today to request cancelling his CT chest scan test scheduled today and thefuture appointment for tomorrow 04-30-22 with the [facility] surgeon. He verbalized that he refuses to wear a mask and confirmed that he understands this will delay his treatment/ plan with the surgeon. Whit Swan Field Representative/Health Education documented in this [facility]22 NoteHNO ID: [id number] Author: Sarah Pantoja RN Service: ? Author Type: Registered Nurse Type: Progress Notes Filed: 03/11/2022 11:29 AM Note Text: 04/29/2019 THOR OPD bilateral robotic thymectomy on 04/23/17 for a stage IIA thymoma.- dr manriquez ct order placed , Care Everywhere review show no new [facility] since [facility] History of Present illness Narrative* Sarah Pantoja RN - 03/11/2022 11:24 AM EDT 04/29/2019 THOR OPD bilateral robotic thymectomy on 04/23/17 for a stage IIA thymoma.- dr manriquez ct order placed , Care Everywhere review show no new imaging since 2018 documented in this encounterC[facility]10-17-2022 Miscellaneous Notes* Telephone Encounter - Ana Rosa Sage - 03/10/2022 8:30 AM EDT Reason for call: Mr. Keenan would like to schedule an appointment with Dr. Manriquez. Home and cell number [phone] Diagnosis Malignant thymoma (HCC) +1 more Best regards, Ana Rosa documented in this encounterCincinnati [facility]06-18-2022 NoteHNO ID: [id number] Author: Nubia Whatley RN Service: Nursing Author Type: Registered Nurse Type: ED Notes Filed: 11/09/2021 6:00 PM Note Text: Discharge teaching completed. Olga woodward [address] 04-26-2017 History of Past illness Narrative* Problem Noted Date Resolved Date Acute pericarditis 04/26/2017 06/20/2019 Discharge planning issues 04/26/20172019 Overview: History: Hang Keenan is and lives in [place], [place]. Assessment: At this time, we anticipate that the patient will be discharged home once clinically stable. Plan: - Discuss needs with patient. - Collaborate with Case management to facilitate DC process - Will continue to evaluate during the post op period. - PT: home with wheeled walker-has a walker at home -continue colchicine. On Colchicine 0.6mg bid. X 1 week and daily for 1 week -EKG in 1 week at thoracic OPD if any concerns contact cards -Follow up with cardiology in 2 mths with echo . Agitation 04/23/2017 06/20/2019 Overview: History: Patient acutely agitated on arrival to CVICU. Required Haldol and Precedex infusion. Patient became somnolent and required BiPAP overnight. Currently drowsy and appropriate. Avoiding sedatives. Assessment: no noted agitation Plan: - Avoiding sedatives . Atelectasis 04/23/2017 06/20/2019 Overview: A/P: CXR with bibasilar atelectasis. Currently on 4L NC. Pain control, PEP and wean O2 as tolerated. Postoperative pain 04/23/2017 06/20/2019 Overview: History: S/P robotic thymectomy. 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 -bowel regimen: MOM, dulcolax, and miralax . 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 06/20/2019 Gross hematuria 07/24/2009 06/20/2019 Other specified congenital anomaly of skin 05/1205/30/2009 Special screening for malignant neoplasms, colon 04/13/2007 06/20/2019 documented as of this encounter (statuses as of 03/10/2022) [facility] History of Past illness Narrative* Problem Noted Date Resolved Date Acute pericarditis 04/26/2017 06/20/2019 Discharge planning issues 04/26/20172019 Overview: History: Hang Keenan is and lives in [place], [place]. Assessment: At this time, we anticipate that the patient will be discharged home once clinically stable. Plan: - Discuss needs with patient. - Collaborate with Case management to facilitate DC process - Will continue to evaluate during the post op period. - PT: home with wheeled walker-has a walker at home -continue colchicine. On Colchicine 0.6mg bid. X 1 week and daily for 1 week -EKG in 1 week at thoracic OPD if any concerns contact cards -Follow up with cardiology in 2 mths with echo . Agitation 04/23/2017 06/20/2019 Overview: History: Patient acutely agitated on arrival to CVICU. Required Haldol and Precedex infusion. Patient became somnolent and required BiPAP overnight. Currently drowsy and appropriate. Avoiding sedatives. Assessment: no noted agitation Plan: - Avoiding sedatives . Atelectasis 04/23/2017 06/20/2019 Overview: A/P: CXR with bibasilar atelectasis. Currently on 4L NC. Pain control, PEP and wean O2 as tolerated. Postoperative pain 04/23/2017 06/20/2019 Overview: History: S/P robotic thymectomy. 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 -bowel regimen: MOM, dulcolax, and miralax . 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 Assessment: At this time, we anticipate that the patient will be discharged home once clinically stable. Plan: - Discuss needs with patient. - Collaborate with Case management to facilitate DC process - Will continue to evaluate during the post op period. - PT: home with wheeled walker-has a walker at home -continue colchicine. On Colchicine 0.6mg bid. X 1 week and daily for 1 week -EKG in 1 week at thoracic OPD if any concerns contact cards -Follow up with cardiology in 2 mths with echo . Agitation 04/23/2017 06/20/2019 Overview: History: Patient acutely agitated on arrival to CVICU. Required Haldol and Precedex infusion. Patient became somnolent and required BiPAP overnight. Currently drowsy and appropriate. Avoiding sedatives. Assessment: no noted agitation Plan: - Avoiding sedatives . Atelectasis 04/23/2017 06/20/2019 Overview: A/P: CXR with bibasilar atelectasis. Currently on 4L NC. Pain control, PEP and wean O2 as tolerated. Postoperative pain 04/23/2017 06/20/2019 Overview: History: S/P robotic thymectomy. 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 -bowel regimen: MOM, dulcolax, and miralax . 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 06/20/2019 Gross hematuria 07/24/2009 06/20/2019 Other specified congenital anomaly of skin 05/1205/30/2009 Special screening for malignant neoplasms, colon 04/13/2007 06/20/2019 documented as of this encounter (statuses as of 04/29/2022) [facility]* Diagnosis Onset Date Resolution Status SVT (supraventricular tachycardia) acute Atherosclerotic heart diseas e of [place] coronary artery without angina pectoris chronic Nonrheumatic aortic (valve) stenosis chronic Paroxysmal A-fib chronic Stented coronary artery November 23, 2018 anjelica alfredo Essential hypertension acute 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 Paroxysmal A-fib chronic Hyponatremia resolved Leukocytosis resolved Atherosclerotic heart diseas e of [place] coronary artery without angina pectoris chronic Hypothyroidism chronic Nonrheumatic aortic (valve) stenosis chronic Paroxysmal A-fib chronic Stented coronary artery November 23, [address] elevation (STEMI) myocardial infarction acute Nonrheumatic aortic (valve) stenosis chronic Paroxysmal A-fib chronic [facility] Work Phone: Evaluation note* Diagnosis Onset Date Resolution Status SVT (supraventricular tachycardia) acute Atherosclerotic heart diseas e of [place] coronary artery without angina pectoris chronic Nonrheumatic aortic (valve) stenosis chronic Paroxysmal A-fib chronic Stented coronary artery September 14, 2021 chronic Essential hypertension acute 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 Paroxysmal A-fib chronic Hyponatremia resolved Leukocytosis resolved Atherosclerotic heart diseas e of [place] coronary artery without angina pectoris chronic Hypothyroidism chronic Nonrheumatic aortic (valve) stenosis chronic Paroxysmal A-fib chronic Stented coronary artery September 14, 2021 chronic Essential hypertension acute Hypotension acute ST elevation (STEMI) myocardial infarction acute SVT (supraventricular tachycardia) acute Atherosclerotic heart diseas e of [place] coronary artery without angina pectoris chronic Hyperlipidemia chronic Nonrheumatic aortic (valve) stenosis chronic Nonrheumatic mitral valve regurgitation chronic SERGO (obstructive sleep apnea) chronic Paroxysmal A-fib chronic [facility] Work Phone: Evaluation note* Diagnosis Onset Date Resolution Status Atherosclerotic heart diseas e of [place] coronary artery without angina pectoris acute Essential hypertension acute Paroxysmal A-fib acute 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 acute Hyponatremia resolved Leukocytosis resolved Atherosclerotic heart diseas e of [place] coronary artery without angina pectoris acute Nonrheumatic aortic (valve) stenosis acute Paroxysmal A-fib acute Hypothyroidism chronic Stented coronary artery October 01, 2021 [facility] Atherosclerotic heart diseas e of [place] coronary artery without angina pectoris acute Essential hypertension acute Hyperlipidemia acute Nonrheumatic aortic (valve) stenosis acute Nonrheumatic mitral valve regurgitation acute Paroxysmal A-fib acute Hypotension resolved SVT (supraventricular tachycardia) resolved Atherosclerotic heart diseas e of [place] coronary artery without angina pectoris acute Chest tightness acute Essential hypertension acute Hyperlipidemia acute Nonrheumatic aortic (valve) stenosis acute Nonrheumatic mitral valve regurgitation acute Paroxysmal A-fib acute Sustained SVT acute Stented coronary artery October 01, 2021 [facility] Atherosclerotic heart diseas e of [place] coronary artery without angina pectoris acute Essential hypertension acute Hyperlipidemia acute Nonrheumatic aortic (valve) stenosis acute Nonrheumatic mitral valve regurgitation acute Paroxysmal A-fib acute Stented coronary artery October 01, 2021 [facility] Atherosclerotic heart diseas e of [place] coronary artery without angina pectoris acute Chest tightness acute Essential hypertension acute Hyperlipidemia acute Nonrheumatic aortic (valve) stenosis acute Nonrheumatic mitral valve regurgitation acute Paroxysmal A-fib acute Sustained SVT acute Stented coronary artery October 01, 2021 [facility] Work Phone: Evaluation note* Diagnosis Onset Date Resolution Status Atherosclerotic heart diseas e of [place] coronary artery without angina pectoris acute Nonrheumatic aortic (valve) stenosis acute Paroxysmal A-fib acute Hypothyroidism chronic Stented coronary artery October 01, 2021 anjelica alfredo Atherosclerotic heart diseas e of [place] coronary artery without angina pectoris acute Essential hypertension acute Hyperlipidemia acute Nonrheumatic aortic (valve) stenosis acute Nonrheumatic mitral valve regurgitation acute Paroxysmal A-fib acute Hypotension resolved SVT (supraventricular tachycardia) resolved Atherosclerotic heart diseas e of [place] coronary artery without angina pectoris acute Chest tightness acute Essential hypertension acute Hyperlipidemia acute Nonrheumatic aortic (valve) stenosis acute Nonrheumatic mitral valve regurgitation acute Paroxysmal A-fib acute Sustained SVT acute Stented coronary artery October 01, 2021 anjelica anthonyazul Atherosclerotic heart diseas e of [place] coronary artery without angina pectoris acute Essential hypertension acute Hyperlipidemia acute Nonrheumatic aortic (valve) stenosis acute Nonrheumatic mitral valve regurgitation acute Paroxysmal A-fib acute Stented coronary artery October 01, 2021 anjelica anthonyazul Atherosclerotic heart diseas e of [place] coronary artery without angina pectoris acute Chest tightness acute Essential hypertension acute Hyperlipidemia acute Nonrheumatic aortic (valve) stenosis acute Nonrheumatic mitral valve regurgitation acute Paroxysmal A-fib acute Sustained SVT acute Stented coronary artery October 01, 2021 [facility] Work Phone: Evaluation note* Diagnosis Malignant neoplasm of thymus (HCC)- Primary Malignant neoplasm of thymus documented in this encounter [facility]Eval[facility] [place] noteNo assessment information availableWTriHealth Work Phone: Evaluation note* Diagnosis Onset Date Resolution Status Essential hypertension acute Hyperlipidemia acute Nonrheumatic aortic (valve) stenosis acute Nonrheumatic mitral valve regurgitation acute Paroxysmal A-fib acute Sustained SVT acute Stented coronary artery October 01, 2021 [facility] Work Phone: Evaluation note* Diagnosis Aortic stenosis, moderate- Primary Aortic stenosis, moderate Stented coronary artery Postsurgical percutaneous transluminal coronary angioplasty status Malignant thymoma (HCC) Paroxysmal atrial fibrillation (HCC) Atrial fibrillation Malignant thymoma (HCC) Paroxysmal atrial fibrillation (HCC) Atrial fibrillation NSTEMI (non-ST elevated myocardial infarction) ([facility]) Acute myocardial infarction, subendocardial infarction, episode of care unspecified Aortic stenosis, moderate documented in this encounter [facility] note* Diagnosis Nonrheumatic aortic valve stenosis- Primary documented in this encounter [facility] note* Diagnosis Aortic stenosis, moderate documented in this encounter [facility] note* Diagnosis Aortic stenosis, moderate documented in this encounter [facility] note* Diagnosis Aortic valve stenosis, etiology of cardiac valve disease unspecified documented in this encounter [facility] note* Diagnosis Aortic stenosis, severe- Primary Severe aortic stenosis- Primary Aortic valve disorders Aortic stenosis, severe documented in this encounter [facility] note* Diagnosis Aortic stenosis, severe- Primary Severe aortic stenosis Aortic valve disorders Severe aortic stenosis Aortic valve disorders Aortic stenosis, severe documented in this encounter [facility] note* Diagnosis First degree AV block- Primary First degree atrioventricular block Paroxysmal atrial fibrillation (HCC) Atrial fibrillation Other specified heart block Aortic valve stenosis, etiology of cardiac valve disease unspecified Abnormal EKG Nonspecific abnormal electrocardiogram (ECG) (EKG) S/P TAVR (transcatheter aortic valve replacement) documented in this encounter [facility] note* Diagnosis Paroxysmal atrial fibrillation (HCC)- Primary Atrial fibrillation Aortic stenosis, severe First degree AV block First degree atrioventricular block documented in this encounter [facility] note* Diagnosis First degree AV block First degree atrioventricular block Other specified heart block Aortic valve stenosis, etiology of cardiac valve disease unspecified Abnormal EKG Nonspecific abnormal electrocardiogram (ECG) (EKG) S/P TAVR (transcatheter aortic valve replacement) documented in this encounter [facility] note* Diagnosis S/P TAVR (transcatheter aortic valve replacement)- Primary Paroxysmal atrial fibrillation (HCC) Atrial fibrillation Severe aortic stenosis Aortic valve disorders Essential hypertension Unspecified essential hypertension Coronary artery disease involving [place] coronary artery of [place] heart without angina pectoris documented in this encounter [facility] note* Diagnosis Severe aortic stenosis Aortic valve disorders documented in this encounter [facility] note* Diagnosis Severe aortic stenosis- Primary Aortic valve disorders Severe aortic stenosis Aortic valve disorders documented in this encounter [facility] for referral (narrative)* Consultation (Routine) - Pending Review Specialty Diagnoses / Procedures Referred By Contact Referred To Contact Cardiac Rehabilitation / Cardiology Diagnoses Stented coronary artery Procedures AL OFFICE/OUTPATIENT NEW HIGH MDM 60 MINUTES Nathaly Myrick APRN - CNP [address] [place] [address] [facility] 95 Card/Pulm Rehab [address] [facility] [address] [place] [address] Referral ID Status Reason Start Date Expiration Date Visits Requested Visits Authorized [id number] Pending Review Specialty Services Required 01/21/2024 01/20/2025 1 1 [facility] (narrative)No reason for referral information availableWTriHealth Work Phone: Reason for visit Narrative* Imaging (Routine) - Closed Specialty Diagnoses / Procedures Referred By Contac t Referred To Contact Radiology Diagnoses Aortic stenosis, moderate Procedures CTA Angiogram TAVR Jolene Resendiz APRN - CNP [address] [place] [address] Phone: tel: fax: Referral ID Status Reason Start Date Expiration Date Visits Re quested Visits Authorized [id number] Closed 01/27/2024 01/26/2025 1 1 [facility] [employer] CorporationReason for visit Narrative* Auth/Cert (Routine) Specialty Diagnoses / Procedures Referred By Contac t Referred To Contact Diagnoses Aortic stenosis, severe Procedures AL REPLACE AORTIC VALVE PERQ FEMORAL ARTRY APPROACH TRANSCATHETER AORTIC VALVE REPLACEMENT, TRANSTHORACIC ECHOCARDIOGRAM TRANSCATHETER AORTIC VALVE REPLACEMENT, TRANSTHORACIC ECHOCARDIOGRAM Beck Santillan MD [address] [place] [address] Phone: tel: fax: Referral ID Status Reason Start Date Expiration Date Visits Re quested Visits Authorized [id number] 04/15/2024 1 1 [facility] N[facility]ative* Cardiology (Emergency) - Closed Specialty Diagnoses / Procedures Referred By Contac t Referred To Contact Cardiology Diagnoses First degree AV block Other specified heart block Abnormal EKG S/P TAVR (transcatheter aortic valve replacement) Procedures Cardiac laboratory monitor (30 days) Kaila Curiel APRN - FACILITY MAINTENANCE WORKER [address] [address] Phone: tel: fax: Referral ID Status Reason Start Date Expiration Date Visits Re quested Visits Authorized [id number] Closed 05/05/2024 04/30/2025 1 1 [facility] for visit Narrative* Imaging (Routine) - Closed Specialty Diagnoses / Procedures Referred By Axel t Referred To Contact Cardiology Diagnoses First degree AV block Other specified heart block Aortic valve stenosis, etiology of cardiac valve disease unspecified Abnormal EKG S/P TAVR (transcatheter aortic valve replacement) Procedures Transthoracic echocardiogram (TTE) complete with contrast, bubble, strain, and 3D PRN AL ECHO TTHRC R-T 2D W/WOM-MODE COMPL SPEC&COLR D AL TTE W OR WO FOL WCON,DOPPLER Kaila Curiel, JIG GRINDER - FACILITY MAINTENANCE WORKER [address] [place] [address] Phone: tel: fax: Referral ID Status Reason Start Date Expiration Date Visits Re quested Visits Authorized [id number] Closed 05/05/2024 05/05/2025 1 1 [facility] for visit Narrative* Imaging (Routine) - Closed Specialty Diagnoses / Procedures [facility] Referred To Contact Cardiology Diagnoses Severe aortic stenosis Procedures Transthoracic echocardiogram (TTE) complete with contrast, bubble, strain, and 3D PRN AL ECHO TTHRC R-T 2D W/WOM-MODE COMPL SPEC&COLR D AL TTE W OR WO FOL WCON,DOPPLER Jolene Resendiz JIG GRINDER - FACILITY MAINTENANCE WORKER [address] [place] [address] Phone: tel: fax: Referral ID Status Reason Start Date Expiration Date Visits Re quested Visits Authorized [id number] Closed 05/24/2024 05/24/2025 1 1 [facility] Summary Purpose Family History No Family History Records Found Relationship Condition Age at Onset Recorded Date/T zoë father Cardiac disease Unknown Hypertension Unknown mother Cerebrovascular accident (CVA) Unknown brother Malignant neoplasm Unknown sister Malignant neoplasm Unknown Advance Directives No Advanced Directives Records Found Advance Directive Response Recorded Date/ Time Name of Medical Power of Diesel Engine Specialist June 28, 2021 2:56pm Advance Directives Yes November 23 9 9:37am Living Will No September 14, 2021 4:40pm Power of Diesel Engine Specialist No September 14 4:40pm Advance Directive Response Recorded Date/ Time Name of Medical Power of Diesel Engine Specialist June 28, 2021 2:56pm Advance Directives Yes November 23 9:37am Living Will No September 14, 2021 6:38pm Power of Diesel Engine Specialist No September 14 6:38pm Advance Directive Response Recorded Date/ Time Name of Medical Power of Diesel Engine Specialist June 28, 2021 2:56pm Advance Directives on File Yes September 222021 8:21am Name of Medical Power of Diesel Engine Specialist José Luis Molina fred October 01, 2021 12:14pm Advance Directives on File Yes September 232021 9:01am Advance Directives Yes October 01 8:21am Living Will No November 07, 2021 12:05pm Power of Diesel Engine Specialist No November 07 12:05pm Advance Directive Response Recorded Date/ Time Advance Directives on File Yes September 222021 8:21am Name of Medical Power of Diesel Engine Specialist José Luis Molina fred October 01, 2021 12:14pm Advance Directives on File Yes September 232021 9:01am Name of Medical Power of Diesel Engine Specialist TRINA KEENAN November 07, 2021 8:41pm Advance Directives Yes October 01 8:21am Living Will No November 18, 2021 5:20pm Power of Diesel Engine Specialist No November 18 5:20pm Documents on File Type Date Recorded 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 Mechanical Designer Expl anation Advance Directive(s) 04/17/2017 11:19 AM Documents on File Type Date Recorded Patient Mechanical Designer Expl anation Advance Directive(s) 04/17/2017 11:19 AM Advance Directive Response Recorded Date/ Time Advance Directives Yes October 01 8:21am Living Will No November 18, 2021 5:20pm Power of Diesel Engine Specialist No November 18 5:20pm Advance Directive Response Recorded Date/ Time Advance Directives Yes October 01 7:21am Living Will No November 18, 2021 4:20pm Power of Diesel Engine Specialist No November 18 4:20pm Date Activated Date Inactivated Comments 01/20/2024 2:14 AM 01/21/2024 3:41 PM Documents on File Type Date Recorded Patient Mechanical Designer Expl anation Advance Directives and Livin g Will 02/09/2024 11:15 AM Power of Diesel Engine Specialist 02/09/2024 11:15 AM Date Activated Date Inactivated Comments 01/20/2024 2:14 AM 01/21/2024 3:41 PM Documents on File Type Date Recorded Patient Mechanical Designer Expl anation Advance Directives and Livin g Will 02/09/2024 11:15 AM Power of Diesel Engine Specialist 02/09/2024 11:15 AM Date Activated Date Inactivated Comments 04/25/2024 9:22 AM 04/26/2024 3:18 PM Date Activated Date Inactivated Comments 01/20/2024 2:14 AM 01/21/2024 3:41 PM Date Activated Date Inactivated Comments 04/25/2024 9:22 AM 04/26/2024 3:18 PM Date Activated Date Inactivated Comments 01/20/2024 2:14 AM 01/21/2024 3:41 PM Advance Directive Response Recorded Date/ Time Living Will Yes July 23, 2024 5:44am Do you have a Healthcare Power of Diesel Engine Specialist? Yes July 23, 2024 5:44am Advance Directives Yes October 01 8:21am Advance Directive Response Recorded Date/ Time Living Will Yes September 21, 2024 8:56pm Do you have a Healthcare Power of Diesel Engine Specialist? 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 Paroxysmal A-fib Hyponatremia Leukocytosis Atherosclerotic heart disease of [place] coronary artery without angina pectoris Hypothyroidism Nonrheumatic aortic (valve) stenosis Paroxysmal A-fib Stented coronary artery ST elevation (STEMI) myocardial infarction Nonrheumatic aortic (valve) stenosis Paroxysmal A-fib Chief Complaint CARDIAC CLEARANCE RIGHT KNEE RUBEN PROTOCAL/ EORDER LABS FOR ROOF PRE-OP PRE-OP rt total knee w ruben rt total knee w ruben rt total knee w ruben overdue for 6 m fu STEMI ACUTE STEMI ACUTE STEMI ACUTE STEMI Reason for Visit SVT (supraventricula r tachycardia) Atherosclerotic heart disease of [place] coronary artery without angina pectoris Nonrheumatic aortic (valve) stenosis Paroxysmal A-fib Stented coronary artery Essential hypertension 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 Paroxysmal A-fib Hyponatremia Leukocytosis Atherosclerotic heart disease of [place] coronary artery without angina pectoris Hypothyroidism Nonrheumatic aortic (valve) stenosis Paroxysmal A-fib Stented coronary artery Essential hypertension Hypotension ST elevation (STEMI) myocardial infarction SVT (supraventricular tachycardia) Atherosclerotic heart disease of [place] coronary artery without angina pectoris Hyperlipidemia Nonrheumatic aortic (valve) stenosis Nonrheumatic mitral valve regurgitation SERGO (obstructive sleep apnea) Paroxysmal A-fib Chief Complaint rt total knee w ruben rt total knee w ruben rt total knee w ruben overdue for 6 m fu STEMI ACUTE STEMI ACUTE STEMI ACUTE STEMI ACUTE STEMI ACUTE STEMI ACUTE STEMI PALPITATIONS Amb Documentation STEMI STAGED PROCEDURE STAGED PROCEDURE CAD / PCI CAD / PCI STAGED PROCEDURE 1 WK S/P PTCA PCI W/STENTING PCI w/coronary stenting - NSTEMI BLOOD IN URINE Reason for Visit Atherosclerotic hear t disease of [place] coronary artery without angina pectoris Essential hypertension Paroxysmal A-fib Status post revision of total replacement of right knee Hyponatremia Leukocytosis Atherosclerotic heart disease of [place] coronary artery without angina pectoris Nonrheumatic aortic (valve) stenosis Paroxysmal A-fib Hypothyroidism Stented coronary artery Atherosclerotic heart disease of [place] coronary artery without angina pectoris Essential hypertension Hyperlipidemia Nonrheumatic aortic (valve) stenosis Nonrheumatic mitral valve regurgitation Paroxysmal A-fib Hypotension SVT (supraventricular tachycardia) Atherosclerotic heart disease of [place] coronary artery without angina pectoris Chest tightness Essential hypertension Hyperlipidemia Nonrheumatic aortic (valve) stenosis Nonrheumatic mitral valve regurgitation Paroxysmal A-fib Sustained SVT Stented coronary artery Atherosclerotic heart disease of [place] coronary artery without angina pectoris Essential hypertension Hyperlipidemia Nonrheumatic aortic (valve) stenosis Nonrheumatic mitral valve regurgitation Paroxysmal A-fib Stented coronary artery Atherosclerotic heart disease of [place] coronary artery without angina pectoris Chest tightness Essential hypertension Hyperlipidemia Nonrheumatic aortic (valve) stenosis Nonrheumatic mitral valve regurgitation Paroxysmal A-fib Sustained SVT Stented coronary artery Chief Complaint overdue for 6 m fu STEMI ACUTE STEMI ACUTE STEMI ACUTE STEMI ACUTE STEMI ACUTE STEMI ACUTE STEMI PALPITATIONS Amb Documentation STEMI STAGED PROCEDURE STAGED PROCEDURE CAD / PCI CAD / PCI STAGED PROCEDURE 1 WK S/P PTCA PCI W/STENTING PCI w/coronary stenting - NSTEMI BLOOD IN URINE STAT HEMATURIA GROIN PAIN Reason for Visit Atherosclerotic hear t disease of [place] coronary artery without angina pectoris Nonrheumatic aortic (valve) stenosis Paroxysmal A-fib Hypothyroidism Stented coronary artery Atherosclerotic heart disease of [place] coronary artery without angina pectoris Essential hypertension Hyperlipidemia Nonrheumatic aortic (valve) stenosis Nonrheumatic mitral valve regurgitation Paroxysmal A-fib Hypotension SVT (supraventricular tachycardia) Atherosclerotic heart disease of [place] coronary artery without angina pectoris Chest tightness Essential hypertension Hyperlipidemia Nonrheumatic aortic (valve) stenosis Nonrheumatic mitral valve regurgitation Paroxysmal A-fib Sustained SVT Stented coronary artery Atherosclerotic heart disease of [place] coronary artery without angina pectoris Essential hypertension Hyperlipidemia Nonrheumatic aortic (valve) stenosis Nonrheumatic mitral valve regurgitation Paroxysmal A-fib Stented coronary artery Atherosclerotic heart disease of [place] coronary artery without angina pectoris Chest tightness Essential hypertension Hyperlipidemia Nonrheumatic aortic (valve) stenosis Nonrheumatic mitral valve regurgitation Paroxysmal A-fib Sustained SVT Stented coronary artery Chief Complaint MURMER Chief Complaint MURMER 1 y fu PREV PFM PT S/O INR MURMUR Reason for Visit Essential hypertensi on Hyperlipidemia Nonrheumatic aortic (valve) stenosis Nonrheumatic mitral valve regurgitation Paroxysmal A-fib Sustained SVT Stented coronary artery Chief Complaint 1 y fu PREV PFM PT S/O INR MURMUR S/O INR S/O INR Reason for Visit Essential hypertensi on Hyperlipidemia Nonrheumatic aortic (valve) stenosis Nonrheumatic mitral valve regurgitation Paroxysmal A-fib Sustained SVT Stented coronary artery Chief Complaint S/O INR MURMUR S/O INR S/O INR S/O INR Chief Complaint S/O INR S/O INR S/O INR S/O INR Chief Complaint S/O INR S/O INR S/O INR Chief Complaint S/O INR S/O INR 9 M FU S/O INR - ADD ORDER FROM DR RODRIGUES 07/22/23 Reason for Visit Essential hypertensi on Hyperlipidemia Nonrheumatic aortic (valve) stenosis Nonrheumatic mitral valve regurgitation Paroxysmal A-fib Sustained SVT Stented coronary artery Chief Complaint S/O INR S/O INR 9 M FU S/O INR - ADD ORDER FROM DR RODRIGUES 07/22/23 Nonrheumatic aortic (valve) stenosis Reason for Visit Essential hypertensi on Hyperlipidemia Nonrheumatic aortic (valve) stenosis Nonrheumatic mitral valve regurgitation Paroxysmal A-fib Sustained SVT Stented coronary artery Chief Complaint S/O INR 9 M FU S/O INR - ADD ORDER FROM DR RODRIGUES 07/22/23 Nonrheumatic aortic (valve) stenosis Reason for Visit Essential hypertensi on Hyperlipidemia Nonrheumatic aortic (valve) stenosis Nonrheumatic mitral valve regurgitation Paroxysmal A-fib Sustained SVT Stented coronary artery Chief Complaint Admit Date S/O INR August 23, 2024 9:39 am Chief Complaint Admit Date S/O INR December 27, 2024 8:2 9am 6 M FU January 19, 2025 9: 41am Reason for Visit Admit Date Atherosclerotic heart diseas e of [place] coronary artery without angina pectoris January 19, 2025 9:41am Essential hypertension January 19, 2025 9:41am History of transcatheter aortic valve re placement (TAVR) January 19, 2025 9:41am Hyperlipidemia January 19, 2025 9: 41am Pre-op evaluation January 19, 2025 9: 41am 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 A ugust 2024 9:41am Paroxysmal A-fib January 19, 2025 9: 41am Chief Complaint Admit Date S/O INR December 27, 2024 8:2 9am 6 M FU January 19, 2025 9: 41am S/O INR February 06, 2025 10:46am Reason for Referral Specialty Diagnoses / Procedures Referred By Axel blum Referred To Contact CT IMAGING Diagnoses Malignant neoplasm of thymus (HCC) Procedures CT CHEST W IVCON DIAGNOSTIC COMPUTED TOMOGRAPHY THORAX W/CONTRAST Ryan Manriquez MD [address] [place] [address] Ct Imaging Referral ID Status Reason Start Date Expiration Date Visits Requested Visits Authorized [id number] Authorized Auto-Generat ed Referral 2 04/10/2023 1 1 Additional Source Comments (unrecognized sect ion and content) No Status Records FoundNo Status Records FoundNo Status Records FoundNo Status Records FoundNo Status Records Found INFORMATION SOURCE (unrecogn ized section and content) DATE CREATED AUTHOR 11/13/2017 [facility] DATE CREATED AUTHOR AUTHOR'S ORGANIZ ATION 11/16/2021 [facility] DATE CREATED AUTHOR AUTHOR'S ORGANIZ ATION 04/30/2022 [facility] DATE CREATED AUTHOR AUTHOR'S ORGANIZ ATION 04/01/2025 [facility] DATE CREATED AUTHOR AUTHOR'S ORGANIZ ATION 04/07/2025 [facility] Goals (unrecognized section and content) Goals may be documented in a n alternate sectionGoals may be documented in an alternate sectionGoals may be documented in an alternate sectionGoals may be documented in an alternate sectionGoals may be documented in an alternate sectionGoals may be documented in an alternate sectionGoals may be documented in an alternate sectionGoals may be documented in an alternate sectionGoals may be documented in an alternate sectionGoals may be documented in an alternate sectionGoals may be documented in an alternate sectionGoals may be documented in an alternate sectionGoals may be documented in an alternate sectionGoals may be documented in an alternate sectionGoals may be documented in an alternate sectionGoals may be documented in an alternate section Source Comments (unrecognize d section and content) In the event this informatio n is protected by the Federal Confidentiality of Alcohol and Drug Abuse Patient Records regulations: The Federal rules restrict any use of the information to criminally investigate or prosecute any alcohol or drug abuse patient.[facility] the event this information is protected by the Federal Confidentiality of Alcohol and Drug Abuse Patient Records regulations: The Federal rules restrict any use of the information to criminally investigate or prosecute any alcohol or drug abuse patient.[facility] Center[facility] the event this information is protected by the Federal Confidentiality of Alcohol and Drug Abuse Patient Records regulations: The Federal rules restrict any use of the information to criminally investigate or prosecute any alcohol or drug abuse patient.[facility] Reason for Visit (unrecogniz ed section and content) Reason Comments Appointment Reason Comments Appointment Cancelled Per call from alfonso ent Specialty Diagnoses / Procedures Referred By Contac t Referred To Contact Diagnoses Aortic stenosis, moderate unstable angina Procedures . Wesley La MD [address] [place] [address] [facility] [address] [address] Referral ID Status Reason Start Date Expiration Date Visits Re quested Visits Authorized [id number] 1 1 Reason Onset Date Comments BPCI Outreach 02/11/2024 Reason Onset Date Comments BPCI Outreach 03/09/2024 Reason Comments Cardiac Valve Problem Reason Comments Hospital Follow-up Reason Onset Date Comments Prior Authorization 05/05/2024 Reason Comments Cardiac Valve Problem Reason Onset Date Comments Transitional Care Management Outreach 05/27/2024 Telephone Visit 05/27/2024 Reason Onset Date Comments Transitional Care Management Outreach 06/28/2024 Telephone Visit 06/28/2024 Reason Onset Date Comments BPCI Outreach 05/20/2024 Care Teams (unrecognized sec tion and content) Composition Instructor Relationship Specialty Start Date End Date Tapan Cornelius MD PCP - General 05/29/09 Richar Espana MD, [address] [place], [place] [id number] Physician Radiation Oncology 05/06/17 Ruby Armas MD [address] [place] [address] Primary Staff Physician Cardiology 08/10/18 Composition Instructor Relationship Specialty Start Date End Date Tapan Cornelius MD PCP - General 05/29/09 Richar Espana MD, [facility] [place] [address] Physician Radiation Oncology 05/06/17 Ruby Armas MD [address] [place] [address] Primary Staff Physician Cardiology 08/10/18 Team Status: Active Member Role Status Dates Dr. Tapan Cornelius MD Family Provider Active Team Status: Active Member Role Status Dates Dr. Toro Guillermo MD Attending Provider Active Team Status: Inactive Member Role Status Dates Kaila RAMIREZ PA Attending Provider, Referr ing Provider Active BONY PASCUAL Primary Care Provider, Other Provider Ac tive Team Status: Active Member Role Status Dates Dr. Tapan Cornelius MD Family Provider Active Ankur Lovett ACCOUNT SERVICES SPECIALIST-C Primary Care Provider Active Team Status: Inactive Member Role Status Dates Kaila RAMIREZ PA Attending Provider Active Team Status: Active Member Role Status Dates Ankur Lovett ACCOUNT SERVICES SPECIALIST-C Primary Care Provider Active Dr. Bobby Kim MD Attending Provider, Referring Pro vider Active Team Status: Inactive Member Role Status Dates Kaila RAMIREZ PA Attending Provider, Referr ing Provider Active Ankur Lovett ACCOUNT SERVICES SPECIALIST-C Primary Care Provider Active Team Status: Inactive Member Role Status Dates Kaila RAMIREZ PA Attending Provider, Referr ing Provider Active Ankur Lovett , ACCOUNT SERVICES SPECIALIST-C Primary Care Provider Active Dr. Devon Briones MD Other Provider Active Team Status: Active Member Role Status Dates Dr. Tapan Cornelius MD Family Provider Active Dr. Lisseth Rodrigues MD Primary Care Provider Active Team Status: Inactive Member Role Status Dates Kaila RAMIREZ PA Attending Provider Active Ankur Lovett , ACCOUNT SERVICES SPECIALIST-C Primary Care Provider, Referring P earnest Active Team Status: Inactive Member Role Status Dates Kaila RAMIREZ PA Attending Provider, Referr ing Provider Active Dr. Devon Briones MD Other Provider Active Dr. Lisseth Rodrigues MD Primary Care Provider Active Team Status: Active Member Role Status Dates Ankur Lovett , ACCOUNT SERVICES SPECIALIST-C Primary Care Provider Active Dr. Vasquez Ding MD Attending Provider Activ e Team Status: Inactive Member Role Status Dates Ankur Lovett , ACCOUNT SERVICES SPECIALIST-C Primary Care Provider Active Kaila RAMIREZ PA Attending Provider Active Composition Instructor Relationship Specialty Start Date End Date Bony, Ankur, LEGAL AIDE [address] [place], [place] [id number] PCP - General Family Medicine 01/19/24 Composition Instructor Relationship Specialty Start Date End Date Bony, Ankur, LEGAL AIDE [address] [place], [place] [address] PCP - General Family Medicine 01/19/24 Laina Montes, RN Registered Nurse Ladies Underwear Operator Manager 02/01/24 Composition Instructor Relationship Specialty Start Date End Date Bony, Ankur, LEGAL AIDE [address] [place], [place] [address] PCP - General Family Medicine 01/19/24 Laina Montes, JESSICA Registered Nurse Ladies Underwear Operator Manager 02/01/24 Composition Instructor Relationship Specialty Start Date End Date Bony, Ankur, LEGAL AIDE [address] [place] [address] PCP - General Family Medicine 01/19/24 Laina Montes, RN Registered Nurse Ladies Underwear Operator Manager 02/01/24 Composition Instructor Relationship Specialty Start Date End Date Ankur Lovett FNP [address] [place] [address] PCP - General Family Medicine 01/19/24 Laina Montes, RN Registered Nurse Ladies Underwear Operator Manager 02/01/24 Composition Instructor Relationship Specialty Start Date End Date Ankur Lovett FNP [address] [place] [address] PCP - General Family Medicine 01/19/24 Laina Montes, RN Registered Nurse Ladies Underwear Operator Manager 02/01/2404/20 Composition Instructor Relationship Specialty Start Date End Date Ankur Lovett FNP [address] [place] [address] PCP - General Family Medicine 01/19/24 Gabriela Rehman, defence force senior officerLadies Underwear Operator Manager 04/26/24 Composition Instructor Relationship Specialty Start Date End Date Ankur Lovett FNP [address] [place] [address] PCP - General Family Medicine 01/19/24 Gabriela Rehman, RN Registered Nurse Ladies Underwear Operator Manager 04/26/24 Composition Instructor Relationship Specialty Start Date End Date Ankur Lovett FNP [address] [place] [address] PCP - General Family Medicine 01/19/24 Gabriela Rehman, JESSICA Registered Nurse Ladies Underwear Operator Manager 04/26/24 Composition Instructor Relationship Specialty Start Date End Date Ankur Lovett FNP [address] [place] [address] PCP - General Family Medicine 01/19/24 Gabriela Rehman, JESSICA Registered Nurse Ladies Underwear Operator Manager 04/26/24 Composition Instructor Relationship Specialty Start Date End Date Ankur Lovett FNP [address] [place] [address] PCP - General Family Medicine 01/19/24 Gabriela Rehman, JESSICA Registered Nurse Ladies Underwear Operator Manager 04/26/24 Composition Instructor Relationship Specialty Start Date End Date Ankur Lovett FNP [address] [place] [address] PCP - General Family Medicine 01/19/24 Gabriela Rehman, JESSICA Registered Nurse Ladies Underwear Operator Manager 04/26/24 Composition Instructor Relationship Specialty Start Date End Date Ankur Lovett FNP [address] [place] [address] PCP - General Family Medicine 01/19/24 Gabriela eRhman, JESSICA Registered Nurse Ladies Underwear Operator Manager 04/26/24 Composition Instructor Relationship Specialty Start Date End Date Ankur Lovett LEGAL AIDE [address] [place] [address] PCP - General Family Medicine 01/19/24 Gabriela Rehman, RN Registered Nurse Ladies Underwear Operator Manager 04/26/24 Composition Instructor Relationship Specialty Start Date End Date Ankur Lovett LEGAL AIDE [address] [place] [address] PCP - General Family Medicine 01/19/24 Gabriela Rehman, JESSICA Registered Nurse Ladies Underwear Operator Manager 04/26/24 Team Status: Active Member Role/Relationship Status Dates Ankur Lovett , ACCOUNT SERVICES SPECIALIST-C Primary Care Provider Active Team Status: Inactive Member Role/Relationship Status Dates Kaila RAMIREZ PA Attending Provider Active Start: August 23, 2024 End: September 21, 2024 Kaila RAMIREZ PA Referring Provider Active Start: August 23, 2024 End: September 21, 2024 Dr. Devon Briones MD Other Provider Active Start: August 23, 2024 End: September 21, 2024 Ankur Lovett , ACCOUNT SERVICES SPECIALIST-C Primary Care Provider Active Start: August 23, 2024 End: September 21, 2024 Roxy Rodriguez Other Provider Active Start: 2024 End: September 21, 2024 Team Status: Inactive Member Role/Relationship Status Dates Ankur Lovett , ACCOUNT SERVICES SPECIALIST-C Primary Care Provider Active Start: November 15, 2024 End: November 15, 2024 Ankur Lovett , ACCOUNT SERVICES SPECIALIST-C Attending Provider Active St art: November 15, 2024 End: November 15, 2024 Team Status: Inactive Member Role/Relationship Status Dates Ankur Lovett , ACCOUNT SERVICES SPECIALIST-C Primary Care Provider Active Start: November 15, 2024 End: November 15, 2024 Ankur Lovett , ACCOUNT SERVICES SPECIALIST-C Attending Provider Active St art: November 15, 2024 End: November 15, 2024 Team Status: Active Member Role/Relationship Status Dates Kaila RAMIREZ PA Attending Provider Active Start: December 27, 2024 Kaila RAMIREZ PA Referring Provider Active Start: December 27, 2024 Dr. Devon Briones MD Other Provider Active Start: December 27, 2024 Ankur Lovett , ACCOUNT SERVICES SPECIALIST-C Primary Care Provider Active Start: December 27, 2024 Roxy Rodriguez Other Provider Active Start: 2024 Team Status: Inactive Member Role/Relationship Status Dates Ankur Lovett , ACCOUNT SERVICES SPECIALIST-C Primary Care Provider Active Start: January 19, 2025 End: January 19, 2025 Ankur Lovett , ACCOUNT SERVICES SPECIALIST-C Referring Provider Active St art: January 19, 2025 End: January 19, 2025 Dr. Олег Ortiz MD Attending Provider Active Start: January 19, 2025 End: January 19, 2025 Team Status: Inactive Member Role/Relationship Status Dates Kaila RAMIREZ PA Attending Provider Active Start: December 27, 2024 End: December 27, 2024 Kaila RAMIREZ PA Referring Provider Active Start: December 27, 2024 End: December 27, 2024 Dr. Devon Briones MD Other Provider Active Start: December 27, 2024 End: December 27, 2024 Ankur Lovett , ACCOUNT SERVICES SPECIALIST-C Primary Care Provider Active Start: December 27, 2024 End: December 27, 2024 Roxy Rodriguez Other Provider Active Start: 2024 End: December 27, 2024 Team Status: Active Member Role/Relationship Status Dates Ankur Lovett , ACCOUNT SERVICES SPECIALIST-C Primary care physician Active Team Status: Inactive Member Role/Relationship Status Dates Ankur Lovett ACCOUNT SERVICES SPECIALIST-C Primary care physician Active Start: November 15, 2024 End: November 15, 2024 Ankur Lovett ACCOUNT SERVICES SPECIALIST-C Attending physician Active S tart: November 15, 2024 End: November 15, 2024 Team Status: Inactive Member Role/Relationship Status Dates Kaila RAMIREZ PA Attending physician Active Start: December 27, 2024 End: December 27, 2024 Kaila RAMIREZ PA Referring Provider Active Start: December 27, 2024 End: December 27, 2024 Dr. Devon Briones MD Nurse Practitioner Active Start: December 27, 2024 End: December 27, 2024 Ankur Lovett ACCOUNT SERVICES SPECIALIST-C Primary care physician Active Start: December 27, 2024 End: December 27, 2024 Roxy Rodriguez Nurse Practitioner Active Start : December 27, 2024 End: December 27, 2024 Team Status: Inactive Member Role/Relationship Status Dates Ankur Lovett ACCOUNT SERVICES SPECIALIST-C Primary care physician Active Start: January 19, 2025 End: January 19, 2025 Ankur Lovett ACCOUNT SERVICES SPECIALIST-C Referring Provider Active St art: January 19, 2025 End: January 19, 2025 Dr. Олег Ortiz MD Attending physician Active Start: January 19, 2025 End: January 19, 2025 Team Status: Inactive Member Role/Relationship Status Dates ASHLEY Lamar Attending physician Active Start: February 06, 2025 End: February 21, 2025 ASHLEY Lamar Referring Provider Active Start: February 06, 2025 End: February 21, 2025 Dr. Devon Briones MD Nurse Practitioner Active Start: February 06, 2025 End: February 21, 2025 ISSA Manzo Primary care physician Active Start: February 06, 2025 End: February 21, 2025 Roxy Rodriguez Nurse Practitioner Active Start : February 06, 2025 End: February 21, 2025 Composition Instructor Relationship Specialty Start Date End Date Ankur Lovett FNP [phone] [place], [place] [id number] PCP - General Family Medicine 01/19/24 Gabriela Rehman, JESSICA Registered Nurse Ladies Underwear Operator Manager 04/26/24 Composition Instructor Relationship Specialty Start Date End Date Ankur Lovett FNP [phone] [place], [place] [id number] PCP - General Family Medicine 01/19/24 Gabriela Rehman, RN Registered Nurse Ladies Underwear Operator Manager 04/26/24 Composition Instructor Relationship Specialty Start Date End Date Ankur Lovett FNP [phone] [address] PCP - General Family Medicine 01/19/24 Gabriela Rehman, RN Registered Nurse Ladies Underwear Operator Manager 04/26/24 Scheduled Active and Recently Administ ered Medications (unrecognized section and content) Medication Order 01/19/2024 01/20/2024 01/21/2024 amiodarone (Pacerone) tablet 100 mg 100 mg, Oral, Daily, First dose on Thu01/20/24 at 0900 0900 (Given - Provider: Rebecca Tang LPN) 0846 (Given - Provider: Rebecca Tang LPN) amLODIPine (Norvasc) tablet 2.5 mg 2.5 mg, Oral, Daily, First dose on Thu01/20/24 at 0900 0900 (Given - Provider: Rebecca Tang LPN) 0846 (Given - Provider: Rebecca Tang LPN) amLODIPine (Norvasc) tablet 2.5 mg (COMPLETED) 2.5 mg, Oral, Once, On Thu01/20/24 at 1600, For 1 dose 1604 (Given - Provider: Rebecca Tang LPN) aspirin chewable tablet 81 mg (CANCELED) 81 mg, Oral, Daily, First dose on Thu01/20/24 at 0900 0900 (Given - Provider: Rebecca Tang LPN) 0846 (Given - Provider: Rebecca Tang LPN) atorvastatin (Lipitor) tablet 80 mg 80 mg, Oral, Daily, First dose on Thu01/20/24 at 0900 0900 (Not Given - Provider: Rebecca Tang LPN - Reason: Patient/family refused - Comment: states he quit taking this) 0846 (Not Given - Provider: Rebecca Tang LPN - Reason: Patient/family refused) carvedilol (Coreg) tablet 12.5 mg 12.5 mg, Oral, 2 times daily with meals, First dose on Thu01/20/24 at 0800 0800 (Not Given - Provider: Rebecca Tang LPN - Reason: Other)1414 (Given - Provider: Rebecca Tang LPN)1802 (Given - Provider: Rebecca Tang LPN) 0846 (Given - Provider: Rebecca Tnag LPN) cholecalciferol (Vitamin D-3) tablet 1,000 Units 1,000 Units, Oral, Daily, First dose on Thu01/20/24 at 0900 0900 (Given - Provider: Rebecca Tang LPN) 0846 (Given - Provider: Rebecca Tang LPN) clopidogrel (Plavix) tablet 600 mg (COMPLETED)(Linked Group 1) 600 mg, Oral, Once, On Thu01/21/24 at 1230, For 1 dose 1312 (Given - Provid er: Rebecca Tang LPN) clopidogrel (Plavix) tablet 75 mg(Linked Group 1) 75 mg, Oral, Daily, First dose on Thu01/22/24 at 0900, For 365 days cyanocobalamin (Vitamin B-12) tablet 1,000 mcg 1,000 mcg, Oral, Daily, First dose on Thu01/20/24 at 0900 0901 (Given - Provider: Rebecca Tang LPN) 0847 (Given - Provider: Rebecca Tang LPN) finasteride (Proscar) tablet 5 mg 5 mg, Oral, Daily, First dose on Thu01/20/24 at 0900, Women should not handle crushed or broken finasteride tablets when they are or may potentially be , due to potential risk to the fetus. Do not crush, chew, or split. 0900 (Given - Provider: Rebecca Tang LPN) 0847 (Given - Provider: Rebecca Tang LPN) heparin injection 4,000 Units (COMPLETED) 4,000 Units, IntraVENous, Once, On Thu01/20/24 at 0230, For 1 dose, Initial one time bolus 0315 (Given - Provider: Maria Del Carmen Cruz RN) ketorolac (Acular) 0.5 % ophthalmic solution 1 drop 1 drop, Both Eyes, 4 times daily, First dose on Thu01/20/24 at 0900 0900 (Given - Provider: Rebecca Tang LPN)1300 (Given - Provider: Rebecca Tang LPN)1715 (Given - Provider: Rebecca Tang LPN)2000 (Not Given - Provider: Vivian Castaneda RN - Reason: Patient/family refused) 0847 (Given - Provider: Rebecca Tang LPN)1312 (Given - Provider: Rebecca Tang LPN) levothyroxine (Synthroid, Levoxyl) tablet 100 mcg 100 mcg, Oral, Daily before breakfast, First dose on Thu01/20/24 at 0600, Tube feeding (TF) interaction, obtain physician order to manage, recommend holding TF for 30 minutes before and after dose. 0618 (Given - Provider: Maria Del Carmen Cruz RN) 0624 (Given - Provider: Vivian Castaneda RN) prednisoLONE acetate (Pred-Forte) 1 % ophthalmic suspension 1 drop 1 drop, Both Eyes, 4 times daily, First dose on Thu01/20/24 at 0900 0900 (Given - Provider: Rebecca Tang LPN)1300 (Given - Provider: Rebecca Tang LPN)1715 (Given - Provider: Rebecca Tang LPN)2000 (Not Given - Provider: Vivian Castaneda RN - Reason: Patient/family refused) 0846 (Given - Provider: Rebecca Tang LPN)1312 (Given - Provider: Rebecca Tang LPN) sodium chloride 0.9% (NS) flush 5-40 mL 5-40 mL, IntraVENous, Every 12 hours, First dose on Thu01/20/24 at 0215, For Line Patency: Peripheral IV = 5 mL; Midline or Central Line = 10 mL/lumen. If following IV push medication, administer flush at same rate as the IV push. Flush volume is determined by type of infusion therapy being given. For non-viscous solutions use: Peripheral IV = 5 mL Midline or Central Line = 10 mL/lumen For viscous solutions (i.e. blood components, parenteral nutrition, contrast media, or after obtaining blood sample) use: Peripheral IV = 10 mL Midline or Central Line = 20 mL/lumen 0215 (Given - Provider: Maria Del Carmen Cruz RN)1415 (Not Given - Provider: Rebecca Tang LPN - Reason: IV Fluids Infusing) 0215 (Not Given - Provider: Vivian Castaneda RN - Reason: Other)1415 (Canceled Entry - Provider: Automatic Discharge Provider - Comment: Automatically canceled at discontinue of medication order) therapeutic multivitamin-minerals (Theragran-M) tablet 1 tablet, Oral, Daily, First dose on Thu01/20/24 at 0900 0900 (Given - Provider: Rebecca Tang LPN) 0846 (Given - Provider: Rebecca Tang LPN) ticagrelor (Brilinta) tablet 90 mg (CANCELED) 90 mg, Oral, 2 times daily, First dose on Thu01/20/24 at 2100, Recovery & On Unit, Ticagrelor maintenance dose should be given with 81mg of Aspirin. 1924 (Given - Provider: Vivian Castaneda RN) 0846 (Given - Provider: Rebecca Tang LPN) Continuous Medication Order 01/19/2024 01/20/2024 01/21/2024 heparin 25,000 units in dextrose 5% 250mL infusion (premix) (CANCELED) 5-30 Units/kg/hr 70.3 kg (3.515-21.09 mL/hr, rounded to 3.5-21.1 mL/hr), IntraVENous, Continuous, Starting on Thu01/20/24 at 0230, LOW Dose Heparin Weight Based Dosing (CAD/STEMI/NSTEMI/AFIB/ECMO) >>>>Initial dose: 12 units/kg/hr<<<< Subsequent dosing: aPTT < 30 Heparin Full re-bolus Increase infusion by 2 units/kg/hr - notify prescriber; aPTT 30-49.9 Heparin Half re-bolus Increase infusion by 1 unit/kg/hr; aPTT 50-70.9 No bolus No change; aPTT 71-95.9 Hold heparin for 60 min Decrease infusion by 1 unit/kg/hr; aPTT > 95.9 Hold heparin for 60 min Decrease infusion by 2 units/kg/hr - notify prescriber; Check aPTT: 6 hours after initiation and 6 hours after every dose change - every 12 hrs x 1 day after 2 consecutive therapeutic aPTT - daily after every 12 hrs x 1 day is complete. 0314 (New Bag - Provider: Ken Cruz RN)0704 (Handoff - Provider: Rebecca Tang LPN)1000 (New Bag - Provider: Reebcca Tang LPN)1313 (Stopped - Provider: Rebecca Tang LPN - Comment: stopped in laborer tin can) sodium chloride 0.9 % infusion () 100 mL/hr, IntraVENous, Continuous, Starting on Thu01/20/24 at 1315, For 4 hours, Recovery [facility] On Unit 1306 (New Bag - Provider: Rebecca Tang LPN)1823 (Stopped - Provider: Rebecca Tang LPN) PRN Medication Order 01/19/2024 01/20/2024 01/21/2024 acetaminophen (Tylenol) suppository 650 mg(Linked Group 2) 650 mg, Rectal, Every 6 hours PRN, mild pain (1-3), fever, For temp greater than 100.4 F (38 C), Starting on Thu01/20/24 at 0208, Administer if oral route cannot be used. Maximum dose of acetaminophen is 4000 mg from all sources in 24 hours. acetaminophen (Tylenol) tablet 1,000 mg 1,000 mg, Oral, 3 times daily PRN, mild pain (1-3), Starting on Thu01/20/24 at 0153, Maximum dose of acetaminophen is 4000 mg from all sources in 24 hours. acetaminophen (Tylenol) tablet 650 mg(Linked Group 2) 650 mg, Oral, Every 6 hours PRN, mild pain (1-3), fever, For temp greater than 100.4 F (38 C), Starting on Thu01/20/24 at 0208, Maximum dose of acetaminophen is 4000 mg from all sources in 24 hours. heparin injection 2,000 Units 2,000 Units, IntraVENous, As needed, heparin dosing algorithm, Starting on Thu01/20/24 at 0221, Half dose re-bolus based on pharmacy algorithm 0958 (Given - Provider: Rebecca Tang LPN) heparin injection (CANCELED) IntraVENous, As needed, Starting on Thu01/20/24 at 1117, Intraprocedure 1117 (Given - Provider: Shahriar Balderas, RN)1214 (Given - Provider: Chelo Sommers RN) iopamidol (Isovue-300) 61 % injection (CANCELED) As needed, Starting on Thu01/20/24 at 1243, Intraprocedure 1243 (Given - Provider: Jl Santillan MD) lidocaine (Xylocaine) 1 % injection (CANCELED) As needed, Starting on Thu01/20/24 at 1112, Intraprocedure 1112 (Given - Provider: Lorena Daley MD) nitroglycerin (Nitrostat) SL tablet 0.4 mg 0.4 mg, SubLINGual, Every 5 min PRN, chest pain, Starting on Thu01/20/24 at 0153, May administer up to 3 doses per episode. polyethylene glycol (PEG) 3350 (Miralax) packet 17 g 17 g, Oral, Daily PRN, constipation, Starting on Thu01/20/24 at 0208, 1st line for treatment of constipation - give scheduled if no bowel movement in past 24 hours. prochlorperazine (Compazine) suppository 25 mg 25 mg, Rectal, Every 12 hours PRN, nausea, vomiting, Starting on Thu01/20/24 at 0224 sodium chloride 0.9 % infusion 5-250 mL/hr, IntraVENous, PRN, if patient receiving piggyback infusions and maintenance fluids are not ordered OR KVO fluids to protect IV site / prevent frequent line interruptions / long duration, Starting on Thu01/20/24 at 0208, For piggyback infusion, administer at same rate as piggyback for a total of 25 mL. Enter 25 mL into dose field and piggyback rate into rate field of order. If piggyback is infusing at a rate less than 100 mL/hr, enter 25 mL into dose field and 100 mL/hr into rate field of order. For KVO fluids, enter rate of 20 mL/hr or less into rate field of order. sodium chloride 0.9% (NS) flush 5-40 mL 5-40 mL, IntraVENous, PRN, line care, After every IV line use, Starting on Thu01/20/24 at 0208, For Line Patency: Peripheral IV = 5 mL; Midline or Central Line = 10 mL/lumen. If following IV push medication, administer flush at same rate as the IV push. Flush volume is determined by type of infusion therapy being given. For non-viscous solutions use: Peripheral IV = 5 mL Midline or Central Line = 10 mL/lumen For viscous solutions (i.e. blood components, parenteral nutrition, contrast media, or after obtaining blood sample) use: Peripheral IV = 10 mL Midline or Central Line = 20 mL/lumen ticagrelor (Brilinta) tablet (CANCELED) Oral, As needed, Starting on Thu01/20/24 at 1113, Intraprocedure 1113 (Given - Provider: Shahriar Balderas RN) verapamil (Isoptin) injection (CANCELED) As needed, Starting on Thu01/20/24 at 1113, Intraprocedure 1113 (Given - Provider: Lorena Daley MD) Linked Groups Order Group 1: clopidogrel (Plavix) tablet 600 mg (COMPLETED)Jump to med 600 mg, Oral, Once, On Amebr 01/21/24 at 1230, For 1 dose And clopidogrel (Plavix) tablet 75 mgJump to med 75 mg, Oral, Daily, First dose on Thu01/22/24 at 0900, For 365 days Group 2: acetaminophen (Tylenol) tablet 650 mgJump to med 650 mg, Oral, Every 6 hours PRN, mild pain (1-3), fever, For temp greater than 100.4 F (38 C), Starting on Thu01/20/24 at 0208, Maximum dose of acetaminophen is 4000 mg from all sources in 24 hours. Or acetaminophen (Tylenol) suppository 650 mgJump to med 650 mg, Rectal, Every 6 hours PRN, mild pain (1-3), fever, For temp greater than 100.4 F (38 C), Starting on Thu01/20/24 at 0208, Administer if oral route cannot be used. Maximum dose of acetaminophen is 4000 mg from all sources in 24 hours. Scheduled Medication Order 04/24/2024 04/25/2024 04/26/2024 amiodarone (Pacerone) tablet 100 mg 100 mg, Oral, Daily, First dose on Thu04/25/24 at 1300 1321 (Given - Provider: Esa Clark RN) 0843 (Given - Provider: Esa Clark RN) amLODIPine (Norvasc) tablet 2.5 mg 2.5 mg, Oral, Daily, First dose (after last modification) on Thu04/26/24 at 0900 0843 (Given - Provid er: Esa Clark RN) aspirin EC tablet 81 mg 81 mg, Oral, Daily, First dose on Thu04/26/24 at 0900, Do not crush, chew, or split. 0844 (Given - Provid er: Esa Clark RN) carvedilol (Coreg) tablet 12.5 mg 12.5 mg, Oral, 2 times daily with meals, First dose on Thu04/25/24 at 1700, On hold since Thu04/25/2024 at 1257 until manually unheld 1257 (Held by provider - Provider: Kaila Curiel, JIG GRINDER - FACILITY MAINTENANCE WORKER - Reason: Other - Comment: Wide QRS post TAVR)1700 (Dose Auto Held) 0800 (Dose Auto Held)1513 (Unheld by provider - Provider: Automatic Discharge Provider) carvedilol (Coreg) tablet 12.5 mg (COMPLETED) 12.5 mg, Oral, Once, On Thu04/26/24 at 1230, For 1 dose 1240 (Given - Provid er: Esa Clark RN) clindamycin in D5W (Cleocin) IVPB 900 mg (COMPLETED) 900 mg, IntraVENous, at 50 mL/hr, Administer over 60 Minutes, [employer] to O.R., On Thu04/25/24 at 0930, For 1 dose, Preprocedure, Administer within 1 hour prior to incision. Recommend to repeat in 3-4 hours after initial dose if still intra-op. premix bag, Suspected Indication (Select all that apply): Surgical Prophylaxis 1052 (Given - Provider: Iam Rutledge APRN - SMUTTER) clopidogrel (Plavix) tablet 75 mg 75 mg, Oral, Daily, First dose on Thu04/26/24 at 0900, Indications: Percutaneous Coronary Intervention 0844 (Given - Provid er: Esa Clark RN) finasteride (Proscar) tablet 5 mg 5 mg, Oral, Daily, First dose on Thu04/25/24 at 1300, Women should not handle crushed or broken finasteride tablets when they are or may potentially be , due to potential risk to the fetus. Do not crush, chew, or split. 1441 (Given - Provider: Esa Clark RN) 0844 (Given - Provider: Esa Clark RN) mupirocin (Bactroban) 2 % ointment 1 Application 1 Application, Nasal, 2 times daily, First dose on Thu04/25/24 at 1230, For 5 days, Recovery & On Unit, Indications: MRSA Nasal Decolonization 1323 (Given - Provider: Esa Clark, RN)2004 (Given - Provider: Danielle Landeros RN) 0844 (Given - Provider: Esa Clark RN) Continuous Medication Order 04/24/2024 04/25/2024 04/26/2024 sodium chloride 0.9 % infusion (CANCELED) 50 mL/hr, IntraVENous, Continuous, Starting on Thu04/25/24 at 0930, Preprocedure, Upon admission to sameday - please start iv if patient does not have iv access. 0946 (New Bag - Provider: Janice Escobar RN)1043 (Continued by Anesthesia - Provider: Iam Rutledge APRN - ALFRED)1200 (Anesthesia Volume Adjustment - Provider: GABRIELA Bishop CRNA) PRN Medication Order 04/24/2024 04/25/2024 04/26/2024 acetaminophen (Tylenol) tablet 1,000 mg 1,000 mg, Oral, 3 times daily PRN, mild pain (1-3), Starting on Thu04/25/24 at 1257, Maximum dose of acetaminophen is 4000 mg from all sources in 24 hours. 1321 (Given - Provider: Esa Clark RN) heparin 1,000 Units in sodium chloride 0.9 % 500 mL OR irrigation (CANCELED) As needed, Starting on Thu04/25/24 at 1044, Intraprocedure 1044 (Given - Provider: Jl Santillan MD)1054 (Given - Provider: Beck Santillan MD)1055 (Given - Provider: Beck Santillan MD) iodixanol (VISIPaque) 320 MG/ML injection (COMPLETED) Continuous PRN, Starting on Thu04/25/24 at 1203, Intraprocedure 1203 (New Bag - Provider: Beck Santillan MD) lidocaine (Xylocaine) 1 % injection (CANCELED) As needed, Starting on Thu04/25/24 at 1203, Intraprocedure 1203 (Given - Provider: Jl Santillan MD) melatonin tablet 3 mg 3 mg, Oral, Nightly PRN, sleep, Starting on Thu04/25/24 at 2247 sodium chloride 0.9 % irrigation solution (CANCELED) As needed, Starting on Thu04/25/24 at 1044, Intraprocedure 1044 (Given - Provider: Jl Santillan MD - Comment: VALVE RINSE) FOR RECORDS PERTAINING TO PATIENTS WHO ARE OR HAVE BEEN ENROLLED IN A CHEMICAL DEPENDENCY/SUBSTANCEABUSE PROGRAM, SOME INFORMATION MAY BE OMITTED. This clinical summary was aggregated from multiple sources. Caution should be exercised in using it in the provision of clinical care. This summary normalizes information from multiple sources, and as a consequence, information in this document may materially change the coding, format and clinical context of patient data. In addition, data may be omitted in some cases. CLINICAL DECISIONS SHOULD BE BASED ON THE PRIMARY CLINICAL RECORDS. [facility] [employer] [facility]. provides no warranty or guarantee of the accuracy or completeness of information in this document.
== END | disposition home or self-care (01) ==
LOC: CT 07:52
PROVIDERS: PCP Nurse Practitioner Family; Referring Provider Specialist; Visit Provider Specialist
DX: M19.111 Post-traumatic osteoarthritis, right shoulder (principal); M75.121 Complete rotator cuff tear or rupture of right shoulder, not specified as traumatic
CPT/HCPCS: 73200